=== PATIENT | male | born 1930 | race Caucasian/White ===

== ENCOUNTER 2019-07-29 17:17 | Emergency (ER) | payer MEDICARE ==
[2019-07-29] MEDS ORDERED: Sodium Chloride 0.9% 1000 ML 1,000 ML IV STA (18:04)
[2019-07-29] MEDS ORDERED: Zofran 4 MG/2 ML VIAL IV ONE (18:04)
[2019-07-29] MEDS ORDERED: MORPHINE SULFATE 2 MG INJ IV ONE (18:04)
--- NOTE | 2019-07-29 18:07 | ERPHSYRPT ---
- History of Present Illness Time Seen by Provider: 07/29/19 17:50 Source: patient, family Exam Limitations: no limitations Patient Subjective Stated Complaint: family states patient has had diarrhea and vomiting for four days. was inpatient at [facility] two days ago overnight and received fluids. was sent home yesterday to stay with family but is not any better. unable to keep fluids down. Triage Nursing Assessment: to room per w/c. skin w/d, color pale, resp nonlabored. patient alert. abd soft, nontender. Physician History: nausea vomiting and diarrhea for last 4 days. Also has some abdominal pain. Patient was admitted at [facility] the day before yesterday, was kept her overnight and was sent home and asked morning with a diagnosis of acute gastroenteritis at, dehydration and acute kidney injury. Daughter states that there he started feeling sick again even before they reached home. Timing/Duration: day(s) (4), intermittent Severity: moderate Modifying Factors: Improves With: eating. Worsens With: cold therapy, immobilization, medication, movement, rest Associated Symptoms: nausea, vomiting, abdominal pain Allergies/Adverse Reactions: aspirin Adverse Reaction (Verified 07/29/19 17:38) Hx Tetanus, Diphtheria Vaccination/Date Given: No Hx Influenza Vaccination/Date Given: No Hx Pneumococcal Vaccination/Date Given: No - Review of Systems Constitutional: No Fever, No Chills Eyes: No Symptoms Ears, Nose, & Throat: No Symptoms Respiratory: No Cough, No Dyspnea Cardiac: No Chest Pain, No Edema, No Syncope Abdominal/Gastrointestinal: Abdominal Pain, Nausea, Vomiting, Diarrhea, No Constipation, No Hematemesis, No Hematochezia, No Melena, No Dysphagia, No Appetite Changes Genitourinary Symptoms: No Dysuria Musculoskeletal: No Back Pain, No Neck Pain Skin: No Rash Neurological: No Dizziness, No Focal Weakness, No Sensory Changes Psychological: No Symptoms Endocrine: No Symptoms All Other Systems: Reviewed and Negative - Past Medical History Pertinent Past Medical History: Yes Cardiac History: Arrhythmia, High Cholesterol, Hypertension Respiratory History: Bronchitis Endocrine Medical History: Diabetes Type II Musculoskeletal History: Arthritis GI Medical History: GERD Psycho-Social History: Anxiety Male Reproductive Disorders: Prostate Cancer Other Medical History: gout - Past Surgical History Past Surgical History: Yes Gastrointestinal: Hemorrhoidectomy Musculoskeletal: Orthopedic Surgery - Social History Smoking Status: Former smoker Exposure to second hand smoke: Yes Drug Use: none Patient Lives Alone: No - Nursing Vital Signs Nursing Vital Signs: Initial Vital Signs Temperature 97.6 F 07/29/19 17:36 Pulse Rate 63 07/29/19 17:36 Respiratory Rate 16 07/29/19 17:36 Blood Pressure 160/86 07/29/19 17:36 O2 Sat by Pulse Oximetry 98 07/29/19 17:36 Pain Scale Pain Intensity 0 - Physical Exam General Appearance: no apparent distress, alert Eye Exam: PERRL/EOMI, eyes nml inspection Ears, Nose, Throat Exam: normal ENT inspection, TMs normal, pharynx normal, moist mucous membranes Neck Exam: normal inspection, non-tender, supple, full range of motion Respiratory Exam: normal breath sounds, lungs clear, No respiratory distress Cardiovascular Exam: regular rate/rhythm, normal heart sounds, normal peripheral pulses Gastrointestinal/Abdomen Exam: soft, normal bowel sounds, No tenderness, No mass , No pulsatile mass, No rebound, No hernia, No hepatomegaly, No organomegaly, No splenomegaly Back Exam: normal inspection, normal range of motion, No CVA tenderness, No vertebral tenderness Extremity Exam: normal inspection, normal range of motion, pelvis stable Neurologic Exam: alert, oriented x 3, cooperative, normal mood/affect, nml cerebellar function, nml station & gait, sensation nml, No motor deficits Skin Exam: normal color, warm, dry, No rash Lymphatic Exam: No adenopathy SpO2: 98 - Course Nursing assessment & vital signs reviewed: Yes Ordered Tests: Active Orders 24 hr Category Date Time Status IV Insertion STAT Care 07/29/19 18:04 Active CBC W DIFF Stat Lab 07/29/19 18:40 Completed CMP Stat Lab 07/29/19 19:58 Completed LIPASE Stat Lab 07/29/19 18:40 Completed MAGNESIUM Stat Lab 07/29/19 18:40 Completed Medication Summary Discontinued Medications Generic Name Dose Route Start Last Admin Trade Name Freq PRN Reason Stop Dose Admin Sodium Chloride 1,000 mls @ 999 mls/hr 07/29/19 18:04 07/29/19 18:30 Sodium Chloride 0.9% 1000 Ml IV 07/29/19 19:04 999 mls/hr .Q1H1M STA Administration Sodium Chloride Confirm 07/29/19 18:23 Sodium Chloride 0.9% 1000 Ml Administered 07/29/19 18:24 Dose 1,000 mls @ ud .ROUTE .STK-MED ONE Morphine Sulfate 2 mg 07/29/19 18:04 07/29/19 18:37 Morphine Sulfate 2 Mg Inj IV 07/29/19 18:05 2 mg STAT ONE Administration Morphine Sulfate Confirm 07/29/19 18:23 Morphine Sulfate 2 Mg Inj Administered 07/29/19 18:24 Dose 2 mg .ROUTE .STK-MED ONE Ondansetron HCl 4 mg 07/29/19 18:04 07/29/19 18:35 Zofran 4 Mg/2 Ml Vial IV 07/29/19 18:05 4 mg STAT ONE Administration Ondansetron HCl Confirm 07/29/19 18:22 Zofran 4 Mg/2 Ml Vial Administered 07/29/19 18:23 Dose 4 mg .ROUTE .STK-MED ONE Lab/Rad Data: Laboratory Result Diagrams 07/29/19 18:40 07/29/19 19:58 Laboratory Results 07/29/19 07/29/19 07/29/19 Range/Units 19:58 18:40 18:40 WBC (4.0-10.5) K/mm3 RBC (4.1-5.6) M/mm3 Hgb (12.5-18.0) gm/dl Hct (42-50) % MCV (78-100) fl MCH (26-32) pg MCHC (32-36) g/dl RDW (11.5-14.0) % Plt Count (150-450) K/mm3 MPV (6-9.5) fl Gran % (36.0-66.0) % Eos # (Auto) (0-0.5) Absolute Lymphs (auto) (1.0-4.6) Absolute Monos (auto) (0.0-1.3) Lymphocytes % (24.0-44.0) % Monocytes % (0.0-12.0) % Eosinophils % (0.00-5.0) % Basophils % (0.0-0.4) % Absolute Granulocytes (1.4-6.9) Basophils # (0-0.4) Sodium 137 (137-145) mmol/L Potassium 3.6 (3.5-5.1) mmol/L Chloride 107 (98-107) mmol/L Carbon Dioxide 20 L (22-30) mmol/L Anion Gap 13.1 (5-15) MEQ/L BUN 19 (9-20) mg/dL Creatinine 1.22 (0.66-1.25) mg/dL Estimated GFR 59.7 ML/MIN Glucose 93 (74-106) mg/dL Calcium 8.7 (8.4-10.2) mg/dL Magnesium 1.7 (1.6-2.3) mg/dL Total Bilirubin 0.60 (0.2-1.3) mg/dL AST 24 (17-59) U/L ALT 14 (0-50) U/L Alkaline Phosphatase 89 (38-126) U/L Serum Total Protein 6.7 (6.3-8.2) g/dL Albumin 3.7 (3.5-5.0) g/dL Lipase 68 (23-300) U/L 07/29/19 Range/Units 18:40 WBC 4.3 (4.0-10.5) K/mm3 RBC 4.05 L (4.1-5.6) M/mm3 Hgb 11.0 L (12.5-18.0) gm/dl Hct 34.3 L (42-50) % MCV 84.7 (78-100) fl MCH 27.2 (26-32) pg MCHC 32.1 (32-36) g/dl RDW 16.3 H (11.5-14.0) % Plt Count 131 L (150-450) K/mm3 MPV 10.5 H (6-9.5) fl Gran % 33.4 L (36.0-66.0) % Eos # (Auto) 0.06 (0-0.5) Absolute Lymphs (auto) 1.68 (1.0-4.6) Absolute Monos (auto) 1.07 (0.0-1.3) Lymphocytes % 39.5 (24.0-44.0) % Monocytes % 25.2 H (0.0-12.0) % Eosinophils % 1.4 (0.00-5.0) % Basophils % 0.5 (0.0-0.4) % Absolute Granulocytes 1.42 (1.4-6.9) Basophils # 0.02 (0-0.4) Sodium (137-145) mmol/L Potassium (3.5-5.1) mmol/L Chloride (98-107) mmol/L Carbon Dioxide (22-30) mmol/L Anion Gap (5-15) MEQ/L BUN (9-20) mg/dL Creatinine (0.66-1.25) mg/dL Estimated GFR ML/MIN Glucose (74-106) mg/dL Calcium (8.4-10.2) mg/dL Magnesium (1.6-2.3) mg/dL Total Bilirubin (0.2-1.3) mg/dL AST (17-59) U/L ALT (0-50) U/L Alkaline Phosphatase (38-126) U/L Serum Total Protein (6.3-8.2) g/dL Albumin (3.5-5.0) g/dL Lipase (23-300) U/L - Progress Progress: improved Progress Note: 07/29/19 19:56 Awaiting results. 07/29/19 20:23 patient says I'm feeling great and I am ready go home. Counseled pt/family regarding: lab results, diagnosis, need for follow-up - Departure Departure Disposition: Home Clinical Impression: Nausea vomiting and diarrhea Condition: Good Critical Care Time: No Referrals: CHANDANA DUNNE MD [Primary Care Provider] - 07/30/19 Instructions: Vomiting -- Adult, Diarrhea and Traveler's Diarrhea -- Adult Prescriptions: Ondansetron ODT 4 MG [Zofran Odt 4 mg] 4 mg PO Q6H PRN PRN #10 tab.rapdis PRN Reason: Vomiting
[2019-07-29] MEDS ORDERED: Zofran 4 MG/2 ML VIAL ONE (18:22)
[2019-07-29] MEDS ORDERED: Sodium Chloride 0.9% 1000 ML 1,000 ML ONE (18:23)
[2019-07-29] MEDS ORDERED: MORPHINE SULFATE 2 MG INJ ONE (18:23)
[2019-07-29 18:41] LABS: Absolute Neutrophil Ct (ANC) 1.42 (1.4-6.9); BASOPHIL % 0.5 % (0.0-0.4); Basophil (Absolute #) 0.02 (0-0.4); Eosinophil % 1.4 % (0.00-5.0); Eosinophil (Absolute #) 0.06 (0-0.5); Hematocrit 34.3 % (42-50); Lymphocyte (Absolute #) 1.68 (1.0-4.6); Lymphocytes % 39.5 % (24.0-44.0); Mean Cell Volume 84.7 fl (78-100); Mean Corpuscular Hemoglobin 27.2 pg (26-32); Mean Corpuscular Hgb Concent. 32.1 g/dl (32-36); Mean Platelet Volume 10.5 fl (6-9.5); Monocyte (Absolute #) 1.07 (0.0-1.3); Monocytes % 25.2 % (0.0-12.0); Neutrophil % 33.4 % (36.0-66.0); Platelet Count 131 K/mm3 (150-450); Red Blood Count 4.05 M/mm3 (4.1-5.6); Red Cell Distribution Width 16.3 % (11.5-14.0); White Blood Count 4.3 K/mm3 (4.0-10.5)
[2019-07-29 20:07] LABS: ALBUMIN 3.7 g/dL (3.5-5.0); ANION GAP 13.1 MEQ/L (5-15); BILIRUBIN,TOTAL 0.6 mg/dL (0.2-1.3); Calcium 8.7 mg/dL (8.4-10.2); Creatinine 1 1.22 mg/dL (0.66-1.25); Potassium 3.6 mmol/L (3.5-5.1); Total Protein 6.7 g/dL (6.3-8.2)
[2019-07-29 21:47] VITALS: BP 185/75; PULSE 60; O2SAT 99
== END 2019-07-29 21:40 | disposition home or self-care (01) ==
LOC: ED 17:17
DX: R11.2 Nausea with vomiting, unspecified (principal); R19.7 Diarrhea, unspecified; I10 Essential (primary) hypertension; E11.9 Type 2 diabetes mellitus without complications; K21.9 Gastro-esophageal reflux disease without esophagitis; F41.9 Anxiety disorder, unspecified; Z85.46 Personal history of malignant neoplasm of prostate
CPT/HCPCS: 36000; 36415; 80053; 83690; 83735; 85025; 96374; 96375; 99284; J2270; J2405

== ENCOUNTER 2019-08-11 14:12 | Observation (INO) | payer MEDICARE ==
[2019-08-11] MEDS ORDERED: ZOFRAN ODT 4 MG PO PRN (15:33)
[2019-08-11] MEDS ORDERED: Sodium Chloride 0.9% 1000 ML 1,000 ML IV STA (16:38)
[2019-08-11] MEDS: Carafate 1 GM PO SCH (16:59)
[2019-08-11] MEDS ORDERED: Phenergan 25 MG INJ IV PRN (17:09)
[2019-08-11] MEDS ORDERED: NovoLOG Insulin SQ PRN (17:09)
[2019-08-11] MEDS ORDERED: FEVERALL 650 MG PR PRN (17:09)
[2019-08-11 17:45] LABS: Absolute Neutrophil Ct (ANC) 2.75 (1.4-6.9); BASOPHIL % 0.5 % (0.0-0.4); Basophil (Absolute #) 0.03 (0-0.4); Eosinophil (Absolute #) 0.36 (0-0.5); Hematocrit 32.1 % (42-50); Hemoglobin 10.3 gm/dl (12.5-18.0); Lymphocyte (Absolute #) 1.75 (1.0-4.6); Lymphocytes % 29.4 % (24.0-44.0); Mean Cell Volume 85.1 fl (78-100); Mean Corpuscular Hemoglobin 27.3 pg (26-32); Mean Corpuscular Hgb Concent. 32.1 g/dl (32-36); Mean Platelet Volume 10.3 fl (7.5-11.0); Monocyte (Absolute #) 1.07 (0.0-1.3); Neutrophil % 46.1 % (36.0-66.0); Platelet Count 171 K/mm3 (150-450); Red Blood Count 3.77 M/mm3 (4.1-5.6); Red Cell Distribution Width 15.5 % (11.5-14.0)
[2019-08-11 17:51] LABS: ALBUMIN 3.5 g/dL (3.5-5.0); ANION GAP 12.2 MEQ/L (5-15); BILIRUBIN,TOTAL 0.6 mg/dL (0.2-1.3); Calcium 8.9 mg/dL (8.4-10.2); Creatinine 1 1.78 mg/dL (0.66-1.25); Potassium 4.4 mmol/L (3.5-5.1); Total Protein 6.5 g/dL (6.3-8.2)
[2019-08-11] MEDS: ROCEPHIN 2 Gm-D5w 50ML BAG** 2 G/50 ML IVPB IV SCH (18:44)
[2019-08-11] MEDS: Zithromax 500 MG/ 250 ML NaCl Premix 500 MG/250 ML IVPB IV SCH (19:25)
[2019-08-11] MEDS: Pepcid 20 MG PO SCH (21:52)
[2019-08-11] MEDS: Flomax 0.4 MG PO SCH (21:52)
[2019-08-11] MEDS: Sodium Chloride 0.9% 1000 ML 1,000 ML IV SCH (21:52)
[2019-08-11] MEDS: ELIQUIS 2.5 MG TABLET PO SCH (21:53)
[2019-08-11] MEDS: TENORMIN 50 MG PO SCH (21:53)
[2019-08-11] MEDS ORDERED: NON-FORMULARY ITEM (Apixaban [Eliquis] 5 MG) PO SCH (22:00)
[2019-08-11] MEDS ORDERED: NON-FORMULARY ITEM (Ranitidine Hcl [Ranitidine Hcl] 150 MG) PO SCH (22:00)
[2019-08-12 01:15] LABS: Appearance CLEAR (CLEAR); Bilirubin NEGATIVE (NEGATIVE); Blood NEGATIVE Ery/ul (0-5); Glucose NEGATIVE (NEGATIVE); Ketones NEGATIVE (NEGATIVE); Leukocyte Esterase NEGATIVE (NEGATIVE); Nitrite NEGATIVE (NEGATIVE); Protein,Urine Dip NEGATIVE (Negative); Specific Gravity 1.005 (1.005-1.025); Urobilinogen NEGATIVE mg/dL (0-1)
[2019-08-12] MEDS: Carafate 1 GM PO SCH ×2 (07:51→17:06)
[2019-08-12] MEDS: Sodium Chloride 0.9% 1000 ML 1,000 ML IV SCH (07:51)
--- NOTE | 2019-08-12 08:38 | XRAY ---
Indication: Nausea and cough. Comparison: October 21, 2018. PA/lateral chest remains hyperinflated without focal infiltrate, consolidation, or large effusion. There remains a few tiny calcified granulomas. Heart is not enlarged again with tortuous descending aorta. Bony thorax intact again with mild osteopenia and degenerative changes. Impression: Stable nonacute hyperinflated chest with chronic features.
--- NOTE | 2019-08-12 08:39 | XRAY ---
Indication: Nausea, cough, intermittent constipation and diarrhea. Multiple contiguous axial images obtained through the abdomen and pelvis without contrast as ordered. Comparison: None Lung bases demonstrates bibasilar dependent atelectasis. No infiltrate or effusion. Heart is not enlarged. Small hiatal hernia with distal esophagus mildly distended presumed from gastroesophageal reflux. Stomach is distended with fluid/fluid. Noncontrasted stomach and bowel loops appear nonobstructed. Normal appendix. No free fluid/air. Urinary bladder is abnormally distended with enlarged prostate gland impressing on the base of the bladder. Left kidney demonstrates cortical thinning/scarring. No hydronephrosis or hydroureter. Remaining liver, gallbladder, pancreas, spleen, adrenal glands, kidneys, and ureters appear unremarkable for noncontrast exam. There are mild scattered aortoiliac calcifications without AAA. Osseous structures demonstrates osteopenia and mild/moderate degenerative changes throughout the thoracolumbar spine. 2 cm right sartorius and 3.2 cm left rectus femoris intermuscular lipomas. Impression: 1. Hiatal hernia with mild distended distal esophagus presumed from gastroesophageal reflux. 2. Abnormally distended urinary bladder with enlarged prostate gland. Rule out outlet obstruction/dysuria. 3. 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
[2019-08-12] MEDS ORDERED: NON-FORMULARY ITEM (Pravastatin Sodium [Pravastatin Sodium] 20 MG) PO SCH (10:00)
[2019-08-12] MEDS ORDERED: NON-FORMULARY ITEM (Glimepiride [Glimepiride] 1 MG) PO SCH (10:00)
[2019-08-12] MEDS: Protonix 40MG Tablet PO SCH (10:44)
[2019-08-12] MEDS: NORVASC 5 MG PO SCH (10:44)
[2019-08-12] MEDS: Amaryl 2 MG PO SCH (10:44)
[2019-08-12] MEDS: ZYLOPRIM 100 MG PO SCH (10:44)
[2019-08-12] MEDS: TENORMIN 50 MG PO SCH ×3 (10:44→20:19)
[2019-08-12] MEDS: ELIQUIS 2.5 MG TABLET PO SCH ×2 (10:44→20:19)
[2019-08-12] MEDS: Cozaar 50 MG PO SCH (10:45)
[2019-08-12] MEDS: ZOCOR 20MG PO SCH (10:45)
[2019-08-12] MEDS: Pepcid 20 MG PO SCH ×2 (10:45→20:26)
--- NOTE | 2019-08-12 13:16 | PCM.NOTE ---
Date and Time: 08/12/19 1315 Subjective Assessment: doing better - Review of Systems Constitutional: No Fever, No Chills Eyes: No Symptoms Ears, Nose, & Throat: No Symptoms Respiratory: No Cough, No Short Of Breath Cardiac: No Chest Pain, No Edema, No Syncope Abdominal/Gastrointestinal: No Abdominal Pain, No Nausea, No Vomiting, No Diarrhea Genitourinary Symptoms: No Dysuria Musculoskeletal: No Back Pain, No Neck Pain Skin: No Rash Neurological: No Dizziness, No Focal Weakness, No Sensory Changes Psychological: No Symptoms Endocrine: No Symptoms Hematologic/Lymphatic: No Symptoms Immunological/Allergic: No Symptoms Objective Exam General Appearance: no apparent distress, alert Neurologic Exam: alert, oriented x 3, cooperative, normal mood/affect, nml cerebellar function, sensation nml, No motor deficits Skin Exam: normal color, warm, dry Eye Exam: PERRL, EOMI, eyes nml inspection Ears, Nose, Throat Exam: normal ENT inspection, pharynx normal, moist mucous membranes Neck Exam: normal inspection, non-tender, supple, full range of motion Respiratory Exam: normal breath sounds, lungs clear, No respiratory distress Cardiovascular Exam: regular rate/rhythm, normal heart sounds Gastrointestinal/Abdomen Exam: soft, No tenderness, No mass Extremity Exam: normal inspection, normal range of motion Back Exam: normal inspection, normal range of motion, No CVA tenderness, No vertebral tenderness Male Genitalia Exam: deferred Rectal Exam: deferred OBJECTIVE DATA Vital Signs: Vital Signs - 24 hr Temp Pulse Resp BP BP BP Pulse Ox 08/12/19 10:44 56 L 184/77 08/12/19 08:00 98.2 F 56 L 16 184/77 96 08/12/19 07:42 97 08/12/19 04:00 97.7 F 55 L 17 134/65 96 08/12/19 00:00 97.7 F 65 17 160/70 98 08/11/19 22:25 66 16 97 08/11/19 21:53 65 186/78 08/11/19 20:00 97.9 F 65 18 186/78 97 08/11/19 15:32 98 F 62 20 171/76 92 L 08/11/19 14:47 97.8 F 55 L 20 192/74 94 L 08/11/19 14:39 97.8 F 55 L 20 192/74 94 L Pain Assessment - Last Documented Pain Intensity 0 Pain Scale Used 0-10 Pain Scale Intake and Output: Intake & Output 08/10/19 08/11/19 08/12/19 08/13/19 11:59 11:59 11:59 11:59 Intake Total 2581 Output Total 3050 Balance -469 Weight 82.2 kg Lab Results: Accuchecks Date 08/11/19 Time 22:00 Accucheck Value: 99 Accucheck Value: 152 Lab Results-Last 24 Hours 08/11/19 08/11/19 08/11/19 Range/Units 17:15 17:15 17:20 WBC 6.0 (4.0-10.5) K/mm3 RBC 3.77 L (4.1-5.6) M/mm3 Hgb 10.3 L (12.5-18.0) gm/dl Hct 32.1 L (42-50) % MCV 85.1 (78-100) fl MCH 27.3 (26-32) pg MCHC 32.1 (32-36) g/dl RDW 15.5 H (11.5-14.0) % Plt Count 171 (150-450) K/mm3 MPV 10.3 (7.5-11.0) fl Gran % 46.1 (36.0-66.0) % Eos # (Auto) 0.36 (0-0.5) Absolute Lymphs (auto) 1.75 (1.0-4.6) Absolute Monos (auto) 1.07 (0.0-1.3) Lymphocytes % 29.4 (24.0-44.0) % Monocytes % 18.0 H (0.0-12.0) % Eosinophils % 6.0 H (0.00-5.0) % Basophils % 0.5 (0.0-0.4) % Absolute Granulocytes 2.75 (1.4-6.9) Basophils # 0.03 (0-0.4) Sodium 135 L (137-145) mmol/L Potassium 4.4 (3.5-5.1) mmol/L Chloride 104 (98-107) mmol/L Carbon Dioxide 23 (22-30) mmol/L Anion Gap 12.2 (5-15) MEQ/L BUN 18 (9-20) mg/dL Creatinine 1.78 H (0.66-1.25) mg/dL Estimated GFR 38.6 ML/MIN Glucose 144 H (74-106) mg/dL Hemoglobin A1c (4.5-6.0) % Calcium 8.9 (8.4-10.2) mg/dL Total Bilirubin 0.60 (0.2-1.3) mg/dL AST 14 L (17-59) U/L ALT 10 (0-50) U/L Alkaline Phosphatase 90 (38-126) U/L NT-Pro-B Natriuret Pep (0-1800) pg/mL Serum Total Protein 6.5 (6.3-8.2) g/dL Albumin 3.5 (3.5-5.0) g/dL Amylase 72 (30-110) U/L Lipase 70 (23-300) U/L Urine Color (YELLOW) Urine Appearance (CLEAR) Urine pH (5-6) Ur Specific [place] (1.005-1.025) Urine Protein (Negative) Urine Ketones (NEGATIVE) Urine Blood (0-5) Srinivasan/ul Urine Nitrite (NEGATIVE) Urine Bilirubin (NEGATIVE) Urine Urobilinogen (0-1) mg/dL Ur Leukocyte Esterase (NEGATIVE) Urine WBC (Auto) (0-5) /HPF Urine RBC (Auto) (0-2) /HPF U Epithel Cells (Auto) (FEW) /HPF Urine Bacteria (Auto) (NEGATIVE) /HPF Urine Culture Reflexed (NO) Urine Glucose (NEGATIVE) mg/dL 08/11/19 08/11/19 08/11/19 Range/Units 18:15 Unknown Unknown WBC (4.0-10.5) K/mm3 RBC (4.1-5.6) M/mm3 Hgb (12.5-18.0) gm/dl Hct (42-50) % MCV (78-100) fl MCH (26-32) pg MCHC (32-36) g/dl RDW (11.5-14.0) % Plt Count (150-450) K/mm3 MPV (7.5-11.0) fl Gran % (36.0-66.0) % Eos # (Auto) (0-0.5) Absolute Lymphs (auto) (1.0-4.6) Absolute Monos (auto) (0.0-1.3) Lymphocytes % (24.0-44.0) % Monocytes % (0.0-12.0) % Eosinophils % (0.00-5.0) % Basophils % (0.0-0.4) % Absolute Granulocytes (1.4-6.9) Basophils # (0-0.4) Sodium (137-145) mmol/L Potassium (3.5-5.1) mmol/L Chloride (98-107) mmol/L Carbon Dioxide (22-30) mmol/L Anion Gap (5-15) MEQ/L BUN (9-20) mg/dL Creatinine (0.66-1.25) mg/dL Estimated GFR ML/MIN Glucose (74-106) mg/dL Hemoglobin A1c 6.45 H (4.5-6.0) % Calcium (8.4-10.2) mg/dL Total Bilirubin (0.2-1.3) mg/dL AST (17-59) U/L ALT (0-50) U/L Alkaline Phosphatase (38-126) U/L NT-Pro-B Natriuret Pep 390 (0-1800) pg/mL Serum Total Protein (6.3-8.2) g/dL Albumin (3.5-5.0) g/dL Amylase (30-110) U/L Lipase (23-300) U/L Urine Color STRAW (YELLOW) Urine Appearance CLEAR (CLEAR) Urine pH 6.0 (5-6) Ur Specific [place] 1.005 (1.005-1.025) Urine Protein NEGATIVE (Negative) Urine Ketones NEGATIVE (NEGATIVE) Urine Blood NEGATIVE (0-5) Srinivasan/ul Urine Nitrite NEGATIVE (NEGATIVE) Urine Bilirubin NEGATIVE (NEGATIVE) Urine Urobilinogen NEGATIVE (0-1) mg/dL Ur Leukocyte Esterase NEGATIVE (NEGATIVE) Urine WBC (Auto) NONE (0-5) /HPF Urine RBC (Auto) NONE (0-2) /HPF U Epithel Cells (Auto) NONE (FEW) /HPF Urine Bacteria (Auto) NONE (NEGATIVE) /HPF Urine Culture Reflexed NO (NO) Urine Glucose NEGATIVE (NEGATIVE) mg/dL Radiology Exams: Radiology Procedures Category Date Time Status ABDOMEN AND PELVIS W/0 CONTRAS [CT] Stat Exams 08/11/19 17:09 Completed CHEST 2 VIEWS (PA AND LAT) Stat Exams 08/11/19 18:44 Completed CHEST WITHOUT CONTRAST [CT] Stat Exams 08/12/19 13:10 Ordered Assessment/Plan (1) Benign prostatic hyperplasia Current Visit: Yes Status: Acute Qualifiers: Lower urinary tract symptom presence: symptoms present Lower urinary tract symptom detail: incomplete bladder emptying Qualified Code(s): N40.1 - Benign prostatic hyperplasia with lower urinary tract symptoms; R39.14 - Feeling of incomplete bladder emptying Code(s): N40.0 - BENIGN PROSTATIC HYPERPLASIA WITHOUT LOWER URINRY TRACT SYMP (2) Nausea vomiting and diarrhea Current Visit: No Status: Acute Code(s): R11.2 - NAUSEA WITH VOMITING, UNSPECIFIED; R19.7 - DIARRHEA, UNSPECIFIED
--- NOTE | 2019-08-12 16:57 | XRAY ---
Indication: Severe dysphasia. Multiple contiguous axial images obtained through the chest without contrast as ordered. Comparison: None Lungs demonstrates mild bilateral dependent atelectasis, minimal bibasilar fibrosis/scarring, and a few tiny bilateral calcified granulomas. No suspicious pulmonary mass, infiltrate, or effusion. Heart is not enlarged. Aorta demonstrates mild scattered calcifications without aneurysmal dilatation. Multiple small bilateral hilar and tiny subcarinal calcified lymph nodes. No pathologic mediastinal lymphadenopathy. Mid to distal esophagus is mildly fluid distended presumed from gastroesophageal reflux. Small hiatal hernia. Bony thorax demonstrates osteopenia and flowing osteophytes throughout the spine. CT abdomen/pelvis reported one day earlier. Impression: 1. Fluid distended mid to distal esophagus presumed from gastroesophageal reflux. Also small hiatal hernia. 2. No acute cardiopulmonary abnormalities on this noncontrast exam. 3. Evidence for old granulomatous disease.
[2019-08-12] MEDS: ROCEPHIN 2 Gm-D5w 50ML BAG** 2 G/50 ML IVPB IV SCH (17:06)
[2019-08-12] MEDS: Zithromax 500 MG/ 250 ML NaCl Premix 500 MG/250 ML IVPB IV SCH (17:51)
[2019-08-12] MEDS ORDERED: SENOKOT 8.6 MG PO PRN (18:08)
[2019-08-12] MEDS: Flomax 0.4 MG PO SCH (20:25)
[2019-08-13] MEDS: Sodium Chloride 0.9% 1000 ML 1,000 ML IV SCH (06:01)
[2019-08-13] MEDS: Carafate 1 GM PO SCH (08:26)
[2019-08-13] MEDS: Amaryl 2 MG PO SCH (08:26)
[2019-08-13] MEDS ORDERED: FLUZONE HIGH-DOSE 2019-20 SYR IM ONE (10:00)
[2019-08-13] MEDS: Protonix 40MG Tablet PO SCH (10:13)
[2019-08-13] MEDS: ELIQUIS 2.5 MG TABLET PO SCH (10:13)
[2019-08-13] MEDS: ZYLOPRIM 100 MG PO SCH (10:13)
[2019-08-13] MEDS: ZOCOR 20MG PO SCH (10:13)
[2019-08-13] MEDS: Pepcid 20 MG PO SCH (10:13)
[2019-08-13] MEDS: TENORMIN 50 MG PO SCH (10:13)
[2019-08-13] MEDS: Cozaar 50 MG PO SCH (10:15)
[2019-08-13] MEDS: NORVASC 5 MG PO SCH (10:15)
[2019-08-13 12:45] VITALS: BP 142/62; PULSE 59; O2SAT 95
== END 2019-08-13 14:50 | disposition home or self-care (01) ==
LOC: MED SURG 14:21
PROVIDERS: ADMIT General Practice; ATTEND General Practice
DX: E11.65 Type 2 diabetes mellitus with hyperglycemia (principal); R11.2 Nausea with vomiting, unspecified; E86.0 Dehydration; N40.0 Benign prostatic hyperplasia without lower urinary tract symptoms; R53.83 Other fatigue; I10 Essential (primary) hypertension; R19.7 Diarrhea, unspecified; M10.9 Gout, unspecified; Z79.01 Long term (current) use of anticoagulants; Z79.899 Other long term (current) drug therapy
CPT/HCPCS: 36415; 71046; 71250; 74176; 80053; 81001; 82150; 82962; 83036; 83690; 83880; 85025; 93005; 94760; 97161; 97165; 97530; G0378; J0456; J0696; A9270-GY

== ENCOUNTER 2019-08-19 17:29 | Emergency (ER) | payer MEDICARE ==
--- NOTE | 2019-08-19 19:18 | ERPHSYRPT ---
- History of Present Illness Time Seen by Provider: 08/19/19 19:00 Source: patient, family Patient Subjective Stated Complaint: Pt got out of [facility] on the or and pt finished his pill pack for the week and daughter called Dr. Dunne's office and asked if he was to be on the other medications that they had placed him on in the hospital because a script was not sent home, she was told that he was to be and they called the scripts in, one was for Amlodipine and pt presently takes 4 other blood pressure medicines, today was the first day taking the new blood pressure medicine, pt is now currently taking 5 blood pressure medicines, when the daughter came home today she found him not looking good and he said that he couldn't see, pt's blood pressure had gotten down in the 80's systolic Triage Nursing Assessment: Pt brought in to the ER by his daughter, vitals wnl, rates head pain 8/10, A&O x3, denies losing consciousness but came close, asymptomatic except for a head ache, no edema, lungs clear, PERRL Physician History: 89 y/o white male presents with headache and dizziness. pt was discharged to home approx 6 to 7 days ago for management of dehydration. pt was placed on an additional 2 medications that affect blood pressure. his blood pressure was very low at home after filling and taking new amlodipine. pt has appt with pcp at 1400 tomorrow. pt denies cp now and denies abd pain. pt did have cp earlier in the week Timing/Duration: today Severity: mild Associated Symptoms: headaches, other (dizziness) Allergies/Adverse Reactions: aspirin Adverse Reaction (Verified 08/19/19 18:43) Home Medications: Allopurinol 100 mg [Zyloprim 100 mg] 100 mg PO DAILY 08/11/19 [History] Amlodipine Besylate 5 mg [Norvasc 5 mg] 5 mg PO BID 08/11/19 [History] Apixaban [Eliquis] 5 mg PO BID 08/11/19 [History] Atenolol 50 mg [Tenormin 50 mg] 50 mg PO BID 08/11/19 [History] Glimepiride 1 mg PO DAILY 08/11/19 [History] Losartan Potassium 50 mg [Cozaar 50 MG] 50 mg PO DAILY 08/11/19 [History] Ondansetron ODT 4 MG [Zofran Odt 4 mg] 4 mg PO Q8H PRN PRN 08/11/19 [ History] Pantoprazole Sodium 40 mg PO DAILY 08/11/19 [History] Pravastatin Sodium 20 mg PO DAILY 08/11/19 [History] Ranitidine HCl 150 mg PO BID 08/11/19 [History] Sucralfate 1 gm [Carafate 1 GM] 1 gm PO BID 08/11/19 [History] Tamsulosin HCl 0.4 mg [Flomax 0.4 MG] 0.4 mg PO HS 08/11/19 [History] Benzonatate 100 mg PO TID 08/19/19 [History] Magnesium Oxide [Magnesium] 400 mg PO DAILY 08/19/19 [History] Metoclopramide HCl 5 mg PO TID 08/19/19 [History] Potassium Chloride [Klor-Con M10] 20 meq PO BID 08/19/19 [History] clonazePAM [Clonazepam] 0.5 mg PO BID 08/19/19 [History] hydroCHLOROthiazide [Hydrochlorothiazide] 12.5 mg PO DAILY 08/19/19 [History] Hx Tetanus, Diphtheria Vaccination/Date Given: No Hx Influenza Vaccination/Date Given: No Hx Pneumococcal Vaccination/Date Given: No - Review of Systems Constitutional: No Symptoms Eyes: No Symptoms Ears, Nose, & Throat: No Symptoms Respiratory: No Symptoms Cardiac: No Symptoms Abdominal/Gastrointestinal: No Symptoms Genitourinary Symptoms: No Symptoms Musculoskeletal: No Symptoms Skin: No Symptoms Neurological: Dizziness, Headache Psychological: No Symptoms Endocrine: No Symptoms Hematologic/Lymphatic: No Symptoms Immunological/Allergic: No Symptoms All Other Systems: Reviewed and Negative - Past Medical History Pertinent Past Medical History: Yes Neurological History: TIA ENT History: No Pertinent History Cardiac History: Arrhythmia, High Cholesterol, Hypertension Respiratory History: Bronchitis Endocrine Medical History: Diabetes Type II Musculoskeletal History: Arthritis GI Medical History: GERD History: No Pertinent History Psycho-Social History: Anxiety Male Reproductive Disorders: Prostate Cancer Other Medical History: gout, 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 - Past Surgical History Past Surgical History: Yes Neuro Surgical History: No Pertinent History Cardiac: No Pertinent History Respiratory: No Pertinent History Gastrointestinal: Hemorrhoidectomy Genitourinary: No Pertinent History Musculoskeletal: Orthopedic Surgery Male Surgical History: No Pertinent History - Social History Smoking Status: Never smoker Exposure to second hand smoke: No Drug Use: none Patient Lives Alone: Yes - Nursing Vital Signs Nursing Vital Signs: Initial Vital Signs Temperature 97.6 F 08/19/19 18:27 Pulse Rate 58 L 08/19/19 18:27 Blood Pressure 126/67 08/19/19 18:27 O2 Sat by Pulse Oximetry 97 08/19/19 18:27 Pain Scale Pain Intensity 0 - Physical Exam General Appearance: no apparent distress, alert, anxiety Eye Exam: PERRL/EOMI, eyes nml inspection Ears, Nose, Throat Exam: normal ENT inspection, moist mucous membranes Neck Exam: normal inspection, non-tender, supple, full range of motion Respiratory Exam: normal breath sounds, lungs clear, airway intact, No chest tenderness, No respiratory distress Cardiovascular Exam: regular rate/rhythm, normal heart sounds, normal peripheral pulses Gastrointestinal/Abdomen Exam: soft, normal bowel sounds, No tenderness Rectal Exam: not done Back Exam: normal inspection, normal range of motion, No CVA tenderness, No vertebral tenderness Extremity Exam: normal inspection, normal range of motion, pelvis stable Neurologic Exam: alert, oriented x 3, cooperative, diamond setter II-XII nml as tested, normal mood/affect, nml cerebellar function, nml station & gait Skin Exam: normal color, warm, dry Lymphatic Exam: No adenopathy SpO2 Interpretation: normal SpO2: 97 O2 Delivery: Room Air - Course Nursing assessment & vital signs reviewed: Yes EKG Interpreted by Me: RATE (57), Sinus Rhythm, NORMAL AXIS, NORMAL INTERVALS, NORMAL QRS, Other (no change from comparison ekg dated 08/11/2019) Ordered Tests: Active Orders 24 hr Category Date Time Status EKG-ER Only STAT Care 08/19/19 19:19 Active IV Insertion STAT Care 08/19/19 19:19 Active HEAD WITHOUT CONTRAST [CT] Stat Exams 08/19/19 19:20 Taken CBC W DIFF Stat Lab 08/19/19 19:45 Completed CMP Stat Lab 08/19/19 19:45 Completed Lactic Acid Stat Lab 08/19/19 19:19 Completed TROPONIN Q3H Lab 08/19/19 19:47 Completed TROPONIN Q3H Lab 08/19/19 22:30 Ordered UA W/RFX UR CULTURE Stat Lab 08/19/19 22:00 Completed Medication Summary Discontinued Medications Generic Name Dose Route Start Last Admin Trade Name Jeri PRN Reason Stop Dose Admin Sodium Chloride 1,000 mls @ 999 mls/hr 08/19/19 19:19 08/19/19 19:38 Sodium Chloride 0.9% 1000 Ml IV 08/19/19 20:19 999 mls/hr .Q1H1M STA Administration Sodium Chloride Confirm 08/19/19 19:36 Sodium Chloride 0.9% 1000 Ml Administered 08/19/19 19:37 Dose 1,000 mls @ ud .ROUTE .STK-MED ONE Lab/Rad Data: Laboratory Result Diagrams 08/19/19 19:45 08/19/19 19:45 Laboratory Results 08/19/19 08/19/19 08/19/19 Range/Units 22:00 19:47 19:45 WBC (4.0-10.5) K/mm3 RBC (4.1-5.6) M/mm3 Hgb (12.5-18.0) gm/dl Hct (42-50) % MCV (78-100) fl MCH (26-32) pg MCHC (32-36) g/dl RDW (11.5-14.0) % Plt Count (150-450) K/mm3 MPV (7.5-11.0) fl Gran % (36.0-66.0) % Eos # (Auto) (0-0.5) Absolute Lymphs (auto) (1.0-4.6) Absolute Monos (auto) (0.0-1.3) Lymphocytes % (24.0-44.0) % Monocytes % (0.0-12.0) % Eosinophils % (0.00-5.0) % Basophils % (0.0-0.4) % Absolute Granulocytes (1.4-6.9) Basophils # (0-0.4) Sodium 136 L (137-145) mmol/L Potassium 4.4 (3.5-5.1) mmol/L Chloride 101 (98-107) mmol/L Carbon Dioxide 25 (22-30) mmol/L Anion Gap 14.8 (5-15) MEQ/L BUN 21 H (9-20) mg/dL Creatinine 1.74 H (0.66-1.25) mg/dL Estimated GFR 39.6 ML/MIN Glucose 97 (74-106) mg/dL Lactic Acid (0.4-2.0) Calcium 8.8 (8.4-10.2) mg/dL Total Bilirubin 0.50 (0.2-1.3) mg/dL AST 14 L (17-59) U/L ALT 9 (0-50) U/L Alkaline Phosphatase 102 (38-126) U/L Troponin I < 0.012 (0.000-0.034) ng/mL Serum Total Protein 7.0 (6.3-8.2) g/dL Albumin 3.8 (3.5-5.0) g/dL Urine Color YELLOW (YELLOW) Urine Appearance CLEAR (CLEAR) Urine pH 6.0 (5-6) Ur Specific [place] 1.006 (1.005-1.025) Urine Protein NEGATIVE (Negative) Urine Ketones NEGATIVE (NEGATIVE) Urine Blood NEGATIVE (0-5) Srinivasan/ul Urine Nitrite NEGATIVE (NEGATIVE) Urine Bilirubin NEGATIVE (NEGATIVE) Urine Urobilinogen NEGATIVE (0-1) mg/dL Ur Leukocyte Esterase NEGATIVE (NEGATIVE) Urine WBC (Auto) 0-2 (0-5) /HPF Urine RBC (Auto) NONE (0-2) /HPF U Hyaline Cast (Auto) 3-5 (0-2) /LPF U Epithel Cells (Auto) NONE (FEW) /HPF Urine Bacteria (Auto) FEW (NEGATIVE) /HPF Urine Mucus (Auto) SLIGHT (NEGATIVE) /HPF Urine Culture Reflexed NO (NO) Urine Glucose NEGATIVE (NEGATIVE) mg/dL 08/19/19 08/19/19 Range/Units 19:45 19:19 WBC 5.6 (4.0-10.5) K/mm3 RBC 4.00 L (4.1-5.6) M/mm3 Hgb 11.0 L (12.5-18.0) gm/dl Hct 34.3 L (42-50) % MCV 85.8 (78-100) fl MCH 27.5 (26-32) pg MCHC 32.1 (32-36) g/dl RDW 16.1 H (11.5-14.0) % Plt Count 168 (150-450) K/mm3 MPV 10.4 (7.5-11.0) fl Gran % 46.7 (36.0-66.0) % Eos # (Auto) 0.21 (0-0.5) Absolute Lymphs (auto) 1.70 (1.0-4.6) Absolute Monos (auto) 1.03 (0.0-1.3) Lymphocytes % 30.4 (24.0-44.0) % Monocytes % 18.4 H (0.0-12.0) % Eosinophils % 3.8 (0.00-5.0) % Basophils % 0.7 (0.0-0.4) % Absolute Granulocytes 2.62 (1.4-6.9) Basophils # 0.04 (0-0.4) Sodium (137-145) mmol/L Potassium (3.5-5.1) mmol/L Chloride (98-107) mmol/L Carbon Dioxide (22-30) mmol/L Anion Gap (5-15) MEQ/L BUN (9-20) mg/dL Creatinine (0.66-1.25) mg/dL Estimated GFR ML/MIN Glucose (74-106) mg/dL Lactic Acid 1.2 (0.4-2.0) Calcium (8.4-10.2) mg/dL Total Bilirubin (0.2-1.3) mg/dL AST (17-59) U/L ALT (0-50) U/L Alkaline Phosphatase (38-126) U/L Troponin I (0.000-0.034) ng/mL Serum Total Protein (6.3-8.2) g/dL Albumin (3.5-5.0) g/dL Urine Color (YELLOW) Urine Appearance (CLEAR) Urine pH (5-6) Ur Specific [place] (1.005-1.025) Urine Protein (Negative) Urine Ketones (NEGATIVE) Urine Blood (0-5) Srinivasan/ul Urine Nitrite (NEGATIVE) Urine Bilirubin (NEGATIVE) Urine Urobilinogen (0-1) mg/dL Ur Leukocyte Esterase (NEGATIVE) Urine WBC (Auto) (0-5) /HPF Urine RBC (Auto) (0-2) /HPF U Hyaline Cast (Auto) (0-2) /LPF U Epithel Cells (Auto) (FEW) /HPF Urine Bacteria (Auto) (NEGATIVE) /HPF Urine Mucus (Auto) (NEGATIVE) /HPF Urine Culture Reflexed (NO) Urine Glucose (NEGATIVE) mg/dL - Progress Progress: improved, re-examined Progress Note: 08/19/19 21:52 ct head-non acute senile brain Counseled pt/family regarding: lab results, diagnosis, need for follow-up, rad results - Departure Departure Disposition: Home Clinical Impression: Dizziness Condition: Stable Critical Care Time: No Referrals: CHANDANA DUNNE MD [Primary Care Provider] - Additional Instructions: hold all your evening and morning blood pressure medications. follow up at your scheduled primary doctor appointment tomorrow at 1400
[2019-08-19] MEDS ORDERED: Sodium Chloride 0.9% 1000 ML 1,000 ML IV STA (19:19)
[2019-08-19] MEDS ORDERED: Sodium Chloride 0.9% 1000 ML 1,000 ML ONE (19:36)
[2019-08-19 20:03] LABS: Absolute Neutrophil Ct (ANC) 2.62 (1.4-6.9); BASOPHIL % 0.7 % (0.0-0.4); Basophil (Absolute #) 0.04 (0-0.4); Eosinophil % 3.8 % (0.00-5.0); Eosinophil (Absolute #) 0.21 (0-0.5); Hematocrit 34.3 % (42-50); Lymphocytes % 30.4 % (24.0-44.0); Mean Cell Volume 85.8 fl (78-100); Mean Corpuscular Hemoglobin 27.5 pg (26-32); Mean Corpuscular Hgb Concent. 32.1 g/dl (32-36); Mean Platelet Volume 10.4 fl (7.5-11.0); Monocyte (Absolute #) 1.03 (0.0-1.3); Monocytes % 18.4 % (0.0-12.0); Neutrophil % 46.7 % (36.0-66.0); Platelet Count 168 K/mm3 (150-450); Red Cell Distribution Width 16.1 % (11.5-14.0); White Blood Count 5.6 K/mm3 (4.0-10.5)
[2019-08-19 20:08] LABS: ALBUMIN 3.8 g/dL (3.5-5.0); ANION GAP 14.8 MEQ/L (5-15); BILIRUBIN,TOTAL 0.5 mg/dL (0.2-1.3); Calcium 8.8 mg/dL (8.4-10.2); Creatinine 1 1.74 mg/dL (0.66-1.25); Potassium 4.4 mmol/L (3.5-5.1)
[2019-08-19 21:53] VITALS: O2SAT 97
[2019-08-19 22:08] LABS: Appearance CLEAR (CLEAR); Bacteria FEW /HPF (NEGATIVE); Bilirubin NEGATIVE (NEGATIVE); Blood NEGATIVE Ery/ul (0-5); Glucose NEGATIVE (NEGATIVE); Ketones NEGATIVE (NEGATIVE); Leukocyte Esterase NEGATIVE (NEGATIVE); Mucus SLIGHT /HPF (NEGATIVE); Nitrite NEGATIVE (NEGATIVE); Protein,Urine Dip NEGATIVE (Negative); Specific Gravity 1.006 (1.005-1.025); Urobilinogen NEGATIVE mg/dL (0-1); WBC 0-2 /HPF (0-5)
[2019-08-19 22:19] VITALS: BP 134/66; PULSE 55
--- NOTE | 2019-08-20 08:49 | XRAY ---
Indication: Headache and dizziness. Hypotension. Multiple contiguous axial images obtained through the head without contrast. Comparison: None Age-appropriate global atrophy and minimal periventricular degenerative micro-ischemia. No acute intracranial hemorrhage, abnormal extra-axial fluid collection, or mass effect. Fourth ventricle is midline without hydrocephalus. 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 Bony calvarium intact. Visualized paranasal sinuses and mastoid air cells are clear. Impression: Nonacute senile brain. Incidental right frontal calcified meningioma.
== END 2019-08-19 22:35 | disposition home or self-care (01) ==
LOC: ED 17:29
DX: R42 Dizziness and giddiness (principal); I10 Essential (primary) hypertension; E78.00 Pure hypercholesterolemia, unspecified; E11.9 Type 2 diabetes mellitus without complications; K21.9 Gastro-esophageal reflux disease without esophagitis; F41.9 Anxiety disorder, unspecified; Z86.73 Personal history of transient ischemic attack (TIA), and cerebral infarction without residual deficits; Z85.828 Personal history of other malignant neoplasm of skin; Z79.01 Long term (current) use of anticoagulants; Z79.899 Other long term (current) drug therapy; Z85.46 Personal history of malignant neoplasm of prostate
CPT/HCPCS: 36000; 36415; 70450; 80053; 81001; 83605; 84484; 85025; 93005; 96360; 99284

== ENCOUNTER 2019-08-24 14:40 | Inpatient (IN) | payer MEDICARE ==
[2019-08-24 16:11] LABS: Hematocrit 36.5 % (42-50); Hemoglobin 11.6 gm/dl (12.5-18.0); Mean Cell Volume 86.5 fl (78-100); Mean Corpuscular Hemoglobin 27.5 pg (26-32); Mean Corpuscular Hgb Concent. 31.8 g/dl (32-36); Mean Platelet Volume 10.7 fl (7.5-11.0); Platelet Count 163 K/mm3 (150-450); Red Blood Count 4.22 M/mm3 (4.1-5.6); Red Cell Distribution Width 16.1 % (11.5-14.0); White Blood Count 6.4 K/mm3 (4.0-10.5)
[2019-08-24 16:17] LABS: ALBUMIN 4.1 g/dL (3.5-5.0); ANION GAP 16.2 MEQ/L (5-15); BILIRUBIN,TOTAL 0.9 mg/dL (0.2-1.3); Calcium 9.3 mg/dL (8.4-10.2); Creatinine 1 1.79 mg/dL (0.66-1.25); Total Protein 7.3 g/dL (6.3-8.2)
[2019-08-24] MEDS ORDERED: ZOFRAN ODT 4 MG PO PRN (16:46)
[2019-08-24] MEDS: ZOCOR 20MG PO SCH (17:56)
[2019-08-24] MEDS: Reglan 10 MG PO SCH (17:56)
[2019-08-24] MEDS ORDERED: Sodium Chloride 0.9% 1000 ML 1,000 ML IV STA (18:38)
[2019-08-24] MEDS: Sodium Chloride 0.9% 1000 ML 1,000 ML IV SCH (20:07)
[2019-08-24] MEDS: Flomax 0.4 MG PO SCH (21:50)
[2019-08-24] MEDS: Klor Con 10 MEQ PO SCH (21:50)
[2019-08-24] MEDS: Pepcid 20 MG PO SCH (21:50)
[2019-08-24] MEDS: Carafate 1 GM PO SCH (21:50)
[2019-08-24] MEDS: ELIQUIS 2.5 MG TABLET PO SCH (21:50)
[2019-08-24] MEDS: TENORMIN 50 MG PO SCH (21:51)
[2019-08-24] MEDS: NORVASC 5 MG PO SCH (21:51)
[2019-08-24] MEDS: Klonopin 0.5 MG PO SCH (21:51)
[2019-08-24] MEDS: Tessalon Perles 100 MG PO SCH (21:51)
[2019-08-24] MEDS ORDERED: NON-FORMULARY ITEM (Ranitidine Hcl [Ranitidine Hcl] 150 MG) PO SCH (22:00)
[2019-08-24] MEDS ORDERED: METOCLOPRAMIDE HCL 5 MG PO SCH (22:00)
[2019-08-24] MEDS ORDERED: NON-FORMULARY ITEM (Apixaban [Eliquis] 5 MG) PO SCH (22:00)
[2019-08-24] MEDS ORDERED: POTASSIUM CHLORIDE 20 MEQ PO SCH (22:00)
[2019-08-25] MEDS: Sodium Chloride 0.9% 1000 ML 1,000 ML IV SCH ×2 (05:53→15:09)
[2019-08-25 06:41] LABS: Appearance SLIGHTLY CLOUDY (CLEAR); Bacteria RARE /HPF (NEGATIVE); Bilirubin NEGATIVE (NEGATIVE); Blood NEGATIVE Ery/ul (0-5); Glucose NEGATIVE (NEGATIVE); Ketones NEGATIVE (NEGATIVE); Leukocyte Esterase SMALL (NEGATIVE); Mucus SLIGHT /HPF (NEGATIVE); Nitrite NEGATIVE (NEGATIVE); Protein,Urine Dip NEGATIVE (Negative); Specific Gravity 1.009 (1.005-1.025); Urobilinogen NEGATIVE mg/dL (0-1)
[2019-08-25] MEDS: Amaryl 2 MG PO SCH (07:33)
[2019-08-25] MEDS: Reglan 10 MG PO SCH ×3 (07:33→16:06)
--- NOTE | 2019-08-25 08:39 | XRAY ---
Indication: Short of breath. Comparison: August 11, 2019. Portable chest less inflated and remains clear again with incidental calcified granulomas. Heart is not enlarged for AP portable technique. No new/acute findings. Impression: Stable nonacute chest.
[2019-08-25 08:40] LABS: Hematocrit 31.3 % (42-50); Hemoglobin 10.3 gm/dl (12.5-18.0); Mean Corpuscular Hemoglobin 28.3 pg (26-32); Mean Corpuscular Hgb Concent. 32.9 g/dl (32-36); Mean Platelet Volume 10.7 fl (7.5-11.0); Platelet Count 130 K/mm3 (150-450); Red Blood Count 3.64 M/mm3 (4.1-5.6); Red Cell Distribution Width 15.9 % (11.5-14.0)
--- NOTE | 2019-08-25 09:23 | PCM.NOTE ---
Date and Time: 08/25/19919 Subjective Assessment: doing ok, no vomiting - Review of Systems Constitutional: No Fever, No Chills Eyes: No Symptoms Ears, Nose, & Throat: No Symptoms Respiratory: No Cough, No Short Of Breath Cardiac: No Chest Pain, No Edema, No Syncope Abdominal/Gastrointestinal: No Abdominal Pain, No Nausea, No Vomiting, No Diarrhea Genitourinary Symptoms: No Dysuria Musculoskeletal: No Back Pain, No Neck Pain Skin: No Rash Neurological: No Dizziness, No Focal Weakness, No Sensory Changes Psychological: No Symptoms Endocrine: No Symptoms Hematologic/Lymphatic: No Symptoms Immunological/Allergic: No Symptoms Objective Exam General Appearance: no apparent distress, alert Neurologic Exam: alert, oriented x 3, cooperative, normal mood/affect, nml cerebellar function, sensation nml, No motor deficits Skin Exam: normal color, warm, dry Eye Exam: PERRL, EOMI, eyes nml inspection Ears, Nose, Throat Exam: normal ENT inspection, pharynx normal, moist mucous membranes Neck Exam: normal inspection, non-tender, supple, full range of motion Respiratory Exam: normal breath sounds, lungs clear, No respiratory distress Cardiovascular Exam: regular rate/rhythm, normal heart sounds Gastrointestinal/Abdomen Exam: soft, No tenderness, No mass Extremity Exam: normal inspection, normal range of motion Back Exam: normal inspection, normal range of motion, No CVA tenderness, No vertebral tenderness Male Genitalia Exam: deferred Rectal Exam: deferred OBJECTIVE DATA Vital Signs: Vital Signs - 24 hr Temp Pulse Resp BP Pulse Ox 08/25/19 08:00 9705 F 52 L 12 154/68 94 L 08/25/19 04:00 98.5 F 50 L 18 139/65 96 08/24/19 23:52 98 F 53 L 14 118/64 93 L 08/24/19 21:51 53 L 08/24/19 19:29 97.3 F 53 L 18 123/58 08/24/19 15:20 97.6 F 58 L 14 127/61 99 08/24/19 15:00 97.6 F 58 L 14 127/61 99 Pain Assessment - Last Documented Pain Intensity 0 Pain Scale Used 0-10 Pain Scale Intake and Output: Intake & Output 08/22/19 08/23/19 08/24/19 08/25/19 11:59 11:59 11:59 11:59 Intake Total 2994 Output Total 1050 Balance 1944 Weight 78.6 kg Lab Results: Accuchecks Date 08/25/19 Date 08/24/19 Time 08:15 Time 21:00 Accucheck Value: 101 Accucheck Value: 138 Lab Results-Last 24 Hours 08/24/19 08/24/19 08/25/19 Range/Units 15:50 15:50 05:22 WBC 6.4 (4.0-10.5) K/mm3 RBC 4.22 (4.1-5.6) M/mm3 Hgb 11.6 L (12.5-18.0) gm/dl Hct 36.5 L (42-50) % MCV 86.5 (78-100) fl MCH 27.5 (26-32) pg MCHC 31.8 L (32-36) g/dl RDW 16.1 H (11.5-14.0) % Plt Count 163 (150-450) K/mm3 MPV 10.7 (7.5-11.0) fl Sodium 139 (137-145) mmol/L Potassium 4.0 (3.5-5.1) mmol/L Chloride 100 (98-107) mmol/L Carbon Dioxide 26 (22-30) mmol/L Anion Gap 16.2 H (5-15) MEQ/L BUN 26 H (9-20) mg/dL Creatinine 1.79 H (0.66-1.25) mg/dL Estimated GFR 38.4 ML/MIN Glucose 202 H (74-106) mg/dL Calcium 9.3 (8.4-10.2) mg/dL Total Bilirubin 0.90 (0.2-1.3) mg/dL AST 20 (17-59) U/L ALT 11 (0-50) U/L Alkaline Phosphatase 119 (38-126) U/L Serum Total Protein 7.3 (6.3-8.2) g/dL Albumin 4.1 (3.5-5.0) g/dL Urine Color YELLOW (YELLOW) Urine Appearance SLIGHTLY CLOUDY (CLEAR) Urine pH 7.0 (5-6) Ur Specific [place] 1.009 (1.005-1.025) Urine Protein NEGATIVE (Negative) Urine Ketones NEGATIVE (NEGATIVE) Urine Blood NEGATIVE (0-5) Srinivasan/ul Urine Nitrite NEGATIVE (NEGATIVE) Urine Bilirubin NEGATIVE (NEGATIVE) Urine Urobilinogen NEGATIVE (0-1) mg/dL Ur Leukocyte Esterase SMALL (NEGATIVE) Urine WBC (Auto) 11-15 (0-5) /HPF Urine RBC (Auto) NONE (0-2) /HPF U Epithel Cells (Auto) NONE (FEW) /HPF Urine Bacteria (Auto) RARE (NEGATIVE) /HPF Urine Mucus (Auto) SLIGHT (NEGATIVE) /HPF Urine Culture Reflexed YES (NO) Urine Glucose NEGATIVE (NEGATIVE) mg/dL 08/25/19 Range/Units 08:24 WBC 6.0 (4.0-10.5) K/mm3 RBC 3.64 L (4.1-5.6) M/mm3 Hgb 10.3 L (12.5-18.0) gm/dl Hct 31.3 L (42-50) % MCV 86.0 (78-100) fl MCH 28.3 (26-32) pg MCHC 32.9 (32-36) g/dl RDW 15.9 H (11.5-14.0) % Plt Count 130 L (150-450) K/mm3 MPV 10.7 (7.5-11.0) fl Sodium (137-145) mmol/L Potassium (3.5-5.1) mmol/L Chloride (98-107) mmol/L Carbon Dioxide (22-30) mmol/L Anion Gap (5-15) MEQ/L BUN (9-20) mg/dL Creatinine (0.66-1.25) mg/dL Estimated GFR ML/MIN Glucose (74-106) mg/dL Calcium (8.4-10.2) mg/dL Total Bilirubin (0.2-1.3) mg/dL AST (17-59) U/L ALT (0-50) U/L Alkaline Phosphatase (38-126) U/L Serum Total Protein (6.3-8.2) g/dL Albumin (3.5-5.0) g/dL Urine Color (YELLOW) Urine Appearance (CLEAR) Urine pH (5-6) Ur Specific [place] (1.005-1.025) Urine Protein (Negative) Urine Ketones (NEGATIVE) Urine Blood (0-5) Srinivasan/ul Urine Nitrite (NEGATIVE) Urine Bilirubin (NEGATIVE) Urine Urobilinogen (0-1) mg/dL Ur Leukocyte Esterase (NEGATIVE) Urine WBC (Auto) (0-5) /HPF Urine RBC (Auto) (0-2) /HPF U Epithel Cells (Auto) (FEW) /HPF Urine Bacteria (Auto) (NEGATIVE) /HPF Urine Mucus (Auto) (NEGATIVE) /HPF Urine Culture Reflexed (NO) Urine Glucose (NEGATIVE) mg/dL Radiology Exams: Radiology Procedures Category Date Time Status CHEST 1 VIEW (PORTABLE) Urgent Exams 08/24/19 20:00 Completed Assessment/Plan (1) Benign prostatic hyperplasia Current Visit: Yes Status: Acute Qualifiers: Lower urinary tract symptom presence: symptoms present Code(s): N40.0 - BENIGN PROSTATIC HYPERPLASIA WITHOUT LOWER URINRY TRACT SYMP (2) Dizziness Current Visit: No Status: Acute Code(s): R42 - DIZZINESS AND GIDDINESS (3) Nausea vomiting and diarrhea Current Visit: Yes Status: Resolved Code(s): R11.2 - NAUSEA WITH VOMITING, UNSPECIFIED; R19.7 - DIARRHEA, UNSPECIFIED (4) CHF (congestive heart failure), NYHA class IV Current Visit: Yes Status: Acute Qualifiers: Congestive heart failure type: combined Congestive heart failure chronicity : acute on chronic Qualified Code(s): I50.43 - Acute on chronic combined systolic (congestive) and diastolic (congestive) heart failure Code(s): I50.9 - HEART FAILURE, UNSPECIFIED (5) HTN (hypertension) Current Visit: Yes Status: Acute Qualifiers: Hypertension type: essential hypertension Qualified Code(s): I10 - Essential (primary) hypertension Code(s): I10 - ESSENTIAL (PRIMARY) HYPERTENSION (6) COPD (chronic obstructive pulmonary disease) Current Visit: Yes Status: Acute Qualifiers: COPD type: chronic bronchitis
[2019-08-25 09:25] LABS: ANION GAP 14.1 MEQ/L (5-15); Calcium 8.1 mg/dL (8.4-10.2); Creatinine 1 1.4 mg/dL (0.66-1.25); Potassium 3.7 mmol/L (3.5-5.1)
[2019-08-25] MEDS ORDERED: NON-FORMULARY ITEM (Magnesium Oxide [Magnesium] 400 MG) PO SCH (10:00)
[2019-08-25] MEDS ORDERED: NON-FORMULARY ITEM (Glimepiride [Glimepiride] 1 MG) PO SCH (10:00)
[2019-08-25] MEDS ORDERED: NON-FORMULARY ITEM (Hydrochlorothiazide [Hydrochlorothiazide] 12.5 MG) PO SCH (10:00)
[2019-08-25] MEDS ORDERED: NON-FORMULARY ITEM (Pravastatin Sodium [Pravastatin Sodium] 20 MG) PO SCH (10:00)
[2019-08-25] MEDS: Klor Con 10 MEQ PO SCH ×2 (10:20→21:19)
[2019-08-25] MEDS: NORVASC 5 MG PO SCH ×2 (10:21→21:20)
[2019-08-25] MEDS: Carafate 1 GM PO SCH ×2 (10:21→21:19)
[2019-08-25] MEDS: MAG-OX 400 PO SCH (10:21)
[2019-08-25] MEDS: Cozaar 50 MG PO SCH (10:21)
[2019-08-25] MEDS: Pepcid 20 MG PO SCH ×2 (10:21→21:20)
[2019-08-25] MEDS: TENORMIN 50 MG PO SCH ×2 (10:21→21:20)
[2019-08-25] MEDS: Tessalon Perles 100 MG PO SCH ×3 (10:21→21:21)
[2019-08-25] MEDS: ZOCOR 20MG PO SCH (10:21)
[2019-08-25] MEDS: hydroDIURIL 25 MG PO SCH (10:21)
[2019-08-25] MEDS: Protonix 40MG Tablet PO SCH (10:22)
[2019-08-25] MEDS: ZYLOPRIM 100 MG PO SCH (10:22)
[2019-08-25] MEDS: Klonopin 0.5 MG PO SCH ×2 (10:22→21:19)
[2019-08-25] MEDS: ELIQUIS 2.5 MG TABLET PO SCH (10:24)
[2019-08-25] MEDS: Flomax 0.4 MG PO SCH (21:19)
[2019-08-25 22:16] LABS: Hematocrit 31.1 % (42-50); Hemoglobin 10.1 gm/dl (12.5-18.0)
[2019-08-26] MEDS: Sodium Chloride 0.9% 1000 ML 1,000 ML IV SCH ×3 (01:42→15:58)
[2019-08-26] MEDS ORDERED: DIPRIVAN 200 MG/20 ML IV ONE (06:18)
[2019-08-26] MEDS: Amaryl 2 MG PO SCH (07:50)
[2019-08-26] MEDS: Reglan 10 MG PO SCH ×3 (07:50→15:49)
--- NOTE | 2019-08-26 07:59 | CONS ---
CONSULT DATE: 08/26/2019 HISTORY: The patient is an 89 year-old with some hematemesis over the past couple of days and in the hospital for evaluation. The patient is a rather poor historian and also history is taken from the chart. He denies any current abdominal pain. He did pull his IV out earlier today and had blood all over his room from IV site leaking. PAST MEDICAL HISTORY: Gout. Prostate cancer. Hypertension. Arthritis. Diabetes mellitus type 2. PAST SURGICAL HISTORY: EGD eight to ten years ago. MEDICATIONS: He has been on ondansetron, potassium chloride, metoclopramide, Atenolol, Allopurinol, hydrochlorothiazide, losartan. He has been on Eliquis, Tamsulosin, amlodipine, MiraLAX, glimepiride, "bomperidone". ALLERGIES: SENSITIVE TO ASPIRIN HAD SOME GI UPSET WITH VOMITING. FAMILY HISTORY: Negative in regards to this problem. SOCIAL HISTORY: No alcohol abuse. Former smoker. REVIEW OF SYSTEMS: Fourteen systems reviewed per admission assessment, discussion with the patient. No current chest pain or palpitations. He is very hard of hearing. No abdominal pain currently. Otherwise pertinent for as noted above. PHYSICAL EXAMINATION: GENERAL: No acute distress. HEENT: Sclera nonicteric. NECK: No JVD. CHEST: Equal excursion. ABDOMEN: Soft, nontender. EXTREMITIES: There is a little bit of blood from the IV that came out this morning. NEURO: Alert, moving extremities symmetrically. IMPRESSION: Hematemesis unclear etiology. His Eliquis has been held. I feel he is candidate for upper endoscopy for evaluation. General risk of bleeding or infection, risk of bowel injury or perforation possibly requiring open procedure, risk of missed or nondiagnosis or incomplete exam possibly requiring other studies or procedures, general risk of anesthesia or sedation but not limited to. He is agreeable and consent obtained, will proceed when OR time available. Will proceed with EGD possible biopsy when OR time available.
--- NOTE | 2019-08-26 08:16 | OP ---
SURGERY DATE/TIME: 08/26/2019 0618 PREOPERATIVE DIAGNOSIS: Hematemesis unclear etiology. POSTOPERATIVE DIAGNOSES: 1) Minimal gastritis. 2) Distal esophagitis possible Foss's esophagus. No active bleeding. PROCEDURES: EGD with cold biopsy of antrum, multiple cold biopsies distal esophagus to evaluate for esophagitis versus Foss's versus other etiology. SURGEON: Dr. Jericho Alexandre. ANESTHESIA: MAC. ESTIMATED BLOOD LOSS: Minimal. INDICATIONS: As noted above. Risks and benefits explained in detail and not limited to and consent obtained. DESCRIPTION OF PROCEDURE AND FINDINGS: The patient is taken to the endoscopy room. MAC anesthesia introduced. After official time out and no disagreement with planned procedure, a bite block positioned. Video gastroscope easily passed through the esophagus through the patent pylorus to the junction of the second and third portion of the duodenum. Proximal duodenum grossly unremarkable. No signs of any inflammation or ulcer. The scope pulled back into the stomach. He had some mild erythema and possibly some minimal gastritis. Cold biopsy taken to evaluate for Helicobacter pylori. On retroflex there may have been a slight weakness of the hiatus. There are no signs of any obvious ulcers, masses or other mucosal lesions other than the mild gastric erythema. The scope pulled back. Gastroesophageal junction about 40 cm. He did have salmon pink mucosa extending up the esophagus a little bit whether this is early Foss's or variation of gastroesophageal junction cold biopsy taken. Again the gastroesophageal junction was around 40 cm. Just a little bit more cephalad of the salmon pink mucosa were some little splotchy areas whether he had some chronic esophagitis in the past year or whether this is some changes of Foss's is unclear. Multiple cold biopsies are taken. He did not have any gross active bleeding. There was question whether he had a flare up of esophagitis that triggered the hematemesis. Either way cold biopsies were taken. He appeared to have adequate hemostasis. The remainder more proximal esophageal mucosa was unremarkable. No signs of any other obvious masses or mucosal lesions. The scope is withdrawn. The patient tolerated the procedure well. There was no family here to discuss the findings with. It was felt that he should hold the NSAID's, aspirin or Eliquis for the next week. When he is released will see him back in the office next week to go over the path results.
[2019-08-26] MEDS: Klonopin 0.5 MG PO SCH ×2 (10:15→22:13)
[2019-08-26] MEDS: MAG-OX 400 PO SCH (10:15)
[2019-08-26] MEDS: ZOCOR 20MG PO SCH (10:15)
[2019-08-26] MEDS: ZYLOPRIM 100 MG PO SCH (10:16)
[2019-08-26] MEDS: Carafate 1 GM PO SCH ×2 (10:16→22:11)
[2019-08-26] MEDS: Cozaar 50 MG PO SCH (10:16)
[2019-08-26] MEDS: Pepcid 20 MG PO SCH ×2 (10:16→22:11)
[2019-08-26] MEDS: hydroDIURIL 25 MG PO SCH (10:16)
[2019-08-26] MEDS: Tessalon Perles 100 MG PO SCH ×3 (10:16→22:13)
[2019-08-26] MEDS: NORVASC 5 MG PO SCH ×2 (10:17→22:13)
[2019-08-26] MEDS: TENORMIN 50 MG PO SCH ×2 (10:17→22:13)
[2019-08-26] MEDS: Klor Con 10 MEQ PO SCH ×2 (10:17→22:11)
[2019-08-26] MEDS: Protonix 40MG Tablet PO SCH (10:17)
--- NOTE | 2019-08-26 14:03 | PCM.NOTE ---
Date and Time: 08/26/19 1402 Subjective Assessment: doing ok - Review of Systems Constitutional: No Fever, No Chills Eyes: No Symptoms Ears, Nose, & Throat: No Symptoms Respiratory: No Cough, No Short Of Breath Cardiac: No Chest Pain, No Edema, No Syncope Abdominal/Gastrointestinal: No Abdominal Pain, No Nausea, No Vomiting, No Diarrhea Genitourinary Symptoms: No Dysuria Musculoskeletal: No Back Pain, No Neck Pain Skin: No Rash Neurological: No Dizziness, No Focal Weakness, No Sensory Changes Psychological: No Symptoms Endocrine: No Symptoms Hematologic/Lymphatic: No Symptoms Immunological/Allergic: No Symptoms Objective Exam General Appearance: no apparent distress, alert Neurologic Exam: alert, oriented x 3, cooperative, normal mood/affect, nml cerebellar function, sensation nml, No motor deficits Skin Exam: normal color, warm, dry Eye Exam: PERRL, EOMI, eyes nml inspection Ears, Nose, Throat Exam: normal ENT inspection, pharynx normal, moist mucous membranes Neck Exam: normal inspection, non-tender, supple, full range of motion Respiratory Exam: normal breath sounds, lungs clear, No respiratory distress Cardiovascular Exam: regular rate/rhythm, normal heart sounds Gastrointestinal/Abdomen Exam: soft, No tenderness, No mass Extremity Exam: normal inspection, normal range of motion Back Exam: normal inspection, normal range of motion, No CVA tenderness, No vertebral tenderness Male Genitalia Exam: deferred Rectal Exam: deferred OBJECTIVE DATA Vital Signs: Vital Signs - 24 hr Temp Pulse Resp BP BP Pulse Ox 08/26/19 11:56 97.9 F 55 L 13 133/71 95 08/26/19 10:17 88 144/65 08/26/19 04:00 98.3 F 68 20 158/67 96 08/25/19 23:35 97.9 F 55 L 20 148/70 94 L 08/25/19 21:20 62 161/72 08/25/19 19:58 98.2 F 58 L 20 161/72 93 L 08/25/19 16:00 97.5 F 56 L 12 133/64 94 L Pain Assessment - Last Documented Pain Intensity 0 Pain Scale Used 0-10 Pain Scale Intake and Output: Intake & Output 08/24/19 08/25/19 08/26/19 08/27/19 11:59 11:59 11:59 11:59 Intake Total 3354 3072 80 Output Total 2850 1500 Balance 504 1572 80 Weight 78.6 kg 78.6 kg 78.6 kg Lab Results: Accuchecks Date 08/26/19 Date 08/26/19 Date 08/25/19 Time 12:00 Time 07:43 Time 16:52 Accucheck Value: 115 Accucheck Value: 106 Accucheck Value: 167 Accucheck Value: 108 Lab Results-Last 24 Hours 08/25/19 Range/Units 22:00 Hgb 10.1 L (12.5-18.0) gm/dl Hct 31.1 L (42-50) % Radiology Exams: Radiology Procedures Category Date Time Status CHEST 1 VIEW (PORTABLE) Urgent Exams 08/24/19 20:00 Completed Assessment/Plan (1) Pyelonephritis Current Visit: Yes Status: Acute Assessment & Plan: start rocephin Code(s): N12 - TUBULO-INTERSTITIAL NEPHRITIS, NOT SPCF ACUTE OR CHRONIC (2) Benign prostatic hyperplasia Current Visit: Yes Status: Acute Qualifiers: Lower urinary tract symptom presence: symptoms present Code(s): N40.0 - BENIGN PROSTATIC HYPERPLASIA WITHOUT LOWER URINRY TRACT SYMP (3) Dizziness Current Visit: No Status: Acute Code(s): R42 - DIZZINESS AND GIDDINESS (4) Nausea vomiting and diarrhea Current Visit: Yes Status: Resolved Code(s): R11.2 - NAUSEA WITH VOMITING, UNSPECIFIED; R19.7 - DIARRHEA, UNSPECIFIED (5) CHF (congestive heart failure), NYHA class IV Current Visit: Yes Status: Acute Qualifiers: Congestive heart failure type: combined Congestive heart failure chronicity : acute on chronic Qualified Code(s): I50.43 - Acute on chronic combined systolic (congestive) and diastolic (congestive) heart failure Code(s): I50.9 - HEART FAILURE, UNSPECIFIED (6) HTN (hypertension) Current Visit: Yes Status: Acute Qualifiers: Hypertension type: essential hypertension Qualified Code(s): I10 - Essential (primary) hypertension Code(s): I10 - ESSENTIAL (PRIMARY) HYPERTENSION (7) COPD (chronic obstructive pulmonary disease) Current Visit: Yes Status: Acute Qualifiers: COPD type: chronic bronchitis
[2019-08-26] MEDS: ROCEPHIN 1 Gm-D5w 50 ml Bag** 1 G/50 ML IVPB IV SCH (14:23)
[2019-08-26] MEDS: Flomax 0.4 MG PO SCH (22:14)
[2019-08-27] MEDS: Sodium Chloride 0.9% 1000 ML 1,000 ML IV SCH (01:34)
[2019-08-27] MEDS: Amaryl 2 MG PO SCH (08:16)
[2019-08-27] MEDS: Reglan 10 MG PO SCH ×2 (08:16→12:35)
[2019-08-27] MEDS: Protonix 40MG Tablet PO SCH (09:46)
[2019-08-27] MEDS: Carafate 1 GM PO SCH (09:46)
[2019-08-27] MEDS: hydroDIURIL 25 MG PO SCH (09:46)
[2019-08-27] MEDS: Pepcid 20 MG PO SCH (09:46)
[2019-08-27] MEDS: MAG-OX 400 PO SCH (09:46)
[2019-08-27] MEDS: ROCEPHIN 1 Gm-D5w 50 ml Bag** 1 G/50 ML IVPB IV SCH (09:46)
[2019-08-27] MEDS: Klonopin 0.5 MG PO SCH (09:46)
[2019-08-27] MEDS: Cozaar 50 MG PO SCH (09:46)
[2019-08-27] MEDS: Klor Con 10 MEQ PO SCH (09:47)
[2019-08-27] MEDS: ZOCOR 20MG PO SCH (09:47)
[2019-08-27] MEDS: Tessalon Perles 100 MG PO SCH (09:47)
[2019-08-27] MEDS: NORVASC 5 MG PO SCH (09:47)
[2019-08-27] MEDS: TENORMIN 50 MG PO SCH (09:47)
[2019-08-27] MEDS: ZYLOPRIM 100 MG PO SCH (09:48)
[2019-08-27 11:39] VITALS: BP 120/58; PULSE 73; O2SAT 96
--- NOTE | 2019-08-27 13:34 | PCM.DS ---
Discharge Summary Date of Admission: 08/24/19 14:54 Admitting Physician: CHANDANA DUNNE Consults: Consults on Case 08/25/19 11:36 Consult Surgery ROUTINE Primary Care Provider: CHANDANA DUNNE Allergies Allergies aspirin Adverse Reaction (Verified 08/19/19 18:43) Hospital Summary - Hospital Course Hospital Course: Chief Complaint Diagnosis UPPER GI BLEED Allergies Allergy/AdvReac Type Severity Reaction Status Date / Time aspirin AdvReac Verified 08/19/19 18:43 Vital Signs (Last 24 hours) Temp Pulse Resp BP BP Pulse Ox 08/27/19 11:37 98.1 F 73 12 120/58 96 08/27/19 09:47 67 143/66 08/27/19 07:10 98.7 F 63 18 143/66 95 08/27/19 04:00 98.6 F 68 18 135/74 95 08/26/19 23:52 98.5 F 59 L 18 169/74 95 08/26/19 22:13 58 L 124/58 08/26/19 20:00 98.7 F 57 L 20 124/58 96 08/26/19 16:00 97.8 F 52 L 14 150/72 96 Home Medications Medication Instructions Recorded Confirmed Last Taken Type Ciprofloxacin HCl [Cipro] 500 mg PO BID #20 tablet 08/27/19 Unknown Rx Current Medications Generic Name Dose Route Start Last Admin Trade Name Freq PRN Reason Stop Dose Admin Allopurinol 100 mg 08/25/19 10:00 08/27/19 09:48 Zyloprim 100 Mg PO 09/24/19 09:59 100 mg DAILY DRAKE Administration Amlodipine Besylate 5 mg 08/24/19 22:00 08/27/19 09:47 Norvasc 5 Mg PO 09/23/19 21:59 5 mg BID DRAEK Administration Atenolol 50 mg 08/24/19 22:00 08/27/19 09:47 Tenormin 50 Mg PO 09/23/19 21:59 50 mg BID DRAKE Administration Benzonatate 100 mg 08/24/19 22:00 08/27/19 09:47 Tessalon Perles 100 Mg PO 09/23/19 21:59 100 mg TID DRAKE Administration Clonazepam 0.5 mg 08/24/19 22:00 08/27/19 09:46 Klonopin 0.5 Mg PO 09/23/19 21:59 0.5 mg BID DRAKE Administration Famotidine 20 mg 08/24/19 22:00 08/27/19 09:46 Pepcid 20 Mg PO 09/23/19 21:59 20 mg BID DRAKE Administration Glimepiride 1 mg 08/25/19 08:00 08/27/19 08:16 Amaryl 2 Mg PO 09/24/19 07:59 1 mg BREAKFAST DRAKE Administration Hydrochlorothiazide 12.5 mg 08/25/19 10:00 08/27/19 09:46 Hydrodiuril 25 Mg PO 09/24/19 09:59 12.5 mg DAILY DRAKE Administration Sodium Chloride 1,000 mls @ 100 mls/hr 08/24/19 18:45 08/27/19 01:34 Sodium Chloride 0.9% 1000 Ml IV 09/23/19 18:44 100 mls/hr .Q10H DRAKE Administration Ceftriaxone Sodium/Dextrose 1 g in 50 mls @ 100 mls/hr 08/26/19 14:15 09:46 Rocephin 1 Gm-D5w 50 Ml Bag IV 09/25/19 14:14 100 mls/hr Q24H10 DRAKE Administration Losartan Potassium 50 mg 08/25/19 10:00 08/27/19 09:46 Cozaar 50 Mg PO 09/24/19 09:59 50 mg DAILY DRAKE Administration Magnesium Oxide 400 mg 08/25/19 10:00 08/27/19 09:46 Mag-Ox 400 PO 09/24/19 09:59 400 mg DAILY DRAKE Administration Metoclopramide HCl 5 mg 08/24/19 17:00 08/27/19 12:35 Reglan 10 Mg PO 09/23/19 16:59 5 mg AC DRAKE Administration Miscellaneous Medication 1 each 08/26/19 10:00 08/26/19 10:18 No Nsaids/Asa/Plavix MC 09/01/19 10:01 1 each DAILY DRAKE Administration Ondansetron HCl 4 mg 08/24/19 16:46 Zofran Odt 4 Mg PO 09/23/19 16:45 Q8H PRN PRN VOMITING Pantoprazole Sodium 40 mg 08/25/19 10:00 08/27/19 09:46 Protonix 40mg Tablet PO 09/24/19 09:59 40 mg DAILY DRAKE Administration Potassium Chloride 20 meq 08/24/19 22:00 08/27/19 09:47 Klor Con 10 Meq PO 09/23/19 21:59 20 meq BID DRAKE Administration Simvastatin 20 mg 08/24/19 18:00 08/27/19 09:47 Zocor 20mg PO 09/23/19 17:59 20 mg DAILY DRAKE Administration Sucralfate 1 g 08/24/19 22:00 08/27/19 09:46 Carafate 1 Gm PO 09/23/19 21:59 1 g BID DRAKE Administration Tamsulosin HCl 0.4 mg 08/24/19 22:00 08/26/19 22:14 Flomax 0.4 Mg PO 09/23/19 21:59 0.4 mg HS DRAKE Administration Discontinued Medications Generic Name Dose Route Start Last Admin Trade Name Freq PRN Reason Stop Dose Admin Apixaban 5 mg 08/24/19 22:00 08/25/19 10:24 Eliquis 2.5 Mg Tablet PO 09/23/19 21:59 Not Given BID DRAKE Sodium Chloride 1,000 mls @ 999 mls/hr 08/24/19 18:38 08/24/19 18:51 Sodium Chloride 0.9% 1000 Ml IV 08/24/19 19:38 999 mls/hr .Q1H1M STA Administration Propofol Confirm 08/26/19 06:18 Diprivan 200 Mg/20 Ml Administered 08/26/19 06:19 Dose 200 mg IV .STK-MED ONE Intake & Output (Last 24 hours) 08/25/19 08/26/19 08/27/19 08/28/19 11:59 11:59 11:59 11:59 Intake Total 3354 3072 3617 Output Total 2850 1500 3150 Balance 504 9872 467 Weight 78.6 kg 78.6 kg 78.6 kg Microbiology Results (Last 24 hours) 08/25/19 05:22 Clean Catch Midstream Urine Culture - Final Enterococcus Faecalis Orders (Last 24 hours) Category Date Time Status Discharge Routine Discharge 08/27/19 Ordered Ceftriaxone 1 GM/50 ML PREMIX* [ROCEPHIN 1 Gm-D5w 50 ml Med 08/26/19 14:15 Active Bag] 1 g in 50 ml IV Q24H10 Patient Care Notes (Last 24 hours) 08/27/19 12:57 Nursing Note by Mariia Tsang CALLED FOR BLS TRANSPORT 08/27/19 @ 1256 Initialized on 08/27/19 12:57 - END OF NOTE 08/27/19 12:29 Nursing Note by Sharmaine Washington Report called to [facility], pt will be transported via ambulance services Initialized on 08/27/19 12:29 - END OF NOTE 08/27/19 09:52 Case Management Note by Grace Dejesus DISCHARGE ORDERS RECEIVED, FAXED COPY OF [facility] PAPERWORK TO [facility]. PLAN FOR PT TO TRANSITION TO [facility] TODAY FOR SKILLED REHAB STAY PRIOR TO RETURN HOME WITH DAUGHTER. Initialized on 08/27/19 09:52 - END OF NOTE - Vitals & Intake/Output Vital Signs: Vital Signs Temperature 98.1 F 08/27/19 11:37 Pulse Rate 73 08/27/19 11:37 Respiratory Rate 12 08/27/19 11:37 Blood Pressure 120/58 08/27/19 11:37 O2 Sat by Pulse Oximetry 96 08/27/19 11:37 Intake & Output: Intake & Output 08/25/19 08/26/19 08/27/19 08/28/19 11:59 11:59 11:59 11:59 Intake Total 3354 3072 3617 Output Total 2850 1500 3150 Balance 504 1572 467 Weight 78.6 kg 78.6 kg 78.6 kg - Lab Result Diagrams: 08/25/19 22:00 08/25/19 08:24 Lab Results-Last 24 Hrs: Accuchecks Date 08/27/19 Date 08/27/19 Date 08/26/19 Time 12:30 Time 08:19 Time 16:55 Accucheck Value: 147 Accucheck Value: 106 Accucheck Value: 139 Accucheck Value: 105 Micro Results-Entire Visit: Microbiology 08/25/19 05:22 Urine Culture - Final Clean Catch Midstream Enterococcus Faecalis Accuchecks Date 08/27/19 Date 08/27/19 Date 08/26/19 Time 12:30 Time 08:19 Time 16:55 Accucheck Value: 147 Accucheck Value: 106 Accucheck Value: 139 Accucheck Value: 105 Discharge Exam General Appearance: no apparent distress, alert Neurologic Exam: alert, oriented x 3, cooperative, normal mood/affect, nml cerebellar function, sensation nml, No motor deficits Eye Exam: PERRL, EOMI, eyes nml inspection Ears, Nose, Throat Exam: normal ENT inspection, pharynx normal, moist mucous membranes Neck Exam: normal inspection, non-tender, supple, full range of motion Respiratory Exam: normal breath sounds, lungs clear, No respiratory distress Cardiovascular Exam: regular rate/rhythm, normal heart sounds Gastrointestinal/Abdomen Exam: soft, No tenderness, No mass Male Genitalia Exam: deferred Rectal Exam: deferred Back Exam: normal inspection, normal range of motion, No CVA tenderness, No vertebral tenderness Extremity Exam: normal inspection, normal range of motion Skin Exam: normal color, warm, dry Final Diagnosis/Problem List - Final Discharge Diagnosis/Problem (1) Pyelonephritis Current Visit: Yes Status: Resolved Code(s): N12 - TUBULO-INTERSTITIAL NEPHRITIS, NOT SPCF ACUTE OR CHRONIC (2) Benign prostatic hyperplasia Current Visit: Yes Status: Acute Code(s): N40.0 - BENIGN PROSTATIC HYPERPLASIA WITHOUT LOWER URINRY TRACT SYMP (3) Dizziness Current Visit: No Status: Acute Code(s): R42 - DIZZINESS AND GIDDINESS (4) Nausea vomiting and diarrhea Current Visit: Yes Status: Resolved Code(s): R11.2 - NAUSEA WITH VOMITING, UNSPECIFIED; R19.7 - DIARRHEA, UNSPECIFIED (5) CHF (congestive heart failure), NYHA class IV Current Visit: Yes Status: Acute Code(s): I50.9 - HEART FAILURE, UNSPECIFIED (6) HTN (hypertension) Current Visit: Yes Status: Acute Code(s): I10 - ESSENTIAL (PRIMARY) HYPERTENSION (7) COPD (chronic obstructive pulmonary disease) Current Visit: Yes Status: Acute - Discharge Discharge Date: 08/27/19 Disposition: [place] TO [facility] Condition: Stable Prescriptions: New Ciprofloxacin HCl [Cipro] 500 mg PO BID #20 tablet Continue Tamsulosin HCl 0.4 mg [Flomax 0.4 MG] 0.4 mg PO HS Allopurinol 100 mg [Zyloprim 100 mg] 100 mg PO DAILY Losartan Potassium 50 mg [Cozaar 50 MG] 50 mg PO DAILY Atenolol 50 mg [Tenormin 50 mg] 50 mg PO BID Amlodipine Besylate 5 mg [Norvasc 5 mg] 5 mg PO BID Sucralfate 1 gm [Carafate 1 GM] 1 gm PO BID Ranitidine HCl 150 mg PO BID Pravastatin Sodium 20 mg PO DAILY Pantoprazole Sodium 40 mg PO DAILY Glimepiride 1 mg PO DAILY Ondansetron ODT 4 MG [Zofran Odt 4 mg] 4 mg PO Q8H PRN PRN PRN Reason: Vomiting Magnesium Oxide [Magnesium] 400 mg PO DAILY Metoclopramide HCl 5 mg PO TID Potassium Chloride [Klor-Con M10] 20 meq PO BID hydroCHLOROthiazide [Hydrochlorothiazide] 12.5 mg PO DAILY clonazePAM [Clonazepam] 0.5 mg PO BID Benzonatate 100 mg PO TID Discontinued Apixaban [Eliquis] 5 mg PO BID Instructions: Upper GI Endoscopy (DC) Additional Instructions: JENI TAMEZ DISCHARGE ORDERS: PT/OT EVAL AND TREAT REGULAR DIET ACCU CHECK AC/HS SEE ATTACHED MED LIST FOR CURRENT MED ORDERS Follow up with: YONIS JORGE [COURTESY STAFF] - 09/07/19 9:30 am () CHANDANA DUNNE MD [Primary Care Provider] - 1 Week Forms: Transfer Record [facility]sp
== END 2019-08-27 13:15 | DRG 690 ==
LOC: MED SURG 14:54 → OBSVTOIN 14:54
PROVIDERS: ADMIT General Practice; ATTEND General Practice
PROC: 0DB48ZX Excision of Esophagogastric Junction, Via Natural or Artificial Opening Endoscopic, Diagnostic (ICD-10-PCS; principal; 2019-08-26)
DX: N12 Tubulo-interstitial nephritis, not specified as acute or chronic (principal); K92.0 Hematemesis; K29.70 Gastritis, unspecified, without bleeding; I11.0 Hypertensive heart disease with heart failure; M10.9 Gout, unspecified; E11.65 Type 2 diabetes mellitus with hyperglycemia; K21.0 Gastro-esophageal reflux disease with esophagitis; Z85.46 Personal history of malignant neoplasm of prostate; N40.0 Benign prostatic hyperplasia without lower urinary tract symptoms; R42 Dizziness and giddiness; J44.9 Chronic obstructive pulmonary disease, unspecified; Z79.01 Long term (current) use of anticoagulants; Z79.899 Other long term (current) drug therapy; R19.7 Diarrhea, unspecified
CPT/HCPCS: 36415; 71045; 80048; 80053; 81001; 82271; 82962; 85014; 85018; 85027; 87077; 87081; 87086; 87186; 99100; J0696; J2704; A9270-GY

== ENCOUNTER 2020-02-28 17:39 | Observation (INO) | payer MEDICARE ==
--- NOTE | 2020-02-28 18:10 | ERPHSYRPT ---
- History of Present Illness Time Seen by Provider: 02/28/20 18:02 Source: patient, other (Daughter) Exam Limitations: other (Poor historian) Patient Subjective Stated Complaint: pt here for a syncope episode today while bending over, he had n/v last night which is frequent for him. Triage Nursing Assessment: pt alert, facemask on, resp easy, skin w/d/p. 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 sensation normal to fingers. able to help get undress, Physician History: 89 yo wm w syncopal episode while putting on socks per daughter. Pt fell back in chair and was out seconds to 1-2 minutes. Daught states that pt had N/V last PM and urine was pink. He denies hematemesis/diarrhea/melena/hematochezia/dysuria/focal weakness/chest pain/dyspnea. Daughter states that he has had a cough for 2-3 days. Witnessed: by family Prior Episodes: single episode today Timing/Duration: today Precipitating Factors: none Context: sitting (Leaned forward to put on socks) Loss of Consciousness: brief (seconds) Charcter of event(s): collapsed Allergies/Adverse Reactions: aspirin Adverse Reaction (Verified 08/19/19 18:43) Home Medications: Allopurinol 100 mg [Zyloprim 100 mg] 100 mg PO DAILY 08/11/19 [History] Amlodipine Besylate 5 mg [Norvasc 5 mg] 5 mg PO BID 08/11/19 [History] Glimepiride 1 mg PO DAILY 08/11/19 [History] Losartan Potassium 50 mg [Cozaar 50 MG] 50 mg PO DAILY 08/11/19 [History] Pantoprazole Sodium 40 mg PO DAILY 08/11/19 [History] Pravastatin Sodium 20 mg PO DAILY 08/11/19 [History] Sucralfate 1 gm [Carafate 1 GM] 1 gm PO BID 08/11/19 [History] Tamsulosin HCl 0.4 mg [Flomax 0.4 MG] 0.4 mg PO HS 08/11/19 [History] Magnesium Oxide [Magnesium] 400 mg PO DAILY 08/19/19 [History] Metoclopramide HCl 5 mg PO TID 08/19/19 [History] Potassium Chloride [Klor-Con M10] 20 meq PO BID 08/19/19 [History] clonazePAM [Clonazepam] 0.5 mg PO BID 08/19/19 [History] hydroCHLOROthiazide [Hydrochlorothiazide] 12.5 mg PO DAILY 08/19/19 [History] Gabapentin 100 cap PO BID 02/28/20 [History] Metoprolol Tartrate 100 mg PO BID 02/28/20 [History] Hx Tetanus, Diphtheria Vaccination/Date Given: No Hx Influenza Vaccination/Date Given: No Hx Pneumococcal Vaccination/Date Given: No Immunizations Up to Date: Yes Travel Risk - International Travel Have you traveled outside of the country in past 3 weeks: No - Coronavirus Screening Are you exhibiting any of the following symptoms?: Yes Symptoms: Vomiting/Diarrhea Close contact with a COVID-19 positive Pt in past 14-21 Days: No - Past Medical History Pertinent Past Medical History: Yes Neurological History: TIA ENT History: No Pertinent History Cardiac History: Arrhythmia, High Cholesterol, Hypertension Respiratory History: Bronchitis Endocrine Medical History: Diabetes Type II Musculoskeletal History: Arthritis GI Medical History: GERD History: No Pertinent History Psycho-Social History: Anxiety Male Reproductive Disorders: Prostate Cancer Other Medical History: gout, 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 - Past Surgical History Past Surgical History: Yes Neuro Surgical History: No Pertinent History Cardiac: No Pertinent History Respiratory: No Pertinent History Gastrointestinal: Hemorrhoidectomy Genitourinary: No Pertinent History Musculoskeletal: Orthopedic Surgery Male Surgical History: No Pertinent History - Social History Smoking Status: Former smoker Exposure to second hand smoke: No Drug Use: none Patient Lives Alone: No Significant Family History: no pertinent family hx - Review of Systems Constitutional: Lethargy, Weakness, No Fever, No Chills, No Fatigue, No Malaise, No Night Sweats, No Weight Loss Eyes: No Symptoms Ears, Nose, & Throat: No Symptoms Respiratory: Cough Cardiac: No Symptoms Abdominal/Gastrointestinal: Nausea, Vomiting, No Abdominal Pain, No Diarrhea, No Hematemesis, No Hematochezia, No Melena Genitourinary Symptoms: No Symptoms Musculoskeletal: No Symptoms Skin: No Symptoms Neurological: No Focal Weakness, No Gait Changes, No Headache, No Irritability, No Lethargy, No Paralysis, No Parasthesia, No Seizure, No Sensory Changes, No Speech Changes, No Tics, No Tremors Endocrine: No Symptoms Hematologic/Lymphatic: No Symptoms Immunological/Allergic: No Symptoms Physical Exam - Nursing Vital Signs Nursing Vital Signs: Initial Vital Signs Pulse Rate 82 02/28/20 17:56 Blood Pressure 140/73 02/28/20 17:56 O2 Sat by Pulse Oximetry 97 02/28/20 17:56 Pain Scale Pain Intensity 0 - [place] Coma Scale Best Eye Response ([place]field): (4) open spontaneously Best Verbal Response (Daljit): (5) oriented Best Motor Response ([place]): (6) obeys commands Daljit Total: 15 - Physical Exam General Appearance: no apparent distress Eye Exam: bilateral eye: normal inspection, PERRL, EOMI Ears, Nose, Throat Exam: normal ENT inspection, TMs normal, pharynx normal Neck Exam: normal inspection, non-tender, No meningismus, No mass, No Brudzinski, No Kernig's Respiratory: airway intact, crackles/rales (Rales R base) Cardiovascular: regular rate/rhythm, normal heart sounds Gastrointestinal: soft, normal bowel sounds, No tenderness Back Exam: normal inspection, normal range of motion, No CVA tenderness Extremity Exam: normal inspection, normal range of motion 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, oriented x 3, 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 Exam: normal hearing, normal speech, PERRL Coordination/Gait: normal finger to nose Motor/Sensory: no motor deficit, no sensory deficit, no pronator drift, negative Babinski's sign DTR: bicep (R): 2+, bicep (L): 2+, knee (R): 2+, knee (L): 2+ Skin Exam: normal color, warm, dry, No rash SpO2 Interpretation: normal SpO2: 97 O2 Delivery: Room Air - Course Nursing assessment & vital signs reviewed: Yes EKG Interpreted by Me: RATE (NSR/R85/PVC's/QTc-QT wnl) - CT Exams Chest CT Interpretation: Tele-radiologist Report (Nothing acute) Head CT Interpretation: Tele-radiologist Report (Nothing acute) Ordered Tests: Active Orders 24 hr Category Date Time Status Bedrest ROUTINE Activity 02/28/20 19:39 Active Accucheck Q6H Care 02/28/20 19:37 Active Call Admit Doctor for Orders ON ADMISSION Care 02/28/20 19:38 Active Code Status Order ROUTINE Care 02/28/20 19:37 Active Fall Protocol ROUTINE Care 02/28/20 19:39 Active IV Care Q6H Care 02/28/20 19:[address] in Observation ROUTINE Care 02/28/20 19:37 Active Vital Signs Q6H Care 02/28/20 19:37 Active Heart-Healthy Diet Diet 02/28/20 Breakfast Active CHEST WITHOUT CONTRAST [CT] Stat Exams 02/28/20 18:21 Taken HEAD WITHOUT CONTRAST [CT] Stat Exams 02/28/20 18:19 Taken BLOOD CULTURE Stat Lab 02/28/20 19:45 Received CBC W DIFF AM.LAB Lab 02/29/20 04:00 Ordered CBC W DIFF Stat Lab 02/28/20 18:09 Completed CMP AM.LAB Lab 02/29/20 04:00 Ordered CMP Stat Lab 02/28/20 18:09 Completed CULTURE,URINE Stat Lab 02/28/20 19:10 Received TROPONIN Q3H Lab 02/28/20 18:15 Completed TROPONIN Q3H Lab 02/28/20 21:15 Ordered UA W/RFX UR CULTURE Stat Lab 02/28/20 19:10 Completed Pulse Oximetry CONTINUOUS RT 02/28/20 19:40 Active Transfer Order Routine Transfer 02/28/20 Ordered Medication Summary Generic Name Dose Route Start Last Admin Trade Name Freq PRN Reason Stop Dose Admin Enoxaparin Sodium 40 mg 02/29/20 10:00 Enoxaparin Sodium SQ 03/30/20 09:59 DAILY DRAKE Ceftriaxone Sodium/Dextrose 1 g in 50 mls @ 100 mls/hr 02/28/20 19:36 02/28/20 19:45 Rocephin 1 Gm-D5w 50 Ml Bag IV 02/28/20 20:05 100 ml/hr STAT STA 100 mls/hr Administration Sodium Chloride 1,000 mls @ 70 mls/hr 02/28/20 19:45 Sodium Chloride 0.9% 1000 Ml IV 03/29/20 19:44 .[id number] DRAKE Ceftriaxone Sodium/Dextrose 1 g in 50 mls @ 100 mls/hr 02/29/20 10:00 Rocephin 1 Gm-D5w 50 Ml Bag IV 03/30/20 09:59 Q24H10 DRAKE Ondansetron HCl 4 mg 02/28/20 19:37 Zofran 4 Mg/2 Ml Vial IV 03/29/20 19:36 Q6H PRN PRN NAUSEA/VOMITING Pantoprazole Sodium 40 mg 02/29/20 10:00 Protonix 40 Mg Iv IV 03/30/20 09:59 Q24H10 DRAKE Discontinued Medications Generic Name Dose Route Start Last Admin Trade Name Freq PRN Reason Stop Dose Admin Ceftriaxone Sodium/Dextrose Confirm 02/28/20 19:38 Rocephin 1 Gm-D5w 50 Ml Bag Administered 02/28/20 19:39 Dose 1 g in 50 mls @ IV .[facility] Lab/Rad Data: Laboratory Result Diagrams 02/28/20 18:09 02/28/20 18:09 Laboratory Results 02/28/20 02/28/20 02/28/20 Range/Units 19:10 18:15 18:09 WBC (4.0-10.5) K/mm3 RBC (4.1-5.6) M/mm3 Hgb (12.5-18.0) gm/dl Hct (42-50) % MCV (78-100) fl MCH (26-32) pg MCHC (32-36) g/dl RDW (11.5-14.0) % Plt Count (150-450) K/mm3 MPV (7.5-11.0) fl Gran % (36.0-66.0) % Eos # (Auto) (0-0.5) Absolute Lymphs (auto) (1.0-4.6) Absolute Monos (auto) (0.0-1.3) Lymphocytes % (24.0-44.0) % Monocytes % (0.0-12.0) % Eosinophils % (0.00-5.0) % Basophils % (0.0-0.4) % Absolute Granulocytes (1.4-6.9) Basophils # (0-0.4) Sodium 138 (137-145) mmol/L Potassium 3.8 (3.5-5.1) mmol/L Chloride 103 (98-107) mmol/L Carbon Dioxide 24 (22-30) mmol/L Anion Gap 15.7 H (5-15) MEQ/L BUN 17 (9-20) mg/dL Creatinine 1.33 H (0.66-1.25) mg/dL Estimated GFR 53.9 ML/MIN Glucose 163 H (74-106) mg/dL Calcium 9.1 (8.4-10.2) mg/dL Total Bilirubin 0.70 (0.2-1.3) mg/dL AST 20 (17-59) U/L ALT 12 (0-50) U/L Alkaline Phosphatase 104 (38-126) U/L Troponin I < 0.012 (0.000-0.034) ng/mL Serum Total Protein 7.3 (6.3-8.2) g/dL Albumin 4.1 (3.5-5.0) g/dL Urine Color YELLOW (YELLOW) Urine Appearance CLEAR (CLEAR) Urine pH 7.0 (5-6) Ur Specific [place] 1.010 (1.005-1.025) Urine Protein NEGATIVE (Negative) Urine Ketones NEGATIVE (NEGATIVE) Urine Blood NEGATIVE (0-5) Srinivasan/ul Urine Nitrite NEGATIVE (NEGATIVE) Urine Bilirubin NEGATIVE (NEGATIVE) Urine Urobilinogen NEGATIVE (0-1) mg/dL Ur Leukocyte Esterase LARGE (NEGATIVE) Urine WBC (Auto) 51-100 (0-5) /HPF Urine RBC (Auto) 0-2 (0-2) /HPF U Epithel Cells (Auto) NONE (FEW) /HPF Urine Bacteria (Auto) NONE SEEN (NEGATIVE) /HPF Urine Culture Reflexed YES (NO) Urine Glucose NEGATIVE (NEGATIVE) mg/dL 02/28/20 Range/Units 18:09 WBC 3.8 L (4.0-10.5) K/mm3 RBC 4.46 (4.1-5.6) M/mm3 Hgb 11.6 L (12.5-18.0) gm/dl Hct 36.6 L (42-50) % MCV 82.1 (78-100) fl MCH 26.0 (26-32) pg MCHC 31.7 L (32-36) g/dl RDW 16.7 H (11.5-14.0) % Plt Count 152 (150-450) K/mm3 MPV 10.2 (7.5-11.0) fl Gran % 39.3 (36.0-66.0) % Eos # (Auto) 0.13 (0-0.5) Absolute Lymphs (auto) 1.38 (1.0-4.6) Absolute Monos (auto) 0.74 (0.0-1.3) Lymphocytes % 36.6 (24.0-44.0) % Monocytes % 19.6 H (0.0-12.0) % Eosinophils % 3.4 (0.00-5.0) % Basophils % 1.1 (0.0-0.4) % Absolute Granulocytes 1.48 (1.4-6.9) Basophils # 0.04 (0-0.4) Sodium (137-145) mmol/L Potassium (3.5-5.1) mmol/L Chloride (98-107) mmol/L Carbon Dioxide (22-30) mmol/L Anion Gap (5-15) MEQ/L BUN (9-20) mg/dL Creatinine (0.66-1.25) mg/dL Estimated GFR ML/MIN Glucose (74-106) mg/dL Calcium (8.4-10.2) mg/dL Total Bilirubin (0.2-1.3) mg/dL AST (17-59) U/L ALT (0-50) U/L Alkaline Phosphatase (38-126) U/L Troponin I (0.000-0.034) ng/mL Serum Total Protein (6.3-8.2) g/dL Albumin (3.5-5.0) g/dL Urine Color (YELLOW) Urine Appearance (CLEAR) Urine pH (5-6) Ur Specific [place] (1.005-1.025) Urine Protein (Negative) Urine Ketones (NEGATIVE) Urine Blood (0-5) Srinivasan/ul Urine Nitrite (NEGATIVE) Urine Bilirubin (NEGATIVE) Urine Urobilinogen (0-1) mg/dL Ur Leukocyte Esterase (NEGATIVE) Urine WBC (Auto) (0-5) /HPF Urine RBC (Auto) (0-2) /HPF U Epithel Cells (Auto) (FEW) /HPF Urine Bacteria (Auto) (NEGATIVE) /HPF Urine Culture Reflexed (NO) Urine Glucose (NEGATIVE) mg/dL - Progress Progress: unchanged Progress Note: 02/28/20 19:[address] Rodriguez Discussed with : Katty Will see patient in: hospital (observation) Counseled pt/family regarding: lab results, rad results - Departure Departure Disposition: Observation Clinical Impression: UTI (urinary tract infection), Syncope and collapse Condition: Stable Critical Care Time: No Referrals: CHANDANA DUNNE MD [Primary Care Provider] -
[2020-02-28 18:13] LABS: Absolute Neutrophil Ct (ANC) 1.48 (1.4-6.9); BASOPHIL % 1.1 % (0.0-0.4); Basophil (Absolute #) 0.04 (0-0.4); Eosinophil % 3.4 % (0.00-5.0); Eosinophil (Absolute #) 0.13 (0-0.5); Hematocrit 36.6 % (42-50); Hemoglobin 11.6 gm/dl (12.5-18.0); Lymphocyte (Absolute #) 1.38 (1.0-4.6); Lymphocytes % 36.6 % (24.0-44.0); Mean Cell Volume 82.1 fl (78-100); Mean Corpuscular Hgb Concent. 31.7 g/dl (32-36); Mean Platelet Volume 10.2 fl (7.5-11.0); Monocyte (Absolute #) 0.74 (0.0-1.3); Monocytes % 19.6 % (0.0-12.0); Neutrophil % 39.3 % (36.0-66.0); Platelet Count 152 K/mm3 (150-450); Red Blood Count 4.46 M/mm3 (4.1-5.6); Red Cell Distribution Width 16.7 % (11.5-14.0); White Blood Count 3.8 K/mm3 (4.0-10.5)
[2020-02-28 18:25] LABS: ALBUMIN 4.1 g/dL (3.5-5.0); ANION GAP 15.7 MEQ/L (5-15); BILIRUBIN,TOTAL 0.7 mg/dL (0.2-1.3); Calcium 9.1 mg/dL (8.4-10.2); Creatinine 1 1.33 mg/dL (0.66-1.25); Potassium 3.8 mmol/L (3.5-5.1); Total Protein 7.3 g/dL (6.3-8.2)
[2020-02-28 19:18] LABS: Appearance CLEAR (CLEAR); Bilirubin NEGATIVE (NEGATIVE); Blood NEGATIVE Ery/ul (0-5); Glucose NEGATIVE (NEGATIVE); Ketones NEGATIVE (NEGATIVE); Leukocyte Esterase LARGE (NEGATIVE); Nitrite NEGATIVE (NEGATIVE); Protein,Urine Dip NEGATIVE (Negative); RBC 0-2 /HPF (0-2); Urobilinogen NEGATIVE mg/dL (0-1); WBC 51-100 /HPF (0-5)
[2020-02-28 19:19] LABS: Bacteria NONE SEEN /HPF (NEGATIVE)
[2020-02-28] MEDS ORDERED: ROCEPHIN 1 Gm-D5w 50 ml Bag** 1 G/50 ML IVPB IV STA (19:36)
[2020-02-28] MEDS ORDERED: Zofran 4 MG/2 ML VIAL IV PRN (19:37)
[2020-02-28] MEDS ORDERED: ROCEPHIN 1 Gm-D5w 50 ml Bag** 1 G/50 ML IVPB IV ONE (19:38)
[2020-02-28] MEDS: Sodium Chloride 0.9% 1000 ML 1,000 ML IV SCH (21:30)
[2020-02-29 04:38] LABS: Absolute Neutrophil Ct (ANC) 1.48 (1.4-6.9); BASOPHIL % 1.2 % (0.0-0.4); Basophil (Absolute #) 0.05 (0-0.4); Eosinophil % 3.9 % (0.00-5.0); Eosinophil (Absolute #) 0.16 (0-0.5); Hematocrit 32.9 % (42-50); Hemoglobin 10.4 gm/dl (12.5-18.0); Lymphocytes % 38.6 % (24.0-44.0); Mean Cell Volume 82.7 fl (78-100); Mean Corpuscular Hemoglobin 26.1 pg (26-32); Mean Corpuscular Hgb Concent. 31.6 g/dl (32-36); Mean Platelet Volume 9.6 fl (7.5-11.0); Monocyte (Absolute #) 0.85 (0.0-1.3); Monocytes % 20.5 % (0.0-12.0); Neutrophil % 35.8 % (36.0-66.0); Platelet Count 134 K/mm3 (150-450); Red Blood Count 3.98 M/mm3 (4.1-5.6); Red Cell Distribution Width 16.5 % (11.5-14.0); White Blood Count 4.1 K/mm3 (4.0-10.5)
[2020-02-29 05:01] LABS: ALBUMIN 3.6 g/dL (3.5-5.0); ANION GAP 13.3 MEQ/L (5-15); BILIRUBIN,TOTAL 0.4 mg/dL (0.2-1.3); Calcium 8.5 mg/dL (8.4-10.2); Creatinine 1 1.41 mg/dL (0.66-1.25); Potassium 3.5 mmol/L (3.5-5.1); Total Protein 6.4 g/dL (6.3-8.2)
--- NOTE | 2020-02-29 08:38 | XRAY ---
Indication: Cough and dizziness. Multiple contiguous axial images obtained through the chest without contrast as ordered. Comparison: August 12, 2019. Lungs again hyperinflated with mild bibasilar dependent atelectasis, minimal bibasilar fibrosis/scarring, and a few tiny calcified granulomas. No suspicious pulmonary mass, infiltrate, consolidation, or effusion. Heart is not enlarged. Aorta remains mildly arteriosclerotic without aneurysm. Stable small bilateral hilar and subcarinal calcified nodes. No pathologic mediastinal lymphadenopathy. Stable small hiatal hernia. Bony thorax again demonstrates osteopenia and flowing osteophytes throughout the spine. Limited upper abdomen is unremarkable. Impression: Stable CT chest without contrast exam again demonstrating atelectasis, fibrosis/scarring, small hiatal hernia, chronic bony findings, and evidence for old granulomatous disease. No new or acute findings. Comment: Preliminary interpretation was made by [facility]. No critical discrepancy.
--- NOTE | 2020-02-29 08:39 | XRAY ---
Indication: Status post fall. Loss of consciousness. Dizziness. Multiple contiguous axial images obtained through the head without contrast. Comparison: August 19, 2019. Stable age-appropriate global atrophy and minimal periventricular degenerative micro-ischemia bilaterally. No acute intracranial hemorrhage, abnormal extra-axial fluid collection, or mass effect. Fourth ventricle is midline without hydrocephalus. Bony calvarium intact. Stable small right frontal calcified meningioma. Visualized paranasal sinuses and mastoid air cells are clear. Impression: Stable nonacute senile brain with again incidental right frontal calcified meningioma. Comment: Preliminary interpretation was made by [facility]. No critical discrepancy.
[2020-02-29] MEDS ORDERED: PROTONIX 40 MG IV IV SCH (10:00)
[2020-02-29] MEDS: ENOXAPARIN SODIUM SQ SCH (10:51)
[2020-02-29] MEDS: Sodium Chloride 0.9% 1000 ML 1,000 ML IV SCH (11:48)
[2020-02-29] MEDS: Klor Con 10 MEQ PO SCH ×2 (13:41→22:09)
[2020-02-29] MEDS: Neurontin 100 MG PO SCH ×2 (13:41→22:09)
[2020-02-29] MEDS: NORVASC 5 MG PO SCH (13:42)
[2020-02-29] MEDS: ZYLOPRIM 100 MG PO SCH (13:42)
[2020-02-29] MEDS: Amaryl 2 MG PO SCH (13:42)
[2020-02-29] MEDS: Flomax 0.4 MG PO SCH (13:43)
[2020-02-29] MEDS: hydroDIURIL 25 MG PO SCH (13:43)
[2020-02-29] MEDS: MAG-OX 400 PO SCH (13:43)
[2020-02-29] MEDS: Lopressor 50 MG PO SCH ×2 (13:44→22:09)
[2020-02-29] MEDS: ZOCOR 20MG PO SCH (13:44)
[2020-02-29] MEDS: Cozaar 50 MG PO SCH (13:44)
[2020-02-29] MEDS: Klonopin 0.5 MG PO SCH ×2 (13:44→22:08)
[2020-02-29] MEDS ORDERED: METOCLOPRAMIDE HCL 5 MG PO SCH (15:00)
[2020-02-29] MEDS ORDERED: LASIX 20 MG PO SCH (15:00)
--- NOTE | 2020-02-29 17:22 | PCM.HP ---
History of Present Illness - Chief Complaint Chief Complaint: syncope episode today History of Present Illness: is a 89 year old male. w syncopal episode while putting on socks per daughter. Pt fell back in chair and was out seconds to 1-2 minutes. Daught states that pt had N/V last PM and urine was pink. He denies hematemesis/diarrhea/melena/hematochezia/dysuria/focal weakness/chest pain/dyspnea. Daughter states that he has had a cough for 2-3 days. Witnessed: by family Prior Episodes: single episode today Timing/Duration: today Precipitating Factors: none Context: sitting (Leaned forward to put on socks) Loss of Consciousness: brief (seconds) Charcter of event(s): collapsed - Review of Systems Constitutional: Fatigue, Lethargy, No Fever, No Chills Eyes: No Symptoms Ears, Nose, & Throat: No Symptoms Respiratory: No Cough, No Short Of Breath Cardiac: No Chest Pain, No Edema, No Syncope Abdominal/Gastrointestinal: No Abdominal Pain, No Nausea, No Vomiting, No Diarrhea Genitourinary Symptoms: No Dysuria Musculoskeletal: No Back Pain, No Neck Pain Skin: No Rash Neurological: Dizziness, No Focal Weakness, No Sensory Changes Psychological: No Symptoms Endocrine: No Symptoms Hematologic/Lymphatic: No Symptoms Immunological/Allergic: No Symptoms Medications & Allergies Home Medications: Home Medication List Allopurinol 100 mg [Zyloprim 100 mg] 100 mg PO DAILY 08/11/19 [History Confirmed 02/28/20] Amlodipine Besylate 5 mg [Norvasc 5 mg] 5 mg PO DAILY 08/11/19 [History Confirmed 02/28/20] Glimepiride 1 mg PO DAILY 08/11/19 [History Confirmed 02/28/20] Losartan Potassium 50 mg [Cozaar 50 MG] 50 mg PO DAILY 08/11/19 [History Confirmed 02/28/20] Pantoprazole Sodium 40 mg PO DAILY 08/11/19 [History Confirmed 02/28/20] Pravastatin Sodium 20 mg PO DAILY 08/11/19 [History Confirmed 02/28/20] Sucralfate 1 gm [Carafate 1 GM] 1 gm PO BID 08/11/19 [History Confirmed 0 02/28/20] Tamsulosin HCl 0.4 mg [Flomax 0.4 MG] 0.4 mg PO DAILY 08/11/19 [History Confirmed 02/28/20] Magnesium Oxide [Magnesium] 400 mg PO DAILY 08/19/19 [History Confirmed 02/28/20] Metoclopramide HCl 5 mg PO TID 08/19/19 [History Confirmed 02/28/20] Potassium Chloride [Klor-Con M10] 20 meq PO BID 08/19/19 [History Confirmed 02/28/20] clonazePAM [Clonazepam] 0.5 mg PO BID 08/19/19 [History Confirmed 02/28/20] hydroCHLOROthiazide [Hydrochlorothiazide] 12.5 mg PO DAILY 08/19/19 [History Confirmed 02/28/20] Gabapentin 100 cap PO BID 02/28/20 [History Confirmed 02/28/20] Metoprolol Tartrate 100 mg PO BID 02/28/20 [History Confirmed 02/28/20] Furosemide 20 mg [Lasix 20 mg] 20 mg PO DAILY 02/29/20 [History Confirmed 02/29/20] Allergies/Adverse Reactions: Allergies Allergy/AdvReac Type Severity Reaction Status Date / Time aspirin AdvReac Verified 08/19/19 18:43 - Past Medical History Past Medical History: Yes Neurological History: TIA ENT History: No Pertinent History Cardiac History: Arrhythmia, High Cholesterol, Hypertension Respiratory History: Bronchitis Endocrine Medical History: Diabetes Type II Musculoskelatal History: Arthritis GI Medical History: GERD History: No Pertinent History Pyscho-Social History: Anxiety Male Reproductive Disorders: Prostate Cancer Comment: gout, 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 - Past Surgical History Past Surgical History: Yes Neuro Surgical History: No Pertinent History Cardiac History: No Pertinent History Respiratory Surgery: No Pertinent History GI Surgical History: Hemorrhoidectomy Genitourinary Surgical Hx: No Pertinent History Musculskeletal Surgical Hx: Orthopedic Surgery Male Surgical History: No Pertinent History Other Surgical History: LT ARM - Social History Smoking Status: Never smoker Exposure to second hand smoke: Yes Alcohol: None Drug Use: none Significant Family History: no pertinent family hx - Physical Exam Vital Signs: Vital Signs - 24 hr Temp Pulse Resp BP Pulse Ox 02/29/20 15:59 98.2 F 78 18 113/58 97 07/27/20 10:59 98.0 F 80 10 L 138/72 93 L 02/29/20 07:18 98.2 F 72 11 L 138/65 94 L 02/29/20 06:45 95 02/29/20 04:00 98.1 F 73 16 132/70 90 L 02/29/20 02:00 94 L 02/28/20 23:45 97.7 F 72 20 118/61 94 L 02/28/20 21:09 94 L 02/28/20 20:18 98.7 F 69 16 124/70 96 02/28/20 19:48 97 02/28/20 17:56 82 140/73 97 General Appearance: no apparent distress, alert Neurologic Exam: alert, oriented x 3, cooperative, normal mood/affect, nml cerebellar function, nml station & gait, sensation nml, No motor deficits Eye Exam: PERRL/EOMI, eyes nml inspection Ears, Nose, Throat Exam: normal ENT inspection, TMs normal, pharynx normal, moist mucous membranes Neck Exam: normal inspection, non-tender, supple, full range of motion Respiratory Exam: normal breath sounds, lungs clear, No respiratory distress Cardiovascular Exam: regular rate/rhythm, normal heart sounds, normal peripheral pulses Gastrointestinal/Abdomen Exam: soft, normal bowel sounds, No tenderness, No mass Back Exam: normal inspection, normal range of motion, No CVA tenderness, No vertebral tenderness Extremity Exam: normal inspection, normal range of motion, pelvis stable Skin Exam: normal color, warm, dry, No rash Lymphatic Exam: No adenopathy Results - Labs Lab/Micro Results: Accuchecks Date 02/29/20 Date 02/29/20 Time 16:30 Time 11:30 Accucheck Value: 124 Accucheck Value: 108 Accucheck Value: 102 Lab Results-Last 24 Hours 02/28/20 02/28/20 02/28/20 Range/Units 18:09 18:09 18:15 WBC 3.8 L (4.0-10.5) K/mm3 RBC 4.46 (4.1-5.6) M/mm3 Hgb 11.6 L (12.5-18.0) gm/dl Hct 36.6 L (42-50) % MCV 82.1 (78-100) fl MCH 26.0 (26-32) pg MCHC 31.7 L (32-36) g/dl RDW 16.7 H (11.5-14.0) % Plt Count 152 (150-450) K/mm3 MPV 10.2 (7.5-11.0) fl Gran % 39.3 (36.0-66.0) % Eos # (Auto) 0.13 (0-0.5) Absolute Lymphs (auto) 1.38 (1.0-4.6) Absolute Monos (auto) 0.74 (0.0-1.3) Lymphocytes % 36.6 (24.0-44.0) % Monocytes % 19.6 H (0.0-12.0) % Eosinophils % 3.4 (0.00-5.0) % Basophils % 1.1 (0.0-0.4) % Absolute Granulocytes 1.48 (1.4-6.9) Basophils # 0.04 (0-0.4) Sodium 138 (137-145) mmol/L Potassium 3.8 (3.5-5.1) mmol/L Chloride 103 (98-107) mmol/L Carbon Dioxide 24 (22-30) mmol/L Anion Gap 15.7 H (5-15) MEQ/L BUN 17 (9-20) mg/dL Creatinine 1.33 H (0.66-1.25) mg/dL Estimated GFR 53.9 ML/MIN Glucose 163 H (74-106) mg/dL Hemoglobin A1c (4.5-6.0) % Calcium 9.1 (8.4-10.2) mg/dL Total Bilirubin 0.70 (0.2-1.3) mg/dL AST 20 (17-59) U/L ALT 12 (0-50) U/L Alkaline Phosphatase 104 (38-126) U/L Troponin I < 0.012 (0.000-0.034) ng/mL Serum Total Protein 7.3 (6.3-8.2) g/dL Albumin 4.1 (3.5-5.0) g/dL Urine Color (YELLOW) Urine Appearance (CLEAR) Urine pH (5-6) Ur Specific Marion (1.005-1.025) Urine Protein (Negative) Urine Ketones (NEGATIVE) Urine Blood (0-5) Srinivasan/ul Urine Nitrite (NEGATIVE) Urine Bilirubin (NEGATIVE) Urine Urobilinogen (0-1) mg/dL Ur Leukocyte Esterase (NEGATIVE) Urine WBC (Auto) (0-5) /HPF Urine RBC (Auto) (0-2) /HPF U Epithel Cells (Auto) (FEW) /HPF Urine Bacteria (Auto) (NEGATIVE) /HPF Urine Culture Reflexed (NO) Urine Glucose (NEGATIVE) mg/dL SARS-CoV-2 (PCR) (NEGATIVE) 02/28/20 02/28/20 02/29/20 Range/Units 19:10 19:57 04:25 WBC 4.1 (4.0-10.5) K/mm3 RBC 3.98 L (4.1-5.6) M/mm3 Hgb 10.4 L (12.5-18.0) gm/dl Hct 32.9 L (42-50) % MCV 82.7 (78-100) fl MCH 26.1 (26-32) pg MCHC 31.6 L (32-36) g/dl RDW 16.5 H (11.5-14.0) % Plt Count 134 L (150-450) K/mm3 MPV 9.6 (7.5-11.0) fl Gran % 35.8 L (36.0-66.0) % Eos # (Auto) 0.16 (0-0.5) Absolute Lymphs (auto) 1.60 (1.0-4.6) Absolute Monos (auto) 0.85 (0.0-1.3) Lymphocytes % 38.6 (24.0-44.0) % Monocytes % 20.5 H (0.0-12.0) % Eosinophils % 3.9 (0.00-5.0) % Basophils % 1.2 (0.0-0.4) % Absolute Granulocytes 1.48 (1.4-6.9) Basophils # 0.05 (0-0.4) Sodium (137-145) mmol/L Potassium (3.5-5.1) mmol/L Chloride (98-107) mmol/L Carbon Dioxide (22-30) mmol/L Anion Gap (5-15) MEQ/L BUN (9-20) mg/dL Creatinine (0.66-1.25) mg/dL Estimated GFR ML/MIN Glucose (74-106) mg/dL Hemoglobin A1c (4.5-6.0) % Calcium (8.4-10.2) mg/dL Total Bilirubin (0.2-1.3) mg/dL AST (17-59) U/L ALT (0-50) U/L Alkaline Phosphatase (38-126) U/L Troponin I < 0.012 (0.000-0.034) ng/mL Serum Total Protein (6.3-8.2) g/dL Albumin (3.5-5.0) g/dL Urine Color YELLOW (YELLOW) Urine Appearance CLEAR (CLEAR) Urine pH 7.0 (5-6) Ur Specific Marion 1.010 (1.005-1.025) Urine Protein NEGATIVE (Negative) Urine Ketones NEGATIVE (NEGATIVE) Urine Blood NEGATIVE (0-5) Srinivasan/ul Urine Nitrite NEGATIVE (NEGATIVE) Urine Bilirubin NEGATIVE (NEGATIVE) Urine Urobilinogen NEGATIVE (0-1) mg/dL Ur Leukocyte Esterase LARGE (NEGATIVE) Urine WBC (Auto) 51-100 (0-5) /HPF Urine RBC (Auto) 0-2 (0-2) /HPF U Epithel Cells (Auto) NONE (FEW) /HPF Urine Bacteria (Auto) NONE SEEN (NEGATIVE) /HPF Urine Culture Reflexed YES (NO) Urine Glucose NEGATIVE (NEGATIVE) mg/dL SARS-CoV-2 (PCR) (NEGATIVE) 02/29/20 02/29/20 02/29/20 Range/Units 04:25 05:00 13:30 WBC (4.0-10.5) K/mm3 RBC (4.1-5.6) M/mm3 Hgb (12.5-18.0) gm/dl Hct (42-50) % MCV (78-100) fl MCH (26-32) pg MCHC (32-36) g/dl RDW (11.5-14.0) % Plt Count (150-450) K/mm3 MPV (7.5-11.0) fl Gran % (36.0-66.0) % Eos # (Auto) (0-0.5) Absolute Lymphs (auto) (1.0-4.6) Absolute Monos (auto) (0.0-1.3) Lymphocytes % (24.0-44.0) % Monocytes % (0.0-12.0) % Eosinophils % (0.00-5.0) % Basophils % (0.0-0.4) % Absolute Granulocytes (1.4-6.9) Basophils # (0-0.4) Sodium 139 (137-145) mmol/L Potassium 3.5 (3.5-5.1) mmol/L Chloride 105 (98-107) mmol/L Carbon Dioxide 24 (22-30) mmol/L Anion Gap 13.3 (5-15) MEQ/L BUN 16 (9-20) mg/dL Creatinine 1.41 H (0.66-1.25) mg/dL Estimated GFR 50.4 ML/MIN Glucose 110 H (74-106) mg/dL Hemoglobin A1c 6.09 H (4.5-6.0) % Calcium 8.5 (8.4-10.2) mg/dL Total Bilirubin 0.40 (0.2-1.3) mg/dL AST 14 L (17-59) U/L ALT 10 (0-50) U/L Alkaline Phosphatase 95 (38-126) U/L Troponin I (0.000-0.034) ng/mL Serum Total Protein 6.4 (6.3-8.2) g/dL Albumin 3.6 (3.5-5.0) g/dL Urine Color (YELLOW) Urine Appearance (CLEAR) Urine pH (5-6) Ur Specific Marion (1.005-1.025) Urine Protein (Negative) Urine Ketones (NEGATIVE) Urine Blood (0-5) Srinivasan/ul Urine Nitrite (NEGATIVE) Urine Bilirubin (NEGATIVE) Urine Urobilinogen (0-1) mg/dL Ur Leukocyte Esterase (NEGATIVE) Urine WBC (Auto) (0-5) /HPF Urine RBC (Auto) (0-2) /HPF U Epithel Cells (Auto) (FEW) /HPF Urine Bacteria (Auto) (NEGATIVE) /HPF Urine Culture Reflexed (NO) Urine Glucose (NEGATIVE) mg/dL SARS-CoV-2 (PCR) NEGATIVE (NEGATIVE) Accuchecks Date 02/29/20 Date 02/29/20 Time 16:30 Time 11:30 Accucheck Value: 124 Accucheck Value: 108 Accucheck Value: 102 - Radiology Impressions Radiology Exams & Impressions: Radiology Procedures Category Date Time Status CHEST WITHOUT CONTRAST [CT] Stat Exams 07/26/20 18:21 Completed HEAD WITHOUT CONTRAST [CT] Stat Exams 02/28/20 18:19 Completed Assessment/Plan (1) UTI (urinary tract infection) Current Visit: Yes Status: Acute Qualifiers: Urinary tract infection type: acute pyelonephritis Qualified Code(s): N10 - Acute pyelonephritis Assessment & Plan: Chief Complaint Diagnosis syncope, UTI Allergies Allergy/AdvReac Type Severity Reaction Status Date / Time aspirin AdvReac Verified 08/19/19 18:43 Vital Signs (Last 24 hours) Temp Pulse Resp BP Pulse Ox 02/29/20 15:59 98.2 F 78 18 113/58 97 02/29/20 10:59 98.0 F 80 10 L 138/72 93 L 02/29/20 07:18 98.2 F 72 11 L 138/65 94 L 02/29/20 06:45 95 02/29/20 04:00 98.1 F 73 16 132/70 90 L 02/29/20 02:00 94 L 02/28/20 23:45 97.7 F 72 20 118/61 94 L 02/28/20 21:09 94 L 02/28/20 20:18 98.7 F 69 16 124/70 96 02/28/20 19:48 97 02/28/20 17:56 82 140/73 97 Home Medications Medication Instructions Recorded Confirmed Last Taken Type Gabapentin 100 cap PO BID 02/28/20 02/28/20 02/28/20 History Metoprolol Tartrate 100 mg PO BID 02/28/20 02/28/20 02/28/20 History Furosemide 20 mg [Lasix 20 20 mg PO DAILY 02/29/20 02/29/20 Unknown History mg] Current Medications Generic Name Dose Route Start Last Admin Trade Name Freq PRN Reason Stop Dose Admin Allopurinol 100 mg 02/29/20 13:00 02/29/20 13:42 Zyloprim 100 Mg PO 03/30/20 12:59 100 mg DAILY DRAKE Administration Amlodipine Besylate 5 mg 02/29/20 13:00 02/29/20 13:42 Norvasc 5 Mg PO 03/30/20 12:59 5 mg DAILY DRAKE Administration Clonazepam 0.5 mg 02/29/20 13:00 02/29/20 13:44 Klonopin 0.5 Mg PO 03/30/20 12:59 0.5 mg BID DRAKE Administration Enoxaparin Sodium 40 mg 02/29/20 10:00 02/29/20 10:51 Enoxaparin Sodium SQ 03/30/20 09:59 40 mg DAILY DRAKE Administration Furosemide 20 mg 02/29/20 15:00 02/29/20 13:45 Lasix 20 Mg PO 03/30/20 14:59 20 mg 1500 DRAKE Administration Gabapentin 100 mg 02/29/20 13:00 02/29/20 13:41 Neurontin 100 Mg PO 03/30/20 12:59 100 mg BID DRAKE Administration Glimepiride 1 mg 02/29/20 13:00 02/29/20 13:42 Amaryl 2 Mg PO 03/30/20 12:59 1 mg BREAKFAST DRAKE Administration Hydrochlorothiazide 12.5 mg 02/29/20 13:00 02/29/20 13:43 Hydrodiuril 25 Mg PO 03/30/20 12:59 12.5 mg DAILY DRAKE Administration Sodium Chloride 1,000 mls @ 70 mls/hr 02/28/20 19:45 02/29/20 11:48 Sodium Chloride 0.9% 1000 Ml IV 03/29/20 19:44 70 mls/hr .[id number] DRAKE Administration Ceftriaxone Sodium/Dextrose 1 g in 50 mls @ 100 mls/hr 02/29/20 22:00 Rocephin 1 Gm-D5w 50 Ml Bag IV 03/30/20 21:59 Q24H22 DRAKE Losartan Potassium 50 mg 02/29/20 13:00 02/29/20 13:44 Cozaar 50 Mg PO 03/30/20 12:59 50 mg DAILY DRAKE Administration Magnesium Oxide 400 mg 02/29/20 13:00 02/29/20 13:43 Mag-Ox 400 PO 03/30/20 12:59 400 mg DAILY DRAKE Administration Metoclopramide HCl 5 mg 02/29/20 16:30 Reglan 10 Mg PO 03/30/20 16:29 TIDAC DRAKE Metoprolol Tartrate 100 mg 02/29/20 13:00 02/29/20 13:44 Lopressor 50 Mg PO 03/30/20 12:59 100 mg BID DRAKE Administration Ondansetron HCl 4 mg 02/28/20 19:37 02/29/20 15:33 Zofran 4 Mg/2 Ml Vial IV 03/29/20 19:36 4 mg Q6H PRN PRN Administration NAUSEA/VOMITING Pantoprazole Sodium 40 mg 03/01/20 10:00 Protonix 40mg Tablet PO 03/31/20 09:59 DAILY DRAKE Potassium Chloride 20 meq 02/29/20 13:00 02/29/20 13:41 Klor Con 10 Meq PO 03/30/20 12:59 20 meq BID DRAKE Administration Simvastatin 20 mg 02/29/20 13:00 02/29/20 13:44 Zocor 20mg PO 03/30/20 12:59 20 mg DAILY DRAKE Administration Sucralfate 1 g 02/29/20 16:30 Carafate 1 Gm PO 03/30/20 16:29 BIDAC DRAKE Tamsulosin HCl 0.4 mg 02/29/20 15:00 02/29/20 13:43 Flomax 0.4 Mg PO 03/30/20 14:59 0.4 mg DAILY DRAKE Administration Discontinued Medications Generic Name Dose Route Start Last Admin Trade Name Freq PRN Reason Stop Dose Admin Ceftriaxone Sodium/Dextrose 1 g in 50 mls @ 100 mls/hr 02/28/20 19:36 02/28/20 19:45 Rocephin 1 Gm-D5w 50 Ml Bag IV 02/28/20 20:05 100 ml/hr STAT STA 100 mls/hr Administration Ceftriaxone Sodium/Dextrose Confirm 02/28/20 19:38 Rocephin 1 Gm-D5w 50 Ml Bag Administered 02/28/20 19:39 Dose 1 g in 50 mls @ ud IV .STK-MED ONE Pantoprazole Sodium 40 mg 02/29/20 10:00 02/29/20 10:51 Protonix 40 Mg Iv IV 03/30/20 09:59 40 mg Q24H10 DRAKE Administration Intake & Output (Last 24 hours) 02/27/20 02/28/20 02/29/20 03/01/20 11:59 11:59 11:59 11:59 Intake Total 1367 Output Total 1900 Balance -533 Weight 83 kg Microbiology Results (Last 24 hours) 02/28/20 19:45 Blood Blood Culture Gram Stain - Pending 02/28/20 19:45 Blood Blood Culture - Pending 02/28/20 17:50 Blood Blood Culture Gram Stain - Pending 02/28/20 17:50 Blood Blood Culture - Pending 02/28/20 19:10 Urine, Void Urine Culture - Pending Laboratory Results (Last 24 hours) 02/29/20 02/29/20 02/29/20 13:30 05:00 04:25 WBC RBC Hgb Hct MCV MCH MCHC RDW Plt Count MPV Gran % Eos # (Auto) Absolute Lymphs (auto) Absolute Monos (auto) Lymphocytes % Monocytes % Eosinophils % Basophils % Absolute Granulocytes Basophils # Sodium 139 Potassium 3.5 Chloride 105 Carbon Dioxide 24 Anion Gap 13.3 BUN 16 Creatinine 1.41 H Estimated GFR 50.4 Glucose 110 H Hemoglobin A1c 6.09 H Calcium 8.5 Total Bilirubin 0.40 AST 14 L ALT 10 Alkaline Phosphatase 95 Troponin I Serum Total Protein 6.4 Albumin 3.6 Urine Color Urine Appearance Urine pH Ur Specific Marion Urine Protein Urine Ketones Urine Blood Urine Nitrite Urine Bilirubin Urine Urobilinogen Ur Leukocyte Esterase Urine WBC (Auto) Urine RBC (Auto) U Epithel Cells (Auto) Urine Bacteria (Auto) Urine Culture Reflexed Urine Glucose SARS-CoV-2 (PCR) NEGATIVE 02/29/20 02/28/20 02/28/20 04:25 19:57 19:10 WBC 4.1 RBC 3.98 L Hgb 10.4 L Hct 32.9 L MCV 82.7 MCH 26.1 MCHC 31.6 L RDW 16.5 H Plt Count 134 L MPV 9.6 Gran % 35.8 L Eos # (Auto) 0.16 Absolute Lymphs (auto) 1.60 Absolute Monos (auto) 0.85 Lymphocytes % 38.6 Monocytes % 20.5 H Eosinophils % 3.9 Basophils % 1.2 Absolute Granulocytes 1.48 Basophils # 0.05 Sodium Potassium Chloride Carbon Dioxide Anion Gap BUN Creatinine Estimated GFR Glucose Hemoglobin A1c Calcium Total Bilirubin AST ALT Alkaline Phosphatase Troponin I < 0.012 Serum Total Protein Albumin Urine Color YELLOW Urine Appearance CLEAR Urine pH 7.0 Ur Specific Marion 1.010 Urine Protein NEGATIVE Urine Ketones NEGATIVE Urine Blood NEGATIVE Urine Nitrite NEGATIVE Urine Bilirubin NEGATIVE Urine Urobilinogen NEGATIVE Ur Leukocyte Esterase LARGE Urine WBC (Auto) 51-100 Urine RBC (Auto) 0-2 U Epithel Cells (Auto) NONE Urine Bacteria (Auto) NONE SEEN Urine Culture Reflexed YES Urine Glucose NEGATIVE SARS-CoV-2 (PCR) 02/28/20 02/28/20 02/28/20 18:15 18:09 18:09 WBC 3.8 L RBC 4.46 Hgb 11.6 L Hct 36.6 L MCV 82.1 MCH 26.0 MCHC 31.7 L RDW 16.7 H Plt Count 152 MPV 10.2 Gran % 39.3 Eos # (Auto) 0.13 Absolute Lymphs (auto) 1.38 Absolute Monos (auto) 0.74 Lymphocytes % 36.6 Monocytes % 19.6 H Eosinophils % 3.4 Basophils % 1.1 Absolute Granulocytes 1.48 Basophils # 0.04 Sodium 138 Potassium 3.8 Chloride 103 Carbon Dioxide 24 Anion Gap 15.7 H BUN 17 Creatinine 1.33 H Estimated GFR 53.9 Glucose 163 H Hemoglobin A1c Calcium 9.1 Total Bilirubin 0.70 AST 20 ALT 12 Alkaline Phosphatase 104 Troponin I < 0.012 Serum Total Protein 7.3 Albumin 4.1 Urine Color Urine Appearance Urine pH Ur Specific Marion Urine Protein Urine Ketones Urine Blood Urine Nitrite Urine Bilirubin Urine Urobilinogen Ur Leukocyte Esterase Urine WBC (Auto) Urine RBC (Auto) U Epithel Cells (Auto) Urine Bacteria (Auto) Urine Culture Reflexed Urine Glucose SARS-CoV-2 (PCR) Orders (Last 24 hours) Category Date Time Status Bedrest ROUTINE Activity 02/28/20 19:39 Active Accucheck ACHS Care 02/28/20 19:37 Active Call Admit Doctor for Orders ON ADMISSION Care 02/28/20 19:38 Active Code Status Order ROUTINE Care 02/28/20 19:37 Active Fall Protocol ROUTINE Care 02/28/20 19:39 Completed IV Care Q6H Care 02/28/20 19:[address] in Observation ROUTINE Care 02/28/20 19:37 Active Vital Signs Q4H Care 02/28/20 19:37 Completed Soft Diet Diet 02/29/20 Breakfast Active CHEST WITHOUT CONTRAST [CT] Stat Exams 02/28/20 18:21 Completed HEAD WITHOUT CONTRAST [CT] Stat Exams 02/28/20 18:19 Completed BLOOD CULTURE Stat Lab 02/28/20 19:45 Received CBC W DIFF AM.LAB Lab 02/29/20 04:25 Completed CBC W DIFF Stat Lab 02/28/20 18:09 Completed CMP AM.LAB Lab 02/29/20 04:25 Completed CMP Stat Lab 02/28/20 18:09 Completed CULTURE,URINE Stat Lab 02/28/20 19:10 Received HEMOGLOBIN A1C Urgent Lab 02/29/20 05:00 Completed TROPONIN Q3H Lab 02/28/20 18:15 Completed TROPONIN Q3H Lab 02/28/20 19:57 Completed UA W/RFX UR CULTURE Stat Lab 02/28/20 19:10 Completed Allopurinol 100 mg [Zyloprim 100 mg] Med 02/29/20 13:00 Active 100 mg PO DAILY Amlodipine Besylate 5 mg [Norvasc 5 mg] Med 02/29/20 13:00 Active 5 mg PO DAILY Ceftriaxone 1 GM/50 ML PREMIX* [ROCEPHIN 1 Gm-D5w 50 ml Med 02/29/20 22:00 Active Bag] 1 g in 50 ml IV Q24H22 Ceftriaxone 1 GM/50 ML PREMIX* [ROCEPHIN 1 Gm-D5w 50 ml Med 02/28/20 19:36 Discontinued Bag] 1 g in 50 ml IV STAT Ceftriaxone 1 GM/50 ML PREMIX* [ROCEPHIN 1 Gm-D5w 50 ml Med 02/28/20 19:38 Discontinued Bag] 1 g in 50 ml IV UD Clonazepam 0.5 mg [Klonopin 0.5 MG] Med 02/29/20 13:00 Active 0.5 mg PO BID Enoxaparin Sodium [Enoxaparin Sodium] Med 02/29/20 10:00 Active 40 mg SQ DAILY Furosemide 20 mg [Lasix 20 mg] Med 02/29/20 15:00 Active 20 mg PO 1500 Gabapentin 100 mg [Neurontin 100 MG] Med 02/29/20 13:00 Active 100 mg PO BID Glimepiride 2 mg [Amaryl 2 MG] Med 02/29/20 13:00 Active 1 mg PO BREAKFAST Hydrochlorothiazide 25 mg [hydroDIURIL 25 MG] Med 02/29/20 13:00 Active 12.5 mg PO DAILY Losartan Potassium 50 mg [Cozaar 50 MG] Med 02/29/20 13:00 Active 50 mg PO DAILY Magnesium Oxide 400 mg [Mag-Ox 400] Med 02/29/20 13:00 Active 400 mg PO DAILY Metoclopramide HCl 10 mg [Reglan 10 MG] Med 02/29/20 16:30 Active 5 mg PO TIDAC Metoprolol Tartrate 50 mg [Lopressor 50 MG] Med 02/29/20 13:00 Active 100 mg PO BID NaCl 0.9% 1000 ml [Sodium Chloride 0.9% 1000 ML] 1,000 Med 02/28/20 19:45 Active ml IV 70 mls/hr Ondansetron HCl 4 mg/2 ml [Zofran 4 MG/2 ML VIAL] Med 02/28/20 19:37 Active 4 mg IV Q6H PRN PRN PANTOPRAZOLE 40 mg Tablet [Protonix 40MG Tablet] Med 03/01/20 10:00 Active 40 mg PO DAILY Pantoprazole 40 mg [Protonix 40 mg IV] Med 02/29/20 10:00 Discontinued 40 mg IV Q24H10 Potassium Chloride 10 Meq Tab* [Klor Con 10 MEQ] Med 02/29/20 13:00 Active 20 meq PO BID Simvastatin 20Mg [Zocor 20Mg] Med 02/29/20 13:00 Active 20 mg PO DAILY Sucralfate 1 gm [Carafate 1 GM] Med 02/29/20 16:30 Active 1 g PO BIDAC Tamsulosin HCl 0.4 mg [Flomax 0.4 MG] Med 02/29/20 15:00 Active 0.4 mg PO DAILY OT Screen per Nursing Assess ONCE OT 02/28/20 21:16 Active PT Screen per Nursing Assess ONCE PT 02/28/20 21:16 Completed Pulse Oximetry CONTINUOUS RT 02/28/20 19:40 Active Code(s): N39.0 - URINARY TRACT INFECTION, SITE NOT SPECIFIED (2) Syncope and collapse Current Visit: Yes Status: Acute Code(s): R55 - SYNCOPE AND COLLAPSE (3) Benign prostatic hyperplasia Current Visit: No Status: Acute Code(s): N40.0 - BENIGN PROSTATIC HYPERPLASIA WITHOUT LOWER URINRY TRACT SYMP (4) CHF (congestive heart failure), NYHA class IV Current Visit: No Status: Acute Qualifiers: Code(s): I50.9 - HEART FAILURE, UNSPECIFIED (5) COPD (chronic obstructive pulmonary disease) Current Visit: No Status: Acute (6) Dizziness Current Visit: No Status: Acute Code(s): R42 - DIZZINESS AND GIDDINESS (7) HTN (hypertension) Current Visit: No Status: Acute Qualifiers: Code(s): I10 - ESSENTIAL (PRIMARY) HYPERTENSION
[2020-02-29] MEDS: Carafate 1 GM PO SCH (17:24)
[2020-02-29] MEDS: Reglan 10 MG PO SCH (17:26)
[2020-02-29] MEDS ORDERED: NON-FORMULARY ITEM (Metoprolol Tartrate [Metoprolol Tartrate] 100 MG) PO SCH (22:00)
[2020-02-29] MEDS ORDERED: ROCEPHIN 1 Gm-D5w 50 ml Bag** 1 G/50 ML IVPB IV SCH (22:00)
[2020-02-29] MEDS ORDERED: POTASSIUM CHLORIDE 20 MEQ PO SCH (22:00)
[2020-03-01] MEDS: Amaryl 2 MG PO SCH (08:11)
[2020-03-01] MEDS: Reglan 10 MG PO SCH ×2 (08:12→11:15)
[2020-03-01] MEDS: Carafate 1 GM PO SCH (08:18)
[2020-03-01] MEDS: hydroDIURIL 25 MG PO SCH (09:39)
[2020-03-01] MEDS: ZYLOPRIM 100 MG PO SCH (09:40)
[2020-03-01] MEDS: Lopressor 50 MG PO SCH (09:40)
[2020-03-01] MEDS: Flomax 0.4 MG PO SCH (09:40)
[2020-03-01] MEDS: ZOCOR 20MG PO SCH (09:41)
[2020-03-01] MEDS: NORVASC 5 MG PO SCH (09:41)
[2020-03-01] MEDS: Neurontin 100 MG PO SCH (09:42)
[2020-03-01] MEDS: Klor Con 10 MEQ PO SCH (09:42)
[2020-03-01] MEDS: MAG-OX 400 PO SCH (09:42)
[2020-03-01] MEDS: ENOXAPARIN SODIUM SQ SCH (09:43)
[2020-03-01] MEDS: Klonopin 0.5 MG PO SCH (09:43)
[2020-03-01] MEDS: Cozaar 50 MG PO SCH (09:43)
[2020-03-01] MEDS ORDERED: NON-FORMULARY ITEM (Pravastatin Sodium [Pravastatin Sodium] 20 MG) PO SCH (10:00)
[2020-03-01] MEDS ORDERED: NON-FORMULARY ITEM (Magnesium Oxide [Magnesium] 400 MG) PO SCH (10:00)
[2020-03-01] MEDS ORDERED: Protonix 40MG Tablet PO SCH (10:00)
[2020-03-01] MEDS ORDERED: NON-FORMULARY ITEM (Hydrochlorothiazide [Hydrochlorothiazide] 12.5 MG) PO SCH (10:00)
[2020-03-01] MEDS ORDERED: NON-FORMULARY ITEM (Glimepiride [Glimepiride] 1 MG) PO SCH (10:00)
[2020-03-01 11:48] VITALS: BP 113/56; PULSE 57; O2SAT 93
--- NOTE | 2020-03-01 12:35 | PCM.DS ---
Discharge Summary Date of Admission: 02/28/20 20:09 Admitting Physician: CHANDANA DUNNE Primary Care Provider: CHANDANA DUNNE Allergies Allergies aspirin Adverse Reaction (Verified 08/19/19 18:43) Hospital Summary - Hospital Course Hospital Course: Chief Complaint Diagnosis syncope episode today Allergies Allergy/AdvReac Type Severity Reaction Status Date / Time aspirin AdvReac Verified 08/19/19 18:43 Vital Signs (Last 24 hours) Temp Pulse Resp BP Pulse Ox 03/01/20 11:46 97.7 F 57 L 16 113/56 93 L 03/01/20 08:00 98.3 F 53 L 14 110/55 95 03/01/20 04:00 98.0 F 58 L 16 113/78 95 03/01/20 00:51 92 L 03/01/20 00:00 98.6 F 57 L 20 111/53 95 02/29/20 20:00 98.8 F 67 16 119/67 94 L 02/29/20 19:12 92 L 02/29/20 15:59 98.2 F 78 18 113/58 97 Home Medications Medication Instructions Recorded Confirmed Last Taken Type Gabapentin 100 cap PO BID 02/28/20 02/28/20 02/28/20 History Metoprolol Tartrate 100 mg PO BID 02/28/20 02/28/20 02/28/20 History Furosemide 20 mg [Lasix 20 20 mg PO DAILY 02/29/20 02/29/20 Unknown History mg] Current Medications Generic Name Dose Route Start Last Admin Trade Name Freq PRN Reason Stop Dose Admin Allopurinol 100 mg 02/29/20 13:00 03/01/20 09:40 Zyloprim 100 Mg PO 03/30/20 12:59 100 mg DAILY DRAKE Administration Amlodipine Besylate 5 mg 02/29/20 13:00 03/01/20 09:41 Norvasc 5 Mg PO 03/30/20 12:59 5 mg DAILY DRAKE Administration Clonazepam 0.5 mg 02/29/20 13:00 03/01/20 09:43 Klonopin 0.5 Mg PO 03/30/20 12:59 0.5 mg BID DRAKE Administration Enoxaparin Sodium 40 mg 02/29/20 10:00 03/01/20 09:43 Enoxaparin Sodium SQ 03/30/20 09:59 40 mg DAILY DRAKE Administration Furosemide 20 mg 02/29/20 15:00 02/29/20 13:45 Lasix 20 Mg PO 03/30/20 14:59 20 mg 1500 DRAKE Administration Gabapentin 100 mg 02/29/20 13:00 03/01/20 09:42 Neurontin 100 Mg PO 03/30/20 12:59 100 mg BID DRAKE Administration Glimepiride 1 mg 02/29/20 13:00 03/01/20 08:11 Amaryl 2 Mg PO 03/30/20 12:59 1 mg BREAKFAST DRAKE Administration Hydrochlorothiazide 12.5 mg 02/29/20 13:00 03/01/20 09:39 Hydrodiuril 25 Mg PO 03/30/20 12:59 12.5 mg DAILY DRAKE Administration Sodium Chloride 1,000 mls @ 70 mls/hr 02/28/20 19:45 02/29/20 11:48 Sodium Chloride 0.9% 1000 Ml IV 03/29/20 19:44 70 mls/hr .[id number] DRAKE Administration Ceftriaxone Sodium/Dextrose 1 g in 50 mls @ 100 mls/hr 02/29/20 22:00 02/29/20 22:09 Rocephin 1 Gm-D5w 50 Ml Bag IV 03/30/20 21:59 100 mls/hr Q24H22 DRAKE Administration Losartan Potassium 50 mg 02/29/20 13:00 03/01/20 09:43 Cozaar 50 Mg PO 03/30/20 12:59 50 mg DAILY DRAKE Administration Magnesium Oxide 400 mg 02/29/20 13:00 03/01/20 09:42 Mag-Ox 400 PO 03/30/20 12:59 400 mg DAILY DRAKE Administration Metoclopramide HCl 5 mg 02/29/20 16:30 03/01/20 11:15 Reglan 10 Mg PO 03/30/20 16:29 5 mg TIDAC DRAKE Administration Metoprolol Tartrate 100 mg 02/29/20 13:00 03/01/20 09:40 Lopressor 50 Mg PO 03/30/20 12:59 100 mg BID DRAKE Administration Ondansetron HCl 4 mg 02/28/20 19:37 02/29/20 15:33 Zofran 4 Mg/2 Ml Vial IV 03/29/20 19:36 4 mg Q6H PRN PRN Administration NAUSEA/VOMITING Pantoprazole Sodium 40 mg 03/01/20 10:00 03/01/20 09:42 Protonix 40mg Tablet PO 03/31/20 09:59 40 mg DAILY DRAKE Administration Potassium Chloride 20 meq 02/29/20 13:00 03/01/20 09:42 Klor Con 10 Meq PO 03/30/20 12:59 20 meq BID DRAKE Administration Simvastatin 20 mg 02/29/20 13:00 03/01/20 09:41 Zocor 20mg PO 03/30/20 12:59 20 mg DAILY DRAKE Administration Sucralfate 1 g 02/29/20 16:30 03/01/20 08:18 Carafate 1 Gm PO 03/30/20 16:29 1 g BIDAC DRAKE Administration Tamsulosin HCl 0.4 mg 02/29/20 15:00 03/01/20 09:40 Flomax 0.4 Mg PO 03/30/20 14:59 0.4 mg DAILY DRAKE Administration Discontinued Medications Generic Name Dose Route Start Last Admin Trade Name Freq PRN Reason Stop Dose Admin Ceftriaxone Sodium/Dextrose 1 g in 50 mls @ 100 mls/hr 02/28/20 19:36 02/28/20 19:45 Rocephin 1 Gm-D5w 50 Ml Bag IV 02/28/20 20:05 100 ml/hr STAT STA 100 mls/hr Administration Ceftriaxone Sodium/Dextrose Confirm 02/28/20 19:38 Rocephin 1 Gm-D5w 50 Ml Bag Administered 02/28/20 19:39 Dose 1 g in 50 mls @ ud IV .STK-MED ONE Pantoprazole Sodium 40 mg 02/29/20 10:00 02/29/20 10:51 Protonix 40 Mg Iv IV 03/30/20 09:59 40 mg Q24H10 DRAKE Administration Intake & Output (Last 24 hours) 02/28/20 02/29/20 03/01/20 03/02/20 11:59 11:59 11:59 11:59 Intake Total 1367 2394 Output Total 1900 2200 Balance -533 194 Weight 83 kg Microbiology Results (Last 24 hours) 02/28/20 19:10 Urine, Void Urine Culture - Final MIXED RADHA; 3 OR MORE TYPES. NO PREDOMINANT ORGANISM. NO FURTHER WORKUP. PLEASE RESUBMIT IF CLINICALLY INDICATED. 02/28/20 19:45 Blood Blood Culture Gram Stain - Pending 02/28/20 19:45 Blood Blood Culture - Preliminary NO GROWTH TO DATE 02/28/20 17:50 Blood Blood Culture Gram Stain - Pending 02/28/20 17:50 Blood Blood Culture - Preliminary NO GROWTH TO DATE Laboratory Results (Last 24 hours) 02/29/20 02/29/20 13:30 05:00 Hemoglobin A1c 6.09 H SARS-CoV-2 (PCR) NEGATIVE Orders (Last 24 hours) Category Date Time Status Allopurinol 100 mg [Zyloprim 100 mg] Med 02/29/20 13:00 Active 100 mg PO DAILY Amlodipine Besylate 5 mg [Norvasc 5 mg] Med 02/29/20 13:00 Active 5 mg PO DAILY Ceftriaxone 1 GM/50 ML PREMIX* [ROCEPHIN 1 Gm-D5w 50 ml Med 02/29/20 22:00 A ctive Bag] 1 g in 50 ml IV Q24H22 Clonazepam 0.5 mg [Klonopin 0.5 MG] Med 02/29/20 13:00 Active 0.5 mg PO BID Furosemide 20 mg [Lasix 20 mg] Med 02/29/20 15:00 Active 20 mg PO 1500 Gabapentin 100 mg [Neurontin 100 MG] Med 02/29/20 13:00 Active 100 mg PO BID Glimepiride 2 mg [Amaryl 2 MG] Med 02/29/20 13:00 Active 1 mg PO BREAKFAST Hydrochlorothiazide 25 mg [hydroDIURIL 25 MG] Med 02/29/20 13:00 Active 12.5 mg PO DAILY Losartan Potassium 50 mg [Cozaar 50 MG] Med 02/29/20 13:00 Active 50 mg PO DAILY Magnesium Oxide 400 mg [Mag-Ox 400] Med 02/29/20 13:00 Active 400 mg PO DAILY Metoclopramide HCl 10 mg [Reglan 10 MG] Med 02/29/20 16:30 Active 5 mg PO TIDAC Metoprolol Tartrate 50 mg [Lopressor 50 MG] Med 02/29/20 13:00 Active 100 mg PO BID PANTOPRAZOLE 40 mg Tablet [Protonix 40MG Tablet] Med 03/01/20 10:00 Active 40 mg PO DAILY Potassium Chloride 10 Meq Tab* [Klor Con 10 MEQ] Med 02/29/20 13:00 Active 20 meq PO BID Simvastatin 20Mg [Zocor 20Mg] Med 02/29/20 13:00 Active 20 mg PO DAILY Sucralfate 1 gm [Carafate 1 GM] Med 02/29/20 16:30 Active 1 g PO BIDAC Tamsulosin HCl 0.4 mg [Flomax 0.4 MG] Med 02/29/20 15:00 Active 0.4 mg PO DAILY Oxygen NASAL CANNULA 2 lpm RT 03/01/20 00:51 Active Patient Care Notes (Last 24 hours) 03/01/20 00:17 Nursing Note by Curtis Giraldo oxygen therapy initiated at 2lpm via nasal cannula at this time as pt's o2 sats are falling below 90% while he is asleep. no distress. Initialized on 03/01/20 00:17 - END OF NOTE - Vitals & Intake/Output Vital Signs: Vital Signs Temperature 97.7 F 03/01/20 11:46 Pulse Rate 57 L 03/01/20 11:46 Respiratory Rate 16 03/01/20 11:46 Blood Pressure 113/56 03/01/20 11:46 O2 Sat by Pulse Oximetry 93 L 03/01/20 11:46 Intake & Output: Intake & Output 02/28/20 02/29/20 03/01/20 03/02/20 11:59 11:59 11:59 11:59 Intake Total 1367 2394 Output Total 1900 2200 Balance -533 194 Weight 83 kg - Lab Result Diagrams: 02/29/20 04:25 02/29/20 04:25 Lab Results-Last 24 Hrs: Accuchecks Date 03/01/20 Date 02/29/20 Date 02/29/20 Time 07:30 Time 22:00 Time 16:30 Accucheck Value: 95 Accucheck Value: 73 Accucheck Value: 124 Lab Results-Last 24 Hours 02/29/20 02/29/20 Range/Units 05:00 13:30 Hemoglobin A1c 6.09 H (4.5-6.0) % SARS-CoV-2 (PCR) NEGATIVE (NEGATIVE) Micro Results-Entire Visit: Microbiology 02/28/20 19:10 Urine Culture - Final Urine, Void MIXED RADHA; 3 OR MORE TYPES. NO PREDOMINANT ORGANISM. NO FURTHER WORKUP. PLEASE RESUBMIT IF CLINICALLY INDICATED. 02/28/20 19:45 Blood Culture - Preliminary Blood NO GROWTH TO DATE 02/28/20 17:50 Blood Culture - Preliminary Blood NO GROWTH TO DATE Accuchecks Date 03/01/20 Date 02/29/20 Date 02/29/20 Time 07:30 Time 22:00 Time 16:30 Accucheck Value: 95 Accucheck Value: 73 Accucheck Value: 124 - Radiology Exams Ordered Rad Exams-Entire Visit: Radiology Procedures Category Date Time Status CHEST WITHOUT CONTRAST [CT] Stat Exams 02/28/20 18:21 Completed HEAD WITHOUT CONTRAST [CT] Stat Exams 02/28/20 18:19 Completed - Procedures and Test Procedures and Tests throughout Hospitalization: Therapy Orders & Screens 02/28/20 21:16 OT Screen per Nursing Assess ONCE Comment: Protocol Order Physician Instructions: Greater than 3 points order OT Admission Screening Reason For Exam: Triggered on Admission Diagnosis: syncope, UTI Open Wound/Cellutlitis/Pressure Ulcers: Yes Acute Fx/ORIF/Change in wt bearing status: No Severe MUSCULOSKELETAL pain: No ADL Dysfunction: No Acute CVA w/Hemiparesis/Hemiplegia: No Decreased Functional Mobility/Strength: No Sprain/Strain: No Acute Post-op Mobility Dysfunction: No Total Points: 5 PT Screen per Nursing Assess ONCE Comment: Protocol Order Physician Instructions: Greater than 3 points order PT Admission Screenin Reason For Exam: Triggered on Admission Diagnosis: syncope, UTI Open Wound/Cellutlitis/Pressure Ulcers: Yes Acute Fx/ORIF/Change in wt bearing status: No Severe MUSCULOSKELETAL pain: No ADL Dysfunction: No Acute CVA w/Hemiparesis/Hemiplegia: No Decreased Functional Mobility/Strength: No Sprain/Strain: No Acute Post-op Mobility Dysfunction: No Total Points: 5 03/01/20 00:51 Oxygen NASAL CANNULA 2 lpm Comment: Diagnosis: syncope episode today Discharge Exam General Appearance: no apparent distress, alert Neurologic Exam: alert, oriented x 3, cooperative, normal mood/affect, nml cerebellar function, sensation nml, No motor deficits Eye Exam: PERRL, EOMI, eyes nml inspection Ears, Nose, Throat Exam: normal ENT inspection, pharynx normal, moist mucous membranes Neck Exam: normal inspection, non-tender, supple, full range of motion Respiratory Exam: normal breath sounds, lungs clear, No respiratory distress Cardiovascular Exam: regular rate/rhythm, normal heart sounds Gastrointestinal/Abdomen Exam: soft, No tenderness, No mass Male Genitalia Exam: deferred Rectal Exam: deferred Back Exam: normal inspection, normal range of motion, No CVA tenderness, No vertebral tenderness Extremity Exam: normal inspection, normal range of motion Skin Exam: normal color, warm, dry Final Diagnosis/Problem List - Final Discharge Diagnosis/Problem (1) UTI (urinary tract infection) Current Visit: Yes Status: Acute Assessment & Plan: start cipro 500 mg po bid for 7 days Code(s): N39.0 - URINARY TRACT INFECTION, SITE NOT SPECIFIED (2) Syncope and collapse Current Visit: Yes Status: Acute Code(s): R55 - SYNCOPE AND COLLAPSE (3) Benign prostatic hyperplasia Current Visit: No Status: Acute Code(s): N40.0 - BENIGN PROSTATIC HYPERPLASIA WITHOUT LOWER URINRY TRACT SYMP (4) CHF (congestive heart failure), NYHA class IV Current Visit: No Status: Acute Code(s): I50.9 - HEART FAILURE, UNSPECIFIED (5) COPD (chronic obstructive pulmonary disease) Current Visit: No Status: Acute (6) Dizziness Current Visit: No Status: Acute Code(s): R42 - DIZZINESS AND GIDDINESS (7) HTN (hypertension) Current Visit: No Status: Acute Code(s): I10 - ESSENTIAL (PRIMARY) HYP ERTENSION - Discharge Discharge Date: 03/01/20 Disposition: Home, Self-Care Condition: Stable Prescriptions: New Ciprofloxacin [Cipro 500 MG] 500 mg PO BID #15 tablet Continue Tamsulosin HCl 0.4 mg [Flomax 0.4 MG] 0.4 mg PO DAILY Allopurinol 100 mg [Zyloprim 100 mg] 100 mg PO DAILY Losartan Potassium 50 mg [Cozaar 50 MG] 50 mg PO DAILY Amlodipine Besylate 5 mg [Norvasc 5 mg] 5 mg PO DAILY Sucralfate 1 gm [Carafate 1 GM] 1 gm PO BID Pravastatin Sodium 20 mg PO DAILY Pantoprazole Sodium 40 mg PO DAILY Glimepiride 1 mg PO DAILY Magnesium Oxide [Magnesium] 400 mg PO DAILY Metoclopramide HCl 5 mg PO TID Potassium Chloride [Klor-Con M10] 20 meq PO BID hydroCHLOROthiazide [Hydrochlorothiazide] 12.5 mg PO DAILY clonazePAM [Clonazepam] 0.5 mg PO BID Gabapentin 100 cap PO BID Metoprolol Tartrate 100 mg PO BID Furosemide 20 mg [Lasix 20 mg] 20 mg PO DAILY Instructions: Preventing Falls in the Older Adult, Syncope (Fainting) (DC) Additional Instructions: DR DUNNE APPOINTMENT IN [place] Follow up with: CHANDANA DUNNE MD [Primary Care Provider] - 03/08/20 10:15 am Forms: Discharge Instructions
== END 2020-03-01 13:20 | disposition home or self-care (01) ==
LOC: ED 17:39 → MED SURG 20:09 → EDBD 20:09
PROVIDERS: ADMIT General Practice; ATTEND General Practice
DX: N39.0 Urinary tract infection, site not specified (principal); R55 Syncope and collapse; N40.0 Benign prostatic hyperplasia without lower urinary tract symptoms; I50.9 Heart failure, unspecified; J44.9 Chronic obstructive pulmonary disease, unspecified; R42 Dizziness and giddiness; E11.9 Type 2 diabetes mellitus without complications; Z11.59 Encounter for screening for other viral diseases; I10 Essential (primary) hypertension; E78.00 Pure hypercholesterolemia, unspecified; Z79.899 Other long term (current) drug therapy; Z86.73 Personal history of transient ischemic attack (TIA), and cerebral infarction without residual deficits
CPT/HCPCS: 36415; 70450; 71250; 80053; 81001; 82962; 83036; 84484; 85025; 87040; 87086; 93268; 94762; 96365; 99284; G0378; U0003; J0696; J1650; J2405; A9270-GY

== ENCOUNTER 2020-03-17 14:59 | Observation (INO) | payer MEDICARE ==
--- NOTE | 2020-03-17 15:06 | ERPHSYRPT ---
- History of Present Illness Time Seen by Provider: 03/17/20 15:30 Source: patient Physician History: Patient is an 89-year-old male presents to our ED for evaluation of weakness. Patient lives with his daughter. Daughter states patient was well last night. However this morning upon awakening she observed that patient was confused and weak. Patient was calling his daughter his 's name. Patient was also "shaking". Daughter apparently observe patient for some time and noticed he did not improve. She left her home at approximately 2:[address] towards our hospital. Her drive was approximately 1 hour. No reported trauma. Daughter states patient has problems with chronic vomiting. No fever. Patient denies pain. Patient has had "mini strokes" in the past per daughter. Patient has no focal or lateralizing findings at this time. Symptoms have been constant. Symptoms are moderate in intensity. No specific worsening or improving factors. Patient unable to contribute to this HPI at this time due to confusion/slow response time to answer questions. Daughter voiced no other complaints concerns at this time. Timing/Duration: today Severity: moderate Modifying Factors: Improves With: nothing Associated Symptoms: No nausea, No vomiting, No abdominal pain, No shortness of breath, No heartburn, No diaphoresis, No cough, No fever, No headaches, No loss of appetite, No malaise Allergies/Adverse Reactions: aspirin Adverse Reaction (Verified 03/17/20 15:14) Home Medications: Allopurinol 100 mg [Zyloprim 100 mg] 100 mg PO DAILY 08/11/19 [History] Amlodipine Besylate 5 mg [Norvasc 5 mg] 5 mg PO DAILY 08/11/19 [History] Glimepiride 1 mg PO DAILY 08/11/19 [History] Losartan Potassium 50 mg [Cozaar 50 MG] 50 mg PO DAILY 08/11/19 [History] Pantoprazole Sodium 40 mg PO DAILY 08/11/19 [History] Pravastatin Sodium 20 mg PO DAILY 08/11/19 [History] Sucralfate 1 gm [Carafate 1 GM] 1 gm PO BID 08/11/19 [History] Tamsulosin HCl 0.4 mg [Flomax 0.4 MG] 0.4 mg PO DAILY 08/11/19 [History] Magnesium Oxide [Magnesium] 400 mg PO DAILY 08/19/19 [History] Metoclopramide HCl 5 mg PO TID 08/19/19 [History] Potassium Chloride [Klor-Con M10] 20 meq PO BID 08/19/19 [History] clonazePAM [Clonazepam] 0.5 mg PO BID 08/19/19 [History] hydroCHLOROthiazide [Hydrochlorothiazide] 12.5 mg PO DAILY 08/19/19 [History] Gabapentin 100 cap PO BID 02/28/20 [History] Vit D3-Vit K/Berberine/Hops [Ostera Tablet] 1 ea DAILY 03/17/20 [History] Hx Tetanus, Diphtheria Vaccination/Date Given: No Hx Influenza Vaccination/Date Given: No Hx Pneumococcal Vaccination/Date Given: No - Past Medical History Pertinent Past Medical History: Yes Neurological History: TIA ENT History: No Pertinent History Cardiac History: Arrhythmia, High Cholesterol, Hypertension Respiratory History: Bronchitis Endocrine Medical History: Diabetes Type II Musculoskeletal History: Arthritis GI Medical History: GERD History: No Pertinent History Psycho-Social History: Anxiety Male Reproductive Disorders: Prostate Cancer Other Medical History: gout, 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 - Past Surgical History Past Surgical History: Yes Neuro Surgical History: No Pertinent History Cardiac: No Pertinent History Respiratory: No Pertinent History Gastrointestinal: Hemorrhoidectomy Genitourinary: No Pertinent History Musculoskeletal: Orthopedic Surgery Male Surgical History: No Pertinent History Other Surgical History: LT ARM - Social History Smoking Status: Never smoker Exposure to second hand smoke: Yes Drug Use: none Patient Lives Alone: No Significant Family History: no pertinent family hx - Nursing Vital Signs Nursing Vital Signs: Initial Vital Signs Pulse Rate 63 03/17/20 15:44 Respiratory Rate 18 03/17/20 15:44 Blood Pressure 120/64 03/17/20 15:44 O2 Sat by Pulse Oximetry 100 03/17/20 15:44 Pain Scale Pain Intensity 0 - Physical Exam General Appearance: no apparent distress, alert (Patient is alert but confused. Patient follows simple commands. Patient unable to answer moderately complex questions.), other Eye Exam: PERRL/EOMI, eyes nml inspection Ears, Nose, Throat Exam: normal ENT inspection, TMs normal, pharynx normal, moist mucous membranes Neck Exam: normal inspection, non-tender, supple, full range of motion Respiratory Exam: normal breath sounds, lungs clear, No respiratory distress Cardiovascular Exam: regular rate/rhythm, normal heart sounds, normal peripheral pulses Gastrointestinal/Abdomen Exam: soft, normal bowel sounds, No tenderness, No mass Back Exam: normal inspection, normal range of motion, No CVA tenderness, No vertebral tenderness Extremity Exam: normal inspection, normal range of motion, pelvis stable Neurologic Exam: alert, cooperative, nml cerebellar function, sensation nml, depressed mood/affect, other (Generalized weakness. No focal or lateralizing symptomology.), No motor deficits, No facial droop, No slurred speech Skin Exam: normal color, warm, dry, No rash Lymphatic Exam: No adenopathy SpO2 Interpretation: normal SpO2: 98 O2 Delivery: Room Air - Course Nursing assessment & vital signs reviewed: Yes EKG Interpreted by Me: RATE (64), Sinus Rhythm, NORMAL AXIS, NORMAL INTERVALS - Radiology Exams Chest X-ray Interpretation: Teleradiologist Report (Right lung airspace disease. Osteopenia. Apical calcified granuloma.) - CT Exams Head CT Interpretation: Tele-radiologist Report (Stable nonacute senile brain with again incidental right frontal calcified meningioma.) Ordered Tests: Active Orders 24 hr Category Date Time Status Piping Drafter STAT Care 03/17/20 15:03 Active EKG-ER Only STAT Care 03/17/20 15:02 Active IV Insertion STAT Care 03/17/20 15:02 Active NPO (ED) STAT Care 03/17/20 15:02 Active Pulse Oximetry (ED) STAT Care 03/17/20 15:02 Active CHEST 1 VIEW (PORTABLE) Stat Exams 03/17/20 15:03 Completed HEAD WITHOUT CONTRAST [CT] Stat Exams 03/17/20 15:00 Completed CBC W DIFF Stat Lab 03/17/20 15:10 Completed CMP Stat Lab 03/17/20 15:10 Completed Manual Differential NC Stat Lab 03/17/20 15:10 Completed TROPONIN Q3H Lab 03/17/20 17:15 Ordered TROPONIN Q3H Lab 03/17/20 20:15 Ordered TROPONIN Q3H Lab 03/17/20 23:15 Ordered TROPONIN Q3H Lab 03/18/20 02:15 Ordered TROPONIN Q3H Lab 03/18/20 05:15 Ordered TSH, 3RD Generation Stat Lab 03/17/20 15:00 Completed UA W/RFX UR CULTURE Stat Lab 03/17/20 15:59 Completed Transfer Order Routine Transfer 03/17/20 Ordered Medication Summary Generic Name Dose Route Start Last Admin Trade Name Jeri PRN Reason Stop Dose Admin Sodium Chloride 1,000 mls @ 75 mls/hr 03/17/20 16:15 03/17/20 16:14 Sodium Chloride 0.9% 1000 Ml IV 04/16/20 16:14 75 mls/hr .[id number] DRAKE Administration Lab/Rad Data: Laboratory Result Diagrams 03/17/20 15:10 03/17/20 15:10 Laboratory Results 03/17/20 03/17/20 03/17/20 Range/Units 15:59 15:10 15:10 WBC 13.6 H (4.0-10.5) K/mm3 RBC 4.29 (4.1-5.6) M/mm3 Hgb 11.4 L (12.5-18.0) gm/dl Hct 35.3 L (42-50) % MCV 82.3 (78-100) fl MCH 26.6 (26-32) pg MCHC 32.3 (32-36) g/dl RDW 16.5 H (11.5-14.0) % Plt Count 199 (150-450) K/mm3 MPV 10.3 (7.5-11.0) fl Segmented Neutrophils 80 H (36.-66.) % Lymphocytes (Manual) 8 L (24-44) % Monocytes (Manual) 11 (0.0-12.0) % Eosinophils (Manual) 1 (0.00-3.0) % Platelet Estimate NORMAL (NORMAL) RBC Morphology NORMAL Sodium 136 L (137-145) mmol/L Potassium 4.9 (3.5-5.1) mmol/L Chloride 102 (98-107) mmol/L Carbon Dioxide 25 (22-30) mmol/L Anion Gap 14.2 (5-15) MEQ/L BUN 20 (9-20) mg/dL Creatinine 1.50 H (0.66-1.25) mg/dL Estimated GFR 46.9 ML/MIN Glucose 101 (74-106) mg/dL Calcium 9.2 (8.4-10.2) mg/dL Total Bilirubin 1.00 (0.2-1.3) mg/dL AST 18 (17-59) U/L ALT 11 (0-50) U/L Alkaline Phosphatase 94 (38-126) U/L Serum Total Protein 7.5 (6.3-8.2) g/dL Albumin 4.3 (3.5-5.0) g/dL TSH 3rd Generation (0.47-4.68) mIU/L Urine Color YELLOW (YELLOW) Urine Appearance CLEAR (CLEAR) Urine pH 7.0 (5-6) Ur Specific [place] 1.009 (1.005-1.025) Urine Protein NEGATIVE (Negative) Urine Ketones NEGATIVE (NEGATIVE) Urine Blood NEGATIVE (0-5) Srinivasan/ul Urine Nitrite NEGATIVE (NEGATIVE) Urine Bilirubin NEGATIVE (NEGATIVE) Urine Urobilinogen NEGATIVE (0-1) mg/dL Ur Leukocyte Esterase NEGATIVE (NEGATIVE) Urine WBC (Auto) NONE (0-5) /HPF Urine RBC (Auto) NONE (0-2) /HPF U Epithel Cells (Auto) NONE (FEW) /HPF Urine Bacteria (Auto) NONE (NEGATIVE) /HPF Urine Mucus (Auto) SLIGHT (NEGATIVE) /HPF Urine Culture Reflexed NO (NO) Urine Glucose NEGATIVE (NEGATIVE) mg/dL 03/17/20 Range/Units 15:00 WBC (4.0-10.5) K/mm3 RBC (4.1-5.6) M/mm3 Hgb (12.5-18.0) gm/dl Hct (42-50) % MCV (78-100) fl MCH (26-32) pg MCHC (32-36) g/dl RDW (11.5-14.0) % Plt Count (150-450) K/mm3 MPV (7.5-11.0) fl Segmented Neutrophils (36.-66.) % Lymphocytes (Manual) (24-44) % Monocytes (Manual) (0.0-12.0) % Eosinophils (Manual) (0.00-3.0) % Platelet Estimate (NORMAL) RBC Morphology Sodium (137-145) mmol/L Potassium (3.5-5.1) mmol/L Chloride (98-107) mmol/L Carbon Dioxide (22-30) mmol/L Anion Gap (5-15) MEQ/L BUN (9-20) mg/dL Creatinine (0.66-1.25) mg/dL Estimated GFR ML/MIN Glucose (74-106) mg/dL Calcium (8.4-10.2) mg/dL Total Bilirubin (0.2-1.3) mg/dL AST (17-59) U/L ALT (0-50) U/L Alkaline Phosphatase (38-126) U/L Serum Total Protein (6.3-8.2) g/dL Albumin (3.5-5.0) g/dL TSH 3rd Generation 3.450 (0.47-4.68) mIU/L Urine Color (YELLOW) Urine Appearance (CLEAR) Urine pH (5-6) Ur Specific [place] (1.005-1.025) Urine Protein (Negative) Urine Ketones (NEGATIVE) Urine Blood (0-5) Srinivasan/ul Urine Nitrite (NEGATIVE) Urine Bilirubin (NEGATIVE) Urine Urobilinogen (0-1) mg/dL Ur Leukocyte Esterase (NEGATIVE) Urine WBC (Auto) (0-5) /HPF Urine RBC (Auto) (0-2) /HPF U Epithel Cells (Auto) (FEW) /HPF Urine Bacteria (Auto) (NEGATIVE) /HPF Urine Mucus (Auto) (NEGATIVE) /HPF Urine Culture Reflexed (NO) Urine Glucose (NEGATIVE) mg/dL - Progress Progress: improved Progress Note: 03/17/20 17:12 Patient reassessed. Strength improved during his ED stay. Patient articulating much more clearly at this time. He is not a candidate for TPA due to timing of onset of symptoms. CT head negative for acute intracranial pathology. Case discussed with Dr. Dunne who accepts admission to observation. Plan of care discussed with patient. He agrees to admission to [facility] for further evaluation and treatment. No aspirin administered due to aspirin allergy. IV fluids initiated. Family updated. 03/17/20 17:13 03/17/20 17:13 Counseled pt/family regarding: lab results, diagnosis, need for follow-up, rad results - Departure Departure Disposition: In-patient Admission Clinical Impression: Generalized weakness, Calcified cerebral meningioma, Confusion, Calcified granuloma of lung, Dehydration, Acute renal injury, Leukocytosis Condition: Stable Critical Care Time: No Referrals: CHANDANA DUNNE MD [Primary Care Provider] -
--- NOTE | 2020-03-17 15:24 | XRAY ---
Indication: Weakness. Warrens stroke. Multiple contiguous axial images obtained through the head without contrast. Comparison: February 28, 2020. There is again age-appropriate global atrophy, minimal periventricular degenerative micro-ischemia bilaterally, and small right frontal calcified meningioma. No acute intracranial hemorrhage, abnormal extra-axial fluid collection, or mass effect. Fourth ventricle is midline without hydrocephalus. Bony calvarium intact. Visualized paranasal sinuses and mastoid air cells are clear. Impression: Stable nonacute senile brain with again incidental right frontal calcified meningioma.
--- NOTE | 2020-03-17 15:31 | XRAY ---
Indication: Leg weakness. Pneumonia. Comparison: August 24, 2019. Portable chest demonstrates new right mid to lower lung airspace disease without consolidation/large effusion. Remaining heart and left lung unremarkable with stable apical calcified granuloma. Bony thorax intact again with mild osteopenia and degenerative changes.
[2020-03-17 15:47] LABS: ALBUMIN 4.3 g/dL (3.5-5.0); ANION GAP 14.2 MEQ/L (5-15); Calcium 9.2 mg/dL (8.4-10.2); Creatinine 1 1.5 mg/dL (0.66-1.25); EST GLOMERULAR FILTRATION RATE 46.9 ML/MIN; Hematocrit 35.3 % (42-50); Hemoglobin 11.4 gm/dl (12.5-18.0); Mean Cell Volume 82.3 fl (78-100); Mean Corpuscular Hemoglobin 26.6 pg (26-32); Mean Corpuscular Hgb Concent. 32.3 g/dl (32-36); Mean Platelet Volume 10.3 fl (7.5-11.0); Platelet Count 199 K/mm3 (150-450); Potassium 4.9 mmol/L (3.5-5.1); Red Blood Count 4.29 M/mm3 (4.1-5.6); Red Cell Distribution Width 16.5 % (11.5-14.0); Total Protein 7.5 g/dL (6.3-8.2); White Blood Count 13.6 K/mm3 (4.0-10.5)
[2020-03-17] MEDS ORDERED: Sodium Chloride 0.9% 1000 ML 1,000 ML ONE (16:13)
[2020-03-17] MEDS ORDERED: Sodium Chloride 0.9% 1000 ML 1,000 ML IV SCH ×2 (16:15→18:14)
[2020-03-17 16:27] LABS: Appearance CLEAR (CLEAR); Bilirubin NEGATIVE (NEGATIVE); Blood NEGATIVE Ery/ul (0-5); Glucose NEGATIVE (NEGATIVE); Ketones NEGATIVE (NEGATIVE); Leukocyte Esterase NEGATIVE (NEGATIVE); Mucus SLIGHT /HPF (NEGATIVE); Nitrite NEGATIVE (NEGATIVE); Protein,Urine Dip NEGATIVE (Negative); Specific Gravity 1.009 (1.005-1.025); Urobilinogen NEGATIVE mg/dL (0-1)
[2020-03-17 16:30] LABS: Eosinophil 1 % (0.00-3.0); Lymphocytes 8 % (24-44); Monocyte 11 % (0.0-12.0); Neutrophils 80 % (36.-66.); Platelet Estimate NORMAL (NORMAL); Total Cells Counted 100
[2020-03-18 06:17] LABS: Absolute Neutrophil Ct (ANC) 3.06 (1.4-6.9); BASOPHIL % 1.4 % (0.0-0.4); Basophil (Absolute #) 0.08 (0-0.4); Eosinophil % 1.9 % (0.00-5.0); Eosinophil (Absolute #) 0.11 (0-0.5); Hematocrit 32.1 % (42-50); Hemoglobin 10.3 gm/dl (12.5-18.0); Lymphocyte (Absolute #) 1.65 (1.0-4.6); Lymphocytes % 28.5 % (24.0-44.0); Mean Cell Volume 82.9 fl (78-100); Mean Corpuscular Hemoglobin 26.6 pg (26-32); Mean Corpuscular Hgb Concent. 32.1 g/dl (32-36); Monocyte (Absolute #) 0.88 (0.0-1.3); Monocytes % 15.2 % (0.0-12.0); Platelet Count 156 K/mm3 (150-450); Red Blood Count 3.87 M/mm3 (4.1-5.6); Red Cell Distribution Width 16.4 % (11.5-14.0); White Blood Count 5.8 K/mm3 (4.0-10.5)
[2020-03-18 07:02] LABS: ALBUMIN 3.5 g/dL (3.5-5.0); ALKALINE PHOSPHATASE 94 U/L (38-126); BLOOD UREA NITROGEN 17 mg/dL (9-20); CHLORIDE 106 mmol/L (98-107); Calcium 8.4 mg/dL (8.4-10.2); Carbon Dioxide 22 mmol/L (22-30); Creatinine 1 1.18 mg/dL (0.66-1.25); EST GLOMERULAR FILTRATION RATE > 60.0 ML/MIN; Glucose 100 mg/dL (74-106); Potassium 3.8 mmol/L (3.5-5.1); SGOT/AST 14 U/L (17-59); SGPT/ALT 9 U/L (0-50); SODIUM 138 mmol/L (137-145); Total Protein 6.2 g/dL (6.3-8.2)
[2020-03-18 12:00] VITALS: BP 137/64; PULSE 76; O2SAT 96
[2020-03-18] MEDS ORDERED: Flomax 0.4 MG PO SCH (14:00)
[2020-03-18] MEDS ORDERED: Cozaar 50 MG PO SCH (14:00)
[2020-03-18] MEDS ORDERED: MEDICATION INTERVENTION PO SCH (14:00)
[2020-03-18] MEDS ORDERED: hydroDIURIL 25 MG PO SCH (14:00)
[2020-03-18] MEDS ORDERED: ZYLOPRIM 100 MG PO SCH (14:00)
[2020-03-18] MEDS ORDERED: MAG-OX 400 PO SCH (14:00)
[2020-03-18] MEDS ORDERED: Lopressor 50 MG PO SCH (14:00)
[2020-03-18] MEDS ORDERED: ZOCOR 20MG PO SCH (14:00)
[2020-03-18] MEDS ORDERED: METOCLOPRAMIDE HCL 5 MG PO SCH (15:00)
[2020-03-18] MEDS ORDERED: Carafate 1 GM PO SCH (16:30)
[2020-03-18] MEDS ORDERED: Reglan 10 MG PO SCH (16:30)
[2020-03-18] MEDS ORDERED: Klor Con 10 MEQ PO SCH (22:00)
[2020-03-18] MEDS ORDERED: NORVASC 5 MG PO SCH (22:00)
[2020-03-18] MEDS ORDERED: Neurontin 100 MG PO SCH (22:00)
[2020-03-18] MEDS ORDERED: Klonopin 0.5 MG PO SCH (22:00)
[2020-03-18] MEDS ORDERED: POTASSIUM CHLORIDE 20 MEQ PO SCH (22:00)
[2020-03-19] MEDS ORDERED: Amaryl 2 MG PO SCH (08:00)
[2020-03-19] MEDS ORDERED: NON-FORMULARY ITEM (Metoprolol Tartrate [Metoprolol Tartrate] 100 MG) PO SCH (10:00)
[2020-03-19] MEDS ORDERED: BERBERINE PO SCH (10:00)
[2020-03-19] MEDS ORDERED: NON-FORMULARY ITEM (Glimepiride [Glimepiride] 1 MG) PO SCH (10:00)
[2020-03-19] MEDS ORDERED: HOPS PO SCH (10:00)
[2020-03-19] MEDS ORDERED: NON-FORMULARY ITEM (Pravastatin Sodium [Pravastatin Sodium] 20 MG) PO SCH (10:00)
[2020-03-19] MEDS ORDERED: VIT D3 VIT K PO SCH (10:00)
[2020-03-19] MEDS ORDERED: NON-FORMULARY ITEM (Magnesium Oxide [Magnesium] 400 MG) PO SCH (10:00)
[2020-03-19] MEDS ORDERED: NON-FORMULARY ITEM (Hydrochlorothiazide [Hydrochlorothiazide] 12.5 MG) PO SCH (10:00)
--- NOTE | 2020-04-16 08:46 | PCM.SSS ---
History of Present Illness - Chief Complaint Chief Complaint: weakness for 1 week History of Present Illness: is an 89-year-old male presents to our ED for evaluation of weakness. Patient lives with his daughter. Daughter states patient was well last night. However this morning upon awakening she observed that patient was confused and weak. Patient was calling his daughter his 's name. Patient was also "shaking". Daughter apparently observe patient for some time and noticed he did not improve. She left her home at approximately 2:[address] towards our hospital. Her drive was approximately 1 hour. No reported trauma. Daughter states patient has problems with chronic vomiting. No fever. Patient denies pain. Patient has had "mini strokes" in the past per daughter. Patient has no focal or lateralizing findings at this time. Symptoms have been constant. Symptoms are moderate in intensity. No specific worsening or improving factors. Patient unable to contribute to this HPI at this time due to confusion/slow response time to answer questions. Daughter v oiced no other complaints concerns at this time. Timing/Duration: today Severity: moderate Modifying Factors: Improves With: nothing Associated Symptoms: No nausea, No vomiting, No abdominal pain, No shortness of breath, No heartburn, No diaphoresis, No cough, No fever, No headaches, No loss of appetite, No malaise - Review of Systems Constitutional: Chills, Fatigue, Lethargy, Weakness, No Fever Eyes: No Symptoms Ears, Nose, & Throat: No Symptoms Respiratory: No Cough, No Short Of Breath Cardiac: No Chest Pain, No Edema, No Syncope Abdominal/Gastrointestinal: No Abdominal Pain, No Nausea, No Vomiting, No Diarrhea Genitourinary Symptoms: No Dysuria Musculoskeletal: No Back Pain, No Neck Pain Skin: No Rash Neurological: No Dizziness, No Focal Weakness, No Sensory Changes Psychological: No Symptoms Endocrine: No Symptoms Hematologic/Lymphatic: No Symptoms Immunological/Allergic: No Symptoms Medications & Allergies Home Medications: Home Medication List Allopurinol 100 mg [Zyloprim 100 mg] 100 mg PO DAILY 08/11/19 [History Confirmed 04/08/20] Amlodipine Besylate 5 mg [Norvasc 5 mg] 5 mg PO BID 08/11/19 [History Confirmed 04/08/20] Glimepiride 1 mg PO DAILY 08/11/19 [History Confirmed 04/08/20] Losartan Potassium 50 mg [Cozaar 50 MG] 50 mg PO DAILY 08/11/19 [History Confirmed 04/08/20] Pravastatin Sodium 20 mg PO DAILY 08/11/19 [History Confirmed 04/08/20] Sucralfate 1 gm [Carafate 1 GM] 1 gm PO BID 08/11/19 [History Confirmed 04/08/20] Tamsulosin HCl 0.4 mg [Flomax 0.4 MG] 0.4 mg PO DAILY 08/11/19 [History Confirmed 04/08/20] Metoclopramide HCl 5 mg PO TID 08/19/19 [History Confirmed 04/08/20] Potassium Chloride [Klor-Con M10] 20 meq PO BID 08/19/19 [History Confirmed 04/08/20] clonazePAM [Clonazepam] 0.5 mg PO BID 08/19/19 [History Confirmed 04/08/20] hydroCHLOROthiazide [Hydrochlorothiazide] 12.5 mg PO DAILY 08/19/19 [History Confirmed 04/08/20] Gabapentin 100 cap PO BID 02/28/20 [History Confirmed 04/08/20] Metoprolol Tartrate 100 mg PO DAILY #0 03/01/20 [Rx Confirmed 04/08/20] Vit D3-Vit K/Berberine/Hops [Ostera Tablet] 1 ea DAILY 03/17/20 [History Confirmed 04/08/20] Isosorbide Mononitrate 30 mg [Imdur 30 MG] 30 mg PO DAILY 04/08/20 [History Confirmed 04/08/20] Magnesium Oxide 400 mg [Mag-Ox 400] 400 mg PO 04/08/20 [History] Pantoprazole Sodium [Protonix] 40 mg PO 04/08/20 [History] Allergies/Adverse Reactions: Allergies Allergy/AdvReac Type Severity Reaction Status Date / Time aspirin AdvReac Verified 04/07/20 19:16 - Past Medical History Past Medical History: Yes Neurological History: TIA ENT History: No Pertinent History Cardiac History: Arrhythmia, High Cholesterol, Hypertension Respiratory History: Bronchitis Endocrine Medical History: Diabetes Type II Musculoskelatal History: Arthritis GI Medical History: GERD History: No Pertinent History Pyscho-Social History: Anxiety Male Reproductive Disorders: Prostate Cancer Comment: gout, 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 - Past Surgical History Past Surgical History: Yes Neuro Surgical History: No Pertinent History Cardiac History: No Pertinent History Respiratory Surgery: No Pertinent History GI Surgical History: Hemorrhoidectomy Genitourinary Surgical Hx: No Pertinent History Musculskeletal Surgical Hx: Orthopedic Surgery Male Surgical History: No Pertinent History Other Surgical History: LT ARM - Social History Smoking Status: Never smoker Exposure to second hand smoke: No Alcohol: None Drug Use: none Significant Family History: no pertinent family hx - Physical Exam General Appearance: mild distress, alert, lethargy Neurologic Exam: alert, oriented x 3, cooperative, normal mood/affect, nml cerebellar function, nml station & gait, sensation nml, No motor deficits Eye Exam: PERRL/EOMI, eyes nml inspection Ears, Nose, Throat Exam: normal ENT inspection, TMs normal, pharynx normal, moist mucous membranes Neck Exam: normal inspection, non-tender, supple, full range of motion Respiratory Exam: normal breath sounds, lungs clear, No respiratory distress Cardiovascular Exam: regular rate/rhythm, normal heart sounds, normal peripheral pulses Gastrointestinal/Abdomen Exam: soft, normal bowel sounds, No tenderness, No mass Back Exam: normal inspection, normal range of motion, No CVA tenderness, No vertebral tenderness Extremity Exam: normal inspection, normal range of motion, pelvis stable Skin Exam: normal color, warm, dry, No rash Lymphatic Exam: No adenopathy Assessment/Plan (1) UTI (urinary tract infection) Status: Acute Qualifiers: Code(s): N39.0 - URINARY TRACT INFECTION, SITE NOT SPECIFIED (2) Acute renal injury Status: Acute Code(s): N17.9 - ACUTE KIDNEY FAILURE, UNSPECIFIED (3) COPD (chronic obstructive pulmonary disease) Status: Acute (4) Confusion Status: Acute Code(s): R41.0 - DISORIENTATION, UNSPECIFIED (5) Dehydration Status: Acute Code(s): E86.0 - DEHYDRATION (6) Dizziness Status: Acute Code(s): R42 - DIZZINESS AND GIDDINESS (7) Generalized weakness Status: Acute Code(s): R53.1 - WEAKNESS Hospital Summary - Hospital Course Hospital Course: Chief Complaint Diagnosis weakness Allergies Allergy/AdvReac Type Severity Reaction Status Date / Time aspirin AdvReac Verified 04/07/20 19:16 Home Medications Medication Instructions Recorded Confirmed Last Taken Type Vit D3-Vit K/Berberine/Hops 1 ea DAILY 03/17/20 03/17/20 Unknown History [Ostera Tablet] Current Medications Discontinued Medications Generic Name Dose Route Start Last Admin Trade Name Jeri PRN Reason Stop Dose Admin Allopurinol 100 mg 03/18/20 14:00 Zyloprim 100 Mg PO 04/17/20 13:59 DAILY DRAKE Amlodipine Besylate 5 mg 03/18/20 22:00 Norvasc 5 Mg PO 04/17/20 21:59 BID DRAKE Clonazepam 0.5 mg 03/18/20 22:00 Klonopin 0.5 Mg PO 04/17/20 21:59 BID DRAKE Gabapentin 100 mg 03/18/20 22:00 Neurontin 100 Mg PO 04/17/20 21:59 BID DRAKE Glimepiride 1 mg 03/19/20 08:00 Amaryl 2 Mg PO 04/18/20 07:59 BREAKFAST DRAKE Hydrochlorothiazide 12.5 mg 03/18/20 14:00 Hydrodiuril 25 Mg PO 04/17/20 13:59 DAILY DRAKE Sodium Chloride 1,000 mls @ 75 mls/hr 03/17/20 16:15 03/17/20 16:14 Sodium Chloride 0.9% 1000 Ml IV 04/16/20 16:14 75 mls/hr .[id number] DRAKE Administration Sodium Chloride 1,000 mls @ 75 mls/hr 03/17/20 18:14 03/18/20 02:12 Sodium Chloride 0.9% 1000 Ml IV 04/16/20 18:13 75 mls/hr .[id number] DRAKE Administration Sodium Chloride Confirm 03/17/20 16:13 Sodium Chloride 0.9% 1000 Ml Administered 03/17/20 16:14 Dose 1,000 mls @ ud .ROUTE .STK-MED ONE Losartan Potassium 50 mg 03/18/20 14:00 Cozaar 50 Mg PO 04/17/20 13:59 DAILY DRAKE Magnesium Oxide 400 mg 03/18/20 14:00 Mag-Ox 400 PO 04/17/20 13:59 DAILY DRAKE Metoclopramide HCl 5 mg 03/18/20 16:30 Reglan 10 Mg PO 04/17/20 16:29 TIDAC [facility] Metoprolol Tartrate 100 mg 03/18/20 14:00 Lopressor 50 Mg PO 04/17/20 13:59 DAILY [facility] Miscellaneous Information 1 each 03/18/20 14:00 Medication Intervention PO 04/17/20 13:59 .RN TO CHECK ON [facility] Potassium Chloride 20 meq 03/18/20 22:00 Klor Con 10 Meq PO 04/17/20 21:59 BID DRAKE Simvastatin 20 mg 03/18/20 14:00 Zocor 20mg PO 04/17/20 13:59 DAILY [facility] Sucralfate 1 g 03/18/20 16:30 Carafate 1 Gm PO 04/17/20 16:29 BIDAC [facility] Tamsulosin HCl 0.4 mg 03/18/20 14:00 Flomax 0.4 Mg PO 04/17/20 13:59 DAILY DRAKE Last Vital Signs Temp 97.6 F 03/18/20 11:59 Pulse 76 03/18/20 11:59 Resp 21 03/18/20 11:59 BP 137/64 03/18/20 11:59 Pulse Ox 96 03/18/20 11:59 Allergies aspirin Adverse Reaction (Verified 04/07/20 19:16) - Vitals & Intake/Output Vital Signs: Vital Signs Temperature 97.6 F 03/18/20 11:59 Pulse Rate 76 03/18/20 11:59 Respiratory Rate 21 03/18/20 11:59 Blood Pressure 137/64 03/18/20 11:59 O2 Sat by Pulse Oximetry 96 03/18/20 11:59 - Lab Result Diagrams: 03/18/20 06:16 03/18/20 06:16 - Procedures and Test Procedures and Tests throughout Hospitalization: Therapy Orders & Screens 03/17/20 19:23 Oxygen Nasal Cannula 2 lpm Comment: Diagnosis: weakness 03/18/20 11:18 PT Eval & Treat ( Order) ROUTINE Reason for Eval:: WEAKNESS Diagnosis: weakness 03/18/20 11:34 RT Miscellaneous Order ROUTINE Comment: Physician Instructions: Reason For Exam: WEAN OXYGEN OFF Diagnosis: weakness - Discharge Discharge Date: 03/18/20 Disposition: Home, Self-Care Condition: Stable Prescriptions: No Action Tamsulosin HCl 0.4 mg [Flomax 0.4 MG] 0.4 mg PO DAILY Allopurinol 100 mg [Zyloprim 100 mg] 100 mg PO DAILY Losartan Potassium 50 mg [Cozaar 50 MG] 50 mg PO DAILY Amlodipine Besylate 5 mg [Norvasc 5 mg] 5 mg PO BID Sucralfate 1 gm [Carafate 1 GM] 1 gm PO BID Pravastatin Sodium 20 mg PO DAILY Glimepiride 1 mg PO DAILY Metoclopramide HCl 5 mg PO TID Potassium Chloride [Klor-Con M10] 20 meq PO BID hydroCHLOROthiazide [Hydrochlorothiazide] 12.5 mg PO DAILY clonazePAM [Clonazepam] 0.5 mg PO BID Gabapentin 100 cap PO BID Metoprolol Tartrate 100 mg PO DAILY #0 Vit D3-Vit K/Berberine/Hops [Ostera Tablet] 1 ea DAILY Isosorbide Mononitrate 30 mg [Imdur 30 MG] 30 mg PO DAILY Pantoprazole Sodium [Protonix] 40 mg PO Magnesium Oxide 400 mg [Mag-Ox 400] 400 mg PO Instructions: Generalized Weakness (DC) Follow up with: CHANDANA DUNNE MD [Primary Care Provider] - 03/25/20 1:45 pm (KEEP FOLLOWUP APPOINTMENT WITH DR. DUNNE AT [facility], NEXT Mar AT 1:45 PM.) Forms: Discharge Instructions
== END 2020-03-18 14:32 | disposition home or self-care (01) ==
LOC: ED 14:59 → MED SURG 18:03
PROVIDERS: ADMIT General Practice; ATTEND General Practice
DX: N39.0 Urinary tract infection, site not specified (principal); R41.0 Disorientation, unspecified; I10 Essential (primary) hypertension; E11.9 Type 2 diabetes mellitus without complications; E78.00 Pure hypercholesterolemia, unspecified; N17.9 Acute kidney failure, unspecified; J44.9 Chronic obstructive pulmonary disease, unspecified; E86.0 Dehydration; R42 Dizziness and giddiness; R53.1 Weakness; Z79.899 Other long term (current) drug therapy; Z87.898 Personal history of other specified conditions; Z85.46 Personal history of malignant neoplasm of prostate; Z86.73 Personal history of transient ischemic attack (TIA), and cerebral infarction without residual deficits
CPT/HCPCS: 36000; 36415; 70450; 71045; 80053; 81001; 82962; 84443; 84484; 85025; 93005; 93041; 93268; 94760; 94762; 96360; 97161; 99285; G0378

== ENCOUNTER 2020-03-19 21:22 | Emergency (ER) | payer MEDICARE ==
--- NOTE | 2020-03-19 21:46 | ERPHSYRPT ---
- History of Present Illness Time Seen by Provider: 03/19/20 21:35 Patient Subjective Stated Complaint: pt c/o dizziness, weakness and numbness to fingers and toes Triage Nursing Assessment: pt c/o dizziness, weakness and numbness to fingers and toes. Pt states, "I got dizzy would've fell if my duaghter hadn't been there to catch me". Numbness to fingers and toes are not new, has had it before , pt has hx of diabetes. Physician History: 89 years old male with history of hypertension, hyperlipidemia, diabetic who was recently admitted for generalized weakness fatigue , discharged yesterday presented back in the ER with generalized weakness fatigue and difficulty ambulation with tendency to fall earlier prior to arrival when his daughter was able to catch him. Patient feels weak all over with no energy to do his routine activities. Patient report this is been going on for quite some time and recently getting worse and is having a downhill course for the last 2 months. He denies any focal weakness but does have numbness and tingling sensation in the fingertips and toes. Also reports feeling dizzy and lightheaded on standing up. Denies any chest pain palpitations or shortness of breath. No abdominal pain nausea or vomiting. Timing/Duration: week(s), intermittent, worse Severity: moderate Deficits: falling, off balance Baseline/Normal Cognition: alert oriented x 3 Current Cognition: alert oriented x 3 Associated Symptoms: fatigue, numbness/tingling in legs/feet, paresthesia, trouble walking, No seizures, No slurred speech, No vision changes, No chest pain, No headache Allergies/Adverse Reactions: aspirin Adverse Reaction (Verified 03/19/20 21:41) Home Medications: Allopurinol 100 mg [Zyloprim 100 mg] 100 mg PO DAILY 08/11/19 [History] Amlodipine Besylate 5 mg [Norvasc 5 mg] 5 mg PO BID 08/11/19 [History] Glimepiride 1 mg PO DAILY 08/11/19 [History] Losartan Potassium 50 mg [Cozaar 50 MG] 50 mg PO DAILY 08/11/19 [History] Pravastatin Sodium 20 mg PO DAILY 08/11/19 [History] Sucralfate 1 gm [Carafate 1 GM] 1 gm PO BID 08/11/19 [History] Tamsulosin HCl 0.4 mg [Flomax 0.4 MG] 0.4 mg PO DAILY 08/11/19 [History] Magnesium Oxide [Magnesium] 400 mg PO DAILY 08/19/19 [History] Metoclopramide HCl 5 mg PO TID 08/19/19 [History] Potassium Chloride [Klor-Con M10] 20 meq PO BID 08/19/19 [History] clonazePAM [Clonazepam] 0.5 mg PO BID 08/19/19 [History] hydroCHLOROthiazide [Hydrochlorothiazide] 12.5 mg PO DAILY 08/19/19 [History] Gabapentin 100 cap PO BID 02/28/20 [History] Vit D3-Vit K/Berberine/Hops [Ostera Tablet] 1 ea DAILY 03/17/20 [History] Hx Tetanus, Diphtheria Vaccination/Date Given: Yes Hx Influenza Vaccination/Date Given: No Hx Pneumococcal Vaccination/Date Given: No Immunizations Up to Date: Yes Travel Risk - International Travel Have you traveled outside of the country in past 3 weeks: No - Coronavirus Screening Are you exhibiting any of the following symptoms?: No Close contact with a COVID-19 positive Pt in past 14-21 Days: No - Review of Systems Constitutional: Fatigue, Weakness Eyes: No Symptoms Ears, Nose, & Throat: No Symptoms Respiratory: No Symptoms Cardiac: No Symptoms Abdominal/Gastrointestinal: No Symptoms Genitourinary Symptoms: No Symptoms Musculoskeletal: Myalgias Neurological: Dizziness, Sensory Changes Psychological: No Symptoms Endocrine: No Symptoms Hematologic/Lymphatic: No Symptoms Immunological/Allergic: No Symptoms - Past Medical History Pertinent Past Medical History: Yes Neurological History: TIA ENT History: No Pertinent History Cardiac History: Arrhythmia, High Cholesterol, Hypertension Respiratory History: Bronchitis Endocrine Medical History: Diabetes Type II Musculoskeletal History: Arthritis GI Medical History: GERD History: No Pertinent History Psycho-Social History: Anxiety Male Reproductive Disorders: Prostate Cancer Other Medical History: gout, 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 - Past Surgical History Past Surgical History: Yes Neuro Surgical History: No Pertinent History Cardiac: No Pertinent History Respiratory: No Pertinent History Gastrointestinal: Hemorrhoidectomy Genitourinary: No Pertinent History Musculoskeletal: Orthopedic Surgery Male Surgical History: No Pertinent History Other Surgical History: LT ARM - Social History Smoking Status: Former smoker Exposure to second hand smoke: No Drug Use: none Patient Lives Alone: No Significant Family History: no pertinent family hx - Nursing Vital Signs Nursing Vital Signs: Initial Vital Signs Temperature 99.1 F 03/19/20 21:25 Pulse Rate 68 03/19/20 21:25 Respiratory Rate 20 03/19/20 21:25 Blood Pressure 149/76 03/19/20 21:25 O2 Sat by Pulse Oximetry 99 03/19/20 21:25 Pain Scale Pain Intensity 0 - Daljit Coma Scale Best Eye Response (Lyons): (4) open spontaneously Best Verbal Response (Lyons): (5) oriented Best Motor Response (Lyons): (6) obeys commands Lyons Total: 15 - Physical Exam General Appearance: no apparent distress, alert Eye Exam: bilateral eye: normal inspection, PERRL, EOMI Ears, Nose, Throat Exam: normal ENT inspection, TMs normal, pharynx normal Neck Exam: normal inspection, non-tender, supple, full range of motion Respiratory: normal breath sounds, lungs clear Cardiovascular: regular rate/rhythm, normal heart sounds Gastrointestinal: soft, normal bowel sounds, No tenderness Back Exam: normal inspection Extremity Exam: normal inspection, normal range of motion, pelvis stable 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, oriented x 3, cooperative, other (Global weakness but no focal weakness.) 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, hearing deficit (R), hearing deficit (L) Coordination/Gait: normal finger to nose Skin Exam: normal color SpO2 Interpretation: normal SpO2: 99 O2 Delivery: Room Air - Course Nursing assessment & vital signs reviewed: Yes EKG Interpreted by Me: RATE (63), Sinus Rhythm, NORMAL AXIS, NORMAL INTERVALS, NORMAL QRS, Other (Nonspecific T wave changes) Ordered Tests: Active Orders 24 hr Category Date Time Status EKG-ER Only STAT Care 03/19/20 21:54 Completed IV Insertion STAT Care 03/19/20 21:54 Completed CHEST 1 VIEW (PORTABLE) Stat Exams 03/19/20 21:54 Taken CBC W DIFF Stat Lab 03/19/20 21:55 Completed CMP Stat Lab 03/19/20 21:55 Completed Lactic Acid Stat Lab 03/19/20 22:10 Completed MAG [MAGNESIUM] Stat Lab 03/19/20 21:55 Completed TROPONIN Q3H Lab 03/19/20 21:55 Completed TROPONIN Q3H Lab 03/20/20 01:00 Ordered TROPONIN Q3H Lab 03/20/20 04:00 Ordered TROPONIN Q3H Lab 03/20/20 07:00 Ordered TROPONIN Q3H Lab 03/20/20 10:00 Ordered TSH [TSH, 3RD Generation] Stat Lab 03/19/20 21:55 Completed UA W/RFX UR CULTURE Stat Lab 03/19/20 23:05 Completed Medication Summary Discontinued Medications Generic Name Dose Route Start Last Admin Trade Name Jeri PRN Reason Stop Dose Admin Sodium Chloride 1,000 mls @ 500 mls/hr 03/19/20 21:54 03/19/20 22:19 Sodium Chloride 0.9% 1000 Ml IV 03/19/20 23:53 500 mls/hr .Q2H STA Administration Sodium Chloride Confirm 03/19/20 22:17 Sodium Chloride 0.9% 1000 Ml Administered 03/19/20 22:18 Dose 1,000 mls @ ud .ROUTE .STK-MED ONE Lab/Rad Data: Laboratory Result Diagrams 03/19/20 21:55 03/19/20 21:55 Laboratory Results 03/19/20 03/19/20 03/19/20 Range/Units 23:05 22:10 21:55 WBC (4.0-10.5) K/mm3 RBC (4.1-5.6) M/mm3 Hgb (12.5-18.0) gm/dl Hct (42-50) % MCV (78-100) fl MCH (26-32) pg MCHC (32-36) g/dl RDW (11.5-14.0) % Plt Count (150-450) K/mm3 MPV (7.5-11.0) fl Gran % (36.0-66.0) % Eos # (Auto) (0-0.5) Absolute Lymphs (auto) (1.0-4.6) Absolute Monos (auto) (0.0-1.3) Lymphocytes % (24.0-44.0) % Monocytes % (0.0-12.0) % Eosinophils % (0.00-5.0) % Basophils % (0.0-0.4) % Absolute Granulocytes (1.4-6.9) Basophils # (0-0.4) Sodium (137-145) mmol/L Potassium (3.5-5.1) mmol/L Chloride (98-107) mmol/L Carbon Dioxide (22-30) mmol/L Anion Gap (5-15) MEQ/L BUN (9-20) mg/dL Creatinine (0.66-1.25) mg/dL Estimated GFR ML/MIN Glucose (74-106) mg/dL Lactic Acid 1.3 (0.4-2.0) Calcium (8.4-10.2) mg/dL Magnesium (1.6-2.3) mg/dL Total Bilirubin (0.2-1.3) mg/dL AST (17-59) U/L ALT (0-50) U/L Alkaline Phosphatase (38-126) U/L Troponin I (0.000-0.034) ng/mL Serum Total Protein (6.3-8.2) g/dL Albumin (3.5-5.0) g/dL TSH 3rd Generation 4.950 H (0.47-4.68) mIU/L Urine Color YELLOW (YELLOW) Urine Appearance CLEAR (CLEAR) Urine pH 7.0 (5-6) Ur Specific [place] 1.009 (1.005-1.025) Urine Protein NEGATIVE (Negative) Urine Ketones NEGATIVE (NEGATIVE) Urine Blood NEGATIVE (0-5) Srinivasan/ul Urine Nitrite NEGATIVE (NEGATIVE) Urine Bilirubin NEGATIVE (NEGATIVE) Urine Urobilinogen NEGATIVE (0-1) mg/dL Ur Leukocyte Esterase NEGATIVE (NEGATIVE) Urine WBC (Auto) NONE (0-5) /HPF Urine RBC (Auto) NONE (0-2) /HPF U Epithel Cells (Auto) NONE (FEW) /HPF Urine Bacteria (Auto) NONE (NEGATIVE) /HPF Urine Mucus (Auto) SLIGHT (NEGATIVE) /HPF Urine Culture Reflexed NO (NO) Urine Glucose NEGATIVE (NEGATIVE) mg/dL 03/19/20 03/19/20 03/19/20 Range/Units 21:55 21:55 21:55 WBC (4.0-10.5) K/mm3 RBC (4.1-5.6) M/mm3 Hgb (12.5-18.0) gm/dl Hct (42-50) % MCV (78-100) fl MCH (26-32) pg MCHC (32-36) g/dl RDW (11.5-14.0) % Plt Count (150-450) K/mm3 MPV (7.5-11.0) fl Gran % (36.0-66.0) % Eos # (Auto) (0-0.5) Absolute Lymphs (auto) (1.0-4.6) Absolute Monos (auto) (0.0-1.3) Lymphocytes % (24.0-44.0) % Monocytes % (0.0-12.0) % Eosinophils % (0.00-5.0) % Basophils % (0.0-0.4) % Absolute Granulocytes (1.4-6.9) Basophils # (0-0.4) Sodium 138 (137-145) mmol/L Potassium 3.8 (3.5-5.1) mmol/L Chloride 104 (98-107) mmol/L Carbon Dioxide 24 (22-30) mmol/L Anion Gap 13.3 (5-15) MEQ/L BUN 18 (9-20) mg/dL Creatinine 1.30 H (0.66-1.25) mg/dL Estimated GFR 55.4 ML/MIN Glucose 76 (74-106) mg/dL Lactic Acid (0.4-2.0) Calcium 9.1 (8.4-10.2) mg/dL Magnesium 1.9 (1.6-2.3) mg/dL Total Bilirubin 0.60 (0.2-1.3) mg/dL AST 18 (17-59) U/L ALT 12 (0-50) U/L Alkaline Phosphatase 89 (38-126) U/L Troponin I < 0.012 (0.000-0.034) ng/mL Serum Total Protein 7.2 (6.3-8.2) g/dL Albumin 4.1 (3.5-5.0) g/dL TSH 3rd Generation (0.47-4.68) mIU/L Urine Color (YELLOW) Urine Appearance (CLEAR) Urine pH (5-6) Ur Specific [place] (1.005-1.025) Urine Protein (Negative) Urine Ketones (NEGATIVE) Urine Blood (0-5) Srinivasan/ul Urine Nitrite (NEGATIVE) Urine Bilirubin (NEGATIVE) Urine Urobilinogen (0-1) mg/dL Ur Leukocyte Esterase (NEGATIVE) Urine WBC (Auto) (0-5) /HPF Urine RBC (Auto) (0-2) /HPF U Epithel Cells (Auto) (FEW) /HPF Urine Bacteria (Auto) (NEGATIVE) /HPF Urine Mucus (Auto) (NEGATIVE) /HPF Urine Culture Reflexed (NO) Urine Glucose (NEGATIVE) mg/dL 03/19/20 Range/Units 21:55 WBC 5.5 (4.0-10.5) K/mm3 RBC 3.95 L (4.1-5.6) M/mm3 Hgb 10.4 L (12.5-18.0) gm/dl Hct 32.9 L (42-50) % MCV 83.3 (78-100) fl MCH 26.3 (26-32) pg MCHC 31.6 L (32-36) g/dl RDW 16.7 H (11.5-14.0) % Plt Count 179 (150-450) K/mm3 MPV 10.2 (7.5-11.0) fl Gran % 44.1 (36.0-66.0) % Eos # (Auto) 0.13 (0-0.5) Absolute Lymphs (auto) 1.79 (1.0-4.6) Absolute Monos (auto) 1.10 (0.0-1.3) Lymphocytes % 32.7 (24.0-44.0) % Monocytes % 20.1 H (0.0-12.0) % Eosinophils % 2.4 (0.00-5.0) % Basophils % 0.7 (0.0-0.4) % Absolute Granulocytes 2.41 (1.4-6.9) Basophils # 0.04 (0-0.4) Sodium (137-145) mmol/L Potassium (3.5-5.1) mmol/L Chloride (98-107) mmol/L Carbon Dioxide (22-30) mmol/L Anion Gap (5-15) MEQ/L BUN (9-20) mg/dL Creatinine (0.66-1.25) mg/dL Estimated GFR ML/MIN Glucose (74-106) mg/dL Lactic Acid (0.4-2.0) Calcium (8.4-10.2) mg/dL Magnesium (1.6-2.3) mg/dL Total Bilirubin (0.2-1.3) mg/dL AST (17-59) U/L ALT (0-50) U/L Alkaline Phosphatase (38-126) U/L Troponin I (0.000-0.034) ng/mL Serum Total Protein (6.3-8.2) g/dL Albumin (3.5-5.0) g/dL TSH 3rd Generation (0.47-4.68) mIU/L Urine Color (YELLOW) Urine Appearance (CLEAR) Urine pH (5-6) Ur Specific [place] (1.005-1.025) Urine Protein (Negative) Urine Ketones (NEGATIVE) Urine Blood (0-5) Srinivasan/ul Urine Nitrite (NEGATIVE) Urine Bilirubin (NEGATIVE) Urine Urobilinogen (0-1) mg/dL Ur Leukocyte Esterase (NEGATIVE) Urine WBC (Auto) (0-5) /HPF Urine RBC (Auto) (0-2) /HPF U Epithel Cells (Auto) (FEW) /HPF Urine Bacteria (Auto) (NEGATIVE) /HPF Urine Mucus (Auto) (NEGATIVE) /HPF Urine Culture Reflexed (NO) Urine Glucose (NEGATIVE) mg/dL - Progress Progress: improved, re-examined Progress Note: 03/20/20 00:07 89 years old is evaluated for generalized weakness fatigue/lightheadedness. Is given a bolus of fluid. Nonfocal neuro exam grossly but has global weakness. Has normal white count, grossly unremarkable chemistries. No UTI. No acute infiltrative process in the chest x-ray. Lungs bilateral clear. Patient is not short of breath. Does not have any toxic appearance. Orthostatics are negative. She has subjective feeling of numbness in the fingers and toenails which could be related to diabetes mellitus but no proximal numbness or weakness. I believe patient has deconditioning and would benefit with therapy. I have discussed with daughter about in-home home health versus intermediate placement but patient does not want to go to intermediate. I have advised to use walker all the time for ambulation to avoid a fall or head injury. I do not think patient needs to be admitted again as there is no acute abnormality but lassiter s chronic deconditioning. Discussed signs symptoms of worsening needing return to ER which daughter/patient seemed understanding. Stable for discharge. 03/20/20 00:10 Counseled pt/family regarding: lab results, diagnosis, need for follow-up, rad results - Departure Departure Disposition: Home Clinical Impression: Generalized weakness Condition: Stable Critical Care Time: No Referrals: CHANDANA DUNNE MD [Primary Care Provider] - (Call in 1 day for reevaluation) Instructions: Generalized Weakness (DC) Additional Instructions: Use walker all the time for ambulation. Follow-up with primary care for reevaluation. Return to ER for worsening.
[2020-03-19] MEDS ORDERED: Sodium Chloride 0.9% 1000 ML 1,000 ML IV STA (21:54)
[2020-03-19 22:12] LABS: Absolute Neutrophil Ct (ANC) 2.41 (1.4-6.9); BASOPHIL % 0.7 % (0.0-0.4); Basophil (Absolute #) 0.04 (0-0.4); Eosinophil % 2.4 % (0.00-5.0); Eosinophil (Absolute #) 0.13 (0-0.5); Hematocrit 32.9 % (42-50); Hemoglobin 10.4 gm/dl (12.5-18.0); Lymphocyte (Absolute #) 1.79 (1.0-4.6); Lymphocytes % 32.7 % (24.0-44.0); Mean Cell Volume 83.3 fl (78-100); Mean Corpuscular Hemoglobin 26.3 pg (26-32); Mean Corpuscular Hgb Concent. 31.6 g/dl (32-36); Mean Platelet Volume 10.2 fl (7.5-11.0); Monocytes % 20.1 % (0.0-12.0); Neutrophil % 44.1 % (36.0-66.0); Platelet Count 179 K/mm3 (150-450); Red Blood Count 3.95 M/mm3 (4.1-5.6); Red Cell Distribution Width 16.7 % (11.5-14.0); White Blood Count 5.5 K/mm3 (4.0-10.5)
[2020-03-19] MEDS ORDERED: Sodium Chloride 0.9% 1000 ML 1,000 ML ONE (22:17)
[2020-03-19 22:19] LABS: ALBUMIN 4.1 g/dL (3.5-5.0); ANION GAP 13.3 MEQ/L (5-15); BILIRUBIN,TOTAL 0.6 mg/dL (0.2-1.3); Calcium 9.1 mg/dL (8.4-10.2); Creatinine 1 1.3 mg/dL (0.66-1.25); Potassium 3.8 mmol/L (3.5-5.1); Total Protein 7.2 g/dL (6.3-8.2)
[2020-03-19 23:23] LABS: Appearance CLEAR (CLEAR); Bilirubin NEGATIVE (NEGATIVE); Blood NEGATIVE Ery/ul (0-5); Glucose NEGATIVE (NEGATIVE); Ketones NEGATIVE (NEGATIVE); Leukocyte Esterase NEGATIVE (NEGATIVE); Mucus SLIGHT /HPF (NEGATIVE); Nitrite NEGATIVE (NEGATIVE); Protein,Urine Dip NEGATIVE (Negative); Specific Gravity 1.009 (1.005-1.025); Urobilinogen NEGATIVE mg/dL (0-1)
[2020-03-19 23:42] VITALS: BP 132/65
[2020-03-20 00:09] VITALS: PULSE 67; O2SAT 99
--- NOTE | 2020-03-20 08:35 | XRAY ---
Indication: Weakness. Comparison: March 17, 2020. Portable chest demonstrates mild clearing right mid to lower lung airspace disease with minimal residual. Remaining heart and lungs unremarkable. No new cardiopulmonary abnormalities.
== END 2020-03-20 00:19 | disposition home or self-care (01) ==
LOC: ED 21:22
DX: R53.1 Weakness (principal); R42 Dizziness and giddiness; I10 Essential (primary) hypertension; E78.5 Hyperlipidemia, unspecified; E78.00 Pure hypercholesterolemia, unspecified; E11.9 Type 2 diabetes mellitus without complications; F41.9 Anxiety disorder, unspecified; Z79.899 Other long term (current) drug therapy
CPT/HCPCS: 36000; 36415; 71045; 80053; 81001; 83605; 83735; 84443; 84484; 85025; 93005; 96360; 99284

== ENCOUNTER 2020-04-07 19:12 | Observation (INO) | payer MEDICARE ==
--- NOTE | 2020-04-07 20:00 | ERPHSYRPT ---
- History of Present Illness Time Seen by Provider: 04/07/20 19:20 Historian: patient Exam Limitations: no limitations Patient Subjective Stated Complaint: "I have this pain in my chest that feels like someone is stabbing me." Triage Nursing Assessment: 89 y/o M presented with intermittent right sided chest pain onset three days ago. pain is stabbing in nature. Pt reported pain intermittently worsens. Pt denied alleviating or aggravating factors. Pt reported vomiting today without constipation or diarrhea. Pt denied headache, visual/auditory disturbances. Pt denied any history of MT or stent placement. Pupils 4mm brisk bilateral reaction. Oral mucosa pink/moist. Neck supple non- tender without lymphadenopathy. Symmetrical chest expansion. Heart tones bradycardic with regular S1 and S2 without S3, S4, murmur, or gallop. Lungs clear with adequate airflow. +2 bilateral radial pulses. Abdomen soft non- distended with bowel sounds present in all quadrants. tenderness to palpation in the URQ/ULQ. No palpable organomegally. No noted dependent edema. Physician History: Patient is 89-year-old male presents to our ED with complaints of right-sided chest pain. Symptoms started 3 days ago. Symptoms have been intermittent. Pain described as a stabbing intermittent sensation. Patient went to [facility] yesterday. Patient had a complete work-up including imaging studies that were reportedly negative. Patient is here today with recurrence of his chest pain. Patient vomited once. No history of cardiac stents or MT. Symptoms are moderate in intensity. No specific worsening or improving factors. Patient voices no other concerns at this time. Timing/Duration: day(s) (3 days) Activities at Onset: none Quality: stabbing Location: substernal (Right chest radiates to left chest.) Severity of Pain-Max: moderate Severity of Pain-Current: mild Modifying Factors: Improves With: nothing Associated Symptoms: vomiting, No shortness of breath, No dizziness Nitro Today/Relief: no nitro taken today Aspirin Treatment Today: no aspirin today (Patient has an allergy to aspirin.) Allergies/Adverse Reactions: aspirin Adverse Reaction (Verified 04/07/20 19:16) Home Medications: Allopurinol 100 mg [Zyloprim 100 mg] 100 mg PO DAILY 08/11/19 [History] Amlodipine Besylate 5 mg [Norvasc 5 mg] 5 mg PO BID 08/11/19 [History] Glimepiride 1 mg PO DAILY 08/11/19 [History] Losartan Potassium 50 mg [Cozaar 50 MG] 50 mg PO DAILY 08/11/19 [History] Pravastatin Sodium 20 mg PO DAILY 08/11/19 [History] Sucralfate 1 gm [Carafate 1 GM] 1 gm PO BID 08/11/19 [History] Tamsulosin HCl 0.4 mg [Flomax 0.4 MG] 0.4 mg PO DAILY 08/11/19 [History] Metoclopramide HCl 5 mg PO TID 08/19/19 [History] Potassium Chloride [Klor-Con M10] 20 meq PO BID 08/19/19 [History] clonazePAM [Clonazepam] 0.5 mg PO BID 08/19/19 [History] hydroCHLOROthiazide [Hydrochlorothiazide] 25 mg PO DAILY 08/19/19 [History] Gabapentin 100 cap PO BID 02/28/20 [History] Vit D3-Vit K/Berberine/Hops [Ostera Tablet] 1 ea DAILY 03/17/20 [History] Hx Tetanus, Diphtheria Vaccination/Date Given: Yes Hx Influenza Vaccination/Date Given: No Hx Pneumococcal Vaccination/Date Given: No Travel Risk - International Travel Have you traveled outside of the country in past 3 weeks: No - Coronavirus Screening Are you exhibiting any of the following symptoms?: No Close contact with a COVID-19 positive Pt in past 14-21 Days: No - Review of Systems Constitutional: No Symptoms, No Fever, No Chills Eyes: No Symptoms Ears, Nose, & Throat: No Symptoms Respiratory: No Symptoms, No Cough, No Dyspnea Cardiac: No Symptoms, No Chest Pain, No Edema, No Syncope Abdominal/Gastrointestinal: No Symptoms, No Abdominal Pain, No Nausea, No Vomiting, No Diarrhea Genitourinary Symptoms: No Symptoms, No Dysuria Musculoskeletal: No Symptoms, No Back Pain, No Neck Pain Skin: No Symptoms, No Rash Neurological: No Symptoms, No Dizziness, No Focal Weakness, No Sensory Changes Psychological: No Symptoms Endocrine: No Symptoms Hematologic/Lymphatic: No Symptoms Immunological/Allergic: No Symptoms All Other Systems: Reviewed and Negative - Past Medical History Pertinent Past Medical History: Yes Neurological History: TIA ENT History: No Pertinent History Cardiac History: Arrhythmia, High Cholesterol, Hypertension Respiratory History: Bronchitis Endocrine Medical History: Diabetes Type II Musculoskeletal History: Arthritis GI Medical History: GERD History: No Pertinent History Psycho-Social History: Anxiety Male Reproductive Disorders: Prostate Cancer Other Medical History: gout, 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 - Past Surgical History Past Surgical History: Yes Neuro Surgical History: No Pertinent History Cardiac: No Pertinent History Respiratory: No Pertinent History Gastrointestinal: Hemorrhoidectomy Genitourinary: No Pertinent History Musculoskeletal: Orthopedic Surgery Male Surgical History: No Pertinent History Other Surgical History: LT ARM - Social History Smoking Status: Former smoker Exposure to second hand smoke: No Drug Use: none Patient Lives Alone: No Significant Family History: no pertinent family hx - Nursing Vital Signs Nursing Vital Signs: Initial Vital Signs Temperature 98.9 F 04/07/20 19:12 Pulse Rate 60 04/07/20 19:12 Respiratory Rate 12 04/07/20 19:12 Blood Pressure 101/55 04/07/20 19:12 O2 Sat by Pulse Oximetry 97 04/07/20 19:12 Pain Scale Pain Intensity 8 - Physical Exam General Appearance: no apparent distress, alert Eye Exam: PERRL/EOMI, eyes nml inspection Ears, Nose, Throat Exam: normal ENT inspection, moist mucous membranes Neck Exam: normal inspection, non-tender, supple, full range of motion Respiratory Exam: normal breath sounds, lungs clear, No respiratory distress Cardiovascular Exam: regular rate/rhythm, normal heart sounds Gastrointestinal/Abdomen Exam: soft, No tenderness, No mass Back Exam: normal inspection, No CVA tenderness, No vertebral tenderness Extremity Exam: normal inspection, normal range of motion Neurologic Exam: alert, oriented x 3, cooperative, normal mood/affect, sensation nml, No motor deficits Skin Exam: normal color, warm, dry SpO2 Interpretation: normal SpO2: 97 O2 Delivery: Room Air - Course Nursing assessment & vital signs reviewed: Yes EKG Interpreted by Me: RATE (59), Sinus Rhythm, NORMAL AXIS, NORMAL INTERVALS - Radiology Exams Chest X-ray Interpretation: Teleradiologist Report (New stable calcified granulomas. Otherwise nonacute chest x-ray.) Ordered Tests: Active Orders 24 hr Category Date Time Status Biological Science Technician STAT Care 04/07/20 19:41 Active EKG-ER Only STAT Care 04/07/20 19:40 Active IV Insertion STAT Care 04/07/20 19:40 Active Pulse Oximetry (ED) STAT Care 04/07/20 19:40 Active CHEST 1 VIEW (PORTABLE) Stat Exams 04/07/20 19:42 Taken AMYLASE Stat Lab 04/07/20 20:10 Completed CBC W DIFF Stat Lab 04/07/20 20:10 Completed CMP Stat Lab 04/07/20 20:10 Completed D-DIMER QUANTITATIVE Stat Lab 04/07/20 20:10 Completed LIPASE Stat Lab 04/07/20 20:10 Completed Manual Differential NC Stat Lab 04/07/20 20:10 Completed NT PRO BNP Stat Lab 04/07/20 20:10 Completed TROPONIN Q3H Lab 04/07/20 20:10 Completed TROPONIN Q3H Lab 04/07/20 23:15 Ordered TROPONIN Q3H Lab 04/08/20 02:15 Ordered TROPONIN Q3H Lab 04/08/20 05:15 Ordered TROPONIN Q3H Lab 04/08/20 08:15 Ordered Transfer Order Routine Transfer 04/07/20 Ordered Lab/Rad Data: Laboratory Result Diagrams 04/07/20 20:10 04/07/20 20:10 Laboratory Results 04/07/20 04/07/20 04/07/20 Range/Units 20:10 20:10 20:10 WBC (4.0-10.5) K/mm3 RBC (4.1-5.6) M/mm3 Hgb (12.5-18.0) gm/dl Hct (42-50) % MCV (78-100) fl MCH (26-32) pg MCHC (32-36) g/dl RDW (11.5-14.0) % Plt Count (150-450) K/mm3 MPV (7.5-11.0) fl Absolute Granulocytes (1.4-6.9) D-Dimer 509 H* (215-500) ng/mL Sodium 134 L (137-145) mmol/L Potassium 4.2 (3.5-5.1) mmol/L Chloride 103 (98-107) mmol/L Carbon Dioxide 23 (22-30) mmol/L Anion Gap 12.9 (5-15) MEQ/L BUN 21 H (9-20) mg/dL Creatinine 1.90 H (0.66-1.25) mg/dL Estimated GFR 35.7 ML/MIN Glucose 97 (74-106) mg/dL Calcium 8.8 (8.4-10.2) mg/dL Total Bilirubin 0.50 (0.2-1.3) mg/dL AST 15 L (17-59) U/L ALT 10 (0-50) U/L Alkaline Phosphatase 93 (38-126) U/L Troponin I < 0.012 (0.000-0.034) ng/mL NT-Pro-B Natriuret Pep 1550 (0-1800) pg/mL Serum Total Protein 6.6 (6.3-8.2) g/dL Albumin 3.8 (3.5-5.0) g/dL Amylase 72 (30-110) U/L Lipase 43 (23-300) U/L 04/07/20 Range/Units 20:10 WBC 5.1 (4.0-10.5) K/mm3 RBC 3.60 L (4.1-5.6) M/mm3 Hgb 9.6 L (12.5-18.0) gm/dl Hct 30.3 L (42-50) % MCV 84.2 (78-100) fl MCH 26.7 (26-32) pg MCHC 31.7 L (32-36) g/dl RDW 16.3 H (11.5-14.0) % Plt Count 152 (150-450) K/mm3 MPV 10.6 (7.5-11.0) fl Absolute Granulocytes 2.30 (1.4-6.9) D-Dimer (215-500) ng/mL Sodium (137-145) mmol/L Potassium (3.5-5.1) mmol/L Chloride (98-107) mmol/L Carbon Dioxide (22-30) mmol/L Anion Gap (5-15) MEQ/L BUN (9-20) mg/dL Creatinine (0.66-1.25) mg/dL Estimated GFR ML/MIN Glucose (74-106) mg/dL Calcium (8.4-10.2) mg/dL Total Bilirubin (0.2-1.3) mg/dL AST (17-59) U/L ALT (0-50) U/L Alkaline Phosphatase (38-126) U/L Troponin I (0.000-0.034) ng/mL NT-Pro-B Natriuret Pep (0-1800) pg/mL Serum Total Protein (6.3-8.2) g/dL Albumin (3.5-5.0) g/dL Amylase (30-110) U/L Lipase (23-300) U/L - Progress Progress: improved Air Movement: good Progress Note: 04/07/20 21:50 She feels well. We will admit patient for acute coronary syndrome cardiac rule out. Work-up reveals acute renal injury and anemia. D-dimer elevated however age corrected d-dimer is still within normal limits and does not indicate a CTA of chest. Plan of care discussed with patient. He agrees to admission to [facility] for further evaluation and treatment. Case discussed with Dr. Dunne who accepts admission to observation. Blood Culture(s) Obtained: No Antibiotics given: No Discussed with .: Nighat Will see patient in: hospital (observation) Counseled pt/family regarding: lab results, diagnosis, rad results - Departure Departure Disposition: Observation Clinical Impression: ACS (acute coronary syndrome), Anemia, Acute renal injury, Lung granuloma Condition: Stable Critical Care Time: No Referrals: CHANDANA DUNNE MD [Primary Care Provider] -
[2020-04-07 20:30] LABS: Hematocrit 30.3 % (42-50); Hemoglobin 9.6 gm/dl (12.5-18.0); Mean Cell Volume 84.2 fl (78-100); Mean Corpuscular Hemoglobin 26.7 pg (26-32); Mean Corpuscular Hgb Concent. 31.7 g/dl (32-36); Mean Platelet Volume 10.6 fl (7.5-11.0); Platelet Count 152 K/mm3 (150-450); Red Cell Distribution Width 16.3 % (11.5-14.0); White Blood Count 5.1 K/mm3 (4.0-10.5)
[2020-04-07 20:53] LABS: ALBUMIN 3.8 g/dL (3.5-5.0); ANION GAP 12.9 MEQ/L (5-15); BILIRUBIN,TOTAL 0.5 mg/dL (0.2-1.3); Calcium 8.8 mg/dL (8.4-10.2); Creatinine 1 1.9 mg/dL (0.66-1.25); EST GLOMERULAR FILTRATION RATE 35.7 ML/MIN; Potassium 4.2 mmol/L (3.5-5.1); Total Protein 6.6 g/dL (6.3-8.2)
--- NOTE | 2020-04-07 22:25 | XRAY ---
Exam: AP 80 semi-upright portable chest film from 04/07/2020. Comparison: AP portable chest film from 03/19/2020 and 03/17/2020. Indication: Chest pain. Findings: The transverse heart size is normal. Mild tortuosity of both the ascending and descending thoracic aorta is seen. A few small bilateral calcified granulomas are again seen. Prior subtle infiltrate within the right lower lung field has resolved in the interval. Currently, there is no evidence of active lung disease. No central vascular congestion, pneumothorax, or pleural fluid is seen. 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 Impression: 1. Prior subtle airspace disease within the right mid to lower lung field appears to have completely resolved in the interval representing improvement. 2. No acute cardiopulmonary disease is seen. I again see a few stable bilateral small calcified granulomas.
[2020-04-07 23:17] LABS: Eosinophil 4 % (0.00-3.0); Lymphocytes 33 % (24-44); Monocyte 15 % (0.0-12.0); Neutrophils 48 % (36.-66.); Platelet Estimate NORMAL (NORMAL); Total Cells Counted 100
[2020-04-07] MEDS ORDERED: Senokot-S Tablet PO PRN (23:34)
[2020-04-07] MEDS ORDERED: Zofran 4 MG/2 ML VIAL IV PRN (23:34)
[2020-04-07] MEDS ORDERED: MILK OF MAGNESIA 30 ML PO PRN (23:34)
[2020-04-07] MEDS ORDERED: MAALOX ES 30 ML UNIT DOSE PO PRN (23:34)
[2020-04-07] MEDS ORDERED: TYLENOL 325 MG PO PRN (23:34)
[2020-04-08 04:31] LABS: Cholesterol 100 mg/dL (50-200); HDL CHOLESTEROL 25 mg/dL (40-60); LDL, DIRECT 47 mg/dL (30-100); Risk Ratio 3.9; TRIGLYCERIDE 129 mg/dL (30-150)
[2020-04-08 04:34] LABS: TROPONIN < 0.012 ng/mL (0.000-0.034)
[2020-04-08] MEDS ORDERED: Klonopin 0.5 MG PO SCH (11:00)
[2020-04-08] MEDS ORDERED: ZYLOPRIM 100 MG PO SCH (11:00)
[2020-04-08] MEDS ORDERED: Flomax 0.4 MG PO SCH (11:00)
[2020-04-08] MEDS ORDERED: Neurontin 100 MG PO SCH (11:00)
[2020-04-08] MEDS ORDERED: Cozaar 50 MG PO SCH (11:00)
[2020-04-08] MEDS ORDERED: MAG-OX 400 PO SCH (11:00)
[2020-04-08] MEDS ORDERED: hydroDIURIL 25 MG PO SCH (11:00)
[2020-04-08] MEDS ORDERED: Amaryl 2 MG PO SCH (11:00)
[2020-04-08] MEDS ORDERED: Imdur 30 MG PO SCH (11:00)
[2020-04-08] MEDS ORDERED: Carafate 1 GM PO SCH (11:00)
[2020-04-08 11:12] VITALS: BP 128/63; PULSE 70; O2SAT 97
[2020-04-08] MEDS ORDERED: Klor Con 10 MEQ PO SCH (11:15)
[2020-04-08] MEDS ORDERED: Protonix 40MG Tablet PO SCH (11:15)
[2020-04-08] MEDS ORDERED: Lopressor 50 MG PO SCH (11:15)
[2020-04-08] MEDS ORDERED: THERAGRAN MULTIVITAMIN PO SCH (11:15)
[2020-04-08] MEDS ORDERED: Reglan 10 MG PO SCH (11:30)
[2020-04-08] MEDS ORDERED: NORVASC 5 MG PO SCH (12:00)
--- NOTE | 2020-04-08 12:35 | PCM.SSS ---
History of Present Illness - Chief Complaint Chief Complaint: chest pain for 1 day History of Present Illness: is a 89 year old male. presents to our ED with complaints of right-sided chest pain. Symptoms started 3 days ago. Symptoms have been intermittent. Pain described as a stabbing intermittent sensation. Patient went to [facility] yesterday. Patient had a complete work-up including imaging studies that were reportedly negative. Patient is here today with recurrence of his chest pain. Patient vomited once. No history of cardiac stents or IN. Symptoms are moderate in intensity. No specific worsening or improving factors. Patient voices no other concerns at this time. - Review of Systems Constitutional: No Fever, No Chills Eyes: No Symptoms Ears, Nose, & Throat: No Symptoms Respiratory: No Cough, No Short Of Breath Cardiac: Chest Pain, No Edema, No Syncope Abdominal/Gastrointestinal: No Abdominal Pain, No Nausea, No Vomiting, No Diarrhea Genitourinary Symptoms: No Dysuria Musculoskeletal: No Back Pain, No Neck Pain Skin: No Rash Neurological: No Dizziness, No Focal Weakness, No Sensory Changes Psychological: No Symptoms Endocrine: No Symptoms Hematologic/Lymphatic: No Symptoms Immunological/Allergic: No Symptoms Medications & Allergies Home Medications: Home Medication List Allopurinol 100 mg [Zyloprim 100 mg] 100 mg PO DAILY 08/11/19 [History Confirmed 04/08/20] Amlodipine Besylate 5 mg [Norvasc 5 mg] 5 mg PO BID 08/11/19 [History Confirmed 04/08/20] Glimepiride 1 mg PO DAILY 08/11/19 [History Confirmed 04/08/20] Losartan Potassium 50 mg [Cozaar 50 MG] 50 mg PO DAILY 08/11/19 [History Confirmed 04/08/20] Pravastatin Sodium 20 mg PO DAILY 08/11/19 [History Confirmed 04/08/20] Sucralfate 1 gm [Carafate 1 GM] 1 gm PO BID 08/11/19 [History Confirmed 04/08/20] Tamsulosin HCl 0.4 mg [Flomax 0.4 MG] 0.4 mg PO DAILY 08/11/19 [History Confirmed 04/08/20] Metoclopramide HCl 5 mg PO TID 08/19/19 [History Confirmed 04/08/20] Potassium Chloride [Klor-Con M10] 20 meq PO BID 08/19/19 [History Confirmed 04/08/20] clonazePAM [Clonazepam] 0.5 mg PO BID 08/19/19 [History Confirmed 04/08/20] hydroCHLOROthiazide [Hydrochlorothiazide] 12.5 mg PO DAILY 08/19/19 [History Confirmed 04/08/20] Gabapentin 100 cap PO BID 02/28/20 [History Confirmed 04/08/20] Metoprolol Tartrate 100 mg PO DAILY #0 03/01/20 [Rx Confirmed 04/08/20] Vit D3-Vit K/Berberine/Hops [Ostera Tablet] 1 ea DAILY 03/17/20 [History Confirmed 04/08/20] Isosorbide Mononitrate 30 mg [Imdur 30 MG] 30 mg PO DAILY 04/08/20 [History Confirmed 04/08/20] Magnesium Oxide 400 mg [Mag-Ox 400] 400 mg PO 04/08/20 [History] Pantoprazole Sodium [Protonix] 40 mg PO 04/08/20 [History] Allergies/Adverse Reactions: Allergies Allergy/AdvReac Type Severity Reaction Status Date / Time aspirin AdvReac Verified 04/07/20 19:16 - Past Medical History Past Medical History: Yes Neurological History: TIA ENT History: No Pertinent History Cardiac History: Arrhythmia, High Cholesterol, Hypertension Respiratory History: Bronchitis Endocrine Medical History: Diabetes Type II Musculoskelatal History: Arthritis GI Medical History: GERD History: No Pertinent History Pyscho-Social History: Anxiety Male Reproductive Disorders: Prostate Cancer Comment: gout, 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 - Past Surgical History Past Surgical History: Yes Neuro Surgical History: No Pertinent History Cardiac History: No Pertinent History Respiratory Surgery: No Pertinent History GI Surgical History: Hemorrhoidectomy Genitourinary Surgical Hx: No Pertinent History Musculskeletal Surgical Hx: Orthopedic Surgery Male Surgical History: No Pertinent History Other Surgical History: LT ARM - Social History Smoking Status: Never smoker Exposure to second hand smoke: No Alcohol: None Drug Use: none Significant Family History: no pertinent family hx - Physical Exam Vital Signs: Vital Signs - 24 hr Temp Pulse Pulse Resp BP Pulse Ox 04/08/20 11:12 98.1 F 70 17 128/63 97 04/08/20 07:20 97.6 F 57 L 16 137/63 91 L 04/08/20 06:01 92 L 04/08/20 04:00 97.5 F 58 L 18 124/58 93 L 04/07/20 23:41 97.8 F 58 L 18 135/60 94 L 04/07/20 23:00 57 L 10 L 122/57 99 04/07/20 22:00 53 L 10 L 113/61 99 04/07/20 21:56 97 04/07/20 21:00 56 L 12 110/62 98 04/07/20 20:12 56 L 10 L 110/62 99 04/07/20 19:40 97 04/07/20 19:12 98.9 F 60 60 12 101/55 97 General Appearance: no apparent distress, alert Neurologic Exam: alert, oriented x 3, cooperative, normal mood/affect, nml cerebellar function, nml station & gait, sensation nml, No motor deficits Eye Exam: PERRL/EOMI, eyes nml inspection Ears, Nose, Throat Exam: normal ENT inspection, TMs normal, pharynx normal, moist mucous membranes Neck Exam: normal inspection, non-tender, supple, full range of motion Respiratory Exam: normal breath sounds, lungs clear, No respiratory distress Cardiovascular Exam: regular rate/rhythm, normal heart sounds, normal peripheral pulses Gastrointestinal/Abdomen Exam: soft, normal bowel sounds, No tenderness, No mass Back Exam: normal inspection, normal range of motion, No CVA tenderness, No vertebral tenderness Extremity Exam: normal inspection, normal range of motion, pelvis stable Skin Exam: normal color, warm, dry, No rash Lymphatic Exam: No adenopathy Results - Labs Lab/Micro Results: Accuchecks Date 04/08/20 Date 04/08/20 Time 11:30 Time 07:30 Accucheck Value: 170 Accucheck Value: 87 Lab Results-Last 24 Hours 04/07/20 04/07/20 04/07/20 Range/Units 00:00 20:10 20:10 WBC 5.1 (4.0-10.5) K/mm3 RBC 3.60 L (4.1-5.6) M/mm3 Hgb 9.6 L (12.5-18.0) gm/dl Hct 30.3 L (42-50) % MCV 84.2 (78-100) fl MCH 26.7 (26-32) pg MCHC 31.7 L (32-36) g/dl RDW 16.3 H (11.5-14.0) % Plt Count 152 (150-450) K/mm3 MPV 10.6 (7.5-11.0) fl Absolute Granulocytes 2.30 (1.4-6.9) Segmented Neutrophils 48 (36.-66.) % Lymphocytes (Manual) 33 (24-44) % Monocytes (Manual) 15 H (0.0-12.0) % Eosinophils (Manual) 4 H (0.00-3.0) % Platelet Estimate NORMAL (NORMAL) RBC Morphology NORMAL D-Dimer (215-500) ng/mL Sodium 134 L (137-145) mmol/L Potassium 4.2 (3.5-5.1) mmol/L Chloride 103 (98-107) mmol/L Carbon Dioxide 23 (22-30) mmol/L Anion Gap 12.9 (5-15) MEQ/L BUN 21 H (9-20) mg/dL Creatinine 1.90 H (0.66-1.25) mg/dL Estimated GFR 35.7 ML/MIN Glucose 97 (74-106) mg/dL POC Glucometer (74 to 106) mg/dL Calcium 8.8 (8.4-10.2) mg/dL Total Bilirubin 0.50 (0.2-1.3) mg/dL AST 15 L (17-59) U/L ALT 10 (0-50) U/L Alkaline Phosphatase 93 (38-126) U/L Troponin I < 0.012 (0.000-0.034) ng/mL NT-Pro-B Natriuret Pep 1550 (0-1800) pg/mL Serum Total Protein 6.6 (6.3-8.2) g/dL Albumin 3.8 (3.5-5.0) g/dL Triglycerides (30-150) mg/dL Cholesterol (50-200) mg/dL LDL Cholesterol (30-100) mg/dL HDL Cholesterol (40-60) mg/dL Heart Disease Risk Ratio Amylase 72 (30-110) U/L Lipase 43 (23-300) U/L 04/07/20 04/07/20 04/08/20 Range/Units 20:10 20:10 03:00 WBC (4.0-10.5) K/mm3 RBC (4.1-5.6) M/mm3 Hgb (12.5-18.0) gm/dl Hct (42-50) % MCV (78-100) fl MCH (26-32) pg MCHC (32-36) g/dl RDW (11.5-14.0) % Plt Count (150-450) K/mm3 MPV (7.5-11.0) fl Absolute Granulocytes (1.4-6.9) Segmented Neutrophils (36.-66.) % Lymphocytes (Manual) (24-44) % Monocytes (Manual) (0.0-12.0) % Eosinophils (Manual) (0.00-3.0) % Platelet Estimate (NORMAL) RBC Morphology D-Dimer 509 H* (215-500) ng/mL Sodium (137-145) mmol/L Potassium (3.5-5.1) mmol/L Chloride (98-107) mmol/L Carbon Dioxide (22-30) mmol/L Anion Gap (5-15) MEQ/L BUN (9-20) mg/dL Creatinine (0.66-1.25) mg/dL Estimated GFR ML/MIN Glucose (74-106) mg/dL POC Glucometer (74 to 106) mg/dL Calcium (8.4-10.2) mg/dL Total Bilirubin (0.2-1.3) mg/dL AST (17-59) U/L ALT (0-50) U/L Alkaline Phosphatase (38-126) U/L Troponin I < 0.012 < 0.012 (0.000-0.034) ng/mL NT-Pro-B Natriuret Pep (0-1800) pg/mL Serum Total Protein (6.3-8.2) g/dL Albumin (3.5-5.0) g/dL Triglycerides 129 (30-150) mg/dL Cholesterol 100 (50-200) mg/dL LDL Cholesterol 47 (30-100) mg/dL HDL Cholesterol 25 L (40-60) mg/dL Heart Disease Risk Ratio 3.9 Amylase (30-110) U/L Lipase (23-300) U/L 04/08/20 04/08/20 04/08/20 Range/Units 06:00 07:34 08:30 WBC (4.0-10.5) K/mm3 RBC (4.1-5.6) M/mm3 Hgb (12.5-18.0) gm/dl Hct (42-50) % MCV (78-100) fl MCH (26-32) pg MCHC (32-36) g/dl RDW (11.5-14.0) % Plt Count (150-450) K/mm3 MPV (7.5-11.0) fl Absolute Granulocytes (1.4-6.9) Segmented Neutrophils (36.-66.) % Lymphocytes (Manual) (24-44) % Monocytes (Manual) (0.0-12.0) % Eosinophils (Manual) (0.00-3.0) % Platelet Estimate (NORMAL) RBC Morphology D-Dimer (215-500) ng/mL Sodium (137-145) mmol/L Potassium (3.5-5.1) mmol/L Chloride (98-107) mmol/L Carbon Dioxide (22-30) mmol/L Anion Gap (5-15) MEQ/L BUN (9-20) mg/dL Creatinine (0.66-1.25) mg/dL Estimated GFR ML/MIN Glucose (74-106) mg/dL POC Glucometer 87 (74 to 106) mg/dL Calcium (8.4-10.2) mg/dL Total Bilirubin (0.2-1.3) mg/dL AST (17-59) U/L ALT (0-50) U/L Alkaline Phosphatase (38-126) U/L Troponin I < 0.012 < 0.012 (0.000-0.034) ng/mL NT-Pro-B Natriuret Pep (0-1800) pg/mL Serum Total Protein (6.3-8.2) g/dL Albumin (3.5-5.0) g/dL Triglycerides (30-150) mg/dL Cholesterol (50-200) mg/dL LDL Cholesterol (30-100) mg/dL HDL Cholesterol (40-60) mg/dL Heart Disease Risk Ratio Amylase (30-110) U/L Lipase (23-300) U/L 04/08/20 Range/Units 11:02 WBC (4.0-10.5) K/mm3 RBC (4.1-5.6) M/mm3 Hgb (12.5-18.0) gm/dl Hct (42-50) % MCV (78-100) fl MCH (26-32) pg MCHC (32-36) g/dl RDW (11.5-14.0) % Plt Count (150-450) K/mm3 MPV (7.5-11.0) fl Absolute Granulocytes (1.4-6.9) Segmented Neutrophils (36.-66.) % Lymphocytes (Manual) (24-44) % Monocytes (Manual) (0.0-12.0) % Eosinophils (Manual) (0.00-3.0) % Platelet Estimate (NORMAL) RBC Morphology D-Dimer (215-500) ng/mL Sodium (137-145) mmol/L Potassium (3.5-5.1) mmol/L Chloride (98-107) mmol/L Carbon Dioxide (22-30) mmol/L Anion Gap (5-15) MEQ/L BUN (9-20) mg/dL Creatinine (0.66-1.25) mg/dL Estimated GFR ML/MIN Glucose (74-106) mg/dL POC Glucometer 170 H (74 to 106) mg/dL Calcium (8.4-10.2) mg/dL Total Bilirubin (0.2-1.3) mg/dL AST (17-59) U/L ALT (0-50) U/L Alkaline Phosphatase (38-126) U/L Troponin I (0.000-0.034) ng/mL NT-Pro-B Natriuret Pep (0-1800) pg/mL Serum Total Protein (6.3-8.2) g/dL Albumin (3.5-5.0) g/dL Triglycerides (30-150) mg/dL Cholesterol (50-200) mg/dL LDL Cholesterol (30-100) mg/dL HDL Cholesterol (40-60) mg/dL Heart Disease Risk Ratio Amylase (30-110) U/L Lipase (23-300) U/L Accuchecks Date 04/08/20 Date 04/08/20 Time 11:30 Time 07:30 Accucheck Value: 170 Accucheck Value: 87 - Radiology Impressions Radiology Exams & Impressions: Radiology Procedures Category Date Time Status CHEST 1 VIEW (PORTABLE) Stat Exams 04/07/20 19:42 Completed - Other Procedures and Tests Respiratory Therapy 04/09/20 05:00 EKG DAILY 04/10/20 05:00 EKG DAILY 04/11/20 05:00 EKG DAILY Assessment/Plan (1) ACS (acute coronary syndrome) Current Visit: Yes Status: Acute Code(s): I24.9 - ACUTE ISCHEMIC HEART DISEASE, UNSPECIFIED (2) Acute renal injury Current Visit: Yes Status: Acute Code(s): N17.9 - ACUTE KIDNEY FAILURE, UNSPECIFIED (3) CHF (congestive heart failure), NYHA class IV Current Visit: No Status: Acute Qualifiers: Code(s): I50.9 - HEART FAILURE, UNSPECIFIED (4) COPD (chronic obstructive pulmonary disease) Current Visit: No Status: Acute Hospital Summary - Hospital Course Hospital Course: Chief Complaint Diagnosis chest pain for 1 day Allergies Allergy/AdvReac Type Severity Reaction Status Date / Time aspirin AdvReac Verified 04/07/20 19:16 Vital Signs (Last 24 hours) Temp Pulse Pulse Resp BP Pulse Ox 04/08/20 11:12 98.1 F 70 17 128/63 97 04/08/20 07:20 97.6 F 57 L 16 137/63 91 L 04/08/20 06:01 92 L 04/08/20 04:00 97.5 F 58 L 18 124/58 93 L 04/07/20 23:41 97.8 F 58 L 18 135/60 94 L 04/07/20 23:00 57 L 10 L 122/57 99 04/07/20 22:00 53 L 10 L 113/61 99 04/07/20 21:56 97 04/07/20 21:00 56 L 12 110/62 98 04/07/20 20:12 56 L 10 L 110/62 99 04/07/20 19:40 97 04/07/20 19:12 98.9 F 60 60 12 101/55 97 Home Medications Medication Instructions Recorded Confirmed Last Taken Type Isosorbide Mononitrate 30 mg 30 mg PO DAILY 04/08/20 04/08/20 Unknown History [Imdur 30 MG] Magnesium Oxide 400 mg [Mag-Ox 400 mg PO 04/08/20 Unknown History 400] Pantoprazole Sodium [Protonix] 40 mg PO 04/08/20 Unknown History Current Medications Generic Name Dose Route Start Last Admin Trade Name Freq PRN Reason Stop Dose Admin Acetaminophen 650 mg 04/07/20 23:34 Tylenol 325 Mg PO 05/07/20 23:33 Q4H PRN PRN PAIN AND/OR FEVER Al Hydrox/Mg Hydrox/Simethicone 30 ml 04/07/20 23:34 Maalox Es 30 Ml Unit Dose PO 05/07/20 23:33 Q4H PRN PRN INDIGESTION Allopurinol 100 mg 04/08/20 11:00 04/08/20 11:37 Zyloprim 100 Mg PO 05/08/20 10:59 100 mg DAILY DRAKE Administration Amlodipine Besylate 5 mg 04/08/20 12:00 04/08/20 11:34 Norvasc 5 Mg PO 05/08/20 11:59 5 mg BID DRAKE Administration Clonazepam 0.5 mg 04/08/20 11:00 04/08/20 11:35 Klonopin 0.5 Mg PO 05/08/20 10:59 0.5 mg BID DRAKE Administration Gabapentin 100 mg 04/08/20 11:00 04/08/20 11:34 Neurontin 100 Mg PO 05/08/20 10:59 100 mg BID DRAKE Administration Glimepiride 1 mg 04/08/20 11:00 04/08/20 11:36 Amaryl 2 Mg PO 05/08/20 10:59 1 mg DAILY DRAKE Administration Hydrochlorothiazide 12.5 mg 04/08/20 11:00 04/08/20 11:38 Hydrodiuril 25 Mg PO 05/08/20 10:59 12.5 mg DAILY DRAKE Administration Isosorbide Mononitrate 30 mg 04/08/20 11:00 04/08/20 11:35 Imdur 30 Mg PO 05/08/20 10:59 30 mg DAILY DRAKE Administration Losartan Potassium 50 mg 04/08/20 11:00 04/08/20 11:37 Cozaar 50 Mg PO 05/08/20 10:59 50 mg DAILY DRAKE Administration Magnesium Hydroxide 30 - 60 ml 04/07/20 23:34 Milk Of Magnesia 30 Ml PO 05/07/20 23:33 QDP PRN CONSTIPATION Magnesium Oxide 400 mg 04/08/20 11:00 04/08/20 11:35 Mag-Ox 400 PO 05/08/20 10:59 400 mg DAILY DRAKE Administration Metoclopramide HCl 5 mg 04/08/20 11:30 04/08/20 11:35 Reglan 10 Mg PO 05/08/20 11:29 5 mg TIDAC DRAKE Administration Metoprolol Tartrate 100 mg 04/08/20 11:15 04/08/20 11:35 Lopressor 50 Mg PO 05/08/20 11:14 100 mg DAILY DRAKE Administration Multivitamins Therapeutic 1 tab 04/08/20 11:15 04/08/20 11:34 Theragran Multivitamin PO 05/08/20 11:14 1 tab DAILY DRAKE Administration Ondansetron HCl 4 mg 04/07/20 23:34 Zofran 4 Mg/2 Ml Vial IV 05/07/20 23:33 Q4H PRN PRN NAUSEA/VOMITING Pantoprazole Sodium 40 mg 04/08/20 11:15 04/08/20 11:35 Protonix 40mg Tablet PO 05/08/20 11:14 40 mg DAILY DRAKE Administration Potassium Chloride 20 meq 04/08/20 11:15 04/08/20 11:34 Klor Con 10 Meq PO 05/08/20 11:14 20 meq BID DRAKE Administration Senna/Docusate Sodium 2 udtab 04/07/20 23:34 04/08/20 11:34 Senokot-S Tablet PO 05/07/20 23:33 2 udtab BID PRN PRN Administration CONSTIPATION Simvastatin 20 mg 04/08/20 22:00 Zocor 20mg PO 05/08/20 21:59 HS DRAKE Sucralfate 1 g 04/08/20 11:00 04/08/20 11:35 Carafate 1 Gm PO 05/08/20 10:59 1 g BID DRAKE Administration Tamsulosin HCl 0.4 mg 04/08/20 11:00 04/08/20 11:37 Flomax 0.4 Mg PO 05/08/20 10:59 0.4 mg DAILY DRAKE Administration Intake & Output (Last 24 hours) 04/06/20 04/07/20 04/08/20 09/05/20 11:59 11:59 11:59 11:59 Intake Total 460 Output Total 1225 Balance -765 Weight 84.2 kg Laboratory Results (Last 24 hours) 04/08/20 04/08/20 04/08/20 11:02 08:30 07:34 WBC RBC Hgb Hct MCV MCH MCHC RDW Plt Count MPV Absolute Granulocytes Segmented Neutrophils Lymphocytes (Manual) Monocytes (Manual) Eosinophils (Manual) Platelet Estimate RBC Morphology D-Dimer Sodium Potassium Chloride Carbon Dioxide Anion Gap BUN Creatinine Estimated GFR Glucose POC Glucometer 170 H 87 Calcium Total Bilirubin AST ALT Alkaline Phosphatase Troponin I < 0.012 NT-Pro-B Natriuret Pep Serum Total Protein Albumin Triglycerides Cholesterol LDL Cholesterol HDL Cholesterol Heart Disease Risk Ratio Amylase Lipase 04/08/20 04/08/20 04/07/20 06:00 03:00 20:10 WBC RBC Hgb Hct MCV MCH MCHC RDW Plt Count MPV Absolute Granulocytes Segmented Neutrophils Lymphocytes (Manual) Monocytes (Manual) Eosinophils (Manual) Platelet Estimate RBC Morphology D-Dimer Sodium Potassium Chloride Carbon Dioxide Anion Gap BUN Creatinine Estimated GFR Glucose POC Glucometer Calcium Total Bilirubin AST ALT Alkaline Phosphatase Troponin I < 0.012 < 0.012 < 0.012 NT-Pro-B Natriuret Pep Serum Total Protein Albumin Triglycerides 129 Cholesterol 100 LDL Cholesterol 47 HDL Cholesterol 25 L Heart Disease Risk Ratio 3.9 Amylase Lipase 04/07/20 04/07/20 04/07/20 20:10 20:10 20:10 WBC 5.1 RBC 3.60 L Hgb 9.6 L Hct 30.3 L MCV 84.2 MCH 26.7 MCHC 31.7 L RDW 16.3 H Plt Count 152 MPV 10.6 Absolute Granulocytes 2.30 Segmented Neutrophils 48 Lymphocytes (Manual) 33 Monocytes (Manual) 15 H Eosinophils (Manual) 4 H Platelet Estimate NORMAL RBC Morphology NORMAL D-Dimer 509 H* Sodium 134 L Potassium 4.2 Chloride 103 Carbon Dioxide 23 Anion Gap 12.9 BUN 21 H Creatinine 1.90 H Estimated GFR 35.7 Glucose 97 POC Glucometer Calcium 8.8 Total Bilirubin 0.50 AST 15 L ALT 10 Alkaline Phosphatase 93 Troponin I NT-Pro-B Natriuret Pep 1550 Serum Total Protein 6.6 Albumin 3.8 Triglycerides Cholesterol LDL Cholesterol HDL Cholesterol Heart Disease Risk Ratio Amylase 72 Lipase 43 04/07/20 00:00 WBC RBC Hgb Hct MCV MCH MCHC RDW Plt Count MPV Absolute Granulocytes Segmented Neutrophils Lymphocytes (Manual) Monocytes (Manual) Eosinophils (Manual) Platelet Estimate RBC Morphology D-Dimer Sodium Potassium Chloride Carbon Dioxide Anion Gap BUN Creatinine Estimated GFR Glucose POC Glucometer Calcium Total Bilirubin AST ALT Alkaline Phosphatase Troponin I < 0.012 NT-Pro-B Natriuret Pep Serum Total Protein Albumin Triglycerides Cholesterol LDL Cholesterol HDL Cholesterol Heart Disease Risk Ratio Amylase Lipase Orders (Last 24 hours) Category Date Time Status Bedrest ROUTINE Activity 04/07/20 23:34 Active Bedrest with BRP/BSC ROUTINE Activity 04/07/20 23:34 Active ACCUCHECK [Accucheck] ACHS Care 04/08/20 00:39 Active Freight Elevator Operator STAT Care 04/07/20 19:41 Completed Code Status Order ROUTINE Care 04/07/20 23:34 Active EKG-ER Only STAT Care 04/07/20 19:40 Completed IV Care Q6H Care 04/07/20 23:34 Active IV Insertion STAT Care 04/07/20 19:40 Completed Implement Chest Pain Pathway ROUTINE Care 04/07/20 23:[address] in Observation ROUTINE Care 04/07/20 23:34 Active Pulse Oximetry (ED) STAT Care 04/07/20 19:40 Completed Arnav Vane, Apply ROUTINE Care 04/07/20 23:34 Active Weight,Daily 0600 Care 04/07/20 23:34 Active CHEST 1 VIEW (PORTABLE) Stat Exams 04/07/20 19:42 Completed AMYLASE Stat Lab 04/07/20 20:10 Completed CBC W DIFF Stat Lab 04/07/20 20:10 Completed CMP Stat Lab 04/07/20 20:10 Completed D-DIMER QUANTITATIVE Stat Lab 04/07/20 20:10 Completed LIPASE Stat Lab 04/07/20 20:10 Completed LIPID PROFILE Urgent Lab 04/08/20 03:00 Completed Manual Differential NC Stat Lab 04/07/20 20:10 Completed NT PRO BNP Stat Lab 04/07/20 20:10 Completed POCT GLUCOSE Stat Lab 04/08/20 07:34 Completed POCT GLUCOSE Stat Lab 04/08/20 11:02 Completed TROPONIN Q3H Lab 04/07/20 20:10 Completed TROPONIN Q3H Lab 04/08/20 03:00 Completed TROPONIN Q3H Lab 04/08/20 06:00 Completed TROPONIN Q3H Lab 04/08/20 08:30 Completed Acetaminophen 325 mg [Tylenol 325 mg] Med 04/07/20 23:34 Active 650 mg PO Q4H PRN PRN Allopurinol 100 mg [Zyloprim 100 mg] Med 04/08/20 11:00 Active 100 mg PO DAILY Amlodipine Besylate 5 mg [Norvasc 5 mg] Med 04/08/20 12:00 Active 5 mg PO BID Clonazepam 0.5 mg [Klonopin 0.5 MG] Med 04/08/20 11:00 Active 0.5 mg PO BID Gabapentin 100 mg [Neurontin 100 MG] Med 04/08/20 11:00 Active 100 mg PO BID Glimepiride 2 mg [Amaryl 2 MG] Med 04/08/20 11:00 Active 1 mg PO DAILY Hydrochlorothiazide 25 mg [hydroDIURIL 25 MG] Med 04/08/20 11:00 Active 12.5 mg PO DAILY Isosorbide Mononitrate 30 mg [Imdur 30 MG] Med 04/08/20 11:00 Active 30 mg PO DAILY Losartan Potassium 50 mg [Cozaar 50 MG] Med 04/08/20 11:00 Active 50 mg PO DAILY Mag Hydrox/Al Hydrox/Simeth [Maalox Es 30 ml Unit Med 04/07/20 23:34 Active Dose] 30 ml PO Q4H PRN PRN Magnesium Hydroxide 30 ml [Milk of Magnesia 30 ml Med 04/07/20 23:34 Active ] 30 - 60 ml PO QDP PRN Magnesium Oxide 400 mg [Mag-Ox 400] Med 04/08/20 11:00 Active 400 mg PO DAILY Metoclopramide HCl 10 mg [Reglan 10 MG] Med 04/08/20 11:30 Active 5 mg PO TIDAC Metoprolol Tartrate 50 mg [Lopressor 50 MG] Med 04/08/20 11:15 Active 100 mg PO DAILY Multivitamins,Therapeutic Tab* [Theragran Multivitamin* Med 04/08/20 11:15 Active ] 1 tab PO DAILY Ondansetron HCl 4 mg/2 ml [Zofran 4 MG/2 ML VIAL] Med 04/07/20 23:34 Active 4 mg IV Q4H PRN PRN PANTOPRAZOLE 40 mg Tablet [Protonix 40MG Tablet] Med 04/08/20 11:15 Active 40 mg PO DAILY Potassium Chloride 10 Meq Tab* [Klor Con 10 MEQ] Med 04/08/20 11:15 Active 20 meq PO BID Senna/Docusate Sodium Tab [Senokot-S Tablet] Med 04/07/20 23:34 Active 2 udtab PO BID PRN PRN Simvastatin 20Mg [Zocor 20Mg] Med 04/08/20 22:00 Active 20 mg PO HS Sucralfate 1 gm [Carafate 1 GM] Med 04/08/20 11:00 Active 1 g PO BID Tamsulosin HCl 0.4 mg [Flomax 0.4 MG] Med 04/08/20 11:00 Active 0.4 mg PO DAILY EKG DAILY RT 04/09/20 05:00 Active EKG DAILY RT 04/10/20 05:00 Active EKG DAILY RT 04/11/20 05:00 Active EKG Q8HX2,QAMX3,PRN RT 04/07/20 23:34 Completed EKG ROUTINE RT 04/08/20 03:40 Completed Pulse Oximetry .spot check RT 04/08/20 04:06 Active Patient Care Notes (Last 24 hours) 04/08/20 09:09 Case Management Note by Sol Roberto LEFT A MESSAGE FOR DAUGHTER AT THIS TIME TO DISCUSS DC PLAN. Initialized on 04/08/20 09:09 - END OF NOTE - Vitals & Intake/Output Vital Signs: Vital Signs Temperature 98.1 F 04/08/20 11:12 Pulse Rate 70 04/08/20 11:12 Respiratory Rate 17 04/08/20 11:12 Blood Pressure 128/63 04/08/20 11:12 O2 Sat by Pulse Oximetry 97 04/08/20 11:12 Intake & Output: Intake & Output 04/06/20 04/07/20 04/08/20 09/05/20 11:59 11:59 11:59 11:59 Intake Total 460 Output Total 1225 Balance -765 Weight 84.2 kg - Lab Result Diagrams: 04/07/20 20:10 04/07/20 20:10 Lab Results-Last 24 Hrs: Accuchecks Date 04/08/20 Date 04/08/20 Time 11:30 Time 07:30 Accucheck Value: 170 Accucheck Value: 87 Lab Results-Last 24 Hours 04/07/20 04/07/20 04/07/20 Range/Units 00:00 20:10 20:10 WBC 5.1 (4.0-10.5) K/mm3 RBC 3.60 L (4.1-5.6) M/mm3 Hgb 9.6 L (12.5-18.0) gm/dl Hct 30.3 L (42-50) % MCV 84.2 (78-100) fl MCH 26.7 (26-32) pg MCHC 31.7 L (32-36) g/dl RDW 16.3 H (11.5-14.0) % Plt Count 152 (150-450) K/mm3 MPV 10.6 (7.5-11.0) fl Absolute Granulocytes 2.30 (1.4-6.9) Segmented Neutrophils 48 (36.-66.) % Lymphocytes (Manual) 33 (24-44) % Monocytes (Manual) 15 H (0.0-12.0) % Eosinophils (Manual) 4 H (0.00-3.0) % Platelet Estimate NORMAL (NORMAL) RBC Morphology NORMAL D-Dimer (215-500) ng/mL Sodium 134 L (137-145) mmol/L Potassium 4.2 (3.5-5.1) mmol/L Chloride 103 (98-107) mmol/L Carbon Dioxide 23 (22-30) mmol/L Anion Gap 12.9 (5-15) MEQ/L BUN 21 H (9-20) mg/dL Creatinine 1.90 H (0.66-1.25) mg/dL Estimated GFR 35.7 ML/MIN Glucose 97 (74-106) mg/dL POC Glucometer (74 to 106) mg/dL Calcium 8.8 (8.4-10.2) mg/dL Total Bilirubin 0.50 (0.2-1.3) mg/dL AST 15 L (17-59) U/L ALT 10 (0-50) U/L Alkaline Phosphatase 93 (38-126) U/L Troponin I < 0.012 (0.000-0.034) ng/mL NT-Pro-B Natriuret Pep 1550 (0-1800) pg/mL Serum Total Protein 6.6 (6.3-8.2) g/dL Albumin 3.8 (3.5-5.0) g/dL Triglycerides (30-150) mg/dL Cholesterol (50-200) mg/dL LDL Cholesterol (30-100) mg/dL HDL Cholesterol (40-60) mg/dL Heart Disease Risk Ratio Amylase 72 (30-110) U/L Lipase 43 (23-300) U/L 04/07/20 04/07/20 04/08/20 Range/Units 20:10 20:10 03:00 WBC (4.0-10.5) K/mm3 RBC (4.1-5.6) M/mm3 Hgb (12.5-18.0) gm/dl Hct (42-50) % MCV (78-100) fl MCH (26-32) pg MCHC (32-36) g/dl RDW (11.5-14.0) % Plt Count (150-450) K/mm3 MPV (7.5-11.0) fl Absolute Granulocytes (1.4-6.9) Segmented Neutrophils (36.-66.) % Lymphocytes (Manual) (24-44) % Monocytes (Manual) (0.0-12.0) % Eosinophils (Manual) (0.00-3.0) % Platelet Estimate (NORMAL) RBC Morphology D-Dimer 509 H* (215-500) ng/mL Sodium (137-145) mmol/L Potassium (3.5-5.1) mmol/L Chloride (98-107) mmol/L Carbon Dioxide (22-30) mmol/L Anion Gap (5-15) MEQ/L BUN (9-20) mg/dL Creatinine (0.66-1.25) mg/dL Estimated GFR ML/MIN Glucose (74-106) mg/dL POC Glucometer (74 to 106) mg/dL Calcium (8.4-10.2) mg/dL Total Bilirubin (0.2-1.3) mg/dL AST (17-59) U/L ALT (0-50) U/L Alkaline Phosphatase (38-126) U/L Troponin I < 0.012 < 0.012 (0.000-0.034) ng/mL NT-Pro-B Natriuret Pep (0-1800) pg/mL Serum Total Protein (6.3-8.2) g/dL Albumin (3.5-5.0) g/dL Triglycerides 129 (30-150) mg/dL Cholesterol 100 (50-200) mg/dL LDL Cholesterol 47 (30-100) mg/dL HDL Cholesterol 25 L (40-60) mg/dL Heart Disease Risk Ratio 3.9 Amylase (30-110) U/L Lipase (23-300) U/L 04/08/20 04/08/20 04/08/20 Range/Units 06:00 07:34 08:30 WBC (4.0-10.5) K/mm3 RBC (4.1-5.6) M/mm3 Hgb (12.5-18.0) gm/dl Hct (42-50) % MCV (78-100) fl MCH (26-32) pg MCHC (32-36) g/dl RDW (11.5-14.0) % Plt Count (150-450) K/mm3 MPV (7.5-11.0) fl Absolute Granulocytes (1.4-6.9) Segmented Neutrophils (36.-66.) % Lymphocytes (Manual) (24-44) % Monocytes (Manual) (0.0-12.0) % Eosinophils (Manual) (0.00-3.0) % Platelet Estimate (NORMAL) RBC Morphology D-Dimer (215-500) ng/mL Sodium (137-145) mmol/L Potassium (3.5-5.1) mmol/L Chloride (98-107) mmol/L Carbon Dioxide (22-30) mmol/L Anion Gap (5-15) MEQ/L BUN (9-20) mg/dL Creatinine (0.66-1.25) mg/dL Estimated GFR ML/MIN Glucose (74-106) mg/dL POC Glucometer 87 (74 to 106) mg/dL Calcium (8.4-10.2) mg/dL Total Bilirubin (0.2-1.3) mg/dL AST (17-59) U/L ALT (0-50) U/L Alkaline Phosphatase (38-126) U/L Troponin I < 0.012 < 0.012 (0.000-0.034) ng/mL NT-Pro-B Natriuret Pep (0-1800) pg/mL Serum Total Protein (6.3-8.2) g/dL Albumin (3.5-5.0) g/dL Triglycerides (30-150) mg/dL Cholesterol (50-200) mg/dL LDL Cholesterol (30-100) mg/dL HDL Cholesterol (40-60) mg/dL Heart Disease Risk Ratio Amylase (30-110) U/L Lipase (23-300) U/L 04/08/20 Range/Units 11:02 WBC (4.0-10.5) K/mm3 RBC (4.1-5.6) M/mm3 Hgb (12.5-18.0) gm/dl Hct (42-50) % MCV (78-100) fl MCH (26-32) pg MCHC (32-36) g/dl RDW (11.5-14.0) % Plt Count (150-450) K/mm3 MPV (7.5-11.0) fl Absolute Granulocytes (1.4-6.9) Segmented Neutrophils (36.-66.) % Lymphocytes (Manual) (24-44) % Monocytes (Manual) (0.0-12.0) % Eosinophils (Manual) (0.00-3.0) % Platelet Estimate (NORMAL) RBC Morphology D-Dimer (215-500) ng/mL Sodium (137-145) mmol/L Potassium (3.5-5.1) mmol/L Chloride (98-107) mmol/L Carbon Dioxide (22-30) mmol/L Anion Gap (5-15) MEQ/L BUN (9-20) mg/dL Creatinine (0.66-1.25) mg/dL Estimated GFR ML/MIN Glucose (74-106) mg/dL POC Glucometer 170 H (74 to 106) mg/dL Calcium (8.4-10.2) mg/dL Total Bilirubin (0.2-1.3) mg/dL AST (17-59) U/L ALT (0-50) U/L Alkaline Phosphatase (38-126) U/L Troponin I (0.000-0.034) ng/mL NT-Pro-B Natriuret Pep (0-1800) pg/mL Serum Total Protein (6.3-8.2) g/dL Albumin (3.5-5.0) g/dL Triglycerides (30-150) mg/dL Cholesterol (50-200) mg/dL LDL Cholesterol (30-100) mg/dL HDL Cholesterol (40-60) mg/dL Heart Disease Risk Ratio Amylase (30-110) U/L Lipase (23-300) U/L Micro Results-Entire Visit: Accuchecks Date 04/08/20 Date 04/08/20 Time 11:30 Time 07:30 Accucheck Value: 170 Accucheck Value: 87 - Radiology Exams Ordered Rad Exams-Entire Visit: Radiology Procedures Category Date Time Status CHEST 1 VIEW (PORTABLE) Stat Exams 04/07/20 19:42 Completed - Procedures and Test Procedures and Tests throughout Hospitalization: Therapy Orders & Screens 04/07/20 23:34 EKG [id number],QAMX3,PRN Comment: 04/08/20 03:40 EKG ROUTINE Comment: Diagnosis: ACS 04/09/20 05:00 EKG DAILY Comment: Diagnosis: ACS 04/10/20 05:00 EKG DAILY Comment: Diagnosis: ACS 04/11/20 05:00 EKG DAILY Comment: Diagnosis: ACS - Discharge Discharge Date: 04/08/20 Disposition: Home, Self-Care Condition: Stable Prescriptions: Continue Tamsulosin HCl 0.4 mg [Flomax 0.4 MG] 0.4 mg PO DAILY Allopurinol 100 mg [Zyloprim 100 mg] 100 mg PO DAILY Losartan Potassium 50 mg [Cozaar 50 MG] 50 mg PO DAILY Amlodipine Besylate 5 mg [Norvasc 5 mg] 5 mg PO BID Sucralfate 1 gm [Carafate 1 GM] 1 gm PO BID Pravastatin Sodium 20 mg PO DAILY Glimepiride 1 mg PO DAILY Metoclopramide HCl 5 mg PO TID Potassium Chloride [Klor-Con M10] 20 meq PO BID hydroCHLOROthiazide [Hydrochlorothiazide] 12.5 mg PO DAILY clonazePAM [Clonazepam] 0.5 mg PO BID Gabapentin 100 cap PO BID Metoprolol Tartrate 100 mg PO DAILY #0 Vit D3-Vit K/Berberine/Hops [Ostera Tablet] 1 ea DAILY Isosorbide Mononitrate 30 mg [Imdur 30 MG] 30 mg PO DAILY Pantoprazole Sodium [Protonix] 40 mg PO Magnesium Oxide 400 mg [Mag-Ox 400] 400 mg PO Additional Instructions: [facility] WILL CONTACT [facility] TO SET UP APPOINTMENT TO START OUTPT PHYSICAL THERAPY Follow up with: CHANDANA DUNNE MD [Primary Care Provider] - 1 Week
[2020-04-08] MEDS ORDERED: METOCLOPRAMIDE HCL 5 MG PO SCH (15:00)
[2020-04-08] MEDS ORDERED: POTASSIUM CHLORIDE 20 MEQ PO SCH (22:00)
[2020-04-08] MEDS ORDERED: ZOCOR 20MG PO SCH (22:00)
[2020-04-09] MEDS ORDERED: NON-FORMULARY ITEM (Metoprolol Tartrate [Metoprolol Tartrate] 100 MG) PO SCH (10:00)
[2020-04-09] MEDS ORDERED: PANTOPRAZOLE SODIUM 40 MG PO SCH (10:00)
[2020-04-09] MEDS ORDERED: NON-FORMULARY ITEM (Hydrochlorothiazide [Hydrochlorothiazide] 12.5 MG) PO SCH (10:00)
[2020-04-09] MEDS ORDERED: VIT D3 VIT K PO SCH (10:00)
[2020-04-09] MEDS ORDERED: BERBERINE PO SCH (10:00)
[2020-04-09] MEDS ORDERED: NON-FORMULARY ITEM (Glimepiride [Glimepiride] 1 MG) PO SCH (10:00)
[2020-04-09] MEDS ORDERED: NON-FORMULARY ITEM (Pravastatin Sodium [Pravastatin Sodium] 20 MG) PO SCH (10:00)
[2020-04-09] MEDS ORDERED: HOPS PO SCH (10:00)
== END 2020-04-08 14:52 | disposition home or self-care (01) ==
LOC: ED 19:12 → MED SURG 23:27
PROVIDERS: ADMIT General Practice; ATTEND General Practice
DX: I24.9 Acute ischemic heart disease, unspecified (principal); E11.9 Type 2 diabetes mellitus without complications; N17.9 Acute kidney failure, unspecified; I11.0 Hypertensive heart disease with heart failure; I50.9 Heart failure, unspecified; E78.00 Pure hypercholesterolemia, unspecified; J44.9 Chronic obstructive pulmonary disease, unspecified; Z86.73 Personal history of transient ischemic attack (TIA), and cerebral infarction without residual deficits; Z79.899 Other long term (current) drug therapy
CPT/HCPCS: 36000; 36415; 71045; 80053; 80061; 82150; 82962; 83690; 83721; 83880; 84484; 85025; 85379; 93005; 93041; 93268; 94760; 99285; A9270-GY; G0378

== ENCOUNTER 2020-05-26 19:41 | Observation (INO) | payer MEDICARE ==
[2020-05-26 20:39] LABS: Hematocrit 29.2 % (42-50); Hemoglobin 9.1 gm/dl (12.5-18.0); Mean Cell Volume 85.9 fl (78-100); Mean Corpuscular Hemoglobin 26.8 pg (26-32); Mean Corpuscular Hgb Concent. 31.2 g/dl (32-36); Mean Platelet Volume 10.1 fl (7.5-11.0); Platelet Count 130 K/mm3 (150-450); White Blood Count 5.2 K/mm3 (4.0-10.5)
--- NOTE | 2020-05-26 20:49 | ERPHSYRPT ---
- History of Present Illness Source: patient, other (Daughter) Exam Limitations: other (Poor historian) Patient Subjective Stated Complaint: pt states he has had a low grade fever, cough, abd cramping, diarrhea since this morning. denies abd pain at this time Triage Nursing Assessment: pt alert and oriented, answers questions approp, pt very [place]. pt back per wheelchair. transfers to stretcher with assist of 1. skin pink warm and dry. respriations nonlabored with lungs cta. abd soft and nontender. bowel sounds present. Physician History: 89 yo wm w cough/coryza/nausea/loose stool/generalized abdominal pain which has resolved/borderline fever x 1 day. Pt denies chest pain/dyspnea/focal weakness/dysuria/hematuria. Timing/Duration: other (1 day) Cough Quality/Degree: dry cough Possible Cause: no prior episodes Modifying Factors: Improves With: nothing Associated Symptoms: fever, cough, nasal drainage, No chills, No chest pain/soreness, No dizziness, No earache, No facial pain, No headache, No lightheadedness, No muscle aches, No nasal congestion, No shortness of breath, No sinus infection, No sore throat, No wheezing Allergies/Adverse Reactions: aspirin Adverse Reaction (Verified 05/26/20 20:13) Home Medications: Allopurinol 100 mg [Zyloprim 100 mg] 100 mg PO DAILY 08/11/19 [History] Amlodipine Besylate 5 mg [Norvasc 5 mg] 5 mg PO BID 08/11/19 [History] Glimepiride 1 mg PO DAILY 08/11/19 [History] Losartan Potassium 50 mg [Cozaar 50 MG] 50 mg PO DAILY 08/11/19 [History] Pravastatin Sodium 20 mg PO DAILY 08/11/19 [History] Sucralfate 1 gm [Carafate 1 GM] 1 gm PO BID 08/11/19 [History] Tamsulosin HCl 0.4 mg [Flomax 0.4 MG] 0.4 mg PO DAILY 08/11/19 [History] Metoclopramide HCl 5 mg PO TID 08/19/19 [History] Potassium Chloride [Klor-Con M10] 20 meq PO BID 08/19/19 [History] clonazePAM [Clonazepam] 0.5 mg PO BID 08/19/19 [History] hydroCHLOROthiazide [Hydrochlorothiazide] 12.5 mg PO DAILY 08/19/19 [History] Gabapentin 100 cap PO BID 02/28/20 [History] Vit D3-Vit K/Berberine/Hops [Ostera Tablet] 1 ea DAILY 03/17/20 [History] Isosorbide Mononitrate 30 mg [Imdur 30 MG] 30 mg PO DAILY 04/08/20 [History] Magnesium Oxide 400 mg [Mag-Ox 400] 400 mg PO 04/08/20 [History] Pantoprazole Sodium [Protonix] 40 mg PO 04/08/20 [History] Hx Tetanus, Diphtheria Vaccination/Date Given: Yes Hx Influenza Vaccination/Date Given: No Hx Pneumococcal Vaccination/Date Given: No Immunizations Up to Date: Yes Travel Risk - International Travel Have you traveled outside of the country in past 3 weeks: No - Coronavirus Screening Are you exhibiting any of the following symptoms?: Yes Symptoms: Fever, Cough: New Onset, Vomiting/Diarrhea Close contact with a COVID-19 positive Pt in past 14-21 Days: No - Review of Systems Constitutional: Fever, Fatigue Eyes: No Symptoms Ears, Nose, & Throat: Nose Discharge, No Ear Pain, No Ear Discharge, No Hearing Changes, No Tinnitus, No Nose Pain, No Nose Congestion, No Sinus Drainage, No Epistaxis, No Mouth Pain, No Mouth Swelling, No Loose Teeth, No Throat Pain, No Throat Swelling, No Hoarse, No Painful Swallowing, No Snoring, No Stridor Respiratory: No Symptoms, Cough Cardiac: No Symptoms Abdominal/Gastrointestinal: Abdominal Pain, Nausea, Diarrhea, No Vomiting, No Constipation, No Hematemesis, No Hematochezia, No Melena, No Dysphagia, No Appet ite Changes Genitourinary Symptoms: No Symptoms Musculoskeletal: No Symptoms Skin: No Symptoms Neurological: No Symptoms Psychological: No Symptoms Endocrine: No Symptoms Hematologic/Lymphatic: No Symptoms Immunological/Allergic: No Symptoms - Past Medical History Pertinent Past Medical History: Yes Neurological History: TIA ENT History: No Pertinent History Cardiac History: Arrhythmia, High Cholesterol, Hypertension Respiratory History: Bronchitis Endocrine Medical History: Diabetes Type II Musculoskeletal History: Arthritis GI Medical History: GERD History: No Pertinent History Psycho-Social History: Anxiety Male Reproductive Disorders: Prostate Cancer Other Medical History: gout, 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 - Past Surgical History Past Surgical History: Yes Neuro Surgical History: No Pertinent History Cardiac: No Pertinent History Respiratory: No Pertinent History Gastrointestinal: Hemorrhoidectomy Genitourinary: No Pertinent History Musculoskeletal: Orthopedic Surgery Male Surgical History: No Pertinent History Other Surgical History: LT ARM - Social History Smoking Status: Former smoker Exposure to second hand smoke: Yes Drug Use: none Patient Lives Alone: No Significant Family History: no pertinent family hx - Nursing Vital Signs Nursing Vital Signs: Initial Vital Signs Temperature 99.0 F 05/26/20 19:58 Pulse Rate 65 05/26/20 19:58 Respiratory Rate 18 05/26/20 19:58 Blood Pressure 157/71 05/26/20 19:58 O2 Sat by Pulse Oximetry 96 05/26/20 19:58 Pain Scale Pain Intensity 0 - Physical Exam General Appearance: no apparent distress Eye Exam: PERRL/EOMI, eyes nml inspection Ears, Nose, Throat Exam: normal ENT inspection, TMs normal, pharynx normal, moist mucous membranes Neck Exam: normal inspection, non-tender, supple, full range of motion, No meningismus, No mass, No Brudzinski, No Kernig's, No carotid bruit Respiratory Exam: normal breath sounds, lungs clear, airway intact, No respiratory distress Cardiovascular Exam: regular rate/rhythm, normal heart sounds, normal peripheral pulses, No murmur, No edema Gastrointestinal/Abdomen Exam: soft, normal bowel sounds, No tenderness, No distention Back Exam: normal inspection, normal range of motion, No CVA tenderness Extremity Exam: normal inspection, normal range of motion Neurologic Exam: alert, oriented x 3, cooperative, broke beater II-XII nml as tested, normal mood/affect, nml cerebellar function, sensation nml, No motor deficits, No sensory deficit Skin Exam: normal color, warm, dry, No rash Lymphatic Exam: No adenopathy SpO2 Interpretation: normal SpO2: 96 O2 Delivery: Room Air - Course Nursing assessment & vital signs reviewed: Yes EKG Interpreted by Me: RATE (Sinus lovely/Increased QT-Qtc/LVH/No acute ST-T wave changes) - CT Exams Chest CT Interpretation: Discussed w/radiologist (Nothing acute) Ordered Tests: Active Orders 24 hr Category Date Time Status Heart-Healthy Diet Diet 10/22/20 Breakfast Active CHEST WITHOUT CONTRAST [CT] Stat Exams 05/26/20 20:10 Taken CBC W DIFF AM.LAB Lab 05/27/20 04:00 Ordered CBC W DIFF Stat Lab 05/26/20 20:25 Completed CMP AM.LAB Lab 05/27/20 04:00 Ordered CMP Stat Lab 05/26/20 20:25 Completed CULTURE,URINE Stat Lab 05/26/20 22:56 Received Lactic Acid Stat Lab 05/26/20 20:09 Completed Manual Differential NC Stat Lab 05/26/20 20:25 Completed NT PRO BNP Stat Lab 05/26/20 20:25 Completed PROTIME WITH INR Stat Lab 05/26/20 20:25 Completed PTT Stat Lab 05/26/20 20:25 Completed TROPONIN Q3H Lab 05/26/20 20:25 Completed TROPONIN Q3H Lab 05/26/20 23:06 Completed TROPONIN Q3H Lab 05/27/20 02:15 Ordered TROPONIN Q3H Lab 05/27/20 05:15 Ordered TROPONIN Q3H Lab 05/27/20 08:15 Ordered UA W/RFX UR CULTURE Stat Lab 05/26/20 22:56 Completed EKG STAT RT 05/26/20 20:12 Completed Medication Summary Generic Name Dose Route Start Last Admin Trade Name Freq PRN Reason Stop Dose Admin Sodium Chloride 1,000 mls @ 80 mls/hr 05/26/20 23:45 Sodium Chloride 0.9% 1000 Ml IV 06/25/20 23:44 .[id number] DRAKE Ondansetron HCl 4 mg 05/26/20 23:45 Zofran 4 Mg/2 Ml Vial IV 06/25/20 23:44 Q6H PRN PRN NAUSEA/VOMITING Lab/Rad Data: Laboratory Result Diagrams 05/26/20 20:25 05/26/20 20:25 Laboratory Results 05/26/20 05/26/20 05/26/20 Range/Units 23:06 22:56 22:25 WBC (4.0-10.5) K/mm3 RBC (4.1-5.6) M/mm3 Hgb (12.5-18.0) gm/dl Hct (42-50) % MCV (78-100) fl MCH (26-32) pg MCHC (32-36) g/dl RDW (11.5-14.0) % Plt Count (150-450) K/mm3 MPV (7.5-11.0) fl Segmented Neutrophils (36.-66.) % Band Neutrophils (0.0-2.0) % Lymphocytes (Manual) (24-44) % Monocytes (Manual) (0.0-12.0) % Eosinophils (Manual) (0.00-3.0) % Platelet Estimate (NORMAL) RBC Morphology PT (8.83-12.87) SECONDS INR (0.8-3.0) APTT (24.1-36.1) SECONDS Sodium (137-145) mmol/L Potassium (3.5-5.1) mmol/L Chloride (98-107) mmol/L Carbon Dioxide (22-30) mmol/L Anion Gap (5-15) MEQ/L BUN (9-20) mg/dL Creatinine (0.66-1.25) mg/dL Estimated GFR ML/MIN Glucose (74-106) mg/dL Lactic Acid (0.4-2.0) Calcium (8.4-10.2) mg/dL Total Bilirubin (0.2-1.3) mg/dL AST (17-59) U/L ALT (0-50) U/L Alkaline Phosphatase (38-126) U/L Troponin I 0.047 H* (0.000-0.034) ng/mL NT-Pro-B Natriuret Pep (0-1800) pg/mL Serum Total Protein (6.3-8.2) g/dL Albumin (3.5-5.0) g/dL Urine Color STRAW (YELLOW) Urine Appearance CLEAR (CLEAR) Urine pH 6.0 (5-6) Ur Specific [place] 1.003 (1.005-1.025) Urine Protein NEGATIVE (Negative) Urine Ketones NEGATIVE (NEGATIVE) Urine Blood SMALL (0-5) Srinivasan/ul Urine Nitrite NEGATIVE (NEGATIVE) Urine Bilirubin NEGATIVE (NEGATIVE) Urine Urobilinogen NEGATIVE (0-1) mg/dL Ur Leukocyte Esterase MODERATE (NEGATIVE) Urine WBC (Auto) 6-10 (0-5) /HPF Urine RBC (Auto) NONE (0-2) /HPF U Epithel Cells (Auto) NONE (FEW) /HPF Urine Bacteria (Auto) NONE (NEGATIVE) /HPF Urine Culture Reflexed YES (NO) Urine Glucose NEGATIVE (NEGATIVE) mg/dL SARS-CoV-2 (PCR) NEGATIVE (NEGATIVE) 05/26/20 05/26/20 05/26/20 Range/Units 20:25 20:25 20:25 WBC (4.0-10.5) K/mm3 RBC (4.1-5.6) M/mm3 Hgb (12.5-18.0) gm/dl Hct (42-50) % MCV (78-100) fl MCH (26-32) pg MCHC (32-36) g/dl RDW (11.5-14.0) % Plt Count (150-450) K/mm3 MPV (7.5-11.0) fl Segmented Neutrophils (36.-66.) % Band Neutrophils (0.0-2.0) % Lymphocytes (Manual) (24-44) % Monocytes (Manual) (0.0-12.0) % Eosinophils (Manual) (0.00-3.0) % Platelet Estimate (NORMAL) RBC Morphology PT 14.1 H (8.83-12.87) SECONDS INR 1.25 (0.8-3.0) APTT 30.1 (24.1-36.1) SECONDS Sodium 137 (137-145) mmol/L Potassium 3.5 (3.5-5.1) mmol/L Chloride 107 (98-107) mmol/L Carbon Dioxide 22 (22-30) mmol/L Anion Gap 11.4 (5-15) MEQ/L BUN 12 (9-20) mg/dL Creatinine 1.10 (0.66-1.25) mg/dL Estimated GFR > 60.0 ML/MIN Glucose 99 (74-106) mg/dL Lactic Acid (0.4-2.0) Calcium 8.4 (8.4-10.2) mg/dL Total Bilirubin 0.50 (0.2-1.3) mg/dL AST 15 L (17-59) U/L ALT 11 (0-50) U/L Alkaline Phosphatase 104 (38-126) U/L Troponin I 0.044 H* (0.000-0.034) ng/mL NT-Pro-B Natriuret Pep 1190 (0-1800) pg/mL Serum Total Protein 6.3 (6.3-8.2) g/dL Albumin 3.6 (3.5-5.0) g/dL Urine Color (YELLOW) Urine Appearance (CLEAR) Urine pH (5-6) Ur Specific [place] (1.005-1.025) Urine Protein (Negative) Urine Ketones (NEGATIVE) Urine Blood (0-5) Srinivasan/ul Urine Nitrite (NEGATIVE) Urine Bilirubin (NEGATIVE) Urine Urobilinogen (0-1) mg/dL Ur Leukocyte Esterase (NEGATIVE) Urine WBC (Auto) (0-5) /HPF Urine RBC (Auto) (0-2) /HPF U Epithel Cells (Auto) (FEW) /HPF Urine Bacteria (Auto) (NEGATIVE) /HPF Urine Culture Reflexed (NO) Urine Glucose (NEGATIVE) mg/dL SARS-CoV-2 (PCR) (NEGATIVE) 05/26/20 05/26/20 Range/Units 20:25 20:09 WBC 5.2 (4.0-10.5) K/mm3 RBC 3.40 L (4.1-5.6) M/mm3 Hgb 9.1 L (12.5-18.0) gm/dl Hct 29.2 L (42-50) % MCV 85.9 (78-100) fl MCH 26.8 (26-32) pg MCHC 31.2 L (32-36) g/dl RDW 16.0 H (11.5-14.0) % Plt Count 130 L (150-450) K/mm3 MPV 10.1 (7.5-11.0) fl Segmented Neutrophils 50 (36.-66.) % Band Neutrophils 3 H (0.0-2.0) % Lymphocytes (Manual) 34 (24-44) % Monocytes (Manual) 11 (0.0-12.0) % Eosinophils (Manual) 2 (0.00-3.0) % Platelet Estimate NORMAL (NORMAL) RBC Morphology NORMAL PT (8.83-12.87) SECONDS INR (0.8-3.0) APTT (24.1-36.1) SECONDS Sodium (137-145) mmol/L Potassium (3.5-5.1) mmol/L Chloride (98-107) mmol/L Carbon Dioxide (22-30) mmol/L Anion Gap (5-15) MEQ/L BUN (9-20) mg/dL Creatinine (0.66-1.25) mg/dL Estimated GFR ML/MIN Glucose (74-106) mg/dL Lactic Acid 1.4 (0.4-2.0) Calcium (8.4-10.2) mg/dL Total Bilirubin (0.2-1.3) mg/dL AST (17-59) U/L ALT (0-50) U/L Alkaline Phosphatase (38-126) U/L Troponin I (0.000-0.034) ng/mL NT-Pro-B Natriuret Pep (0-1800) pg/mL Serum Total Protein (6.3-8.2) g/dL Albumin (3.5-5.0) g/dL Urine Color (YELLOW) Urine Appearance (CLEAR) Urine pH (5-6) Ur Specific [place] (1.005-1.025) Urine Protein (Negative) Urine Ketones (NEGATIVE) Urine Blood (0-5) Srinivasan/ul Urine Nitrite (NEGATIVE) Urine Bilirubin (NEGATIVE) Urine Urobilinogen (0-1) mg/dL Ur Leukocyte Esterase (NEGATIVE) Urine WBC (Auto) (0-5) /HPF Urine RBC (Auto) (0-2) /HPF U Epithel Cells (Auto) (FEW) /HPF Urine Bacteria (Auto) (NEGATIVE) /HPF Urine Culture Reflexed (NO) Urine Glucose (NEGATIVE) mg/dL SARS-CoV-2 (PCR) (NEGATIVE) - Progress Progress: unchanged Progress Note: 05/26/20 23:[address] Wolf Discussed with DrClaudia: Other Counseled pt/family regarding: lab results, diagnosis, rad results - Departure Departure Disposition: Observation Clinical Impression: Elevated troponin Condition: Stable Critical Care Time: No
[2020-05-26 20:50] LABS: INR 1.25 (0.8-3.0); PROTIME 14.1 SECONDS (8.83-12.87)
[2020-05-26 20:53] LABS: PTT 30.1 SECONDS (24.1-36.1)
[2020-05-26 21:03] LABS: ALBUMIN 3.6 g/dL (3.5-5.0); ALKALINE PHOSPHATASE 104 U/L (38-126); ANION GAP 11.4 MEQ/L (5-15); BLOOD UREA NITROGEN 12 mg/dL (9-20); CHLORIDE 107 mmol/L (98-107); Calcium 8.4 mg/dL (8.4-10.2); Carbon Dioxide 22 mmol/L (22-30); EST GLOMERULAR FILTRATION RATE > 60.0 ML/MIN; Glucose 99 mg/dL (74-106); NT PRO BNP 1190 pg/mL (0-1800); Potassium 3.5 mmol/L (3.5-5.1); SGOT/AST 15 U/L (17-59); SGPT/ALT 11 U/L (0-50); SODIUM 137 mmol/L (137-145); Total Protein 6.3 g/dL (6.3-8.2)
[2020-05-26 22:09] LABS: BAND 3 % (0.0-2.0); Eosinophil 2 % (0.00-3.0); Lymphocytes 34 % (24-44); Monocyte 11 % (0.0-12.0); Neutrophils 50 % (36.-66.); Platelet Estimate NORMAL (NORMAL); Total Cells Counted 100
[2020-05-26 23:15] LABS: Appearance CLEAR (CLEAR); Bilirubin NEGATIVE (NEGATIVE); Blood SMALL Ery/ul (0-5); Glucose NEGATIVE (NEGATIVE); Ketones NEGATIVE (NEGATIVE); Leukocyte Esterase MODERATE (NEGATIVE); Nitrite NEGATIVE (NEGATIVE); Protein,Urine Dip NEGATIVE (Negative); Specific Gravity 1.003 (1.005-1.025); Urobilinogen NEGATIVE mg/dL (0-1)
[2020-05-26] MEDS ORDERED: Sodium Chloride 0.9% 1000 ML 1,000 ML IV SCH (23:45)
[2020-05-26] MEDS ORDERED: Zofran 4 MG/2 ML VIAL IV PRN (23:45)
[2020-05-27 06:04] LABS: Hematocrit 31.4 % (42-50); Hemoglobin 9.8 gm/dl (12.5-18.0); Mean Cell Volume 85.6 fl (78-100); Mean Corpuscular Hemoglobin 26.7 pg (26-32); Mean Corpuscular Hgb Concent. 31.2 g/dl (32-36); Mean Platelet Volume 10.5 fl (7.5-11.0); Platelet Count 126 K/mm3 (150-450); Red Blood Count 3.67 M/mm3 (4.1-5.6)
[2020-05-27 06:24] LABS: ALBUMIN 3.4 g/dL (3.5-5.0); ALKALINE PHOSPHATASE 113 U/L (38-126); ANION GAP 9.8 MEQ/L (5-15); BLOOD UREA NITROGEN 10 mg/dL (9-20); CHLORIDE 109 mmol/L (98-107); Calcium 8.6 mg/dL (8.4-10.2); Carbon Dioxide 23 mmol/L (22-30); Creatinine 1 0.99 mg/dL (0.66-1.25); EST GLOMERULAR FILTRATION RATE > 60.0 ML/MIN; Glucose 110 mg/dL (74-106); Potassium 3.5 mmol/L (3.5-5.1); SGOT/AST 15 U/L (17-59); SGPT/ALT 11 U/L (0-50); SODIUM 138 mmol/L (137-145); Total Protein 6.1 g/dL (6.3-8.2)
[2020-05-27 06:30] LABS: Lymphocytes 63 % (24-44); Monocyte 1 % (0.0-12.0); Neutrophils 36 % (36.-66.); Total Cells Counted 100
[2020-05-27 06:31] LABS: Platelet Estimate NORMAL (NORMAL)
--- NOTE | 2020-05-27 09:13 | XRAY ---
Indication: Fever and cough. Multiple contiguous axial images obtained through the chest without contrast as ordered. Comparison: February 28, 2020. Lungs again hyperinflated with mild bilateral dependent atelectasis, minimal bibasilar fibrosis/scarring, and a few scattered tiny calcified granulomas. No new pulmonary mass, infiltrate, consolidation, or effusion. Heart is not enlarged. Aorta remains mildly calcified without aneurysmal dilatation. Stable small subcarinal and bilateral hilar calcified nodes. No pathologic mediastinal lymphadenopathy. Stable small hiatal hernia. Bony thorax intact again with osteopenia and flowing osteophytes throughout the spine. Limited upper abdomen including adrenal glands are unremarkable. Impression: 1. Continued stable atelectasis/fibrosis/scarring, small hiatal hernia, chronic bony findings, and old granulomatous disease. 2. Remaining CT chest without contrast exam is negative.
[2020-05-27] MEDS ORDERED: Reglan 10 MG PO SCH (11:30)
--- NOTE | 2020-05-27 11:58 | PCM.HP ---
History of Present Illness - Chief Complaint Chief Complaint: weakness, dizziness for 1-2 days History of Present Illness: is a 89 year old male. w cough/coryza/nausea/loose stool/generalized abdominal pain which has resolved/borderline fever x 1 day. Pt denies chest pain/dyspnea/focal weakness/dysuria/hematuria. Timing/Duration: other (1 day) Cough Quality/Degree: dry cough Possible Cause: no prior episodes Modifying Factors: Improves With: nothing Associated Symptoms: fever, cough, nasal drainage, No chills, No chest pain/soreness, No dizziness, No earache, No facial pain, No headache, No lightheadedness, No muscle aches, No nasal congestion, No shortness of breath, No sinus infection, No sore throat, No wheezing - Review of Systems Constitutional: Lethargy, Weakness, No Fever, No Chills Eyes: No Symptoms Ears, Nose, & Throat: No Symptoms Respiratory: No Cough, No Short Of Breath Cardiac: No Chest Pain, No Edema, No Syncope Abdominal/Gastrointestinal: No Abdominal Pain, No Nausea, No Vomiting, No Diarrhea Genitourinary Symptoms: No Dysuria Musculoskeletal: No Back Pain, No Neck Pain Skin: No Rash Neurological: No Dizziness, No Focal Weakness, No Sensory Changes Psychological: No Symptoms Endocrine: No Symptoms Hematologic/Lymphatic: No Symptoms Immunological/Allergic: No Symptoms Medications & Allergies Home Medications: Home Medication List Allopurinol 100 mg [Zyloprim 100 mg] 100 mg PO DAILY 08/11/19 [History Confirmed 05/27/20] Glimepiride 1 mg PO DAILY 08/11/19 [History Confirmed 05/27/20] Sucralfate 1 gm [Carafate 1 GM] 1 gm PO BID 08/11/19 [History Confirmed 05/27/20] Tamsulosin HCl 0.4 mg [Flomax 0.4 MG] 0.4 mg PO DAILY 08/11/19 [History Confirmed 05/27/20] Metoclopramide HCl 5 mg PO TID 08/19/19 [History Confirmed 05/27/20] clonazePAM [Clonazepam] 0.5 mg PO BID 08/19/19 [History Confirmed 05/27/20] Gabapentin 100 cap PO BID 02/28/20 [History Confirmed 05/27/20] Metoprolol Tartrate 100 mg PO DAILY #0 03/01/20 [Rx Confirmed 05/27/20] Magnesium Oxide 400 mg [Mag-Ox 400] 400 mg PO DAILY 04/08/20 [History Confirmed 05/27/20] Pantoprazole Sodium [Protonix] 40 mg PO DAILY 04/08/20 [History Confirmed 05/27/20] Atorvastatin Calcium 20 mg PO HS 05/27/20 [History Confirmed 05/27/20] Losartan Potassium [Cozaar] 25 mg PO HS 05/27/20 [History Confirmed 05/27/20] Omeprazole 40 mg PO DAILY 05/27/20 [History Confirmed 05/27/20] Allergies/Adverse Reactions: Allergies Allergy/AdvReac Type Severity Reaction Status Date / Time aspirin AdvReac Verified 05/26/20 20:13 - Past Medical History Past Medical History: Yes Neurological History: TIA ENT History: No Pertinent History Cardiac History: Arrhythmia, High Cholesterol, Hypertension Respiratory History: Bronchitis Endocrine Medical History: Diabetes Type II Musculoskelatal History: Arthritis GI Medical History: GERD History: No Pertinent History Pyscho-Social History: Anxiety Male Reproductive Disorders: Prostate Cancer Comment: gout, 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 - Past Surgical History Past Surgical History: Yes Neuro Surgical History: No Pertinent History Cardiac History: No Pertinent History Respiratory Surgery: No Pertinent History GI Surgical History: Hemorrhoidectomy Genitourinary Surgical Hx: No Pertinent History Musculskeletal Surgical Hx: Orthopedic Surgery Male Surgical History: No Pertinent History Other Surgical History: LT ARM - Social History Smoking Status: Former smoker Exposure to second hand smoke: Yes Alcohol: None Drug Use: none Significant Family History: no pertinent family hx - Physical Exam Vital Signs: Vital Signs - 24 hr Temp Pulse Resp BP Pulse Ox 05/27/20 08:00 97.8 F 61 20 166/79 93 L 05/27/20 01:40 96 05/27/20 00:33 59 L 16 179/90 98 05/27/20 00:05 63 18 172/91 97 05/27/20 00:00 98.2 F 64 16 138/70 97 05/26/20 23:06 55 L 18 180/92 97 05/26/20 22:06 54 L 164/78 96 05/26/20 21:43 53 L 05/26/20 21:07 58 L 18 162/69 96 05/26/20 19:58 99.0 F 65 18 157/71 96 General Appearance: no apparent distress, alert Neurologic Exam: alert, oriented x 3, normal mood/affect, sensation nml, No motor deficits Eye Exam: PERRL/EOMI, eyes nml inspection Ears, Nose, Throat Exam: normal ENT inspection, TMs normal, pharynx normal, moist mucous membranes Neck Exam: normal inspection, non-tender, supple, full range of motion Respiratory Exam: normal breath sounds, lungs clear, No respiratory distress Cardiovascular Exam: regular rate/rhythm, normal heart sounds, normal peripheral pulses Gastrointestinal/Abdomen Exam: soft, normal bowel sounds, No tenderness, No mass Back Exam: normal inspection, normal range of motion, No CVA tenderness, No vertebral tenderness Extremity Exam: normal inspection, normal range of motion, pelvis stable Skin Exam: normal color, warm, dry, No rash Lymphatic Exam: No adenopathy Results - Labs Lab/Micro Results: Lab Results-Last 24 Hours 05/26/20 05/26/20 05/26/20 Range/Units 20:09 20:25 20:25 WBC 5.2 (4.0-10.5) K/mm3 RBC 3.40 L (4.1-5.6) M/mm3 Hgb 9.1 L (12.5-18.0) gm/dl Hct 29.2 L (42-50) % MCV 85.9 (78-100) fl MCH 26.8 (26-32) pg MCHC 31.2 L (32-36) g/dl RDW 16.0 H (11.5-14.0) % Plt Count 130 L (150-450) K/mm3 MPV 10.1 (7.5-11.0) fl Segmented Neutrophils 50 (36.-66.) % Band Neutrophils 3 H (0.0-2.0) % Lymphocytes (Manual) 34 (24-44) % Monocytes (Manual) 11 (0.0-12.0) % Eosinophils (Manual) 2 (0.00-3.0) % Platelet Estimate NORMAL (NORMAL) RBC Morphology NORMAL PT (8.83-12.87) SECONDS INR (0.8-3.0) APTT (24.1-36.1) SECONDS Sodium 137 (137-145) mmol/L Potassium 3.5 (3.5-5.1) mmol/L Chloride 107 (98-107) mmol/L Carbon Dioxide 22 (22-30) mmol/L Anion Gap 11.4 (5-15) MEQ/L BUN 12 (9-20) mg/dL Creatinine 1.10 (0.66-1.25) mg/dL Estimated GFR > 60.0 ML/MIN Glucose 99 (74-106) mg/dL Lactic Acid 1.4 (0.4-2.0) Calcium 8.4 (8.4-10.2) mg/dL Total Bilirubin 0.50 (0.2-1.3) mg/dL AST 15 L (17-59) U/L ALT 11 (0-50) U/L Alkaline Phosphatase 104 (38-126) U/L Troponin I (0.000-0.034) ng/mL NT-Pro-B Natriuret Pep 1190 (0-1800) pg/mL Serum Total Protein 6.3 (6.3-8.2) g/dL Albumin 3.6 (3.5-5.0) g/dL Urine Color (YELLOW) Urine Appearance (CLEAR) Urine pH (5-6) Ur Specific Barney (1.005-1.025) Urine Protein (Negative) Urine Ketones (NEGATIVE) Urine Blood (0-5) Srinivasan/ul Urine Nitrite (NEGATIVE) Urine Bilirubin (NEGATIVE) Urine Urobilinogen (0-1) mg/dL Ur Leukocyte Esterase (NEGATIVE) Urine WBC (Auto) (0-5) /HPF Urine RBC (Auto) (0-2) /HPF U Epithel Cells (Auto) (FEW) /HPF Urine Bacteria (Auto) (NEGATIVE) /HPF Urine Culture Reflexed (NO) Urine Glucose (NEGATIVE) mg/dL SARS-CoV-2 (PCR) (NEGATIVE) 05/26/20 05/26/20 05/26/20 Range/Units 20:25 20:25 22:25 WBC (4.0-10.5) K/mm3 RBC (4.1-5.6) M/mm3 Hgb (12.5-18.0) gm/dl Hct (42-50) % MCV (78-100) fl MCH (26-32) pg MCHC (32-36) g/dl RDW (11.5-14.0) % Plt Count (150-450) K/mm3 MPV (7.5-11.0) fl Segmented Neutrophils (36.-66.) % Band Neutrophils (0.0-2.0) % Lymphocytes (Manual) (24-44) % Monocytes (Manual) (0.0-12.0) % Eosinophils (Manual) (0.00-3.0) % Platelet Estimate (NORMAL) RBC Morphology PT 14.1 H (8.83-12.87) SECONDS INR 1.25 (0.8-3.0) APTT 30.1 (24.1-36.1) SECONDS Sodium (137-145) mmol/L Potassium (3.5-5.1) mmol/L Chloride (98-107) mmol/L Carbon Dioxide (22-30) mmol/L Anion Gap (5-15) MEQ/L BUN (9-20) mg/dL Creatinine (0.66-1.25) mg/dL Estimated GFR ML/MIN Glucose (74-106) mg/dL Lactic Acid (0.4-2.0) Calcium (8.4-10.2) mg/dL Total Bilirubin (0.2-1.3) mg/dL AST (17-59) U/L ALT (0-50) U/L Alkaline Phosphatase (38-126) U/L Troponin I 0.044 H* (0.000-0.034) ng/mL NT-Pro-B Natriuret Pep (0-1800) pg/mL Serum Total Protein (6.3-8.2) g/dL Albumin (3.5-5.0) g/dL Urine Color (YELLOW) Urine Appearance (CLEAR) Urine pH (5-6) Ur Specific Barney (1.005-1.025) Urine Protein (Negative) Urine Ketones (NEGATIVE) Urine Blood (0-5) Srinivasan/ul Urine Nitrite (NEGATIVE) Urine Bilirubin (NEGATIVE) Urine Urobilinogen (0-1) mg/dL Ur Leukocyte Esterase (NEGATIVE) Urine WBC (Auto) (0-5) /HPF Urine RBC (Auto) (0-2) /HPF U Epithel Cells (Auto) (FEW) /HPF Urine Bacteria (Auto) (NEGATIVE) /HPF Urine Culture Reflexed (NO) Urine Glucose (NEGATIVE) mg/dL SARS-CoV-2 (PCR) NEGATIVE (NEGATIVE) 05/26/20 05/26/20 05/27/20 Range/Units 22:56 23:06 02:15 WBC (4.0-10.5) K/mm3 RBC (4.1-5.6) M/mm3 Hgb (12.5-18.0) gm/dl Hct (42-50) % MCV (78-100) fl MCH (26-32) pg MCHC (32-36) g/dl RDW (11.5-14.0) % Plt Count (150-450) K/mm3 MPV (7.5-11.0) fl Segmented Neutrophils (36.-66.) % Band Neutrophils (0.0-2.0) % Lymphocytes (Manual) (24-44) % Monocytes (Manual) (0.0-12.0) % Eosinophils (Manual) (0.00-3.0) % Platelet Estimate (NORMAL) RBC Morphology PT (8.83-12.87) SECONDS INR (0.8-3.0) APTT (24.1-36.1) SECONDS Sodium (137-145) mmol/L Potassium (3.5-5.1) mmol/L Chloride (98-107) mmol/L Carbon Dioxide (22-30) mmol/L Anion Gap (5-15) MEQ/L BUN (9-20) mg/dL Creatinine (0.66-1.25) mg/dL Estimated GFR ML/MIN Glucose (74-106) mg/dL Lactic Acid (0.4-2.0) Calcium (8.4-10.2) mg/dL Total Bilirubin (0.2-1.3) mg/dL AST (17-59) U/L ALT (0-50) U/L Alkaline Phosphatase (38-126) U/L Troponin I 0.047 H* 0.043 H* (0.000-0.034) ng/mL NT-Pro-B Natriuret Pep (0-1800) pg/mL Serum Total Protein (6.3-8.2) g/dL Albumin (3.5-5.0) g/dL Urine Color STRAW (YELLOW) Urine Appearance CLEAR (CLEAR) Urine pH 6.0 (5-6) Ur Specific Barney 1.003 (1.005-1.025) Urine Protein NEGATIVE (Negative) Urine Ketones NEGATIVE (NEGATIVE) Urine Blood SMALL (0-5) Srinivasan/ul Urine Nitrite NEGATIVE (NEGATIVE) Urine Bilirubin NEGATIVE (NEGATIVE) Urine Urobilinogen NEGATIVE (0-1) mg/dL Ur Leukocyte Esterase MODERATE (NEGATIVE) Urine WBC (Auto) 6-10 (0-5) /HPF Urine RBC (Auto) NONE (0-2) /HPF U Epithel Cells (Auto) NONE (FEW) /HPF Urine Bacteria (Auto) NONE (NEGATIVE) /HPF Urine Culture Reflexed YES (NO) Urine Glucose NEGATIVE (NEGATIVE) mg/dL SARS-CoV-2 (PCR) (NEGATIVE) 05/27/20 05/27/20 05/27/20 Range/Units 05:40 05:40 05:40 WBC 5.0 (4.0-10.5) K/mm3 RBC 3.67 L (4.1-5.6) M/mm3 Hgb 9.8 L (12.5-18.0) gm/dl Hct 31.4 L (42-50) % MCV 85.6 (78-100) fl MCH 26.7 (26-32) pg MCHC 31.2 L (32-36) g/dl RDW 16.0 H (11.5-14.0) % Plt Count 126 L (150-450) K/mm3 MPV 10.5 (7.5-11.0) fl Segmented Neutrophils 36 (36.-66.) % Band Neutrophils (0.0-2.0) % Lymphocytes (Manual) 63 H (24-44) % Monocytes (Manual) 1 (0.0-12.0) % Eosinophils (Manual) (0.00-3.0) % Platelet Estimate NORMAL (NORMAL) RBC Morphology NORMAL PT (8.83-12.87) SECONDS INR (0.8-3.0) APTT (24.1-36.1) SECONDS Sodium 138 (137-145) mmol/L Potassium 3.5 (3.5-5.1) mmol/L Chloride 109 H (98-107) mmol/L Carbon Dioxide 23 (22-30) mmol/L Anion Gap 9.8 (5-15) MEQ/L BUN 10 (9-20) mg/dL Creatinine 0.99 (0.66-1.25) mg/dL Estimated GFR > 60.0 ML/MIN Glucose 110 H (74-106) mg/dL Lactic Acid (0.4-2.0) Calcium 8.6 (8.4-10.2) mg/dL Total Bilirubin 0.50 (0.2-1.3) mg/dL AST 15 L (17-59) U/L ALT 11 (0-50) U/L Alkaline Phosphatase 113 (38-126) U/L Troponin I 0.045 H* (0.000-0.034) ng/mL NT-Pro-B Natriuret Pep (0-1800) pg/mL Serum Total Protein 6.1 L (6.3-8.2) g/dL Albumin 3.4 L (3.5-5.0) g/dL Urine Color (YELLOW) Urine Appearance (CLEAR) Urine pH (5-6) Ur Specific Barney (1.005-1.025) Urine Protein (Negative) Urine Ketones (NEGATIVE) Urine Blood (0-5) Srinivasan/ul Urine Nitrite (NEGATIVE) Urine Bilirubin (NEGATIVE) Urine Urobilinogen (0-1) mg/dL Ur Leukocyte Esterase (NEGATIVE) Urine WBC (Auto) (0-5) /HPF Urine RBC (Auto) (0-2) /HPF U Epithel Cells (Auto) (FEW) /HPF Urine Bacteria (Auto) (NEGATIVE) /HPF Urine Culture Reflexed (NO) Urine Glucose (NEGATIVE) mg/dL SARS-CoV-2 (PCR) (NEGATIVE) 05/27/20 Range/Units 08:15 WBC (4.0-10.5) K/mm3 RBC (4.1-5.6) M/mm3 Hgb (12.5-18.0) gm/dl Hct (42-50) % MCV (78-100) fl MCH (26-32) pg MCHC (32-36) g/dl RDW (11.5-14.0) % Plt Count (150-450) K/mm3 MPV (7.5-11.0) fl Segmented Neutrophils (36.-66.) % Band Neutrophils (0.0-2.0) % Lymphocytes (Manual) (24-44) % Monocytes (Manual) (0.0-12.0) % Eosinophils (Manual) (0.00-3.0) % Platelet Estimate (NORMAL) RBC Morphology PT (8.83-12.87) SECONDS INR (0.8-3.0) APTT (24.1-36.1) SECONDS Sodium (137-145) mmol/L Potassium (3.5-5.1) mmol/L Chloride (98-107) mmol/L Carbon Dioxide (22-30) mmol/L Anion Gap (5-15) MEQ/L BUN (9-20) mg/dL Creatinine (0.66-1.25) mg/dL Estimated GFR ML/MIN Glucose (74-106) mg/dL Lactic Acid (0.4-2.0) Calcium (8.4-10.2) mg/dL Total Bilirubin (0.2-1.3) mg/dL AST (17-59) U/L ALT (0-50) U/L Alkaline Phosphatase (38-126) U/L Troponin I 0.042 H* (0.000-0.034) ng/mL NT-Pro-B Natriuret Pep (0-1800) pg/mL Serum Total Protein (6.3-8.2) g/dL Albumin (3.5-5.0) g/dL Urine Color (YELLOW) Urine Appearance (CLEAR) Urine pH (5-6) Ur Specific Barney (1.005-1.025) Urine Protein (Negative) Urine Ketones (NEGATIVE) Urine Blood (0-5) Srinivasan/ul Urine Nitrite (NEGATIVE) Urine Bilirubin (NEGATIVE) Urine Urobilinogen (0-1) mg/dL Ur Leukocyte Esterase (NEGATIVE) Urine WBC (Auto) (0-5) /HPF Urine RBC (Auto) (0-2) /HPF U Epithel Cells (Auto) (FEW) /HPF Urine Bacteria (Auto) (NEGATIVE) /HPF Urine Culture Reflexed (NO) Urine Glucose (NEGATIVE) mg/dL SARS-CoV-2 (PCR) (NEGATIVE) - Radiology Impressions Radiology Exams & Impressions: Radiology Procedures Category Date Time Status CHEST WITHOUT CONTRAST [CT] Stat Exams 05/26/20 20:10 Completed Assessment/Plan (1) Elevated troponin Current Visit: Yes Status: Acute Code(s): R77.8 - OTHER SPECIFIED ABNORMALITIES OF PLASMA PROTEINS (2) CHF (congestive heart failure), NYHA class IV Current Visit: Yes Status: Acute Qualifiers: Congestive heart failure chronicity: acute on chronic Code(s): I50.9 - HEART FAILURE, UNSPECIFIED (3) COPD (chronic obstructive pulmonary disease) Current Visit: No Status: Acute Qualifiers: COPD type: unspecified COPD Qualified Code(s): J44.9 - Chronic obstructive pulmonary disease, unspecified
[2020-05-27] MEDS ORDERED: Klonopin 0.5 MG PO SCH (12:00)
[2020-05-27] MEDS ORDERED: Protonix 40MG Tablet PO SCH (12:00)
[2020-05-27] MEDS ORDERED: ZYLOPRIM 100 MG PO SCH (12:00)
[2020-05-27] MEDS ORDERED: Neurontin 100 MG PO SCH (12:00)
[2020-05-27] MEDS ORDERED: Amaryl 2 MG PO SCH (12:00)
[2020-05-27] MEDS ORDERED: MAG-OX 400 PO SCH (12:00)
[2020-05-27] MEDS ORDERED: Lopressor 50 MG PO SCH (12:00)
[2020-05-27] MEDS ORDERED: Flomax 0.4 MG PO SCH (12:00)
[2020-05-27 12:09] VITALS: PULSE 76; O2SAT 94
[2020-05-27 12:16] VITALS: BP 144/78
[2020-05-27] MEDS ORDERED: METOCLOPRAMIDE HCL 5 MG PO SCH (15:00)
[2020-05-27] MEDS ORDERED: Carafate 1 GM PO SCH (16:30)
[2020-05-27] MEDS ORDERED: ZOCOR 20MG PO SCH (22:00)
[2020-05-27] MEDS ORDERED: NON-FORMULARY ITEM (Losartan Potassium [Cozaar] 25 MG) PO SCH (22:00)
[2020-05-27] MEDS ORDERED: NON-FORMULARY ITEM (Atorvastatin Calcium [Atorvastatin Calcium] 20 MG) PO SCH (22:00)
[2020-05-27] MEDS ORDERED: Cozaar 50 MG PO SCH (22:00)
[2020-05-28] MEDS ORDERED: NON-FORMULARY ITEM (Omeprazole [Omeprazole] 40 MG) PO SCH (10:00)
[2020-05-28] MEDS ORDERED: NON-FORMULARY ITEM (Metoprolol Tartrate [Metoprolol Tartrate] 100 MG) PO SCH (10:00)
[2020-05-28] MEDS ORDERED: NON-FORMULARY ITEM (Glimepiride [Glimepiride] 1 MG) PO SCH (10:00)
[2020-05-28] MEDS ORDERED: PANTOPRAZOLE SODIUM 40 MG PO SCH (10:00)
== END 2020-05-27 15:05 | disposition home or self-care (01) ==
LOC: ED 19:41 → MED SURG 23:59
PROVIDERS: ADMIT General Practice; ATTEND General Practice
DX: R77.8 Other specified abnormalities of plasma proteins (principal); R53.1 Weakness; R42 Dizziness and giddiness; I11.0 Hypertensive heart disease with heart failure; I50.9 Heart failure, unspecified; Z79.899 Other long term (current) drug therapy; J44.9 Chronic obstructive pulmonary disease, unspecified; E11.9 Type 2 diabetes mellitus without complications; E78.00 Pure hypercholesterolemia, unspecified; Z86.73 Personal history of transient ischemic attack (TIA), and cerebral infarction without residual deficits; Z85.46 Personal history of malignant neoplasm of prostate
CPT/HCPCS: 36415; 71250; 80053; 81001; 83605; 83880; 84484; 85025; 85610; 85730; 87086; 93268; 99284; G0378; U0003; A9270-GY

== ENCOUNTER 2020-06-04 17:56 | Emergency (ER) | payer MEDICARE ==
[2020-06-04] MEDS ORDERED: Zofran 4 MG/2 ML VIAL IV ONE (18:01)
[2020-06-04] MEDS ORDERED: BABY ASPIRIN 81 MG CHEW ONE (18:12)
[2020-06-04] MEDS ORDERED: Zofran 4 MG/2 ML VIAL ONE (18:12)
[2020-06-04] MEDS ORDERED: BABY ASPIRIN 81 MG CHEW PO ONE (18:14)
--- NOTE | 2020-06-04 18:19 | ERPHSYRPT ---
- History of Present Illness Time Seen by Provider: 06/04/20 17:59 Source: patient Exam Limitations: no limitations Patient Subjective Stated Complaint: PT HERE FOR PAIN ACROSS UPPER ABD TODAY, DAUGHTER IS WORRIED IT IS HES HEART, HE HAD AN NM 2 WEEKS AGO. DAUGHTER STATES HE WAS ARAUZ IN COLOR, Triage Nursing Assessment: PT ALERT STATES PAIN STARTED AT 1PM, WAS ABLE TO EAT TODAY, PAIN TO UPPER ABD, ABD SOFT , DENIES ANY NAUSEA, RESP EASY Physician History: Patient is here for abdominal pain, chest pain. Started approximately 1 PM. Patient did have an elevated troponin and CHF exacerbation last week. He did not undergo cardiac catheterization or stent placement from what I could tell reviewing the medical records. Location: mid-epigastric Quality: sharp Radiation: into chest Severity: moderate Duration: 1 pm today Timing: gradual Modifying factors/associated signs and symptoms: none tried Allergies/Adverse Reactions: aspirin Adverse Reaction (Verified 06/04/20 17:58) Home Medications: Allopurinol 100 mg [Zyloprim 100 mg] 100 mg PO DAILY 08/11/19 [History] Glimepiride 1 mg PO DAILY 08/11/19 [History] Sucralfate 1 gm [Carafate 1 GM] 1 gm PO BID 08/11/19 [History] Tamsulosin HCl 0.4 mg [Flomax 0.4 MG] 0.4 mg PO DAILY 08/11/19 [History] Metoclopramide HCl 5 mg PO TID 08/19/19 [History] clonazePAM [Clonazepam] 0.5 mg PO BID 08/19/19 [History] Gabapentin 100 cap PO BID 02/28/20 [History] Magnesium Oxide 400 mg [Mag-Ox 400] 400 mg PO DAILY 04/08/20 [History] Pantoprazole Sodium [Protonix] 40 mg PO DAILY 04/08/20 [History] Atorvastatin Calcium 20 mg PO HS 05/27/20 [History] Losartan Potassium [Cozaar] 25 mg PO HS 05/27/20 [History] Omeprazole 40 mg PO DAILY 05/27/20 [History] Hx Tetanus, Diphtheria Vaccination/Date Given: Yes Hx Influenza Vaccination/Date Given: No Hx Pneumococcal Vaccination/Date Given: No Travel Risk - International Travel Have you traveled outside of the country in past 3 weeks: No - Coronavirus Screening Symptoms: Fever Close contact with a COVID-19 positive Pt in past 14-21 Days: No - Review of Systems Constitutional: No Fever, No Chills Eyes: No Symptoms Ears, Nose, & Throat: No Symptoms Respiratory: No Cough, No Dyspnea Cardiac: Chest Pain, No Edema, No Syncope Abdominal/Gastrointestinal: Abdominal Pain, Nausea, No Vomiting, No Diarrhea Genitourinary Symptoms: No Dysuria Musculoskeletal: No Back Pain, No Neck Pain Skin: No Rash Neurological: No Dizziness, No Focal Weakness, No Sensory Changes Psychological: No Symptoms Endocrine: No Symptoms All Other Systems: Reviewed and Negative - Past Medical History Pertinent Past Medical History: Yes Neurological History: TIA ENT History: No Pertinent History Cardiac History: Arrhythmia, High Cholesterol, Hypertension, Myocardial Infarction (NM) Respiratory History: Bronchitis Endocrine Medical History: Diabetes Type II Musculoskeletal History: Arthritis GI Medical History: GERD History: No Pertinent History Psycho-Social History: Anxiety Male Reproductive Disorders: Prostate Cancer Other Medical History: gout, 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 - Past Surgical History Past Surgical History: Yes Neuro Surgical History: No Pertinent History Cardiac: No Pertinent History Respiratory: No Pertinent History Gastrointestinal: Hemorrhoidectomy Genitourinary: No Pertinent History Musculoskeletal: Orthopedic Surgery Male Surgical History: No Pertinent History Other Surgical History: LT ARM - Social History Smoking Status: Former smoker Exposure to second hand smoke: Yes Drug Use: none Patient Lives Alone: No Significant Family History: no pertinent family hx - Nursing Vital Signs Nursing Vital Signs: Initial Vital Signs Temperature 99.3 F 06/04/20 17:59 Pulse Rate 56 L 06/04/20 17:59 Respiratory Rate 18 06/04/20 17:59 Blood Pressure 161/72 06/04/20 17:59 O2 Sat by Pulse Oximetry 98 06/04/20 17:59 Pain Scale Pain Intensity 5 - Physical Exam General Appearance: no apparent distress, alert Eye Exam: PERRL/EOMI, eyes nml inspection Ears, Nose, Throat Exam: normal ENT inspection, TMs normal, pharynx normal, moist mucous membranes Neck Exam: normal inspection, non-tender, supple, full range of motion Respiratory Exam: normal breath sounds, lungs clear, No respiratory distress Cardiovascular Exam: regular rate/rhythm, normal heart sounds, normal peripheral pulses Gastrointestinal/Abdomen Exam: soft, normal bowel sounds, other (Epigastric tenderness to palpation. No rebound no guarding.), No tenderness, No mass Back Exam: normal inspection, normal range of motion, No CVA tenderness, No vertebral tenderness Extremity Exam: normal inspection, normal range of motion, pelvis stable Neurologic Exam: alert, oriented x 3, cooperative, normal mood/affect, nml cerebellar function, nml station & gait, sensation nml, No motor deficits Skin Exam: normal color, warm, dry, No rash Lymphatic Exam: No adenopathy SpO2: 98 Ordered Tests: Active Orders 24 hr Category Date Time Status Core Driller Helper STAT Care 06/04/20 18:02 Active EKG-ER Only STAT Care 06/04/20 18:01 Active IV Insertion STAT Care 06/04/20 18:01 Active ABDOMEN AND PELVIS W CONTRAST [CT] Stat Exams 06/04/20 18:59 Ordered CHEST 1 VIEW (PORTABLE) Stat Exams 06/04/20 18:02 Taken CHEST WITH CONTRAST [CT] Stat Exams 06/04/20 18:59 Ordered CBC W DIFF Stat Lab 06/04/20 18:46 Completed CMP Stat Lab 06/04/20 18:46 Received Manual Differential NC Stat Lab 06/04/20 18:46 Completed NT PRO BNP Stat Lab 06/04/20 18:46 Received PROTIME WITH INR Stat Lab 06/04/20 18:46 Received PTT Stat Lab 06/04/20 18:46 Received TROPONIN Q3H Lab 06/04/20 18:46 Received TROPONIN Q3H Lab 06/04/20 21:15 Ordered TROPONIN Q3H Lab 06/05/20 00:15 Ordered TROPONIN Q3H Lab 06/05/20 02:15 Ordered TROPONIN Q3H Lab 06/05/20 05:15 Ordered Medication Summary Discontinued Medications Generic Name Dose Route Start Last Admin Trade Name Freq PRN Reason Stop Dose Admin Aspirin Confirm 06/04/20 18:12 Baby Aspirin 81 Mg Chew Administered 06/04/20 18:13 Dose 324 mg .ROUTE .STK-MED ONE Aspirin 324 mg 06/04/20 18:14 06/04/20 18:19 Baby Aspirin 81 Mg Chew PO 06/04/20 18:15 324 mg STAT ONE Administration Ondansetron HCl 4 mg 06/04/20 18:01 06/04/20 18:14 Zofran 4 Mg/2 Ml Vial IV 06/04/20 18:02 4 mg STAT ONE Administration Ondansetron HCl Confirm 06/04/20 18:12 Zofran 4 Mg/2 Ml Vial Administered 06/04/20 18:13 Dose 4 mg .ROUTE .STK-MED ONE Lab/Rad Data: Laboratory Result Diagrams 06/04/20 18:46 Laboratory Results 06/04/20 Range/Units 18:46 WBC 7.7 (4.0-10.5) K/mm3 RBC 3.79 L (4.1-5.6) M/mm3 Hgb 10.2 L (12.5-18.0) gm/dl Hct 32.6 L (42-50) % MCV 86.0 (78-100) fl MCH 26.9 (26-32) pg MCHC 31.3 L (32-36) g/dl RDW 16.3 H (11.5-14.0) % Plt Count 123 L (150-450) K/mm3 MPV 11.2 H (7.5-11.0) fl - Progress Progress: improved Progress Note: 06/04/20 18:18 - We'll obtain basic labs, fluids, EKG, troponin, chest x-ray - EKG shows no ST changes - my read. See full read below. - O2 saturations consistently greater than 95%. - CXR shows no pneumonia, pneumothorax - my read 06/04/20 19:00 Patient still having some symptoms. Therefore we will order a CT scan of the ch est, abdomen, pelvis looking for any abnormalities. Patient is going to be handed off to Dr. Miranda. I did discuss the work-up with him. He will follow up on labs and imaging as described. Patient most likely will need to be admitted given recent heart issues and pain today. - Departure Clinical Impression: Chest pain, Abdominal pain Condition: Stable Critical Care Time: No Referrals: CHANDANA DUNNE MD [Primary Care Provider] -
[2020-06-04 18:52] LABS: Hematocrit 32.6 % (42-50); Hemoglobin 10.2 gm/dl (12.5-18.0); Mean Corpuscular Hemoglobin 26.9 pg (26-32); Mean Corpuscular Hgb Concent. 31.3 g/dl (32-36); Mean Platelet Volume 11.2 fl (7.5-11.0); Platelet Count 123 K/mm3 (150-450); Red Blood Count 3.79 M/mm3 (4.1-5.6); Red Cell Distribution Width 16.3 % (11.5-14.0); White Blood Count 7.7 K/mm3 (4.0-10.5)
[2020-06-04 18:57] LABS: INR 1.22 (0.8-3.0); PROTIME 13.8 SECONDS (8.83-12.87)
[2020-06-04 19:00] LABS: PTT 30.3 SECONDS (24.1-36.1)
[2020-06-04 19:11] LABS: ANION GAP 11.5 MEQ/L (5-15); BILIRUBIN,TOTAL 0.5 mg/dL (0.2-1.3); Calcium 8.7 mg/dL (8.4-10.2); Creatinine 1 1.23 mg/dL (0.66-1.25); Potassium 3.5 mmol/L (3.5-5.1); Total Protein 6.9 g/dL (6.3-8.2)
--- NOTE | 2020-06-04 20:15 | XRAY ---
Indication: Chest pain. COPD. Comparison: April 07, 2020. Portable chest remains clear again with incidental tiny calcified granulomas. Heart is not enlarged for AP portable technique. Bony thorax intact with mild osteopenia and degenerative changes. Impression: Stable nonacute chest with chronic features.
[2020-06-04 20:59] LABS: BAND 1 % (0.0-2.0); Basophil 1 % (0.0-1.0); Lymphocytes 21 % (24-44); Monocyte 18 % (0.0-12.0); Neutrophils 59 % (36.-66.); Total Cells Counted 100
[2020-06-04 21:00] LABS: Platelet Estimate NORMAL (NORMAL)
[2020-06-04 21:27] VITALS: BP 143/75; PULSE 52; O2SAT 97
--- NOTE | 2020-06-04 22:03 | XRAY ---
Indication: Chest pain. Elevated d-dimer. Multiple contiguous axial images obtained through the chest using 80 cc of Isovue-370 contrast and PE protocol. Comparison: CT chest without contrast May 26, 2020. There is good opacification of the pulmonary arteries to include the lobar and segmental branches. No pulmonary embolus. Heart is not enlarged. Aorta remains mildly calcified without aneurysm. Stable small subcarinal and bilateral hilar calcified nodes. No pathologic mediastinal/hilar lymphadenopathy. Stable small hiatal hernia. Lungs again demonstrates bilateral dependent atelectasis, bibasilar fibrosis/scarring, and a few scattered tiny calcified granulomas. No infiltrate or consolidation. Bony thorax intact again without osteopenia and flowing osteophytes throughout the spine. CT abdomen reported separately. Impression: 1. Negative pulmonary embolus. 2. Again incidental scattered atelectasis/fibrosis/scarring, small hiatal hernia, chronic bony findings, and old granulomatous disease. Comment: Preliminary interpretation was made by [facility]. No critical discrepancy.
--- NOTE | 2020-06-04 22:09 | XRAY ---
Indication: Epigastric pain. Multiple contiguous axial images obtained through the abdomen and pelvis using 80 cc of Isovue 370 contrast only. Comparison: August 11, 2019. CT chest reported separately. Noncontrasted stomach and bowel loops appear nonobstructed. Normal appendix. Minimal descending colonic diverticulosis. Urinary bladder now demonstrates moderate circumferential wall thickening with minimal stranding favoring cystitis. No free fluid/air. Stable enlarged prostate gland and left renal cortical scarring. Remaining liver, gallbladder, pancreas, spleen, adrenal glands, kidneys, and ureters are unremarkable. Stable mild aortoiliac calcifications. No AAA or pathologic retroperitoneal lymphadenopathy. Osseous structures intact again with osteopenia and degenerative changes throughout the thoracolumbar spine. 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 Impression: 1. New urinary bladder wall thickening with stranding. Rule out cystitis. 2. Again incidental colonic diverticulosis, enlarged prostate gland, chronic bony findings, and intermuscular lipomas of the right sartorius/left rectus femoris muscles. Comment: Preliminary interpretation was made by [facility]. No critical discrepancy.
== END 2020-06-04 21:40 | disposition home or self-care (01) ==
LOC: ED 17:56
DX: R07.9 Chest pain, unspecified (principal); R10.9 Unspecified abdominal pain; Z79.899 Other long term (current) drug therapy; I10 Essential (primary) hypertension; I25.2 Old myocardial infarction; E11.9 Type 2 diabetes mellitus without complications; F41.9 Anxiety disorder, unspecified; Z85.46 Personal history of malignant neoplasm of prostate; E78.00 Pure hypercholesterolemia, unspecified
CPT/HCPCS: 36000; 36415; 71045; 71260; 74177; 80053; 83880; 84484; 85025; 85610; 85730; 93005; 93041; 96374; 99284; J2405; A9270-GY

== ENCOUNTER 2020-06-13 21:35 | Emergency (ER) | payer MEDICARE ==
[2020-06-13] MEDS ORDERED: Zofran 4 MG/2 ML VIAL IV ONE (22:00)
[2020-06-13] MEDS ORDERED: Sodium Chloride 0.9% 1000 ML 1,000 ML IV STA (22:00)
[2020-06-13 22:09] LABS: Hemoglobin 10.4 gm/dl (12.5-18.0); Mean Cell Volume 84.2 fl (78-100); Mean Corpuscular Hemoglobin 26.5 pg (26-32); Mean Corpuscular Hgb Concent. 31.5 g/dl (32-36); Mean Platelet Volume 11.5 fl (7.5-11.0); Platelet Count 119 K/mm3 (150-450); Red Blood Count 3.92 M/mm3 (4.1-5.6); Red Cell Distribution Width 16.2 % (11.5-14.0); White Blood Count 5.1 K/mm3 (4.0-10.5)
--- NOTE | 2020-06-13 22:11 | ERPHSYRPT ---
- History of Present Illness Historian: patient, family, other ([facility]) Exam Limitations: no limitations Patient Subjective Stated Complaint: pt was c/o chest pain and abd pain at home. has had nausea and vomiting since pain started. Triage Nursing Assessment: pt alert and oriented, very eek and daughter answers some questions for him. pt back per wheelchair, transfers to [facility] with assist of 2, unsteady gait noted. respirations nonlabored with lungs cta. abd soft, tender to rt lower abd. bowel sounds hypo x4 quads. Physician History: Patient is an 89-year-old male with history of UT in the past presents with abdominal pain. Pain occurred about 2 to 3 hours prior to arrival. Patient also having some nausea and vomiting as well. No chest pain or shortness of breath. However concerned due to similar symptoms that he had with his previous UT. During that event, EKG was normal but his troponin was elevated. Patient had some oatmeal about 2 hours before onset of pain. Patient does suffer from acid reflux. Patient denies any constipation or diarrhea. Patient also denies any upper respiratory symptoms or fever. Timing/Duration: hour(s) (3) Activities at Onset: none Quality: aching Abdominal Pain Onset Location: epigastric Pain Radiation: no radiation Severity of Pain-Max: moderate Severity of Pain-Current: moderate Modifying Factors: Improves With: nothing Associated Symptoms: nausea, vomiting Previous symptoms: same symptoms as today (Previous UT) Allergies/Adverse Reactions: aspirin Adverse Reaction (Verified 06/13/20 21:55) Home Medications: Allopurinol 100 mg [Zyloprim 100 mg] 100 mg PO DAILY 08/11/19 [History] Glimepiride 1 mg PO DAILY 08/11/19 [History] Sucralfate 1 gm [Carafate 1 GM] 1 gm PO BID 08/11/19 [History] Tamsulosin HCl 0.4 mg [Flomax 0.4 MG] 0.4 mg PO DAILY 08/11/19 [History] Metoclopramide HCl 5 mg PO TID 08/19/19 [History] clonazePAM [Clonazepam] 0.5 mg PO BID 08/19/19 [History] Gabapentin 100 cap PO BID 02/28/20 [History] Magnesium Oxide 400 mg [Mag-Ox 400] 400 mg PO DAILY 04/08/20 [History] Pantoprazole Sodium [Protonix] 40 mg PO DAILY 04/08/20 [History] Atorvastatin Calcium 20 mg PO HS 05/27/20 [History] Losartan Potassium [Cozaar] 25 mg PO HS 05/27/20 [History] Omeprazole 40 mg PO DAILY 05/27/20 [History] Hx Tetanus, Diphtheria Vaccination/Date Given: Yes Hx Influenza Vaccination/Date Given: No Hx Pneumococcal Vaccination/Date Given: No Immunizations Up to Date: Yes Travel Risk - International Travel Have you traveled outside of the country in past 3 weeks: No - Coronavirus Screening Are you exhibiting any of the following symptoms?: No Close contact with a COVID-19 positive Pt in past 14-21 Days: No - Review of Systems Constitutional: No Fever, No Chills Eyes: No Symptoms Ears, Nose, & Throat: No Symptoms Respiratory: No Cough, No Dyspnea Cardiac: No Chest Pain, No Edema, No Syncope Abdominal/Gastrointestinal: Abdominal Pain, Nausea, Vomiting, No Diarrhea, No Constipation, No Hematemesis, No Hematochezia Genitourinary Symptoms: No Dysuria Musculoskeletal: No Back Pain, No Neck Pain Skin: No Rash Neurological: No Dizziness, No Focal Weakness, No Sensory Changes Psychological: No Symptoms Endocrine: No Symptoms All Other Systems: Reviewed and Negative - Past Medical History Pertinent Past Medical History: Yes Neurological History: TIA ENT History: No Pertinent History Cardiac History: Arrhythmia, High Cholesterol, Hypertension, Myocardial Infarction (UT) Respiratory History: Bronchitis Endocrine Medical History: Diabetes Type II Musculoskeletal History: Arthritis GI Medical History: GERD History: No Pertinent History Psycho-Social History: Anxiety Male Reproductive Disorders: Prostate Cancer Other Medical History: gout, 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 - Past Surgical History Past Surgical History: Yes Neuro Surgical History: No Pertinent History Cardiac: No Pertinent History Respiratory: No Pertinent History Gastrointestinal: Hemorrhoidectomy Genitourinary: No Pertinent History Musculoskeletal: Orthopedic Surgery Male Surgical History: No Pertinent History Other Surgical History: LT ARM - Social History Smoking Status: Former smoker Exposure to second hand smoke: Yes Drug Use: none Patient Lives Alone: No Significant Family History: no pertinent family hx - Nursing Vital Signs Nursing Vital Signs: Initial Vital Signs Temperature 97.4 F 06/13/20 21:36 Pulse Rate 62 11/09/20 21:36 Respiratory Rate 16 06/13/20 21:36 Blood Pressure 166/91 06/13/20 21:36 O2 Sat by Pulse Oximetry 99 06/13/20 21:36 Pain Scale Pain Intensity 3 - Physical Exam General Appearance: no apparent distress, alert Eye Exam: PERRL/EOMI, eyes nml inspection Ears, Nose, Throat Exam: normal ENT inspection, pharynx normal, moist mucous membranes Neck Exam: normal inspection, non-tender, supple, full range of motion Respiratory Exam: normal breath sounds, lungs clear, No respiratory distress Cardiovascular Exam: regular rate/rhythm, normal heart sounds Gastrointestinal/Abdomen Exam: soft, normal bowel sounds, tenderness (Diffuse), No distention, No mass, No guarding, No rebound, No organomegaly Rectal Exam: deferred Back Exam: normal inspection, normal range of motion, No CVA tenderness, No vertebral tenderness Extremity Exam: normal inspection, normal range of motion, pelvis stable Neurologic Exam: alert, oriented x 3, cooperative, normal mood/affect, nml cerebellar function, sensation nml, No motor deficits Skin Exam: normal color, warm, dry SpO2: 99 - Course Nursing assessment & vital signs reviewed: Yes EKG Interpreted by Me: Sinus Rhythm, NORMAL AXIS, prolonged QT interval, NORMAL QRS - CT Exams Abdomen/Pelvis CT Interpretation: Tele-radiologist Report, Other (Constipation) Ordered Tests: Active Orders 24 hr Category Date Time Status EKG-ER Only STAT Care 06/13/20 21:48 Active IV Insertion STAT Care 06/13/20 22:00 Active ABDOMEN AND PELVIS W CONTRAST [CT] Stat Exams 06/13/20 22:01 Taken CHEST 2 VIEWS (PA AND LAT) Stat Exams 06/13/20 22:00 Taken AMYLASE Stat Lab 06/13/20 22:00 Completed BMP Stat Lab 06/13/20 22:00 Completed CBC W DIFF Stat Lab 06/13/20 22:00 Completed CULTURE,URINE Stat Lab 06/13/20 22:53 Received Hepatic Function Panel Stat Lab 06/13/20 22:00 Completed LIPASE Stat Lab 06/13/20 22:00 Completed Manual Differential NC Stat Lab 06/13/20 22:00 Completed PROTIME WITH INR Stat Lab 06/13/20 22:00 Completed TROPONIN Q3H Lab 06/13/20 22:00 Completed TROPONIN Q3H Lab 06/14/20 00:50 Completed UA W/RFX UR CULTURE Stat Lab 06/13/20 22:53 Completed Medication Summary Discontinued Medications Generic Name Dose Route Start Last Admin Trade Name Jeri PRN Reason Stop Dose Admin Cephalexin HCl 500 mg 06/13/20 23:50 06/13/20 23:53 Keflex 500 Mg PO 06/13/20 23:51 500 mg STAT ONE Administration Cephalexin HCl Confirm 06/13/20 23:53 Keflex 500 Mg Administered 06/13/20 23:54 Dose 500 mg .ROUTE .STK-MED ONE Sodium Chloride 1,000 mls @ 999 mls/hr 06/13/20 22:00 06/13/20 23:45 Sodium Chloride 0.9% 1000 Ml IV 06/13/20 23:00 Infused .Q1H1M STA Infusion Sodium Chloride Confirm 06/13/20 22:31 Sodium Chloride 0.9% 1000 Ml Administered 06/13/20 22:32 Dose 1,000 mls @ ud .ROUTE .STK-MED ONE Ondansetron HCl 4 mg 06/13/20 22:00 06/13/20 22:37 Zofran 4 Mg/2 Ml Vial IV 06/13/20 22:01 4 mg STAT ONE Administration Ondansetron HCl Confirm 06/13/20 22:31 Zofran 4 Mg/2 Ml Vial Administered 06/13/20 22:32 Dose 4 mg .ROUTE .STK-MED ONE Lab/Rad Data: Laboratory Result Diagrams 06/13/20 22:00 06/13/20 22:00 Laboratory Results 06/14/20 06/13/20 06/13/20 Range/Units 00:50 22:53 22:00 WBC (4.0-10.5) K/mm3 RBC (4.1-5.6) M/mm3 Hgb (12.5-18.0) gm/dl Hct (42-50) % MCV (78-100) fl MCH (26-32) pg MCHC (32-36) g/dl RDW (11.5-14.0) % Plt Count (150-450) K/mm3 MPV (7.5-11.0) fl Segmented Neutrophils (36.-66.) % Lymphocytes (Manual) (24-44) % Monocytes (Manual) (0.0-12.0) % Eosinophils (Manual) (0.00-3.0) % Platelet Estimate (NORMAL) RBC Morphology PT 13.9 H (8.83-12.87) SECONDS INR 1.23 (0.8-3.0) Sodium (137-145) mmol/L Potassium (3.5-5.1) mmol/L Chloride (98-107) mmol/L Carbon Dioxide (22-30) mmol/L Anion Gap (5-15) MEQ/L BUN (9-20) mg/dL Creatinine (0.66-1.25) mg/dL Estimated GFR ML/MIN Glucose (74-106) mg/dL Calcium (8.4-10.2) mg/dL Total Bilirubin (0.2-1.3) mg/dL Direct Bilirubin (0.0-0.4) mg/dL AST (17-59) U/L ALT (0-50) U/L Alkaline Phosphatase (38-126) U/L Troponin I < 0.012 (0.000-0.034) ng/mL Serum Total Protein (6.3-8.2) g/dL Albumin (3.5-5.0) g/dL Amylase (30-110) U/L Lipase (23-300) U/L Urine Color STRAW (YELLOW) Urine Appearance CLEAR (CLEAR) Urine pH 6.0 (5-6) Ur Specific [place] 1.002 (1.005-1.025) Urine Protein NEGATIVE (Negative) Urine Ketones NEGATIVE (NEGATIVE) Urine Blood SMALL (0-5) Srinivasan/ul Urine Nitrite NEGATIVE (NEGATIVE) Urine Bilirubin NEGATIVE (NEGATIVE) Urine Urobilinogen NEGATIVE (0-1) mg/dL Ur Leukocyte Esterase MODERATE (NEGATIVE) Urine WBC (Auto) 11-15 (0-5) /HPF Urine RBC (Auto) 0-2 (0-2) /HPF U Hyaline Cast (Auto) 0-2 (0-2) /LPF U Epithel Cells (Auto) NONE (FEW) /HPF Urine Bacteria (Auto) NONE (NEGATIVE) /HPF Urine Mucus (Auto) SLIGHT (NEGATIVE) /HPF Urine Culture Reflexed YES (NO) Urine Glucose NEGATIVE (NEGATIVE) mg/dL 06/13/20 06/13/20 06/13/20 Range/Units 22:00 22:00 22:00 WBC 5.1 (4.0-10.5) K/mm3 RBC 3.92 L (4.1-5.6) M/mm3 Hgb 10.4 L (12.5-18.0) gm/dl Hct 33.0 L (42-50) % MCV 84.2 (78-100) fl MCH 26.5 (26-32) pg MCHC 31.5 L (32-36) g/dl RDW 16.2 H (11.5-14.0) % Plt Count 119 L (150-450) K/mm3 MPV 11.5 H (7.5-11.0) fl Segmented Neutrophils 61 (36.-66.) % Lymphocytes (Manual) 26 (24-44) % Monocytes (Manual) 12 (0.0-12.0) % Eosinophils (Manual) 1 (0.00-3.0) % Platelet Estimate NORMAL (NORMAL) RBC Morphology NORMAL PT (8.83-12.87) SECONDS INR (0.8-3.0) Sodium 138 (137-145) mmol/L Potassium 3.5 (3.5-5.1) mmol/L Chloride 109 H (98-107) mmol/L Carbon Dioxide 23 (22-30) mmol/L Anion Gap 10.3 (5-15) MEQ/L BUN 10 (9-20) mg/dL Creatinine 0.96 (0.66-1.25) mg/dL Estimated GFR > 60.0 ML/MIN Glucose 88 (74-106) mg/dL Calcium 8.7 (8.4-10.2) mg/dL Total Bilirubin 0.50 (0.2-1.3) mg/dL Direct Bilirubin 0 (0.0-0.4) mg/dL AST 16 L (17-59) U/L ALT 12 (0-50) U/L Alkaline Phosphatase 118 (38-126) U/L Troponin I < 0.012 (0.000-0.034) ng/mL Serum Total Protein 6.6 (6.3-8.2) g/dL Albumin 3.6 (3.5-5.0) g/dL Amylase 61 (30-110) U/L Lipase 49 (23-300) U/L Urine Color (YELLOW) Urine Appearance (CLEAR) Urine pH (5-6) Ur Specific [place] (1.005-1.025) Urine Protein (Negative) Urine Ketones (NEGATIVE) Urine Blood (0-5) Srinivasan/ul Urine Nitrite (NEGATIVE) Urine Bilirubin (NEGATIVE) Urine Urobilinogen (0-1) mg/dL Ur Leukocyte Esterase (NEGATIVE) Urine WBC (Auto) (0-5) /HPF Urine RBC (Auto) (0-2) /HPF U Hyaline Cast (Auto) (0-2) /LPF U Epithel Cells (Auto) (FEW) /HPF Urine Bacteria (Auto) (NEGATIVE) /HPF Urine Mucus (Auto) (NEGATIVE) /HPF Urine Culture Reflexed (NO) Urine Glucose (NEGATIVE) mg/dL - Progress Progress: improved Progress Note: 06/14/20 01:33 Patient is nontoxic-appearing. Given patient's previous symptoms of abdominal pain nausea and vomiting with his UT, will do a cardiac work-up. IV fluids, Zofran IV. Cardiac work-up was negative. Troponin enzymes negative x2. CT of abdomen and pelvis was fairly benign only showing constipation. Alysis did reveal UTI which we will treat. Results discussed with daughter who was pleased that his enzymes are negative. Counseled pt/family regarding: lab results, diagnosis, need for follow-up, rad results - Departure Departure Disposition: Home Clinical Impression: UTI (urinary tract infection), Constipation Condition: Stable Critical Care Time: No Referrals: CHANDANA DUNNE MD [Primary Care Provider] - Instructions: Constipation in Adults, Acute Cystitis (DC) Additional Instructions: Monitor symptoms closely. Hydration. Stool softeners. Abdominal pain could be secondary to overuse of laxatives. Consider tapering down. High-fiber diet. Take antibiotic as prescribed. Follow with PCP in 2 to 3 days for recheck. Return to ER if worse. Prescriptions: Cephalexin Mh 500 mg [Keflex 500 mg] 500 mg PO TID #21 capsule
[2020-06-13 22:16] LABS: INR 1.23 (0.8-3.0); PROTIME 13.9 SECONDS (8.83-12.87)
[2020-06-13 22:21] LABS: ALBUMIN 3.6 g/dL (3.5-5.0); ALKALINE PHOSPHATASE 118 U/L (38-126); AMYLASE 61 U/L (30-110); ANION GAP 10.3 MEQ/L (5-15); BLOOD UREA NITROGEN 10 mg/dL (9-20); CHLORIDE 109 mmol/L (98-107); Calcium 8.7 mg/dL (8.4-10.2); Carbon Dioxide 23 mmol/L (22-30); Creatinine 1 0.96 mg/dL (0.66-1.25); EST GLOMERULAR FILTRATION RATE > 60.0 ML/MIN; Glucose 88 mg/dL (74-106); LIPASE 49 U/L (23-300); Potassium 3.5 mmol/L (3.5-5.1); SGOT/AST 16 U/L (17-59); SGPT/ALT 12 U/L (0-50); SODIUM 138 mmol/L (137-145); Total Protein 6.6 g/dL (6.3-8.2)
[2020-06-13 22:22] LABS: Direct Bilirubin 0 mg/dL (0.0-0.4)
[2020-06-13] MEDS ORDERED: Sodium Chloride 0.9% 1000 ML 1,000 ML ONE (22:31)
[2020-06-13] MEDS ORDERED: Zofran 4 MG/2 ML VIAL ONE (22:31)
[2020-06-13 23:05] LABS: Appearance CLEAR (CLEAR); Bilirubin NEGATIVE (NEGATIVE); Blood SMALL Ery/ul (0-5); Glucose NEGATIVE (NEGATIVE); Hyaline Casts 0-2 /LPF (0-2); Ketones NEGATIVE (NEGATIVE); Leukocyte Esterase MODERATE (NEGATIVE); Mucus SLIGHT /HPF (NEGATIVE); Nitrite NEGATIVE (NEGATIVE); Protein,Urine Dip NEGATIVE (Negative); RBC 0-2 /HPF (0-2); Specific Gravity 1.002 (1.005-1.025); Urobilinogen NEGATIVE mg/dL (0-1)
[2020-06-13 23:30] LABS: Eosinophil 1 % (0.00-3.0); Lymphocytes 26 % (24-44); Monocyte 12 % (0.0-12.0); Neutrophils 61 % (36.-66.); Platelet Estimate NORMAL (NORMAL); Total Cells Counted 100
[2020-06-13] MEDS ORDERED: KEFLEX 500 MG PO ONE (23:50)
[2020-06-13] MEDS ORDERED: KEFLEX 500 MG ONE (23:53)
[2020-06-14 01:26] VITALS: O2SAT 99
[2020-06-14 01:35] VITALS: BP 178/98; PULSE 67
--- NOTE | 2020-06-14 08:59 | XRAY ---
Indication: Abdomen pain and constipation. Multiple contiguous axial images obtained through the abdomen and pelvis using 80 cc Isovue 370 contrast. Comparison: June 04, 2020. Lung bases and upper abdomen degraded by respiration artifact. Grossly stable bibasilar atelectasis/scarring without focal infiltrate, or effusion. Heart is not enlarged. Stable moderate-sized hiatal hernia. Noncontrasted stomach and bowel loops remain nonobstructed with stable colonic diverticulosis. Mild fecal debris predominantly in the ascending and transverse colon. Urinary bladder now moderately distended again with mild circumferential wall thickening, possible cystitis in the right clinical setting. Stable enlarged prostate gland and left renal cortical scarring. Remaining liver, gallbladder, pancreas, spleen, adrenal glands, kidneys, and ureters remain unremarkable. Stable scattered aortoiliac calcifications without AAA. No pathologic retroperitoneal lymphadenopathy. Osseous structures remain intact again with osteopenia and moderate degenerative changes throughout the thoracolumbar spine. 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 Impression: 1. Distended urinary bladder with again mild circumferential wall thickening. Rule out cystitis. 2. 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 Comment: Preliminary interpretation was made by [facility]. No critical discrepancy.
--- NOTE | 2020-06-14 09:01 | XRAY ---
Indication: Abdomen pain. Comparison: June 04, 2020. PA/lateral chest remains hyperinflated and clear again with a few incidental tiny calcified granulomas. Heart is not enlarged. Bony thorax intact again with mild osteopenia and degenerative changes. Impression: Continued nonacute hyperinflated chest with chronic features.
== END 2020-06-14 01:43 | disposition home or self-care (01) ==
LOC: ED 21:35
DX: N39.0 Urinary tract infection, site not specified (principal); K59.00 Constipation, unspecified; R10.13 Epigastric pain; R11.2 Nausea with vomiting, unspecified; I25.2 Old myocardial infarction; Z79.899 Other long term (current) drug therapy; E11.9 Type 2 diabetes mellitus without complications; I10 Essential (primary) hypertension; E78.00 Pure hypercholesterolemia, unspecified
CPT/HCPCS: 36000; 36415; 71046; 74177; 80048; 80076; 81001; 82150; 83690; 84484; 85025; 85610; 87086; 93005; 96360; 96374; 99284; J2405; A9270-GY

== ENCOUNTER 2020-06-29 22:52 | Observation (INO) | payer MEDICARE ==
[2020-06-29] MEDS ORDERED: Sodium Chloride 0.9% 1000 ML 1,000 ML IV SCH (23:15)
--- NOTE | 2020-06-29 23:32 | ERPHSYRPT ---
- History of Present Illness Time Seen by Provider: 06/29/20 23:10 Source: patient Exam Limitations: no limitations Patient Subjective Stated Complaint: . Triage Nursing Assessment: . Physician History: Patient is an 89-year-old male presents to our ED with his daughter for evaluation of labile blood pressure dizziness and chest discomfort. Daughter also states that patient's gait has been a little more unsteady than normal. Symptoms have been going on essentially all day today. Daughter became concerned when patient requested that she bring patient to the emergency room. Patient is hard of hearing. History of present illness is somewhat difficult to obtain. Patient states he has not been feeling well. He describes his chest pain as a discomfort. He denies marcello pain. No associated nausea or vomiting. No diarrhea. No trauma or fever. Symptoms are mild to moderate in intensity. No specific worsening or improving factors. Patient voices no other complaints or concerns this time. Timing/Duration: today Severity: mild, moderate Modifying Factors: Improves With: nothing Allergies/Adverse Reactions: aspirin Adverse Reaction (Verified 06/29/20 23:09) Home Medications: Allopurinol 100 mg [Zyloprim 100 mg] 100 mg PO DAILY 08/11/19 [History] Glimepiride 1 mg PO DAILY 08/11/19 [History] Sucralfate 1 gm [Carafate 1 GM] 1 gm PO BID 08/11/19 [History] Tamsulosin HCl 0.4 mg [Flomax 0.4 MG] 0.4 mg PO DAILY 08/11/19 [History] Metoclopramide HCl 5 mg PO TID 08/19/19 [History] clonazePAM [Clonazepam] 0.5 mg PO BID 08/19/19 [History] Gabapentin 100 cap PO BID 02/28/20 [History] Magnesium Oxide 400 mg [Mag-Ox 400] 400 mg PO DAILY 04/08/20 [History] Pantoprazole Sodium [Protonix] 40 mg PO DAILY 04/08/20 [History] Atorvastatin Calcium 20 mg PO HS 05/27/20 [History] Losartan Potassium [Cozaar] 25 mg PO HS 05/27/20 [History] Omeprazole 40 mg PO DAILY 05/27/20 [History] Hx Tetanus, Diphtheria Vaccination/Date Given: Yes Hx Influenza Vaccination/Date Given: No Hx Pneumococcal Vaccination/Date Given: No Immunizations Up to Date: Yes Travel Risk - International Travel Have you traveled outside of the country in past 3 weeks: No - Coronavirus Screening Are you exhibiting any of the following symptoms?: No Close contact with a COVID-19 positive Pt in past 14-21 Days: No - Review of Systems Constitutional: No Symptoms, No Fever, No Chills Eyes: No Symptoms Ears, Nose, & Throat: No Symptoms Respiratory: No Symptoms, No Cough, No Dyspnea Cardiac: No Symptoms, No Chest Pain, No Edema, No Syncope Abdominal/Gastrointestinal: No Symptoms, No Abdominal Pain, No Nausea, No Vomiting, No Diarrhea Genitourinary Symptoms: No Symptoms, No Dysuria Musculoskeletal: No Symptoms, No Back Pain, No Neck Pain Skin: No Symptoms, No Rash Neurological: No Symptoms, No Dizziness, No Focal Weakness, No Sensory Changes Psychological: No Symptoms Endocrine: No Symptoms Hematologic/Lymphatic: No Symptoms Immunological/Allergic: No Symptoms All Other Systems: Reviewed and Negative - Past Medical History Pertinent Past Medical History: Yes Neurological History: TIA ENT History: No Pertinent History Cardiac History: Arrhythmia, High Cholesterol, Hypertension, Myocardial Infarction ([place]) Respiratory History: Bronchitis Endocrine Medical History: Diabetes Type II Musculoskeletal History: Arthritis GI Medical History: GERD History: No Pertinent History Psycho-Social History: Anxiety Male Reproductive Disorders: Prostate Cancer Other Medical History: Gout, 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 HX Prostate CA - Past Surgical History Past Surgical History: Yes Neuro Surgical History: No Pertinent History Cardiac: No Pertinent History Respiratory: No Pertinent History Gastrointestinal: Hemorrhoidectomy Genitourinary: No Pertinent History Musculoskeletal: Orthopedic Surgery Male Surgical History: No Pertinent History Other Surgical History: LT ARM - Social History Smoking Status: Former smoker Exposure to second hand smoke: Yes Drug Use: none Patient Lives Alone: No Significant Family History: no pertinent family hx - Nursing Vital Signs Nursing Vital Signs: Initial Vital Signs Temperature 98.5 F 06/29/20 23:02 Pulse Rate 62 06/29/20 23:02 Respiratory Rate 21 06/29/20 23:02 Blood Pressure 183/80 06/29/20 23:02 O2 Sat by Pulse Oximetry 98 06/29/20 23:02 Pain Scale Pain Intensity 0 - Physical Exam General Appearance: no apparent distress, alert Eye Exam: PERRL/EOMI, eyes nml inspection Ears, Nose, Throat Exam: normal ENT inspection, TMs normal, pharynx normal, moist mucous membranes, other (Patient is hard of hearing) Neck Exam: normal inspection, non-tender, supple, full range of motion Respiratory Exam: normal breath sounds, lungs clear, airway intact, No respiratory distress Cardiovascular Exam: regular rate/rhythm, normal heart sounds, normal peripheral pulses Gastrointestinal/Abdomen Exam: soft, normal bowel sounds, tenderness (Periumbilical tenderness to palpation. Overlying soft tissue intact. No signs of trauma.), No mass Back Exam: normal inspection, normal range of motion, No CVA tenderness, No vertebral tenderness Extremity Exam: normal inspection, normal range of motion, pelvis stable Neurologic Exam: alert, oriented x 3, cooperative, normal mood/affect, nml cerebellar function, sensation nml, No motor deficits Skin Exam: normal color, warm, dry, No rash Lymphatic Exam: No adenopathy SpO2 Interpretation: normal SpO2: 98 O2 Delivery: Room Air - Course Nursing assessment & vital signs reviewed: Yes EKG Interpreted by Me: RATE (65), Sinus Rhythm, NORMAL AXIS, prolonged QT interval - Radiology Exams Chest X-ray Interpretation: Interpreted by me (Due to consolidation. No pleural effusion mild osteopenia. Bony thorax intact. Normal cardiac silhouette. No acute process observed.) - CT Exams Abdomen/Pelvis CT Interpretation: Tele-radiologist Report (Finding of a lung nodule which will require follow-up, atherosclerosis, hiatal hernia, constipation enlarged prostate and small umbilical hernia.) Ordered Tests: Active Orders 24 hr Category Date Time Status Tank Wagon Driver STAT Care 06/29/20 23:13 Active EKG-ER Only STAT Care 06/29/20 23:11 Active IV Insertion STAT Care 06/29/20 23:11 Active Pulse Oximetry (ED) STAT Care 06/29/20 23:11 Active ABDOMEN AND PELVIS W/0 CONTRAS [CT] Stat Exams 06/30/20 00:14 Taken CHEST 1 VIEW (PORTABLE) Stat Exams 06/29/20 23:13 Taken CBC W DIFF Stat Lab 06/29/20 22:31 Completed CMP Stat Lab 06/29/20 22:31 Completed MAGNESIUM Stat Lab 06/29/20 22:31 Completed TROPONIN Q3H Lab 06/29/20 22:31 Completed TROPONIN Q3H Lab 06/30/20 02:15 Ordered TROPONIN Q3H Lab 06/30/20 05:15 Ordered TROPONIN Q3H Lab 06/30/20 08:15 Ordered TROPONIN Q3H Lab 06/30/20 11:15 Ordered UA W/RFX UR CULTURE Stat Lab 06/30/20 00:15 Completed Transfer Order Routine Transfer 06/30/20 Ordered Medication Summary Generic Name Dose Route Start Last Admin Trade Name Jeri PRN Reason Stop Dose Admin Sodium Chloride 1,000 mls @ 50 mls/hr 06/29/20 23:15 06/29/20 23:30 Sodium Chloride 0.9% 1000 Ml IV 07/29/20 23:14 50 mls/hr .Q20H DRAKE Administration Lab/Rad Data: Laboratory Result Diagrams 06/29/20 22:31 06/29/20 22:31 Laboratory Results 06/30/20 06/29/20 06/29/20 Range/Units 00:15 22:31 22:31 WBC (4.0-10.5) K/mm3 RBC (4.1-5.6) M/mm3 Hgb (12.5-18.0) gm/dl Hct (42-50) % MCV (78-100) fl MCH (26-32) pg MCHC (32-36) g/dl RDW (11.5-14.0) % Plt Count (150-450) K/mm3 MPV (7.5-11.0) fl Gran % (36.0-66.0) % Eos # (Auto) (0-0.5) Absolute Lymphs (auto) (1.0-4.6) Absolute Monos (auto) (0.0-1.3) Lymphocytes % (24.0-44.0) % Monocytes % (0.0-12.0) % Eosinophils % (0.00-5.0) % Basophils % (0.0-0.4) % Absolute Granulocytes (1.4-6.9) Basophils # (0-0.4) Sodium 140 (137-145) mmol/L Potassium 3.7 (3.5-5.1) mmol/L Chloride 108 H (98-107) mmol/L Carbon Dioxide 24 (22-30) mmol/L Anion Gap 11.0 (5-15) MEQ/L BUN 14 (9-20) mg/dL Creatinine 1.08 (0.66-1.25) mg/dL Estimated GFR > 60.0 ML/MIN Glucose 106 (74-106) mg/dL Calcium 8.7 (8.4-10.2) mg/dL Magnesium 1.8 (1.6-2.3) mg/dL Total Bilirubin 0.40 (0.2-1.3) mg/dL AST 18 (17-59) U/L ALT 14 (0-50) U/L Alkaline Phosphatase 123 (38-126) U/L Troponin I < 0.012 (0.000-0.034) ng/mL Serum Total Protein 6.3 (6.3-8.2) g/dL Albumin 3.5 (3.5-5.0) g/dL Urine Color YELLOW (YELLOW) Urine Appearance CLEAR (CLEAR) Urine pH 7.0 (5-6) Ur Specific [place] 1.011 (1.005-1.025) Urine Protein NEGATIVE (Negative) Urine Ketones NEGATIVE (NEGATIVE) Urine Blood NEGATIVE (0-5) Srinivasan/ul Urine Nitrite NEGATIVE (NEGATIVE) Urine Bilirubin NEGATIVE (NEGATIVE) Urine Urobilinogen NEGATIVE (0-1) mg/dL Ur Leukocyte Esterase NEGATIVE (NEGATIVE) Urine WBC (Auto) NONE (0-5) /HPF Urine RBC (Auto) NONE (0-2) /HPF U Epithel Cells (Auto) NONE (FEW) /HPF Urine Bacteria (Auto) NONE (NEGATIVE) /HPF Urine Culture Reflexed NO (NO) Urine Glucose NEGATIVE (NEGATIVE) mg/dL 06/29/ Range/Units 22:31 WBC 4.8 (4.0-10.5) K/mm3 RBC 3.77 L (4.1-5.6) M/mm3 Hgb 9.8 L (12.5-18.0) gm/dl Hct 31.6 L (42-50) % MCV 83.8 (78-100) fl MCH 26.0 (26-32) pg MCHC 31.0 L (32-36) g/dl RDW 16.5 H (11.5-14.0) % Plt Count 118 L (150-450) K/mm3 MPV 10.8 (7.5-11.0) fl Gran % 43.2 (36.0-66.0) % Eos # (Auto) 0.16 (0-0.5) Absolute Lymphs (auto) 1.35 (1.0-4.6) Absolute Monos (auto) 1.13 (0.0-1.3) Lymphocytes % 28.1 (24.0-44.0) % Monocytes % 23.5 H (0.0-12.0) % Eosinophils % 3.3 (0.00-5.0) % Basophils % 1.9 (0.0-0.4) % Absolute Granulocytes 2.07 (1.4-6.9) Basophils # 0.09 (0-0.4) Sodium (137-145) mmol/L Potassium (3.5-5.1) mmol/L Chloride (98-107) mmol/L Carbon Dioxide (22-30) mmol/L Anion Gap (5-15) MEQ/L BUN (9-20) mg/dL Creatinine (0.66-1.25) mg/dL Estimated GFR ML/MIN Glucose (74-106) mg/dL Calcium (8.4-10.2) mg/dL Magnesium (1.6-2.3) mg/dL Total Bilirubin (0.2-1.3) mg/dL AST (17-59) U/L ALT (0-50) U/L Alkaline Phosphatase (38-126) U/L Troponin I (0.000-0.034) ng/mL Serum Total Protein (6.3-8.2) g/dL Albumin (3.5-5.0) g/dL Urine Color (YELLOW) Urine Appearance (CLEAR) Urine pH (5-6) Ur Specific [place] (1.005-1.025) Urine Protein (Negative) Urine Ketones (NEGATIVE) Urine Blood (0-5) Srinivasan/ul Urine Nitrite (NEGATIVE) Urine Bilirubin (NEGATIVE) Urine Urobilinogen (0-1) mg/dL Ur Leukocyte Esterase (NEGATIVE) Urine WBC (Auto) (0-5) /HPF Urine RBC (Auto) (0-2) /HPF U Epithel Cells (Auto) (FEW) /HPF Urine Bacteria (Auto) (NEGATIVE) /HPF Urine Culture Reflexed (NO) Urine Glucose (NEGATIVE) mg/dL - Progress Progress: improved Progress Note: 06/30/20 01:19 Patient reassessed. He feels well. Work-up essentially unremarkable at this time. CT abdomen pelvis incidentally shows lung nodule which will require a 3 to 6- month follow-up. Was advised of this finding. In light of patient's labile blood pressure, intermittent dizziness and chest pain we will admit patient for a cardiac rule out. Case discussed with greg Chinchilla Dr[address] who accepts admission to observation. Plan of care discussed with patient. He agrees to admission to the [facility] for further evaluation and treatment. Daughter at bedside. They voiced no other complaints concerns at this time. 06/30/20 01:[address] Nighat Will see patient in: hospital (observation) Counseled pt/family regarding: lab results, diagnosis, need for follow-up, rad results - Departure Departure Disposition: Observation Clinical Impression: Labile blood pressure, Dizziness, ACS (acute coronary syndrome), Chest pain, Normocytic anemia, Unsteady gait, Thrombocytopenia, Lung nodule, Atherosclerosis, Hiatal hernia, Constipation, Prostate hypertrophy, Umbilical hernia Condition: Stable Critical Care Time: No Referrals: CHANDANA DUNNE MD [Primary Care Provider] -
[2020-06-29 23:41] LABS: Absolute Neutrophil Ct (ANC) 2.07 (1.4-6.9); BASOPHIL % 1.9 % (0.0-0.4); Basophil (Absolute #) 0.09 (0-0.4); Eosinophil % 3.3 % (0.00-5.0); Eosinophil (Absolute #) 0.16 (0-0.5); Hematocrit 31.6 % (42-50); Hemoglobin 9.8 gm/dl (12.5-18.0); Lymphocyte (Absolute #) 1.35 (1.0-4.6); Lymphocytes % 28.1 % (24.0-44.0); Mean Cell Volume 83.8 fl (78-100); Mean Platelet Volume 10.8 fl (7.5-11.0); Monocyte (Absolute #) 1.13 (0.0-1.3); Monocytes % 23.5 % (0.0-12.0); Neutrophil % 43.2 % (36.0-66.0); Platelet Count 118 K/mm3 (150-450); Red Blood Count 3.77 M/mm3 (4.1-5.6); Red Cell Distribution Width 16.5 % (11.5-14.0); White Blood Count 4.8 K/mm3 (4.0-10.5)
[2020-06-30 00:15] LABS: ALBUMIN 3.5 g/dL (3.5-5.0); ALKALINE PHOSPHATASE 123 U/L (38-126); BLOOD UREA NITROGEN 14 mg/dL (9-20); CHLORIDE 108 mmol/L (98-107); Calcium 8.7 mg/dL (8.4-10.2); Carbon Dioxide 24 mmol/L (22-30); Creatinine 1 1.08 mg/dL (0.66-1.25); EST GLOMERULAR FILTRATION RATE > 60.0 ML/MIN; Glucose 106 mg/dL (74-106); MAGNESIUM 1.8 mg/dL (1.6-2.3); Potassium 3.7 mmol/L (3.5-5.1); SGOT/AST 18 U/L (17-59); SGPT/ALT 14 U/L (0-50); SODIUM 140 mmol/L (137-145); Total Protein 6.3 g/dL (6.3-8.2)
[2020-06-30 00:51] LABS: Appearance CLEAR (CLEAR); Bilirubin NEGATIVE (NEGATIVE); Blood NEGATIVE Ery/ul (0-5); Glucose NEGATIVE (NEGATIVE); Ketones NEGATIVE (NEGATIVE); Leukocyte Esterase NEGATIVE (NEGATIVE); Nitrite NEGATIVE (NEGATIVE); Protein,Urine Dip NEGATIVE (Negative); Specific Gravity 1.011 (1.005-1.025); Urobilinogen NEGATIVE mg/dL (0-1)
[2020-06-30] MEDS ORDERED: NITRO-BID 2% UD PACKETS TOP ONE (02:06)
[2020-06-30] MEDS ORDERED: PLAVIX 75 MG Tablet PO ONE (02:08)
[2020-06-30] MEDS ORDERED: NITRO-BID 2% UD PACKETS ONE (02:11)
[2020-06-30] MEDS ORDERED: PLAVIX 75 MG Tablet ONE (02:11)
[2020-06-30] MEDS ORDERED: Senokot-S Tablet PO PRN (02:36)
[2020-06-30] MEDS ORDERED: MAALOX ES 30 ML UNIT DOSE PO PRN (02:36)
[2020-06-30] MEDS ORDERED: TYLENOL 325 MG PO PRN (02:36)
[2020-06-30] MEDS ORDERED: Zofran 4 MG/2 ML VIAL IV PRN (02:36)
[2020-06-30] MEDS ORDERED: MILK OF MAGNESIA 30 ML PO PRN (02:36)
[2020-06-30 06:53] LABS: Risk Ratio 3.3
--- NOTE | 2020-06-30 08:38 | XRAY ---
Indication: Upper abdomen/umbilical pain. Multiple contiguous axial images obtained through the abdomen and pelvis without contrast as ordered. Comparison: June 13, 2020. Lung bases again demonstrates bibasilar subsegmental atelectasis/scarring without infiltrate or effusion. Heart is not enlarged. Stable moderate-sized hiatal hernia with partial intrathoracic stomach. Noncontrasted stomach and bowel loops remain nonobstructed again with mild colonic diverticulosis. Stable urinary bladder circumferential wall thickening, left renal scarring, and enlarged prostate gland. No free fluid/air. Remaining liver, gallbladder, pancreas, spleen, adrenal glands, kidneys, ureters, and bladder appear unremarkable for noncontrast exam. Stable mild aortoiliac calcifications without AAA. Osseous structures intact again with osteopenia and multilevel degenerative spondylosis. 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 Impression: 1. Stable urinary bladder wall thickening again either incomplete distention versus cystitis. 2. 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 3. No new or acute intra-abdominal/pelvic abnormalities on this noncontrast exam. Comment: Preliminary interpretation was made by [facility]. No critical discrepancy.
--- NOTE | 2020-06-30 08:44 | XRAY ---
Indication: Chest pain. Comparison: June 13, 2020. Portable chest again demonstrates normal heart and lungs with incidental tiny calcified granulomas. Bony thorax intact again with mild osteopenia and degenerative changes. No new/acute findings.
--- NOTE | 2020-06-30 11:53 | PCM.HP ---
History of Present Illness - Chief Complaint Chief Complaint: ACS History of Present Illness: is a 89 year old male seen and examined this am following ER admission for chest pain. Patient was brought to our ED with his daughter for evaluation of labile blood pressure dizziness and chest discomfort. Daughter also states that patient's gait has been a little more unsteady than normal. Symptoms have been going on essentially all day today. Daughter became concerned when patient requested that she bring patient to the emergency room. Patient is by himself this am and is a limited historian. Patient reports that he did not know why he was brought to the hospital but did say his daughter brought him and that there were concerns about his blood pressures being elevated. He denies any chest pain this am. He denies any other issues this am and would like to go home. Patient does report being hard of hearing. I did discuss patient with daughter who reported low bp in the afternoon yesterday and then the chest pain started and then the patient's bp was extremely elevated. - Review of Systems Constitutional: No Fever Eyes: No Symptoms Ears, Nose, & Throat: Other (Hard of hearing. ), No Nose Congestion, No Sinus Drainage Respiratory: No Cough, No Orthopnea, No Short Of Breath, No Wheezing Cardiac: No Chest Pain, No Edema, No Syncope Abdominal/Gastrointestinal: No Abdominal Pain, No Nausea, No Vomiting, No Diarrhea, No Constipation Genitourinary Symptoms: No Dysuria, No Frequency, No Hematuria Neurological: No Headache Psychological: Memory Loss (Patient was a limited historian), No Alcohol Abuse, No Drug Abuse, No Depression Medications & Allergies Home Medications: Home Medication List Allopurinol 100 mg [Zyloprim 100 mg] 100 mg PO DAILY 08/11/19 [History Confirmed 06/29/20] Glimepiride 1 mg PO DAILY 08/11/19 [History Confirmed 06/29/20] Sucralfate 1 gm [Carafate 1 GM] 1 gm PO ACHS 08/11/19 [History Confirmed 06/30/20] Tamsulosin HCl 0.4 mg [Flomax 0.4 MG] 0.4 mg PO DAILY 08/11/19 [History Confirmed 06/29/20] Metoclopramide HCl 5 mg PO [id number] 08/19/19 [History Confirmed 06/30/20] clonazePAM [Clonazepam] 0.5 mg PO BID 08/19/19 [History Confirmed 06/29/20] Gabapentin 100 cap PO TID 02/28/20 [History Confirmed 06/30/20] Magnesium Oxide 400 mg [Mag-Ox 400] 400 mg PO DAILY 04/08/20 [History Confirmed 06/29/20] Pantoprazole Sodium [Protonix] 40 mg PO DAILY 04/08/20 [History Confirmed 06/29/20] Losartan Potassium [Cozaar] 25 mg PO HS 05/27/20 [History Confirmed 06/29/20] Metoprolol Tartrate 100 mg PO DAILY 06/30/20 [History Confirmed 06/30/20] Allergies/Adverse Reactions: Allergies Allergy/AdvReac Type Severity Reaction Status Date / Time aspirin AdvReac Verified 06/29/20 23:09 - Past Medical History Past Medical History: Yes Neurological History: TIA ENT History: No Pertinent History Cardiac History: Arrhythmia, High Cholesterol, Hypertension, Myocardial Infarction (NV) Respiratory History: Bronchitis Endocrine Medical History: Diabetes Type II Musculoskelatal History: Arthritis GI Medical History: GERD History: No Pertinent History Pyscho-Social History: Anxiety Male Reproductive Disorders: Prostate Cancer Comment: Gout, 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 HX Prostate CA - Past Surgical History Past Surgical History: Yes Neuro Surgical History: No Pertinent History Cardiac History: No Pertinent History Respiratory Surgery: No Pertinent History GI Surgical History: Hemorrhoidectomy Genitourinary Surgical Hx: No Pertinent History Musculskeletal Surgical Hx: Orthopedic Surgery Male Surgical History: No Pertinent History Other Surgical History: LT ARM - Social History Smoking Status: Former smoker How long have you smoked: 10 yrs Exposure to second hand smoke: Yes Alcohol: None Drug Use: none Significant Family History: no pertinent family hx - Physical Exam Vital Signs: Vital Signs - 24 hr Temp Pulse Resp BP Pulse Ox 06/30/20 11:37 98 F 78 19 179/98 95 06/30/20 08:03 91 L 06/30/20 07:47 97.6 F 58 L 20 165/69 92 L 06/30/20 04:52 97.7 F 60 18 198/85 92 L 06/30/20 03:30 95 06/30/20 02:39 98.5 F 67 22 193/109 99 06/30/20 02:00 67 22 193/109 99 06/30/20 01:52 98 06/30/20 01:00 65 20 182/91 99 06/30/20 00:00 60 16 152/96 99 06/29/20 23:56 98 06/29/20 23:02 98.5 F 62 21 183/80 98 General Appearance: no apparent distress, other (overweight) Neurologic Exam: alert, cooperative, confusion (mild), other (mild agitation), No oriented x 3, No depressed mood/affect Eye Exam: No scleral icterus Ears, Nose, Throat Exam: moist mucous membranes Neck Exam: normal inspection Respiratory Exam: normal breath sounds, lungs clear, No chest tenderness, No respiratory distress, No diminished breath sounds, No accessory muscle use, No prolonged expirations, No crackles/rales, No rhonchi, No wheezing Cardiovascular Exam: No murmur, No friction rub, No gallop Gastrointestinal/Abdomen Exam: soft, normal bowel sounds, No tenderness, No distention, No mass, No guarding Rectal Exam: not done Extremity Exam: No pedal edema, No swelling Skin Exam: normal color, warm, dry, No rash Results - Labs Lab/Micro Results: Lab Results-Last 24 Hours 06/29/20 06/29/20 06/29/20 Range/Units 22:31 22:31 22:31 WBC 4.8 (4.0-10.5) K/mm3 RBC 3.77 L (4.1-5.6) M/mm3 Hgb 9.8 L (12.5-18.0) gm/dl Hct 31.6 L (42-50) % MCV 83.8 (78-100) fl MCH 26.0 (26-32) pg MCHC 31.0 L (32-36) g/dl RDW 16.5 H (11.5-14.0) % Plt Count 118 L (150-450) K/mm3 MPV 10.8 (7.5-11.0) fl Gran % 43.2 (36.0-66.0) % Eos # (Auto) 0.16 (0-0.5) Absolute Lymphs (auto) 1.35 (1.0-4.6) Absolute Monos (auto) 1.13 (0.0-1.3) Lymphocytes % 28.1 (24.0-44.0) % Monocytes % 23.5 H (0.0-12.0) % Eosinophils % 3.3 (0.00-5.0) % Basophils % 1.9 (0.0-0.4) % Absolute Granulocytes 2.07 (1.4-6.9) Basophils # 0.09 (0-0.4) Sodium 140 (137-145) mmol/L Potassium 3.7 (3.5-5.1) mmol/L Chloride 108 H (98-107) mmol/L Carbon Dioxide 24 (22-30) mmol/L Anion Gap 11.0 (5-15) MEQ/L BUN 14 (9-20) mg/dL Creatinine 1.08 (0.66-1.25) mg/dL Estimated GFR > 60.0 ML/MIN Glucose 106 (74-106) mg/dL POC Glucometer (74 to 106) mg/dL Hemoglobin A1c (4.5-6.0) % Calcium 8.7 (8.4-10.2) mg/dL Magnesium 1.8 (1.6-2.3) mg/dL Total Bilirubin 0.40 (0.2-1.3) mg/dL AST 18 (17-59) U/L ALT 14 (0-50) U/L Alkaline Phosphatase 123 (38-126) U/L Troponin I < 0.012 (0.000-0.034) ng/mL Serum Total Protein 6.3 (6.3-8.2) g/dL Albumin 3.5 (3.5-5.0) g/dL Triglycerides (30-150) mg/dL Cholesterol (50-200) mg/dL LDL Cholesterol (30-100) mg/dL HDL Cholesterol (40-60) mg/dL Heart Disease Risk Ratio Urine Color (YELLOW) Urine Appearance (CLEAR) Urine pH (5-6) Ur Specific [place] (1.005-1.025) Urine Protein (Negative) Urine Ketones (NEGATIVE) Urine Blood (0-5) Srinivasan/ul Urine Nitrite (NEGATIVE) Urine Bilirubin (NEGATIVE) Urine Urobilinogen (0-1) mg/dL Ur Leukocyte Esterase (NEGATIVE) Urine WBC (Auto) (0-5) /HPF Urine RBC (Auto) (0-2) /HPF U Epithel Cells (Auto) (FEW) /HPF Urine Bacteria (Auto) (NEGATIVE) /HPF Urine Culture Reflexed (NO) Urine Glucose (NEGATIVE) mg/dL 06/30/20 06/30/20 06/30/20 Range/Units 00:15 02:10 05:50 WBC (4.0-10.5) K/mm3 RBC (4.1-5.6) M/mm3 Hgb (12.5-18.0) gm/dl Hct (42-50) % MCV (78-100) fl MCH (26-32) pg MCHC (32-36) g/dl RDW (11.5-14.0) % Plt Count (150-450) K/mm3 MPV (7.5-11.0) fl Gran % (36.0-66.0) % Eos # (Auto) (0-0.5) Absolute Lymphs (auto) (1.0-4.6) Absolute Monos (auto) (0.0-1.3) Lymphocytes % (24.0-44.0) % Monocytes % (0.0-12.0) % Eosinophils % (0.00-5.0) % Basophils % (0.0-0.4) % Absolute Granulocytes (1.4-6.9) Basophils # (0-0.4) Sodium (137-145) mmol/L Potassium (3.5-5.1) mmol/L Chloride (98-107) mmol/L Carbon Dioxide (22-30) mmol/L Anion Gap (5-15) MEQ/L BUN (9-20) mg/dL Creatinine (0.66-1.25) mg/dL Estimated GFR ML/MIN Glucose (74-106) mg/dL POC Glucometer (74 to 106) mg/dL Hemoglobin A1c (4.5-6.0) % Calcium (8.4-10.2) mg/dL Magnesium (1.6-2.3) mg/dL Total Bilirubin (0.2-1.3) mg/dL AST (17-59) U/L ALT (0-50) U/L Alkaline Phosphatase (38-126) U/L Troponin I < 0.012 < 0.012 (0.000-0.034) ng/mL Serum Total Protein (6.3-8.2) g/dL Albumin (3.5-5.0) g/dL Triglycerides (30-150) mg/dL Cholesterol (50-200) mg/dL LDL Cholesterol (30-100) mg/dL HDL Cholesterol (40-60) mg/dL Heart Disease Risk Ratio Urine Color YELLOW (YELLOW) Urine Appearance CLEAR (CLEAR) Urine pH 7.0 (5-6) Ur Specific [place] 1.011 (1.005-1.025) Urine Protein NEGATIVE (Negative) Urine Ketones NEGATIVE (NEGATIVE) Urine Blood NEGATIVE (0-5) Srinivasan/ul Urine Nitrite NEGATIVE (NEGATIVE) Urine Bilirubin NEGATIVE (NEGATIVE) Urine Urobilinogen NEGATIVE (0-1) mg/dL Ur Leukocyte Esterase NEGATIVE (NEGATIVE) Urine WBC (Auto) NONE (0-5) /HPF Urine RBC (Auto) NONE (0-2) /HPF U Epithel Cells (Auto) NONE (FEW) /HPF Urine Bacteria (Auto) NONE (NEGATIVE) /HPF Urine Culture Reflexed NO (NO) Urine Glucose NEGATIVE (NEGATIVE) mg/dL 06/30/20 06/30/20 06/30/20 Range/Units 05:50 05:50 07:21 WBC (4.0-10.5) K/mm3 RBC (4.1-5.6) M/mm3 Hgb (12.5-18.0) gm/dl Hct (42-50) % MCV (78-100) fl MCH (26-32) pg MCHC (32-36) g/dl RDW (11.5-14.0) % Plt Count (150-450) K/mm3 MPV (7.5-11.0) fl Gran % (36.0-66.0) % Eos # (Auto) (0-0.5) Absolute Lymphs (auto) (1.0-4.6) Absolute Monos (auto) (0.0-1.3) Lymphocytes % (24.0-44.0) % Monocytes % (0.0-12.0) % Eosinophils % (0.00-5.0) % Basophils % (0.0-0.4) % Absolute Granulocytes (1.4-6.9) Basophils # (0-0.4) Sodium (137-145) mmol/L Potassium (3.5-5.1) mmol/L Chloride (98-107) mmol/L Carbon Dioxide (22-30) mmol/L Anion Gap (5-15) MEQ/L BUN (9-20) mg/dL Creatinine (0.66-1.25) mg/dL Estimated GFR ML/MIN Glucose (74-106) mg/dL POC Glucometer 103 (74 to 106) mg/dL Hemoglobin A1c 5.66 (4.5-6.0) % Calcium (8.4-10.2) mg/dL Magnesium (1.6-2.3) mg/dL Total Bilirubin (0.2-1.3) mg/dL AST (17-59) U/L ALT (0-50) U/L Alkaline Phosphatase (38-126) U/L Troponin I (0.000-0.034) ng/mL Serum Total Protein (6.3-8.2) g/dL Albumin (3.5-5.0) g/dL Triglycerides 98 (30-150) mg/dL Cholesterol 77 (50-200) mg/dL LDL Cholesterol 38 (30-100) mg/dL HDL Cholesterol 24 L (40-60) mg/dL Heart Disease Risk Ratio 3.3 Urine Color (YELLOW) Urine Appearance (CLEAR) Urine pH (5-6) Ur Specific [place] (1.005-1.025) Urine Protein (Negative) Urine Ketones (NEGATIVE) Urine Blood (0-5) Srinivasan/ul Urine Nitrite (NEGATIVE) Urine Bilirubin (NEGATIVE) Urine Urobilinogen (0-1) mg/dL Ur Leukocyte Esterase (NEGATIVE) Urine WBC (Auto) (0-5) /HPF Urine RBC (Auto) (0-2) /HPF U Epithel Cells (Auto) (FEW) /HPF Urine Bacteria (Auto) (NEGATIVE) /HPF Urine Culture Reflexed (NO) Urine Glucose (NEGATIVE) mg/dL 06/30/20 06/30/20 Range/Units 08:15 11:20 WBC (4.0-10.5) K/mm3 RBC (4.1-5.6) M/mm3 Hgb (12.5-18.0) gm/dl Hct (42-50) % MCV (78-100) fl MCH (26-32) pg MCHC (32-36) g/dl RDW (11.5-14.0) % Plt Count (150-450) K/mm3 MPV (7.5-11.0) fl Gran % (36.0-66.0) % Eos # (Auto) (0-0.5) Absolute Lymphs (auto) (1.0-4.6) Absolute Monos (auto) (0.0-1.3) Lymphocytes % (24.0-44.0) % Monocytes % (0.0-12.0) % Eosinophils % (0.00-5.0) % Basophils % (0.0-0.4) % Absolute Granulocytes (1.4-6.9) Basophils # (0-0.4) Sodium (137-145) mmol/L Potassium (3.5-5.1) mmol/L Chloride (98-107) mmol/L Carbon Dioxide (22-30) mmol/L Anion Gap (5-15) MEQ/L BUN (9-20) mg/dL Creatinine (0.66-1.25) mg/dL Estimated GFR ML/MIN Glucose (74-106) mg/dL POC Glucometer 150 H (74 to 106) mg/dL Hemoglobin A1c (4.5-6.0) % Calcium (8.4-10.2) mg/dL Magnesium (1.6-2.3) mg/dL Total Bilirubin (0.2-1.3) mg/dL AST (17-59) U/L ALT (0-50) U/L Alkaline Phosphatase (38-126) U/L Troponin I < 0.012 (0.000-0.034) ng/mL Serum Total Protein (6.3-8.2) g/dL Albumin (3.5-5.0) g/dL Triglycerides (30-150) mg/dL Cholesterol (50-200) mg/dL LDL Cholesterol (30-100) mg/dL HDL Cholesterol (40-60) mg/dL Heart Disease Risk Ratio Urine Color (YELLOW) Urine Appearance (CLEAR) Urine pH (5-6) Ur Specific [place] (1.005-1.025) Urine Protein (Negative) Urine Ketones (NEGATIVE) Urine Blood (0-5) Srinivasan/ul Urine Nitrite (NEGATIVE) Urine Bilirubin (NEGATIVE) Urine Urobilinogen (0-1) mg/dL Ur Leukocyte Esterase (NEGATIVE) Urine WBC (Auto) (0-5) /HPF Urine RBC (Auto) (0-2) /HPF U Epithel Cells (Auto) (FEW) /HPF Urine Bacteria (Auto) (NEGATIVE) /HPF Urine Culture Reflexed (NO) Urine Glucose (NEGATIVE) mg/dL Accuchecks Date 06/30/20 Time 07:21 - Radiology Impressions Radiology Exams & Impressions: Radiology Procedures Category Date Time Status ABDOMEN AND PELVIS W/0 CONTRAS [CT] Stat Exams 06/30/20 00:14 Completed CHEST 1 VIEW (PORTABLE) Stat Exams 06/29/20 23:13 Completed - Other Procedures and Tests Respiratory Therapy 07/01/20 05:00 EKG DAILY 07/02/20 05:00 EKG DAILY 07/03/20 05:00 EKG DAILY Assessment/Plan (1) ACS (acute coronary syndrome) Current Visit: Yes Status: Acute Assessment & Plan: Patient had chest pain prior to ER. Patient's symptoms resolved with nitro in ER. NV has been ruled out with neg trops and EKG that did not indicate STEMI.Will continue on tele. Will continue to monitor for worsening symptoms. Code(s): I24.9 - ACUTE ISCHEMIC HEART DISEASE, UNSPECIFIED (2) Chest pain Current Visit: Yes Status: Acute Assessment & Plan: 89 yr old male admitted with chest pain. Patient was given nitro paste in ER. Patient reports that his chest pain has resolved. Trops and EKGs have been neg for NSTEMI or STEMI. Patient reports that he would like to go home. Discussed with patient that although his chest pain had improved his bp has been uncontrolled and he will need to remain in hospital overnight Code(s): R07.9 - CHEST PAIN, UNSPECIFIED (3) Labile blood pressure Current Visit: Yes Status: Acute Assessment & Plan: Patient's daughter reports that his blood pressure was initially 80/40s at home then he started complaining of chest pain and then had extremely elevated blood pressure. Patient has continued to have elevated blood pressures while in the hospital. He had not gotten some of his routine medications for bp. We will resume his home medication for bp. Patient will also start on PRN hydralazine as well. Code(s): R09.89 - OTH SYMPTOMS AND SIGNS INVOLVING THE CIRC AND RESP SYSTEMS (4) Lung nodule Current Visit: Yes Status: Acute Assessment & Plan: This was noted on CT scan. Patient will need to have follow up as outpatient. Code(s): R91.1 - SOLITARY PULMONARY NODULE (5) Unsteady gait Current Visit: Yes Status: Acute Code(s): R26.81 - UNSTEADINESS ON FEET
[2020-06-30 13:10] LABS: Absolute Neutrophil Ct (ANC) 1.86 (1.4-6.9); BASOPHIL % 1.5 % (0.0-0.4); Basophil (Absolute #) 0.07 (0-0.4); Eosinophil % 3.7 % (0.00-5.0); Eosinophil (Absolute #) 0.17 (0-0.5); Hematocrit 31.9 % (42-50); Hemoglobin 9.8 gm/dl (12.5-18.0); Lymphocyte (Absolute #) 1.54 (1.0-4.6); Lymphocytes % 33.3 % (24.0-44.0); Mean Cell Volume 83.9 fl (78-100); Mean Corpuscular Hemoglobin 25.8 pg (26-32); Mean Corpuscular Hgb Concent. 30.7 g/dl (32-36); Mean Platelet Volume 11.6 fl (7.5-11.0); Monocyte (Absolute #) 0.99 (0.0-1.3); Monocytes % 21.4 % (0.0-12.0); Neutrophil % 40.1 % (36.0-66.0); Platelet Count 117 K/mm3 (150-450); Red Cell Distribution Width 16.8 % (11.5-14.0); White Blood Count 4.6 K/mm3 (4.0-10.5)
[2020-06-30] MEDS ORDERED: Lopressor 50 MG PO SCH (13:15)
[2020-06-30 13:22] LABS: ANION GAP 11.4 MEQ/L (5-15); BLOOD UREA NITROGEN 13 mg/dL (9-20); CHLORIDE 109 mmol/L (98-107); Calcium 8.6 mg/dL (8.4-10.2); Carbon Dioxide 24 mmol/L (22-30); Creatinine 1 1.03 mg/dL (0.66-1.25); EST GLOMERULAR FILTRATION RATE > 60.0 ML/MIN; Glucose 104 mg/dL (74-106); NT PRO BNP 1180 pg/mL (0-1800); Potassium 3.4 mmol/L (3.5-5.1); SODIUM 142 mmol/L (137-145)
[2020-06-30] MEDS: Lopressor 50 MG PO SCH (13:23)
[2020-06-30] MEDS: Klonopin 0.5 MG PO SCH ×2 (13:23→21:39)
[2020-06-30] MEDS ORDERED: METOCLOPRAMIDE HCL 5 MG PO SCH (14:15)
[2020-06-30] MEDS: Protonix 40MG Tablet PO SCH (14:39)
[2020-06-30] MEDS: Reglan 10 MG PO SCH ×2 (14:39→21:37)
[2020-06-30] MEDS: Flomax 0.4 MG PO SCH (14:39)
[2020-06-30] MEDS: Neurontin 100 MG PO SCH ×2 (14:39→21:39)
[2020-06-30] MEDS ORDERED: APRESOLINE 20 MG/ML INJ IV PRN (16:15)
[2020-06-30] MEDS: Carafate 1 GM PO SCH ×2 (16:19→21:39)
[2020-06-30] MEDS ORDERED: Klor Con 10 MEQ PO ONE (18:33)
[2020-06-30] MEDS ORDERED: NON-FORMULARY ITEM (Losartan Potassium [Cozaar] 25 MG) PO SCH (22:00)
[2020-06-30] MEDS ORDERED: Cozaar 50 MG PO SCH (22:00)
[2020-07-01 06:09] LABS: Absolute Neutrophil Ct (ANC) 1.67 (1.4-6.9); BASOPHIL % 1.9 % (0.0-0.4); Basophil (Absolute #) 0.08 (0-0.4); Eosinophil % 4.4 % (0.00-5.0); Eosinophil (Absolute #) 0.19 (0-0.5); Hematocrit 34.7 % (42-50); Hemoglobin 10.7 gm/dl (12.5-18.0); Lymphocyte (Absolute #) 1.24 (1.0-4.6); Lymphocytes % 28.7 % (24.0-44.0); Mean Cell Volume 82.8 fl (78-100); Mean Corpuscular Hemoglobin 25.5 pg (26-32); Mean Corpuscular Hgb Concent. 30.8 g/dl (32-36); Monocyte (Absolute #) 1.14 (0.0-1.3); Monocytes % 26.4 % (0.0-12.0); Neutrophil % 38.6 % (36.0-66.0); Platelet Count 121 K/mm3 (150-450); Red Blood Count 4.19 M/mm3 (4.1-5.6); Red Cell Distribution Width 16.6 % (11.5-14.0); White Blood Count 4.3 K/mm3 (4.0-10.5)
[2020-07-01 06:35] LABS: ALBUMIN 3.6 g/dL (3.5-5.0); ALKALINE PHOSPHATASE 130 U/L (38-126); ANION GAP 10.2 MEQ/L (5-15); BLOOD UREA NITROGEN 9 mg/dL (9-20); CHLORIDE 108 mmol/L (98-107); Calcium 8.4 mg/dL (8.4-10.2); Carbon Dioxide 23 mmol/L (22-30); Creatinine 1 0.93 mg/dL (0.66-1.25); EST GLOMERULAR FILTRATION RATE > 60.0 ML/MIN; Glucose 104 mg/dL (74-106); NT PRO BNP 2440 pg/mL (0-1800); Potassium 3.3 mmol/L (3.5-5.1); SGOT/AST 18 U/L (17-59); SGPT/ALT 11 U/L (0-50); SODIUM 139 mmol/L (137-145); Total Protein 6.7 g/dL (6.3-8.2)
[2020-07-01 07:27] VITALS: O2SAT 95
[2020-07-01] MEDS ORDERED: Amaryl 2 MG PO SCH (08:00)
[2020-07-01] MEDS: Carafate 1 GM PO SCH ×3 (08:10→16:34)
[2020-07-01] MEDS ORDERED: Klor Con 10 MEQ PO ONE (08:50)
[2020-07-01] MEDS: Flomax 0.4 MG PO SCH (09:02)
[2020-07-01] MEDS: Klonopin 0.5 MG PO SCH (09:03)
[2020-07-01] MEDS: Reglan 10 MG PO SCH ×2 (09:03→14:58)
[2020-07-01] MEDS: Neurontin 100 MG PO SCH ×2 (09:04→14:58)
[2020-07-01] MEDS: Protonix 40MG Tablet PO SCH (09:04)
[2020-07-01] MEDS: Lopressor 50 MG PO SCH (09:06)
[2020-07-01] MEDS ORDERED: ZYLOPRIM 100 MG PO SCH (10:00)
[2020-07-01] MEDS ORDERED: NON-FORMULARY ITEM (Glimepiride [Glimepiride] 1 MG) PO SCH (10:00)
[2020-07-01] MEDS ORDERED: LASIX 20 MG PO ONE (10:00)
[2020-07-01] MEDS ORDERED: MAG-OX 400 PO SCH (10:00)
[2020-07-01] MEDS ORDERED: PANTOPRAZOLE SODIUM 40 MG PO SCH (10:00)
[2020-07-01 15:07] VITALS: BP 163/72; PULSE 69
[2020-07-01] MEDS ORDERED: Zestril 5 MG PO STA (15:30)
--- NOTE | 2020-07-01 17:19 | PCM.DS ---
Discharge Summary Date of Admission: 06/30/20 02:33 Date of Discharge: 07/01/20 Admitting Physician: SHANTE SALAZAR Primary Care Provider: CHANDANA DUNNE Allergies Allergies aspirin Adverse Reaction (Verified 06/29/20 23:09) Hospital Summary - Vitals & Intake/Output Vital Signs: Vital Signs Temperature 97.9 F 07/01/20 11:51 Pulse Rate 69 07/01/20 15:05 Respiratory Rate 18 07/01/20 15:05 Blood Pressure 163/72 07/01/20 15:05 O2 Sat by Pulse Oximetry 95 07/01/20 15:05 Intake & Output: Intake & Output 06/29/20 06/30/20 07/01/20 07/02/20 11:59 11:59 11:59 11:59 Intake Total 496 2864 240 Output Total 6873 5595 350 Balance -2179 -561 -110 Weight 84.3 kg 84.4 kg - Lab Result Diagrams: 07/01/20 05:20 07/01/20 05:20 Lab Results-Last 24 Hrs: Lab Results-Last 24 Hours 06/30/20 07/01/20 07/01/20 Range/Units 21:22 05:20 05:20 WBC 4.3 (4.0-10.5) K/mm3 RBC 4.19 (4.1-5.6) M/mm3 Hgb 10.7 L (12.5-18.0) gm/dl Hct 34.7 L (42-50) % MCV 82.8 (78-100) fl MCH 25.5 L (26-32) pg MCHC 30.8 L (32-36) g/dl RDW 16.6 H (11.5-14.0) % Plt Count 121 L (150-450) K/mm3 MPV 11.0 (7.5-11.0) fl Gran % 38.6 (36.0-66.0) % Eos # (Auto) 0.19 (0-0.5) Absolute Lymphs (auto) 1.24 (1.0-4.6) Absolute Monos (auto) 1.14 (0.0-1.3) Lymphocytes % 28.7 (24.0-44.0) % Monocytes % 26.4 H (0.0-12.0) % Eosinophils % 4.4 (0.00-5.0) % Basophils % 1.9 (0.0-0.4) % Absolute Granulocytes 1.67 (1.4-6.9) Basophils # 0.08 (0-0.4) Sodium 139 (137-145) mmol/L Potassium 3.3 L (3.5-5.1) mmol/L Chloride 108 H (98-107) mmol/L Carbon Dioxide 23 (22-30) mmol/L Anion Gap 10.2 (5-15) MEQ/L BUN 9 (9-20) mg/dL Creatinine 0.93 (0.66-1.25) mg/dL Estimated GFR > 60.0 ML/MIN Glucose 104 (74-106) mg/dL POC Glucometer 95 (74 to 106) mg/dL Calcium 8.4 (8.4-10.2) mg/dL Total Bilirubin 0.70 (0.2-1.3) mg/dL AST 18 (17-59) U/L ALT 11 (0-50) U/L Alkaline Phosphatase 130 H (38-126) U/L NT-Pro-B Natriuret Pep 2440 H (0-1800) pg/mL Serum Total Protein 6.7 (6.3-8.2) g/dL Albumin 3.6 (3.5-5.0) g/dL 07/01/20 07/01/20 07/01/20 Range/Units 07:16 11:13 16:31 WBC (4.0-10.5) K/mm3 RBC (4.1-5.6) M/mm3 Hgb (12.5-18.0) gm/dl Hct (42-50) % MCV (78-100) fl MCH (26-32) pg MCHC (32-36) g/dl RDW (11.5-14.0) % Plt Count (150-450) K/mm3 MPV (7.5-11.0) fl Gran % (36.0-66.0) % Eos # (Auto) (0-0.5) Absolute Lymphs (auto) (1.0-4.6) Absolute Monos (auto) (0.0-1.3) Lymphocytes % (24.0-44.0) % Monocytes % (0.0-12.0) % Eosinophils % (0.00-5.0) % Basophils % (0.0-0.4) % Absolute Granulocytes (1.4-6.9) Basophils # (0-0.4) Sodium (137-145) mmol/L Potassium (3.5-5.1) mmol/L Chloride (98-107) mmol/L Carbon Dioxide (22-30) mmol/L Anion Gap (5-15) MEQ/L BUN (9-20) mg/dL Creatinine (0.66-1.25) mg/dL Estimated GFR ML/MIN Glucose (74-106) mg/dL POC Glucometer 99 195 H 78 (74 to 106) mg/dL Calcium (8.4-10.2) mg/dL Total Bilirubin (0.2-1.3) mg/dL AST (17-59) U/L ALT (0-50) U/L Alkaline Phosphatase (38-126) U/L NT-Pro-B Natriuret Pep (0-1800) pg/mL Serum Total Protein (6.3-8.2) g/dL Albumin (3.5-5.0) g/dL Micro Results-Entire Visit: Accuchecks Date 07/01/20 Date 07/01/20 Date 06/30/20 Time 11:15 Time 07:16 Time 21:30 - Radiology Exams Ordered Rad Exams-Entire Visit: Radiology Procedures Category Date Time Status ABDOMEN AND PELVIS W/0 CONTRAS [CT] Stat Exams 06/30/20 00:14 Completed CHEST 1 VIEW (PORTABLE) Stat Exams 06/29/20 23:13 Completed - Procedures and Test Procedures and Tests throughout Hospitalization: Therapy Orders & Screens 06/30/20 02:36 EKG [id number],QAMX3,PRN Comment: 06/30/20 07:56 EKG ROUTINE Comment: Diagnosis: ACS 07/01/20 05:00 EKG DAILY Comment: Diagnosis: ACS 07/02/20 05:00 EKG DAILY Comment: Diagnosis: ACS 07/03/20 05:00 EKG DAILY Comment: Diagnosis: ACS Final Diagnosis/Problem List - Final Discharge Diagnosis/Problem (1) ACS (acute coronary syndrome) Current Visit: Yes Status: Acute Code(s): I24.9 - ACUTE ISCHEMIC HEART DISEASE, UNSPECIFIED (2) Chest pain Current Visit: Yes Status: Acute Code(s): R07.9 - CHEST PAIN, UNSPECIFIED (3) Labile blood pressure Current Visit: Yes Status: Acute Code(s): R09.89 - OTH SYMPTOMS AND SIGNS INVOLVING THE CIRC AND RESP SYSTEMS (4) Lung nodule Current Visit: Yes Status: Acute Code(s): R91.1 - SOLITARY PULMONARY NODULE (5) Unsteady gait Current Visit: Yes Status: Acute Code(s): R26.81 - UNSTEADINESS ON FEET - Discharge Disposition: Home, Self-Care Condition: Stable Prescriptions: New Lisinopril 5 mg [Zestril 5 MG] 5 mg PO DAILY 30 Days #30 tablet Continue Tamsulosin HCl 0.4 mg [Flomax 0.4 MG] 0.4 mg PO DAILY Allopurinol 100 mg [Zyloprim 100 mg] 100 mg PO DAILY Sucralfate 1 gm [Carafate 1 GM] 1 gm PO ACHS Glimepiride 1 mg PO DAILY Metoclopramide HCl 5 mg PO [id number] clonazePAM [Clonazepam] 0.5 mg PO BID Gabapentin 100 cap PO TID Pantoprazole Sodium [Protonix] 40 mg PO DAILY Magnesium Oxide 400 mg [Mag-Ox 400] 400 mg PO DAILY Losartan Potassium [Cozaar] 25 mg PO HS Metoprolol Tartrate 100 mg PO DAILY Additional Instructions: Patient will take lisinopril in am and daughter can check bp 3 times a day as she has been doing. Patient needs to follow up with pcp early next week. Follow up with: CHANDANA DUNNE MD [Primary Care Provider] -
== END 2020-07-01 18:35 | disposition home or self-care (01) ==
LOC: ED 22:52 → MED SURG 06-30 02:33
PROVIDERS: ADMIT Family Medicine; ATTEND General Practice
DX: I24.9 Acute ischemic heart disease, unspecified (principal); R07.9 Chest pain, unspecified; R09.89 Other specified symptoms and signs involving the circulatory and respiratory systems; R91.1 Solitary pulmonary nodule; R26.81 Unsteadiness on feet; Z79.899 Other long term (current) drug therapy; R42 Dizziness and giddiness; I10 Essential (primary) hypertension; E78.00 Pure hypercholesterolemia, unspecified; E11.9 Type 2 diabetes mellitus without complications; Z85.46 Personal history of malignant neoplasm of prostate; R41.0 Disorientation, unspecified
CPT/HCPCS: 36000; 36415; 71045; 74176; 80048; 80053; 80061; 81001; 82947; 83036; 83721; 83735; 83880; 84484; 85025; 93005; 93041; 93268; 94760; 94762; 96360; 99284; G0378; J0360; A9270-GY

== ENCOUNTER 2020-10-22 20:23 | Observation (INO) | payer MEDICARE ==
[2020-10-22] MEDS ORDERED: Sodium Chloride 0.9% 1000 ML 1,000 ML IV SCH (20:30)
[2020-10-22 20:43] LABS: Hematocrit 36.1 % (42-50); Hemoglobin 11.1 gm/dl (12.5-18.0); Mean Cell Volume 80.9 fl (78-100); Mean Corpuscular Hemoglobin 24.9 pg (26-32); Mean Corpuscular Hgb Concent. 30.7 g/dl (32-36); Platelet Count 154 K/mm3 (150-450); Red Blood Count 4.46 M/mm3 (4.1-5.6)
[2020-10-22 20:54] LABS: ALBUMIN 3.8 g/dL (3.5-5.0); ALKALINE PHOSPHATASE 134 U/L (38-126); ANION GAP 12.9 MEQ/L (5-15); BLOOD UREA NITROGEN 8 mg/dL (9-20); CHLORIDE 103 mmol/L (98-107); Carbon Dioxide 26 mmol/L (22-30); Creatinine 1 1.21 mg/dL (0.66-1.25); EST GLOMERULAR FILTRATION RATE > 60.0 ML/MIN; Glucose 103 mg/dL (74-106); Potassium 3.7 mmol/L (3.5-5.1); SGOT/AST 19 U/L (17-59); SGPT/ALT 15 U/L (0-50); SODIUM 138 mmol/L (137-145); Total Protein 6.8 g/dL (6.3-8.2)
--- NOTE | 2020-10-22 20:58 | ERPHSYRPT ---
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; BLE strong pushes; clear lung sounds in all lobes; clear heart tones; active bowels sounds in all quads; pt states 5/10 pain to head; pt [id number]; hypertensive Physician History: c/o headache and numbness to BUE; states that pt stated that headache started at 1300; states that pt took tylenol with no relief; daughter states that pt has hx of TIA; pt states that rt arm and hand is numb; pt states that left hand is numb; Time of Onset/Last Time Seen Normal: pt states "I have a headache and my hands are numb." since 1300 hrs Timing/Duration: today Severity: mild Character of Deficits: new weakness, altered sensation, LLE, LUE Deficits: decrease ability to stand Baseline/Normal Cognition: alert oriented x 3 Current Cognition: alert oriented x 3 Baseline Gait: uses cane Associated Symptoms: denies symptoms Allergies/Adverse Reactions: aspirin Adverse Reaction (Verified 10/22/20 20:28) Home Medications: Allopurinol 100 mg [Zyloprim 100 mg] 100 mg PO DAILY 08/11/19 [History] Glimepiride 1 mg PO DAILY 08/11/19 [History] Sucralfate 1 gm [Carafate 1 GM] 1 gm PO ACHS 08/11/19 [History] Tamsulosin HCl 0.4 mg [Flomax 0.4 MG] 0.4 mg PO DAILY 08/11/19 [History] Metoclopramide HCl 5 mg PO [id number] 08/19/19 [History] clonazePAM [Clonazepam] 0.5 mg PO BID 08/19/19 [History] Gabapentin 100 cap PO TID 02/28/20 [History] Magnesium Oxide 400 mg [Mag-Ox 400] 400 mg PO DAILY 04/08/20 [History] Pantoprazole Sodium [Protonix] 40 mg PO DAILY 04/08/20 [History] Losartan Potassium [Cozaar] 25 mg PO HS 05/27/20 [History] Metoprolol Tartrate 100 mg PO DAILY 06/30/20 [History] Hx Tetanus, Diphtheria Vaccination/Date Given: No Hx Influenza Vaccination/Date Given: No Hx Pneumococcal Vaccination/Date Given: No Travel Risk - International Travel Have you traveled outside of the country in past 3 weeks: No - Coronavirus Screening Are you exhibiting any of the following symptoms?: No Close contact with a COVID-19 positive Pt in past 14-21 Days: No - Review of Systems Constitutional: Weakness, No Fever, No Chills Eyes: No Symptoms Ears, Nose, & Throat: No Symptoms Respiratory: No Cough, No Dyspnea Cardiac: No Chest Pain, No Edema, No Syncope Abdominal/Gastrointestinal: No Abdominal Pain, No Nausea, No Vomiting, No Diarrhea Genitourinary Symptoms: No Dysuria Musculoskeletal: No Back Pain, No Neck Pain Skin: No Rash Neurological: Focal Weakness, Gait Changes, No Dizziness, No Sensory Changes Psychological: No Symptoms Endocrine: No Symptoms All Other Systems: Reviewed and Negative - Past Medical History Pertinent Past Medical History: Yes Neurological History: TIA ENT History: No Pertinent History Cardiac History: Arrhythmia, High Cholesterol, Hypertension, Myocardial Infarction (DE) Respiratory History: Bronchitis Endocrine Medical History: Diabetes Type II Musculoskeletal History: Arthritis GI Medical History: GERD History: No Pertinent History Psycho-Social History: Anxiety Male Reproductive Disorders: Prostate Cancer Other Medical History: Gout, 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 HX Prostate CA - Past Surgical History Past Surgical History: Yes Neuro Surgical History: No Pertinent History Cardiac: No Pertinent History Respiratory: No Pertinent History Gastrointestinal: Hemorrhoidectomy Genitourinary: No Pertinent History Musculoskeletal: Orthopedic Surgery Male Surgical History: No Pertinent History Other Surgical History: LT ARM - Social History Smoking Status: Former smoker How long have you smoked: 10 yrs Exposure to second hand smoke: Yes Drug Use: none Patient Lives Alone: No Significant Family History: no pertinent family hx - Nursing Vital Signs Nursing Vital Signs: Initial Vital Signs Temperature 99.3 F 10/22/20 20:29 Pulse Rate 76 10/22/20 20:29 Respiratory Rate 21 10/22/20 20:29 Blood Pressure 167/79 10/22/20 20:29 O2 Sat by Pulse Oximetry 95 10/22/20 20:29 Pain Scale Pain Intensity 5 - Daljit Coma Scale Best Eye Response (Daljit): (4) open spontaneously Best Verbal Response (Daljit): (5) oriented Best Motor Response ([place]): (6) obeys commands Daljit Total: 15 - Physical Exam General Appearance: no apparent distress, alert Eye Exam: bilateral eye: PERRL, EOMI Ears, Nose, Throat Exam: normal ENT inspection, moist mucous membranes Neck Exam: normal inspection, non-tender, supple Respiratory: normal breath sounds, lungs clear, airway intact, No respiratory distress Cardiovascular: regular rate/rhythm, No edema Gastrointestinal: soft, No tenderness, No distention Back Exam: normal inspection Extremity Exam: normal inspection, No pedal edema Peripheral Pulses: carotid (R): 2+, carotid (L): 2+, femoral (R): 2+, femoral (L): 2+, dorsalis-pedis (R): 2+, dorsalis-pedis (L): 2+ 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, 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 speech, PERRL, tongue midline Coordination/Gait: normal finger to nose, abnormal gait Motor/Sensory: weak motor strength LUE DTR: bicep (R): 2+, bicep (L): 2+, tricep (R): 2+, tricep (L): 2+, knee (R): 2+, knee (L): 2+, ankle (R): 2+, ankle (L): 2+ Skin Exam: normal color, warm, dry, No rash SpO2 Interpretation: normal SpO2: 95 O2 Delivery: Room Air - Course Nursing assessment & vital signs reviewed: Yes EKG Interpreted by Me: Sinus Rhythm - CT Exams Head CT Interpretation: Tele-radiologist Report Ordered Tests: Active Orders 24 hr Category Date Time Status Psychiatric Nursing Aide STAT Care 10/22/20 20:30 Active EKG-ER Only STAT Care 10/22/20 20:28 Active IV Insertion STAT Care 10/22/20 20:28 Active Oxygen-ED Only Nasal Cannula 2 lpm Care 10/22/20 20:28 Active HEAD WITHOUT CONTRAST [CT] Stat Exams 10/22/20 20:29 Taken CBC W DIFF Stat Lab 10/22/20 20:40 Completed CMP Stat Lab 10/22/20 20:40 Completed Manual Differential NC Stat Lab 10/22/20 20:40 Completed TROPONIN Stat Lab 10/22/20 20:40 Completed UA W/RFX UR CULTURE Stat Lab 10/22/20 20:29 Ordered Medication Summary Generic Name Dose Route Start Last Admin Trade Name Jeri PRN Reason Stop Dose Admin Sodium Chloride 1,000 mls @ 50 mls/hr 10/22/20 20:30 10/22/20 20:44 Sodium Chloride 0.9% 1000 Ml IV 11/21/20 20:29 50 mls/hr .Q20H DRAKE Administration Lab/Rad Data: Laboratory Result Diagrams 10/22/20 20:40 10/22/20 20:40 Laboratory Results 10/22/20 10/22/20 10/22/20 Range/Units 20:40 20:40 20:40 WBC 10.0 (4.0-10.5) K/mm3 RBC 4.46 (4.1-5.6) M/mm3 Hgb 11.1 L (12.5-18.0) gm/dl Hct 36.1 L (42-50) % MCV 80.9 (78-100) fl MCH 24.9 L (26-32) pg MCHC 30.7 L (32-36) g/dl RDW 19.0 H (11.5-14.0) % Plt Count 154 (150-450) K/mm3 MPV 10.0 (7.5-11.0) fl Sodium 138 (137-145) mmol/L Potassium 3.7 (3.5-5.1) mmol/L Chloride 103 (98-107) mmol/L Carbon Dioxide 26 (22-30) mmol/L Anion Gap 12.9 (5-15) MEQ/L BUN 8 L (9-20) mg/dL Creatinine 1.21 (0.66-1.25) mg/dL Estimated GFR > 60.0 ML/MIN Glucose 103 (74-106) mg/dL Calcium 9.0 (8.4-10.2) mg/dL Total Bilirubin 0.50 (0.2-1.3) mg/dL AST 19 (17-59) U/L ALT 15 (0-50) U/L Alkaline Phosphatase 134 H (38-126) U/L Troponin I < 0.012 (0.000-0.034) ng/mL Serum Total Protein 6.8 (6.3-8.2) g/dL Albumin 3.8 (3.5-5.0) g/dL - Progress Progress: unchanged Discussed with : Katty Will see patient in: hospital (observation) Counseled pt/family regarding: lab results, diagnosis, need for follow-up, rad results - Departure Departure Disposition: Observation Clinical Impression: TIA (transient ischemic attack), Left-sided weakness CHF (congestive heart failure), NYHA class IV Qualifiers: Congestive heart failure type: combined Congestive heart failure chronicity: chronic Qualified Code(s): I50.42 - Chronic combined systolic (congestive) and diastolic (congestive) heart failure Condition: Fair Critical Care Time: Yes Critical Care Time(excluding separately billable procedures): Critical 30-74 mins Referrals: CHANDANA DUNNE MD [Primary Care Provider] - Instructions: Heart Failure
[2020-10-22 21:48] LABS: INFLUENZA A NEGATIVE (NEGATIVE); INFLUENZA B NEGATIVE (NEGATIVE); RESPIRATORY SYNCTIAL VIRUS NEGATIVE (Negative)
[2020-10-22] MEDS ORDERED: TYLENOL 325 MG PO PRN (22:10)
[2020-10-22] MEDS ORDERED: HUMALOG SQ PRN (22:10)
[2020-10-22] MEDS ORDERED: Zofran 4 MG/2 ML VIAL IV PRN (22:10)
[2020-10-22 22:15] LABS: ATYPICAL LYMPHS 1 %; BAND 4 % (0.0-2.0); Eosinophil 2 % (0.00-3.0); Lymphocytes 22 % (24-44); Metamyelocyte 1 %; Monocyte 6 % (0.0-12.0); Neutrophils 64 % (36.-66.); Total Cells Counted 100
[2020-10-22 22:16] LABS: Platelet Estimate NORMAL (NORMAL)
[2020-10-23 00:18] LABS: Appearance CLEAR (CLEAR); Bilirubin NEGATIVE (NEGATIVE); Blood NEGATIVE Ery/ul (0-5); Glucose NEGATIVE (NEGATIVE); Ketones NEGATIVE (NEGATIVE); Leukocyte Esterase NEGATIVE (NEGATIVE); Nitrite NEGATIVE (NEGATIVE); Protein,Urine Dip NEGATIVE (Negative); Specific Gravity 1.003 (1.005-1.025); Urobilinogen NEGATIVE mg/dL (0-1)
[2020-10-23 00:24] LABS: Bacteria NONE SEEN /HPF (NEGATIVE)
[2020-10-23] MEDS: Sodium Chloride 0.9% 1000 ML 1,000 ML IV SCH ×3 (00:39→15:25)
[2020-10-23 06:31] LABS: Hematocrit 33.7 % (42-50); Hemoglobin 10.3 gm/dl (12.5-18.0); Mean Cell Volume 81.4 fl (78-100); Mean Corpuscular Hemoglobin 24.9 pg (26-32); Mean Corpuscular Hgb Concent. 30.6 g/dl (32-36); Mean Platelet Volume 10.6 fl (7.5-11.0); Platelet Count 146 K/mm3 (150-450); Red Blood Count 4.14 M/mm3 (4.1-5.6); Red Cell Distribution Width 19.1 % (11.5-14.0); White Blood Count 7.2 K/mm3 (4.0-10.5)
[2020-10-23 06:34] LABS: ALBUMIN 3.1 g/dL (3.5-5.0); ALKALINE PHOSPHATASE 124 U/L (38-126); ANION GAP 12.4 MEQ/L (5-15); BLOOD UREA NITROGEN 8 mg/dL (9-20); CHLORIDE 107 mmol/L (98-107); Calcium 8.5 mg/dL (8.4-10.2); Carbon Dioxide 26 mmol/L (22-30); Creatinine 1 1.11 mg/dL (0.66-1.25); EST GLOMERULAR FILTRATION RATE > 60.0 ML/MIN; Glucose 100 mg/dL (74-106); Potassium 3.6 mmol/L (3.5-5.1); SGOT/AST 17 U/L (17-59); SGPT/ALT 13 U/L (0-50); SODIUM 142 mmol/L (137-145); Total Protein 5.8 g/dL (6.3-8.2)
--- NOTE | 2020-10-23 08:10 | XRAY ---
Indication: Headache and weakness. Bilateral extremity numbness. Multiple contiguous axial images obtained through the head without contrast. Comparison: March 22, 2020. There is again age-appropriate global atrophy and minimal periventricular degenerative micro-ischemia bilaterally. No acute intracranial hemorrhage, abnormal extra-axial fluid collection, or mass effect. Fourth ventricle is midline without hydrocephalus. Bony calvarium intact. Visualized paranasal sinuses and mastoid air cells are clear. Impression: Continued nonacute senile brain. Comment: Preliminary interpretation was made by [facility]. No critical discrepancy.
[2020-10-23 08:28] LABS: BAND 1 % (0.0-2.0); Eosinophil 1 % (0.00-3.0); Lymphocytes 30 % (24-44); Monocyte 6 % (0.0-12.0); Neutrophils 62 % (36.-66.); Total Cells Counted 100
[2020-10-23 08:29] LABS: Platelet Estimate NORMAL (NORMAL)
[2020-10-23] MEDS: Lopressor 50 MG PO SCH ×2 (12:11→20:58)
[2020-10-23] MEDS: Flomax 0.4 MG PO SCH (12:12)
[2020-10-23] MEDS: hydroDIURIL 25 MG PO SCH (12:12)
[2020-10-23] MEDS: MAG-OX 400 PO SCH (12:12)
[2020-10-23] MEDS: Amaryl 2 MG PO SCH (12:13)
[2020-10-23] MEDS: Protonix 40MG Tablet PO SCH (12:14)
[2020-10-23] MEDS: PLAVIX 75 MG Tablet PO SCH (12:14)
[2020-10-23] MEDS: Cozaar 50 MG PO SCH (12:14)
[2020-10-23] MEDS: Klonopin 0.5 MG PO SCH ×2 (12:14→20:58)
[2020-10-23] MEDS: Klor Con 10 MEQ PO SCH ×2 (12:21→20:58)
[2020-10-23] MEDS: LASIX 20 MG PO SCH (12:21)
[2020-10-23] MEDS: NORVASC 5 MG PO SCH ×2 (12:22→20:58)
[2020-10-23] MEDS: ZYLOPRIM 100 MG PO SCH (12:22)
[2020-10-23] MEDS: Neurontin 100 MG PO SCH ×2 (15:25→20:58)
[2020-10-23] MEDS: Carafate 1 GM PO SCH ×2 (15:27→20:57)
[2020-10-23] MEDS ORDERED: NON-FORMULARY ITEM (Potassium Chloride [Klor-Con M20] 20 MEQ) PO SCH (22:00)
[2020-10-23] MEDS ORDERED: NON-FORMULARY ITEM (Metoprolol Tartrate [Metoprolol Tartrate] 100 MG) PO SCH (22:00)
[2020-10-23] MEDS ORDERED: ZOCOR 20MG PO SCH (22:00)
[2020-10-24] MEDS: Sodium Chloride 0.9% 1000 ML 1,000 ML IV SCH (04:04)
[2020-10-24 04:53] LABS: Hematocrit 34.7 % (42-50); Hemoglobin 10.6 gm/dl (12.5-18.0); Mean Cell Volume 81.5 fl (78-100); Mean Corpuscular Hemoglobin 24.9 pg (26-32); Mean Corpuscular Hgb Concent. 30.5 g/dl (32-36); Mean Platelet Volume 9.9 fl (7.5-11.0); Platelet Count 137 K/mm3 (150-450); Red Blood Count 4.26 M/mm3 (4.1-5.6); Red Cell Distribution Width 18.8 % (11.5-14.0); White Blood Count 5.3 K/mm3 (4.0-10.5)
[2020-10-24 05:17] LABS: ANION GAP 13.2 MEQ/L (5-15); BLOOD UREA NITROGEN 9 mg/dL (9-20); CHLORIDE 103 mmol/L (98-107); Calcium 8.5 mg/dL (8.4-10.2); Carbon Dioxide 25 mmol/L (22-30); Creatinine 1 1.02 mg/dL (0.66-1.25); EST GLOMERULAR FILTRATION RATE > 60.0 ML/MIN; Glucose 108 mg/dL (74-106); Potassium 3.6 mmol/L (3.5-5.1); SODIUM 139 mmol/L (137-145)
[2020-10-24] MEDS: Carafate 1 GM PO SCH ×2 (08:01→12:16)
[2020-10-24] MEDS: hydroDIURIL 25 MG PO SCH (09:33)
[2020-10-24] MEDS: Protonix 40MG Tablet PO SCH (09:33)
[2020-10-24] MEDS: Neurontin 100 MG PO SCH ×2 (09:34→14:29)
[2020-10-24] MEDS: Klonopin 0.5 MG PO SCH (09:34)
[2020-10-24] MEDS: PLAVIX 75 MG Tablet PO SCH (09:34)
[2020-10-24] MEDS: Klor Con 10 MEQ PO SCH (09:34)
[2020-10-24] MEDS: Lopressor 50 MG PO SCH (09:34)
[2020-10-24] MEDS: LASIX 20 MG PO SCH (09:34)
[2020-10-24] MEDS: Amaryl 2 MG PO SCH (09:35)
[2020-10-24] MEDS: NORVASC 5 MG PO SCH (09:35)
[2020-10-24] MEDS: ZYLOPRIM 100 MG PO SCH (09:35)
[2020-10-24] MEDS: MAG-OX 400 PO SCH (09:35)
[2020-10-24] MEDS: Flomax 0.4 MG PO SCH (09:35)
[2020-10-24] MEDS: Cozaar 50 MG PO SCH (09:35)
[2020-10-24] MEDS ORDERED: PANTOPRAZOLE SODIUM 40 MG PO SCH (10:00)
[2020-10-24] MEDS ORDERED: NON-FORMULARY ITEM (Pravastatin Sodium [Pravachol] 20 MG) PO SCH (10:00)
[2020-10-24] MEDS ORDERED: Ecotrin 325 MG PO SCH (10:00)
[2020-10-24] MEDS ORDERED: NON-FORMULARY ITEM (Glimepiride [Glimepiride] 1 MG) PO SCH (10:00)
[2020-10-24] MEDS ORDERED: NON-FORMULARY ITEM (Losartan Potassium [Cozaar] 50 MG) PO SCH (10:00)
[2020-10-24 11:29] VITALS: BP 125/58; PULSE 69; O2SAT 95
--- NOTE | 2020-10-24 13:13 | PCM.SSS ---
History of Present Illness - Chief Complaint Chief Complaint: weakness in left upper extrimity, difficulty in walking, st arted 12 hrs ago History of Present Illness: is a 89 year old male was bought in to ER by his daughter c/o weakness in left upper and lower extrimities, withdifficulty in walking started approximately 12 hours ago. - Review of Systems Constitutional: Lethargy, Weakness, No Fever, No Chills Eyes: No Symptoms Ears, Nose, & Throat: No Symptoms Respiratory: No Cough, No Short Of Breath Cardiac: No Chest Pain, No Edema, No Syncope Abdominal/Gastrointestinal: No Abdominal Pain, No Nausea, No Vomiting, No Diarrhea Genitourinary Symptoms: No Dysuria Musculoskeletal: No Back Pain, No Neck Pain Skin: No Rash Neurological: Focal Weakness, Gait Changes, Headache, Lethargy, Parasthesia, No Dizziness, No Sensory Changes Psychological: No Symptoms Endocrine: No Symptoms Hematologic/Lymphatic: No Symptoms Immunological/Allergic: No Symptoms Medications & Allergies Home Medications: Home Medication List Allopurinol 100 mg [Zyloprim 100 mg] 100 mg PO DAILY 08/11/19 [History Confirmed 10/22/20] Glimepiride 1 mg PO DAILY 08/11/19 [History Confirmed 10/22/20] Sucralfate 1 gm [Carafate 1 GM] 1 gm PO ACHS 08/11/19 [History Confirmed 10/22/20] Tamsulosin HCl 0.4 mg [Flomax 0.4 MG] 0.4 mg PO DAILY 08/11/19 [History Confirmed 10/22/20] clonazePAM [Clonazepam] 0.5 mg PO BID 08/19/19 [History Confirmed 10/22/20] Gabapentin 100 cap PO TID 02/28/20 [History Confirmed 10/22/20] Magnesium Oxide 400 mg [Mag-Ox 400] 400 mg PO DAILY 04/08/20 [History Confirmed 10/22/20] Pantoprazole Sodium [Protonix] 40 mg PO DAILY 04/08/20 [History Confirmed 10/22/20] Losartan Potassium [Cozaar] 50 mg PO DAILY 05/27/20 [History Confirmed 10/22/20] Metoprolol Tartrate 100 mg PO BID 06/30/20 [History Confirmed 10/22/20] Amlodipine Besylate 5 mg [Norvasc 5 mg] 5 mg PO BID 10/22/20 [History Confirmed 10/22/20] Furosemide 20 mg [Lasix 20 mg] 20 mg PO DAILY 10/22/20 [History Confirmed 10/22/20] Hydrochlorothiazide 25 mg [hydroDIURIL 25 MG] 12.5 mg PO DAILY 10/22/20 [History Confirmed 10/22/20] Potassium Chloride [Klor-Con M20] 20 meq PO BID 10/22/20 [History Confirmed 10/22/20] Pravastatin Sodium [Pravachol] 20 mg PO DAILY 10/22/20 [History Confirmed 10/22/20] Allergies/Adverse Reactions: Allergies Allergy/AdvReac Type Severity Reaction Status Date / Time aspirin AdvReac Verified 10/22/20 20:28 - Past Medical History Past Medical History: Yes Neurological History: TIA ENT History: No Pertinent History Cardiac History: Arrhythmia, High Cholesterol, Hypertension, Myocardial Inf arction ([place]) Respiratory History: Bronchitis Endocrine Medical History: Diabetes Type II Musculoskelatal History: Arthritis GI Medical History: GERD History: No Pertinent History Pyscho-Social History: Anxiety Male Reproductive Disorders: Prostate Cancer Comment: Gout, 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 HX Prostate CA - Past Surgical History Past Surgical History: Yes Neuro Surgical History: No Pertinent History Cardiac History: No Pertinent History Respiratory Surgery: No Pertinent History GI Surgical History: Hemorrhoidectomy Genitourinary Surgical Hx: No Pertinent History Musculskeletal Surgical Hx: Orthopedic Surgery Male Surgical History: No Pertinent History Other Surgical History: LT ARM - Social History Smoking Status: Never smoker How long have you smoked: 10 yrs Exposure to second hand smoke: Yes Alcohol: None Drug Use: none Significant Family History: no pertinent family hx - Physical Exam Vital Signs: Vital Signs - 24 hr Temp Pulse Resp BP Pulse Ox 10/24/20 11:28 98.8 F 69 16 125/58 95 10/24/20 06:50 98.0 F 62 16 141/67 93 L 10/24/20 03:24 98.6 F 61 14 140/65 95 10/23/20 23:27 97.8 F 66 20 150/74 98 10/23/20 19:29 98.0 F 65 17 143/70 96 10/23/20 16:00 98.0 F 58 L 16 153/69 98 Oxygen-Last 24 hours Oxygen Flowrate (L/min)-RT 2 General Appearance: no apparent distress, alert Neurologic Exam: alert, oriented x 3, cooperative, normal mood/affect, sensory deficit, motor weakness Eye Exam: PERRL/EOMI, eyes nml inspection Ears, Nose, Throat Exam: normal ENT inspection, TMs normal, pharynx normal, moist mucous membranes Neck Exam: normal inspection, non-tender, supple, full range of motion Respiratory Exam: normal breath sounds, lungs clear, No respiratory distress Cardiovascular Exam: regular rate/rhythm, normal heart sounds, normal peripheral pulses Gastrointestinal/Abdomen Exam: soft, normal bowel sounds, No tenderness, No mass Back Exam: normal inspection, normal range of motion, No CVA tenderness, No vertebral tenderness Extremity Exam: normal inspection, normal range of motion, pelvis stable Skin Exam: normal color, warm, dry, No rash Lymphatic Exam: No adenopathy Results - Labs Lab/Micro Results: Lab Results-Last 24 Hours 10/23/20 10/23/20 10/24/20 Range/Units 16:36 19:59 04:30 WBC 5.3 (4.0-10.5) K/mm3 RBC 4.26 (4.1-5.6) M/mm3 Hgb 10.6 L (12.5-18.0) gm/dl Hct 34.7 L (42-50) % MCV 81.5 (78-100) fl MCH 24.9 L (26-32) pg MCHC 30.5 L (32-36) g/dl RDW 18.8 H (11.5-14.0) % Plt Count 137 L (150-450) K/mm3 MPV 9.9 (7.5-11.0) fl Sodium (137-145) mmol/L Potassium (3.5-5.1) mmol/L Chloride (98-107) mmol/L Carbon Dioxide (22-30) mmol/L Anion Gap (5-15) MEQ/L BUN (9-20) mg/dL Creatinine (0.66-1.25) mg/dL Estimated GFR ML/MIN Glucose (74-106) mg/dL POC Glucometer 132 H 125 H (74 to 106) mg/dL Calcium (8.4-10.2) mg/dL 10/24/20 10/24/20 10/24/20 Range/Units 04:30 06:30 11:21 WBC (4.0-10.5) K/mm3 RBC (4.1-5.6) M/mm3 Hgb (12.5-18.0) gm/dl Hct (42-50) % MCV (78-100) fl MCH (26-32) pg MCHC (32-36) g/dl RDW (11.5-14.0) % Plt Count (150-450) K/mm3 MPV (7.5-11.0) fl Sodium 139 (137-145) mmol/L Potassium 3.6 (3.5-5.1) mmol/L Chloride 103 (98-107) mmol/L Carbon Dioxide 25 (22-30) mmol/L Anion Gap 13.2 (5-15) MEQ/L BUN 9 (9-20) mg/dL Creatinine 1.02 (0.66-1.25) mg/dL Estimated GFR > 60.0 ML/MIN Glucose 108 H (74-106) mg/dL POC Glucometer 100 148 H (74 to 106) mg/dL Calcium 8.5 (8.4-10.2) mg/dL Accuchecks Date 10/24/20 Date 10/23/20 Date 10/23/20 Time 11:27 Time 22:00 Time 17:02 - Radiology Impressions Radiology Exams & Impressions: Radiology Procedures Category Date Time Status ECHO W/2D AND DOPPLER [US] Routine Exams 10/24/20 08:00 Taken HEAD WITHOUT CONTRAST [CT] Stat Exams 10/22/20 20:29 Completed Assessment/Plan (1) TIA (transient ischemic attack) Current Visit: Yes Status: Acute Code(s): G45.9 - TRANSIENT CEREBRAL ISCHEMIC ATTACK, UNSPECIFIED (2) Left-sided weakness Current Visit: Yes Status: Acute Code(s): R53.1 - WEAKNESS (3) CHF (congestive heart failure), NYHA class IV Current Visit: Yes Status: Acute Qualifiers: Congestive heart failure type: combined Congestive heart failure chronicity: chronic Qualified Code(s): I50.42 - Chronic combined systolic (congestive) and diastolic (congestive) heart failure Code(s): I50.9 - HEART FAILURE, UNSPECIFIED (4) COPD (chronic obstructive pulmonary disease) Current Visit: No Status: Acute Qualifiers: COPD type: unspecified COPD Qualified Code(s): J44.9 - Chronic obstructive pulmonary disease, unspecified (5) Calcified cerebral meningioma Current Visit: No Status: Acute Code(s): D32.0 - BENIGN NEOPLASM OF CEREBRAL MENINGES (6) HTN (hypertension) Current Visit: No Status: Acute Qualifiers: Code(s): I10 - ESSENTIAL (PRIMARY) HYPERTENSION Hospital Summary - Hospital Course Hospital Course: Chief Complaint Diagnosis TIA Allergies Allergy/AdvReac Type Severity Reaction Status Date / Time aspirin AdvReac Verified 10/22/20 20:28 Vital Signs (Last 24 hours) Temp Pulse Resp BP Pulse Ox 10/24/20 11:28 98.8 F 69 16 125/58 95 10/24/20 06:50 98.0 F 62 16 141/67 93 L 10/24/20 03:24 98.6 F 61 14 140/65 95 10/23/20 23:27 97.8 F 66 20 150/74 98 10/23/20 19:29 98.0 F 65 17 143/70 96 10/23/20 16:00 98.0 F 58 L 16 153/69 98 Home Medications Medication Instructions Recorded Confirmed Last Taken Type Amlodipine Besylate 5 mg 5 mg PO BID 10/22/20 10/22/20 Unknown History [Norvasc 5 mg] Furosemide 20 mg [Lasix 20 20 mg PO DAILY 10/22/20 10/22/20 Unknown History mg] Hydrochlorothiazide 25 mg 12.5 mg PO DAILY 10/22/20 10/22/20 Unknown History [hydroDIURIL 25 MG] Potassium Chloride [Klor-Con M20] 20 meq PO BID 10/22/20 10/22/20 Unknown History Pravastatin Sodium [Pravachol] 20 mg PO DAILY 10/22/20 10/22/20 Unknown History Current Medications Generic Name Dose Route Start Last Admin Trade Name Freq PRN Reason Stop Dose Admin Acetaminophen 650 mg 10/22/20 22:10 Tylenol 325 Mg PO 11/21/20 22:09 Q4H PRN PRN PAIN AND/OR FEVER Allopurinol 100 mg 10/23/20 12:15 10/24/20 09:35 Zyloprim 100 Mg PO 11/22/20 12:14 100 mg DAILY DRAKE Administration Amlodipine Besylate 5 mg 10/23/20 13:00 10/24/20 09:35 Norvasc 5 Mg PO 11/22/20 12:59 5 mg BID DRAKE Administration Aspirin 325 mg 10/24/20 10:00 10/24/20 09:34 Ecotrin 325 Mg PO 11/23/20 09:59 325 mg DAILY DRAKE Administration Clonazepam 0.5 mg 10/23/20 12:00 10/24/20 09:34 Klonopin 0.5 Mg PO 11/22/20 11:59 0.5 mg BID DRAKE Administration Clopidogrel Bisulfate 75 mg 10/23/20 12:00 10/24/20 09:34 Plavix 75 Mg Tablet PO 11/22/20 11:59 75 mg DAILY DRAKE Administration Furosemide 20 mg 10/23/20 12:00 10/24/20 09:34 Lasix 20 Mg PO 11/22/20 11:59 20 mg DAILY DRAKE Administration Gabapentin 100 mg 10/23/20 15:00 10/24/20 09:34 Neurontin 100 Mg PO 11/22/20 14:59 100 mg TID DRAKE Administration Glimepiride 1 mg 10/23/20 12:15 10/24/20 09:35 Amaryl 2 Mg PO 11/22/20 12:14 1 mg DAILY DRAKE Administration Hydrochlorothiazide 12.5 mg 10/23/20 12:00 10/24/20 09:33 Hydrodiuril 25 Mg PO 11/22/20 11:59 12.5 mg DAILY DRAKE Administration Sodium Chloride 1,000 mls @ 100 mls/hr 10/22/20 22:10 10/24/20 04:04 Sodium Chloride 0.9% 1000 Ml IV 11/21/20 22:09 100 mls/hr .Q10H DRAKE Administration Insulin Human Lispro 0 unit 10/22/20 22:10 Humalog SQ 11/21/20 22:09 UD PRN HYPERGLYCEMIA Losartan Potassium 50 mg 10/23/20 12:15 10/24/20 09:35 Cozaar 50 Mg PO 11/22/20 12:14 50 mg DAILY DRAKE Administration Magnesium Oxide 400 mg 10/23/20 12:00 10/24/20 09:35 Mag-Ox 400 PO 11/22/20 11:59 400 mg DAILY DRAKE Administration Metoprolol Tartrate 100 mg 10/23/20 12:15 10/24/20 09:34 Lopressor 50 Mg PO 11/22/20 12:14 100 mg BID DRAKE Administration Ondansetron HCl 4 mg 10/22/20 22:10 Zofran 4 Mg/2 Ml Vial IV 11/21/20 22:09 Q6H PRN PRN NAUSEA/VOMITING Pantoprazole Sodium 40 mg 10/23/20 12:15 10/24/20 09:33 Protonix 40mg Tablet PO 11/22/20 12:14 40 mg DAILY DRAKE Administration Potassium Chloride 20 meq 10/23/20 12:15 10/24/20 09:34 Klor Con 10 Meq PO 11/22/20 12:14 20 meq BID DRAKE Administration Simvastatin 20 mg 10/23/20 22:00 10/23/20 20:58 Zocor 20mg PO 11/22/20 21:59 20 mg HS DRAKE Administration Sucralfate 1 g 10/23/20 16:30 10/24/20 12:16 Carafate 1 Gm PO 11/22/20 16:29 1 g ACHS DRAKE Administration Tamsulosin HCl 0.4 mg 10/23/20 12:00 10/24/20 09:35 Flomax 0.4 Mg PO 11/22/20 11:59 0.4 mg DAILY DRAKE Administration Discontinued Medications Generic Name Dose Route Start Last Admin Trade Name Freq PRN Reason Stop Dose Admin Sodium Chloride 1,000 mls @ 50 mls/hr 10/22/20 20:30 10/22/20 20:44 Sodium Chloride 0.9% 1000 Ml IV 11/21/20 20:29 50 mls/hr .Q20H DRAKE Administration Intake & Output (Last 24 hours) 10/22/20 10/23/20 10/24/20 10/25/20 11:59 11:59 11:59 11:59 Intake Total 980 1819 Output Total 4661 4250 Balance -870 -2438 Weight 85.7 kg Laboratory Results (Last 24 hours) 10/24/20 10/24/20 10/24/20 11:21 06:30 04:30 WBC RBC Hgb Hct MCV MCH MCHC RDW Plt Count MPV Sodium 139 Potassium 3.6 Chloride 103 Carbon Dioxide 25 Anion Gap 13.2 BUN 9 Creatinine 1.02 Estimated GFR > 60.0 Glucose 108 H POC Glucometer 148 H 100 Calcium 8.5 10/24/20 10/23/20 10/23/20 04:30 19:59 16:36 WBC 5.3 RBC 4.26 Hgb 10.6 L Hct 34.7 L MCV 81.5 MCH 24.9 L MCHC 30.5 L RDW 18.8 H Plt Count 137 L MPV 9.9 Sodium Potassium Chloride Carbon Dioxide Anion Gap BUN Creatinine Estimated GFR Glucose POC Glucometer 125 H 132 H Calcium Orders (Last 24 hours) Category Date Time Status Discharge Routine Discharge 10/24/20 Ordered Discharge/Telephone Order Routine Discharge 10/24/20 Active ECHO W/2D AND DOPPLER [US] Routine Exams 10/24/20 08:00 Taken BMP AM.LAB Lab 10/24/20 04:30 Completed CBC AM.LAB Lab 10/24/20 04:30 Completed POCT GLUCOSE Stat Lab 10/23/20 16:36 Completed POCT GLUCOSE Stat Lab 10/23/20 19:59 Completed POCT GLUCOSE Stat Lab 10/24/20 06:30 Completed POCT GLUCOSE Stat Lab 10/24/20 11:21 Completed Allopurinol 100 mg [Zyloprim 100 mg] Med 10/23/20 12:15 Active 100 mg PO DAILY Amlodipine Besylate 5 mg [Norvasc 5 mg] Med 10/23/20 13:00 Active 5 mg PO BID Aspirin EC 325 mg [Ecotrin 325 MG] Med 10/24/20 10:00 Active 325 mg PO DAILY Gabapentin 100 mg [Neurontin 100 MG] Med 10/23/20 15:00 Active 100 mg PO TID Glimepiride 2 mg [Amaryl 2 MG] Med 10/23/20 12:15 Active 1 mg PO DAILY Losartan Potassium 50 mg [Cozaar 50 MG] Med 10/23/20 12:15 Active 50 mg PO DAILY Metoprolol Tartrate 50 mg [Lopressor 50 MG] Med 10/23/20 12:15 Active 100 mg PO BID PANTOPRAZOLE 40 mg Tablet [Protonix 40MG Tablet] Med 10/23/20 12:15 Active 40 mg PO DAILY Potassium Chloride 10 Meq Tab* [Klor Con 10 MEQ] Med 10/23/20 12:15 Active 20 meq PO BID Simvastatin 20Mg [Zocor 20Mg] Med 10/23/20 22:00 Active 20 mg PO HS Sucralfate 1 gm [Carafate 1 GM] Med 10/23/20 16:30 Active 1 g PO ACHS Patient Care Notes (Last 24 hours) 10/24/20 11:08 Nursing Note by Bruna Lal Unable to do MRI/MRA due to inabliltiy to lay flat. Dr Dunne notified. Order to DC home and resume home meds. Initialized on 10/24/20 11:08 - END OF NOTE 10/24/20 10:37 Nursing Note by Bruna Lal TO radiology Initialized on 10/24/20 10:37 - END OF NOTE - Vitals & Intake/Output Vital Signs: Vital Signs Temperature 98.8 F 10/24/20 11:28 Pulse Rate 69 10/24/20 11:28 Respiratory Rate 16 10/24/20 11:28 Blood Pressure 125/58 10/24/20 11:28 O2 Sat by Pulse Oximetry 95 10/24/20 11:28 Intake & Output: Intake & Output 10/22/20 10/23/20 10/24/20 10/25/20 11:59 11:59 11:59 11:59 Intake Total 980 1819 Output Total 8840 4250 Balance -870 2431 Weight 85.7 kg - Lab Result Diagrams: 10/24/20 04:30 10/24/20 04:30 Lab Results-Last 24 Hrs: Lab Results-Last 24 Hours 10/23/20 10/23/20 10/24/20 Range/Units 16:36 19:59 04:30 WBC 5.3 (4.0-10.5) K/mm3 RBC 4.26 (4.1-5.6) M/mm3 Hgb 10.6 L (12.5-18.0) gm/dl Hct 34.7 L (42-50) % MCV 81.5 (78-100) fl MCH 24.9 L (26-32) pg MCHC 30.5 L (32-36) g/dl RDW 18.8 H (11.5-14.0) % Plt Count 137 L (150-450) K/mm3 MPV 9.9 (7.5-11.0) fl Sodium (137-145) mmol/L Potassium (3.5-5.1) mmol/L Chloride (98-107) mmol/L Carbon Dioxide (22-30) mmol/L Anion Gap (5-15) MEQ/L BUN (9-20) mg/dL Creatinine (0.66-1.25) mg/dL Estimated GFR ML/MIN Glucose (74-106) mg/dL POC Glucometer 132 H 125 H (74 to 106) mg/dL Calcium (8.4-10.2) mg/dL 10/24/20 10/24/20 10/24/20 Range/Units 04:30 06:30 11:21 WBC (4.0-10.5) K/mm3 RBC (4.1-5.6) M/mm3 Hgb (12.5-18.0) gm/dl Hct (42-50) % MCV (78-100) fl MCH (26-32) pg MCHC (32-36) g/dl RDW (11.5-14.0) % Plt Count (150-450) K/mm3 MPV (7.5-11.0) fl Sodium 139 (137-145) mmol/L Potassium 3.6 (3.5-5.1) mmol/L Chloride 103 (98-107) mmol/L Carbon Dioxide 25 (22-30) mmol/L Anion Gap 13.2 (5-15) MEQ/L BUN 9 (9-20) mg/dL Creatinine 1.02 (0.66-1.25) mg/dL Estimated GFR > 60.0 ML/MIN Glucose 108 H (74-106) mg/dL POC Glucometer 100 148 H (74 to 106) mg/dL Calcium 8.5 (8.4-10.2) mg/dL Micro Results-Entire Visit: Accuchecks Date 10/24/20 Date 10/23/20 Date 10/23/20 Time 11:27 Time 22:00 Time 17:02 - Radiology Exams Ordered Rad Exams-Entire Visit: Radiology Procedures Category Date Time Status ECHO W/2D AND DOPPLER [US] Routine Exams 10/24/20 08:00 Taken HEAD WITHOUT CONTRAST [CT] Stat Exams 10/22/20 20:29 Completed - Discharge Discharge Date: 10/24/20 Disposition: Home, Self-Care Condition: Stable Prescriptions: Continue Tamsulosin HCl 0.4 mg [Flomax 0.4 MG] 0.4 mg PO DAILY Allopurinol 100 mg [Zyloprim 100 mg] 100 mg PO DAILY Sucralfate 1 gm [Carafate 1 GM] 1 gm PO ACHS Glimepiride 1 mg PO DAILY clonazePAM [Clonazepam] 0.5 mg PO BID Gabapentin 100 cap PO TID Pantoprazole Sodium [Protonix] 40 mg PO DAILY Magnesium Oxide 400 mg [Mag-Ox 400] 400 mg PO DAILY Losartan Potassium [Cozaar] 50 mg PO DAILY Metoprolol Tartrate 100 mg PO BID Hydrochlorothiazide 25 mg [hydroDIURIL 25 MG] 12.5 mg PO DAILY Furosemide 20 mg [Lasix 20 mg] 20 mg PO DAILY Amlodipine Besylate 5 mg [Norvasc 5 mg] 5 mg PO BID Pravastatin Sodium [Pravachol] 20 mg PO DAILY Potassium Chloride [Klor-Con M20] 20 meq PO BID Instructions: Transient Ischemic Attack (DC) Follow up with: CHANDANA DUNNE MD [Primary Care Provider] - 10/31/20 2:30 pm Forms: Discharge Instructions
--- NOTE | 2020-10-25 13:48 | ECHO ---
Transthoracic echocardiographic examination and color Doppler was done on 10/24/2020. INDICATION: Shortness of breath. IMPRESSION: 1) THE LEFT VENTRICLE WAS ONLY PARTIALLY VISUALIZED AND THIS DEMONSTRATED ADEQUATE MOTION WITH AN ESTIMATED GLOBAL LEFT VENTRICULAR EJECTION FRACTION OF AROUND 60%. 2) THERE IS LEFT VENTRICULAR HYPERTROPHY. 3) LEFT VENTRICULAR DIASTOLIC DYSFUNCTION 4/ TRACE MITRAL REGURGITATION 5/ TRACE TRICUSPID REGURGITATION WITH RVSP OF 28 MMHG The mitral valve was seen and this opens adequately. There is trace mitral regurgitation. Left atrium appears to be normal. The aortic valve appears to open adequately. There is trace tricuspid regurgitation. The right ventricular systolic pressure of 28 mm of [place]. The tissue Doppler study of the lateral mitral annulus suggestive of left ventricular diastolic dysfunction.
== END 2020-10-24 15:30 | disposition home or self-care (01) ==
LOC: ED 20:23 → MED SURG 22:05
PROVIDERS: ADMIT General Practice; ATTEND General Practice
DX: G45.9 Transient cerebral ischemic attack, unspecified (principal); R51.9 Headache, unspecified; R20.0 Anesthesia of skin; D32.0 Benign neoplasm of cerebral meninges; I11.0 Hypertensive heart disease with heart failure; I50.9 Heart failure, unspecified; Z86.73 Personal history of transient ischemic attack (TIA), and cerebral infarction without residual deficits; Z79.899 Other long term (current) drug therapy; E11.9 Type 2 diabetes mellitus without complications; J44.9 Chronic obstructive pulmonary disease, unspecified; E78.00 Pure hypercholesterolemia, unspecified; Z85.46 Personal history of malignant neoplasm of prostate; Z20.828 Contact with and (suspected) exposure to other viral communicable diseases
CPT/HCPCS: 0241U; 36000; 36415; 70450; 80048; 80053; 81001; 82947; 83036; 84484; 85025; 85027; 93005; 93041; 93268; 93306; 96360; 96361; 99285; 99291; G0378; A9270-GY

== ENCOUNTER 2020-12-17 19:01 | Observation (INO) | payer MEDICARE ==
[2020-12-17] MEDS ORDERED: Sodium Chloride 0.9% 1000 ML 1,000 ML IV SCH (19:30)
[2020-12-17] MEDS ORDERED: Sodium Chloride 0.9% 1000 ML 1,000 ML ONE (19:33)
--- NOTE | 2020-12-17 19:35 | ERPHSYRPT ---
- History of Present Illness Time Seen by Provider: 12/17/20 19:30 Source: patient, family Exam Limitations: no limitations Patient Subjective Stated Complaint: Pt states "I was out in the barn lot and all of a sudden I could not see. I had a headache yesterday. I can see better now but my vision is still off." Triage Nursing Assessment: Pt presented alert and oriented X 3, skin pwd. 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 Physician History: Pt states "I was out in the barn lot and all of a sudden I could not see. I had a headache yesterday. I can see better now but my vision is still off." Patient was working in the yard suddenly started having a headache yesterday today morning he started having some slurred speech and weakness and blurred vision so his daughter brought him into the emergency room. In the emergency room his all other symptoms resolved but still has some blurred vision. Denies any other symptoms. Able to talk properly as well as answers properly. Time of Onset/Last Time Seen Normal: since yesterday, got worse today. now except for some blurred vision,Im ok Timing/Duration: yesterday Severity: mild Character of Deficits: new weakness, impaired speech, vision problems Deficits: no difficulties Baseline/Normal Cognition: alert oriented x 3 Current Cognition: alert oriented x 3 Baseline Gait: uses cane Allergies/Adverse Reactions: aspirin Adverse Reaction (Verified 10/22/20 20:28) Home Medications: Allopurinol 100 mg [Zyloprim 100 mg] 100 mg PO DAILY 08/11/19 [History] Glimepiride 1 mg PO DAILY 08/11/19 [History] Sucralfate 1 gm [Carafate 1 GM] 1 gm PO ACHS 08/11/19 [History] Tamsulosin HCl 0.4 mg [Flomax 0.4 MG] 0.4 mg PO DAILY 08/11/19 [History] clonazePAM [Clonazepam] 0.5 mg PO BID 08/19/19 [History] Gabapentin 100 cap PO TID 02/28/20 [History] Magnesium Oxide 400 mg [Mag-Ox 400] 400 mg PO DAILY 04/08/20 [History] Pantoprazole Sodium [Protonix] 40 mg PO DAILY 04/08/20 [History] Losartan Potassium [Cozaar] 50 mg PO DAILY 05/27/20 [History] Metoprolol Tartrate 100 mg PO BID 06/30/20 [History] Amlodipine Besylate 5 mg [Norvasc 5 mg] 5 mg PO BID 10/22/20 [History] Hydrochlorothiazide 25 mg [hydroDIURIL 25 MG] 12.5 mg PO DAILY 10/22/20 [History] Potassium Chloride [Klor-Con M20] 20 meq PO BID 10/22/20 [History] Pravastatin Sodium [Pravachol] 20 mg PO DAILY 10/22/20 [History] Hx Tetanus, Diphtheria Vaccination/Date Given: No Hx Influenza Vaccination/Date Given: No Hx Pneumococcal Vaccination/Date Given: No Immunizations Up to Date: Yes Travel Risk - International Travel Have you traveled outside of the country in past 3 weeks: No - Coronavirus Screening Are you exhibiting any of the following symptoms?: No Close contact with a COVID-19 positive Pt in past 14-21 Days: No - Vaccine Status Have you recieved a Covid-19 vaccination: No - Review of Systems Constitutional: No Fever, No Chills Eyes: No Symptoms Ears, Nose, & Throat: No Symptoms Respiratory: No Cough, No Dyspnea Cardiac: No Chest Pain, No Edema, No Syncope Abdominal/Gastrointestinal: No Abdominal Pain, No Nausea, No Vomiting, No Diarrhea Genitourinary Symptoms: No Dysuria Musculoskeletal: No Back Pain, No Neck Pain Skin: No Rash Neurological: Focal Weakness, Headache, Speech Changes, No Dizziness, No Sensory Changes Psychological: No Symptoms Endocrine: No Symptoms All Other Systems: Reviewed and Negative - Past Medical History Pertinent Past Medical History: Yes Neurological History: TIA ENT History: No Pertinent History Cardiac History: Arrhythmia, High Cholesterol, Hypertension, Myocardial Infarction ([place]) Respiratory History: Bronchitis Endocrine Medical History: Diabetes Type II Musculoskeletal History: Arthritis GI Medical History: GERD History: No Pertinent History Psycho-Social History: Anxiety Male Reproductive Disorders: Prostate Cancer Other Medical History: Gout, 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 HX Prostate CA - Past Surgical History Past Surgical History: Yes Neuro Surgical History: No Pertinent History Cardiac: No Pertinent History Respiratory: No Pertinent History Gastrointestinal: Hemorrhoidectomy Genitourinary: No Pertinent History Musculoskeletal: Orthopedic Surgery Male Surgical History: No Pertinent History Other Surgical History: LT ARM - Social History Smoking Status: Former smoker How long have you smoked: 10 yrs Exposure to second hand smoke: Yes Drug Use: none Patient Lives Alone: No Significant Family History: no pertinent family hx - Nursing Vital Signs Nursing Vital Signs: Initial Vital Signs Temperature 98.5 F 12/17/20 19:02 Pulse Rate 53 L 12/17/20 19:02 Respiratory Rate 18 12/17/20 19:02 Blood Pressure 152/88 12/17/20 19:02 O2 Sat by Pulse Oximetry 97 12/17/20 19:02 Pain Scale Pain Intensity 0 - [place] Coma Scale Best Eye Response (Daljit): (4) open spontaneously Best Verbal Response (Daljit): (5) oriented Best Motor Response ([place]): (6) obeys commands [place] Total: 15 - Physical Exam General Appearance: no apparent distress, alert Eye Exam: bilateral eye: PERRL, EOMI Ears, Nose, Throat Exam: normal ENT inspection, moist mucous membranes Neck Exam: normal inspection, non-tender, supple Respiratory: normal breath sounds, lungs clear, airway intact, No respiratory distress Cardiovascular: regular rate/rhythm, No edema Gastrointestinal: soft, No tenderness, No distention Back Exam: normal inspection Extremity Exam: normal inspection, No pedal edema 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, 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 Exam: tongue midline Coordination/Gait: normal finger to nose, normal gait Motor/Sensory: no motor deficit, no sensory deficit, no pronator drift Skin Exam: normal color, warm, dry, No rash SpO2: 97 - Course Nursing assessment & vital signs reviewed: Yes Ordered Tests: Active Orders 24 hr Category Date Time Status HEAD WITHOUT CONTRAST [CT] Stat Exams 12/17/20 19:30 Ordered CBC W DIFF Stat Lab 12/17/20 19:39 Completed CMP Stat Lab 12/17/20 19:39 Completed Manual Differential NC Stat Lab 12/17/20 19:39 Completed TROPONIN Stat Lab 12/17/20 19:39 Completed UA W/RFX UR CULTURE Stat Lab 12/17/20 19:29 Ordered Transfer Order Routine Transfer 12/17/20 Ordered Medication Summary Generic Name Dose Route Start Last Admin Trade Name Freq PRN Reason Stop Dose Admin Sodium Chloride 1,000 mls @ 50 mls/hr 12/17/20 19:30 12/17/20 19:35 Sodium Chloride 0.9% 1000 Ml IV 01/16/21 19:29 50 mls/hr .Q20H DRAKE Administration Lab/Rad Data: Laboratory Result Diagrams 12/17/20 19:39 12/17/20 19:39 Laboratory Results 12/17/20 12/17/20 Range/Units 19:39 19:39 WBC 4.5 (4.0-10.5) K/mm3 RBC 4.17 (4.1-5.6) M/mm3 Hgb 10.5 L (12.5-18.0) gm/dl Hct 34.5 L (42-50) % MCV 82.7 (78-100) fl MCH 25.2 L (26-32) pg MCHC 30.4 L (32-36) g/dl RDW 17.0 H (11.5-14.0) % Plt Count 160 (150-450) K/mm3 MPV 10.9 (7.5-11.0) fl Sodium 138 (137-145) mmol/L Potassium 3.9 (3.5-5.1) mmol/L Chloride 103 (98-107) mmol/L Carbon Dioxide 24 (22-30) mmol/L Anion Gap 14.8 (5-15) MEQ/L BUN 15 (9-20) mg/dL Creatinine 1.31 H (0.66-1.25) mg/dL Estimated GFR 54.9 ML/MIN Glucose 102 (74-106) mg/dL Calcium 9.0 (8.4-10.2) mg/dL Total Bilirubin 0.60 (0.2-1.3) mg/dL AST 19 (17-59) U/L ALT 12 (0-50) U/L Alkaline Phosphatase 117 (38-126) U/L Troponin I < 0.012 (0.000-0.034) ng/mL Serum Total Protein 7.2 (6.3-8.2) g/dL Albumin 4.1 (3.5-5.0) g/dL - Progress Progress: improved Discussed with Dr.: Nighat Oneil Will see patient in: hospital (observation) Counseled pt/family regarding: lab results, diagnosis, need for follow-up, rad results - Departure Departure Disposition: Observation Clinical Impression: TIA (transient ischemic attack) HTN (hypertension) Qualifiers: Hypertension type: essential hypertension Qualified Code(s): I10 - Essential (primary) hypertension CHF (congestive heart failure), NYHA class IV Qualifiers: Congestive heart failure type: combined Congestive heart failure chronicity: chronic Qualified Code(s): I50.42 - Chronic combined systolic (congestive) and diastolic (congestive) heart failure Condition: Fair Critical Care Time: Yes Critical Care Time(excluding separately billable procedures): Critical 30-74 mins Referrals: CHANDANA DUNNE MD [Primary Care Provider] - Instructions: Heart Failure
[2020-12-17 19:43] LABS: Hematocrit 34.5 % (42-50); Hemoglobin 10.5 gm/dl (12.5-18.0); Mean Cell Volume 82.7 fl (78-100); Mean Corpuscular Hemoglobin 25.2 pg (26-32); Mean Corpuscular Hgb Concent. 30.4 g/dl (32-36); Mean Platelet Volume 10.9 fl (7.5-11.0); Platelet Count 160 K/mm3 (150-450); Red Blood Count 4.17 M/mm3 (4.1-5.6); White Blood Count 4.5 K/mm3 (4.0-10.5)
[2020-12-17 20:04] LABS: ALBUMIN 4.1 g/dL (3.5-5.0); ALKALINE PHOSPHATASE 117 U/L (38-126); ANION GAP 14.8 MEQ/L (5-15); BLOOD UREA NITROGEN 15 mg/dL (9-20); CHLORIDE 103 mmol/L (98-107); Carbon Dioxide 24 mmol/L (22-30); Creatinine 1 1.31 mg/dL (0.66-1.25); EST GLOMERULAR FILTRATION RATE 54.9 ML/MIN; Glucose 102 mg/dL (74-106); Potassium 3.9 mmol/L (3.5-5.1); SGOT/AST 19 U/L (17-59); SGPT/ALT 12 U/L (0-50); SODIUM 138 mmol/L (137-145); TROPONIN < 0.012 ng/mL (0.000-0.034); Total Protein 7.2 g/dL (6.3-8.2)
[2020-12-17 20:34] LABS: INFLUENZA A NEGATIVE (NEGATIVE); INFLUENZA B NEGATIVE (NEGATIVE); RESPIRATORY SYNCTIAL VIRUS NEGATIVE (Negative)
[2020-12-17] MEDS ORDERED: TYLENOL 325 MG PO PRN (20:51)
[2020-12-17 21:11] LABS: Basophil 1 % (0.0-1.0); Eosinophil 1 % (0.00-3.0); Lymphocytes 33 % (24-44); Monocyte 16 % (0.0-12.0); Neutrophils 49 % (36.-66.); Ovalocytes 1+; Platelet Estimate NORMAL (NORMAL); Poikilocytosis 1+; Total Cells Counted 100
--- NOTE | 2020-12-17 22:42 | XRAY ---
Indication: TIA. Impaired speech. Weakness. Temporary blindness. Multiple contiguous axial images obtained through the head without contrast. Comparison: October 22, 2020. There remains age-appropriate global atrophy, minimal periventricular degenerative micro-ischemia bilaterally, and small right frontal calcified meningioma. No acute intracranial hemorrhage, abnormal extra-axial fluid collection, or mass effect. Fourth ventricle is midline without hydrocephalus. Bony calvarium intact. Visualized paranasal sinuses and mastoid air cells are clear. Impression: Continued nonacute senile brain with stable right frontal calcified meningioma. Comment: Preliminary interpretation was made by [facility]. No critical discrepancy.
[2020-12-17 23:52] LABS: Appearance CLEAR (CLEAR); Bilirubin NEGATIVE (NEGATIVE); Blood NEGATIVE Ery/ul (0-5); Epithelial Cells RARE /HPF (FEW); Glucose NEGATIVE (NEGATIVE); Ketones NEGATIVE (NEGATIVE); Leukocyte Esterase NEGATIVE (NEGATIVE); Nitrite NEGATIVE (NEGATIVE); Protein,Urine Dip NEGATIVE (Negative); Specific Gravity 1.005 (1.005-1.025); Urobilinogen NEGATIVE mg/dL (0-1); WBC 0-2 /HPF (0-5)
[2020-12-17 23:54] LABS: RBC NONE SEEN /HPF (0-2)
[2020-12-18] MEDS: NORVASC 5 MG PO SCH ×3 (00:19→21:34)
[2020-12-18] MEDS: Carafate 1 GM PO SCH ×5 (00:19→21:34)
[2020-12-18] MEDS: Neurontin 100 MG PO SCH ×4 (00:19→21:33)
[2020-12-18] MEDS: Klor Con 10 MEQ PO SCH ×2 (00:19→09:48)
[2020-12-18] MEDS: Lopressor 50 MG PO SCH ×3 (00:19→21:34)
[2020-12-18] MEDS: Klonopin 0.5 MG PO SCH ×3 (00:20→21:34)
[2020-12-18] MEDS: Sodium Chloride 0.9% 1000 ML 1,000 ML IV SCH ×2 (00:22→16:32)
[2020-12-18] MEDS ORDERED: Catapres 0.1 MG PO ONE (02:00)
[2020-12-18 06:02] LABS: Hematocrit 32.6 % (42-50); Mean Cell Volume 82.5 fl (78-100); Mean Corpuscular Hemoglobin 25.3 pg (26-32); Mean Corpuscular Hgb Concent. 30.7 g/dl (32-36); Mean Platelet Volume 10.6 fl (7.5-11.0); Platelet Count 133 K/mm3 (150-450); Red Blood Count 3.95 M/mm3 (4.1-5.6); White Blood Count 4.8 K/mm3 (4.0-10.5)
[2020-12-18 06:26] LABS: ALBUMIN 3.4 g/dL (3.5-5.0); ALKALINE PHOSPHATASE 111 U/L (38-126); ANION GAP 10.9 MEQ/L (5-15); BLOOD UREA NITROGEN 14 mg/dL (9-20); CHLORIDE 107 mmol/L (98-107); Calcium 8.3 mg/dL (8.4-10.2); Carbon Dioxide 24 mmol/L (22-30); Creatinine 1 1.17 mg/dL (0.66-1.25); EST GLOMERULAR FILTRATION RATE > 60.0 ML/MIN; Glucose 113 mg/dL (74-106); Potassium 3.7 mmol/L (3.5-5.1); SGOT/AST 21 U/L (17-59); SGPT/ALT 11 U/L (0-50); SODIUM 138 mmol/L (137-145); Total Protein 6.2 g/dL (6.3-8.2)
[2020-12-18] MEDS ORDERED: APRESOLINE 20 MG/ML INJ IV PRN (08:01)
--- NOTE | 2020-12-18 08:07 | PCM.HP ---
History of Present Illness - Chief Complaint Chief Complaint: TIA History of Present Illness: is a 89 year old male who developed sudden onset of visual changes and difficulty speaking, he had some weakness, symptoms resolved fairly quickly. he is very hard of hearing so history is difficult but he states he feels well today. - Review of Systems Constitutional: No Fever, No Chills Respiratory: No Cough, No Short Of Breath Cardiac: No Chest Pain, No Edema, No Syncope Neurological: Focal Weakness, Sensory Changes All Other Systems: Reviewed and Negative Medications & Allergies Home Medications: Home Medication List Allopurinol 100 mg [Zyloprim 100 mg] 100 mg PO DAILY 08/11/19 [History Confirmed 12/17/20] Glimepiride 1 mg PO DAILY 08/11/19 [History Confirmed 12/17/20] Sucralfate 1 gm [Carafate 1 GM] 1 gm PO ACHS 08/11/19 [History Confirmed 12/17/20] Tamsulosin HCl 0.4 mg [Flomax 0.4 MG] 0.4 mg PO DAILY 08/11/19 [History Confirmed 12/17/20] clonazePAM [Clonazepam] 0.5 mg PO BID 08/19/19 [History Confirmed 12/17/20] Gabapentin 100 mg PO TID 02/28/20 [History Confirmed 12/18/20] Magnesium Oxide 400 mg [Mag-Ox 400] 400 mg PO DAILY 04/08/20 [History Confirmed 12/17/20] Pantoprazole Sodium [Protonix] 40 mg PO DAILY 04/08/20 [History Confirmed 12/17/20] Losartan Potassium [Cozaar] 50 mg PO DAILY 05/27/20 [History Confirmed 12/17/20] Metoprolol Tartrate 100 mg PO BID 06/30/20 [History Confirmed 12/17/20] Amlodipine Besylate 5 mg [Norvasc 5 mg] 5 mg PO BID 10/22/20 [History Confirmed 12/18/20] Hydrochlorothiazide 25 mg [hydroDIURIL 25 MG] 12.5 mg PO DAILY 10/22/20 [History Confirmed 12/17/20] Potassium Chloride [Klor-Con M20] 20 meq PO BID 10/22/20 [History Confirmed 12/17/20] Pravastatin Sodium [Pravachol] 20 mg PO DAILY 10/22/20 [History Confirmed 12/17/20] Allergies/Adverse Reactions: Allergies Allergy/AdvReac Type Severity Reaction Status Date / Time aspirin AdvReac Verified 10/22/20 20:28 - Past Medical History Past Medical History: Yes Neurological History: TIA ENT History: No Pertinent History Cardiac History: Arrhythmia, High Cholesterol, Hypertension, Myocardial Infarction ([place]) Respiratory History: Bronchitis Endocrine Medical History: Diabetes Type II Musculoskelatal History: Arthritis GI Medical History: GERD History: No Pertinent History Pyscho-Social History: Anxiety Male Reproductive Disorders: Prostate Cancer Comment: Gout, 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 HX Prostate CA - Past Surgical History Past Surgical History: Yes Neuro Surgical History: No Pertinent History Cardiac History: No Pertinent History Respiratory Surgery: No Pertinent History GI Surgical History: Hemorrhoidectomy Genitourinary Surgical Hx: No Pertinent History Musculskeletal Surgical Hx: Orthopedic Surgery Male Surgical History: No Pertinent History Other Surgical History: LT ARM - Social History Smoking Status: Former smoker How long have you smoked: 10 yrs Exposure to second hand smoke: Yes (DAUGHTER) Alcohol: None Drug Use: none Significant Family History: no pertinent family hx - Physical Exam Vital Signs: Vital Signs - 24 hr Temp Pulse Resp BP Pulse Ox 12/18/20 07:32 98.2 F 55 L 16 166/84 98 12/18/20 06:43 93 L 12/18/20 05:32 160/72 12/18/20 03:35 98.2 F 56 L 12 199/81 93 L 12/18/20 01:39 188/80 12/18/20 00:00 98.3 F 59 L 18 195/88 98 12/17/20 21:41 98.5 F 55 L 19 185/82 98 12/17/20 21:05 60 173/86 98 12/17/20 20:32 97 12/17/20 20:10 63 175/87 96 12/17/20 19:02 98.5 F 53 L 18 152/88 97 Oxygen-Last 24 hours Oxygen Flowrate (L/min)-RT 99 General Appearance: no apparent distress Neurologic Exam: alert, cooperative, other (very hard of hearing), No sensory deficit, No motor weakness, No facial droop, No slurred speech Respiratory Exam: normal breath sounds Cardiovascular Exam: regular rate/rhythm, normal heart sounds, normal peripheral pulses Gastrointestinal/Abdomen Exam: soft, normal bowel sounds, No tenderness, No mass Skin Exam: normal color, warm, dry, No rash Results - Labs Lab/Micro Results: Lab Results-Last 24 Hours 12/17/20 12/17/20 12/17/20 Range/Units 19:39 19:39 19:55 WBC 4.5 (4.0-10.5) K/mm3 RBC 4.17 (4.1-5.6) M/mm3 Hgb 10.5 L (12.5-18.0) gm/dl Hct 34.5 L (42-50) % MCV 82.7 (78-100) fl MCH 25.2 L (26-32) pg MCHC 30.4 L (32-36) g/dl RDW 17.0 H (11.5-14.0) % Plt Count 160 (150-450) K/mm3 MPV 10.9 (7.5-11.0) fl Segmented Neutrophils 49 (36.-66.) % Lymphocytes (Manual) 33 (24-44) % Monocytes (Manual) 16 H (0.0-12.0) % Eosinophils (Manual) 1 (0.00-3.0) % Basophils (Manual) 1 (0.0-1.0) % Platelet Estimate NORMAL (NORMAL) RBC Morphology ABNORMAL Poikilocytosis 1+ Ovalocytes 1+ Sodium 138 (137-145) mmol/L Potassium 3.9 (3.5-5.1) mmol/L Chloride 103 (98-107) mmol/L Carbon Dioxide 24 (22-30) mmol/L Anion Gap 14.8 (5-15) MEQ/L BUN 15 (9-20) mg/dL Creatinine 1.31 H (0.66-1.25) mg/dL Estimated GFR 54.9 ML/MIN Glucose 102 (74-106) mg/dL Calcium 9.0 (8.4-10.2) mg/dL Total Bilirubin 0.60 (0.2-1.3) mg/dL AST 19 (17-59) U/L ALT 12 (0-50) U/L Alkaline Phosphatase 117 (38-126) U/L Troponin I < 0.012 (0.000-0.034) ng/mL Serum Total Protein 7.2 (6.3-8.2) g/dL Albumin 4.1 (3.5-5.0) g/dL Urine Color (YELLOW) Urine Appearance (CLEAR) Urine pH (5-6) Ur Specific [place] (1.005-1.025) Urine Protein (Negative) Urine Ketones (NEGATIVE) Urine Blood (0-5) Srinivasan/ul Urine Nitrite (NEGATIVE) Urine Bilirubin (NEGATIVE) Urine Urobilinogen (0-1) mg/dL Ur Leukocyte Esterase (NEGATIVE) Urine WBC (Auto) (0-5) /HPF Urine RBC (Auto) (0-2) /HPF U Epithel Cells (Auto) (FEW) /HPF Urine Bacteria (Auto) (NEGATIVE) /HPF Urine Culture Reflexed (NO) Urine Glucose (NEGATIVE) mg/dL Influenza Type A Ag NEGATIVE (NEGATIVE) Influenza Type B Ag NEGATIVE (NEGATIVE) RSV (PCR) NEGATIVE (Negative) SARS-CoV-2 (PCR) NEGATIVE (NEGATIVE) 12/17/20 12/18/20 12/18/20 Range/Units 23:30 05:30 05:48 WBC 4.8 (4.0-10.5) K/mm3 RBC 3.95 L (4.1-5.6) M/mm3 Hgb 10.0 L (12.5-18.0) gm/dl Hct 32.6 L (42-50) % MCV 82.5 (78-100) fl MCH 25.3 L (26-32) pg MCHC 30.7 L (32-36) g/dl RDW 17.0 H (11.5-14.0) % Plt Count 133 L (150-450) K/mm3 MPV 10.6 (7.5-11.0) fl Segmented Neutrophils (36.-66.) % Lymphocytes (Manual) (24-44) % Monocytes (Manual) (0.0-12.0) % Eosinophils (Manual) (0.00-3.0) % Basophils (Manual) (0.0-1.0) % Platelet Estimate (NORMAL) RBC Morphology Poikilocytosis Ovalocytes Sodium 138 (137-145) mmol/L Potassium 3.7 (3.5-5.1) mmol/L Chloride 107 (98-107) mmol/L Carbon Dioxide 24 (22-30) mmol/L Anion Gap 10.9 (5-15) MEQ/L BUN 14 (9-20) mg/dL Creatinine 1.17 (0.66-1.25) mg/dL Estimated GFR > 60.0 ML/MIN Glucose 113 H (74-106) mg/dL Calcium 8.3 L (8.4-10.2) mg/dL Total Bilirubin 0.50 (0.2-1.3) mg/dL AST 21 (17-59) U/L ALT 11 (0-50) U/L Alkaline Phosphatase 111 (38-126) U/L Troponin I (0.000-0.034) ng/mL Serum Total Protein 6.2 L (6.3-8.2) g/dL Albumin 3.4 L (3.5-5.0) g/dL Urine Color YELLOW (YELLOW) Urine Appearance CLEAR (CLEAR) Urine pH 7.0 (5-6) Ur Specific [place] 1.005 (1.005-1.025) Urine Protein NEGATIVE (Negative) Urine Ketones NEGATIVE (NEGATIVE) Urine Blood NEGATIVE (0-5) Srinivasan/ul Urine Nitrite NEGATIVE (NEGATIVE) Urine Bilirubin NEGATIVE (NEGATIVE) Urine Urobilinogen NEGATIVE (0-1) mg/dL Ur Leukocyte Esterase NEGATIVE (NEGATIVE) Urine WBC (Auto) 0-2 (0-5) /HPF Urine RBC (Auto) NONE SEEN (0-2) /HPF U Epithel Cells (Auto) RARE (FEW) /HPF Urine Bacteria (Auto) NONE (NEGATIVE) /HPF Urine Culture Reflexed NO (NO) Urine Glucose NEGATIVE (NEGATIVE) mg/dL Influenza Type A Ag (NEGATIVE) Influenza Type B Ag (NEGATIVE) RSV (PCR) (Negative) SARS-CoV-2 (PCR) (NEGATIVE) Accuchecks Date 12/17/20 Time 06:30 - Radiology Impressions Radiology Exams & Impressions: Radiology Procedures Category Date Time Status HEAD WITHOUT CONTRAST [CT] Stat Exams 12/17/20 19:30 Completed - Other Procedures and Tests Respiratory Therapy 12/18/20 05:28 Oxygen Nasal Cannula 2 lpm Assessment/Plan (1) TIA (transient ischemic attack) Current Visit: Yes Status: Acute Assessment & Plan: patient had an echo in October that was not remarkable, ct shows nothing acute. recommend carotid dopplers, patient has aspirin allergy, prn hydralazine for marked elevation of bp but will allow pressure to run high due to likely acute ischemic event Code(s): G45.9 - TRANSIENT CEREBRAL ISCHEMIC ATTACK, UNSPECIFIED
[2020-12-18] MEDS: ZYLOPRIM 100 MG PO SCH (09:48)
[2020-12-18] MEDS: Cozaar 50 MG PO SCH (09:53)
[2020-12-18] MEDS: Protonix 40MG Tablet PO SCH (09:56)
[2020-12-18] MEDS: Amaryl 2 MG PO SCH (09:56)
[2020-12-18] MEDS: MAG-OX 400 PO SCH (09:56)
[2020-12-18] MEDS ORDERED: NON-FORMULARY ITEM (Losartan Potassium [Cozaar] 50 MG) PO SCH (10:00)
[2020-12-18] MEDS ORDERED: PANTOPRAZOLE SODIUM 40 MG PO SCH (10:00)
[2020-12-18] MEDS ORDERED: Flomax 0.4 MG PO SCH (10:00)
[2020-12-18] MEDS ORDERED: NON-FORMULARY ITEM (Glimepiride [Glimepiride] 1 MG) PO SCH (10:00)
[2020-12-18] MEDS ORDERED: Cozaar 50 MG PO SCH (22:00)
[2020-12-19] MEDS: Cozaar 50 MG PO SCH (04:41)
[2020-12-19 06:13] LABS: Hematocrit 33.5 % (42-50); Hemoglobin 10.1 gm/dl (12.5-18.0); Mean Cell Volume 83.3 fl (78-100); Mean Corpuscular Hemoglobin 25.1 pg (26-32); Mean Corpuscular Hgb Concent. 30.1 g/dl (32-36); Platelet Count 142 K/mm3 (150-450); Red Blood Count 4.02 M/mm3 (4.1-5.6); Red Cell Distribution Width 17.3 % (11.5-14.0); White Blood Count 4.8 K/mm3 (4.0-10.5)
[2020-12-19 07:04] LABS: ANION GAP 9.9 MEQ/L (5-15); BLOOD UREA NITROGEN 13 mg/dL (9-20); CHLORIDE 108 mmol/L (98-107); Calcium 8.3 mg/dL (8.4-10.2); Carbon Dioxide 24 mmol/L (22-30); EST GLOMERULAR FILTRATION RATE > 60.0 ML/MIN; Glucose 95 mg/dL (74-106); Potassium 3.6 mmol/L (3.5-5.1); SODIUM 139 mmol/L (137-145)
[2020-12-19] MEDS: Carafate 1 GM PO SCH ×2 (07:55→11:42)
[2020-12-19 08:13] LABS: Eosinophil 2 % (0.00-3.0); Lymphocytes 31 % (24-44); Monocyte 11 % (0.0-12.0); Neutrophils 56 % (36.-66.); Platelet Estimate DECREASED (NORMAL); Total Cells Counted 100
[2020-12-19] MEDS: NORVASC 5 MG PO SCH (10:04)
[2020-12-19] MEDS: Amaryl 2 MG PO SCH (10:04)
[2020-12-19] MEDS: Neurontin 100 MG PO SCH (10:05)
[2020-12-19] MEDS: Lopressor 50 MG PO SCH (10:05)
[2020-12-19] MEDS: Protonix 40MG Tablet PO SCH (10:05)
[2020-12-19] MEDS: ZYLOPRIM 100 MG PO SCH (10:05)
[2020-12-19] MEDS: Klonopin 0.5 MG PO SCH (10:05)
[2020-12-19] MEDS: MAG-OX 400 PO SCH (10:05)
[2020-12-19] MEDS: Sodium Chloride 0.9% 1000 ML 1,000 ML IV SCH (10:38)
--- NOTE | 2020-12-19 10:41 | PCM.DS ---
Discharge Summary Date of Admission: 12/17/20 20:46 Admitting Physician: CHANDANA DUNNE Primary Care Provider: CHANDANA DUNNE Allergies Allergies aspirin Adverse Reaction (Verified 10/22/20 20:28) Hospital Summary - Hospital Course Hospital Course: Chief Complaint Diagnosis TIA Allergies Allergy/AdvReac Type Severity Reaction Status Date / Time aspirin AdvReac Verified 10/22/20 20:28 Vital Signs (Last 24 hours) Temp Pulse Resp BP Pulse Ox 12/19/20 08:00 97.4 F 55 L 10 L 115/60 98 12/19/20 07:56 96 12/19/20 04:00 97.2 F 55 L 13 149/66 95 12/18/20 23:54 97.5 F 50 L 16 138/63 96 12/18/20 20:16 96 12/18/20 20:00 96.8 F 58 L 16 164/68 96 12/18/20 15:43 97.9 F 52 L 16 159/70 97 12/18/20 13:00 98.1 F 51 L 16 166/76 99 Current Medications Generic Name Dose Route Start Last Admin Trade Name Freq PRN Reason Stop Dose Admin Acetaminophen 650 mg 12/17/20 20:51 Tylenol 325 Mg PO 01/16/21 20:50 Q4H PRN PRN PAIN AND/OR FEVER Allopurinol 100 mg 12/18/20 10:00 12/19/20 10:05 Zyloprim 100 Mg PO 01/17/21 09:59 100 mg DAILY DRAKE Administration Amlodipine Besylate 5 mg 12/18/20 00:30 12/19/20 10:04 Norvasc 5 Mg PO 01/17/21 00:29 5 mg BID DRAKE Administration Clonazepam 0.5 mg 12/18/20 00:30 12/19/20 10:05 Klonopin 0.5 Mg PO 01/17/21 00:29 0.5 mg BID DRAKE Administration Gabapentin 100 mg 12/18/20 00:30 12/19/20 10:05 Neurontin 100 Mg PO 01/17/21 00:29 100 mg TID DRAKE Administration Glimepiride 1 mg 12/18/20 10:00 12/19/20 10:04 Amaryl 2 Mg PO 01/17/21 09:59 1 mg DAILY DRAKE Administration Hydralazine HCl 10 mg 12/18/20 08:01 Apresoline 20 Mg/Ml Inj IV 01/17/21 08:00 [id number] PRN HYPERTENSION Sodium Chloride 1,000 mls @ 100 mls/hr 12/17/20 20:51 12/19/20 10:38 Sodium Chloride 0.9% 1000 Ml IV 01/16/21 20:50 100 mls/hr .Q10H DRAKE Administration Losartan Potassium 50 mg 12/18/20 22:00 12/18/20 21:34 Cozaar 50 Mg PO 01/17/21 09:59 50 mg HS DRAKE Administration Magnesium Oxide 400 mg 12/18/20 10:00 12/19/20 10:05 Mag-Ox 400 PO 01/17/21 09:59 400 mg DAILY DRAKE Administration Metoprolol Tartrate 100 mg 12/18/20 00:30 12/19/20 10:05 Lopressor 50 Mg PO 01/17/21 00:29 100 mg BID DRAKE Administration Pantoprazole Sodium 40 mg 12/18/20 10:00 12/19/20 10:05 Protonix 40mg Tablet PO 01/17/21 09:59 40 mg DAILY DRAKE Administration Sucralfate 1 g 12/18/20 00:30 12/19/20 07:55 Carafate 1 Gm PO 01/17/21 00:29 1 g ACHS DRAKE Administration Tamsulosin HCl 0.4 mg 12/19/20 22:00 Flomax 0.4 Mg PO 01/17/21 09:59 HS DRAKE Discontinued Medications Generic Name Dose Route Start Last Admin Trade Name Freq PRN Reason Stop Dose Admin Clonidine 0.1 mg 12/18/20 02:00 12/18/20 01:49 Catapres 0.1 Mg PO 12/18/20 02:01 0.1 mg ONCE ONE Administration Sodium Chloride 1,000 mls @ 50 mls/hr 12/17/20 19:30 12/17/20 19:35 Sodium Chloride 0.9% 1000 Ml IV 01/16/21 19:29 50 mls/hr .Q20H DRAKE Administration Sodium Chloride Confirm 12/17/20 19:33 Sodium Chloride 0.9% 1000 Ml Administered 12/17/20 19:34 Dose 1,000 mls @ ud .ROUTE .STK-MED ONE Losartan Potassium 50 mg 12/18/20 10:00 12/19/20 04:41 Cozaar 50 Mg PO 01/17/21 09:59 Not Given DAILY DRAKE Potassium Chloride 20 meq 12/18/20 00:30 12/18/20 09:48 Klor Con 10 Meq PO 01/17/21 00:29 20 meq BID DRAKE Administration Tamsulosin HCl 0.4 mg 12/18/20 10:00 12/18/20 09:49 Flomax 0.4 Mg PO 01/17/21 09:59 0.4 mg DAILY DRAKE Administration Intake & Output (Last 24 hours) 12/16/20 12/17/20 12/18/20 12/19/20 11:59 11:59 11:59 11:59 Intake Total 9 1727 Output Total 1450 2800 Balance 579 -1073 Weight 85 kg Laboratory Results (Last 24 hours) 12/19/20 12/19/20 12/19/20 07:13 05:32 05:32 WBC 4.8 RBC 4.02 L Hgb 10.1 L Hct 33.5 L MCV 83.3 MCH 25.1 L MCHC 30.1 L RDW 17.3 H Plt Count 142 L MPV 11.0 Segmented Neutrophils 56 Lymphocytes (Manual) 31 Monocytes (Manual) 11 Eosinophils (Manual) 2 Platelet Estimate DECREASED RBC Morphology NORMAL Sodium 139 Potassium 3.6 Chloride 108 H Carbon Dioxide 24 Anion Gap 9.9 BUN 13 Creatinine 1.00 Estimated GFR > 60.0 Glucose 95 POC Glucometer 101 Calcium 8.3 L Magnesium 2.0 12/18/20 12/18/20 12/18/20 20:37 16:23 11:23 WBC RBC Hgb Hct MCV MCH MCHC RDW Plt Count MPV Segmented Neutrophils Lymphocytes (Manual) Monocytes (Manual) Eosinophils (Manual) Platelet Estimate RBC Morphology Sodium Potassium Chloride Carbon Dioxide Anion Gap BUN Creatinine Estimated GFR Glucose POC Glucometer 132 H 82 132 H Calcium Magnesium Orders (Last 24 hours) Category Date Time Status CAROTID BILATERAL [US] Routine Exams 12/19/20 Ordered BMP AM.LAB Lab 12/19/20 05:32 Completed CBC W DIFF AM.LAB Lab 12/19/20 05:32 Completed MAGNESIUM AM.LAB Lab 12/19/20 05:32 Completed Manual Differential NC Routine Lab 12/19/20 05:32 Completed POCT GLUCOSE Stat Lab 12/18/20 11:23 Completed POCT GLUCOSE Stat Lab 12/18/20 16:23 Completed POCT GLUCOSE Stat Lab 12/18/20 20:37 Completed POCT GLUCOSE Stat Lab 12/19/20 07:13 Completed Allopurinol 100 mg [Zyloprim 100 mg] Med 12/18/20 10:00 Active 100 mg PO DAILY Glimepiride 2 mg [Amaryl 2 MG] Med 12/18/20 10:00 Active 1 mg PO DAILY Losartan Potassium 50 mg [Cozaar 50 MG] Med 12/18/20 10:00 Discontinued 50 mg PO DAILY Losartan Potassium 50 mg [Cozaar 50 MG] Med 12/18/20 22:00 Active 50 mg PO HS Magnesium Oxide 400 mg [Mag-Ox 400] Med 12/18/20 10:00 Active 400 mg PO DAILY PANTOPRAZOLE 40 mg Tablet [Protonix 40MG Tablet] Med 12/18/20 10:00 Active 40 mg PO DAILY Tamsulosin HCl 0.4 mg [Flomax 0.4 MG] Med 12/18/20 10:00 Discontinued 0.4 mg PO DAILY Tamsulosin HCl 0.4 mg [Flomax 0.4 MG] Med 12/19/20 22:00 Active 0.4 mg PO HS RT Miscellaneous Order ROUTINE RT 12/19/20 08:24 Active - Vitals & Intake/Output Vital Signs: Vital Signs Temperature 97.4 F 12/19/20 08:00 Pulse Rate 55 L 12/19/20 08:00 Respiratory Rate 10 L 12/19/20 08:00 Blood Pressure 115/60 12/19/20 08:00 O2 Sat by Pulse Oximetry 98 12/19/20 08:00 Intake & Output: Intake & Output 12/16/20 12/17/20 12/18/20 12/19/20 11:59 11:59 11:59 11:59 Intake Total 2 1727 Output Total 9828 2800 Balance 579 -1073 Weight 85 kg - Lab Result Diagrams: 12/19/20 05:32 12/19/20 05:32 Lab Results-Last 24 Hrs: Lab Results-Last 24 Hours 12/18/20 12/18/20 12/18/20 Range/Units 11:23 16:23 20:37 WBC (4.0-10.5) K/mm3 RBC (4.1-5.6) M/mm3 Hgb (12.5-18.0) gm/dl Hct (42-50) % MCV (78-100) fl MCH (26-32) pg MCHC (32-36) g/dl RDW (11.5-14.0) % Plt Count (150-450) K/mm3 MPV (7.5-11.0) fl Segmented Neutrophils (36.-66.) % Lymphocytes (Manual) (24-44) % Monocytes (Manual) (0.0-12.0) % Eosinophils (Manual) (0.00-3.0) % Platelet Estimate (NORMAL) RBC Morphology Sodium (137-145) mmol/L Potassium (3.5-5.1) mmol/L Chloride (98-107) mmol/L Carbon Dioxide (22-30) mmol/L Anion Gap (5-15) MEQ/L BUN (9-20) mg/dL Creatinine (0.66-1.25) mg/dL Estimated GFR ML/MIN Glucose (74-106) mg/dL POC Glucometer 132 H 82 132 H (74 to 106) mg/dL Calcium (8.4-10.2) mg/dL Magnesium (1.6-2.3) mg/dL 12/19/20 12/19/20 12/19/20 Range/Units 05:32 05:32 07:13 WBC 4.8 (4.0-10.5) K/mm3 RBC 4.02 L (4.1-5.6) M/mm3 Hgb 10.1 L (12.5-18.0) gm/dl Hct 33.5 L (42-50) % MCV 83.3 (78-100) fl MCH 25.1 L (26-32) pg MCHC 30.1 L (32-36) g/dl RDW 17.3 H (11.5-14.0) % Plt Count 142 L (150-450) K/mm3 MPV 11.0 (7.5-11.0) fl Segmented Neutrophils 56 (36.-66.) % Lymphocytes (Manual) 31 (24-44) % Monocytes (Manual) 11 (0.0-12.0) % Eosinophils (Manual) 2 (0.00-3.0) % Platelet Estimate DECREASED (NORMAL) RBC Morphology NORMAL Sodium 139 (137-145) mmol/L Potassium 3.6 (3.5-5.1) mmol/L Chloride 108 H (98-107) mmol/L Carbon Dioxide 24 (22-30) mmol/L Anion Gap 9.9 (5-15) MEQ/L BUN 13 (9-20) mg/dL Creatinine 1.00 (0.66-1.25) mg/dL Estimated GFR > 60.0 ML/MIN Glucose 95 (74-106) mg/dL POC Glucometer 101 (74 to 106) mg/dL Calcium 8.3 L (8.4-10.2) mg/dL Magnesium 2.0 (1.6-2.3) mg/dL Micro Results-Entire Visit: Accuchecks Date 12/19/20 Date 12/18/20 Date 12/18/20 Date 12/18/20 Date 12/18/20 Date 12/18/20 Time 07:13 Time 16:30 Time 16:30 Time 16:28 Time 11:30 Time 11:36 - Radiology Exams Ordered Rad Exams-Entire Visit: Radiology Procedures Category Date Time Status CAROTID BILATERAL [US] Routine Exams 12/19/20 Ordered HEAD WITHOUT CONTRAST [CT] Stat Exams 12/17/20 19:30 Completed - Procedures and Test Procedures and Tests throughout Hospitalization: Therapy Orders & Screens 12/18/20 05:28 Oxygen Nasal Cannula 2 lpm Comment: Diagnosis: TIA 12/19/20 08:24 RT Miscellaneous Order ROUTINE Comment: Physician Instructions: Reason For Exam: wean off oxygen Diagnosis: TIA Discharge Exam General Appearance: no apparent distress, alert Neurologic Exam: alert, oriented x 3, cooperative, normal mood/affect, nml cerebellar function, sensation nml, No motor deficits Eye Exam: PERRL, EOMI, eyes nml inspection Ears, Nose, Throat Exam: normal ENT inspection, pharynx normal, moist mucous membranes Neck Exam: normal inspection, non-tender, supple, full range of motion Respiratory Exam: normal breath sounds, lungs clear, No respiratory distress Cardiovascular Exam: regular rate/rhythm, normal heart sounds Gastrointestinal/Abdomen Exam: soft, No tenderness, No mass Male Genitalia Exam: deferred Rectal Exam: deferred Back Exam: normal inspection, normal range of motion, No CVA tenderness, No vertebral tenderness Extremity Exam: normal inspection, normal range of motion Skin Exam: normal color, warm, dry Final Diagnosis/Problem List - Final Discharge Diagnosis/Problem (1) CHF (congestive heart failure), NYHA class IV Current Visit: Yes Status: Acute Code(s): I50.9 - HEART FAILURE, UNSPECIFIED (2) HTN (hypertension) Current Visit: Yes Status: Acute Code(s): I10 - ESSENTIAL (PRIMARY) HYPERTENSION (3) TIA (transient ischemic attack) Current Visit: Yes Status: Acute Code(s): G45.9 - TRANSIENT CEREBRAL ISCHEMIC ATTACK, UNSPECIFIED - Discharge Disposition: Home, Self-Care Condition: Fair Prescriptions: No Action Tamsulosin HCl 0.4 mg [Flomax 0.4 MG] 0.4 mg PO DAILY Allopurinol 100 mg [Zyloprim 100 mg] 100 mg PO DAILY Sucralfate 1 gm [Carafate 1 GM] 1 gm PO ACHS Glimepiride 1 mg PO DAILY clonazePAM [Clonazepam] 0.5 mg PO BID Gabapentin 100 mg PO TID Pantoprazole Sodium [Protonix] 40 mg PO DAILY Magnesium Oxide 400 mg [Mag-Ox 400] 400 mg PO DAILY Losartan Potassium [Cozaar] 50 mg PO DAILY Metoprolol Tartrate 100 mg PO BID Amlodipine Besylate 5 mg [Norvasc 5 mg] 5 mg PO BID Follow up with: CHANDANA DUNNE MD [Primary Care Provider] -
[2020-12-19 12:38] VITALS: BP 139/90; PULSE 59; O2SAT 96
--- NOTE | 2020-12-19 13:26 | XRAY ---
Indication: TIA symptoms. Two-dimensional sonogram and color Doppler imaging of the carotid arteries of the neck performed. Comparison: None Examination of the right carotid circulation demonstrates widely patent common carotid, carotid bulb, internal carotid, and external carotid arteries. PSV of the CCA is 86 cm/s. PSV of the ICA is 78 cm/s. ICA/CCA ratio is 0.9. Normal antegrade vertebral artery flow. Examination of the left carotid circulation demonstrates very minimal calcified plaquing in the common carotid and proximal internal carotid arteries. Remaining carotid bulb and external carotid arteries are widely patent. PSV of the CCA is 47 cm/s. PSV of the ICA is 68 cm/s. ICA/CCA ratio is 1.4. Normal antegrade vertebral artery flow. Impression: Minimal plaquing in the left carotid circulation and widely patent right carotid circulation. Velocity measurements and ratios are negative for hemodynamically significant flow-limiting stenosis.
[2020-12-19] MEDS ORDERED: Flomax 0.4 MG PO SCH (22:00)
== END 2020-12-19 13:35 | disposition home or self-care (01) ==
LOC: ED 19:01 → MED SURG 20:46
PROVIDERS: ADMIT General Practice; ATTEND General Practice
DX: I11.0 Hypertensive heart disease with heart failure (principal); I10 Essential (primary) hypertension; G45.9 Transient cerebral ischemic attack, unspecified; Z79.899 Other long term (current) drug therapy; E78.00 Pure hypercholesterolemia, unspecified; E11.9 Type 2 diabetes mellitus without complications; Z85.46 Personal history of malignant neoplasm of prostate; Z20.828 Contact with and (suspected) exposure to other viral communicable diseases
CPT/HCPCS: 0241U; 36000; 36415; 70450; 80048; 80053; 81001; 82947; 83735; 84484; 85025; 85027; 93268; 93880; 94762; 96360; 99285; 99291; G0378; A9270-GY

== ENCOUNTER 2021-01-29 19:03 | Emergency (ER) | payer MEDICARE ==
[2021-01-29 19:32] VITALS: O2SAT 98
--- NOTE | 2021-01-29 19:37 | ERPHSYRPT ---
- History of Present Illness Time Seen by Provider: 01/29/21 19:34 Source: patient Physician History: Mr. Sher Chavez is an 89-year-old white male who presents with a complaint of a headache since 5 PM his daughter is with him and says that he has been acting off of his normal baseline with difficulty walking and some difficulty putting words together. His headache is generalized he has had some nausea and some vomiting he took some Tylenol 650 at home prior to coming to the ER and presentl y has no headache. 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 The family did report as results came to us that they do not believe he actually has had a stroke he only has had TIAs the family was also not aware that his records contain diagnoses of CHF and elevated troponin in the past. The family was certain that he had never had a catheterization. When his troponin was found to be slightly elevated the family said that he had been complaining of some anterior substernal chest pain. Timing/Duration: today Quality: throbbing Head Pain Location: global Severity of Pain-Max: moderate Severity of Pain-Current: moderate Recent Head Trauma: no recent headache/trauma Modifying Factors: Improves With: medication (Relief with Tylenol) Associated Symptoms: nausea/vomiting, trouble walking Previous symptoms: same symptoms as today Allergies/Adverse Reactions: aspirin Adverse Reaction (Verified 01/29/21 19:34) bleeding Home Medications: Allopurinol 100 mg [Zyloprim 100 mg] 100 mg PO DAILY 08/11/19 [History] Glimepiride 1 mg PO DAILY 08/11/19 [History] Sucralfate 1 gm [Carafate 1 GM] 1 gm PO ACHS 08/11/19 [History] Tamsulosin HCl 0.4 mg [Flomax 0.4 MG] 0.4 mg PO DAILY 08/11/19 [History] clonazePAM [Clonazepam] 0.5 mg PO BID 08/19/19 [History] Gabapentin 100 mg PO TID 02/28/20 [History] Magnesium Oxide 400 mg [Mag-Ox 400] 400 mg PO DAILY 04/08/20 [History] Pantoprazole Sodium [Protonix] 40 mg PO DAILY 04/08/20 [History] Losartan Potassium [Cozaar] 50 mg PO DAILY 05/27/20 [History] Metoprolol Tartrate 100 mg PO BID 06/30/20 [History] Amlodipine Besylate 5 mg [Norvasc 5 mg] 5 mg PO BID 10/22/20 [History] Diphenhydramine HCl 25 mg [Benadryl 25 mg Capsule] 25 mg PO HS 01/29/21 [History] Hx Tetanus, Diphtheria Vaccination/Date Given: No Hx Influenza Vaccination/Date Given: No Hx Pneumococcal Vaccination/Date Given: No Travel Risk - Vaccine Status Have you recieved a Covid-19 vaccination: No - Review of Systems Constitutional: No Fever, No Chills Eyes: No Symptoms Ears, Nose, & Throat: No Symptoms Respiratory: No Cough, No Dyspnea Cardiac: No Chest Pain, No Edema, No Syncope Abdominal/Gastrointestinal: No Abdominal Pain, No Nausea, No Vomiting, No Diarrhea Genitourinary Symptoms: No Dysuria Musculoskeletal: No Back Pain, No Neck Pain Skin: No Rash Neurological: Focal Weakness, No Dizziness, No Sensory Changes Psychological: No Symptoms Endocrine: No Symptoms All Other Systems: Reviewed and Negative - Past Medical History Pertinent Past Medical History: Yes Neurological History: TIA ENT History: No Pertinent History Cardiac History: Arrhythmia, High Cholesterol, Hypertension, Myocardial Infarction ([place]) Respiratory History: Bronchitis Endocrine Medical History: Diabetes Type II Musculoskeletal History: Arthritis GI Medical History: GERD History: No Pertinent History Psycho-Social History: Anxiety Male Reproductive Disorders: Prostate Cancer Other Medical History: Gout, 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 HX Prostate CA - Past Surgical History Past Surgical History: Yes Neuro Surgical History: No Pertinent History Cardiac: No Pertinent History Respiratory: No Pertinent History Gastrointestinal: Hemorrhoidectomy Genitourinary: No Pertinent History Musculoskeletal: Orthopedic Surgery Male Surgical History: No Pertinent History Other Surgical History: LT ARM - Social History Smoking Status: Former smoker How long have you smoked: 10 yrs Exposure to second hand smoke: Yes (DAUGHTER) Drug Use: none Patient Lives Alone: No Significant Family History: no pertinent family hx - Nursing Vital Signs Nursing Vital Signs: Initial Vital Signs Temperature 98.2 F 01/29/21 19:10 Pulse Rate 68 01/29/21 19:10 Respiratory Rate 18 01/29/21 19:10 Blood Pressure 160/72 01/29/21 19:10 O2 Sat by Pulse Oximetry 97 01/29/21 19:10 Pain Scale Pain Intensity 0 - Physical Exam General Appearance: no apparent distress Eye Exam: PERRL/EOMI Ears, Nose, Throat Exam: normal ENT inspection, moist mucous membranes Neck Exam: normal inspection, supple, full range of motion, No meningismus Respiratory Exam: normal breath sounds, lungs clear Cardiovascular Exam: regular rate/rhythm, normal heart sounds Gastrointestinal/Abdominal Exam: soft, No tenderness, No distention Back Exam: normal inspection, normal range of motion Mental Status Exam: alert, oriented x 3, cooperative repair manager Exam: normal speech, PERRL, No facial droop Coordination/Gait Exam: normal cerebellar function Motor/Sensory Exam: no motor deficit, no sensory deficit Skin Exam: normal color, warm, dry, No rash SpO2: 98 - Course Nursing assessment & vital signs reviewed: Yes EKG Interpreted by Me: RATE (64), Sinus Rhythm, Non-specific ST Changes, Other (EKG showed prolonged MI interval and prolonged) - Radiology Exams Chest X-ray Interpretation: Interpreted by me (Chest x-ray interpreted by me showed some cardiomegaly elevation of the right hemidiaphragm and a film that was somewhat difficult to read due to rotation.) - CT Exams Head CT Interpretation: Tele-radiologist Report Ordered Tests: Active Orders 24 hr Category Date Time Status Corporate Quality Engineer STAT Care 01/29/21 19:23 Active EKG-ER Only STAT Care 01/29/21 19:23 Active IV Insertion STAT Care 01/29/21 19:23 Active NPO (ED) STAT Care 01/29/21 19:23 Active Pulse Oximetry (ED) STAT Care 01/29/21 19:23 Active CHEST 1 VIEW (PORTABLE) Stat Exams 01/29/21 19:23 Taken HEAD WITHOUT CONTRAST [CT] Stat Exams 01/29/21 19:23 Taken AMYLASE Stat Lab 01/29/21 19:30 Completed CBC W DIFF Stat Lab 01/29/21 19:29 Completed CMP Stat Lab 01/29/21 19:33 Completed LIPASE Stat Lab 01/29/21 19:30 Completed Manual Differential NC Stat Lab 01/29/21 19:29 Completed TROPONIN Q3H Lab 01/29/21 19:29 Completed TROPONIN Q3H Lab 01/29/21 22:30 Ordered TROPONIN Q3H Lab 01/30/21 01:30 Ordered TROPONIN Q3H Lab 01/30/21 04:30 Ordered TROPONIN Q3H Lab 01/30/21 07:30 Ordered UA W/RFX UR CULTURE Stat Lab 01/29/21 20:12 Received Lab/Rad Data: Laboratory Result Diagrams 01/29/21 19:29 01/29/21 19:33 Laboratory Results 01/29/21 01/29/21 01/29/21 Range/Units 19:33 19:30 19:29 WBC (4.0-10.5) K/mm3 RBC (4.1-5.6) M/mm3 Hgb (12.5-18.0) gm/dl Hct (42-50) % MCV (78-100) fl MCH (26-32) pg MCHC (32-36) g/dl RDW (11.5-14.0) % Plt Count (150-450) K/mm3 MPV (7.5-11.0) fl Segmented Neutrophils (36.-66.) % Band Neutrophils (0.0-2.0) % Lymphocytes (Manual) (24-44) % Monocytes (Manual) (0.0-12.0) % Eosinophils (Manual) (0.00-3.0) % Metamyelocytes % Myelocytes % Platelet Estimate (NORMAL) RBC Morphology Sodium 137 (137-145) mmol/L Potassium 4.0 (3.5-5.1) mmol/L Chloride 108 H (98-107) mmol/L Carbon Dioxide 20 L (22-30) mmol/L Anion Gap 13.4 (5-15) MEQ/L BUN 10 (9-20) mg/dL Creatinine 1.14 (0.66-1.25) mg/dL Estimated GFR > 60.0 ML/MIN Glucose 84 (74-106) mg/dL Calcium 8.5 (8.4-10.2) mg/dL Total Bilirubin 0.50 (0.2-1.3) mg/dL AST 24 (17-59) U/L ALT 13 (0-50) U/L Alkaline Phosphatase 114 (38-126) U/L Troponin I 0.164 H* (0.000-0.034) ng/mL Serum Total Protein 6.4 (6.3-8.2) g/dL Albumin 3.6 (3.5-5.0) g/dL Amylase 54 (30-110) U/L Lipase 86 (23-300) U/L 01/29/ Range/Units 19:29 WBC 4.3 (4.0-10.5) K/mm3 RBC 3.87 L (4.1-5.6) M/mm3 Hgb 9.9 L (12.5-18.0) gm/dl Hct 32.3 L (42-50) % MCV 83.5 (78-100) fl MCH 25.6 L (26-32) pg MCHC 30.7 L (32-36) g/dl RDW 17.0 H (11.5-14.0) % Plt Count 120 L (150-450) K/mm3 MPV 10.0 (7.5-11.0) fl Segmented Neutrophils 56 (36.-66.) % Band Neutrophils 4 H (0.0-2.0) % Lymphocytes (Manual) 23 L (24-44) % Monocytes (Manual) 14 H (0.0-12.0) % Eosinophils (Manual) 1 (0.00-3.0) % Metamyelocytes 1 % Myelocytes 1 % Platelet Estimate NORMAL (NORMAL) RBC Morphology NORMAL Sodium (137-145) mmol/L Potassium (3.5-5.1) mmol/L Chloride (98-107) mmol/L Carbon Dioxide (22-30) mmol/L Anion Gap (5-15) MEQ/L BUN (9-20) mg/dL Creatinine (0.66-1.25) mg/dL Estimated GFR ML/MIN Glucose (74-106) mg/dL Calcium (8.4-10.2) mg/dL Total Bilirubin (0.2-1.3) mg/dL AST (17-59) U/L ALT (0-50) U/L Alkaline Phosphatase (38-126) U/L Troponin I (0.000-0.034) ng/mL Serum Total Protein (6.3-8.2) g/dL Albumin (3.5-5.0) g/dL Amylase (30-110) U/L Lipase (23-300) U/L - Progress Progress: unchanged Air Movement: good Blood Culture(s) Obtained: No Antibiotics given: No - Departure Departure Disposition: Transfer (Furred to [facility] since his trimming caser is Dr. Beltran at [facility]. Did by the ER doctor Dr. Copeland) Clinical Impression: Non-STEMI (non-ST elevated myocardial infarction) Condition: Serious Critical Care Time: Yes Critical Care Time(excluding separately billable procedures): Critical 30-74 mins Referrals: CHANDANA DUNNE MD [Primary Care Provider] -
[2021-01-29 19:38] LABS: Hematocrit 32.3 % (42-50); Hemoglobin 9.9 gm/dl (12.5-18.0); Mean Cell Volume 83.5 fl (78-100); Mean Corpuscular Hemoglobin 25.6 pg (26-32); Mean Corpuscular Hgb Concent. 30.7 g/dl (32-36); Platelet Count 120 K/mm3 (150-450); Red Blood Count 3.87 M/mm3 (4.1-5.6); White Blood Count 4.3 K/mm3 (4.0-10.5)
[2021-01-29 19:44] LABS: ALBUMIN 3.6 g/dL (3.5-5.0); ALKALINE PHOSPHATASE 114 U/L (38-126); ANION GAP 13.4 MEQ/L (5-15); BLOOD UREA NITROGEN 10 mg/dL (9-20); CHLORIDE 108 mmol/L (98-107); Calcium 8.5 mg/dL (8.4-10.2); Carbon Dioxide 20 mmol/L (22-30); Creatinine 1 1.14 mg/dL (0.66-1.25); EST GLOMERULAR FILTRATION RATE > 60.0 ML/MIN; Glucose 84 mg/dL (74-106); SGOT/AST 24 U/L (17-59); SGPT/ALT 13 U/L (0-50); SODIUM 137 mmol/L (137-145); Total Protein 6.4 g/dL (6.3-8.2)
[2021-01-29 20:14] VITALS: BP 179/97; PULSE 66
[2021-01-29 20:22] LABS: Appearance CLEAR (CLEAR); Bilirubin NEGATIVE (NEGATIVE); Blood NEGATIVE Ery/ul (0-5); Glucose NEGATIVE (NEGATIVE); Ketones NEGATIVE (NEGATIVE); Leukocyte Esterase NEGATIVE (NEGATIVE); Nitrite NEGATIVE (NEGATIVE); Protein,Urine Dip NEGATIVE (Negative); Specific Gravity 1.004 (1.005-1.025); Urobilinogen NEGATIVE mg/dL (0-1)
[2021-01-29 20:23] LABS: BAND 4 % (0.0-2.0); Eosinophil 1 % (0.00-3.0); Lymphocytes 23 % (24-44); Metamyelocyte 1 %; Monocyte 14 % (0.0-12.0); Myelocyte 1 %; Neutrophils 56 % (36.-66.); Total Cells Counted 100
[2021-01-29 20:24] LABS: Platelet Estimate NORMAL (NORMAL)
[2021-01-29 20:27] LABS: AMYLASE 54 U/L (30-110); LIPASE 86 U/L (23-300)
[2021-01-29 20:30] LABS: Bacteria NONE SEEN /HPF (NEGATIVE)
--- NOTE | 2021-01-30 08:52 | XRAY ---
Indication: Weakness, headache, nausea, and vomiting. Comparison: June 29, 2020. Portable chest less inflated without focal infiltrate, consolidation, or large effusion. Heart borderline enlarged. Bony thorax intact again with osteopenia and degenerative changes. Impression: Nonacute chest with chronic features.
--- NOTE | 2021-01-30 08:52 | XRAY ---
Indication: Headache, nausea, vomiting, and weakness. Multiple contiguous axial images obtained through the head without contrast. Comparison: December 17, 2020. Stable age-appropriate global atrophy, mild periventricular degenerative micro-ischemia, and small right frontal calcified meningioma. No acute intracranial hemorrhage, abnormal extra-axial fluid collection, or mass effect. Fourth ventricle is midline without hydrocephalus. Bony calvarium intact. Visualized paranasal sinuses and mastoid air cells are clear. Impression: Continued nonacute senile brain with incidental small right frontal calcified meningioma. Comment: Preliminary interpretation was made by [facility]. No critical discrepancy.
== END 2021-01-29 20:56 | disposition short-term general hospital (02) ==
LOC: ED 19:03
DX: I21.4 Non-ST elevation (NSTEMI) myocardial infarction (principal); R51.9 Headache, unspecified; R11.2 Nausea with vomiting, unspecified; R26.2 Difficulty in walking, not elsewhere classified; Z79.899 Other long term (current) drug therapy; E78.00 Pure hypercholesterolemia, unspecified; I10 Essential (primary) hypertension; I25.2 Old myocardial infarction; E11.9 Type 2 diabetes mellitus without complications
CPT/HCPCS: 36000; 36415; 70450; 71045; 80053; 81001; 82150; 83690; 84484; 85025; 93005; 93041; 94760; 99285; 99291

== ENCOUNTER 2021-02-05 18:35 | Emergency (ER) | payer MEDICARE ==
--- NOTE | 2021-02-05 20:12 | ERPHSYRPT ---
- History of Present Illness Time Seen by Provider: 02/05/21 20:08 Source: patient, family Exam Limitations: no limitations Physician History: pt has hx hiatal hernia with vomiting but also recurring headaches and thinks he has had a number of prior TIAs and concerned this time also- was just at [facility] for elevated Trop last week and Dcd. No CP or SOBreath tonight, or specific abd pain. no neuro deficits to indicate TIA at thistime but has TORRES and so we will check th e CT. ABd is nontender. Timing/Duration: today Severity: moderate Associated Symptoms: nausea, vomiting, headaches Allergies/Adverse Reactions: aspirin Adverse Reaction (Verified 02/05/21 19:36) bleeding Home Medications: Allopurinol 100 mg [Zyloprim 100 mg] 100 mg PO DAILY 08/11/19 [History] Glimepiride 1 mg PO DAILY 08/11/19 [History] Sucralfate 1 gm [Carafate 1 GM] 1 gm PO ACHS 08/11/19 [History] Tamsulosin HCl 0.4 mg [Flomax 0.4 MG] 0.4 mg PO DAILY 08/11/19 [History] clonazePAM [Clonazepam] 0.5 mg PO BID 08/19/19 [History] Gabapentin 100 mg PO TID 02/28/20 [History] Magnesium Oxide 400 mg [Mag-Ox 400] 400 mg PO DAILY 04/08/20 [History] Pantoprazole Sodium [Protonix] 40 mg PO DAILY 04/08/20 [History] Losartan Potassium [Cozaar] 50 mg PO DAILY 05/27/20 [History] Metoprolol Tartrate 100 mg PO BID 06/30/20 [History] Amlodipine Besylate 5 mg [Norvasc 5 mg] 5 mg PO BID 10/22/20 [History] Diphenhydramine HCl 25 mg [Benadryl 25 mg Capsule] 25 mg PO HS 01/29/21 [History] Calcium Carbonate 1,000 mg PO Q6H PRN 02/05/21 [History] Levothyroxine Sodium [Levothyroxine] 50 mcg PO DAILY 02/05/21 [History] Hx Tetanus, Diphtheria Vaccination/Date Given: No Hx Influenza Vaccination/Date Given: No Hx Pneumococcal Vaccination/Date Given: No Travel Risk - Vaccine Status Have you recieved a Covid-19 vaccination: No - Review of Systems Constitutional: No Fever, No Chills Eyes: No Symptoms Ears, Nose, & Throat: No Symptoms Respiratory: No Cough, No Dyspnea Cardiac: No Chest Pain, No Edema, No Syncope Abdominal/Gastrointestinal: Nausea, Vomiting, No Abdominal Pain, No Diarrhea Genitourinary Symptoms: No Dysuria Musculoskeletal: No Back Pain, No Neck Pain Skin: No Rash Neurological: Headache, No Dizziness, No Focal Weakness, No Sensory Changes Psychological: No Symptoms Endocrine: No Symptoms All Other Systems: Reviewed and Negative - Past Medical History Pertinent Past Medical History: Yes Neurological History: TIA ENT History: No Pertinent History Cardiac History: Arrhythmia, High Cholesterol, Hypertension, Myocardial Infarction ([place]) Respiratory History: Bronchitis Endocrine Medical History: Diabetes Type II Musculoskeletal History: Arthritis GI Medical History: GERD History: No Pertinent History Psycho-Social History: Anxiety Male Reproductive Disorders: Prostate Cancer Other Medical History: Gout, 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 HX Prostate CA - Past Surgical History Past Surgical History: Yes Neuro Surgical History: No Pertinent History Cardiac: No Pertinent History Respiratory: No Pertinent History Gastrointestinal: Hemorrhoidectomy Genitourinary: No Pertinent History Musculoskeletal: Orthopedic Surgery Male Surgical History: No Pertinent History Other Surgical History: LT ARM - Social History Smoking Status: Former smoker How long have you smoked: 10 yrs Exposure to second hand smoke: Yes (DAUGHTER) Drug Use: none Patient Lives Alone: No Significant Family History: no pertinent family hx - Nursing Vital Signs Nursing Vital Signs: Initial Vital Signs Temperature 98.6 F 02/05/21 19:42 Pulse Rate 64 02/05/21 19:42 Respiratory Rate 22 02/05/21 19:42 Blood Pressure 142/67 02/05/21 19:42 O2 Sat by Pulse Oximetry 95 02/05/21 19:42 Pain Scale Pain Intensity 2 - Physical Exam General Appearance: no apparent distress, alert Eye Exam: PERRL/EOMI, eyes nml inspection Ears, Nose, Throat Exam: normal ENT inspection, TMs normal, pharynx normal, moist mucous membranes Neck Exam: normal inspection, non-tender, supple, full range of motion Respiratory Exam: normal breath sounds, lungs clear, No respiratory distress Cardiovascular Exam: regular rate/rhythm, normal heart sounds, normal peripheral pulses Gastrointestinal/Abdomen Exam: soft, normal bowel sounds, No tenderness, No mass Back Exam: normal inspection, normal range of motion, No CVA tenderness, No vertebral tenderness Extremity Exam: normal inspection, normal range of motion, pelvis stable Neurologic Exam: alert, oriented x 3, cooperative, normal mood/affect, nml cerebellar function, nml station & gait, sensation nml, No motor deficits Skin Exam: normal color, warm, dry, No rash Lymphatic Exam: No adenopathy - Course Nursing assessment & vital signs reviewed: Yes EKG Interpreted by Me: Sinus Rhythm, Non-specific ST Changes, Other (PVCs ) Ordered Tests: Active Orders 24 hr Category Date Time Status EKG-ER Only STAT Care 02/05/21 20:19 Active IV Insertion STAT Care 02/05/21 20:19 Active PO Fluid Challenge STAT Care 02/05/21 22:34 Active HEAD WITHOUT CONTRAST [CT] Stat Exams 02/05/21 20:18 Taken AMYLASE Stat Lab 02/05/21 20:26 Completed CBC W DIFF Stat Lab 02/05/21 20:26 Completed CMP Stat Lab 02/05/21 20:26 Completed LIPASE Stat Lab 02/05/21 20:26 Completed Lactic Acid Stat Lab 02/05/21 20:23 Completed Manual Differential NC Stat Lab 02/05/21 20:26 Completed TROPONIN Q3H Lab 02/05/21 20:26 Completed TROPONIN Q3H Lab 02/05/21 23:30 Ordered TROPONIN Q3H Lab 02/06/21 02:30 Ordered TROPONIN Q3H Lab 02/06/21 05:30 Ordered TROPONIN Q3H Lab 02/06/21 08:30 Ordered UA W/RFX UR CULTURE Stat Lab 02/05/21 20:39 Completed Medication Summary Generic Name Dose Route Start Last Admin Trade Name Freq PRN Reason Stop Dose Admin Sodium Chloride 1,000 mls @ 100 mls/hr 02/05/21 20:30 02/05/21 20:47 Sodium Chloride 0.9% 1000 Ml IV 03/07/21 20:29 100 mls/hr .Q10H DRAKE Administration Discontinued Medications Generic Name Dose Route Start Last Admin Trade Name Freq PRN Reason Stop Dose Admin Diphenhydramine HCl 12 mg 02/05/21 20:21 02/05/21 20:56 Benadryl 50 Mg/Ml IV 02/05/21 20:22 12 mg STAT ONE Administration Diphenhydramine HCl Confirm 02/05/21 20:43 Benadryl 50 Mg/Ml Administered 02/05/21 20:44 Dose 50 mg .ROUTE .STK-MED ONE Famotidine 20 mg 02/05/21 20:19 02/05/21 20:53 Pepcid 20 Mg Vial IV 02/05/21 20:20 20 mg STAT ONE Administration Famotidine Confirm 02/05/21 20:44 Pepcid 20 Mg Vial Administered 02/05/21 20:45 Dose 20 mg IV .STK-MED ONE Metoclopramide HCl 10 mg 02/05/21 20:19 02/05/21 20:50 Reglan 10 Mg/2 Ml IV 02/05/21 20:20 10 mg STAT ONE Administration Metoclopramide HCl Confirm 02/05/21 20:44 Reglan 10 Mg/2 Ml Administered 02/05/21 20:45 Dose 10 mg .ROUTE .STK-MED ONE Ondansetron HCl 4 mg 02/05/21 20:19 02/05/21 20:48 Zofran 4 Mg/2 Ml Vial IV 02/05/21 20:20 4 mg STAT ONE Administration Ondansetron HCl Confirm 02/05/21 20:43 Zofran 4 Mg/2 Ml Vial Administered 02/05/21 20:44 Dose 4 mg .ROUTE .STK-MED ONE Pantoprazole Sodium 40 mg 02/05/21 20:19 02/05/21 20:54 Protonix 40 Mg Iv IV 02/05/21 20:20 40 mg STAT ONE Administration Pantoprazole Sodium Confirm 02/05/21 20:44 Protonix 40 Mg Iv Administered 02/05/21 20:45 Dose 40 mg IV .STK-MED ONE Lab/Rad Data: Laboratory Result Diagrams 02/05/21 20:26 02/05/21 20:26 Laboratory Results 02/05/21 02/05/21 02/05/21 Range/Units 20:39 20:26 20:26 WBC (4.0-10.5) K/mm3 RBC (4.1-5.6) M/mm3 Hgb (12.5-18.0) gm/dl Hct (42-50) % MCV (78-100) fl MCH (26-32) pg MCHC (32-36) g/dl RDW (11.5-14.0) % Plt Count (150-450) K/mm3 MPV (7.5-11.0) fl Sodium 135 L (137-145) mmol/L Potassium 3.6 (3.5-5.1) mmol/L Chloride 101 (98-107) mmol/L Carbon Dioxide 21 L (22-30) mmol/L Anion Gap 16.6 H (5-15) MEQ/L BUN 21 H (9-20) mg/dL Creatinine 1.28 H (0.66-1.25) mg/dL Estimated GFR 56.4 ML/MIN Glucose 116 H (74-106) mg/dL Lactic Acid (0.4-2.0) Calcium 8.3 L (8.4-10.2) mg/dL Total Bilirubin 0.60 (0.2-1.3) mg/dL AST 22 (17-59) U/L ALT 16 (0-50) U/L Alkaline Phosphatase 107 (38-126) U/L Troponin I 0.033 (0.000-0.034) ng/mL Serum Total Protein 6.9 (6.3-8.2) g/dL Albumin 3.8 (3.5-5.0) g/dL Amylase 58 (30-110) U/L Lipase 74 (23-300) U/L Urine Color YELLOW (YELLOW) Urine Appearance CLEAR (CLEAR) Urine pH 5.0 (5-6) Ur Specific [place] 1.006 (1.005-1.025) Urine Protein NEGATIVE (Negative) Urine Ketones NEGATIVE (NEGATIVE) Urine Blood NEGATIVE (0-5) Srinivasan/ul Urine Nitrite NEGATIVE (NEGATIVE) Urine Bilirubin NEGATIVE (NEGATIVE) Urine Urobilinogen NEGATIVE (0-1) mg/dL Ur Leukocyte Esterase NEGATIVE (NEGATIVE) Urine WBC (Auto) NONE (0-5) /HPF Urine RBC (Auto) NONE (0-2) /HPF U Epithel Cells (Auto) NONE (FEW) /HPF Urine Bacteria (Auto) NONE (NEGATIVE) /HPF Urine Culture Reflexed NO (NO) Urine Glucose NEGATIVE (NEGATIVE) mg/dL 02/05/21 02/05/21 Range/Units 20:26 20:23 WBC 3.5 L (4.0-10.5) K/mm3 RBC 4.06 L (4.1-5.6) M/mm3 Hgb 10.5 L (12.5-18.0) gm/dl Hct 33.7 L (42-50) % MCV 83.0 (78-100) fl MCH 25.9 L (26-32) pg MCHC 31.2 L (32-36) g/dl RDW 17.4 H (11.5-14.0) % Plt Count 124 L (150-450) K/mm3 MPV 11.2 H (7.5-11.0) fl Sodium (137-145) mmol/L Potassium (3.5-5.1) mmol/L Chloride (98-107) mmol/L Carbon Dioxide (22-30) mmol/L Anion Gap (5-15) MEQ/L BUN (9-20) mg/dL Creatinine (0.66-1.25) mg/dL Estimated GFR ML/MIN Glucose (74-106) mg/dL Lactic Acid 1.4 (0.4-2.0) Calcium (8.4-10.2) mg/dL Total Bilirubin (0.2-1.3) mg/dL AST (17-59) U/L ALT (0-50) U/L Alkaline Phosphatase (38-126) U/L Troponin I (0.000-0.034) ng/mL Serum Total Protein (6.3-8.2) g/dL Albumin (3.5-5.0) g/dL Amylase (30-110) U/L Lipase (23-300) U/L Urine Color (YELLOW) Urine Appearance (CLEAR) Urine pH (5-6) Ur Specific [place] (1.005-1.025) Urine Protein (Negative) Urine Ketones (NEGATIVE) Urine Blood (0-5) Srinivasan/ul Urine Nitrite (NEGATIVE) Urine Bilirubin (NEGATIVE) Urine Urobilinogen (0-1) mg/dL Ur Leukocyte Esterase (NEGATIVE) Urine WBC (Auto) (0-5) /HPF Urine RBC (Auto) (0-2) /HPF U Epithel Cells (Auto) (FEW) /HPF Urine Bacteria (Auto) (NEGATIVE) /HPF Urine Culture Reflexed (NO) Urine Glucose (NEGATIVE) mg/dL - Progress Progress: improved, re-examined Progress Note: 02/05/21 22:34 pt feels better now and would like to try fluids now. will PO challenge. discussed trop level in absence of any CP, and that it is on an expected trejectory after his recent admission for the elevation which was much higher. He and are advised that we cannot exclude an evolving cardiac or cerebrovascular condition without furhter testing , but wish to pursue this as outpt without furhter w/u or admission at this time and have the capacity to make this choice. they will return if symptoms return or other concenrs meantime , and will keep the plan for f/u with referrals and PCP this week to continue initiated w/us.. 02/05/21 23:33 raphael po in er well. offered admission and further w/u and obs , but pt and feel they would prefer to continue the workup outpt and will return if any problems meantime and are comfortable with the risk of a complication and that we cannot exclude this based on the current workup and things may be evolving as above undetected and we cannot be for certain if the trop is a new event either. Counseled pt/family regarding: lab results, diagnosis, need for follow-up, rad results - Departure Departure Disposition: Home Clinical Impression: vomiting-headache resolved;trop trend dn Condition: Good Critical Care Time: No Referrals: CHANDANA DUNNE MD [Primary Care Provider] - Additional Instructions: keep plans to followup with your DrClaudia for further workup this week , and return meantime if furhter symptoms or concerns.
[2021-02-05] MEDS ORDERED: Zofran 4 MG/2 ML VIAL IV ONE (20:19)
[2021-02-05] MEDS ORDERED: Reglan 10 MG/2 ML IV ONE (20:19)
[2021-02-05] MEDS ORDERED: Pepcid 20 MG VIAL IV ONE ×2 (20:19→20:44)
[2021-02-05] MEDS ORDERED: PROTONIX 40 MG IV IV ONE ×2 (20:19→20:44)
[2021-02-05] MEDS ORDERED: BENADRYL 50 MG/ML IV ONE (20:21)
[2021-02-05] MEDS ORDERED: Sodium Chloride 0.9% 1000 ML 1,000 ML IV SCH (20:30)
[2021-02-05 20:32] LABS: Hematocrit 33.7 % (42-50); Hemoglobin 10.5 gm/dl (12.5-18.0); Mean Corpuscular Hemoglobin 25.9 pg (26-32); Mean Corpuscular Hgb Concent. 31.2 g/dl (32-36); Mean Platelet Volume 11.2 fl (7.5-11.0); Platelet Count 124 K/mm3 (150-450); Red Blood Count 4.06 M/mm3 (4.1-5.6); Red Cell Distribution Width 17.4 % (11.5-14.0); White Blood Count 3.5 K/mm3 (4.0-10.5)
[2021-02-05 20:36] LABS: ALBUMIN 3.8 g/dL (3.5-5.0); ANION GAP 16.6 MEQ/L (5-15); BILIRUBIN,TOTAL 0.6 mg/dL (0.2-1.3); Calcium 8.3 mg/dL (8.4-10.2); Creatinine 1 1.28 mg/dL (0.66-1.25); EST GLOMERULAR FILTRATION RATE 56.4 ML/MIN; Potassium 3.6 mmol/L (3.5-5.1); Total Protein 6.9 g/dL (6.3-8.2)
[2021-02-05 20:42] LABS: Appearance CLEAR (CLEAR); Bilirubin NEGATIVE (NEGATIVE); Blood NEGATIVE Ery/ul (0-5); Glucose NEGATIVE (NEGATIVE); Ketones NEGATIVE (NEGATIVE); Leukocyte Esterase NEGATIVE (NEGATIVE); Nitrite NEGATIVE (NEGATIVE); Protein,Urine Dip NEGATIVE (Negative); Specific Gravity 1.006 (1.005-1.025); Urobilinogen NEGATIVE mg/dL (0-1)
[2021-02-05] MEDS ORDERED: Zofran 4 MG/2 ML VIAL ONE (20:43)
[2021-02-05] MEDS ORDERED: BENADRYL 50 MG/ML ONE (20:43)
[2021-02-05] MEDS ORDERED: Sodium Chloride 0.9% 1000 ML 1,000 ML ONE (20:44)
[2021-02-05] MEDS ORDERED: Reglan 10 MG/2 ML ONE (20:44)
[2021-02-05 23:49] VITALS: BP 165/74; PULSE 65; O2SAT 98
[2021-02-06 01:18] LABS: Eosinophil 2 % (0.00-3.0); Lymphocytes 38 % (24-44); Monocyte 21 % (0.0-12.0); Neutrophils 39 % (36.-66.); Platelet Estimate DECREASED (NORMAL); Total Cells Counted 100
[2021-02-06 01:19] LABS: ANISOCYTOSIS 2+
--- NOTE | 2021-02-06 08:47 | XRAY ---
Indication: Severe headache. Nausea and vomiting. Multiple contiguous axial images obtained through the head without contrast. Comparison: January 29, 2021. Stable age-appropriate global atrophy, mild periventricular degenerative micro-ischemia, and small right frontal calcified meningioma. No acute intracranial hemorrhage, abnormal extra-axial fluid collection, or mass effect. Fourth ventricle is midline without hydrocephalus. Bony calvarium intact. Visualized paranasal sinuses and mastoid air cells are clear. Impression: Continued nonacute senile brain with incidental small right frontal calcified meningioma. Comment: Preliminary interpretation was made by [facility]. No critical discrepancy.
== END 2021-02-06 00:05 | disposition home or self-care (01) ==
LOC: ED 18:35
DX: R51.9 Headache, unspecified (principal); R11.2 Nausea with vomiting, unspecified; Z79.899 Other long term (current) drug therapy; E11.9 Type 2 diabetes mellitus without complications; I10 Essential (primary) hypertension; E78.00 Pure hypercholesterolemia, unspecified
CPT/HCPCS: 36000; 36415; 70450; 80053; 81001; 82150; 83605; 83690; 84484; 85025; 93005; 96374; 96375; 99284; J1200; J2405

== ENCOUNTER 2021-02-13 13:06 | Observation (INO) | payer MEDICARE ==
[2021-02-13] MEDS ORDERED: TYLENOL 325 MG PO STA (13:25)
[2021-02-13] MEDS ORDERED: Sodium Chloride 0.9% 1000 ML 1,000 ML IV STA (13:25)
[2021-02-13] MEDS ORDERED: Sodium Chloride 0.9% 1000 ML 1,000 ML ONE ×2 (13:32→18:21)
[2021-02-13] MEDS ORDERED: TYLENOL 325 MG ONE (13:34)
[2021-02-13] MEDS ORDERED: Zosyn 3.375 GM Vial 3.375 GM in Sodium Chloride 100ML MINI-BAG PLUS 100 ML IV ONE (13:34)
[2021-02-13] MEDS ORDERED: VANCOMYCIN 1 GRAM/200 ML BAG 1 GM/200 ML PIGGYBACK IV ONE ×2 (13:34→14:15)
[2021-02-13 13:49] LABS: Hematocrit 36.3 % (42-50); Hemoglobin 11.5 gm/dl (12.5-18.0); Mean Cell Volume 81.4 fl (78-100); Mean Corpuscular Hemoglobin 25.8 pg (26-32); Mean Corpuscular Hgb Concent. 31.7 g/dl (32-36); Mean Platelet Volume 10.4 fl (7.5-11.0); Platelet Count 158 K/mm3 (150-450); Red Blood Count 4.46 M/mm3 (4.1-5.6); Red Cell Distribution Width 16.7 % (11.5-14.0); White Blood Count 17.8 K/mm3 (4.0-10.5)
[2021-02-13 14:02] LABS: ALBUMIN 3.8 g/dL (3.5-5.0); ANION GAP 16.4 MEQ/L (5-15); BILIRUBIN,TOTAL 0.5 mg/dL (0.2-1.3); Calcium 8.8 mg/dL (8.4-10.2); Creatinine 1 1.31 mg/dL (0.66-1.25); EST GLOMERULAR FILTRATION RATE 54.9 ML/MIN; Potassium 3.3 mmol/L (3.5-5.1); Total Protein 6.8 g/dL (6.3-8.2)
[2021-02-13 14:08] LABS: INFLUENZA A NEGATIVE (NEGATIVE); INFLUENZA B NEGATIVE (NEGATIVE)
[2021-02-13 14:14] LABS: BAND 11 % (0.0-2.0); Lymphocytes 8 % (24-44); Monocyte 5 % (0.0-12.0); Neutrophils 76 % (36.-66.); Total Cells Counted 100
[2021-02-13] MEDS ORDERED: Zosyn 3.375 GM Vial IV ONE (14:14)
[2021-02-13] MEDS ORDERED: Sodium Chloride 100ML MINI-BAG PLUS 100 ML IV ONE (14:14)
[2021-02-13 14:15] LABS: Platelet Estimate NORMAL (NORMAL)
--- NOTE | 2021-02-13 14:50 | XRAY ---
Exam: AP upright portable chest film from 02/13/2021. Comparison AP portable chest film from 01/29/2021. Indication: Fever, pneumonia, chest pain. Findings: The transverse heart size is normal. Mixed interstitial/airspace infiltrate is seen within the lower half of the left lung and within the right infrahilar projection. This is consistent with bilateral pneumonia. The remainder of the lung verdugo appears clear, except for perhaps a few scattered very small calcified granulomas. No pneumothorax or pleural effusion is seen. Moderate osteophyte formation is seen within the visualized thoracic spine. The patient's chin partially obscures the thoracic inlet and superior medial margin of the right lung apex. Impression: 1. Findings consistent with bilateral lower lung field pneumonia, more extensive on the left than right.
--- NOTE | 2021-02-13 14:55 | ERPHSYRPT ---
- History of Present Illness Time Seen by Provider: 02/13/21 13:30 Source: patient Exam Limitations: no limitations Patient Subjective Stated Complaint: pt daughter reports approx 0900 today patient needed assistance getting up from bed which is very abnormal, pt is typically ambulatory with 2 canes by himself. pt daughter states that pt was unable to get up and did not want to eat breakfast this morning. pt daughter reports he is very weak, has been coughing and had a runny nose, pt does live with this daughter and she monitors his care closely. pt was admitted 02/05 for nausea/vomiting/hiatal hernia. Triage Nursing Assessment: pt is aox2, pt is hot to touch, febrile, resps easy and non labored, lung sounds are diminshed bilat, cap refill < 3 seconds, radial pulses strong and equal, pt skin pale, moist, intact. hernia noticed to mid ab domen. Physician History: Patient is a 89-year-old male presents to our ED for evaluation of generalized weakness. Patient is here with his daughter. Patient lives with his daughter. Daughter states that patient awoke this morning at 9 AM. He is normally independent and eats breakfast without any issues. However this morning patient was very weak. Patient required assistance getting out of bed. Patient also required assistance ambulating. Daughter reports that patient is normally ambulatory. He is usually independent with bilateral canes. Patient did not want breakfast this morning. He states he feels very weak. In triage patient was observed to be febrile. Report patient was hospitalized on February 05 for nausea vomiting and hiatal hernia. Timing/Duration: today Severity: moderate Modifying Factors: Improves With: nothing Associated Symptoms: other (Patient has been coughing and experiencing a runny nose.) Allergies/Adverse Reactions: aspirin Adverse Reaction (Verified 02/13/21 13:46) bleeding Home Medications: Allopurinol 100 mg [Zyloprim 100 mg] 100 mg PO DAILY 08/11/19 [History] Glimepiride 1 mg PO DAILY 08/11/19 [History] Sucralfate 1 gm [Carafate 1 GM] 1 gm PO ACHS 08/11/19 [History] Tamsulosin HCl 0.4 mg [Flomax 0.4 MG] 0.4 mg PO DAILY 01/07/20 [History] clonazePAM [Clonazepam] 0.5 mg PO BID 08/19/19 [History] Gabapentin 100 mg PO TID 02/28/20 [History] Magnesium Oxide 400 mg [Mag-Ox 400] 400 mg PO DAILY 04/08/20 [History] Pantoprazole Sodium [Protonix] 40 mg PO DAILY 04/08/20 [History] Losartan Potassium [Cozaar] 50 mg PO DAILY 05/27/20 [History] Amlodipine Besylate 5 mg [Norvasc 5 mg] 5 mg PO BID 10/22/20 [History] Diphenhydramine HCl 25 mg [Benadryl 25 mg Capsule] 25 mg PO HS PRN 01/29/21 [History] Levothyroxine Sodium [Levothyroxine] 50 mcg PO DAILY 02/05/21 [History] Hx Tetanus, Diphtheria Vaccination/Date Given: Yes Hx Influenza Vaccination/Date Given: Yes Hx Pneumococcal Vaccination/Date Given: Yes Immunizations Up to Date: Yes Travel Risk - International Travel Have you traveled outside of the country in past 3 weeks: No - Coronavirus Screening Are you exhibiting any of the following symptoms?: Yes Symptoms: Fever Close contact with a COVID-19 positive Pt in past 14-21 Days: No - Vaccine Status Have you recieved a Covid-19 vaccination: No - Review of Systems Constitutional: No Symptoms, No Fever, No Chills Eyes: No Symptoms Ears, Nose, & Throat: No Symptoms Respiratory: No Symptoms, No Cough, No Dyspnea Cardiac: No Symptoms, No Chest Pain, No Edema, No Syncope Abdominal/Gastrointestinal: No Symptoms, No Abdominal Pain, No Nausea, No Vomiting, No Diarrhea Genitourinary Symptoms: No Symptoms, No Dysuria Musculoskeletal: No Symptoms, No Back Pain, No Neck Pain Skin: No Symptoms, No Rash Neurological: No Symptoms, No Dizziness, No Focal Weakness, No Sensory Changes Psychological: No Symptoms Endocrine: No Symptoms Hematologic/Lymphatic: No Symptoms Immunological/Allergic: No Symptoms All Other Systems: Reviewed and Negative - Past Medical History Pertinent Past Medical History: Yes Neurological History: TIA ENT History: No Pertinent History Cardiac History: Arrhythmia, High Cholesterol, Hypertension, Myocardial Infarction ([place]) Respiratory History: Bronchitis Endocrine Medical History: Diabetes Type II Musculoskeletal History: Arthritis GI Medical History: GERD History: No Pertinent History Psycho-Social History: Anxiety Male Reproductive Disorders: Prostate Cancer Other Medical History: Gout, 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 HX Prostate CA - Past Surgical History Past Surgical History: Yes Neuro Surgical History: No Pertinent History Cardiac: No Pertinent History Respiratory: No Pertinent History Gastrointestinal: Hemorrhoidectomy Genitourinary: No Pertinent History Musculoskeletal: Orthopedic Surgery Male Surgical History: No Pertinent History Other Surgical History: LT ARM - Social History Smoking Status: Former smoker How long have you smoked: 10 yrs Exposure to second hand smoke: Yes (DAUGHTER) Drug Use: none Patient Lives Alone: No Significant Family History: no pertinent family hx - Nursing Vital Signs Nursing Vital Signs: Initial Vital Signs Temperature 102.7 F 02/13/21 13:12 Pulse Rate 86 02/13/21 13:12 Respiratory Rate 24 02/13/21 13:12 Blood Pressure 125/54 02/13/21 13:12 O2 Sat by Pulse Oximetry 88 L 02/13/21 13:12 Pain Scale Pain Intensity 0 - Physical Exam General Appearance: no apparent distress, alert, other (It is warm to touch.) Eye Exam: PERRL/EOMI, eyes nml inspection Ears, Nose, Throat Exam: normal ENT inspection, TMs normal, pharynx normal, moist mucous membranes Neck Exam: normal inspection, non-tender, supple, full range of motion Respiratory Exam: normal breath sounds, lungs clear, No respiratory distress Cardiovascular Exam: regular rate/rhythm, normal heart sounds, normal peripheral pulses Gastrointestinal/Abdomen Exam: soft, normal bowel sounds, No tenderness, No mass Back Exam: normal inspection, normal range of motion, No CVA tenderness, No vertebral tenderness Extremity Exam: normal inspection, normal range of motion, pelvis stable Neurologic Exam: alert, oriented x 3, cooperative, normal mood/affect, nml cerebellar function, nml station & gait, sensation nml, No motor deficits Skin Exam: normal color, warm, dry, No rash Lymphatic Exam: No adenopathy SpO2 Interpretation: normal, airway management int. SpO2: 95 O2 Delivery: Room Air - Course Nursing assessment & vital signs reviewed: Yes Ordered Tests: Active Orders 24 hr Category Date Time Status Personal Banking Officer STAT Care 02/13/21 13:30 Active EKG-ER Only STAT Care 02/13/21 13:25 Active IV Insertion STAT Care 02/13/21 13:25 Active Pulse Oximetry (ED) STAT Care 02/13/21 13:25 Active CHEST 1 VIEW (PORTABLE) Stat Exams 02/13/21 13:30 Completed BLOOD CULTURE Stat Lab 02/13/21 14:15 Ordered CBC W DIFF Stat Lab 02/13/21 13:18 Completed CMP Stat Lab 02/13/21 13:18 Completed INFLUENZA A+B LAURA Stat Lab 02/13/21 13:15 Completed Lactic Acid Stat Lab 02/13/21 13:40 Completed Lactic Acid Stat Lab 02/13/21 15:42 Completed Manual Differential NC Stat Lab 02/13/21 13:18 Completed POCT GLUCOSE Stat Lab 02/13/21 13:11 Completed UA W/RFX UR CULTURE Stat Lab 02/13/21 15:56 Completed Transfer Order Routine Transfer 02/13/21 Ordered Medication Summary Generic Name Dose Route Start Last Admin Trade Name Freq PRN Reason Stop Dose Admin Potassium Chloride 20 meq in 100 mls @ 50 mls/hr 02/13/21 15:15 02/13/21 16:59 Potassium Chloride 20 Meq In Water 100ml IV 02/13/21 19:14 50 mls/hr Q2H DRAKE Administration Discontinued Medications Generic Name Dose Route Start Last Admin Trade Name Freq PRN Reason Stop Dose Admin Acetaminophen 975 mg 02/13/21 13:25 02/13/21 13:35 Tylenol 325 Mg PO 02/13/21 13:26 975 mg STAT STA Administration Acetaminophen Confirm 02/13/21 13:34 Tylenol 325 Mg Administered 02/13/21 13:35 Dose 975 mg .ROUTE .STK-MED ONE Sodium Chloride 1,000 mls @ 999 mls/hr 02/13/21 13:25 02/13/21 14:51 Sodium Chloride 0.9% 1000 Ml IV 02/13/21 14:25 Infused .Q1H1M STA Infusion Piperacillin Sod/Tazobactam 100 mls @ 200 mls/hr 02/13/21 13:34 02/13/21 14:16 Sod 3.375 gm/ Sodium Chloride IV 02/13/21 14:03 200 mls/hr STAT ONE Administration Sodium Chloride Confirm 02/13/21 13:32 Sodium Chloride 0.9% 1000 Ml Administered 02/13/21 13:33 Dose 1,000 mls @ ud .ROUTE .STK-MED ONE Vancomycin HCl 1 gm in 200 mls @ 125 mls/hr 02/13/21 13:34 02/13/21 14:50 Vancomycin 1 Gram/200 Ml Bag IV 02/13/21 15:09 125 mls/hr STAT ONE 125 mls/hr Administration Sodium Chloride Confirm 02/13/21 14:14 Sodium Chloride 100ml Mini-Bag Plus Administered 02/13/21 14:15 Dose 100 mls @ ud IV .STK-MED ONE Vancomycin HCl Confirm 02/13/21 14:15 Vancomycin 1 Gram/200 Ml Bag Administered 02/13/21 14:16 Dose 1 gm in 200 mls @ ud IV .STK-MED ONE Piperacillin Sod/Tazobactam Sod Confirm 02/13/21 14:14 Zosyn 3.375 Gm Vial Administered 02/13/21 14:15 Dose 3.375 gm IV .STK-MED ONE Lab/Rad Data: Laboratory Result Diagrams 02/13/21 13:18 02/13/21 13:18 Laboratory Results 02/13/21 02/13/21 02/13/21 Range/Units 16:01 15:56 15:42 WBC (4.0-10.5) K/mm3 RBC (4.1-5.6) M/mm3 Hgb (12.5-18.0) gm/dl Hct (42-50) % MCV (78-100) fl MCH (26-32) pg MCHC (32-36) g/dl RDW (11.5-14.0) % Plt Count (150-450) K/mm3 MPV (7.5-11.0) fl Segmented Neutrophils (36.-66.) % Band Neutrophils (0.0-2.0) % Lymphocytes (Manual) (24-44) % Monocytes (Manual) (0.0-12.0) % Platelet Estimate (NORMAL) RBC Morphology Sodium (137-145) mmol/L Potassium (3.5-5.1) mmol/L Chloride (98-107) mmol/L Carbon Dioxide (22-30) mmol/L Anion Gap (5-15) MEQ/L BUN (9-20) mg/dL Creatinine (0.66-1.25) mg/dL Estimated GFR ML/MIN Glucose (74-106) mg/dL POC Glucometer (74 to 106) mg/dL Lactic Acid 2.8 H (0.4-2.0) Calcium (8.4-10.2) mg/dL Total Bilirubin (0.2-1.3) mg/dL AST (17-59) U/L ALT (0-50) U/L Alkaline Phosphatase (38-126) U/L Serum Total Protein (6.3-8.2) g/dL Albumin (3.5-5.0) g/dL Urine Color STRAW (YELLOW) Urine Appearance CLEAR (CLEAR) Urine pH 6.0 (5-6) Ur Specific Loving 1.006 (1.005-1.025) Urine Protein NEGATIVE (Negative) Urine Ketones NEGATIVE (NEGATIVE) Urine Blood SMALL (0-5) Srinivasan/ul Urine Nitrite NEGATIVE (NEGATIVE) Urine Bilirubin NEGATIVE (NEGATIVE) Urine Urobilinogen NEGATIVE (0-1) mg/dL Ur Leukocyte Esterase NEGATIVE (NEGATIVE) Urine WBC (Auto) NONE (0-5) /HPF Urine RBC (Auto) 3-5 (0-2) /HPF U Epithel Cells (Auto) NONE (FEW) /HPF Urine Bacteria (Auto) NONE (NEGATIVE) /HPF Urine Culture Reflexed NO (NO) Urine Glucose NEGATIVE (NEGATIVE) mg/dL Influenza Type A Ag (NEGATIVE) Influenza Type B Ag (NEGATIVE) SARS-CoV-2 (PCR) NEGATIVE (NEGATIVE) 02/13/21 02/13/21 02/13/21 Range/Units 13:40 13:18 13:18 WBC 17.8 H (4.0-10.5) K/mm3 RBC 4.46 (4.1-5.6) M/mm3 Hgb 11.5 L (12.5-18.0) gm/dl Hct 36.3 L (42-50) % MCV 81.4 (78-100) fl MCH 25.8 L (26-32) pg MCHC 31.7 L (32-36) g/dl RDW 16.7 H (11.5-14.0) % Plt Count 158 (150-450) K/mm3 MPV 10.4 (7.5-11.0) fl Segmented Neutrophils 76 H (36.-66.) % Band Neutrophils 11 H (0.0-2.0) % Lymphocytes (Manual) 8 L (24-44) % Monocytes (Manual) 5 (0.0-12.0) % Platelet Estimate NORMAL (NORMAL) RBC Morphology NORMAL Sodium 139 (137-145) mmol/L Potassium 3.3 L (3.5-5.1) mmol/L Chloride 104 (98-107) mmol/L Carbon Dioxide 23 (22-30) mmol/L Anion Gap 16.4 H (5-15) MEQ/L BUN 12 (9-20) mg/dL Creatinine 1.31 H (0.66-1.25) mg/dL Estimated GFR 54.9 ML/MIN Glucose 108 H (74-106) mg/dL POC Glucometer (74 to 106) mg/dL Lactic Acid 3.2 H (0.4-2.0) Calcium 8.8 (8.4-10.2) mg/dL Total Bilirubin 0.50 (0.2-1.3) mg/dL AST 33 (17-59) U/L ALT 19 (0-50) U/L Alkaline Phosphatase 126 (38-126) U/L Serum Total Protein 6.8 (6.3-8.2) g/dL Albumin 3.8 (3.5-5.0) g/dL Urine Color (YELLOW) Urine Appearance (CLEAR) Urine pH (5-6) Ur Specific Loving (1.005-1.025) Urine Protein (Negative) Urine Ketones (NEGATIVE) Urine Blood (0-5) Srinivasan/ul Urine Nitrite (NEGATIVE) Urine Bilirubin (NEGATIVE) Urine Urobilinogen (0-1) mg/dL Ur Leukocyte Esterase (NEGATIVE) Urine WBC (Auto) (0-5) /HPF Urine RBC (Auto) (0-2) /HPF U Epithel Cells (Auto) (FEW) /HPF Urine Bacteria (Auto) (NEGATIVE) /HPF Urine Culture Reflexed (NO) Urine Glucose (NEGATIVE) mg/dL Influenza Type A Ag (NEGATIVE) Influenza Type B Ag (NEGATIVE) SARS-CoV-2 (PCR) (NEGATIVE) 02/13/21 02/13/21 Range/Units 13:15 13:11 WBC (4.0-10.5) K/mm3 RBC (4.1-5.6) M/mm3 Hgb (12.5-18.0) gm/dl Hct (42-50) % MCV (78-100) fl MCH (26-32) pg MCHC (32-36) g/dl RDW (11.5-14.0) % Plt Count (150-450) K/mm3 MPV (7.5-11.0) fl Segmented Neutrophils (36.-66.) % Band Neutrophils (0.0-2.0) % Lymphocytes (Manual) (24-44) % Monocytes (Manual) (0.0-12.0) % Platelet Estimate (NORMAL) RBC Morphology Sodium (137-145) mmol/L Potassium (3.5-5.1) mmol/L Chloride (98-107) mmol/L Carbon Dioxide (22-30) mmol/L Anion Gap (5-15) MEQ/L BUN (9-20) mg/dL Creatinine (0.66-1.25) mg/dL Estimated GFR ML/MIN Glucose (74-106) mg/dL POC Glucometer 113 H (74 to 106) mg/dL Lactic Acid (0.4-2.0) Calcium (8.4-10.2) mg/dL Total Bilirubin (0.2-1.3) mg/dL AST (17-59) U/L ALT (0-50) U/L Alkaline Phosphatase (38-126) U/L Serum Total Protein (6.3-8.2) g/dL Albumin (3.5-5.0) g/dL Urine Color (YELLOW) Urine Appearance (CLEAR) Urine pH (5-6) Ur Specific Loving (1.005-1.025) Urine Protein (Negative) Urine Ketones (NEGATIVE) Urine Blood (0-5) Srinivasan/ul Urine Nitrite (NEGATIVE) Urine Bilirubin (NEGATIVE) Urine Urobilinogen (0-1) mg/dL Ur Leukocyte Esterase (NEGATIVE) Urine WBC (Auto) (0-5) /HPF Urine RBC (Auto) (0-2) /HPF U Epithel Cells (Auto) (FEW) /HPF Urine Bacteria (Auto) (NEGATIVE) /HPF Urine Culture Reflexed (NO) Urine Glucose (NEGATIVE) mg/dL Influenza Type A Ag NEGATIVE (NEGATIVE) Influenza Type B Ag NEGATIVE (NEGATIVE) SARS-CoV-2 (PCR) (NEGATIVE) - Progress Progress: improved Progress Note: Patient reassessed. He feels better. Case discussed with who accepts admission to observation. The complete 30 cc/kg bolus was not administered as patient has history of CHF with an ejection fraction between 20 and 30%. We will admit to the hospital. Covid test pending. 02/13/21 15:29 Acidosis gradually improving. Lactic acidosis improved from 3.2-2.8. 02/13/21 16:28 02/13/21 17:23 Covid test Negative. Patient will be admitted to [facility]. Discussed with : Nighat Will see patient in: hospital (observation) Counseled pt/family regarding: lab results, diagnosis, rad results - Departure Departure Disposition: Observation Clinical Impression: Lactic acidosis, Leukocytosis, High anion gap metabolic acidosis, Dehydration, Fever, Bilateral pneumonia, Lung granuloma, Arthritis of spine, Sepsis Condition: Stable Critical Care Time: No Referrals: CHANDANA DUNNE MD [Primary Care Provider] -
[2021-02-13 16:26] LABS: Appearance CLEAR (CLEAR); Bilirubin NEGATIVE (NEGATIVE); Blood SMALL Ery/ul (0-5); Glucose NEGATIVE (NEGATIVE); Ketones NEGATIVE (NEGATIVE); Leukocyte Esterase NEGATIVE (NEGATIVE); Nitrite NEGATIVE (NEGATIVE); Protein,Urine Dip NEGATIVE (Negative); Specific Gravity 1.006 (1.005-1.025); Urobilinogen NEGATIVE mg/dL (0-1)
[2021-02-13] MEDS: POTASSIUM CHLORIDE 20 mEq IN WATER 100ML 20 MEQ/100 ML BAG IV SCH ×2 (16:59→20:38)
[2021-02-13] MEDS ORDERED: Sodium Chloride 0.9% 1000 ML 1,000 ML IV SCH (18:30)
[2021-02-13] MEDS ORDERED: Zofran 4 MG/2 ML VIAL IV PRN (20:24)
[2021-02-13] MEDS ORDERED: PROVENTIL 2.5 MG/3 ML NEB IH PRN (20:24)
[2021-02-13] MEDS ORDERED: MORPHINE SULFATE 2 MG INJ IV PRN (20:24)
[2021-02-13] MEDS ORDERED: Lopressor 50 MG PO ONE (23:00)
[2021-02-13] MEDS ORDERED: NORVASC 5 MG PO ONE (23:00)
[2021-02-13] MEDS ORDERED: Carafate 1 GM PO ONE (23:00)
[2021-02-13] MEDS ORDERED: Neurontin 100 MG PO ONE (23:00)
[2021-02-13] MEDS ORDERED: clonazePAM PO ONE (23:00)
[2021-02-13] MEDS ORDERED: Flomax 0.4 MG PO ONE (23:00)
[2021-02-14 06:30] LABS: ANION GAP 11.9 MEQ/L (5-15); BILIRUBIN,TOTAL 0.5 mg/dL (0.2-1.3); Calcium 8.1 mg/dL (8.4-10.2); Creatinine 1 1.24 mg/dL (0.66-1.25); EST GLOMERULAR FILTRATION RATE 58.5 ML/MIN; Potassium 4.1 mmol/L (3.5-5.1); Total Protein 5.8 g/dL (6.3-8.2)
--- NOTE | 2021-02-14 08:24 | PCM.HP ---
History of Present Illness - Chief Complaint Chief Complaint: weakness for 1 day History of Present Illness: is a 89 year old male.presents to our ED for evaluation of generalized weakness. Patient is here with his daughter. Patient lives with his daughter. Daughter states that patient awoke this morning at 9 AM. He is normally independent and eats breakfast without any issues. However this morning patient was very weak. Patient required assistance getting out of bed. Patient also required assistance ambulating. Daughter reports that patient is normally ambulatory. He is usually independent with bilateral canes. Patient did not want breakfast this morning. He states he feels very weak. In triage patient was observed to be febrile. Report patient was hospitalized on February 05 for nausea vomiting and hiatal hernia. - Review of Systems Constitutional: Lethargy, Weakness, No Fever, No Chills Eyes: No Symptoms Ears, Nose, & Throat: No Symptoms Respiratory: No Cough, No Short Of Breath Cardiac: No Chest Pain, No Edema, No Syncope Abdominal/Gastrointestinal: No Abdominal Pain, No Nausea, No Vomiting, No Diarrhea Genitourinary Symptoms: No Dysuria Musculoskeletal: No Back Pain, No Neck Pain, No Fall Skin: No Symptoms, No Rash Neurological: No Dizziness, No Focal Weakness, No Sensory Changes Psychological: No Symptoms Endocrine: No Symptoms Hematologic/Lymphatic: No Symptoms Immunological/Allergic: No Symptoms Medications & Allergies Home Medications: Home Medication List Allopurinol 100 mg [Zyloprim 100 mg] 100 mg PO DAILY 08/11/19 [History Confirmed 02/13/21] Glimepiride 1 mg PO DAILY 08/11/19 [History Confirmed 02/13/21] Sucralfate 1 gm [Carafate 1 GM] 1 gm PO BID 08/11/19 [History Confirmed 02/13/21] Tamsulosin HCl 0.4 mg [Flomax 0.4 MG] 0.4 mg PO QHS 08/11/19 [History Confirmed 02/13/21] clonazePAM [Clonazepam] 0.5 mg PO BID 08/19/19 [History Confirmed 02/13/21] Gabapentin 100 mg PO TID 02/28/20 [History Confirmed 02/13/21] Magnesium Oxide 400 mg [Mag-Ox 400] 400 mg PO DAILY 04/08/20 [History Confirmed 02/13/21] Pantoprazole Sodium [Protonix] 40 mg PO DAILY 04/08/20 [History Confirmed 02/13/21] Losartan Potassium [Cozaar] 50 mg PO DAILY 05/27/20 [History Confirmed 02/13/21] Amlodipine Besylate 5 mg [Norvasc 5 mg] 5 mg PO BID 10/22/20 [History Confirmed 02/13/21] Diphenhydramine HCl 25 mg [Benadryl 25 mg Capsule] 25 mg PO HS PRN PRN 01/29/21 [History Confirmed 02/13/21] Levothyroxine Sodium [Levothyroxine] 50 mcg PO DAILY 02/05/21 [History Confirmed 02/13/21] Metoprolol Tartrate 100 mg PO BID 02/13/21 [History Confirmed 02/13/21] Allergies/Adverse Reactions: Allergies Allergy/AdvReac Type Severity Reaction Status Date / Time aspirin AdvReac Verified 02/13/21 20:31 - Past Medical History Past Medical History: Yes Neurological History: TIA ENT History: No Pertinent History Cardiac History: Arrhythmia, High Cholesterol, Hypertension, Myocardial Infarction ([place]) Respiratory History: Bronchitis Endocrine Medical History: Diabetes Type II Musculoskelatal History: Arthritis GI Medical History: GERD History: No Pertinent History Pyscho-Social History: Anxiety Male Reproductive Disorders: Prostate Cancer Comment: Gout, 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 - Past Surgical History Past Surgical History: Yes Neuro Surgical History: No Pertinent History Cardiac History: No Pertinent History Respiratory Surgery: No Pertinent History GI Surgical History: Hemorrhoidectomy Genitourinary Surgical Hx: No Pertinent History Musculskeletal Surgical Hx: Orthopedic Surgery Male Surgical History: No Pertinent History Other Surgical History: LT ARM - Social History Smoking Status: Former smoker How long have you smoked: 15 years Exposure to second hand smoke: Yes (DAUGHTER) Alcohol: None Drug Use: none Significant Family History: no pertinent family hx - Physical Exam Vital Signs: Vital Signs - 24 hr Temp Pulse Resp BP Pulse Ox 02/14/21 08:00 98.0 F 65 16 111/56 95 02/14/21 04:00 98.1 F 61 14 136/60 94 L 02/13/21 23:41 97.2 F 55 L 13 148/68 96 02/13/21 20:39 97.5 F 60 20 125/59 99 02/13/21 20:25 97.5 F 60 20 125/59 99 02/13/21 20:24 99 02/13/21 20:22 97.5 F 60 20 125/59 99 02/13/21 19:10 59 L 14 108/45 95 02/13/21 18:20 97.9 F 62 13 119/55 95 02/13/21 17:24 95 02/13/21 17:24 65 15 116/51 95 02/13/21 16:55 99.1 F 64 13 104/48 94 L 02/13/21 16:52 99.3 F 62 14 87/42 94 L 02/13/21 15:13 68 18 95/44 94 L 02/13/21 15:00 69 16 84/41 93 L 02/13/21 14:18 73 18 100/44 95 02/13/21 14:00 119 H 18 119/46 97 02/13/21 13:35 95 02/13/21 13:12 102.7 F 86 24 125/54 88 L General Appearance: mild distress, alert Neurologic Exam: alert, oriented x 3, cooperative, sensation nml, motor weakness, No motor deficits Eye Exam: PERRL/EOMI, eyes nml inspection Ears, Nose, Throat Exam: normal ENT inspection, TMs normal, pharynx normal, moist mucous membranes Neck Exam: normal inspection, non-tender, supple, full range of motion Respiratory Exam: diminished breath sounds, No respiratory distress Cardiovascular Exam: regular rate/rhythm, normal heart sounds, normal peripheral pulses Gastrointestinal/Abdomen Exam: soft, normal bowel sounds, No tenderness, No mass Back Exam: normal inspection, normal range of motion, No CVA tenderness, No vertebral tenderness Extremity Exam: normal inspection, normal range of motion, pelvis stable Skin Exam: normal color, warm, dry, No rash Lymphatic Exam: No adenopathy Results - Labs Lab/Micro Results: Lab Results-Last 24 Hours 02/13/21 02/13/21 02/13/21 Range/Units 13:11 13:15 13:18 WBC 17.8 H (4.0-10.5) K/mm3 RBC 4.46 (4.1-5.6) M/mm3 Hgb 11.5 L (12.5-18.0) gm/dl Hct 36.3 L (42-50) % MCV 81.4 (78-100) fl MCH 25.8 L (26-32) pg MCHC 31.7 L (32-36) g/dl RDW 16.7 H (11.5-14.0) % Plt Count 158 (150-450) K/mm3 MPV 10.4 (7.5-11.0) fl Segmented Neutrophils 76 H (36.-66.) % Band Neutrophils 11 H (0.0-2.0) % Lymphocytes (Manual) 8 L (24-44) % Monocytes (Manual) 5 (0.0-12.0) % Platelet Estimate NORMAL (NORMAL) RBC Morphology NORMAL Sodium (137-145) mmol/L Potassium (3.5-5.1) mmol/L Chloride (98-107) mmol/L Carbon Dioxide (22-30) mmol/L Anion Gap (5-15) MEQ/L BUN (9-20) mg/dL Creatinine (0.66-1.25) mg/dL Estimated GFR ML/MIN Glucose (74-106) mg/dL POC Glucometer 113 H (74 to 106) mg/dL Lactic Acid (0.4-2.0) Calcium (8.4-10.2) mg/dL Total Bilirubin (0.2-1.3) mg/dL AST (17-59) U/L ALT (0-50) U/L Alkaline Phosphatase (38-126) U/L Serum Total Protein (6.3-8.2) g/dL Albumin (3.5-5.0) g/dL Urine Color (YELLOW) Urine Appearance (CLEAR) Urine pH (5-6) Ur Specific [place] (1.005-1.025) Urine Protein (Negative) Urine Ketones (NEGATIVE) Urine Blood (0-5) Srinivasan/ul Urine Nitrite (NEGATIVE) Urine Bilirubin (NEGATIVE) Urine Urobilinogen (0-1) mg/dL Ur Leukocyte Esterase (NEGATIVE) Urine WBC (Auto) (0-5) /HPF Urine RBC (Auto) (0-2) /HPF U Epithel Cells (Auto) (FEW) /HPF Urine Bacteria (Auto) (NEGATIVE) /HPF Urine Culture Reflexed (NO) Urine Glucose (NEGATIVE) mg/dL Influenza Type A Ag NEGATIVE (NEGATIVE) Influenza Type B Ag NEGATIVE (NEGATIVE) SARS-CoV-2 (PCR) (NEGATIVE) 02/13/21 02/13/21 02/13/21 Range/Units 13:18 13:40 15:42 WBC (4.0-10.5) K/mm3 RBC (4.1-5.6) M/mm3 Hgb (12.5-18.0) gm/dl Hct (42-50) % MCV (78-100) fl MCH (26-32) pg MCHC (32-36) g/dl RDW (11.5-14.0) % Plt Count (150-450) K/mm3 MPV (7.5-11.0) fl Segmented Neutrophils (36.-66.) % Band Neutrophils (0.0-2.0) % Lymphocytes (Manual) (24-44) % Monocytes (Manual) (0.0-12.0) % Platelet Estimate (NORMAL) RBC Morphology Sodium 139 (137-145) mmol/L Potassium 3.3 L (3.5-5.1) mmol/L Chloride 104 (98-107) mmol/L Carbon Dioxide 23 (22-30) mmol/L Anion Gap 16.4 H (5-15) MEQ/L BUN 12 (9-20) mg/dL Creatinine 1.31 H (0.66-1.25) mg/dL Estimated GFR 54.9 ML/MIN Glucose 108 H (74-106) mg/dL POC Glucometer (74 to 106) mg/dL Lactic Acid 3.2 H 2.8 H (0.4-2.0) Calcium 8.8 (8.4-10.2) mg/dL Total Bilirubin 0.50 (0.2-1.3) mg/dL AST 33 (17-59) U/L ALT 19 (0-50) U/L Alkaline Phosphatase 126 (38-126) U/L Serum Total Protein 6.8 (6.3-8.2) g/dL Albumin 3.8 (3.5-5.0) g/dL Urine Color (YELLOW) Urine Appearance (CLEAR) Urine pH (5-6) Ur Specific [place] (1.005-1.025) Urine Protein (Negative) Urine Ketones (NEGATIVE) Urine Blood (0-5) Srinivasan/ul Urine Nitrite (NEGATIVE) Urine Bilirubin (NEGATIVE) Urine Urobilinogen (0-1) mg/dL Ur Leukocyte Esterase (NEGATIVE) Urine WBC (Auto) (0-5) /HPF Urine RBC (Auto) (0-2) /HPF U Epithel Cells (Auto) (FEW) /HPF Urine Bacteria (Auto) (NEGATIVE) /HPF Urine Culture Reflexed (NO) Urine Glucose (NEGATIVE) mg/dL Influenza Type A Ag (NEGATIVE) Influenza Type B Ag (NEGATIVE) SARS-CoV-2 (PCR) (NEGATIVE) 02/13/21 02/13/21 02/13/21 Range/Units 15:56 16:01 20:59 WBC (4.0-10.5) K/mm3 RBC (4.1-5.6) M/mm3 Hgb (12.5-18.0) gm/dl Hct (42-50) % MCV (78-100) fl MCH (26-32) pg MCHC (32-36) g/dl RDW (11.5-14.0) % Plt Count (150-450) K/mm3 MPV (7.5-11.0) fl Segmented Neutrophils (36.-66.) % Band Neutrophils (0.0-2.0) % Lymphocytes (Manual) (24-44) % Monocytes (Manual) (0.0-12.0) % Platelet Estimate (NORMAL) RBC Morphology Sodium (137-145) mmol/L Potassium (3.5-5.1) mmol/L Chloride (98-107) mmol/L Carbon Dioxide (22-30) mmol/L Anion Gap (5-15) MEQ/L BUN (9-20) mg/dL Creatinine (0.66-1.25) mg/dL Estimated GFR ML/MIN Glucose (74-106) mg/dL POC Glucometer 98 (74 to 106) mg/dL Lactic Acid (0.4-2.0) Calcium (8.4-10.2) mg/dL Total Bilirubin (0.2-1.3) mg/dL AST (17-59) U/L ALT (0-50) U/L Alkaline Phosphatase (38-126) U/L Serum Total Protein (6.3-8.2) g/dL Albumin (3.5-5.0) g/dL Urine Color STRAW (YELLOW) Urine Appearance CLEAR (CLEAR) Urine pH 6.0 (5-6) Ur Specific [place] 1.006 (1.005-1.025) Urine Protein NEGATIVE (Negative) Urine Ketones NEGATIVE (NEGATIVE) Urine Blood SMALL (0-5) Srinivasan/ul Urine Nitrite NEGATIVE (NEGATIVE) Urine Bilirubin NEGATIVE (NEGATIVE) Urine Urobilinogen NEGATIVE (0-1) mg/dL Ur Leukocyte Esterase NEGATIVE (NEGATIVE) Urine WBC (Auto) NONE (0-5) /HPF Urine RBC (Auto) 3-5 (0-2) /HPF U Epithel Cells (Auto) NONE (FEW) /HPF Urine Bacteria (Auto) NONE (NEGATIVE) /HPF Urine Culture Reflexed NO (NO) Urine Glucose NEGATIVE (NEGATIVE) mg/dL Influenza Type A Ag (NEGATIVE) Influenza Type B Ag (NEGATIVE) SARS-CoV-2 (PCR) NEGATIVE (NEGATIVE) 02/13/21 02/14/21 02/14/21 Range/Units 23:34 04:42 07:41 WBC (4.0-10.5) K/mm3 RBC (4.1-5.6) M/mm3 Hgb (12.5-18.0) gm/dl Hct (42-50) % MCV (78-100) fl MCH (26-32) pg MCHC (32-36) g/dl RDW (11.5-14.0) % Plt Count (150-450) K/mm3 MPV (7.5-11.0) fl Segmented Neutrophils (36.-66.) % Band Neutrophils (0.0-2.0) % Lymphocytes (Manual) (24-44) % Monocytes (Manual) (0.0-12.0) % Platelet Estimate (NORMAL) RBC Morphology Sodium 138 (137-145) mmol/L Potassium 4.1 D (3.5-5.1) mmol/L Chloride 106 (98-107) mmol/L Carbon Dioxide 24 (22-30) mmol/L Anion Gap 11.9 (5-15) MEQ/L BUN 15 (9-20) mg/dL Creatinine 1.24 (0.66-1.25) mg/dL Estimated GFR 58.5 ML/MIN Glucose 82 (74-106) mg/dL POC Glucometer 92 83 (74 to 106) mg/dL Lactic Acid (0.4-2.0) Calcium 8.1 L (8.4-10.2) mg/dL Total Bilirubin 0.50 (0.2-1.3) mg/dL AST 21 (17-59) U/L ALT 14 (0-50) U/L Alkaline Phosphatase 92 (38-126) U/L Serum Total Protein 5.8 L (6.3-8.2) g/dL Albumin 3.0 L (3.5-5.0) g/dL Urine Color (YELLOW) Urine Appearance (CLEAR) Urine pH (5-6) Ur Specific [place] (1.005-1.025) Urine Protein (Negative) Urine Ketones (NEGATIVE) Urine Blood (0-5) Srinivasan/ul Urine Nitrite (NEGATIVE) Urine Bilirubin (NEGATIVE) Urine Urobilinogen (0-1) mg/dL Ur Leukocyte Esterase (NEGATIVE) Urine WBC (Auto) (0-5) /HPF Urine RBC (Auto) (0-2) /HPF U Epithel Cells (Auto) (FEW) /HPF Urine Bacteria (Auto) (NEGATIVE) /HPF Urine Culture Reflexed (NO) Urine Glucose (NEGATIVE) mg/dL Influenza Type A Ag (NEGATIVE) Influenza Type B Ag (NEGATIVE) SARS-CoV-2 (PCR) (NEGATIVE) Accuchecks Date 02/14/21 Date 02/13/21 Date 02/13/21 Time 08:02 Time 20:59 - Radiology Impressions Radiology Exams & Impressions: Radiology Procedures Category Date Time Status CHEST 1 VIEW (PORTABLE) Stat Exams 02/13/21 13:30 Completed RAD/CHEST 1 VIEW (PORTABLE) Exam: AP upright portable chest film from 02/13/2021. Comparison AP portable chest film from 01/29/2021. Indication: Fever, pneumonia, chest pain. Findings: The transverse heart size is normal. Mixed interstitial/airspace infiltrate is seen within the lower half of the left lung and within the right infrahilar projection. This is consistent with bilateral pneumonia. The remainder of the lung [place] appears clear, except for perhaps a few scattered very small calcified granulomas. No pneumothorax or pleural effusion is seen. Moderate osteophyte formation is seen within the visualized thoracic spine. The patient's chin partially obscures the thoracic inlet and superior medial margin of the right lung apex. Impression: 1. Findings consistent with bilateral lower lung field pneumonia, more extensive on the left than right. - Other Procedures and Tests Respiratory Therapy 02/14/21 01:57 Oxygen Nasal Cannula 2 lpm Assessment/Plan (1) Bilateral pneumonia Current Visit: Yes Status: Acute Qualifiers: Pneumonia type: due to Pneumococcus Lung location: lower lobe of lung Qualified Code(s): J13 - Pneumonia due to Streptococcus pneumoniae Assessment & Plan: Chief Complaint Diagnosis Sepsis Allergies Allergy/AdvReac Type Severity Reaction Status Date / Time aspirin AdvReac Verified 02/13/21 20:31 Vital Signs (Last 24 hours) Temp Pulse Resp BP Pulse Ox 02/14/21 08:00 98.0 F 65 16 111/56 95 02/14/21 04:00 98.1 F 61 14 136/60 94 L 02/13/21 23:41 97.2 F 55 L 13 148/68 96 02/13/21 20:39 97.5 F 60 20 125/59 99 02/13/21 20:25 97.5 F 60 20 125/59 99 02/13/21 20:24 99 02/13/21 20:22 97.5 F 60 20 125/59 99 02/13/21 19:10 59 L 14 108/45 95 02/13/21 18:20 97.9 F 62 13 119/55 95 02/13/21 17:24 95 02/13/21 17:24 65 15 116/51 95 02/13/21 16:55 99.1 F 64 13 104/48 94 L 02/13/21 16:52 99.3 F 62 14 87/42 94 L 02/13/21 15:13 68 18 95/44 94 L 02/13/21 15:00 69 16 84/41 93 L 02/13/21 14:18 73 18 100/44 95 02/13/21 14:00 119 H 18 119/46 97 02/13/21 13:35 95 02/13/21 13:12 102.7 F 86 24 125/54 88 L Home Medications Medication Instructions Recorded Confirmed Last Taken Type Metoprolol Tartrate 100 mg PO BID 02/13/21 02/13/21 02/13/21 08:00 History Current Medications Generic Name Dose Route Start Last Admin Trade Name Freq PRN Reason Stop Dose Admin Morphine Sulfate 2 mg 02/13/21 20:24 Morphine Sulfate 2 Mg Inj IV 02/18/21 20:23 Q4H PRN PRN PAIN Ondansetron HCl 4 mg 02/13/21 20:24 Zofran 4 Mg/2 Ml Vial IV 03/15/21 20:23 Q6H PRN PRN NAUSEA/VOMITING Discontinued Medications Generic Name Dose Route Start Last Admin Trade Name Jeri PRN Reason Stop Dose Admin Acetaminophen 975 mg 02/13/21 13:25 02/13/21 13:35 Tylenol 325 Mg PO 02/13/21 13:26 975 mg STAT STA Administration Acetaminophen Confirm 02/13/21 13:34 Tylenol 325 Mg Administered 02/13/21 13:35 Dose 975 mg .ROUTE .STK-MED ONE Albuterol Sulfate 2.5 mg 02/13/21 20:24 Proventil 2.5 Mg/3 Ml Neb IH 03/15/21 20:23 Q4H PRN PRN SHORTNESS OF BREATH/WHEEZING Amlodipine Besylate 5 mg 02/13/21 23:00 02/13/21 22:28 Norvasc 5 Mg PO 02/13/21 23:01 Not Given ONCE ONE Clonazepam 0.5 mg 02/13/21 23:00 02/13/21 22:08 Clonazepam PO 02/13/21 23:01 Not Given ONCE ONE Gabapentin 100 mg 02/13/21 23:00 02/13/21 22:27 Neurontin 100 Mg PO 02/13/21 23:01 100 mg ONCE ONE Administration Sodium Chloride 1,000 mls @ 999 mls/hr 02/13/21 13:25 02/13/21 14:51 Sodium Chloride 0.9% 1000 Ml IV 02/13/21 14:25 Infused .Q1H1M STA Infusion Piperacillin Sod/Tazobactam 100 mls @ 200 mls/hr 02/13/21 13:34 02/13/21 14:16 Sod 3.375 gm/ Sodium Chloride IV 02/13/21 14:03 200 mls/hr STAT ONE Administration Sodium Chloride Confirm 02/13/21 13:32 Sodium Chloride 0.9% 1000 Ml Administered 02/13/21 13:33 Dose 1,000 mls @ ud .ROUTE .STK-MED ONE Vancomycin HCl 1 gm in 200 mls @ 125 mls/hr 02/13/21 13:34 02/13/21 18:22 Vancomycin 1 Gram/200 Ml Bag IV 02/13/21 15:09 Infused STAT ONE Infusion Sodium Chloride Confirm 02/13/21 14:14 Sodium Chloride 100ml Mini-Bag Plus Administered 02/13/21 14:15 Dose 100 mls @ ud IV .STK-MED ONE Vancomycin HCl Confirm 02/13/21 14:15 Vancomycin 1 Gram/200 Ml Bag Administered 02/13/21 14:16 Dose 1 gm in 200 mls @ ud IV .STK-MED ONE Potassium Chloride 20 meq in 100 mls @ 50 mls/hr 02/13/21 15:15 02/13/21 20:38 Potassium Chloride 20 Meq In Water 100ml IV 02/13/21 19:14 50 mls/hr Q2H DRAKE Administration Sodium Chloride 1,000 mls @ 25 mls/hr 02/13/21 18:30 02/13/21 18:22 Sodium Chloride 0.9% 1000 Ml IV 03/15/21 18:29 25 mls/hr .Q24H DRAKE Administration Sodium Chloride Confirm 02/13/21 18:21 Sodium Chloride 0.9% 1000 Ml Administered 02/13/21 18:22 Dose 1,000 mls @ ud .ROUTE .STK-MED ONE Metoprolol Tartrate 100 mg 02/13/21 23:00 02/13/21 22:09 Lopressor 50 Mg PO 02/13/21 23:01 Not Given ONCE ONE Piperacillin Sod/Tazobactam Sod Confirm 02/13/21 14:14 Zosyn 3.375 Gm Vial Administered 02/13/21 14:15 Dose 3.375 gm IV .STK-MED ONE Sucralfate 1 g 02/13/21 23:00 02/13/21 22:27 Carafate 1 Gm PO 02/13/21 23:01 1 g ONCE ONE Administration Tamsulosin HCl 0.4 mg 02/13/21 23:00 02/13/21 22:27 Flomax 0.4 Mg PO 02/13/21 23:01 0.4 mg ONCE ONE Administration Intake & Output (Last 24 hours) 02/11/21 02/12/21 02/13/21 02/14/21 11:59 11:59 11:59 11:59 Intake Total 1066 Output Total 300 Balance 766 Weight 84.3 kg Microbiology Results (Last 24 hours) 02/13/21 14:15 Blood Blood Culture Gram Stain - Pending 02/13/21 14:15 Blood Blood Culture - Pending 02/13/21 Unknown Blood Blood Culture Gram Stain - Pending 02/13/21 Unknown Blood Blood Culture - Pending Laboratory Results (Last 24 hours) 02/14/21 02/14/21 02/13/21 07:41 04:42 23:34 WBC RBC Hgb Hct MCV MCH MCHC RDW Plt Count MPV Segmented Neutrophils Band Neutrophils Lymphocytes (Manual) Monocytes (Manual) Platelet Estimate RBC Morphology Sodium 138 Potassium 4.1 D Chloride 106 Carbon Dioxide 24 Anion Gap 11.9 BUN 15 Creatinine 1.24 Estimated GFR 58.5 Glucose 82 POC Glucometer 83 92 Lactic Acid Calcium 8.1 L Total Bilirubin 0.50 AST 21 ALT 14 Alkaline Phosphatase 92 Serum Total Protein 5.8 L Albumin 3.0 L Urine Color Urine Appearance Urine pH Ur Specific [place] Urine Protein Urine Ketones Urine Blood Urine Nitrite Urine Bilirubin Urine Urobilinogen Ur Leukocyte Esterase Urine WBC (Auto) Urine RBC (Auto) U Epithel Cells (Auto) Urine Bacteria (Auto) Urine Culture Reflexed Urine Glucose Influenza Type A Ag Influenza Type B Ag SARS-CoV-2 (PCR) 02/13/21 02/13/21 02/13/21 20:59 16:01 15:56 WBC RBC Hgb Hct MCV MCH MCHC RDW Plt Count MPV Segmented Neutrophils Band Neutrophils Lymphocytes (Manual) Monocytes (Manual) Platelet Estimate RBC Morphology Sodium Potassium Chloride Carbon Dioxide Anion Gap BUN Creatinine Estimated GFR Glucose POC Glucometer 98 Lactic Acid Calcium Total Bilirubin AST ALT Alkaline Phosphatase Serum Total Protein Albumin Urine Color STRAW Urine Appearance CLEAR Urine pH 6.0 Ur Specific [place] 1.006 Urine Protein NEGATIVE Urine Ketones NEGATIVE Urine Blood SMALL Urine Nitrite NEGATIVE Urine Bilirubin NEGATIVE Urine Urobilinogen NEGATIVE Ur Leukocyte Esterase NEGATIVE Urine WBC (Auto) NONE Urine RBC (Auto) 3-5 U Epithel Cells (Auto) NONE Urine Bacteria (Auto) NONE Urine Culture Reflexed NO Urine Glucose NEGATIVE Influenza Type A Ag Influenza Type B Ag SARS-CoV-2 (PCR) NEGATIVE 02/13/21 02/13/21 02/13/21 15:42 13:40 13:18 WBC RBC Hgb Hct MCV MCH MCHC RDW Plt Count MPV Segmented Neutrophils Band Neutrophils Lymphocytes (Manual) Monocytes (Manual) Platelet Estimate RBC Morphology Sodium 139 Potassium 3.3 L Chloride 104 Carbon Dioxide 23 Anion Gap 16.4 H BUN 12 Creatinine 1.31 H Estimated GFR 54.9 Glucose 108 H POC Glucometer Lactic Acid 2.8 H 3.2 H Calcium 8.8 Total Bilirubin 0.50 AST 33 ALT 19 Alkaline Phosphatase 126 Serum Total Protein 6.8 Albumin 3.8 Urine Color Urine Appearance Urine pH Ur Specific [place] Urine Protein Urine Ketones Urine Blood Urine Nitrite Urine Bilirubin Urine Urobilinogen Ur Leukocyte Esterase Urine WBC (Auto) Urine RBC (Auto) U Epithel Cells (Auto) Urine Bacteria (Auto) Urine Culture Reflexed Urine Glucose Influenza Type A Ag Influenza Type B Ag SARS-CoV-2 (PCR) 02/13/21 02/13/21 02/13/21 13:18 13:15 13:11 WBC 17.8 H RBC 4.46 Hgb 11.5 L Hct 36.3 L MCV 81.4 MCH 25.8 L MCHC 31.7 L RDW 16.7 H Plt Count 158 MPV 10.4 Segmented Neutrophils 76 H Band Neutrophils 11 H Lymphocytes (Manual) 8 L Monocytes (Manual) 5 Platelet Estimate NORMAL RBC Morphology NORMAL Sodium Potassium Chloride Carbon Dioxide Anion Gap BUN Creatinine Estimated GFR Glucose POC Glucometer 113 H Lactic Acid Calcium Total Bilirubin AST ALT Alkaline Phosphatase Serum Total Protein Albumin Urine Color Urine Appearance Urine pH Ur Specific [place] Urine Protein Urine Ketones Urine Blood Urine Nitrite Urine Bilirubin Urine Urobilinogen Ur Leukocyte Esterase Urine WBC (Auto) Urine RBC (Auto) U Epithel Cells (Auto) Urine Bacteria (Auto) Urine Culture Reflexed Urine Glucose Influenza Type A Ag NEGATIVE Influenza Type B Ag NEGATIVE SARS-CoV-2 (PCR) Orders (Last 24 hours) Category Date Time Status Bedrest ROUTINE Activity 02/13/21 20:24 Active Server Manager STAT Care 02/13/21 13:30 Completed Code Status Order ROUTINE Care 02/13/21 20:24 Active EKG-ER Only STAT Care 02/13/21 13:25 Completed IV Care Q6H Care 02/13/21 20:24 Active IV Insertion STAT Care 02/13/21 13:25 Completed Neuro Checks Q4H Care 02/13/21 20:24 Active POCT Glucose Check ACHS Care 02/13/21 22:[address] in Observation ROUTINE Care 02/13/21 20:24 Active Pulse Oximetry (ED) STAT Care 02/13/21 13:25 Completed Telemetry q6h Care 02/13/21 20:24 Active CHEST 1 VIEW (PORTABLE) Stat Exams 02/13/21 13:30 Completed BLOOD CULTURE Stat Lab 02/13/21 14:15 Ordered CBC W DIFF Stat Lab 02/13/21 13:18 Completed CMP AM.LAB Lab 02/14/21 04:42 Completed CMP Stat Lab 02/13/21 13:18 Completed INFLUENZA A+B LAURA Stat Lab 02/13/21 13:15 Completed Lactic Acid Stat Lab 02/13/21 13:40 Completed Lactic Acid Stat Lab 02/13/21 15:42 Completed Manual Differential NC Stat Lab 02/13/21 13:18 Completed POCT GLUCOSE Stat Lab 02/13/21 13:11 Completed POCT GLUCOSE Stat Lab 02/13/21 20:59 Completed POCT GLUCOSE Stat Lab 02/13/21 23:34 Completed POCT GLUCOSE Stat Lab 02/14/21 07:41 Completed SARS-CoV-2 Xpert Express Routine Lab 02/13/21 16:01 Completed UA W/RFX UR CULTURE Stat Lab 02/13/21 15:56 Completed Acetaminophen 325 mg [Tylenol 325 mg] Med 02/13/21 13:34 Discontinued 975 mg .ROUTE .STK-MED ONE Acetaminophen 325 mg [Tylenol 325 mg] Med 02/13/21 13:25 Discontinued 975 mg PO STAT STA Albuterol 2.5 mg/3 ml Neb [Proventil 2.5 mg/3 ml Neb Med 02/13/21 20:24 Discontinued ] 2.5 mg IH Q4H PRN PRN Amlodipine Besylate 5 mg [Norvasc 5 mg] Med 02/13/21 23:00 Discontinued 5 mg PO ONCE ONE Gabapentin 100 mg [Neurontin 100 MG] Med 02/13/21 23:00 Discontinued 100 mg PO ONCE ONE Metoprolol Tartrate 50 mg [Lopressor 50 MG] Med 02/13/21 23:00 Discontinued 100 mg PO ONCE ONE Morphine Sulfate 2 mg Inj Med 02/13/21 20:24 Active 2 mg IV Q4H PRN PRN NaCl 0.9% 100 ml Mini-Bag Plus [Sodium Chloride 100ML Med 02/13/21 14:14 Discontinued MINI-BAG PLUS] 100 ml IV UD NaCl 0.9% 1000 ml [Sodium Chloride 0.9% 1000 ML] 1,000 Med 02/13/21 13:32 Discontinued ml .ROUTE UD NaCl 0.9% 1000 ml [Sodium Chloride 0.9% 1000 ML] 1,000 Med 02/13/21 18:21 Discontinued ml .ROUTE UD NaCl 0.9% 1000 ml [Sodium Chloride 0.9% 1000 ML] 1,000 Med 02/13/21 18:30 Discontinued ml IV 25 mls/hr NaCl 0.9% 1000 ml [Sodium Chloride 0.9% 1000 ML] 1,000 Med 02/13/21 13:25 Discontinued ml IV 999 mls/hr Ondansetron HCl 4 mg/2 ml [Zofran 4 MG/2 ML VIAL] Med 02/13/21 20:24 Active 4 mg IV Q6H PRN PRN Piperacillin/Tazobactam 3.375G [Zosyn 3.375 GM Vial] Med 02/13/21 14:14 Discontinued 3.375 gm IV .STK-MED ONE Piperacillin/Tazobactam 3.375G [Zosyn 3.375 GM Vial] 3. Med 02/13/21 13:34 Discontinued 375 gm NaCl 0.9% 100 ml Mini-Bag Plus [Sodium Chloride 100ML MINI-BAG PLUS] 100 ml IV STAT Potassium Chloride 20Meq/100Ml [POTASSIUM CHLORIDE 20 Med 02/13/21 15:15 Discontinued mEq IN WATER 100ML] 20 meq in 100 ml IV Q2H Sucralfate 1 gm [Carafate 1 GM] Med 02/13/21 23:00 Discontinued 1 g PO ONCE ONE Tamsulosin HCl 0.4 mg [Flomax 0.4 MG] Med 02/13/21 23:00 Discontinued 0.4 mg PO ONCE ONE Vancomycin/Water For Inj (Peg) [Vancomycin 1 Gram/200 Med 02/13/21 13:34 Discontinued ml Bag] 1 gm in 200 ml IV STAT Vancomycin/Water For Inj (Peg) [Vancomycin 1 Gram/200 Med 02/13/21 14:15 Discontinued ml Bag] 1 gm in 200 ml IV UD clonazePAM Med 02/13/21 23:00 Discontinued 0.5 mg PO ONCE ONE Oxygen Nasal Cannula 2 lpm RT 02/14/21 01:57 Active Pulse Oximetry CONTINUOUS RT 02/13/21 20:24 Active Patient Care Notes (Last 24 hours) 02/13/21 22:01 Nursing Note by Bambi Coto This nurse contacted Dr. Wolf and notified him of patient's BP 142/65 and HR 58. Order received to continue all night time home medications. Addendum entered by Bambi Coto 02/13/21 22:30: Metoprolol held d/t patient's HR in 50's. Norvasc held d/t patient being hypotensive in ED current BP 123/65. Clonazepam held d/t decreased LOC. Initialized on 02/13/21 22:01 - END OF NOTE Code(s): J18.9 - PNEUMONIA, UNSPECIFIED ORGANISM (2) CHF (congestive heart failure), NYHA class IV Current Visit: No Status: Acute Qualifiers: Congestive heart failure type: combined Congestive heart failure chronicity: chronic Qualified Code(s): I50.42 - Chronic combined systolic (congestive) and diastolic (congestive) heart failure Code(s): I50.9 - HEART FAILURE, UNSPECIFIED (3) COPD (chronic obstructive pulmonary disease) Current Visit: No Status: Acute Qualifiers: (4) Confusion Current Visit: Yes Status: Acute Code(s): R41.0 - DISORIENTATION, UNSPECIFIED
[2021-02-14 10:17] LABS: Hematocrit 30.2 % (42-50); Hemoglobin 9.5 gm/dl (12.5-18.0); Mean Cell Volume 82.7 fl (78-100); Mean Corpuscular Hgb Concent. 31.5 g/dl (32-36); Mean Platelet Volume 10.8 fl (7.5-11.0); Platelet Count 153 K/mm3 (150-450); Red Blood Count 3.65 M/mm3 (4.1-5.6); Red Cell Distribution Width 17.3 % (11.5-14.0)
[2021-02-14] MEDS ORDERED: PHARMACY DOSING REQUEST MC ONE (12:39)
[2021-02-14] MEDS ORDERED: BENADRYL 25 MG CAPSULE PO PRN (13:20)
[2021-02-14] MEDS: MAG-OX 400 PO SCH (14:56)
[2021-02-14] MEDS: clonazePAM PO SCH ×2 (14:56→21:56)
[2021-02-14] MEDS: Lopressor 50 MG PO SCH ×2 (14:56→21:57)
[2021-02-14] MEDS: Zosyn INJ 4.5 GM in Sodium Chloride 100ML MINI-BAG PLUS 100 ML IV SCH ×2 (14:57→22:13)
[2021-02-14] MEDS: Neurontin 100 MG PO SCH ×2 (14:57→21:56)
[2021-02-14] MEDS: Protonix 40MG Tablet PO SCH (14:57)
[2021-02-14] MEDS: Cozaar 50 MG PO SCH (14:57)
[2021-02-14] MEDS: SYNTHROID 50 MCG PO SCH (14:57)
[2021-02-14] MEDS: ZYLOPRIM 100 MG PO SCH (14:57)
[2021-02-14] MEDS: Amaryl 2 MG PO SCH (14:57)
[2021-02-14] MEDS: NORVASC 5 MG PO SCH ×2 (14:58→21:57)
[2021-02-14] MEDS: Carafate 1 GM PO SCH (17:58)
[2021-02-14] MEDS ORDERED: NON-FORMULARY ITEM (Metoprolol Tartrate [Metoprolol Tartrate] 100 MG) PO SCH (22:00)
[2021-02-14] MEDS ORDERED: Flomax 0.4 MG PO SCH (22:00)
[2021-02-15] MEDS: Zosyn INJ 4.5 GM in Sodium Chloride 100ML MINI-BAG PLUS 100 ML IV SCH (05:43)
--- NOTE | 2021-02-15 07:57 | PCM.NOTE ---
Date and Time: 02/15/21 0756 Subjective Assessment: doing better - Review of Systems Constitutional: No Fever, No Chills Eyes: No Symptoms Ears, Nose, & Throat: No Symptoms Respiratory: No Cough, No Short Of Breath Cardiac: No Chest Pain, No Edema, No Syncope Abdominal/Gastrointestinal: No Abdominal Pain, No Nausea, No Vomiting, No Diarrhea Genitourinary Symptoms: No Dysuria Musculoskeletal: No Back Pain, No Neck Pain Skin: No Rash Neurological: No Dizziness, No Focal Weakness, No Sensory Changes Psychological: No Symptoms Endocrine: No Symptoms Hematologic/Lymphatic: No Symptoms Immunological/Allergic: No Symptoms Objective Exam General Appearance: no apparent distress, alert Neurologic Exam: alert, oriented x 3, cooperative, normal mood/affect, nml cerebellar function, sensation nml, No motor deficits Skin Exam: normal color, warm, dry Eye Exam: PERRL, EOMI, eyes nml inspection Ears, Nose, Throat Exam: normal ENT inspection, pharynx normal, moist mucous membranes Neck Exam: normal inspection, non-tender, supple, full range of motion Respiratory Exam: diminished breath sounds, crackles/rales, No respiratory distress Cardiovascular Exam: regular rate/rhythm, normal heart sounds Gastrointestinal/Abdomen Exam: soft, No tenderness, No mass Extremity Exam: normal inspection, normal range of motion Back Exam: normal inspection, normal range of motion, No CVA tenderness, No vertebral tenderness Male Genitalia Exam: deferred Rectal Exam: deferred OBJECTIVE DATA Vital Signs: Vital Signs - 24 hr Temp Pulse Resp BP BP Pulse Ox 02/15/21 04:00 97.6 F 63 16 148/79 95 02/14/21 23:45 148/72 02/14/21 23:28 97.5 F 69 20 178/81 92 L 02/14/21 20:55 91 L 02/14/21 20:00 98.3 F 65 18 159/72 95 02/14/21 16:00 98.0 F 80 16 169/74 94 L 02/14/21 11:44 97.9 F 75 16 186/80 95 02/14/21 11:38 92 L 02/14/21 08:00 98.0 F 65 16 111/56 95 Pain Assessment - Last Documented Pain Intensity 0 Pain Scale Used 0-10 Pain Scale Intake and Output: Intake & Output 02/12/21 02/13/21 02/14/2121 11:59 11:59 11:59 11:59 Intake Total 1066 1470 Output Total 300 4025 Balance 766 -2555 Weight 84.3 kg Lab Results: Lab Results-Last 24 Hours 02/14/21 02/14/21 02/14/21 Range/Units 05:00 05:00 11:38 WBC 21.0 H (4.0-10.5) K/mm3 RBC 3.65 L (4.1-5.6) M/mm3 Hgb 9.5 L (12.5-18.0) gm/dl Hct 30.2 L (42-50) % MCV 82.7 (78-100) fl MCH 26.0 (26-32) pg MCHC 31.5 L (32-36) g/dl RDW 17.3 H (11.5-14.0) % Plt Count 153 (150-450) K/mm3 MPV 10.8 (7.5-11.0) fl POC Glucometer 165 H (74 to 106) mg/dL Hemoglobin A1c 5.91 (4.5-6.0) % 02/14/21 02/14/21 Range/Units 16:34 21:02 WBC (4.0-10.5) K/mm3 RBC (4.1-5.6) M/mm3 Hgb (12.5-18.0) gm/dl Hct (42-50) % MCV (78-100) fl MCH (26-32) pg MCHC (32-36) g/dl RDW (11.5-14.0) % Plt Count (150-450) K/mm3 MPV (7.5-11.0) fl POC Glucometer 143 H 121 H (74 to 106) mg/dL Hemoglobin A1c (4.5-6.0) % Radiology Exams: Radiology Procedures Category Date Time Status CHEST 1 VIEW (PORTABLE) Stat Exams 02/13/21 13:30 Completed Multi-Disciplinary Progress Notes: Multi-Disciplinary Progress Notes 02/14/21 13:01 Pharmacy Note by Pete Morley Pharmacy dosing Zosyn - estimated CrCl via [employer] is 35 ml/min. Dosing for CAP is 4.5g q6h. Renal adjustment for patients with a CrCl of 20-40 ml/min is either 3.375 g q6h or 4.5 g q8h, we chose the latter. Initialized on 02/14/21 13:01 - END OF NOTE 02/14/21 12:18 Case Management Note by Sol Roberto ATTEMPTED TO CALL AND S/W PIPE FOR CASE MANAGEMENT ASSESSMENT- NO ANSWER AT THIS TIME Initialized on 02/14/21 12:18 - END OF NOTE Assessment/Plan (1) Bilateral pneumonia Current Visit: Yes Status: Acute Qualifiers: Pneumonia type: due to Pneumococcus Lung location: lower lobe of lung Qualified Code(s): J13 - Pneumonia due to Streptococcus pneumoniae Code(s): J18.9 - PNEUMONIA, UNSPECIFIED ORGANISM (2) CHF (congestive heart failure), NYHA class IV Current Visit: No Status: Acute Qualifiers: Congestive heart failure type: combined Congestive heart failure sports marketing internship nicity: chronic Qualified Code(s): I50.42 - Chronic combined systolic (congestive) and diastolic (congestive) heart failure Code(s): I50.9 - HEART FAILURE, UNSPECIFIED (3) COPD (chronic obstructive pulmonary disease) Current Visit: No Status: Acute Qualifiers: (4) Confusion Current Visit: Yes Status: Acute Code(s): R41.0 - DISORIENTATION, UNSPECIFIED
[2021-02-15] MEDS: Carafate 1 GM PO SCH (08:01)
[2021-02-15] MEDS: Amaryl 2 MG PO SCH (08:03)
[2021-02-15] MEDS ORDERED: NON-FORMULARY ITEM (Levothyroxine Sodium [Levothyroxine] 50 MCG) PO SCH (10:00)
[2021-02-15] MEDS ORDERED: NON-FORMULARY ITEM (Losartan Potassium [Cozaar] 50 MG) PO SCH (10:00)
[2021-02-15] MEDS ORDERED: NON-FORMULARY ITEM (Glimepiride [Glimepiride] 1 MG) PO SCH (10:00)
[2021-02-15] MEDS ORDERED: PANTOPRAZOLE SODIUM 40 MG PO SCH (10:00)
[2021-02-15] MEDS: Neurontin 100 MG PO SCH (11:04)
[2021-02-15] MEDS: NORVASC 5 MG PO SCH (11:04)
[2021-02-15] MEDS: SYNTHROID 50 MCG PO SCH (11:05)
[2021-02-15] MEDS: Protonix 40MG Tablet PO SCH (11:06)
[2021-02-15] MEDS: Cozaar 50 MG PO SCH (11:06)
[2021-02-15] MEDS: ZYLOPRIM 100 MG PO SCH (11:07)
[2021-02-15] MEDS: clonazePAM PO SCH (11:07)
[2021-02-15] MEDS: MAG-OX 400 PO SCH (11:08)
[2021-02-15] MEDS: Lopressor 50 MG PO SCH (11:08)
[2021-02-15 11:29] VITALS: BP 122/59; PULSE 75; O2SAT 94
--- NOTE | 2021-02-16 08:18 | PCM.DS ---
Discharge Summary Date of Admission: 02/13/21 20:17 Admitting Physician: CHANDANA DUNNE Primary Care Provider: CHANDANA DUNNE Allergies Allergies aspirin Adverse Reaction (Verified 02/13/21 20:31) bleeding Hospital Summary - Hospital Course Hospital Course: Chief Complaint Diagnosis weakness for 1 day Allergies Allergy/AdvReac Type Severity Reaction Status Date / Time aspirin AdvReac Verified 02/13/21 20:31 Vital Signs (Last 24 hours) Temp Pulse Resp BP Pulse Ox 02/15/21 11:27 97.9 F 75 16 122/59 94 L Home Medications Medication Instructions Recorded Confirmed Last Taken Type Metoprolol Tartrate 100 mg PO BID 02/13/21 02/13/21 02/13/21 08:00 History Cephalexin Mh 500 mg [Keflex 500 500 mg PO QID 28 Days #7 capsule 02/15/21 Unknown Rx mg] Current Medications Discontinued Medications Generic Name Dose Route Start Last Admin Trade Name Freq PRN Reason Stop Dose Admin Acetaminophen 975 mg 02/13/21 13:25 02/13/21 13:35 Tylenol 325 Mg PO 02/13/21 13:26 975 mg STAT STA Administration Acetaminophen Confirm 02/13/21 13:34 Tylenol 325 Mg Administered 02/13/21 13:35 Dose 975 mg .ROUTE .STK-MED ONE Albuterol Sulfate 2.5 mg 02/13/21 20:24 Proventil 2.5 Mg/3 Ml Neb IH 03/15/21 20:23 Q4H PRN PRN SHORTNESS OF BREATH/WHEEZING Allopurinol 100 mg 02/14/21 14:00 02/15/21 11:07 Zyloprim 100 Mg PO 03/16/21 13:59 100 mg DAILY DRAKE Administration Amlodipine Besylate 5 mg 02/13/21 23:00 02/13/21 22:28 Norvasc 5 Mg PO 02/13/21 23:01 Not Given ONCE ONE Amlodipine Besylate 5 mg 02/14/21 14:00 02/15/21 11:04 Norvasc 5 Mg PO 03/16/21 13:59 5 mg BID DRAKE Administration Clonazepam 0.5 mg 02/13/21 23:00 02/13/21 22:08 Clonazepam PO 02/13/21 23:01 Not Given ONCE ONE Clonazepam 0.5 mg 02/14/21 14:00 02/15/21 11:07 Clonazepam PO 03/16/21 13:59 0.5 mg BID DRAKE Administration Diphenhydramine HCl 25 mg 02/14/21 13:20 Benadryl 25 Mg Capsule PO 03/16/21 13:19 HS PRN PRN ALLERGIES Gabapentin 100 mg 02/13/21 23:00 02/13/21 22:27 Neurontin 100 Mg PO 02/13/21 23:01 100 mg ONCE ONE Administration Gabapentin 100 mg 02/14/21 15:00 02/15/21 11:04 Neurontin 100 Mg PO 03/16/21 14:59 100 mg TID DRAKE Administration Glimepiride 1 mg 02/14/21 14:00 02/15/21 08:03 Amaryl 2 Mg PO 03/16/21 13:59 1 mg BREAKFAST DRAKE Administration Sodium Chloride 1,000 mls @ 999 mls/hr 02/13/21 13:25 02/13/21 14:51 Sodium Chloride 0.9% 1000 Ml IV 02/13/21 14:25 Infused .Q1H1M STA Infusion Piperacillin Sod/Tazobactam 100 mls @ 200 mls/hr 02/13/21 13:34 02/13/21 14:16 Sod 3.375 gm/ Sodium Chloride IV 02/13/21 14:03 200 mls/hr STAT ONE Administration Sodium Chloride Confirm 02/13/21 13:32 Sodium Chloride 0.9% 1000 Ml Administered 02/13/21 13:33 Dose 1,000 mls @ ud .ROUTE .STK-MED ONE Vancomycin HCl 1 gm in 200 mls @ 125 mls/hr 02/13/21 13:34 02/13/21 18:22 Vancomycin 1 Gram/200 Ml Bag IV 02/13/21 15:09 Infused STAT ONE Infusion Sodium Chloride Confirm 02/13/21 14:14 Sodium Chloride 100ml Mini-Bag Plus Administered 02/13/21 14:15 Dose 100 mls @ ud IV .STK-MED ONE Vancomycin HCl Confirm 02/13/21 14:15 Vancomycin 1 Gram/200 Ml Bag Administered 02/13/21 14:16 Dose 1 gm in 200 mls @ ud IV .STK-MED ONE Potassium Chloride 20 meq in 100 mls @ 50 mls/hr 02/13/21 15:15 02/13/21 20:38 Potassium Chloride 20 Meq In Water 100ml IV 02/13/21 19:14 50 mls/hr Q2H DRAKE Administration Sodium Chloride 1,000 mls @ 25 mls/hr 02/13/21 18:30 02/13/21 18:22 Sodium Chloride 0.9% 1000 Ml IV 03/15/21 18:29 25 mls/hr .Q24H DRAKE Administration Sodium Chloride Confirm 02/13/21 18:21 Sodium Chloride 0.9% 1000 Ml Administered 02/13/21 18:22 Dose 1,000 mls @ ud .ROUTE .STK-MED ONE Piperacillin Sod/Tazobactam 100 mls @ 200 mls/hr 02/14/21 14:00 02/15/21 05:43 Sod 4.5 gm/ Sodium Chloride IV 03/16/21 13:59 200 mls/hr Q8HT DRAKE Administration Levothyroxine Sodium 50 mcg 02/14/21 14:00 02/15/21 11:05 Synthroid 50 Mcg PO 03/16/21 13:59 50 mcg DAILY DRAKE Administration Losartan Potassium 50 mg 02/14/21 14:00 02/15/21 11:06 Cozaar 50 Mg PO 03/16/21 13:59 50 mg DAILY DRAKE Administration Magnesium Oxide 400 mg 02/14/21 14:00 02/15/21 11:08 Mag-Ox 400 PO 03/16/21 13:59 400 mg DAILY DRAKE Administration Metoprolol Tartrate 100 mg 02/13/21 23:00 02/13/21 22:09 Lopressor 50 Mg PO 02/13/21 23:01 Not Given ONCE ONE Metoprolol Tartrate 100 mg 02/14/21 14:00 02/15/21 11:08 Lopressor 50 Mg PO 03/16/21 13:59 100 mg BID DRAKE Administration Morphine Sulfate 2 mg 02/13/21 20:24 Morphine Sulfate 2 Mg Inj IV 02/18/21 20:23 Q4H PRN PRN PAIN Non-Formulary Medication 1 each 02/14/21 12:39 02/14/21 14:58 Pharmacy Dosing Request 02/14/21 12:40 1 each STAT ONE Administration Ondansetron HCl 4 mg 02/13/21 20:24 Zofran 4 Mg/2 Ml Vial IV 03/15/21 20:23 Q6H PRN PRN NAUSEA/VOMITING Pantoprazole Sodium 40 mg 02/14/21 14:00 02/15/21 11:06 Protonix 40mg Tablet PO 03/16/21 13:59 40 mg DAILY DRAKE Administration Piperacillin Sod/Tazobactam Sod Confirm 02/13/21 14:14 Zosyn 3.375 Gm Vial Administered 02/13/21 14:15 Dose 3.375 gm IV .STK-MED ONE Sucralfate 1 g 02/13/21 23:00 02/13/21 22:27 Carafate 1 Gm PO 02/13/21 23:01 1 g ONCE ONE Administration Sucralfate 1 g 02/14/21 16:30 02/15/21 08:01 Carafate 1 Gm PO 03/16/21 16:29 1 g BIDAC DRAKE Administration Tamsulosin HCl 0.4 mg 02/13/21 23:00 02/13/21 22:27 Flomax 0.4 Mg PO 02/13/21 23:01 0.4 mg ONCE ONE Administration Tamsulosin HCl 0.4 mg 02/14/21 22:00 02/14/21 21:57 Flomax 0.4 Mg PO 03/16/21 21:59 0.4 mg QHS DRAKE Administration Intake & Output (Last 24 hours) 02/13/21 02/14/21 02/15/21 02/16/21 11:59 11:59 11:59 11:59 Intake Total 1066 1470 Output Total 300 4025 Balance 766 -2555 Weight 84.3 kg Microbiology Results (Last 24 hours) 02/13/21 14:15 Blood Blood Culture Gram Stain - Pending 02/13/21 14:15 Blood Blood Culture - Preliminary NO GROWTH TO DATE 02/13/21 13:50 Blood Blood Culture Gram Stain - Pending 02/13/21 13:50 Blood Blood Culture - Preliminary NO GROWTH TO DATE Laboratory Results (Last 24 hours) 02/15/21 11:20 POC Glucometer TNP Orders (Last 24 hours) Category Date Time Status POCT GLUCOSE Stat Lab 02/15/21 07:58 Completed POCT GLUCOSE Stat Lab 02/15/21 11:20 Completed Patient Care Notes (Last 24 hours) 02/15/21 10:49 PROJECT MANAGEMENT ENGINEER Note by Sheeba Lucia Patient gotten up in chair andsatting 92 on room air . Initialized on 02/15/21 10:49 - END OF NOTE 02/15/21 10:14 Case Management Note by Sol Roberto S/W DAUGHTER - SHE CONTINUES TO DENY ANY NEEDS REGARDING DC AT THIS TIME. SHE PLANS FOR PATIENT TO RETURN HOME WITH HER AND HER TO PROVIDE CARE FOR HIM WAS PRIOR TO ADMISSION Initialized on 02/15/21 10:14 - END OF NOTE - Vitals & Intake/Output Vital Signs: Vital Signs Temperature 97.9 F 02/15/21 11:27 Pulse Rate 75 02/15/21 11:27 Respiratory Rate 16 02/15/21 11:27 Blood Pressure 122/59 02/15/21 11:27 O2 Sat by Pulse Oximetry 94 L 02/15/21 11:27 Intake & Output: Intake & Output 02/13/21 02/14/21 02/15/21 02/16/21 11:59 11:59 11:59 11:59 Intake Total 1066 1470 Output Total 300 4025 Balance 766 -2555 Weight 84.3 kg - Lab Result Diagrams: 02/14/21 05:00 02/14/21 04:42 Lab Results-Last 24 Hrs: Lab Results-Last 24 Hours 02/15/21 Range/Units 11:20 POC Glucometer TNP Micro Results-Entire Visit: Microbiology 02/13/21 14:15 Blood Culture - Preliminary Blood NO GROWTH TO DATE 02/13/21 13:50 Blood Culture - Preliminary Blood NO GROWTH TO DATE Accuchecks Date 02/15/21 Time 11:27 - Procedures and Test Procedures and Tests throughout Hospitalization: Therapy Orders & Screens 02/14/21 01:57 Oxygen Nasal Cannula 2 lpm Comment: Diagnosis: Sepsis 02/14/21 12:56 PT Eval & Treat ( Order) ONCE Reason for Eval:: WEAKNESS Diagnosis: weakness for 1 day Discharge Exam General Appearance: no apparent distress, alert Neurologic Exam: alert, oriented x 3, cooperative, normal mood/affect, nml cerebellar function, sensation nml, No motor deficits Eye Exam: PERRL, EOMI, eyes nml inspection Ears, Nose, Throat Exam: normal ENT inspection, pharynx normal, moist mucous membranes Neck Exam: normal inspection, non-tender, supple, full range of motion Respiratory Exam: normal breath sounds, lungs clear, No respiratory distress Cardiovascular Exam: regular rate/rhythm, normal heart sounds Gastrointestinal/Abdomen Exam: soft, No tenderness, No mass Male Genitalia Exam: deferred Rectal Exam: deferred Back Exam: normal inspection, normal range of motion, No CVA tenderness, No vertebral tenderness Extremity Exam: normal inspection, normal range of motion Skin Exam: normal color, warm, dry Final Diagnosis/Problem List - Final Discharge Diagnosis/Problem (1) Bilateral pneumonia Status: Resolved Code(s): J18.9 - PNEUMONIA, UNSPECIFIED ORGANISM (2) CHF (congestive heart failure), NYHA class IV Status: Chronic Code(s): I50.9 - HEART FAILURE, UNSPECIFIED (3) COPD (chronic obstructive pulmonary disease) Status: Chronic (4) Confusion Status: Resolved Code(s): R41.0 - DISORIENTATION, UNSPECIFIED - Discharge Discharge Date: 02/15/21 Disposition: Home, Self-Care Condition: Stable Prescriptions: New Cephalexin Mh 500 mg [Keflex 500 mg] 500 mg PO QID 28 Days #7 capsule Continue Tamsulosin HCl 0.4 mg [Flomax 0.4 MG] 0.4 mg PO QHS Allopurinol 100 mg [Zyloprim 100 mg] 100 mg PO DAILY Sucralfate 1 gm [Carafate 1 GM] 1 gm PO BID Glimepiride 1 mg PO DAILY clonazePAM [Clonazepam] 0.5 mg PO BID Gabapentin 100 mg PO TID Pantoprazole Sodium [Protonix] 40 mg PO DAILY Magnesium Oxide 400 mg [Mag-Ox 400] 400 mg PO DAILY Losartan Potassium [Cozaar] 50 mg PO DAILY Amlodipine Besylate 5 mg [Norvasc 5 mg] 5 mg PO BID Diphenhydramine HCl 25 mg [Benadryl 25 mg Capsule] 25 mg PO HS PRN PRN PRN Reason: Allergies Levothyroxine Sodium [Levothyroxine] 50 mcg PO DAILY Metoprolol Tartrate 100 mg PO BID Instructions: Pneumonia, Adult (DC) Follow up with: CHANDANA DUNNE MD [Primary Care Provider] - 02/23/21 1:45 pm
== END 2021-02-15 14:32 | disposition home or self-care (01) ==
LOC: ED 13:06 → MED SURG 20:17
PROVIDERS: ADMIT General Practice; ATTEND General Practice
DX: J18.9 Pneumonia, unspecified organism (principal); I50.9 Heart failure, unspecified; R53.1 Weakness; R41.0 Disorientation, unspecified; J44.9 Chronic obstructive pulmonary disease, unspecified; Z79.899 Other long term (current) drug therapy; I10 Essential (primary) hypertension; E11.9 Type 2 diabetes mellitus without complications; E78.00 Pure hypercholesterolemia, unspecified; Z20.828 Contact with and (suspected) exposure to other viral communicable diseases
CPT/HCPCS: 36000; 36415; 51702; 71045; 80053; 81001; 82947; 83036; 83605; 85025; 85027; 87040; 87400; 93005; 93041; 94760; 94762; 96360; 96365; 96367; 97161; 99285; U0003; 93268; J2543; J3480; A9270-GY; G0378; J3370

== ENCOUNTER 2021-03-16 15:34 | Emergency (ER) | payer MEDICARE ==
[2021-03-16] MEDS ORDERED: XYLOCAINE 1% HCL 20 ML MDV IJ ONE (15:35)
--- NOTE | 2021-03-16 15:37 | ERPHSYRPT ---
- History of Present Illness Time Seen by Provider: 03/16/21 15:37 Source: patient, family Exam Limitations: no limitations Physician History: This is an 89-year-old white male who is a patient of Dr. Dunne and has chronic fall episodes which is not his primary issue today but family did mention that. He is here because of 2 to 3 days of coughing spells. He has a history of recurrent bronchitis. He has history of anxiety, diabetes, arrhythmias, elevated cholesterol, hypertension and coronary artery disease. He denies chest pain. He denies abdominal pain. He has no shortness of breath. He has no nausea vomiting or diarrhea. Timing/Duration: day(s) Cough Quality/Degree: moderate, dry cough Possible Cause: occasional episodes Modifying Factors: Improves With: coughing Associated Symptoms: cough, No fever, No chills, No chest pain/soreness Allergies/Adverse Reactions: aspirin Adverse Reaction (Verified 03/16/21 16:05) bleeding Home Medications: Allopurinol 100 mg [Zyloprim 100 mg] 100 mg PO DAILY 08/11/19 [History] Glimepiride 1 mg PO DAILY 08/11/19 [History] Sucralfate 1 gm [Carafate 1 GM] 1 gm PO BID 08/11/19 [History] Tamsulosin HCl 0.4 mg [Flomax 0.4 MG] 0.4 mg PO QHS 08/11/19 [History] clonazePAM [Clonazepam] 0.5 mg PO BID 08/19/19 [History] Gabapentin 100 mg PO TID 02/28/20 [History] Magnesium Oxide 400 mg [Mag-Ox 400] 400 mg PO DAILY 04/08/20 [History] Pantoprazole Sodium [Protonix] 40 mg PO DAILY 04/08/20 [History] Losartan Potassium [Cozaar] 50 mg PO DAILY 05/27/20 [History] Amlodipine Besylate 5 mg [Norvasc 5 mg] 5 mg PO BID 10/22/20 [History] Diphenhydramine HCl 25 mg [Benadryl 25 mg Capsule] 25 mg PO HS PRN PRN 01/29/21 [History] Metoprolol Tartrate 100 mg PO BID 02/13/21 [History] Hx Tetanus, Diphtheria Vaccination/Date Given: Yes Hx Influenza Vaccination/Date Given: Yes Hx Pneumococcal Vaccination/Date Given: Yes Travel Risk - International Travel Have you traveled outside of the country in past 3 weeks: No - Coronavirus Screening Are you exhibiting any of the following symptoms?: Yes Symptoms: Cough: New Onset - Vaccine Status Have you recieved a Covid-19 vaccination: No - Review of Systems Constitutional: No Symptoms Eyes: No Symptoms Ears, Nose, & Throat: No Symptoms Respiratory: Cough Cardiac: No Symptoms Abdominal/Gastrointestinal: No Symptoms Genitourinary Symptoms: No Symptoms Musculoskeletal: No Symptoms Skin: No Symptoms Neurological: No Symptoms Psychological: No Symptoms Endocrine: No Symptoms Hematologic/Lymphatic: No Symptoms Immunological/Allergic: No Symptoms All Other Systems: Reviewed and Negative - Past Medical History Pertinent Past Medical History: Yes Neurological History: TIA ENT History: No Pertinent History Cardiac History: Arrhythmia, High Cholesterol, Hypertension, Myocardial Infarction ([place]) Respiratory History: Bronchitis Endocrine Medical History: Diabetes Type II Musculoskeletal History: Arthritis GI Medical History: GERD History: No Pertinent History Psycho-Social History: Anxiety Male Reproductive Disorders: Prostate Cancer Other Medical History: Gout, 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 - Past Surgical History Past Surgical History: Yes Neuro Surgical History: No Pertinent History Cardiac: No Pertinent History Respiratory: No Pertinent History Gastrointestinal: Hemorrhoidectomy Genitourinary: No Pertinent History Musculoskeletal: Orthopedic Surgery Male Surgical History: No Pertinent History Other Surgical History: LT ARM - Social History Smoking Status: Former smoker How long have you smoked: 15 years Exposure to second hand smoke: Yes (DAUGHTER) Drug Use: none Patient Lives Alone: No Significant Family History: no pertinent family hx - Nursing Vital Signs Nursing Vital Signs: Initial Vital Signs Temperature 97.4 F 03/16/21 15:59 Pulse Rate 51 L 03/16/21 15:59 Respiratory Rate 16 03/16/21 15:59 Blood Pressure 148/70 03/16/21 15:59 O2 Sat by Pulse Oximetry 99 03/16/21 15:59 Pain Scale Pain Intensity 0 - Physical Exam General Appearance: no apparent distress, alert Eye Exam: PERRL/EOMI, eyes nml inspection Ears, Nose, Throat Exam: normal ENT inspection, moist mucous membranes Neck Exam: normal inspection, non-tender, supple, full range of motion Respiratory Exam: normal breath sounds, lungs clear, airway intact, No chest tenderness, No respiratory distress Cardiovascular Exam: regular rate/rhythm, normal heart sounds, normal peripheral pulses Gastrointestinal/Abdomen Exam: soft, normal bowel sounds, No tenderness Rectal Exam: not done Back Exam: normal inspection, normal range of motion, No CVA tenderness, No vertebral tenderness Extremity Exam: normal inspection, normal range of motion, pelvis stable Neurologic Exam: alert, oriented x 3, cooperative, credit administration specialist II-XII nml as tested, normal mood/affect, nml cerebellar function, nml station & gait, sensation nml Skin Exam: normal color, warm, dry Lymphatic Exam: No adenopathy SpO2 Interpretation: normal O2 Delivery: Room Air - Course Nursing assessment & vital signs reviewed: Yes Ordered Tests: Active Orders 24 hr Category Date Time Status CHEST 1 VIEW (PORTABLE) Stat Exams 03/16/21 16:18 Completed Medication Summary Discontinued Medications Generic Name Dose Route Start Last Admin Trade Name Freq PRN Reason Stop Dose Admin Hydrocodone Bitart/Acetaminophen 5 ml 03/16/21 18:28 Hydrocodone-Acetamin 2.5-108/5 Ml Solution PO 03/16/21 18:29 STAT STA Ceftriaxone Sodium 1,000 mg 03/16/21 18:27 Rocephin 1000 Mg Inj IM 03/16/21 18:28 STAT ONE Methylprednisolone Sodium 0 mg 03/16/21 18:28 Succinate 125 mg/ Sterile IM 03/16/21 18:29 Water 2 ml STAT ONE Lab/Rad Data: Laboratory Results 03/16/21 Range/Units 17:49 SARS-CoV-2 (PCR) NEGATIVE (NEGATIVE) - Progress Progress: improved, re-examined Air Movement: good Progress Note: 03/16/21 18:38 Chest x-ray shows no acute cardiopulmonary process. Blood Culture(s) Obtained: No Antibiotics given: Yes Counseled pt/family regarding: lab results, diagnosis, need for follow-up, rad results - Departure Departure Disposition: Home Clinical Impression: Upper respiratory infection, Bronchitis Condition: Stable Critical Care Time: No Referrals: CHANDANA DUNNE MD [Primary Care Provider] - Additional Instructions: Take your medication as prescribed. Follow-up with your primary care physician for further management including I discussion with your primary care physician about the patient's frequent falling. Prescriptions: Cefdinir 300 mg PO BID 7 Days #14 cap
--- NOTE | 2021-03-16 17:01 | XRAY ---
Indication: Cough and short of breath. Comparison: February 13, 2021. Portable chest demonstrates minimal bibasilar subsegmental atelectasis/scarring and tiny left apical calcified granuloma. No focal infiltrate, consolidation, or large effusion. Heart not enlarged for AP portable technique. Bony thorax intact with mild osteopenia and degenerative changes. Impression: Nonacute chest with chronic features.
[2021-03-16] MEDS ORDERED: Rocephin 1000 MG INJ IM ONE (18:27)
[2021-03-16] MEDS ORDERED: solu-MEDROL 125 MG, Sterile H2O 10 ml 2 ML IM ONE ×2 (18:28)
[2021-03-16] MEDS ORDERED: HYDROCODONE-ACETAMIN 2.5-108/5 ML SOLUTION PO STA (18:28)
[2021-03-16] MEDS ORDERED: HYDROCODONE-ACETAMIN 2.5-108/5 ML SOLUTION ONE (18:59)
[2021-03-16] MEDS ORDERED: solu-MEDROL ONE (19:00)
[2021-03-16] MEDS ORDERED: Rocephin 1000 MG INJ ONE (19:00)
[2021-03-16] MEDS ORDERED: Sterile H2O 10 ml IJ ONE (19:00)
[2021-03-16 19:30] VITALS: BP 189/86; PULSE 53; O2SAT 99
== END 2021-03-16 19:31 | disposition home or self-care (01) ==
LOC: ED 15:34
DX: J06.9 Acute upper respiratory infection, unspecified (principal); J40 Bronchitis, not specified as acute or chronic; Z79.899 Other long term (current) drug therapy; Z86.73 Personal history of transient ischemic attack (TIA), and cerebral infarction without residual deficits; I25.2 Old myocardial infarction; E11.9 Type 2 diabetes mellitus without complications; Z85.46 Personal history of malignant neoplasm of prostate; Z85.828 Personal history of other malignant neoplasm of skin
CPT/HCPCS: 71045; 96372; 99284; U0003; J0696; J2930; A9270-GY

== ENCOUNTER 2021-03-26 17:48 | Emergency (ER) | payer MEDICARE ==
[2021-03-26] MEDS ORDERED: Reglan 10 MG/2 ML IV ONE (19:23)
[2021-03-26] MEDS ORDERED: TYLENOL 325 MG PO ONE (19:23)
[2021-03-26] MEDS ORDERED: Sodium Chloride 0.9% 1000 ML 1,000 ML IV STA (19:23)
[2021-03-26] MEDS ORDERED: BENADRYL 50 MG/ML IV ONE (19:24)
[2021-03-26 19:30] LABS: Hematocrit 33.4 % (42-50); Hemoglobin 10.3 gm/dl (12.5-18.0); Mean Cell Volume 83.3 fl (78-100); Mean Corpuscular Hemoglobin 25.7 pg (26-32); Mean Corpuscular Hgb Concent. 30.8 g/dl (32-36); Mean Platelet Volume 10.4 fl (7.5-11.0); Platelet Count 152 K/mm3 (150-450); Red Blood Count 4.01 M/mm3 (4.1-5.6); Red Cell Distribution Width 17.6 % (11.5-14.0); White Blood Count 6.2 K/mm3 (4.0-10.5)
[2021-03-26] MEDS ORDERED: Sodium Chloride 0.9% 1000 ML 1,000 ML ONE (19:36)
[2021-03-26] MEDS ORDERED: Reglan 10 MG/2 ML ONE (19:36)
[2021-03-26] MEDS ORDERED: BENADRYL 50 MG/ML ONE (19:36)
[2021-03-26] MEDS ORDERED: TYLENOL 325 MG ONE (19:36)
[2021-03-26 19:37] LABS: ALBUMIN 3.6 g/dL (3.5-5.0); ANION GAP 14.9 MEQ/L (5-15); BILIRUBIN,TOTAL 0.5 mg/dL (0.2-1.3); Calcium 8.5 mg/dL (8.4-10.2); Creatinine 1 1.29 mg/dL (0.66-1.25); EST GLOMERULAR FILTRATION RATE 55.7 ML/MIN; Potassium 3.7 mmol/L (3.5-5.1); Total Protein 6.4 g/dL (6.3-8.2)
--- NOTE | 2021-03-26 19:54 | ERPHSYRPT ---
- History of Present Illness Time Seen by Provider: 03/26/21 19:11 Source: patient, family Exam Limitations: no limitations Patient Subjective Stated Complaint: pt family reports fatigue, dehydration and headache, pt states his headache is neatly gone. pt daughter is his caregiver and worries he is dehydrated, states his intake is decreased. pt daughter also reports he sprayed flea spray on his chair at home and then sat in it causing irritation to the skin. reports skin is peeling. Triage Nursing Assessment: pt is aox3, pt is sleepy during exam, arouses easily to name and questions, answers appropriately, pupils perrl, afebrile, resps easy and non labored, cap refill < 3 seconds, pt skin pale warm dry. Physician History: 89 years old male with history of hypertension, hyperlipidemia, diabetes mellitus is brought in the ER by daughter with multiple complaints. She reports patient has decreased oral intake for the last few days and feeling weak fatigued and tired, not acting himself. Also reports having off-and-on headache which is more with activity moderate intensity, all over without any focal neuro deficit. No difficulty ambulation. No chest pain palpitations or shortness of breath. No abdominal pain but has nausea without vomiting. Daughter thinks patient is dehydrated need fluids. Timing/Duration: day(s) (4), gradual onset, worse Severity: moderate Modifying Factors: Worsens With: movement Associated Symptoms: nausea, headaches, loss of appetite, malaise, No vomiting, No abdominal pain, No shortness of breath Allergies/Adverse Reactions: aspirin Adverse Reaction (Verified 03/26/21 18:26) bleeding Home Medications: Allopurinol 100 mg [Zyloprim 100 mg] 100 mg PO DAILY 08/11/19 [History] Glimepiride 1 mg PO DAILY 08/11/19 [History] Sucralfate 1 gm [Carafate 1 GM] 1 gm PO BID 08/11/19 [History] Tamsulosin HCl 0.4 mg [Flomax 0.4 MG] 0.4 mg PO QHS 08/11/19 [History] clonazePAM [Clonazepam] 0.5 mg PO BID 08/19/19 [History] Gabapentin 100 mg PO TID 02/28/20 [History] Magnesium Oxide 400 mg [Mag-Ox 400] 400 mg PO DAILY 04/08/20 [History] Pantoprazole Sodium [Protonix] 40 mg PO DAILY 04/08/20 [History] Losartan Potassium [Cozaar] 50 mg PO DAILY 05/27/20 [History] Amlodipine Besylate 5 mg [Norvasc 5 mg] 5 mg PO BID 10/22/20 [History] Diphenhydramine HCl 25 mg [Benadryl 25 mg Capsule] 25 mg PO HS PRN PRN 01/29/21 [History] Metoprolol Tartrate 100 mg PO BID 02/13/21 [History] Levothyroxine Sodium 50 Mcg [Synthroid 50 Mcg] 50 mcg PO DAILY 03/26/21 [History] Hx Tetanus, Diphtheria Vaccination/Date Given: Yes Hx Influenza Vaccination/Date Given: Yes Hx Pneumococcal Vaccination/Date Given: Yes Immunizations Up to Date: Yes Travel Risk - International Travel Have you traveled outside of the country in past 3 weeks: No - Coronavirus Screening Are you exhibiting any of the following symptoms?: Yes Symptoms: Headaches/Body Aches/Fatigue Close contact with a COVID-19 positive Pt in past 14-21 Days: No - Vaccine Status Have you recieved a Covid-19 vaccination: No - Review of Systems Constitutional: Fatigue, Weakness Eyes: No Symptoms Ears, Nose, & Throat: No Symptoms Respiratory: No Symptoms Cardiac: No Symptoms Abdominal/Gastrointestinal: Nausea Genitourinary Symptoms: No Symptoms Musculoskeletal: No Symptoms Skin: No Symptoms Neurological: Headache Psychological: No Symptoms Endocrine: No Symptoms Hematologic/Lymphatic: No Symptoms Immunological/Allergic: No Symptoms - Past Medical History Pertinent Past Medical History: Yes Neurological History: TIA ENT History: No Pertinent History Cardiac History: Arrhythmia, High Cholesterol, Hypertension, Myocardial Infarction (VT) Respiratory History: Bronchitis Endocrine Medical History: Diabetes Type II Musculoskeletal History: Arthritis GI Medical History: GERD History: No Pertinent History Psycho-Social History: Anxiety Male Reproductive Disorders: Prostate Cancer Other Medical History: Gout, 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 - Past Surgical History Past Surgical History: Yes Neuro Surgical History: No Pertinent History Cardiac: No Pertinent History Respiratory: No Pertinent History Gastrointestinal: Hemorrhoidectomy Genitourinary: No Pertinent History Musculoskeletal: Orthopedic Surgery Male Surgical History: No Pertinent History Other Surgical History: LT ARM - Social History Smoking Status: Never smoker How long have you smoked: 15 years Exposure to second hand smoke: Yes (DAUGHTER) Drug Use: none Patient Lives Alone: No Significant Family History: no pertinent family hx - Nursing Vital Signs Nursing Vital Signs: Initial Vital Signs Temperature 97.8 F 03/26/21 18:19 Pulse Rate 70 03/26/21 18:19 Respiratory Rate 21 03/26/21 18:19 Blood Pressure 157/70 03/26/21 18:19 O2 Sat by Pulse Oximetry 97 03/26/21 18:19 Pain Scale Pain Intensity 0 - Physical Exam General Appearance: no apparent distress, alert Eye Exam: PERRL/EOMI, eyes nml inspection Ears, Nose, Throat Exam: normal ENT inspection, pharynx normal Neck Exam: normal inspection, supple, full range of motion Respiratory Exam: normal breath sounds, lungs clear Cardiovascular Exam: regular rate/rhythm, normal heart sounds Gastrointestinal/Abdomen Exam: soft, normal bowel sounds, No tenderness Back Exam: normal inspection, normal range of motion Extremity Exam: normal inspection, normal range of motion, pelvis stable Neurologic Exam: alert, oriented x 3, cooperative, 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 tested Skin Exam: normal color SpO2 Interpretation: normal SpO2: 98 O2 Delivery: Room Air - Course EKG Interpreted by Me: RATE (68), Sinus Rhythm, NORMAL AXIS, NORMAL INTERVALS, NORMAL QRS Ordered Tests: Medication Summary Discontinued Medications Generic Name Dose Route Start Last Admin Trade Name Johnq PRN Reason Stop Dose Admin Acetaminophen 975 mg 03/26/21 19:23 03/26/21 19:41 Tylenol 325 Mg PO 03/26/21 19:24 975 mg STAT ONE Administration Acetaminophen Confirm 03/26/21 19:36 Tylenol 325 Mg Administered 03/26/21 19:37 Dose 975 mg .ROUTE .STK-MED ONE Diphenhydramine HCl 25 mg 03/26/21 19:24 03/26/21 19:46 Benadryl 50 Mg/Ml IV 03/26/21 19:25 25 mg STAT ONE Administration Diphenhydramine HCl Confirm 03/26/21 19:36 Benadryl 50 Mg/Ml Administered 03/26/21 19:37 Dose 50 mg .ROUTE .STK-MED ONE Doxycycline Hyclate 100 mg 03/26/21 22:19 03/26/21 22:32 Vibramycin 100 Mg PO 03/26/21 22:20 100 mg STAT ONE Administration Doxycycline Hyclate Confirm 03/26/21 22:29 Vibramycin 100 Mg Administered 03/26/21 22:30 Dose 100 mg .ROUTE .STK-MED ONE Sodium Chloride 1,000 mls @ 999 mls/hr 03/26/21 19:23 03/26/21 20:54 Sodium Chloride 0.9% 1000 Ml IV 03/26/21 20:23 Infused .Q1H1M STA Infusion Sodium Chloride Confirm 03/26/21 19:36 Sodium Chloride 0.9% 1000 Ml Administered 03/26/21 19:37 Dose 1,000 mls @ ud .ROUTE .STK-MED ONE Metoclopramide HCl 10 mg 03/26/21 19:23 03/26/21 19:45 Reglan 10 Mg/2 Ml IV 03/26/21 19:24 10 mg STAT ONE Administration Metoclopramide HCl Confirm 03/26/21 19:36 Reglan 10 Mg/2 Ml Administered 03/26/21 19:37 Dose 10 mg .ROUTE .STK-MED ONE Lab/Rad Data: Laboratory Result Diagrams 03/26/21 19:27 03/26/21 19:27 Laboratory Results 03/26/21 03/26/21 03/26/21 Range/Units 22:32 19:32 19:27 WBC (4.0-10.5) K/mm3 RBC (4.1-5.6) M/mm3 Hgb (12.5-18.0) gm/dl Hct (42-50) % MCV (78-100) fl MCH (26-32) pg MCHC (32-36) g/dl RDW (11.5-14.0) % Plt Count (150-450) K/mm3 MPV (7.5-11.0) fl Segmented Neutrophils (36.-66.) % Band Neutrophils (0.0-2.0) % Lymphocytes (Manual) (24-44) % Monocytes (Manual) (0.0-12.0) % Eosinophils (Manual) (0.00-3.0) % Platelet Estimate (NORMAL) RBC Morphology Poikilocytosis Ovalocytes Sodium (137-145) mmol/L Potassium (3.5-5.1) mmol/L Chloride (98-107) mmol/L Carbon Dioxide (22-30) mmol/L Anion Gap (5-15) MEQ/L BUN (9-20) mg/dL Creatinine (0.66-1.25) mg/dL Estimated GFR ML/MIN Glucose (74-106) mg/dL Lactic Acid (0.4-2.0) Calcium (8.4-10.2) mg/dL Total Bilirubin (0.2-1.3) mg/dL AST (17-59) U/L ALT (0-50) U/L Alkaline Phosphatase (38-126) U/L Troponin I < 0.012 (0.000-0.034) ng/mL Serum Total Protein (6.3-8.2) g/dL Albumin (3.5-5.0) g/dL Lipase (23-300) U/L Urine Color YELLOW (YELLOW) Urine Appearance CLEAR (CLEAR) Urine pH 7.0 (5-6) Ur Specific [place] 1.005 (1.005-1.025) Urine Protein NEGATIVE (Negative) Urine Ketones NEGATIVE (NEGATIVE) Urine Blood NEGATIVE (0-5) Srinivasan/ul Urine Nitrite NEGATIVE (NEGATIVE) Urine Bilirubin NEGATIVE (NEGATIVE) Urine Urobilinogen NEGATIVE (0-1) mg/dL Ur Leukocyte Esterase NEGATIVE (NEGATIVE) Urine WBC (Auto) NONE (0-5) /HPF Urine RBC (Auto) NONE (0-2) /HPF U Epithel Cells (Auto) NONE (FEW) /HPF Urine Bacteria (Auto) NONE SEEN (NEGATIVE) /HPF Urine Culture Reflexed NO (NO) Urine Glucose NEGATIVE (NEGATIVE) mg/dL SARS-CoV-2 RNA (ALICIA) Not Detected (Not Detected) 03/26/21 03/26/21 03/26/21 Range/Units 19:27 19:27 19:23 WBC 6.2 (4.0-10.5) K/mm3 RBC 4.01 L (4.1-5.6) M/mm3 Hgb 10.3 L (12.5-18.0) gm/dl Hct 33.4 L (42-50) % MCV 83.3 (78-100) fl MCH 25.7 L (26-32) pg MCHC 30.8 L (32-36) g/dl RDW 17.6 H (11.5-14.0) % Plt Count 152 (150-450) K/mm3 MPV 10.4 (7.5-11.0) fl Segmented Neutrophils 58 (36.-66.) % Band Neutrophils 3 H (0.0-2.0) % Lymphocytes (Manual) 22 L (24-44) % Monocytes (Manual) 15 H (0.0-12.0) % Eosinophils (Manual) 2 (0.00-3.0) % Platelet Estimate NORMAL (NORMAL) RBC Morphology ABNORMAL Poikilocytosis 2+ Ovalocytes 2+ Sodium 137 (137-145) mmol/L Potassium 3.7 (3.5-5.1) mmol/L Chloride 105 (98-107) mmol/L Carbon Dioxide 20 L (22-30) mmol/L Anion Gap 14.9 (5-15) MEQ/L BUN 10 (9-20) mg/dL Creatinine 1.29 H (0.66-1.25) mg/dL Estimated GFR 55.7 ML/MIN Glucose 135 H (74-106) mg/dL Lactic Acid 1.2 (0.4-2.0) Calcium 8.5 (8.4-10.2) mg/dL Total Bilirubin 0.50 (0.2-1.3) mg/dL AST 21 (17-59) U/L ALT 12 (0-50) U/L Alkaline Phosphatase 123 (38-126) U/L Troponin I (0.000-0.034) ng/mL Serum Total Protein 6.4 (6.3-8.2) g/dL Albumin 3.6 (3.5-5.0) g/dL Lipase 46 (23-300) U/L Urine Color (YELLOW) Urine Appearance (CLEAR) Urine pH (5-6) Ur Specific [place] (1.005-1.025) Urine Protein (Negative) Urine Ketones (NEGATIVE) Urine Blood (0-5) Srinivasan/ul Urine Nitrite (NEGATIVE) Urine Bilirubin (NEGATIVE) Urine Urobilinogen (0-1) mg/dL Ur Leukocyte Esterase (NEGATIVE) Urine WBC (Auto) (0-5) /HPF Urine RBC (Auto) (0-2) /HPF U Epithel Cells (Auto) (FEW) /HPF Urine Bacteria (Auto) (NEGATIVE) /HPF Urine Culture Reflexed (NO) Urine Glucose (NEGATIVE) mg/dL SARS-CoV-2 RNA (ALICIA) (Not Detected) - Progress Progress: improved Progress Note: 03/26/21 22:20 89 years old is evaluated for multiple complaints including headache, generalized weakness fatigue, decreased oral intake. Although he denies having any headache currently. Given symptomatic treatment along with fluids, on reevaluation feeling better. Baseline work-up is grossly unremarkable. Chest x-ray questionable infiltrative process on the right versus COPD bronchitis, given doxycycline. Patient is not tachypneic or tachycardic and oxygen saturation are 96% on room air. We will continue with jyoti to go home. I do not know the exact cause of his symptoms could be viral etiology. Patient is unvaccinated and will obtain Covid 19 test outpatient. Discussed signs symptoms of worsening needing return to ER which patient/daughter seemed understanding. 03/26/21 22:23 Counseled pt/family regarding: lab results, diagnosis, need for follow-up, rad results - Departure Departure Disposition: Home Clinical Impression: Generalized weakness, COPD mixed type Headache Qualifiers: Headache type: other headache syndrome Qualified Code(s): G44.89 - Other headache syndrome Condition: Stable Critical Care Time: No Referrals: CHANDANA DUNNE MD [Primary Care Provider] - (1-2 days for reevaluation) Instructions: Chronic Obstructive Pulmonary Disease, Headache, Adult (DC) Additional Instructions: Keep yourself well-hydrated. Follow-up with primary care physician for reevaluation in the next 1 to 2 days. Return to ER for worsening generalized weakness, headache, or if develop difficulty breathing/fever chills etc. Prescriptions: Doxycycline Hyclate 100 mg [Vibramycin 100 MG] 100 mg PO BID #16 tab
[2021-03-26 19:56] LABS: Appearance CLEAR (CLEAR); Bilirubin NEGATIVE (NEGATIVE); Blood NEGATIVE Ery/ul (0-5); Glucose NEGATIVE (NEGATIVE); Ketones NEGATIVE (NEGATIVE); Leukocyte Esterase NEGATIVE (NEGATIVE); Nitrite NEGATIVE (NEGATIVE); Protein,Urine Dip NEGATIVE (Negative); Specific Gravity 1.005 (1.005-1.025); Urobilinogen NEGATIVE mg/dL (0-1)
[2021-03-26 20:14] LABS: Bacteria NONE SEEN /HPF (NEGATIVE)
[2021-03-26 21:08] LABS: BAND 3 % (0.0-2.0); Eosinophil 2 % (0.00-3.0); Lymphocytes 22 % (24-44); Monocyte 15 % (0.0-12.0); Neutrophils 58 % (36.-66.); Ovalocytes 2+; Platelet Estimate NORMAL (NORMAL); Poikilocytosis 2+; Total Cells Counted 100
[2021-03-26 22:16] VITALS: BP 174/76; PULSE 60
[2021-03-26] MEDS ORDERED: Vibramycin 100 MG PO ONE (22:19)
[2021-03-26 22:25] VITALS: O2SAT 98
[2021-03-26] MEDS ORDERED: Vibramycin 100 MG ONE (22:29)
--- NOTE | 2021-03-27 08:40 | XRAY ---
Indication: Weakness and headache. Comparison: March 16, 2021. Portable chest less inflated with new subtle right mid to lower lung patchy airspace disease and small effusion. Stable minimal left base subsegmental atelectasis/scarring. Borderline cardiomegaly again with tortuous descending aorta. Bony thorax intact again with mild osteopenia and degenerative changes.
--- NOTE | 2021-03-27 08:42 | XRAY ---
Indication: Headache, nausea, vomiting, somnolence, and recurrent TIAs. Hypertension. Multiple contiguous axial images obtained through the head without contrast. Comparison: February 05, 2021. Again age-appropriate global atrophy, mild periventricular degenerative micro-ischemia, tiny remote lacunar infarct left basal ganglia, and small right frontal calcified meningioma. No acute intraconal hemorrhage, abnormal extra-axial fluid collection, or mass effect. Fourth ventricle is midline without hydrocephalus. Bony calvarium intact. Visualized paranasal sinuses and mastoid air cells are clear. Impression: Continued nonacute senile brain with again tiny left basal ganglia remote lacunar infarct and small right frontal calcified meningioma. Comment: Preliminary interpretation made by [facility]. No critical discrepancy.
== END 2021-03-26 22:47 | disposition home or self-care (01) ==
LOC: ED 17:48
DX: M62.81 Muscle weakness (generalized) (principal); J44.1 Chronic obstructive pulmonary disease with (acute) exacerbation; G44.89 Other headache syndrome; I10 Essential (primary) hypertension; I25.2 Old myocardial infarction; E11.9 Type 2 diabetes mellitus without complications; Z86.73 Personal history of transient ischemic attack (TIA), and cerebral infarction without residual deficits; Z85.46 Personal history of malignant neoplasm of prostate
CPT/HCPCS: 36000; 36415; 70450; 71045; 80053; 81001; 83605; 83690; 84484; 85025; 87040; 96360; 96374; 96375; 99284; U0003; J1200; A9270-GY

== ENCOUNTER 2021-05-02 15:39 | Observation (INO) | payer MEDICARE ==
[2021-05-02] MEDS ORDERED: Hydromorphone 1 mg/ml Injection IV ONE (16:15)
[2021-05-02] MEDS ORDERED: Sodium Chloride 0.9% 1000 ML 1,000 ML IV STA (16:15)
[2021-05-02] MEDS ORDERED: Zofran 4 MG/2 ML VIAL IV ONE (16:15)
[2021-05-02] MEDS ORDERED: PROTONIX 40 MG IV IV ONE ×2 (16:15→16:27)
[2021-05-02] MEDS ORDERED: Zofran 4 MG/2 ML VIAL ONE (16:26)
[2021-05-02] MEDS ORDERED: Hydromorphone 1 mg/ml Injection ONE (16:28)
[2021-05-02] MEDS ORDERED: Sodium Chloride 0.9% 1000 ML 1,000 ML ONE (16:28)
[2021-05-02 16:52] LABS: Hematocrit 34.6 % (42-50); Hemoglobin 10.8 gm/dl (12.5-18.0); Mean Cell Volume 83.4 fl (78-100); Mean Corpuscular Hgb Concent. 31.2 g/dl (32-36); Mean Platelet Volume 10.7 fl (7.5-11.0); Platelet Count 143 K/mm3 (150-450); Red Blood Count 4.15 M/mm3 (4.1-5.6); Red Cell Distribution Width 17.9 % (11.5-14.0); White Blood Count 10.5 K/mm3 (4.0-10.5)
[2021-05-02 17:06] LABS: INR 1.14 (0.8-3.0); PROTIME 13.5 SECONDS (9.4-12.5)
[2021-05-02 17:21] LABS: ALBUMIN 3.6 g/dL (3.5-5.0); ANION GAP 16.2 MEQ/L (5-15); BILIRUBIN,TOTAL 0.9 mg/dL (0.2-1.3); Calcium 8.5 mg/dL (8.4-10.2); Creatinine 1 1.59 mg/dL (0.66-1.25); EST GLOMERULAR FILTRATION RATE 43.8 ML/MIN; Potassium 3.5 mmol/L (3.5-5.1); Total Protein 6.3 g/dL (6.3-8.2)
--- NOTE | 2021-05-02 18:30 | ERPHSYRPT ---
- History of Present Illness Time Seen by Provider: 05/02/21 15:55 Historian: patient Exam Limitations: no limitations Patient Subjective Stated Complaint: C/O headache, loose stools, and states he vomited earlier today. Patient states that his daughter call Dr. Dunne's office to update him on symptoms and Dr. Dunne told her to bring the patient to the ER. Triage Nursing Assessment: Daughter brought patient into ER. Patient wheeled back to room in a wheelchair. Patient assisted from chair to bed with minimal assistance of 1 staff. Hyperactive bowel sounds present. C/O pain with palpation to abdomen. Abdomen is large, round, soft. Lungs clear with diminished bases. Patient is hard of hearing. Denies chest pain. No SOB noted. Some edema noted to LLE. Denies visual changes. Physician History: Patient is an 89-year-old male who is extremely hard of hearing who presents by private vehicle from his home with a complaint of headache diarrhea and occasional vomiting over the last 24 hours. He also complains of some abdominal pain but he denies any chest pain or shortness of breath despite his history of COPD. He does have a low-grade fever upon arrival. Timing/Duration: yesterday Activities at Onset: none Quality: cramping Abdominal Pain Onset Location: generalized abdomen Pain Radiation: no radiation Severity of Pain-Max: moderate Severity of Pain-Current: moderate Modifying Factors: Improves With: nothing, defecating, vomiting Associated Symptoms: diarrhea, fever/chills, headache, nausea Previous symptoms: same symptoms as today Allergies/Adverse Reactions: aspirin Adverse Reaction (Verified 05/02/21 16:57) bleeding Home Medications: Allopurinol 100 mg [Zyloprim 100 mg] 100 mg PO DAILY 08/11/19 [History] Glimepiride 1 mg PO DAILY 08/11/19 [History] Sucralfate 1 gm [Carafate 1 GM] 1 gm PO BID 08/11/19 [History] Tamsulosin HCl 0.4 mg [Flomax 0.4 MG] 0.4 mg PO QHS 08/11/19 [History] clonazePAM [Clonazepam] 0.5 mg PO BID 08/19/19 [History] Gabapentin 100 mg PO TID 02/28/20 [History] Magnesium Oxide 400 mg [Mag-Ox 400] 400 mg PO DAILY 04/08/20 [History] Pantoprazole Sodium [Protonix] 40 mg PO DAILY 04/08/20 [History] Losartan Potassium [Cozaar] 50 mg PO DAILY 05/27/20 [History] Amlodipine Besylate 5 mg [Norvasc 5 mg] 5 mg PO BID 10/22/20 [History] Diphenhydramine HCl 25 mg [Benadryl 25 mg Capsule] 25 mg PO HS PRN PRN 01/29/21 [History] Metoprolol Tartrate 100 mg PO BID 02/13/21 [History] Levothyroxine Sodium 50 Mcg [Synthroid 50 Mcg] 50 mcg PO DAILY 03/26/21 [History] Hx Tetanus, Diphtheria Vaccination/Date Given: Yes Hx Influenza Vaccination/Date Given: Yes Hx Pneumococcal Vaccination/Date Given: Yes Immunizations Up to Date: Yes Travel Risk - International Travel Have you traveled outside of the country in past 3 weeks: No - Coronavirus Screening Are you exhibiting any of the following symptoms?: Yes Symptoms: Vomiting/Diarrhea, Headaches/Body Aches/Fatigue - Vaccine Status Have you recieved a Covid-19 vaccination: No - Review of Systems Constitutional: Fever, Chills Eyes: No Symptoms Ears, Nose, & Throat: No Symptoms Respiratory: No Cough, No Dyspnea Cardiac: No Chest Pain, No Edema, No Syncope Abdominal/Gastrointestinal: Abdominal Pain, Nausea, Vomiting, Diarrhea Genitourinary Symptoms: No Dysuria Musculoskeletal: No Back Pain, No Neck Pain Skin: No Rash Neurological: Headache, No Dizziness, No Focal Weakness, No Sensory Changes Psychological: No Symptoms Endocrine: No Symptoms All Other Systems: Reviewed and Negative - Past Medical History Pertinent Past Medical History: Yes Neurological History: TIA ENT History: No Pertinent History Cardiac History: Arrhythmia, High Cholesterol, Hypertension, Myocardial Infarction (DC) Respiratory History: Bronchitis Endocrine Medical History: Diabetes Type II Musculoskeletal History: Arthritis GI Medical History: GERD History: No Pertinent History Psycho-Social History: Anxiety Male Reproductive Disorders: Prostate Cancer Other Medical History: Gout, 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 - Past Surgical History Past Surgical History: Yes Neuro Surgical History: No Pertinent History Cardiac: No Pertinent History Respiratory: No Pertinent History Gastrointestinal: Hemorrhoidectomy Genitourinary: No Pertinent History Musculoskeletal: Orthopedic Surgery Male Surgical History: No Pertinent History Other Surgical History: LT ARM - Social History Smoking Status: Former smoker How long have you smoked: 15 years Exposure to second hand smoke: No Drug Use: none Patient Lives Alone: No (daughter) Significant Family History: no pertinent family hx - Nursing Vital Signs Nursing Vital Signs: Initial Vital Signs Temperature 99.1 F 05/02/21 15:52 Pulse Rate 75 05/02/21 15:52 Respiratory Rate 22 05/02/21 15:52 Blood Pressure 123/63 05/02/21 15:52 Pain Scale Pain Intensity 0 - Physical Exam General Appearance: no apparent distress, mild distress, alert Eye Exam: PERRL/EOMI, eyes nml inspection Ears, Nose, Throat Exam: normal ENT inspection, pharynx normal, moist mucous membranes Neck Exam: normal inspection, non-tender, supple, full range of motion Respiratory Exam: normal breath sounds, lungs clear, No respiratory distress Cardiovascular Exam: regular rate/rhythm, normal heart sounds Gastrointestinal/Abdomen Exam: tenderness, distention, No mass, No guarding, No rebound Back Exam: normal inspection, normal range of motion, No CVA tenderness, No vertebral tenderness Extremity Exam: normal inspection, normal range of motion, pelvis stable Neurologic Exam: alert, oriented x 3, cooperative, normal mood/affect, nml cerebellar function, sensation nml, No motor deficits Skin Exam: normal color, warm, dry SpO2 Interpretation: normal SpO2: 93 O2 Delivery: Room Air - Course Nursing assessment & vital signs reviewed: Yes EKG Interpreted by Me: RATE (73), NORMAL AXIS, prolonged QT interval, Non- specific ST Changes, Other (PVCs) Ordered Tests: Active Orders 24 hr Category Date Time Status EKG-ER Only STAT Care 05/02/21 16:15 Active IV Insertion STAT Care 05/02/21 16:15 Active ABDOMEN AND PELVIS W/0 CONTRAS [CT] Stat Exams 05/02/21 16:16 Ordered CHEST 1 VIEW (PORTABLE) Stat Exams 05/02/21 16:16 Ordered AMYLASE Stat Lab 05/02/21 16:34 Completed BLOOD CULTURE Stat Lab 05/02/21 16:42 Received CBC W DIFF Stat Lab 05/02/21 16:25 Completed CMP Stat Lab 05/02/21 16:34 Completed FECAL OCCULT BLOOD - SCREENING Stat Lab 05/02/21 16:15 Ordered LIPASE Stat Lab 05/02/21 16:34 Completed Lactic Acid Stat Lab 05/02/21 16:20 Completed Lactic Acid Stat Lab 05/02/21 18:27 Received Manual Differential NC Stat Lab 05/02/21 16:25 Completed PROTIME WITH INR Stat Lab 05/02/21 16:25 Completed TROPONIN Q3H Lab 05/02/21 16:25 Completed TROPONIN Q3H Lab 05/02/21 19:30 Ordered TROPONIN Q3H Lab 05/02/21 22:30 Ordered TROPONIN Q3H Lab 05/03/21 01:30 Ordered TROPONIN Q3H Lab 05/03/21 04:30 Ordered UA W/RFX UR CULTURE Stat Lab 05/02/21 18:24 Ordered Medication Summary Discontinued Medications Generic Name Dose Route Start Last Admin Trade Name Freq PRN Reason Stop Dose Admin Hydromorphone HCl 0.5 mg 05/02/21 16:15 05/02/21 16:44 Hydromorphone 1 Mg/Ml Injection IV 05/02/21 16:16 0.5 mg STAT ONE Administration Hydromorphone HCl Confirm 05/02/21 16:28 Hydromorphone 1 Mg/Ml Injection Administered 05/02/21 16:29 Dose 1 mg .ROUTE .STK-MED ONE Sodium Chloride 1,000 mls @ 999 mls/hr 05/02/21 16:15 05/02/21 17:46 Sodium Chloride 0.9% 1000 Ml IV 05/02/21 17:15 Infused .Q1H1M STA Infusion Sodium Chloride Confirm 05/02/21 16:28 Sodium Chloride 0.9% 1000 Ml Administered 05/02/21 16:29 Dose 1,000 mls @ ud .ROUTE .STK-MED ONE Ondansetron HCl 4 mg 05/02/21 16:15 05/02/21 16:44 Zofran 4 Mg/2 Ml Vial IV 05/02/21 16:16 4 mg STAT ONE Administration Ondansetron HCl Confirm 05/02/21 16:26 Zofran 4 Mg/2 Ml Vial Administered 05/02/21 16:27 Dose 4 mg .ROUTE .STK-MED ONE Pantoprazole Sodium 40 mg 05/02/21 16:15 05/02/21 16:44 Protonix 40 Mg Iv IV 05/02/21 16:16 40 mg STAT ONE Administration Pantoprazole Sodium Confirm 05/02/21 16:27 Protonix 40 Mg Iv Administered 05/02/21 16:28 Dose 40 mg IV .STK-MED ONE Lab/Rad Data: Laboratory Result Diagrams 05/02/21 16:25 05/02/21 16:34 Laboratory Results 05/02/21 05/02/21 05/02/21 Range/Units 16:34 16:25 16:25 WBC (4.0-10.5) K/mm3 RBC (4.1-5.6) M/mm3 Hgb (12.5-18.0) gm/dl Hct (42-50) % MCV (78-100) fl MCH (26-32) pg MCHC (32-36) g/dl RDW (11.5-14.0) % Plt Count (150-450) K/mm3 MPV (7.5-11.0) fl PT 13.5 H (9.4-12.5) SECONDS INR 1.14 (0.8-3.0) Sodium 138 (137-145) mmol/L Potassium 3.5 (3.5-5.1) mmol/L Chloride 106 (98-107) mmol/L Carbon Dioxide 19 L (22-30) mmol/L Anion Gap 16.2 H (5-15) MEQ/L BUN 19 (9-20) mg/dL Creatinine 1.59 H (0.66-1.25) mg/dL Estimated GFR 43.8 ML/MIN Glucose 122 H (74-106) mg/dL Lactic Acid (0.4-2.0) Calcium 8.5 (8.4-10.2) mg/dL Total Bilirubin 0.90 (0.2-1.3) mg/dL AST 16 L (17-59) U/L ALT 16 (0-50) U/L Alkaline Phosphatase 110 (38-126) U/L Troponin I < 0.012 (0.000-0.034) ng/mL Serum Total Protein 6.3 (6.3-8.2) g/dL Albumin 3.6 (3.5-5.0) g/dL Amylase 65 (30-110) U/L Lipase 26 (23-300) U/L 05/02/21 05/02/21 Range/Units 16:25 16:20 WBC 10.5 (4.0-10.5) K/mm3 RBC 4.15 (4.1-5.6) M/mm3 Hgb 10.8 L (12.5-18.0) gm/dl Hct 34.6 L (42-50) % MCV 83.4 (78-100) fl MCH 26.0 (26-32) pg MCHC 31.2 L (32-36) g/dl RDW 17.9 H (11.5-14.0) % Plt Count 143 L (150-450) K/mm3 MPV 10.7 (7.5-11.0) fl PT (9.4-12.5) SECONDS INR (0.8-3.0) Sodium (137-145) mmol/L Potassium (3.5-5.1) mmol/L Chloride (98-107) mmol/L Carbon Dioxide (22-30) mmol/L Anion Gap (5-15) MEQ/L BUN (9-20) mg/dL Creatinine (0.66-1.25) mg/dL Estimated GFR ML/MIN Glucose (74-106) mg/dL Lactic Acid 2.8 H (0.4-2.0) Calcium (8.4-10.2) mg/dL Total Bilirubin (0.2-1.3) mg/dL AST (17-59) U/L ALT (0-50) U/L Alkaline Phosphatase (38-126) U/L Troponin I (0.000-0.034) ng/mL Serum Total Protein (6.3-8.2) g/dL Albumin (3.5-5.0) g/dL Amylase (30-110) U/L Lipase (23-300) U/L - Departure Departure Disposition: Observation Clinical Impression: Dehydration, Abdominal pain, Diarrhea Condition: Stable Critical Care Time: No Referrals: CHANDANA DUNNE MD [Primary Care Provider] -
[2021-05-02 19:17] LABS: Appearance SLIGHTLY CLOUDY (CLEAR); Bilirubin NEGATIVE (NEGATIVE); Blood NEGATIVE Ery/ul (0-5); Glucose NEGATIVE (NEGATIVE); Ketones NEGATIVE (NEGATIVE); Leukocyte Esterase NEGATIVE (NEGATIVE); Mucus SLIGHT /HPF (NEGATIVE); Nitrite NEGATIVE (NEGATIVE); Protein,Urine Dip 30 (Negative); Specific Gravity 1.019 (1.005-1.025); Urobilinogen NEGATIVE mg/dL (0-1)
[2021-05-02 19:53] LABS: 027 TOX PROD PRESUMPTIVE NEGATIVE (NEGATIVE); TOXIGENIC C. DIFF ORG NEGATIVE (NEGATIVE)
[2021-05-02 20:34] LABS: Eosinophil 1 % (0.00-3.0); Lymphocytes 5 % (24-44); Monocyte 9 % (0.0-12.0); Neutrophils 85 % (36.-66.); Platelet Estimate NORMAL (NORMAL); Total Cells Counted 100
[2021-05-02 20:35] LABS: ANISOCYTOSIS 2+
[2021-05-02] MEDS ORDERED: TYLENOL 325 MG PO PRN (21:00)
[2021-05-02] MEDS: Sodium Chloride 0.9% 1000 ML 1,000 ML IV SCH (21:37)
[2021-05-02] MEDS: Lopressor 50 MG PO SCH (23:44)
[2021-05-02] MEDS: Neurontin 100 MG PO SCH (23:47)
[2021-05-03 05:03] LABS: Absolute Neutrophil Ct (ANC) 3.65 (1.4-6.9); BASOPHIL % 0.7 % (0.0-0.4); Basophil (Absolute #) 0.05 (0-0.4); Eosinophil % 2.2 % (0.00-5.0); Eosinophil (Absolute #) 0.15 (0-0.5); Hemoglobin 10.2 gm/dl (12.5-18.0); Lymphocyte (Absolute #) 1.83 (1.0-4.6); Lymphocytes % 27.1 % (24.0-44.0); Mean Cell Volume 84.4 fl (78-100); Mean Corpuscular Hemoglobin 25.3 pg (26-32); Mean Platelet Volume 10.3 fl (7.5-11.0); Monocyte (Absolute #) 1.08 (0.0-1.3); Platelet Count 135 K/mm3 (150-450); Red Blood Count 4.03 M/mm3 (4.1-5.6); Red Cell Distribution Width 17.9 % (11.5-14.0); White Blood Count 6.8 K/mm3 (4.0-10.5)
[2021-05-03 05:26] LABS: ALBUMIN 3.6 g/dL (3.5-5.0); BILIRUBIN,TOTAL 0.7 mg/dL (0.2-1.3); Calcium 7.8 mg/dL (8.4-10.2); Creatinine 1 1.34 mg/dL (0.66-1.25); EST GLOMERULAR FILTRATION RATE 53.3 ML/MIN; Potassium 3.6 mmol/L (3.5-5.1); Total Protein 6.4 g/dL (6.3-8.2)
[2021-05-03] MEDS: Sodium Chloride 0.9% 1000 ML 1,000 ML IV SCH ×2 (07:32→17:22)
--- NOTE | 2021-05-03 08:37 | XRAY ---
Indication: Abdomen pain, diarrhea, and weakness. Multiple contiguous axial images obtained through the abdomen and pelvis without contrast. Comparison: June 30, 2020. There is diffuse respiration artifact. Lung bases again demonstrates bibasilar subsegmental atelectasis/scarring without focal infiltrate or effusion. Heart borderline enlarged. Stable moderate-sized hiatal hernia with partial intrathoracic stomach. Noncontrasted stomach and bowel loops appear nonobstructed. Normal appendix. Again minimal scattered colonic diverticulosis. No free fluid/air. Stable left renal scarring and enlarged prostate gland. Remaining liver, gallbladder, pancreas, spleen, adrenal glands, kidneys, ureters, and bladder are grossly unremarkable for noncontrast exam. There remains mild scattered aortoiliac calcification is without AAA. Osseous structures intact again with osteopenia, mild/moderate multilevel degenerative spondylosis, and mild bilateral hip degenerative arthropathy. 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 Impression: 1. Respiration artifact throughout. 2. Again hiatal hernia with partial intrathoracic stomach, colonic diverticulosis, left renal scarring, colonic diverticulosis, chronic bony findings, and right sartorius/left rectus femoris intramuscular lipomas. 3. Remaining CT abdomen/pelvis without contrast exam is grossly negative.
--- NOTE | 2021-05-03 08:49 | XRAY ---
Indication: Abdomen pain, diarrhea, and weakness. Comparison: March 26, 2021. Portable chest better inflated again with a few tiny calcified granulomas. No focal infiltrate, consolidation, or large effusion. Heart and mediastinal structures within normal limits. Bony thorax intact again with mild osteopenia and degenerative changes. Impression: Nonacute chest with chronic features.
[2021-05-03] MEDS: Lopressor 50 MG PO SCH ×3 (09:53→21:39)
[2021-05-03] MEDS: Neurontin 100 MG PO SCH ×3 (09:54→21:40)
[2021-05-03] MEDS ORDERED: PROTONIX 40 MG IV IV SCH (11:00)
[2021-05-03] MEDS: Zofran 4 MG/2 ML VIAL IV PRN ×2 (11:17→19:47)
[2021-05-03] MEDS ORDERED: PROVENTIL Solution 2.5 MG/0.5 ML IH PRN (12:35)
[2021-05-03] MEDS ORDERED: VITAMIN D PO SCH ×2 (13:00→22:00)
[2021-05-03] MEDS: Amaryl 2 MG PO SCH (13:04)
[2021-05-03] MEDS: Carafate 1 GM PO SCH ×2 (13:04→16:04)
[2021-05-03] MEDS: Cozaar 50 MG PO SCH (13:06)
[2021-05-03] MEDS: MAG-OX 400 PO SCH (13:06)
[2021-05-03] MEDS: ZYLOPRIM 100 MG PO SCH (13:06)
[2021-05-03] MEDS: SYNTHROID 50 MCG PO SCH (13:07)
[2021-05-03] MEDS: clonazePAM PO SCH ×2 (13:07→21:38)
[2021-05-03] MEDS ORDERED: Flomax 0.4 MG PO SCH ×3 (22:00)
--- NOTE | 2021-05-03 23:23 | PCM.HP ---
History of Present Illness - Chief Complaint Chief Complaint: c/o diarrhea for 1-2 days History of Present Illness: is a 89 year old male. presents by private vehicle from his home with a complaint of headache diarrhea and occasional vomiting over the last 24 hours. He also complains of some abdominal pain but he denies any chest pain or shortness of breath despite his history of COPD. He did have a low-grade fever upon arrival. - Review of Systems Constitutional: Fever, Weakness, No Chills Eyes: No Symptoms Ears, Nose, & Throat: No Symptoms Respiratory: No Cough, No Short Of Breath Cardiac: No Chest Pain, No Edema, No Syncope Abdominal/Gastrointestinal: Vomiting, Diarrhea, No Abdominal Pain, No Nausea Genitourinary Symptoms: No Dysuria Musculoskeletal: No Back Pain, No Neck Pain Skin: No Rash Neurological: No Dizziness, No Focal Weakness, No Sensory Changes Psychological: No Symptoms Endocrine: No Symptoms Hematologic/Lymphatic: No Symptoms Immunological/Allergic: No Symptoms Medications & Allergies Home Medications: Home Medication List Allopurinol 100 mg [Zyloprim 100 mg] 100 mg PO DAILY 08/11/19 [History Confirmed 05/02/21] Glimepiride 1 mg PO DAILY 08/11/19 [History Confirmed 05/02/21] Sucralfate 1 gm [Carafate 1 GM] 1 gm PO TIDWM 08/11/19 [History Confirmed 05/02/21] Tamsulosin HCl 0.4 mg [Flomax 0.4 MG] 0.4 mg PO QHS 08/11/19 [History Confirmed 05/02/21] clonazePAM [Clonazepam] 0.5 mg PO BID 08/19/19 [History Confirmed 05/02/21] Gabapentin 100 mg PO TID 02/28/20 [History Confirmed 05/02/21] Magnesium Oxide 400 mg [Mag-Ox 400] 400 mg PO DAILY 04/08/20 [History Confirmed 05/02/21] Pantoprazole Sodium [Protonix] 40 mg PO DAILY 04/08/20 [History Confirmed 05/02/21] Losartan Potassium [Cozaar] 50 mg PO DAILY 05/27/20 [History Confirmed 05/02/21] Metoprolol Tartrate 100 mg PO BID 02/13/21 [History Confirmed 05/02/21] Levothyroxine Sodium 50 Mcg [Synthroid 50 Mcg] 50 mcg PO DAILY 03/26/21 [History Confirmed 05/02/21] Albuterol 2.5 mg/0.5 ml [PROVENTIL Solution 2.5 MG/0.5 ML] 2.5 mg IH Q6H PRN PRN 05/03/21 [History Confirmed 05/03/21] Cholecalciferol (Vitamin D3) [Vitamin D] 1,000 unit PO HS 05/03/21 [History Confirmed 05/03/21] Allergies/Adverse Reactions: Allergies Allergy/AdvReac Type Severity Reaction Status Date / Time aspirin AdvReac Verified 05/02/21 16:57 - Past Medical History Past Medical History: Yes Neurological History: TIA ENT History: No Pertinent History Cardiac History: Arrhythmia, High Cholesterol, Hypertension, Myocardial Infarction ([place]) Respiratory History: Bronchitis Endocrine Medical History: Diabetes Type II Musculoskelatal History: Arthritis GI Medical History: GERD History: No Pertinent History Pyscho-Social History: Anxiety Male Reproductive Disorders: Prostate Cancer Comment: Gout, 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 - Past Surgical History Past Surgical History: Yes Neuro Surgical History: No Pertinent History Cardiac History: No Pertinent History Respiratory Surgery: No Pertinent History GI Surgical History: Hemorrhoidectomy Genitourinary Surgical Hx: No Pertinent History Musculskeletal Surgical Hx: Orthopedic Surgery Male Surgical History: No Pertinent History Other Surgical History: LT ARM - Social History Smoking Status: Former smoker How long have you smoked: 15 years Exposure to second hand smoke: No Alcohol: None Drug Use: none Significant Family History: no pertinent family hx - Physical Exam Vital Signs: Vital Signs - 24 hr Temp Pulse Resp BP Pulse Ox 05/03/21 20:00 75 16 97 05/03/21 19:51 97.4 F 66 18 150/74 97 05/03/21 16:00 97.3 F 68 16 143/62 97 05/03/21 14:57 87 18 95 05/03/21 11:21 97.7 F 105 H 16 147/69 93 L 05/03/21 07:52 97.7 F 70 16 189/85 96 05/03/21 04:09 97.6 F 73 20 180/86 96 General Appearance: mild distress, alert Neurologic Exam: alert, oriented x 3, cooperative, sensation nml, No motor deficits Eye Exam: PERRL/EOMI, eyes nml inspection Ears, Nose, Throat Exam: normal ENT inspection, TMs normal, pharynx normal, moist mucous membranes Neck Exam: normal inspection, non-tender, supple, full range of motion Respiratory Exam: normal breath sounds, lungs clear, No respiratory distress Cardiovascular Exam: regular rate/rhythm, normal heart sounds, normal peripheral pulses Gastrointestinal/Abdomen Exam: soft, normal bowel sounds, No tenderness, No mass Back Exam: normal inspection, normal range of motion, No CVA tenderness, No vertebral tenderness Extremity Exam: normal inspection, normal range of motion, pelvis stable Skin Exam: normal color, warm, dry, No rash Lymphatic Exam: No adenopathy Results - Labs Lab/Micro Results: Lab Results-Last 24 Hours 05/03/21 05/03/21 05/03/21 Range/Units 01:30 04:20 04:20 WBC 6.8 (4.0-10.5) K/mm3 RBC 4.03 L (4.1-5.6) M/mm3 Hgb 10.2 L (12.5-18.0) gm/dl Hct 34.0 L (42-50) % MCV 84.4 (78-100) fl MCH 25.3 L (26-32) pg MCHC 30.0 L (32-36) g/dl RDW 17.9 H (11.5-14.0) % Plt Count 135 L (150-450) K/mm3 MPV 10.3 (7.5-11.0) fl Gran % 54.0 (36.0-66.0) % Eos # (Auto) 0.15 (0-0.5) Absolute Lymphs (auto) 1.83 (1.0-4.6) Absolute Monos (auto) 1.08 (0.0-1.3) Lymphocytes % 27.1 (24.0-44.0) % Monocytes % 16.0 H (0.0-12.0) % Eosinophils % 2.2 (0.00-5.0) % Basophils % 0.7 (0.0-0.4) % Absolute Granulocytes 3.65 (1.4-6.9) Basophils # 0.05 (0-0.4) Sodium 138 (137-145) mmol/L Potassium 3.6 (3.5-5.1) mmol/L Chloride 108 H (98-107) mmol/L Carbon Dioxide 20 L (22-30) mmol/L Anion Gap 14.0 (5-15) MEQ/L BUN 20 (9-20) mg/dL Creatinine 1.34 H (0.66-1.25) mg/dL Estimated GFR 53.3 ML/MIN Glucose 105 (74-106) mg/dL POC Glucometer (74 to 106) mg/dL Calcium 7.8 L (8.4-10.2) mg/dL Total Bilirubin 0.70 (0.2-1.3) mg/dL AST 20 (17-59) U/L ALT 16 (0-50) U/L Alkaline Phosphatase 114 (38-126) U/L Troponin I < 0.012 (0.000-0.034) ng/mL Serum Total Protein 6.4 (6.3-8.2) g/dL Albumin 3.6 (3.5-5.0) g/dL 05/03/21 05/03/21 05/03/21 Range/Units 04:20 11:16 16:24 WBC (4.0-10.5) K/mm3 RBC (4.1-5.6) M/mm3 Hgb (12.5-18.0) gm/dl Hct (42-50) % MCV (78-100) fl MCH (26-32) pg MCHC (32-36) g/dl RDW (11.5-14.0) % Plt Count (150-450) K/mm3 MPV (7.5-11.0) fl Gran % (36.0-66.0) % Eos # (Auto) (0-0.5) Absolute Lymphs (auto) (1.0-4.6) Absolute Monos (auto) (0.0-1.3) Lymphocytes % (24.0-44.0) % Monocytes % (0.0-12.0) % Eosinophils % (0.00-5.0) % Basophils % (0.0-0.4) % Absolute Granulocytes (1.4-6.9) Basophils # (0-0.4) Sodium (137-145) mmol/L Potassium (3.5-5.1) mmol/L Chloride (98-107) mmol/L Carbon Dioxide (22-30) mmol/L Anion Gap (5-15) MEQ/L BUN (9-20) mg/dL Creatinine (0.66-1.25) mg/dL Estimated GFR ML/MIN Glucose (74-106) mg/dL POC Glucometer 141 H 138 H (74 to 106) mg/dL Calcium (8.4-10.2) mg/dL Total Bilirubin (0.2-1.3) mg/dL AST (17-59) U/L ALT (0-50) U/L Alkaline Phosphatase (38-126) U/L Troponin I < 0.012 (0.000-0.034) ng/mL Serum Total Protein (6.3-8.2) g/dL Albumin (3.5-5.0) g/dL Microbiology 05/02/21 18:24 Urine Culture - Preliminary Catherized NO GROWTH TO DATE Accuchecks Date 05/03/21 Date 05/03/21 Date 05/03/21 Time 16:29 Time 11:21 Time 07:51 - Radiology Impressions Radiology Exams & Impressions: Radiology Procedures Category Date Time Status ABDOMEN AND PELVIS W/0 CONTRAS [CT] Stat Exams 05/02/21 16:16 Completed CHEST 1 VIEW (PORTABLE) Stat Exams 05/02/21 16:16 Completed - Other Procedures and Tests Respiratory Therapy 05/03/21 14:57 Respiratory Therapy Assessment DAILY Assessment/Plan (1) Abdominal pain Current Visit: Yes Status: Acute Qualifiers: Abdominal location: generalized Qualified Code(s): R10.84 - Generalized abdominal pain Assessment & Plan: Chief Complaint Diagnosis Dehydration, diarrhea Allergies Allergy/AdvReac Type Severity Reaction Status Date / Time aspirin AdvReac Verified 05/02/21 16:57 Vital Signs (Last 24 hours) Temp Pulse Resp BP Pulse Ox 05/03/21 20:00 75 16 97 05/03/21 19:51 97.4 F 66 18 150/74 97 05/03/21 16:00 97.3 F 68 16 143/62 97 05/03/21 14:57 87 18 95 05/03/21 11:21 97.7 F 105 H 16 147/69 93 L 05/03/21 07:52 97.7 F 70 16 189/85 96 05/03/21 04:09 97.6 F 73 20 180/86 96 Home Medications Medication Instructions Recorded Confirmed Last Taken Type Albuterol 2.5 mg/0.5 ml 2.5 mg IH Q6H PRN PRN 05/03/21 05/03/21 Unknown History [PROVENTIL Solution 2.5 MG/0.5 ML] Cholecalciferol (Vitamin D3) 1,000 unit PO HS 05/03/21 05/03/21 Unknown History [Vitamin D] Current Medications Generic Name Dose Route Start Last Admin Trade Name Freq PRN Reason Stop Dose Admin Acetaminophen 650 mg 05/02/21 21:00 Tylenol 325 Mg PO 06/01/21 20:59 Q4H PRN PRN PAIN AND/OR FEVER Albuterol Sulfate 2.5 mg 05/03/21 12:35 Proventil Solution 2.5 Mg/0.5 Ml IH 06/02/21 12:34 Q6H PRN PRN Wheezing Allopurinol 100 mg 05/03/21 13:00 05/03/21 13:06 Zyloprim 100 Mg PO 06/02/21 12:59 100 mg DAILY DRAKE Administration Cholecalciferol 1,000 unit 05/03/21 22:00 05/03/21 21:40 Vitamin D PO 06/02/21 21:59 1,000 unit HS DRAKE Administration Clonazepam 0.5 mg 05/03/21 13:00 05/03/21 21:38 Clonazepam PO 06/02/21 12:59 0.5 mg BID DRAKE Administration Gabapentin 100 mg 05/03/21 00:00 05/03/21 21:40 Neurontin 100 Mg PO 06/02/21 00:00 100 mg TID DRAKE Administration Glimepiride 1 mg 05/03/21 13:00 05/03/21 13:04 Amaryl 2 Mg PO 06/02/21 12:59 1 mg DAILY DRAKE Administration Sodium Chloride 1,000 mls @ 100 mls/hr 05/02/21 21:00 05/03/21 17:22 Sodium Chloride 0.9% 1000 Ml IV 06/01/21 20:59 100 mls/hr .Q10H DRAKE Administration Levothyroxine Sodium 50 mcg 05/03/21 13:00 05/03/21 13:07 Synthroid 50 Mcg PO 06/02/21 12:59 50 mcg DAILY DRAKE Administration Losartan Potassium 50 mg 05/03/21 13:00 05/03/21 13:06 Cozaar 50 Mg PO 06/02/21 12:59 50 mg DAILY DRAKE Administration Magnesium Oxide 400 mg 05/03/21 13:00 05/03/21 13:06 Mag-Ox 400 PO 06/02/21 12:59 400 mg DAILY DRAKE Administration Metoprolol Tartrate 100 mg 05/03/21 13:00 05/03/21 21:39 Lopressor 50 Mg PO 06/02/21 12:59 100 mg BID DRAKE Administration Ondansetron HCl 4 mg 05/03/21 10:46 05/03/21 19:47 Zofran 4 Mg/2 Ml Vial IV 06/02/21 10:45 4 mg Q6H PRN PRN Administration NAUSEA/VOMITING Pantoprazole Sodium 40 mg 05/04/21 10:00 Protonix 40 Mg Iv IV 06/03/21 09:59 Q24H DRAKE Sucralfate 1 g 05/03/21 13:00 05/03/21 16:04 Carafate 1 Gm PO 06/02/21 12:59 1 g TIDWM DRAKE Administration Tamsulosin HCl 0.4 mg 05/03/21 22:00 05/03/21 21:38 Flomax 0.4 Mg PO 06/02/21 21:59 0.4 mg HS DRAKE Administration Discontinued Medications Generic Name Dose Route Start Last Admin Trade Name Freq PRN Reason Stop Dose Admin Cholecalciferol 1,000 unit 05/03/21 13:00 Vitamin D PO 06/02/21 12:59 HS DRAKE Hydromorphone HCl 0.5 mg 05/02/21 16:15 05/02/21 16:44 Hydromorphone 1 Mg/Ml Injection IV 05/02/21 16:16 0.5 mg STAT ONE Administration Hydromorphone HCl Confirm 05/02/21 16:28 Hydromorphone 1 Mg/Ml Injection Administered 05/02/21 16:29 Dose 1 mg .ROUTE .STK-MED ONE Sodium Chloride 1,000 mls @ 999 mls/hr 05/02/21 16:15 05/02/21 17:46 Sodium Chloride 0.9% 1000 Ml IV 05/02/21 17:15 Infused .Q1H1M STA Infusion Sodium Chloride Confirm 05/02/21 16:28 Sodium Chloride 0.9% 1000 Ml Administered 05/02/21 16:29 Dose 1,000 mls @ ud .ROUTE .STK-MED ONE Metoprolol Tartrate 100 mg 05/03/21 00:00 05/03/21 09:53 Lopressor 50 Mg PO 06/02/21 00:00 100 mg BID DRAKE Administration Ondansetron HCl 4 mg 05/02/21 16:15 05/02/21 16:44 Zofran 4 Mg/2 Ml Vial IV 05/02/21 16:16 4 mg STAT ONE Administration Ondansetron HCl Confirm 05/02/21 16:26 Zofran 4 Mg/2 Ml Vial Administered 05/02/21 16:27 Dose 4 mg .ROUTE .STK-MED ONE Pantoprazole Sodium 40 mg 05/02/21 16:15 05/02/21 16:44 Protonix 40 Mg Iv IV 05/02/21 16:16 40 mg STAT ONE Administration Pantoprazole Sodium Confirm 05/02/21 16:27 Protonix 40 Mg Iv Administered 05/02/21 16:28 Dose 40 mg IV .STK-MED ONE Pantoprazole Sodium 40 mg 05/03/21 11:00 05/03/21 11:08 Protonix 40 Mg Iv IV 06/02/21 10:59 40 mg Q24H DRAKE Administration Pantoprazole Sodium 40 mg 05/04/21 10:00 Protonix 40mg Tablet PO 06/03/21 09:59 DAILY DRAKE Tamsulosin HCl 0.4 mg 05/03/21 22:00 Flomax 0.4 Mg PO 06/02/21 21:59 HS DRAKE Tamsulosin HCl 0.4 mg 05/03/21 00:00 05/02/21 23:47 Flomax 0.4 Mg PO 06/02/21 00:00 Not Given HS DRAKE Intake & Output (Last 24 hours) 0905/02/21 05/03/21 05/04/21 11:59 11:59 11:59 11:59 Intake Total 802 2451 Balance 802 2451 Weight 85 kg Microbiology Results (Last 24 hours) 05/02/21 18:24 Catherized Urine Culture - Preliminary NO GROWTH TO DATE Laboratory Results (Last 24 hours) 05/03/21 05/03/21 05/03/21 16:24 11:16 04:20 WBC RBC Hgb Hct MCV MCH MCHC RDW Plt Count MPV Gran % Eos # (Auto) Absolute Lymphs (auto) Absolute Monos (auto) Lymphocytes % Monocytes % Eosinophils % Basophils % Absolute Granulocytes Basophils # Sodium Potassium Chloride Carbon Dioxide Anion Gap BUN Creatinine Estimated GFR Glucose POC Glucometer 138 H 141 H Calcium Total Bilirubin AST ALT Alkaline Phosphatase Troponin I < 0.012 Serum Total Protein Albumin 05/03/21 05/03/21 05/03/21 04:20 04:20 01:30 WBC 6.8 RBC 4.03 L Hgb 10.2 L Hct 34.0 L MCV 84.4 MCH 25.3 L MCHC 30.0 L RDW 17.9 H Plt Count 135 L MPV 10.3 Gran % 54.0 Eos # (Auto) 0.15 Absolute Lymphs (auto) 1.83 Absolute Monos (auto) 1.08 Lymphocytes % 27.1 Monocytes % 16.0 H Eosinophils % 2.2 Basophils % 0.7 Absolute Granulocytes 3.65 Basophils # 0.05 Sodium 138 Potassium 3.6 Chloride 108 H Carbon Dioxide 20 L Anion Gap 14.0 BUN 20 Creatinine 1.34 H Estimated GFR 53.3 Glucose 105 POC Glucometer Calcium 7.8 L Total Bilirubin 0.70 AST 20 ALT 16 Alkaline Phosphatase 114 Troponin I < 0.012 Serum Total Protein 6.4 Albumin 3.6 Orders (Last 24 hours) Category Date Time Status Miscellaneous Nursing Order ROUTINE Care 05/02/21 23:15 Active Soft Diet Diet 05/03/21 Breakfast Active CBC W DIFF AM.LAB Lab 05/03/21 04:20 Completed CMP AM.LAB Lab 05/03/21 04:20 Completed POCT GLUCOSE Stat Lab 05/03/21 11:16 Completed POCT GLUCOSE Stat Lab 05/03/21 16:24 Completed TROPONIN Q3H Lab 05/02/21 22:48 Completed TROPONIN Q3H Lab 05/03/21 01:30 Completed TROPONIN Q3H Lab 05/03/21 04:20 Completed Albuterol 2.5 mg/0.5 ml [PROVENTIL Solution 2.5 MG/0 Med 05/03/21 12:35 Active .5 ML] 2.5 mg IH Q6H PRN PRN Allopurinol 100 mg [Zyloprim 100 mg] Med 05/03/21 13:00 Active 100 mg PO DAILY Cholecalciferol (Vitamin D3) [Vitamin D] Med 05/03/21 13:00 Discontinued 1,000 unit PO HS Cholecalciferol (Vitamin D3) [Vitamin D] Med 05/03/21 22:00 Active 1,000 unit PO HS Gabapentin 100 mg [Neurontin 100 MG] Med 05/03/21 00:00 Active 100 mg PO TID Glimepiride 2 mg [Amaryl 2 MG] Med 05/03/21 13:00 Active 1 mg PO DAILY Levothyroxine Sodium 50 Mcg [Synthroid 50 Mcg] Med 05/03/21 13:00 Active 50 mcg PO DAILY Losartan Potassium 50 mg [Cozaar 50 MG] Med 05/03/21 13:00 Active 50 mg PO DAILY Magnesium Oxide 400 mg [Mag-Ox 400] Med 05/03/21 13:00 Active 400 mg PO DAILY Metoprolol Tartrate 50 mg [Lopressor 50 MG] Med 05/03/21 00:00 Discontinued 100 mg PO BID Metoprolol Tartrate 50 mg [Lopressor 50 MG] Med 05/03/21 13:00 Active 100 mg PO BID Ondansetron HCl 4 mg/2 ml [Zofran 4 MG/2 ML VIAL] Med 05/03/21 10:46 Active 4 mg IV Q6H PRN PRN PANTOPRAZOLE 40 mg Tablet [Protonix 40MG Tablet] Med 05/04/21 10:00 Discontinued 40 mg PO DAILY Pantoprazole 40 mg [Protonix 40 mg IV] Med 05/03/21 11:00 Discontinued 40 mg IV Q24H Pantoprazole 40 mg [Protonix 40 mg IV] Med 05/04/21 10:00 Active 40 mg IV Q24H Sucralfate 1 gm [Carafate 1 GM] Med 05/03/21 13:00 Active 1 g PO TIDWM Tamsulosin HCl 0.4 mg [Flomax 0.4 MG] Med 05/03/21 00:00 Discontinued 0.4 mg PO HS Tamsulosin HCl 0.4 mg [Flomax 0.4 MG] Med 05/03/21 22:00 Active 0.4 mg PO HS Tamsulosin HCl 0.4 mg [Flomax 0.4 MG] Med 05/03/21 22:00 Discontinued 0.4 mg PO HS clonazePAM Med 05/03/21 13:00 Active 0.5 mg PO BID Pulse Oximetry .spot check RT 05/03/21 21:27 Active Respiratory Therapy Assessment DAILY RT 05/03/21 14:57 Active Code(s): R10.9 - UNSPECIFIED ABDOMINAL PAIN (2) Dehydration Current Visit: Yes Status: Acute Code(s): E86.0 - DEHYDRATION (3) Diarrhea Current Visit: Yes Status: Acute Code(s): R19.7 - DIARRHEA, UNSPECIFIED
[2021-05-04] MEDS: Zofran 4 MG/2 ML VIAL IV PRN ×2 (02:17→10:44)
[2021-05-04] MEDS: Sodium Chloride 0.9% 1000 ML 1,000 ML IV SCH (02:26)
[2021-05-04] MEDS: Carafate 1 GM PO SCH ×2 (09:02→13:23)
[2021-05-04 09:33] VITALS: PULSE 72; O2SAT 95
[2021-05-04] MEDS ORDERED: PROTONIX 40 MG IV IV SCH (10:00)
[2021-05-04] MEDS ORDERED: Protonix 40MG Tablet PO SCH (10:00)
[2021-05-04] MEDS ORDERED: PANTOPRAZOLE SODIUM 40 MG PO SCH (10:00)
[2021-05-04] MEDS ORDERED: NON-FORMULARY ITEM (Losartan Potassium [Cozaar] 50 MG) PO SCH (10:00)
[2021-05-04] MEDS ORDERED: NON-FORMULARY ITEM (Glimepiride [Glimepiride] 1 MG) PO SCH (10:00)
[2021-05-04] MEDS: Cozaar 50 MG PO SCH (10:33)
[2021-05-04] MEDS: Neurontin 100 MG PO SCH ×2 (10:33→14:02)
[2021-05-04] MEDS: Lopressor 50 MG PO SCH (10:33)
[2021-05-04] MEDS: ZYLOPRIM 100 MG PO SCH (10:33)
[2021-05-04] MEDS: Amaryl 2 MG PO SCH (10:33)
[2021-05-04] MEDS: SYNTHROID 50 MCG PO SCH (10:33)
[2021-05-04] MEDS: clonazePAM PO SCH (10:33)
[2021-05-04] MEDS: MAG-OX 400 PO SCH (10:34)
[2021-05-04] MEDS ORDERED: IMODIUM 2 MG PO PRN (12:15)
[2021-05-04 12:21] VITALS: BP 162/73
[2021-05-04] MEDS ORDERED: Flagyl 500 MG PO SCH (15:00)
== END 2021-05-04 16:30 | disposition home or self-care (01) ==
LOC: ED 15:39 → MED SURG 20:59
PROVIDERS: ADMIT General Practice; ATTEND General Practice
DX: R10.84 Generalized abdominal pain (principal); R51.9 Headache, unspecified; R19.7 Diarrhea, unspecified; E86.0 Dehydration; R11.2 Nausea with vomiting, unspecified; E11.9 Type 2 diabetes mellitus without complications; I10 Essential (primary) hypertension; R50.9 Fever, unspecified; Z79.899 Other long term (current) drug therapy; I25.2 Old myocardial infarction; Z86.73 Personal history of transient ischemic attack (TIA), and cerebral infarction without residual deficits; Z20.822 Contact with and (suspected) exposure to COVID-19
CPT/HCPCS: 36000; 36415; 71045; 74176; 80053; 81001; 82150; 82947; 83605; 83690; 84484; 85025; 85610; 87040; 87045; 87046; 87086; 87493; 93005; 93268; 94760; 96360; 96374; 96375; 99285; G0328; G0378; U0003; 82274; J1170; J2405; A9270-GY

== ENCOUNTER 2021-05-05 19:29 | Inpatient (IN) | payer MEDICARE ==
--- NOTE | 2021-05-05 19:44 | ERPHSYRPT ---
- History of Present Illness Time Seen by Provider: 05/05/21 19:36 Historian: patient, family Exam Limitations: no limitations Patient Subjective Stated Complaint: "Well my chest was hurting today." Triage Nursing Assessment: . Physician History: 89 years old male with history of hypertension, hyperlipidemia, diabetes m alma who was recently admitted at this hospital with nausea vomiting, was discharged day before yesterday presented with off-and-on chest pain all day long which got worse after having supper. Reports moderate intensity dull aching pressure sensation in the center without any significant aggravating or relieving factors. On presentation in the ER his chest pain is much improved and currently rates 12/10 intensity without any obvious difficulty breathing. Denies any palpitations, fever chills or cough. Patient is allergic to aspirin. Timing/Duration: today Activities at Onset: rest Quality: aching, dullness, pressure Location: substernal Chest Pain Radiation: no radiation Severity of Pain-Max: moderate Severity of Pain-Current: mild Modifying Factors: Improves With: nothing Associated Symptoms: denies symptoms Nitro Today/Relief: no nitro taken today Aspirin Treatment Today: no aspirin today Allergies/Adverse Reactions: aspirin Adverse Reaction (Verified 05/02/21 16:57) bleeding Home Medications: Allopurinol 100 mg [Zyloprim 100 mg] 100 mg PO DAILY 08/11/19 [History] Glimepiride 1 mg PO DAILY 08/11/19 [History] Sucralfate 1 gm [Carafate 1 GM] 1 gm PO TIDWM 08/11/19 [History] Tamsulosin HCl 0.4 mg [Flomax 0.4 MG] 0.4 mg PO QHS 08/11/19 [History] clonazePAM [Clonazepam] 0.5 mg PO BID 08/19/19 [History] Gabapentin 100 mg PO TID 02/28/20 [History] Magnesium Oxide 400 mg [Mag-Ox 400] 400 mg PO DAILY 04/08/20 [History] Pantoprazole Sodium [Protonix] 40 mg PO DAILY 04/08/20 [History] Losartan Potassium [Cozaar] 50 mg PO DAILY 05/27/20 [History] Metoprolol Tartrate 100 mg PO BID 02/13/21 [History] Levothyroxine Sodium 50 Mcg [Synthroid 50 Mcg] 50 mcg PO DAILY 03/26/21 [History] Albuterol 2.5 mg/0.5 ml [PROVENTIL Solution 2.5 MG/0.5 ML] 2.5 mg IH Q6H PRN PRN 05/03/21 [History] Cholecalciferol (Vitamin D3) [Vitamin D] 1,000 unit PO HS 05/03/21 [History] Hx Tetanus, Diphtheria Vaccination/Date Given: Yes Hx Influenza Vaccination/Date Given: No Hx Pneumococcal Vaccination/Date Given: Yes Travel Risk - International Travel Have you traveled outside of the country in past 3 weeks: No - Coronavirus Screening Are you exhibiting any of the following symptoms?: No Close contact with a COVID-19 positive Pt in past 14-21 Days: No - Vaccine Status Have you recieved a Covid-19 vaccination: No - Review of Systems Constitutional: Fatigue, Weakness Eyes: No Symptoms Ears, Nose, & Throat: No Symptoms Respiratory: No Symptoms Cardiac: Chest Pain Abdominal/Gastrointestinal: No Symptoms Genitourinary Symptoms: No Symptoms Musculoskeletal: Myalgias Skin: No Symptoms Neurological: No Symptoms Psychological: No Symptoms Endocrine: No Symptoms Hematologic/Lymphatic: No Symptoms Immunological/Allergic: No Symptoms - Past Medical History Pertinent Past Medical History: Yes Neurological History: TIA ENT History: No Pertinent History Cardiac History: Arrhythmia, High Cholesterol, Hypertension, Myocardial Infarction ([place]) Respiratory History: Bronchitis Endocrine Medical History: Diabetes Type II Musculoskeletal History: Arthritis GI Medical History: GERD History: No Pertinent History Psycho-Social History: Anxiety Male Reproductive Disorders: Prostate Cancer Other Medical History: Gout, 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 - Past Surgical History Past Surgical History: Yes Neuro Surgical History: No Pertinent History Cardiac: No Pertinent History Respiratory: No Pertinent History Gastrointestinal: Hemorrhoidectomy Genitourinary: No Pertinent History Musculoskeletal: Orthopedic Surgery Male Surgical History: No Pertinent History Other Surgical History: LT ARM - Social History Smoking Status: Former smoker How long have you smoked: 15 years Exposure to second hand smoke: Yes (DAUGHTER) Drug Use: none Patient Lives Alone: No Significant Family History: no pertinent family hx - Nursing Vital Signs Nursing Vital Signs: Initial Vital Signs Temperature 99.9 F 05/05/21 19:29 Pulse Rate 88 05/05/21 19:29 Respiratory Rate 16 05/05/21 19:29 O2 Sat by Pulse Oximetry 97 05/05/21 19:29 Pain Scale Pain Intensity 0 - Physical Exam General Appearance: no apparent distress, alert Eye Exam: PERRL/EOMI Ears, Nose, Throat Exam: normal ENT inspection, pharynx normal Neck Exam: normal inspection, supple, full range of motion Respiratory Exam: rhonchi, No respiratory distress, No accessory muscle use Cardiovascular Exam: regular rate/rhythm, normal heart sounds Gastrointestinal/Abdomen Exam: soft, normal bowel sounds, No tenderness Back Exam: normal inspection Extremity Exam: normal inspection, normal range of motion Neurologic Exam: alert, oriented x 3, cooperative, 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 as tested Skin Exam: normal color SpO2 Interpretation: normal SpO2: 97 O2 Delivery: Room Air - Course EKG Interpreted by Me: RATE (91), Sinus Rhythm, NORMAL AXIS, NORMAL INTERVALS, Other (LVH pattern) Ordered Tests: Active Orders 24 hr Category Date Time Status Developer Prover Mechanical STAT Care 05/05/21 19:40 Active EKG-ER Only STAT Care 05/05/21 19:40 Active IV Insertion STAT Care 05/05/21 19:40 Active Pulse Oximetry (ED) STAT Care 05/05/21 19:40 Active CHEST 1 VIEW (PORTABLE) Stat Exams 05/05/21 19:40 Taken CBC W DIFF Stat Lab 05/05/21 19:40 Completed CMP Stat Lab 05/05/21 19:40 Completed Manual Differential NC Stat Lab 05/05/21 19:40 Completed NT PRO BNP Stat Lab 05/05/21 19:40 Completed TROPONIN Q3H Lab 05/05/21 19:40 Completed TROPONIN Q3H Lab 05/05/21 22:45 Ordered TROPONIN Q3H Lab 05/06/21 01:45 Ordered TROPONIN Q3H Lab 05/06/21 04:45 Ordered TROPONIN Q3H Lab 05/06/21 07:45 Ordered Medication Summary Generic Name Dose Route Start Last Admin Trade Name Freq PRN Reason Stop Dose Admin Furosemide 40 mg 05/05/21 21:00 Lasix 40 Mg/4 Ml IV 05/05/21 21:01 STAT ONE Potassium Bicarbonate 50 meq 05/05/21 21:00 K-Lyte 25 Meq PO 05/05/21 21:01 STAT ONE Lab/Rad Data: Laboratory Result Diagrams 05/05/21 19:40 05/05/21 19:40 Laboratory Results 05/05/21 05/05/21 05/05/21 Range/Units 19:40 19:40 19:40 WBC 8.2 (4.0-10.5) K/mm3 RBC 3.97 L (4.1-5.6) M/mm3 Hgb 10.3 L (12.5-18.0) gm/dl Hct 33.0 L (42-50) % MCV 83.1 (78-100) fl MCH 25.9 L (26-32) pg MCHC 31.2 L (32-36) g/dl RDW 18.2 H (11.5-14.0) % Plt Count 127 L (150-450) K/mm3 MPV 10.6 (7.5-11.0) fl Sodium 138 (137-145) mmol/L Potassium 3.2 L (3.5-5.1) mmol/L Chloride 106 (98-107) mmol/L Carbon Dioxide 22 (22-30) mmol/L Anion Gap 13.3 (5-15) MEQ/L BUN 11 (9-20) mg/dL Creatinine 1.07 (0.66-1.25) mg/dL Estimated GFR > 60.0 ML/MIN Glucose 98 (74-106) mg/dL Calcium 8.1 L (8.4-10.2) mg/dL Total Bilirubin 0.80 (0.2-1.3) mg/dL AST 17 (17-59) U/L ALT 14 (0-50) U/L Alkaline Phosphatase 104 (38-126) U/L Troponin I 0.018 (0.000-0.034) ng/mL NT-Pro-B Natriuret Pep 75223 H (0-1800) pg/mL Serum Total Protein 6.4 (6.3-8.2) g/dL Albumin 3.6 (3.5-5.0) g/dL - Progress Progress: re-examined Air Movement: fair Progress Note: 05/05/21 21:01 89 years old is evaluated for intermittent chest pain with some shortness of breath. EKG did not show any acute ischemic changes and has negative initial troponins. Chest x-ray showed mild congestion reviewed by me, official report is pending. Patient has elevated BNP and recently was admitted and received fluids for dehydration. I believe patient has some element of CHF exacerbation, given a dose of Lasix and potassium as he has mild low potassium. We will continue to trend cardiac enzyme. Discussed with Dr. Rodriguez and patient is being admitted for observation. Blood Culture(s) Obtained: No Antibiotics given: No Discussed with : Katty Will see patient in: hospital (observation) Counseled pt/family regarding: lab results, diagnosis, rad results - Departure Departure Disposition: Observation Clinical Impression: Acute exacerbation of CHF (congestive heart failure) Qualifiers: Heart failure type: unspecified Qualified Code(s): I50.9 - Heart failure, unspecified Condition: Stable Critical Care Time: No Referrals: CHANDANA DUNNE MD [Primary Care Provider] - Instructions: Heart Failure
[2021-05-05 19:58] LABS: Hemoglobin 10.3 gm/dl (12.5-18.0); Mean Cell Volume 83.1 fl (78-100); Mean Corpuscular Hemoglobin 25.9 pg (26-32); Mean Corpuscular Hgb Concent. 31.2 g/dl (32-36); Mean Platelet Volume 10.6 fl (7.5-11.0); Platelet Count 127 K/mm3 (150-450); Red Blood Count 3.97 M/mm3 (4.1-5.6); Red Cell Distribution Width 18.2 % (11.5-14.0); White Blood Count 8.2 K/mm3 (4.0-10.5)
[2021-05-05 20:19] LABS: ALBUMIN 3.6 g/dL (3.5-5.0); ALKALINE PHOSPHATASE 104 U/L (38-126); ANION GAP 13.3 MEQ/L (5-15); BLOOD UREA NITROGEN 11 mg/dL (9-20); CHLORIDE 106 mmol/L (98-107); Calcium 8.1 mg/dL (8.4-10.2); Carbon Dioxide 22 mmol/L (22-30); Creatinine 1 1.07 mg/dL (0.66-1.25); EST GLOMERULAR FILTRATION RATE > 60.0 ML/MIN; Glucose 98 mg/dL (74-106); NT PRO BNP 10100 pg/mL (0-1800); Potassium 3.2 mmol/L (3.5-5.1); SGOT/AST 17 U/L (17-59); SGPT/ALT 14 U/L (0-50); SODIUM 138 mmol/L (137-145); Total Protein 6.4 g/dL (6.3-8.2)
[2021-05-05] MEDS ORDERED: K-LYTE 25 MEQ PO ONE (21:00)
[2021-05-05] MEDS ORDERED: Lasix 40 MG/4 ML IV ONE (21:00)
[2021-05-05] MEDS ORDERED: K-LYTE 25 MEQ ONE (21:09)
[2021-05-05] MEDS ORDERED: Lasix 40 MG/4 ML ONE (21:09)
[2021-05-05 21:36] LABS: BAND 3 % (0.0-2.0); Eosinophil 1 % (0.00-3.0); Lymphocytes 9 % (24-44); Monocyte 14 % (0.0-12.0); Neutrophils 73 % (36.-66.); Platelet Estimate NORMAL (NORMAL); Total Cells Counted 100
--- NOTE | 2021-05-05 22:33 | XRAY ---
Indication: Chest pain. Comparison: May 02, 2021. Portable chest remains clear with again a few incidental tiny calcified granulomas. Heart not enlarged for AP portable technique. No new/acute findings.
[2021-05-05] MEDS ORDERED: DUONEB 0.5-3 MG/3 ml Neb IH PRN (22:51)
[2021-05-05] MEDS ORDERED: HUMALOG SQ PRN (22:51)
[2021-05-05] MEDS ORDERED: TYLENOL 325 MG PO PRN (22:51)
[2021-05-06 05:24] LABS: ALBUMIN 3.4 g/dL (3.5-5.0); ALKALINE PHOSPHATASE 100 U/L (38-126); ANION GAP 13.7 MEQ/L (5-15); BLOOD UREA NITROGEN 12 mg/dL (9-20); CHLORIDE 103 mmol/L (98-107); Calcium 7.9 mg/dL (8.4-10.2); Carbon Dioxide 23 mmol/L (22-30); Creatinine 1 1.11 mg/dL (0.66-1.25); EST GLOMERULAR FILTRATION RATE > 60.0 ML/MIN; Glucose 137 mg/dL (74-106); Potassium 3.2 mmol/L (3.5-5.1); SGOT/AST 15 U/L (17-59); SGPT/ALT 13 U/L (0-50); SODIUM 136 mmol/L (137-145); Total Protein 6.1 g/dL (6.3-8.2)
[2021-05-06 05:40] LABS: Hematocrit 32.1 % (42-50); Mean Cell Volume 82.1 fl (78-100); Mean Corpuscular Hemoglobin 25.6 pg (26-32); Mean Corpuscular Hgb Concent. 31.2 g/dl (32-36); Mean Platelet Volume 10.4 fl (7.5-11.0); Platelet Count 107 K/mm3 (150-450); Red Blood Count 3.91 M/mm3 (4.1-5.6); Red Cell Distribution Width 18.1 % (11.5-14.0)
[2021-05-06] MEDS ORDERED: Klor Con 10 MEQ PO ONE ×2 (07:37→12:00)
[2021-05-06] MEDS ORDERED: Lasix 40 MG/4 ML IV ONE (07:39)
[2021-05-06] MEDS ORDERED: CARDIZEM DRIP 100 MG/100 ML D5W 100 ML IV PRN (07:45)
[2021-05-06] MEDS ORDERED: Cardizem IV 50 MG/10 ML IV ONE (07:45)
[2021-05-06] MEDS: Zithromax 500 MG/ 250 ML NaCl Premix 500 MG/250 ML IVPB IV SCH ×2 (08:46→08:58)
[2021-05-06 08:53] LABS: Lymphocytes 16 % (24-44); Monocyte 16 % (0.0-12.0); Neutrophils 68 % (36.-66.); Total Cells Counted 100
[2021-05-06 08:54] LABS: ANISOCYTOSIS 1+; Platelet Estimate DECREASED (NORMAL); Polychromasia 1+
[2021-05-06] MEDS: ROCEPHIN 1 Gm-D5w 50 ml Bag** 1 G/50 ML IVPB IV SCH ×2 (09:39→09:40)
[2021-05-06] MEDS ORDERED: IMODIUM 2 MG PO PRN (09:58)
[2021-05-06] MEDS ORDERED: NON-FORMULARY ITEM (Metoprolol Tartrate [Metoprolol Tartrate] 100 MG) PO SCH (10:00)
[2021-05-06] MEDS ORDERED: PROTONIX 40 MG IV IV SCH (10:00)
[2021-05-06] MEDS ORDERED: PANTOPRAZOLE SODIUM 40 MG PO SCH (10:00)
[2021-05-06] MEDS ORDERED: NON-FORMULARY ITEM (Glimepiride [Glimepiride] 1 MG) PO SCH (10:00)
[2021-05-06] MEDS ORDERED: NON-FORMULARY ITEM (Losartan Potassium [Cozaar] 50 MG) PO SCH (10:00)
[2021-05-06] MEDS: Neurontin 100 MG PO SCH ×3 (10:14→21:07)
[2021-05-06] MEDS: SYNTHROID 50 MCG PO SCH (10:14)
[2021-05-06] MEDS: MAG-OX 400 PO SCH (10:14)
[2021-05-06] MEDS: Flagyl 500 MG PO SCH ×3 (10:14→21:07)
[2021-05-06] MEDS: ZYLOPRIM 100 MG PO SCH (10:14)
[2021-05-06] MEDS: Amaryl 2 MG PO SCH (10:15)
[2021-05-06] MEDS: Cozaar 50 MG PO SCH (10:15)
[2021-05-06] MEDS: Lopressor 50 MG PO SCH ×2 (10:15→10:30)
[2021-05-06] MEDS: clonazePAM PO SCH ×2 (10:15→21:07)
[2021-05-06] MEDS: Carafate 1 GM PO SCH ×2 (10:57→16:04)
[2021-05-06] MEDS ORDERED: PROVENTIL Solution 2.5 MG/0.5 ML IH PRN (11:59)
--- NOTE | 2021-05-06 14:01 | PCM.HP ---
History of Present Illness - Chief Complaint Chief Complaint: AFIB W RVR, CP, CHF, Pneumonia Date: 05/06/21 History of Present Illness: is a 89 year old male. Presented to ER with chest pain off and on the whole day prior to today. Pt. noted in ER to have cxr consistent with chf and elevated bnp. Pt. was given dose of lasix with good diuresis of about 750ml, Pt. this am noted to have crackles in Right base still, and low grade temp, with low potassium. Pt. is noted to have changed from Sinus rhythm to A-fib with rvr sometime after last normal strip at 0030 today. Pt. notes he is having no chest pain and feeling much better this am. - Review of Systems Constitutional: No Fever, No Chills Eyes: No Symptoms Ears, Nose, & Throat: No Symptoms Respiratory: Short Of Breath, No Cough Cardiac: Chest Pain Abdominal/Gastrointestinal: No Abdominal Pain, No Nausea, No Vomiting, No Diarrhea Genitourinary Symptoms: No Dysuria Musculoskeletal: No Back Pain, No Neck Pain Skin: No Rash Neurological: No Dizziness, No Focal Weakness, No Sensory Changes Psychological: No Symptoms Endocrine: No Symptoms Hematologic/Lymphatic: No Symptoms Immunological/Allergic: No Symptoms Medications & Allergies Home Medications: Home Medication List Allopurinol 100 mg [Zyloprim 100 mg] 100 mg PO DAILY 08/11/19 [History Confirmed 05/05/21] Glimepiride 1 mg PO DAILY 08/11/19 [History Confirmed 05/05/21] Sucralfate 1 gm [Carafate 1 GM] 1 gm PO TIDWM 08/11/19 [History Confirmed 05/05/21] Tamsulosin HCl 0.4 mg [Flomax 0.4 MG] 0.4 mg PO QHS 08/11/19 [History Confirmed 05/05/21] clonazePAM [Clonazepam] 0.5 mg PO BID 08/19/19 [History Confirmed 05/05/21] Gabapentin 100 mg PO TID 02/28/20 [History Confirmed 05/05/21] Magnesium Oxide 400 mg [Mag-Ox 400] 400 mg PO DAILY 04/08/20 [History Confirmed 05/05/21] Pantoprazole Sodium [Protonix] 40 mg PO DAILY 04/08/20 [History Confirmed 05/05/21] Losartan Potassium [Cozaar] 50 mg PO DAILY 05/27/20 [History Confirmed 05/05/21] Metoprolol Tartrate 100 mg PO BID 02/13/21 [History Confirmed 05/05/21] Levothyroxine Sodium 50 Mcg [Synthroid 50 Mcg] 50 mcg PO DAILY 03/26/21 [History Confirmed 05/05/21] Albuterol 2.5 mg/0.5 ml [PROVENTIL Solution 2.5 MG/0.5 ML] 2.5 mg IH Q6H PRN PRN 05/03/21 [History Confirmed 05/05/21] Cholecalciferol (Vitamin D3) [Vitamin D] 1,000 unit PO HS 05/03/21 [History Confirmed 05/05/21] Loperamide HCl 2 mg [Imodium 2 mg] 4 mg PO Q6H/PRN PRN 30 Days 05/04/21 [Rx Confirmed 05/05/21] Metronidazole 500 mg [Flagyl 500 MG] 500 mg PO TID 5 Days tablet 05/04/21 [Rx Confirmed 05/05/21] Allergies/Adverse Reactions: Allergies Allergy/AdvReac Type Severity Reaction Status Date / Time aspirin AdvReac Verified 05/02/21 16:57 - Past Medical History Past Medical History: Yes Neurological History: TIA ENT History: No Pertinent History Cardiac History: Congestive Heart Failure, Coronary Artery Disease, High Cholesterol, Hypertension, Myocardial Infarction ([place]) Respiratory History: CHF, COPD, Pneumonia Endocrine Medical History: Diabetes Type II Musculoskelatal History: Arthritis GI Medical History: GERD, GI Bleed, Hemorrhoids History: No Pertinent History Pyscho-Social History: Anxiety Male Reproductive Disorders: Prostate Cancer Comment: Gout, 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 - Past Surgical History Past Surgical History: Yes Neuro Surgical History: No Pertinent History Cardiac History: No Pertinent History Respiratory Surgery: No Pertinent History GI Surgical History: Hemorrhoidectomy Genitourinary Surgical Hx: No Pertinent History Musculskeletal Surgical Hx: Orthopedic Surgery Male Surgical History: No Pertinent History Other Surgical History: LT ARM - Social History Smoking Status: Former smoker How long have you smoked: 15 Years Exposure to second hand smoke: Yes (DAUGHTER) Alcohol: None Drug Use: none Significant Family History: no pertinent family hx - Physical Exam Vital Signs: Vital Signs - 24 hr Temp Pulse Resp BP Pulse Ox 05/06/21 13:00 76 18 109/64 97 05/06/21 11:58 97.5 F 65 18 104/80 94 L 05/06/21 10:54 75 18 114/60 94 L 05/06/21 10:00 93 H 18 101/67 94 L 05/06/21 09:00 18 05/06/21 08:58 107 H 18 96/67 92 L 05/06/21 08:28 116 H 18 127/89 93 L 05/06/21 08:00 92 L 05/06/21 07:34 100.3 F 149 H 19 101/72 94 L 05/06/21 04:00 100.1 F 80 20 158/78 05/05/21 23:35 88 20 92 L 05/05/21 23:27 100 F 96 H 20 152/80 05/05/21 22:00 88 20 156/76 95 05/05/21 21:04 97 05/05/21 21:00 84 18 156/76 94 L 05/05/21 20:00 84 20 146/78 95 05/05/21 19:43 95 05/05/21 19:29 99.9 F 88 16 97 General Appearance: no apparent distress, alert Neurologic Exam: alert, oriented x 3, cooperative, normal mood/affect, nml cerebellar function, sensation nml, No motor deficits Eye Exam: PERRL/EOMI, eyes nml inspection Ears, Nose, Throat Exam: normal ENT inspection, pharynx normal, moist mucous m embranes Neck Exam: normal inspection, non-tender, supple, full range of motion Respiratory Exam: normal breath sounds, lungs clear, crackles/rales (right base only), No respiratory distress Cardiovascular Exam: normal heart sounds, normal peripheral pulses, irregular Gastrointestinal/Abdomen Exam: soft, normal bowel sounds, No tenderness, No mass Back Exam: normal inspection, normal range of motion, No CVA tenderness, No vertebral tenderness Extremity Exam: normal inspection, normal range of motion, pelvis stable Skin Exam: normal color, warm, dry, No rash Lymphatic Exam: No adenopathy Results - Labs Lab/Micro Results: Lab Results-Last 24 Hours 05/05/21 05/05/21 05/05/21 Range/Units 19:40 19:40 19:40 WBC 8.2 (4.0-10.5) K/mm3 RBC 3.97 L (4.1-5.6) M/mm3 Hgb 10.3 L (12.5-18.0) gm/dl Hct 33.0 L (42-50) % MCV 83.1 (78-100) fl MCH 25.9 L (26-32) pg MCHC 31.2 L (32-36) g/dl RDW 18.2 H (11.5-14.0) % Plt Count 127 L (150-450) K/mm3 MPV 10.6 (7.5-11.0) fl Segmented Neutrophils 73 H (36.-66.) % Band Neutrophils 3 H (0.0-2.0) % Lymphocytes (Manual) 9 L (24-44) % Monocytes (Manual) 14 H (0.0-12.0) % Eosinophils (Manual) 1 (0.00-3.0) % Platelet Estimate NORMAL (NORMAL) RBC Morphology NORMAL Polychromasia Anisocytosis Sodium 138 (137-145) mmol/L Potassium 3.2 L (3.5-5.1) mmol/L Chloride 106 (98-107) mmol/L Carbon Dioxide 22 (22-30) mmol/L Anion Gap 13.3 (5-15) MEQ/L BUN 11 (9-20) mg/dL Creatinine 1.07 (0.66-1.25) mg/dL Estimated GFR > 60.0 ML/MIN Glucose 98 (74-106) mg/dL POC Glucometer (74 to 106) mg/dL Calcium 8.1 L (8.4-10.2) mg/dL Total Bilirubin 0.80 (0.2-1.3) mg/dL AST 17 (17-59) U/L ALT 14 (0-50) U/L Alkaline Phosphatase 104 (38-126) U/L Troponin I 0.018 (0.000-0.034) ng/mL NT-Pro-B Natriuret Pep 48976 H (0-1800) pg/mL Serum Total Protein 6.4 (6.3-8.2) g/dL Albumin 3.6 (3.5-5.0) g/dL SARS-CoV-2 (PCR) (NEGATIVE) 05/05/21 05/05/21 05/06/21 Range/Units 21:11 22:15 01:48 WBC (4.0-10.5) K/mm3 RBC (4.1-5.6) M/mm3 Hgb (12.5-18.0) gm/dl Hct (42-50) % MCV (78-100) fl MCH (26-32) pg MCHC (32-36) g/dl RDW (11.5-14.0) % Plt Count (150-450) K/mm3 MPV (7.5-11.0) fl Segmented Neutrophils (36.-66.) % Band Neutrophils (0.0-2.0) % Lymphocytes (Manual) (24-44) % Monocytes (Manual) (0.0-12.0) % Eosinophils (Manual) (0.00-3.0) % Platelet Estimate (NORMAL) RBC Morphology Polychromasia Anisocytosis Sodium (137-145) mmol/L Potassium (3.5-5.1) mmol/L Chloride (98-107) mmol/L Carbon Dioxide (22-30) mmol/L Anion Gap (5-15) MEQ/L BUN (9-20) mg/dL Creatinine (0.66-1.25) mg/dL Estimated GFR ML/MIN Glucose (74-106) mg/dL POC Glucometer (74 to 106) mg/dL Calcium (8.4-10.2) mg/dL Total Bilirubin (0.2-1.3) mg/dL AST (17-59) U/L ALT (0-50) U/L Alkaline Phosphatase (38-126) U/L Troponin I 0.019 0.016 (0.000-0.034) ng/mL NT-Pro-B Natriuret Pep (0-1800) pg/mL Serum Total Protein (6.3-8.2) g/dL Albumin (3.5-5.0) g/dL SARS-CoV-2 (PCR) NEGATIVE (NEGATIVE) 05/06/21 05/06/21 05/06/21 Range/Units 04:58 04:58 04:58 WBC 8.0 (4.0-10.5) K/mm3 RBC 3.91 L (4.1-5.6) M/mm3 Hgb 10.0 L (12.5-18.0) gm/dl Hct 32.1 L (42-50) % MCV 82.1 (78-100) fl MCH 25.6 L (26-32) pg MCHC 31.2 L (32-36) g/dl RDW 18.1 H (11.5-14.0) % Plt Count 107 L (150-450) K/mm3 MPV 10.4 (7.5-11.0) fl Segmented Neutrophils 68 H (36.-66.) % Band Neutrophils (0.0-2.0) % Lymphocytes (Manual) 16 L (24-44) % Monocytes (Manual) 16 H (0.0-12.0) % Eosinophils (Manual) (0.00-3.0) % Platelet Estimate DECREASED (NORMAL) RBC Morphology ABNORMAL Polychromasia 1+ Anisocytosis 1+ Sodium 136 L (137-145) mmol/L Potassium 3.2 L (3.5-5.1) mmol/L Chloride 103 (98-107) mmol/L Carbon Dioxide 23 (22-30) mmol/L Anion Gap 13.7 (5-15) MEQ/L BUN 12 (9-20) mg/dL Creatinine 1.11 (0.66-1.25) mg/dL Estimated GFR > 60.0 ML/MIN Glucose 137 H (74-106) mg/dL POC Glucometer (74 to 106) mg/dL Calcium 7.9 L (8.4-10.2) mg/dL Total Bilirubin 1.00 (0.2-1.3) mg/dL AST 15 L (17-59) U/L ALT 13 (0-50) U/L Alkaline Phosphatase 100 (38-126) U/L Troponin I 0.017 (0.000-0.034) ng/mL NT-Pro-B Natriuret Pep (0-1800) pg/mL Serum Total Protein 6.1 L (6.3-8.2) g/dL Albumin 3.4 L (3.5-5.0) g/dL SARS-CoV-2 (PCR) (NEGATIVE) 05/06/21 05/06/21 05/06/21 Range/Units 07:18 07:50 11:32 WBC (4.0-10.5) K/mm3 RBC (4.1-5.6) M/mm3 Hgb (12.5-18.0) gm/dl Hct (42-50) % MCV (78-100) fl MCH (26-32) pg MCHC (32-36) g/dl RDW (11.5-14.0) % Plt Count (150-450) K/mm3 MPV (7.5-11.0) fl Segmented Neutrophils (36.-66.) % Band Neutrophils (0.0-2.0) % Lymphocytes (Manual) (24-44) % Monocytes (Manual) (0.0-12.0) % Eosinophils (Manual) (0.00-3.0) % Platelet Estimate (NORMAL) RBC Morphology Polychromasia Anisocytosis Sodium (137-145) mmol/L Potassium (3.5-5.1) mmol/L Chloride (98-107) mmol/L Carbon Dioxide (22-30) mmol/L Anion Gap (5-15) MEQ/L BUN (9-20) mg/dL Creatinine (0.66-1.25) mg/dL Estimated GFR ML/MIN Glucose (74-106) mg/dL POC Glucometer 147 H 136 H (74 to 106) mg/dL Calcium (8.4-10.2) mg/dL Total Bilirubin (0.2-1.3) mg/dL AST (17-59) U/L ALT (0-50) U/L Alkaline Phosphatase (38-126) U/L Troponin I 0.014 (0.000-0.034) ng/mL NT-Pro-B Natriuret Pep (0-1800) pg/mL Serum Total Protein (6.3-8.2) g/dL Albumin (3.5-5.0) g/dL SARS-CoV-2 (PCR) (NEGATIVE) Accuchecks Date 05/06/21 Date 05/06/21 Time 11:40 Time 07:30 - Radiology Impressions Radiology Exams & Impressions: Radiology Procedures Category Date Time Status CHEST 1 VIEW (PORTABLE) Stat Exams 05/05/21 19:40 Completed - Other Procedures and Tests Respiratory Therapy 05/05/21 22:51 Oxygen Nasal Cannula 2 lpm 05/06/21 13:27 Respiratory Therapy Assessment DAILY Assessment/Plan (1) Atrial fib/flutter, transient Current Visit: Yes Status: Acute Assessment & Plan: Pt. will be moved to ICU and will be started on cardiazem drip after bolus of cardiazem, will begin thinner Eliquis if not converted by this evening Code(s): [id number] - (2) Pneumonia Current Visit: Yes Status: Acute Assessment & Plan: Low grade temp and unable to be certain with chf, iv abx will be initiated including rocephin and azithromycin Code(s): J18.9 - PNEUMONIA, UNSPECIFIED ORGANISM (3) Chest pain Current Visit: No Status: Acute Assessment & Plan: serial troponins Code(s): R07.9 - CHEST PAIN, UNSPECIFIED (4) CHF (congestive heart failure), NYHA class IV Current Visit: No Status: Chronic Qualifiers: Congestive heart failure type: combined Congestive heart failure chronicity: chronic Qualified Code(s): I50.42 - Chronic combined systolic (congestive) and diastolic (congestive) heart failure Assessment & Plan: Was given initial dose of lasix still with some crackles will repeat that and given low potassium this am will dose with po K and repeat in 4 hours. Code(s): I50.9 - HEART FAILURE, UNSPECIFIED (5) Hypokalemia Current Visit: Yes Status: Acute Assessment & Plan: replace with oral supplementation Code(s): E87.6 - HYPOKALEMIA
[2021-05-06] MEDS: ELIQUIS 2.5 MG TABLET PO SCH ×2 (17:19→17:20)
[2021-05-06] MEDS: VITAMIN D PO SCH (21:07)
[2021-05-06] MEDS: Flomax 0.4 MG PO SCH (21:07)
[2021-05-06] MEDS ORDERED: Lopressor 50 MG PO SCH (22:00)
[2021-05-07 07:04] LABS: Hematocrit 30.4 % (42-50); Hemoglobin 9.4 gm/dl (12.5-18.0); Mean Cell Volume 83.1 fl (78-100); Mean Corpuscular Hemoglobin 25.7 pg (26-32); Mean Corpuscular Hgb Concent. 30.9 g/dl (32-36); Mean Platelet Volume 10.9 fl (7.5-11.0); Platelet Count 110 K/mm3 (150-450); Red Blood Count 3.66 M/mm3 (4.1-5.6); Red Cell Distribution Width 18.5 % (11.5-14.0); White Blood Count 7.1 K/mm3 (4.0-10.5)
[2021-05-07 07:26] LABS: ALKALINE PHOSPHATASE 85 U/L (38-126); ANION GAP 13.5 MEQ/L (5-15); BLOOD UREA NITROGEN 14 mg/dL (9-20); CHLORIDE 104 mmol/L (98-107); Calcium 7.9 mg/dL (8.4-10.2); Carbon Dioxide 22 mmol/L (22-30); Creatinine 1 1.06 mg/dL (0.66-1.25); EST GLOMERULAR FILTRATION RATE > 60.0 ML/MIN; Glucose 108 mg/dL (74-106); MAGNESIUM 1.7 mg/dL (1.6-2.3); NT PRO BNP 3740 pg/mL (0-1800); Potassium 3.5 mmol/L (3.5-5.1); SGOT/AST 14 U/L (17-59); SGPT/ALT 10 U/L (0-50); SODIUM 135 mmol/L (137-145); Total Protein 5.6 g/dL (6.3-8.2)
--- NOTE | 2021-05-07 07:47 | PCM.NOTE ---
Date and Time: 05/07/21744 Subjective Assessment: doing ok, no new complaints - Review of Systems Constitutional: No Fever, No Chills Eyes: No Symptoms Ears, Nose, & Throat: No Symptoms Respiratory: No Cough, No Short Of Breath Cardiac: No Chest Pain, No Edema, No Syncope Abdominal/Gastrointestinal: No Abdominal Pain, No Nausea, No Vomiting, No Diarrhea Genitourinary Symptoms: No Dysuria Musculoskeletal: No Back Pain, No Neck Pain Skin: No Rash Neurological: No Dizziness, No Focal Weakness, No Sensory Changes Psychological: No Symptoms Endocrine: No Symptoms Hematologic/Lymphatic: No Symptoms Immunological/Allergic: No Symptoms Objective Exam General Appearance: no apparent distress, alert Neurologic Exam: alert, oriented x 3, cooperative, normal mood/affect, nml cerebellar function, sensation nml, No motor deficits Skin Exam: normal color, warm, dry Eye Exam: PERRL, EOMI, eyes nml inspection Ears, Nose, Throat Exam: normal ENT inspection, pharynx normal, moist mucous membranes Neck Exam: normal inspection, non-tender, supple, full range of motion Respiratory Exam: diminished breath sounds, No respiratory distress Cardiovascular Exam: tachycardia Gastrointestinal/Abdomen Exam: soft, No tenderness, No mass Extremity Exam: normal inspection, normal range of motion Back Exam: normal inspection, normal range of motion, No CVA tenderness, No vertebral tenderness Male Genitalia Exam: deferred Rectal Exam: deferred OBJECTIVE DATA Vital Signs: Vital Signs - 24 hr Temp Pulse Resp BP Pulse Ox 05/07/21 04:00 99.6 F 100 H 17 102/68 92 L 05/07/21 00:00 99.5 F 86 18 119/67 92 L 05/06/21 20:00 99.1 F 91 H 16 147/69 98 05/06/21 18:38 79 16 99 05/06/21 18:00 79 18 128/75 97 05/06/21 17:00 88 18 124/75 97 05/06/21 16:00 68 16 127/77 97 05/06/21 15:00 72 18 117/63 97 05/06/21 14:00 74 18 127/64 97 05/06/21 13:00 76 18 109/64 97 05/06/21 11:58 97.5 F 65 18 104/80 94 L 05/06/21 10:54 75 18 114/60 94 L 05/06/21 10:00 93 H 18 101/67 94 L 05/06/21 09:00 18 05/06/21 08:58 107 H 18 96/67 92 L 05/06/21 08:28 116 H 18 127/89 93 L 05/06/21 08:00 92 L Pain Assessment - Last Documented Pain Intensity 0 Pain Scale Used 0-10 Pain Scale Intake and Output: Intake & Output 05/04/21 05/05/21 05/06/21 05/07/21 11:59 11:59 11:59 11:59 Intake Total 60 1500 Output Total 1250 900 Balance -1190 600 Weight 82.7 kg 83.2 kg Lab Results: Lab Results-Last 24 Hours 05/06/21 05/06/21 05/06/21 Range/Units 04:58 07:50 11:32 WBC (4.0-10.5) K/mm3 RBC (4.1-5.6) M/mm3 Hgb (12.5-18.0) gm/dl Hct (42-50) % MCV (78-100) fl MCH (26-32) pg MCHC (32-36) g/dl RDW (11.5-14.0) % Plt Count (150-450) K/mm3 MPV (7.5-11.0) fl Segmented Neutrophils 68 H (36.-66.) % Lymphocytes (Manual) 16 L (24-44) % Monocytes (Manual) 16 H (0.0-12.0) % Platelet Estimate DECREASED (NORMAL) RBC Morphology ABNORMAL Polychromasia 1+ Anisocytosis 1+ Sodium (137-145) mmol/L Potassium (3.5-5.1) mmol/L Chloride (98-107) mmol/L Carbon Dioxide (22-30) mmol/L Anion Gap (5-15) MEQ/L BUN (9-20) mg/dL Creatinine (0.66-1.25) mg/dL Estimated GFR ML/MIN Glucose (74-106) mg/dL POC Glucometer 136 H (74 to 106) mg/dL Calcium (8.4-10.2) mg/dL Magnesium (1.6-2.3) mg/dL Total Bilirubin (0.2-1.3) mg/dL AST (17-59) U/L ALT (0-50) U/L Alkaline Phosphatase (38-126) U/L Troponin I 0.014 (0.000-0.034) ng/mL NT-Pro-B Natriuret Pep (0-1800) pg/mL Serum Total Protein (6.3-8.2) g/dL Albumin (3.5-5.0) g/dL 05/06/21 05/06/21 05/07/21 Range/Units 16:27 20:49 05:20 WBC 7.1 (4.0-10.5) K/mm3 RBC 3.66 L (4.1-5.6) M/mm3 Hgb 9.4 L (12.5-18.0) gm/dl Hct 30.4 L (42-50) % MCV 83.1 (78-100) fl MCH 25.7 L (26-32) pg MCHC 30.9 L (32-36) g/dl RDW 18.5 H (11.5-14.0) % Plt Count 110 L (150-450) K/mm3 MPV 10.9 (7.5-11.0) fl Segmented Neutrophils (36.-66.) % Lymphocytes (Manual) (24-44) % Monocytes (Manual) (0.0-12.0) % Platelet Estimate (NORMAL) RBC Morphology Polychromasia Anisocytosis Sodium (137-145) mmol/L Potassium (3.5-5.1) mmol/L Chloride (98-107) mmol/L Carbon Dioxide (22-30) mmol/L Anion Gap (5-15) MEQ/L BUN (9-20) mg/dL Creatinine (0.66-1.25) mg/dL Estimated GFR ML/MIN Glucose (74-106) mg/dL POC Glucometer 134 H 154 H (74 to 106) mg/dL Calcium (8.4-10.2) mg/dL Magnesium (1.6-2.3) mg/dL Total Bilirubin (0.2-1.3) mg/dL AST (17-59) U/L ALT (0-50) U/L Alkaline Phosphatase (38-126) U/L Troponin I (0.000-0.034) ng/mL NT-Pro-B Natriuret Pep (0-1800) pg/mL Serum Total Protein (6.3-8.2) g/dL Albumin (3.5-5.0) g/dL 05/07/21 05/07/21 Range/Units 05:20 07:09 WBC (4.0-10.5) K/mm3 RBC (4.1-5.6) M/mm3 Hgb (12.5-18.0) gm/dl Hct (42-50) % MCV (78-100) fl MCH (26-32) pg MCHC (32-36) g/dl RDW (11.5-14.0) % Plt Count (150-450) K/mm3 MPV (7.5-11.0) fl Segmented Neutrophils (36.-66.) % Lymphocytes (Manual) (24-44) % Monocytes (Manual) (0.0-12.0) % Platelet Estimate (NORMAL) RBC Morphology Polychromasia Anisocytosis Sodium 135 L (137-145) mmol/L Potassium 3.5 (3.5-5.1) mmol/L Chloride 104 (98-107) mmol/L Carbon Dioxide 22 (22-30) mmol/L Anion Gap 13.5 (5-15) MEQ/L BUN 14 (9-20) mg/dL Creatinine 1.06 (0.66-1.25) mg/dL Estimated GFR > 60.0 ML/MIN Glucose 108 H (74-106) mg/dL POC Glucometer 112 H (74 to 106) mg/dL Calcium 7.9 L (8.4-10.2) mg/dL Magnesium 1.7 (1.6-2.3) mg/dL Total Bilirubin 0.70 (0.2-1.3) mg/dL AST 14 L (17-59) U/L ALT 10 (0-50) U/L Alkaline Phosphatase 85 (38-126) U/L Troponin I (0.000-0.034) ng/mL NT-Pro-B Natriuret Pep 3740 H (0-1800) pg/mL Serum Total Protein 5.6 L (6.3-8.2) g/dL Albumin 3.0 L (3.5-5.0) g/dL Radiology Exams: Radiology Procedures Category Date Time Status CHEST 1 VIEW (PORTABLE) Stat Exams 05/05/21 19:40 Completed Assessment/Plan (1) Atrial fib/flutter, transient Current Visit: Yes Status: Acute Assessment & Plan: Chief Complaint Diagnosis AFIB W RVR, CP, CHF, Pneumonia Admission Date Date 05/06/21 Allergies Allergy/AdvReac Type Severity Reaction Status Date / Time aspirin AdvReac Verified 05/02/21 16:57 Vital Signs (Last 24 hours) Temp Pulse Resp BP Pulse Ox 05/07/21 04:00 99.6 F 100 H 17 102/68 92 L 05/07/21 00:00 99.5 F 86 18 119/67 92 L 05/06/21 20:00 99.1 F 91 H 16 147/69 98 05/06/21 18:38 79 16 99 05/06/21 18:00 79 18 128/75 97 05/06/21 17:00 88 18 124/75 97 05/06/21 16:00 68 16 127/77 97 05/06/21 15:00 72 18 117/63 97 05/06/21 14:00 74 18 127/64 97 05/06/21 13:00 76 18 109/64 97 05/06/21 11:58 97.5 F 65 18 104/80 94 L 05/06/21 10:54 75 18 114/60 94 L 05/06/21 10:00 93 H 18 101/67 94 L 05/06/21 09:00 18 05/06/21 08:58 107 H 18 96/67 92 L 05/06/21 08:28 116 H 18 127/89 93 L 05/06/21 08:00 92 L Current Medications Generic Name Dose Route Start Last Admin Trade Name Freq PRN Reason Stop Dose Admin Acetaminophen 650 mg 05/05/21 22:51 05/06/21 08:10 Tylenol 325 Mg PO 06/04/21 22:50 650 mg Q4H PRN PRN Administration PAIN AND/OR FEVER Albuterol Sulfate 2.5 mg 05/06/21 11:59 Proventil Solution 2.5 Mg/0.5 Ml IH 06/05/21 11:58 Q6H PRN PRN Wheezing Allopurinol 100 mg 05/06/21 10:00 05/06/21 10:14 Zyloprim 100 Mg PO 06/05/21 09:59 100 mg DAILY DRAKE Administration Apixaban 5 mg 05/06/21 18:00 05/06/21 17:20 Eliquis 2.5 Mg Tablet PO 06/05/21 17:59 Not Given BID DRAKE Cholecalciferol 1,000 unit 05/06/21 22:00 05/06/21 21:07 Vitamin D PO 06/05/21 21:59 1,000 unit HS DRAKE Administration Clonazepam 0.5 mg 05/06/21 10:00 05/06/21 21:07 Clonazepam PO 06/05/21 09:59 0.5 mg BID DRAKE Administration Gabapentin 100 mg 05/06/21 10:00 05/06/21 21:07 Neurontin 100 Mg PO 06/05/21 09:59 100 mg TID DRAKE Administration Glimepiride 1 mg 05/06/21 10:00 05/06/21 10:15 Amaryl 2 Mg PO 06/05/21 09:59 Not Given DAILY DRAKE Ceftriaxone Sodium/Dextrose 1 g in 50 mls @ 100 mls/hr 05/06/21 09:00 05/06/21 09:40 Rocephin 1 Gm-D5w 50 Ml Bag IV 05/09/21 08:59 Not Given Q24H10 DRAKE Azithromycin 500 mg in 250 mls @ 250 mls/hr 05/06/21 09:00 05/06/21 08:58 Zithromax 500 Mg/ 250 Ml Nacl Premix IV 06/05/21 08:59 Not Given Q24H10 [facility] Insulin Human Lispro 0 unit 05/05/21 22:51 Humalog SQ 06/04/21 22:50 UD PRN HYPERGLYCEMIA Levothyroxine Sodium 50 mcg 05/06/21 10:00 05/06/21 10:14 Synthroid 50 Mcg PO 06/05/21 09:59 50 mcg DAILY DRAKE Administration Loperamide HCl 4 mg 05/06/21 09:58 Imodium 2 Mg PO 06/05/21 09:57 Q6H/PRN PRN DIARRHEA Losartan Potassium 50 mg 05/06/21 10:00 05/06/21 10:15 Cozaar 50 Mg PO 06/05/21 09:59 Not Given DAILY DRAKE Magnesium Oxide 400 mg 05/06/21 10:00 05/06/21 10:14 Mag-Ox 400 PO 06/05/21 09:59 400 mg DAILY DRAKE Administration Metoprolol Tartrate 100 mg 05/07/21 07:39 Lopressor 50 Mg PO 06/05/21 21:59 BID DRAKE Metronidazole 500 mg 05/06/21 10:00 05/06/21 21:07 Flagyl 500 Mg PO 05/10/21 22:01 500 mg TID DRAKE Administration Pantoprazole Sodium 40 mg 05/07/21 10:00 Protonix 40mg Tablet PO 06/06/21 09:59 DAILY DRAKE Sucralfate 1 g 05/06/21 12:00 05/06/21 16:04 Carafate 1 Gm PO 06/05/21 11:59 1 g TIDWM DRAKE Administration Tamsulosin HCl 0.4 mg 05/06/21 22:00 05/06/21 21:07 Flomax 0.4 Mg PO 06/05/21 21:59 0.4 mg QHS DRAKE Administration Discontinued Medications Generic Name Dose Route Start Last Admin Trade Name Freq PRN Reason Stop Dose Admin Albuterol/Ipratropium 3 ml 05/05/21 22:51 Duoneb 0.5-3 Mg/3 Ml Neb IH 06/04/21 22:50 Q4HPRN PRN SHORTNESS OF BREATH/WHEEZING Diltiazem HCl 10 mg 05/06/21 07:45 05/06/21 08:07 Cardizem Iv 50 Mg/10 Ml IV 05/06/21 07:46 10 mg STAT ONE Administration Furosemide 40 mg 05/05/21 21:00 05/05/21 21:13 Lasix 40 Mg/4 Ml IV 05/05/21 21:01 40 mg STAT ONE Administration Furosemide Confirm 05/05/21 21:09 Lasix 40 Mg/4 Ml Administered 05/05/21 21:10 Dose 40 mg .ROUTE .STK-MED ONE Furosemide 40 mg 05/06/21 07:39 05/06/21 08:14 Lasix 40 Mg/4 Ml IV 05/06/21 07:40 40 mg STAT ONE Administration Diltiazem HCl 100 mls @ 5 mls/hr 05/06/21 07:45 05/06/21 18:18 Cardizem Drip 100 Mg/100 Ml D5w IV 06/05/21 07:44 0 mg/hr .Q20H PRN 0 mls/hr HEART RATE/ A-FIB Titration Protocol 5 MG/HR Metoprolol Tartrate 100 mg 05/06/21 10:15 05/06/21 10:30 Lopressor 50 Mg PO 06/05/21 10:14 50 mg BID DRAKE Administration Metoprolol Tartrate 50 mg 05/06/21 22:00 05/06/21 21:07 Lopressor 50 Mg PO 06/05/21 21:59 50 mg BID DRAKE Administration Pantoprazole Sodium 40 mg 05/06/21 10:00 05/06/21 08:14 Protonix 40 Mg Iv IV 06/05/21 09:59 40 mg Q24H10 DRAKE Administration Potassium Bicarbonate 50 meq 05/05/21 21:00 05/05/21 21:13 K-Lyte 25 Meq PO 05/05/21 21:01 50 meq STAT ONE Administration Potassium Bicarbonate Confirm 05/05/21 21:09 K-Lyte 25 Meq Administered 05/05/21 21:10 Dose 50 meq .ROUTE .STK-MED ONE Potassium Chloride 40 meq 05/06/21 07:37 05/06/21 08:10 Klor Con 10 Meq PO 05/06/21 07:38 40 meq STAT ONE Administration Potassium Chloride 40 meq 05/06/21 12:00 05/06/21 11:41 Klor Con 10 Meq PO 05/06/21 12:01 40 meq STAT ONE Administration Intake & Output (Last 24 hours) 05/04/21 05/05/21 05/06/21 05/07/21 11:59 11:59 11:59 11:59 Intake Total 60 1500 Output Total 1250 900 Balance -1190 600 Weight 82.7 kg 83.2 kg Laboratory Results (Last 24 hours) 05/07/21 05/07/21 05/07/21 07:09 05:20 05:20 WBC 7.1 RBC 3.66 L Hgb 9.4 L Hct 30.4 L MCV 83.1 MCH 25.7 L MCHC 30.9 L RDW 18.5 H Plt Count 110 L MPV 10.9 Segmented Neutrophils Lymphocytes (Manual) Monocytes (Manual) Platelet Estimate RBC Morphology Polychromasia Anisocytosis Sodium 135 L Potassium 3.5 Chloride 104 Carbon Dioxide 22 Anion Gap 13.5 BUN 14 Creatinine 1.06 Estimated GFR > 60.0 Glucose 108 H POC Glucometer 112 H Calcium 7.9 L Magnesium 1.7 Total Bilirubin 0.70 AST 14 L ALT 10 Alkaline Phosphatase 85 Troponin I NT-Pro-B Natriuret Pep 3740 H Serum Total Protein 5.6 L Albumin 3.0 L 05/06/21 05/06/21 05/06/21 20:49 16:27 11:32 WBC RBC Hgb Hct MCV MCH MCHC RDW Plt Count MPV Segmented Neutrophils Lymphocytes (Manual) Monocytes (Manual) Platelet Estimate RBC Morphology Polychromasia Anisocytosis Sodium Potassium Chloride Carbon Dioxide Anion Gap BUN Creatinine Estimated GFR Glucose POC Glucometer 154 H 134 H 136 H Calcium Magnesium Total Bilirubin AST ALT Alkaline Phosphatase Troponin I NT-Pro-B Natriuret Pep Serum Total Protein Albumin 05/06/21 05/06/21 07:50 04:58 WBC RBC Hgb Hct MCV MCH MCHC RDW Plt Count MPV Segmented Neutrophils 68 H Lymphocytes (Manual) 16 L Monocytes (Manual) 16 H Platelet Estimate DECREASED RBC Morphology ABNORMAL Polychromasia 1+ Anisocytosis 1+ Sodium Potassium Chloride Carbon Dioxide Anion Gap BUN Creatinine Estimated GFR Glucose POC Glucometer Calcium Magnesium Total Bilirubin AST ALT Alkaline Phosphatase Troponin I 0.014 NT-Pro-B Natriuret Pep Serum Total Protein Albumin Orders (Last 24 hours) Category Date Time Status Change admission status [Change to Full Admit] ROUTINE Care 05/06/21 07:20 Active BNP [NT PRO BNP] AM.LAB Lab 05/07/21 05:20 Completed CBC W DIFF AM.LAB Lab 05/07/21 05:20 Completed CMP AM.LAB Lab 05/07/21 05:20 Completed MAG [MAGNESIUM] AM.LAB Lab 05/07/21 05:20 Completed Manual Differential NC Routine Lab 05/07/21 05:20 Completed POCT GLUCOSE Stat Lab 05/06/21 07:18 Completed POCT GLUCOSE Stat Lab 05/06/21 11:32 Completed POCT GLUCOSE Stat Lab 05/06/21 16:27 Completed POCT GLUCOSE Stat Lab 05/06/21 20:49 Completed POCT GLUCOSE Stat Lab 05/07/21 07:09 Completed TROPONIN Q3H Lab 05/06/21 07:50 Completed Albuterol 2.5 mg/0.5 ml [PROVENTIL Solution 2.5 MG/0 Med 05/06/21 11:59 Active .5 ML] 2.5 mg IH Q6H PRN PRN Allopurinol 100 mg [Zyloprim 100 mg] Med 05/06/21 10:00 Active 100 mg PO DAILY Apixaban [Eliquis 2.5 mg Tablet] Med 05/06/21 18:00 Active 5 mg PO BID Azithromycin 500 mg/250 ml [Zithromax 500 MG/ 250 ML Med 05/06/21 09:00 Active NaCl Premix] 500 mg in 250 ml IV Q24H10 Ceftriaxone 1 GM/50 ML PREMIX* [ROCEPHIN 1 Gm-D5w 50 ml Med 05/06/21 09:00 Active Bag] 1 g in 50 ml IV Q24H10 Cholecalciferol (Vitamin D3) [Vitamin D] Med 05/06/21 22:00 Active 1,000 unit PO HS Diltiazem HCl 100 mg/100 ml [Cardizem Drip 100 mg/100 Med 05/06/21 07:45 Discontinued ml D5w] 100 ml IV 5 mg/hr Diltiazem HCl 50 mg/10 ml [Cardizem IV 50 MG/10 ML Med 05/06/21 07:45 Discontinued *] 10 mg IV STAT ONE Furosemide 40 mg/4 ml [Lasix 40 MG/4 ML] Med 05/06/21 07:39 Discontinued 40 mg IV STAT ONE Gabapentin 100 mg [Neurontin 100 MG] Med 05/06/21 10:00 Active 100 mg PO TID Glimepiride 2 mg [Amaryl 2 MG] Med 05/06/21 10:00 Active 1 mg PO DAILY Levothyroxine Sodium 50 Mcg [Synthroid 50 Mcg] Med 05/06/21 10:00 Active 50 mcg PO DAILY Loperamide HCl 2 mg [Imodium 2 mg] Med 05/06/21 09:58 Active 4 mg PO Q6H/PRN PRN Losartan Potassium 50 mg [Cozaar 50 MG] Med 05/06/21 10:00 Active 50 mg PO DAILY Magnesium Oxide 400 mg [Mag-Ox 400] Med 05/06/21 10:00 Active 400 mg PO DAILY Metoprolol Tartrate 50 mg [Lopressor 50 MG] Med 05/06/21 10:15 Discontinued 100 mg PO BID Metoprolol Tartrate 50 mg [Lopressor 50 MG] Med 05/07/21 07:39 Ordered 100 mg PO BID Metoprolol Tartrate 50 mg [Lopressor 50 MG] Med 05/06/21 22:00 Discontinued 50 mg PO BID Metronidazole 500 mg [Flagyl 500 MG] Med 05/06/21 10:00 Active 500 mg PO TID PANTOPRAZOLE 40 mg Tablet [Protonix 40MG Tablet] Med 05/07/21 10:00 Active 40 mg PO DAILY Pantoprazole 40 mg [Protonix 40 mg IV] Med 05/06/21 10:00 Discontinued 40 mg IV Q24H10 Potassium Chloride 10 Meq Tab* [Klor Con 10 MEQ] Med 05/06/21 07:37 Discontinued 40 meq PO STAT ONE Potassium Chloride 10 Meq Tab* [Klor Con 10 MEQ] Med 05/06/21 12:00 Discontinued 40 meq PO STAT ONE Sucralfate 1 gm [Carafate 1 GM] Med 05/06/21 12:00 Active 1 g PO TIDWM Tamsulosin HCl 0.4 mg [Flomax 0.4 MG] Med 05/06/21 22:00 Active 0.4 mg PO QHS clonazePAM Med 05/06/21 10:00 Active 0.5 mg PO BID Respiratory Therapy Assessment DAILY RT 05/06/21 13:27 Active Transfer Order Routine Transfer 05/07/21 Completed Patient Care Notes (Last 24 hours) 05/07/21 07:30 (created 05/07/21 07:43) Nursing Note by Viridiana Owens rounded on his patient and has made him MSOF. Initialized on 05/07/21 07:43 - END OF NOTE 05/06/21 18:17 Nursing Note by Margot Wills spoke with dr. gaytan about pt afib with heart rate 70s. cardizem drip off. Initialized on 05/06/21 18:17 - END OF NOTE 05/06/21 10:48 Nursing Note by RomanViridiana Patient was made full admit 05/06/21 at 07:20 Initialized on 05/06/21 10:48 - END OF NOTE 05/06/21 08:05 Nursing Note by RomanViridiana Patient was moved to room #[id number] and made ICU/OBS at 07:50 on 05/06/21. Initialized on 05/06/21 08:05 - END OF NOTE 05/06/21 07:50 (created 05/06/21 10:09) Nursing Note by Roman,Viridiana Patient was removed from isolation. Initialized on 05/06/21 10:09 - END OF NOTE 05/06/21 07:50 (created 05/06/21 09:55) Nursing Note by Margot Wills out of isolation Initialized on 05/06/21 09:55 - END OF NOTE Code(s): [id number] - (2) Acute exacerbation of CHF (congestive heart failure) Current Visit: Yes Status: Acute Qualifiers: Heart failure type: combined systolic and diastolic Qualified Code(s): I50.43 - Acute on chronic combined systolic (congestive) and diastolic (congestive) heart failure Code(s): I50.9 - HEART FAILURE, UNSPECIFIED (3) COPD mixed type Current Visit: No Status: Acute Code(s): J44.9 - CHRONIC OBSTRUCTIVE PULMONARY DISEASE, UNSPECIFIED
[2021-05-07] MEDS: Amaryl 2 MG PO SCH (08:13)
[2021-05-07] MEDS: Carafate 1 GM PO SCH ×3 (08:13→16:04)
[2021-05-07] MEDS: Neurontin 100 MG PO SCH ×3 (08:13→21:00)
[2021-05-07] MEDS: Lopressor 50 MG PO SCH ×2 (08:13→21:00)
[2021-05-07] MEDS: SYNTHROID 50 MCG PO SCH (08:14)
[2021-05-07] MEDS: clonazePAM PO SCH ×2 (08:14→21:00)
[2021-05-07] MEDS: ELIQUIS 2.5 MG TABLET PO SCH ×2 (08:14→21:00)
[2021-05-07] MEDS: Flagyl 500 MG PO SCH ×3 (08:14→21:00)
[2021-05-07] MEDS: Protonix 40MG Tablet PO SCH (08:14)
[2021-05-07] MEDS: ZYLOPRIM 100 MG PO SCH (08:14)
[2021-05-07] MEDS: MAG-OX 400 PO SCH (08:15)
[2021-05-07] MEDS: Cozaar 50 MG PO SCH (08:15)
[2021-05-07 09:04] LABS: Lymphocytes 20 % (24-44); Monocyte 14 % (0.0-12.0); Neutrophils 66 % (36.-66.); Platelet Estimate DECREASED (NORMAL); Total Cells Counted 100
[2021-05-07 09:05] LABS: ANISOCYTOSIS 1+; Polychromasia 1+
[2021-05-07] MEDS: Zithromax 500 MG/ 250 ML NaCl Premix 500 MG/250 ML IVPB IV SCH (09:09)
[2021-05-07] MEDS: ROCEPHIN 1 Gm-D5w 50 ml Bag** 1 G/50 ML IVPB IV SCH (09:09)
[2021-05-07] MEDS: Flomax 0.4 MG PO SCH (21:00)
[2021-05-07] MEDS: VITAMIN D PO SCH (21:00)
[2021-05-08] MEDS: Carafate 1 GM PO SCH ×2 (08:17→12:07)
[2021-05-08] MEDS: Amaryl 2 MG PO SCH (10:03)
[2021-05-08] MEDS: clonazePAM PO SCH (10:03)
[2021-05-08] MEDS: Flagyl 500 MG PO SCH (10:04)
[2021-05-08] MEDS: ELIQUIS 2.5 MG TABLET PO SCH (10:04)
[2021-05-08] MEDS: MAG-OX 400 PO SCH (10:05)
[2021-05-08] MEDS: Lopressor 50 MG PO SCH (10:05)
[2021-05-08] MEDS: Neurontin 100 MG PO SCH (10:05)
[2021-05-08] MEDS: Protonix 40MG Tablet PO SCH (10:05)
[2021-05-08] MEDS: Zithromax 500 MG/ 250 ML NaCl Premix 500 MG/250 ML IVPB IV SCH (10:06)
[2021-05-08] MEDS: ZYLOPRIM 100 MG PO SCH (10:06)
[2021-05-08] MEDS: SYNTHROID 50 MCG PO SCH (10:06)
[2021-05-08] MEDS: ROCEPHIN 1 Gm-D5w 50 ml Bag** 1 G/50 ML IVPB IV SCH (10:06)
[2021-05-08] MEDS: Cozaar 50 MG PO SCH (10:08)
[2021-05-08 12:08] VITALS: BP 103/47; PULSE 71; O2SAT 95
--- NOTE | 2021-05-08 18:32 | PCM.DS ---
Discharge Summary Date of Admission: 05/06/21 07:20 Admitting Physician: CHANDANA DUNNE Primary Care Provider: CHANDANA DUNNE Allergies Allergies aspirin Adverse Reaction (Verified 05/02/21 16:57) bleeding Hospital Summary - Hospital Course Hospital Course: Chief Complaint Diagnosis AFIB W RVR, CP, CHF, Pneumonia Admission Date Date 05/06/21 Allergies Allergy/AdvReac Type Severity Reaction Status Date / Time aspirin AdvReac Verified 05/02/21 16:57 Vital Signs (Last 24 hours) Temp Pulse Resp BP Pulse Ox 05/08/21 12:00 97.9 F 71 19 103/47 95 05/08/21 07:57 98.0 F 94 H 16 122/71 98 05/08/21 07:35 89 16 94 L 05/08/21 04:00 97.8 F 89 12 156/80 94 L 05/08/21 00:00 98 F 83 16 145/76 94 L 05/07/21 19:57 97.7 F 91 H 18 134/63 95 05/07/21 18:56 63 20 92 L Home Medications Medication Instructions Recorded Confirmed Last Taken Type Apixaban [Eliquis 2.5 mg Tablet] 5 mg PO BID #60 tablet 05/08/21 Unknown Rx Furosemide 20 mg [Lasix 20 20 mg PO QAM #30 tablet 05/08/21 Unknown Rx mg] Current Medications Discontinued Medications Generic Name Dose Route Start Last Admin Trade Name Freq PRN Reason Stop Dose Admin Acetaminophen 650 mg 05/05/21 22:51 05/06/21 08:10 Tylenol 325 Mg PO 06/04/21 22:50 650 mg Q4H PRN PRN Administration PAIN AND/OR FEVER Albuterol Sulfate 2.5 mg 05/06/21 11:59 Proventil Solution 2.5 Mg/0.5 Ml IH 06/05/21 11:58 Q6H PRN PRN Wheezing Albuterol/Ipratropium 3 ml 05/05/21 22:51 Duoneb 0.5-3 Mg/3 Ml Neb IH 06/04/21 22:50 Q4HPRN PRN SHORTNESS OF BREATH/WHEEZING Allopurinol 100 mg 05/06/21 10:00 05/08/21 10:06 Zyloprim 100 Mg PO 06/05/21 09:59 100 mg DAILY DRAKE Administration Apixaban 5 mg 05/06/21 18:00 05/08/21 10:04 Eliquis 2.5 Mg Tablet PO 06/05/21 17:59 5 mg BID DRAKE Administration Cholecalciferol 1,000 unit 05/06/21 22:00 05/07/21 21:00 Vitamin D PO 06/05/21 21:59 1,000 unit HS DRAKE Administration Clonazepam 0.5 mg 05/06/21 10:00 05/08/21 10:03 Clonazepam PO 06/05/21 09:59 0.5 mg BID DRAKE Administration Diltiazem HCl 10 mg 05/06/21 07:45 05/06/21 08:07 Cardizem Iv 50 Mg/10 Ml IV 05/06/21 07:46 10 mg STAT ONE Administration Furosemide 40 mg 05/05/21 21:00 05/05/21 21:13 Lasix 40 Mg/4 Ml IV 05/05/21 21:01 40 mg STAT ONE Administration Furosemide Confirm 05/05/21 21:09 Lasix 40 Mg/4 Ml Administered 05/05/21 21:10 Dose 40 mg .ROUTE .STK-MED ONE Furosemide 40 mg 05/06/21 07:39 05/06/21 08:14 Lasix 40 Mg/4 Ml IV 05/06/21 07:40 40 mg STAT ONE Administration Gabapentin 100 mg 05/06/21 10:00 05/08/21 10:05 Neurontin 100 Mg PO 06/05/21 09:59 100 mg TID DRAKE Administration Glimepiride 1 mg 05/06/21 10:00 05/08/21 10:03 Amaryl 2 Mg PO 06/05/21 09:59 1 mg DAILY DRAKE Administration Diltiazem HCl 100 mls @ 5 mls/hr 05/06/21 07:45 05/06/21 18:18 Cardizem Drip 100 Mg/100 Ml D5w IV 06/05/21 07:44 0 mg/hr .Q20H PRN 0 mls/hr HEART RATE/ A-FIB Titration Protocol 5 MG/HR Ceftriaxone Sodium/Dextrose 1 g in 50 mls @ 100 mls/hr 05/06/21 09:00 05/08/21 10:06 Rocephin 1 Gm-D5w 50 Ml Bag IV 05/10/21 08:59 100 mls/hr Q24H10 DRAKE Administration Azithromycin 500 mg in 250 mls @ 250 mls/hr 05/06/21 09:00 05/08/21 10:06 Zithromax 500 Mg/ 250 Ml Nacl Premix IV 06/05/21 08:59 250 mls/hr Q24H10 DRAKE Administration Insulin Human Lispro 0 unit 05/05/21 22:51 Humalog SQ 06/04/21 22:50 UD PRN HYPERGLYCEMIA Levothyroxine Sodium 50 mcg 05/06/21 10:00 05/08/21 10:06 Synthroid 50 Mcg PO 06/05/21 09:59 50 mcg DAILY DRAKE Administration Loperamide HCl 4 mg 05/06/21 09:58 Imodium 2 Mg PO 06/05/21 09:57 Q6H/PRN PRN DIARRHEA Losartan Potassium 50 mg 05/06/21 10:00 05/08/21 10:08 Cozaar 50 Mg PO 06/05/21 09:59 50 mg DAILY DRAKE Administration Magnesium Oxide 400 mg 05/06/21 10:00 05/08/21 10:05 Mag-Ox 400 PO 06/05/21 09:59 400 mg DAILY DRAKE Administration Metoprolol Tartrate 100 mg 05/06/21 10:15 05/06/21 10:30 Lopressor 50 Mg PO 06/05/21 10:14 50 mg BID DRAKE Administration Metoprolol Tartrate 50 mg 05/06/21 22:00 05/06/21 21:07 Lopressor 50 Mg PO 06/05/21 21:59 50 mg BID DRAKE Administration Metoprolol Tartrate 100 mg 05/07/21 07:39 05/08/21 10:05 Lopressor 50 Mg PO 06/05/21 21:59 100 mg BID DRAKE Administration Metronidazole 500 mg 05/06/21 10:00 05/08/21 10:04 Flagyl 500 Mg PO 05/10/21 22:01 500 mg TID DRAKE Administration Pantoprazole Sodium 40 mg 05/06/21 10:00 05/06/21 08:14 Protonix 40 Mg Iv IV 06/05/21 09:59 40 mg Q24H10 DRAKE Administration Pantoprazole Sodium 40 mg 05/07/21 10:00 05/08/21 10:05 Protonix 40mg Tablet PO 06/06/21 09:59 40 mg DAILY DRAKE Administration Potassium Bicarbonate 50 meq 05/05/21 21:00 05/05/21 21:13 K-Lyte 25 Meq PO 05/05/21 21:01 50 meq STAT ONE Administration Potassium Bicarbonate Confirm 05/05/21 21:09 K-Lyte 25 Meq Administered 05/05/21 21:10 Dose 50 meq .ROUTE .STK-MED ONE Potassium Chloride 40 meq 05/06/21 07:37 05/06/21 08:10 Klor Con 10 Meq PO 05/06/21 07:38 40 meq STAT ONE Administration Potassium Chloride 40 meq 05/06/21 12:00 05/06/21 11:41 Klor Con 10 Meq PO 05/06/21 12:01 40 meq STAT ONE Administration Sucralfate 1 g 05/06/21 12:00 05/08/21 12:07 Carafate 1 Gm PO 06/05/21 11:59 1 g TIDWM DRAKE Administration Tamsulosin HCl 0.4 mg 05/06/21 22:00 05/07/21 21:00 Flomax 0.4 Mg PO 06/05/21 21:59 0.4 mg QHS DRAKE Administration Intake & Output (Last 24 hours) 05/06/21 05/07/21 05/08/21 05/09/21 11:59 11:59 11:59 11:59 Intake Total 60 1740 1130 Output Total 1250 1250 2290 Balance -1190 490 -1160 Weight 82.7 kg 83.2 kg 83.2 kg Laboratory Results (Last 24 hours) 05/08/21 05/08/21 05/07/21 12:02 07:34 20:54 POC Glucometer 170 H 101 166 H Orders (Last 24 hours) Category Date Time Status Discharge Routine Discharge 05/08/21 Ordered POCT GLUCOSE Stat Lab 05/07/21 20:54 Completed POCT GLUCOSE Stat Lab 05/08/21 07:34 Completed POCT GLUCOSE Stat Lab 05/08/21 12:02 Completed - Vitals & Intake/Output Vital Signs: Vital Signs Temperature 97.9 F 05/08/21 12:00 Pulse Rate 71 05/08/21 12:00 Respiratory Rate 19 05/08/21 12:00 Blood Pressure 103/47 05/08/21 12:00 O2 Sat by Pulse Oximetry 95 05/08/21 12:00 Intake & Output: Intake & Output 05/06/21 05/07/21 05/08/21 05/09/21 11:59 11:59 11:59 11:59 Intake Total 60 1740 1130 Output Total 1250 1250 2290 Balance -1190 490 -1160 Weight 82.7 kg 83.2 kg 83.2 kg - Lab Result Diagrams: 05/07/21 05:20 05/07/21 05:20 Lab Results-Last 24 Hrs: Lab Results-Last 24 Hours 05/07/21 05/08/21 05/08/21 Range/Units 20:54 07:34 12:02 POC Glucometer 166 H 101 170 H (74 to 106) mg/dL Micro Results-Entire Visit: Accuchecks Date 05/08/21 Date 05/07/21 Time 12:07 Time 21:00 - Procedures and Test Procedures and Tests throughout Hospitalization: Therapy Orders & Screens 05/05/21 22:51 Oxygen Nasal Cannula 2 lpm Comment: 05/05/21 23:44 Respiratory Therapy Assessment DAILY Comment: Diagnosis: CHF exacerbation 05/06/21 13:27 Respiratory Therapy Assessment DAILY Comment: Diagnosis: AFIB W RVR, CP Discharge Exam General Appearance: no apparent distress, alert Neurologic Exam: alert, oriented x 3, cooperative, normal mood/affect, nml cerebellar function, sensation nml, No motor deficits Eye Exam: PERRL, EOMI, eyes nml inspection Ears, Nose, Throat Exam: normal ENT inspection, pharynx normal, moist mucous membranes Neck Exam: normal inspection, non-tender, supple, full range of motion Respiratory Exam: normal breath sounds, lungs clear, No respiratory distress Cardiovascular Exam: regular rate/rhythm, normal heart sounds Gastrointestinal/Abdomen Exam: soft, No tenderness, No mass Male Genitalia Exam: deferred Rectal Exam: deferred Back Exam: normal inspection, normal range of motion, No CVA tenderness, No vertebral tenderness Extremity Exam: normal inspection, normal range of motion Skin Exam: normal color, warm, dry Final Diagnosis/Problem List - Final Discharge Diagnosis/Problem (1) Atrial fib/flutter, transient Status: Acute Code(s): EXP2976 - (2) Acute exacerbation of CHF (congestive heart failure) Status: Resolved Code(s): I50.9 - HEART FAILURE, UNSPECIFIED (3) COPD mixed type Status: Acute Code(s): J44.9 - CHRONIC OBSTRUCTIVE PULMONARY DISEASE, UNSPECIFIED - Discharge Discharge Date: 05/08/21 Disposition: Home, Self-Care Condition: Stable Prescriptions: New Apixaban [Eliquis 2.5 mg Tablet] 5 mg PO BID #60 tablet Furosemide 20 mg [Lasix 20 mg] 20 mg PO QAM #30 tablet Continue Tamsulosin HCl 0.4 mg [Flomax 0.4 MG] 0.4 mg PO QHS Allopurinol 100 mg [Zyloprim 100 mg] 100 mg PO DAILY Sucralfate 1 gm [Carafate 1 GM] 1 gm PO TIDWM Glimepiride 1 mg PO DAILY clonazePAM [Clonazepam] 0.5 mg PO BID Gabapentin 100 mg PO TID Pantoprazole Sodium [Protonix] 40 mg PO DAILY Magnesium Oxide 400 mg [Mag-Ox 400] 400 mg PO DAILY Losartan Potassium [Cozaar] 50 mg PO DAILY Metoprolol Tartrate 100 mg PO BID Levothyroxine Sodium 50 Mcg [Synthroid 50 Mcg] 50 mcg PO DAILY Cholecalciferol (Vitamin D3) [Vitamin D] 1,000 unit PO HS Albuterol 2.5 mg/0.5 ml [PROVENTIL Solution 2.5 MG/0.5 ML] 2.5 mg IH Q 6H PRN PRN PRN Reason: Wheezing Loperamide HCl 2 mg [Imodium 2 mg] 4 mg PO Q6H/PRN PRN 30 Days PRN Reason: Diarrhea Discontinued Metronidazole 500 mg [Flagyl 500 MG] 500 mg PO TID 5 Days tablet Instructions: Atrial Fibrillation (DC) Additional Instructions: rescheduled your appt for on 05/15/21 @ 2:30p.m. in [place] office Follow up with: CHANDANA DUNNE MD [Primary Care Provider] - 05/15/21 2:30 pm Forms: Discharge Instructions
== END 2021-05-08 14:00 | disposition home or self-care (01) | DRG 310 ==
LOC: ED 19:29 → MED SURG 22:47 → OBSVTOIN 05-06 07:20 → ICU 05-06 07:50
PROVIDERS: ADMIT General Practice; ATTEND General Practice
DX: I48.91 Unspecified atrial fibrillation (principal); I48.92 Unspecified atrial flutter; I50.9 Heart failure, unspecified; R07.9 Chest pain, unspecified; I10 Essential (primary) hypertension; E86.0 Dehydration; J44.9 Chronic obstructive pulmonary disease, unspecified; E11.9 Type 2 diabetes mellitus without complications; E78.5 Hyperlipidemia, unspecified; Z79.899 Other long term (current) drug therapy; E78.00 Pure hypercholesterolemia, unspecified; I25.10 Atherosclerotic heart disease of native coronary artery without angina pectoris; I25.2 Old myocardial infarction; Z20.822 Contact with and (suspected) exposure to COVID-19
CPT/HCPCS: 36000; 36415; 71045; 80053; 82947; 83735; 83880; 84484; 85025; 93005; 93041; 93268; 94760; 96374; 99285; G0378; U0003; J0456; J0696; J1940; A9270-GY

== ENCOUNTER 2021-06-29 20:41 | Observation (INO) | payer MEDICARE ==
--- NOTE | 2021-06-29 21:23 | ERPHSYRPT ---
- History of Present Illness Time Seen by Provider: 06/29/21 20:45 Source: patient, family Exam Limitations: no limitations Patient Subjective Stated Complaint: pt's daughter states that pt was c/o headache with elevated bp at e. bp was 184/90. pt also told her that he was blind in both eyes prior to coming to er. before coming insinde. pt stated blindness had resolved. Triage Nursing Assessment: pt alert and oriented, answers questions questions approp. pt back per wheelchair, transfers to stretcher with minimal assist of 1. steady gait noted. respirations nonlabored. skin warm and dry. pupils equal. 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 He denies having any headache or visual disturbance at present. No chest pain but does have some left lower quadrant abdominal discomfort. Denies any focal numbness tingling or weakness. Timing/Duration: hour(s) (2), resolved prior to arrival, sudden, improved Severity: moderate Deficits: no difficulties Baseline/Normal Cognition: alert oriented x 3 Current Cognition: alert oriented x 3 Baseline Gait: walks w/o assistance Associated Symptoms: nausea, vomiting, vision changes, headache Allergies/Adverse Reactions: aspirin Adverse Reaction (Verified 06/29/21 21:18) bleeding Home Medications: Allopurinol 100 mg [Zyloprim 100 mg] 100 mg PO DAILY 08/11/19 [History] Glimepiride 1 mg PO DAILY 08/11/19 [History] Sucralfate 1 gm [Carafate 1 GM] 1 gm PO TIDWM 08/11/19 [History] Tamsulosin HCl 0.4 mg [Flomax 0.4 MG] 0.4 mg PO QHS 08/11/19 [History] clonazePAM [Clonazepam] 0.5 mg PO BID 08/19/19 [History] Gabapentin 100 mg PO TID 02/28/20 [History] Magnesium Oxide 400 mg [Mag-Ox 400] 400 mg PO DAILY 04/08/20 [History] Pantoprazole Sodium [Protonix] 40 mg PO DAILY 04/08/20 [History] Losartan Potassium [Cozaar] 50 mg PO DAILY 05/27/20 [History] Metoprolol Tartrate 100 mg PO BID 02/13/21 [History] Levothyroxine Sodium 50 Mcg [Synthroid 50 Mcg] 50 mcg PO DAILY 03/26/21 [History] Albuterol 2.5 mg/0.5 ml [PROVENTIL Solution 2.5 MG/0.5 ML] 2.5 mg IH Q6H PRN PRN 05/03/21 [History] Cholecalciferol (Vitamin D3) [Vitamin D] 1,000 unit PO HS 05/03/21 [History] Hx Tetanus, Diphtheria Vaccination/Date Given: Yes Hx Influenza Vaccination/Date Given: No Hx Pneumococcal Vaccination/Date Given: No Immunizations Up to Date: Yes Travel Risk - International Travel Have you traveled outside of the country in past 3 weeks: No - Coronavirus Screening Are you exhibiting any of the following symptoms?: No Close contact with a COVID-19 positive Pt in past 14-21 Days: No - Vaccine Status Have you recieved a Covid-19 vaccination: No - Review of Systems Constitutional: No Symptoms Eyes: Vision Changes Ears, Nose, & Throat: No Symptoms Respiratory: No Symptoms Cardiac: No Symptoms Abdominal/Gastrointestinal: Abdominal Pain, Nausea, Vomiting Genitourinary Symptoms: No Symptoms Musculoskeletal: Arthralgias Skin: No Symptoms Neurological: Headache, Sensory Changes Psychological: No Symptoms Endocrine: No Symptoms Hematologic/Lymphatic: No Symptoms Immunological/Allergic: No Symptoms - Past Medical History Pertinent Past Medical History: Yes Neurological History: TIA ENT History: No Pertinent History Cardiac History: Congestive Heart Failure, Coronary Artery Disease, High Cholesterol, Hypertension, Myocardial Infarction ([place]) Respiratory History: CHF, COPD, Pneumonia Endocrine Medical History: Diabetes Type II Musculoskeletal History: Arthritis GI Medical History: GERD, GI Bleed, Hemorrhoids History: No Pertinent History Psycho-Social History: Anxiety Male Reproductive Disorders: Prostate Cancer Other Medical History: Gout, 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 - Past Surgical History Past Surgical History: Yes Neuro Surgical History: No Pertinent History Cardiac: No Pertinent History Respiratory: No Pertinent History Gastrointestinal: Hemorrhoidectomy Genitourinary: No Pertinent History Musculoskeletal: Orthopedic Surgery Male Surgical History: No Pertinent History Other Surgical History: LT ARM - Social History Smoking Status: Former smoker How long have you smoked: 15 Years Exposure to second hand smoke: Yes (DAUGHTER) Drug Use: none Patient Lives Alone: No Significant Family History: no pertinent family hx - Nursing Vital Signs Nursing Vital Signs: Initial Vital Signs Temperature 98.0 F 06/29/21 20:56 Pulse Rate 65 06/29/21 20:56 Respiratory Rate 16 06/29/21 20:56 Blood Pressure 188/82 06/29/21 20:56 O2 Sat by Pulse Oximetry 98 06/29/21 20:56 Pain Scale Pain Intensity 2 - [place] Coma Scale Best Eye Response ([place]): (4) open spontaneously Best Verbal Response ([place]): (5) oriented Best Motor Response ([place]): (6) obeys commands [place] Total: 15 - Physical Exam General Appearance: no apparent distress, alert Eye Exam: bilateral eye: normal inspection, PERRL, EOMI Ears, Nose, Throat Exam: normal ENT inspection Neck Exam: normal inspection, non-tender, supple, full range of motion Respiratory: normal breath sounds, lungs clear Cardiovascular: regular rate/rhythm, normal heart sounds Gastrointestinal: soft, normal bowel sounds, tenderness (Left lower quadrant) Back Exam: normal inspection Extremity Exam: normal inspection, normal range of motion 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, oriented x 3, 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 Exam: normal hearing, normal speech, PERRL, No facial asymmetry, No facial droop Coordination/Gait: normal finger to nose Motor/Sensory: no motor deficit, no sensory deficit, no pronator drift Skin Exam: normal color SpO2 Interpretation: normal SpO2: 98 O2 Delivery: Room Air - Course EKG Interpreted by Me: RATE (63), Sinus Rhythm, NORMAL AXIS, prolonged QT interval, Non-specific ST Changes Ordered Tests: Active Orders 24 hr Category Date Time Status EKG-ER Only STAT Care 06/29/21 21:01 Active IV Insertion STAT Care 06/29/21 21:01 Active NPO (ED) STAT Care 06/29/21 21:01 Active ABDOMEN AND PELVIS W/0 CONTRAS [CT] Stat Exams 06/29/21 21:33 Taken CHEST WITHOUT CONTRAST [CT] Stat Exams 06/29/21 21:[address] ANGIOGRAPHY NECK [CT] Stat Exams 06/29/21 23:15 Ordered CTA HEAD W AND/OR WO CONTRAST [CT] Stat Exams 06/29/21 23:15 Ordered HEAD WITHOUT CONTRAST [CT] Stat Exams 06/29/21 21:01 Taken CBC W DIFF Stat Lab 06/29/21 22:04 Completed CMP Stat Lab 06/29/21 22:04 Completed LIPASE Stat Lab 06/29/21 22:04 Completed Manual Differential NC Stat Lab 06/29/21 22:04 Completed TROPONIN Q3H Lab 06/29/21 22:04 Completed TROPONIN Q3H Lab 06/30/21 00:15 Ordered TROPONIN Q3H Lab 06/30/21 03:15 Ordered TROPONIN Q3H Lab 06/30/21 06:15 Ordered TROPONIN Q3H Lab 06/30/21 09:15 Ordered UA W/RFX UR CULTURE Stat Lab 06/29/21 21:01 Ordered Transfer Order Routine Transfer 06/29/21 Ordered Lab/Rad Data: Laboratory Result Diagrams 06/29/21 22:04 06/29/21 22:04 Laboratory Results 06/29/21 06/29/21 06/29/21 Range/Units 22:04 22:04 22:04 WBC 5.0 (4.0-10.5) K/mm3 RBC 4.01 L (4.1-5.6) M/mm3 Hgb 9.8 L (12.5-18.0) gm/dl Hct 32.8 L (42-50) % MCV 81.8 (78-100) fl MCH 24.4 L (26-32) pg MCHC 29.9 L (32-36) g/dl RDW 17.4 H (11.5-14.0) % Plt Count 120 L (150-450) K/mm3 MPV 9.8 (7.5-11.0) fl Sodium 140 (137-145) mmol/L Potassium 3.8 (3.5-5.1) mmol/L Chloride 105 (98-107) mmol/L Carbon Dioxide 25 (22-30) mmol/L Anion Gap 14.6 (5-15) MEQ/L BUN 15 (9-20) mg/dL Creatinine 1.53 H (0.66-1.25) mg/dL Estimated GFR 45.8 ML/MIN Glucose 106 (74-106) mg/dL Calcium 8.4 (8.4-10.2) mg/dL Total Bilirubin 0.50 (0.2-1.3) mg/dL AST 16 L (17-59) U/L ALT 13 (0-50) U/L Alkaline Phosphatase 127 H (38-126) U/L Troponin I < 0.012 (0.000-0.034) ng/mL Serum Total Protein 6.1 L (6.3-8.2) g/dL Albumin 3.5 (3.5-5.0) g/dL Lipase 106 (23-300) U/L - Progress Progress: improved, re-examined Progress Note: 06/29/21 23:26 Patient is made stroke activated, prompt CT head is obtained without contrast which is negative. EKG showed A. fib rate controlled. Discussed with tele neurologist, reviewed history and current work-up, recommended obtaining CTA head neck and will call him back. Neurology also recommended admission to [facility] with aspirin Plavix and further stroke work-up like MRI without contrast and echo in the morning. I discussed with daughter who is the POA about starting aspirin Plavix, went over the risk and benefits as patient does have a history of GI bleed and they refused to have any antiplatelet therapy. 06/29/21 23:[address] Chinchilla. Discussed with .: Thad, Other Counseled pt/family regarding: lab results, diagnosis, rad results - Departure Departure Disposition: Observation Clinical Impression: TIA (transient ischemic attack), HTN (hypertension) Condition: Stable Critical Care Time: No Referrals: CHANDANA DUNNE MD [Primary Care Provider] - Follow up/PCP as directed
[2021-06-29 22:12] LABS: Hematocrit 32.8 % (42-50); Hemoglobin 9.8 gm/dl (12.5-18.0); Mean Cell Volume 81.8 fl (78-100); Mean Corpuscular Hemoglobin 24.4 pg (26-32); Mean Corpuscular Hgb Concent. 29.9 g/dl (32-36); Mean Platelet Volume 9.8 fl (7.5-11.0); Platelet Count 120 K/mm3 (150-450); Red Blood Count 4.01 M/mm3 (4.1-5.6); Red Cell Distribution Width 17.4 % (11.5-14.0)
[2021-06-29 22:24] LABS: ALBUMIN 3.5 g/dL (3.5-5.0); ANION GAP 14.6 MEQ/L (5-15); BILIRUBIN,TOTAL 0.5 mg/dL (0.2-1.3); Calcium 8.4 mg/dL (8.4-10.2); Creatinine 1 1.53 mg/dL (0.66-1.25); EST GLOMERULAR FILTRATION RATE 45.8 ML/MIN; Potassium 3.8 mmol/L (3.5-5.1); Total Protein 6.1 g/dL (6.3-8.2)
[2021-06-30 00:04] LABS: Eosinophil 1 % (0.00-3.0); Lymphocytes 37 % (24-44); Monocyte 11 % (0.0-12.0); Neutrophils 51 % (36.-66.); Total Cells Counted 100
[2021-06-30 00:05] LABS: ANISOCYTOSIS 2+; Platelet Estimate NORMAL (NORMAL); Poikilocytosis 2+
[2021-06-30 01:15] LABS: INFLUENZA A NEGATIVE (NEGATIVE); INFLUENZA B NEGATIVE (NEGATIVE); RESPIRATORY SYNCTIAL VIRUS NEGATIVE (Negative); SARS-CoV-2 Xpert Express NEGATIVE (NEGATIVE)
[2021-06-30 01:28] LABS: Appearance CLEAR (CLEAR); Bilirubin NEGATIVE (NEGATIVE); Blood NEGATIVE Ery/ul (0-5); Glucose NEGATIVE (NEGATIVE); Ketones NEGATIVE (NEGATIVE); Leukocyte Esterase NEGATIVE (NEGATIVE); Nitrite NEGATIVE (NEGATIVE); Protein,Urine Dip NEGATIVE (Negative); Specific Gravity 1.006 (1.005-1.025); Urobilinogen NEGATIVE mg/dL (0-1)
[2021-06-30] MEDS ORDERED: DUONEB 0.5-3 MG/3 ml Neb IH PRN (01:43)
[2021-06-30] MEDS ORDERED: TYLENOL 325 MG PO PRN (01:43)
[2021-06-30] MEDS ORDERED: HUMALOG SQ PRN (01:43)
[2021-06-30] MEDS ORDERED: Zofran 4 MG/2 ML VIAL IV PRN (01:43)
[2021-06-30 05:45] LABS: Hemoglobin 9.8 gm/dl (12.5-18.0); Mean Cell Volume 81.9 fl (78-100); Mean Corpuscular Hemoglobin 24.3 pg (26-32); Mean Corpuscular Hgb Concent. 29.7 g/dl (32-36); Mean Platelet Volume 11.1 fl (7.5-11.0); Platelet Count 119 K/mm3 (150-450); Red Blood Count 4.03 M/mm3 (4.1-5.6); Red Cell Distribution Width 17.4 % (11.5-14.0); White Blood Count 4.5 K/mm3 (4.0-10.5)
[2021-06-30 06:12] LABS: ALBUMIN 3.1 g/dL (3.5-5.0); ANION GAP 14.4 MEQ/L (5-15); BILIRUBIN,TOTAL 0.7 mg/dL (0.2-1.3); Calcium 8.5 mg/dL (8.4-10.2); Creatinine 1 1.24 mg/dL (0.66-1.25); EST GLOMERULAR FILTRATION RATE 58.3 ML/MIN; Potassium 3.4 mmol/L (3.5-5.1); Total Protein 5.6 g/dL (6.3-8.2)
[2021-06-30 06:51] LABS: ANISOCYTOSIS 1+; Eosinophil 1 % (0.00-3.0); Lymphocytes 50 % (24-44); Monocyte 8 % (0.0-12.0); Neutrophils 41 % (36.-66.); Platelet Estimate NORMAL (NORMAL); Poikilocytosis 1+; Polychromasia 1+; Total Cells Counted 100
--- NOTE | 2021-06-30 08:37 | XRAY ---
Indication: Headache, nausea, vomiting, vision loss, and stroke symptoms. High blood pressure. Multiple contiguous axial images obtained through the head without contrast. Comparison: March 26, 2021. Again age-appropriate global atrophy, mild periventricular degenerative micro-ischemia, tiny left basal ganglia remote lacunar infarct, and small right frontal calcified meningioma. No acute intracranial hemorrhage, abnormal extra-axial fluid collection, or mass effect. Fourth ventricle is midline without hydrocephalus. Bony calvarium intact. Visualized paranasal sinuses and mastoid air cells are clear. Impression: Continued nonacute CT head without contrast exam again with chronic features as detailed. Comment: Preliminary interpretation made by C. No critical discrepancy.
--- NOTE | 2021-06-30 08:44 | XRAY ---
Indication: Headache, nausea, vomiting, vision loss, and stroke symptoms. High blood pressure. Conventional contrast enhanced CTA neck performed using 80 cc Isovue 370 contrast. Two-dimensional sagittal and coronal reformatted images obtained. Additional 3-dimensional reformatted images obtained using a separate workstation. ER clinician is aware of patient's poor renal function and wanted exam be performed. Comparison: None. Visualized aortic arch is mildly atherosclerotic without aneurysm/dissection. Normal widely patent branching right brachiocephalic, left common carotid, and left subclavian arteries. Examination of the right carotid circulation demonstrates tortuous proximal common carotid artery. Carotid bulb demonstrates minimal punctate arteriosclerotic calcification. Remaining common carotid, internal carotid, and adrenal carotid arteries are normal in CTA appearance. Examination of the left ty relation also demonstrates tortuous proximal common carotid artery. Carotid bulb demonstrates very minimal punctate arteriosclerotic calcifications. Remaining common carotid, internal carotid, and external carotid arteries are normal in CT appearance. Vertebral arteries are bilaterally normal in CTA appearance. Parotid and submandibular glands are bilaterally symmetric. A few subcentimeter cervical lymph nodes bilaterally. No pathologic cervical/supraclavicular lymphadenopathy. Thyroid gland is atrophic without focal solid/cystic mass. Supra and infraglottic airway widely patent. Osseous structures demineralized with moderate/advanced multilevel cervical thoracic degenerative spondylosis. Patient is edentulous. CTA head and CT chest reported separately. Impression: 1. Very minimal bilateral carotid bulb punctate arteriosclerotic calcifications. 2. Remaining CTA neck with contrast exam is negative. 3. Incidental chronic bony findings. Comment: Preliminary interpretation made by [facility]. No critical discrepancy.
--- NOTE | 2021-06-30 09:01 | XRAY ---
Indication: Headache, nausea, vomiting, vision loss, and stroke symptoms. High blood pressure. Conventional contrast enhanced CTA head performed using 80 cc Isovue 370 contrast. Two-dimensional sagittal and coronal reformatted images obtained. Additional 3-dimensional reformatted images obtained using a separate workstation. ER clinician is aware of patient's poor renal function and wanted exam be performed. Comparison: None. CTA neck and CT head reported separately. Distal internal carotid arteries demonstrates mild parasellar scattered arteriosclerotic calcifications bilaterally. Left parasellar internal carotid artery demonstrates 70-80% stenosis (image 38, series 5). Normal carotid terminus with normal branching anterior cerebral and middle cerebral arteries. The left A1 segment is hypoplastic either developmental versus chronic stenosis. More distal anterior cerebral and middle cerebral arteries are normal in CTA appearance. Posterior circulation demonstrates normal CTA appearance to the basilar artery, left/right posterior cerebral, and left/right superior cerebellar arteries. Venous drainage/sinuses are unremarkable. No abnormal enhancing intra or extra-axial mass. Impression: 1. Bilateral distal internal carotid artery arteriosclerotic calcifications. Focal 70-80% stenosis seen left parasellar segment. 2. Hypoplastic left A1 segment. 3. Remaining CTA head with contrast exam is negative. Comment: Preliminary interpretation made by [facility] who reports mild to moderate stenosis proximal right posterior cerebral artery which I do not appreciate.
--- NOTE | 2021-06-30 09:02 | XRAY ---
Indication: Chest pain. High blood pressure. Multiple contiguous axial images obtained through the chest without contrast. Comparison: June 04, 2020. Lungs again demonstrate moderate bilateral dependent atelectasis and tiny right upper lobe calcified granuloma. Right middle lobe demonstrates new 1 cm indeterminant noncalcified nodule adjacent to the minor fissure. No infiltrate, consolidation, or effusion. Heart is not enlarged. Aorta remains mildly arteriosclerotic without aneurysm. Stable small mediastinal and bilateral hilar calcified nodes. No pathologic mediastinal lymphadenopathy. Stable hiatal hernia with partial intrathoracic stomach. Esophagus is now mildly fluid distended throughout presumed from gastroesophageal reflux. Bony thorax intact again with osteopenia and flowing osteophytes throughout the spine. CT abdomen/pelvis reported separately. Impression: 1. New 1 cm right middle lobe indeterminate noncalcified nodule. Finding possibly granulomatous as there is old granulomatous disease elsewhere. Recommend follow-up per Fleischner guidelines. 2. New fluid distended esophagus presumed from gastroesophageal reflux as there is again hiatal hernia with partial intrathoracic stomach. 3. Stable chronic bony findings. Comment: Preliminary interpretation made by C. No critical discrepancy.
--- NOTE | 2021-06-30 09:06 | XRAY ---
Indication: Chest pain, nausea, and vomiting. Multiple contiguous axial images obtained through the abdomen and pelvis without contrast. Comparison: May 02, 2021. CT chest reported separately. Noncontrast the stomach and bowel loops appear nonobstructed again with minimal scattered colonic diverticulosis. No free fluid/air. Urinary bladder normally distended with now mild circumferential wall thickening either incomplete distention versus cystitis. Gallbladder contracted without gallstones. Stable left renal scarring and enlarged prostate gland. Remaining liver, gallbladder, pancreas, spleen, adrenal glands, kidneys, ureters, and bladder are unremarkable for noncontrast exam. There remains mild aortoiliac calcifications without AAA. Osseous structures intact taken with osteopenia, mild/moderate degenerative changes throughout the spine, and mild bilateral hip degenerative arthropathy. 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 Urinary bladder wall thickening either incomplete distention versus cystitis. 2. Again incidental colonic diverticulosis, left renal scarring, enlarged prostate gland, chronic bony findings, and intramuscular lipomas. Comment: Preliminary interpretation made by [facility]. No critical discrepancy.
[2021-06-30] MEDS ORDERED: APRESOLINE 20 MG/ML INJ IV PRN (09:16)
--- NOTE | 2021-06-30 09:22 | PCM.HP ---
History of Present Illness - Chief Complaint Chief Complaint: TIA HTN History of Present Illness: is a 89 year old male who presented to ER last night c/o headache, visual changes and elevated blood pressure, symptoms came on acutely but have resolved since arrival. Patient has a history of a fib but not on anticoagulation due to GI bleed, he feels well this morning, was seen eating breakfast. He is very hard of hearing but denies any visual changes, no numbness/tingling/weakness or paresthesias, states he ambulated to the restroom with no trouble this morning. - Review of Systems Constitutional: No Fever, No Chills Eyes: Vision Changes (resolved) Respiratory: No Cough, No Short Of Breath Cardiac: No Chest Pain, No Edema, No Syncope Skin: No Rash Neurological: Headache (resolved), No Focal Weakness Medications & Allergies Home Medications: Home Medication List Allopurinol 100 mg [Zyloprim 100 mg] 100 mg PO DAILY 08/11/19 [History Confirmed 06/29/21] Glimepiride 1 mg PO DAILY 08/11/19 [History Confirmed 06/29/21] Sucralfate 1 gm [Carafate 1 GM] 1 gm PO TIDWM 08/11/19 [History Confirmed 06/29/21] Tamsulosin HCl 0.4 mg [Flomax 0.4 MG] 0.4 mg PO QHS 08/11/19 [History Confirmed 06/29/21] clonazePAM [Clonazepam] 0.5 mg PO BID 08/19/19 [History Confirmed 06/29/21] Gabapentin 100 mg PO TID 02/28/20 [History Confirmed 06/29/21] Magnesium Oxide 400 mg [Mag-Ox 400] 400 mg PO DAILY 04/08/20 [History Confirmed 06/29/21] Pantoprazole Sodium [Protonix] 40 mg PO DAILY 04/08/20 [History Confirmed 06/29/21] Losartan Potassium [Cozaar] 50 mg PO DAILY 05/27/20 [History Confirmed 06/29/21] Metoprolol Tartrate 100 mg PO BID 02/13/21 [History Confirmed 06/29/21] Levothyroxine Sodium 50 Mcg [Synthroid 50 Mcg] 50 mcg PO DAILY 03/26/21 [History Confirmed 06/29/21] Albuterol 2.5 mg/0.5 ml [PROVENTIL Solution 2.5 MG/0.5 ML] 2.5 mg IH Q6H P RN PRN 05/03/21 [History Confirmed 06/29/21] Cholecalciferol (Vitamin D3) [Vitamin D] 1,000 unit PO HS 05/03/21 [History Confirmed 06/29/21] Loperamide HCl 2 mg [Imodium 2 mg] 4 mg PO Q6H/PRN PRN 30 Days 05/04/21 [Rx Confirmed 06/29/21] Furosemide 20 mg [Lasix 20 mg] 20 mg PO QAM #30 tablet 05/08/21 [Rx Confirmed 06/29/21] Allergies/Adverse Reactions: Allergies Allergy/AdvReac Type Severity Reaction Status Date / Time aspirin AdvReac Verified 06/29/21 21:18 - Past Medical History Past Medical History: Yes Neurological History: TIA ENT History: No Pertinent History Cardiac History: Congestive Heart Failure, Coronary Artery Disease, High Cholesterol, Hypertension, Myocardial Infarction ([place]) Respiratory History: CHF, COPD, Pneumonia Endocrine Medical History: Diabetes Type II Musculoskelatal History: Arthritis GI Medical History: GERD, GI Bleed, Hemorrhoids History: No Pertinent History Pyscho-Social History: Anxiety Male Reproductive Disorders: Prostate Cancer Comment: Gout, 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, HX Prostate CX - Past Surgical History Past Surgical History: Yes Neuro Surgical History: No Pertinent History Cardiac History: No Pertinent History Respiratory Surgery: No Pertinent History GI Surgical History: Hemorrhoidectomy Genitourinary Surgical Hx: No Pertinent History Musculskeletal Surgical Hx: Orthopedic Surgery Male Surgical History: No Pertinent History Other Surgical History: LT ARM - Social History Smoking Status: Former smoker How long have you smoked: 15 Years Exposure to second hand smoke: Yes (DAUGHTER) Alcohol: None Drug Use: none Significant Family History: no pertinent family hx - Physical Exam Vital Signs: Vital Signs - 24 hr Temp Pulse Resp BP Pulse Ox 06/30/21 07:57 97.7 F 64 13 197/94 92 L 06/30/21 04:59 68 16 92 L 06/30/21 02:05 96.9 F 65 16 177/86 97 06/30/21 01:09 67 17 175/86 95 06/29/21 23:59 98 06/29/21 22:47 60 16 200/97 95 06/29/21 20:56 98.0 F 65 16 188/82 98 General Appearance: no apparent distress, other (very hard of hearing) Neurologic Exam: alert, cooperative, hip hop performers II-XII nml as tested, No motor deficits , No sensory deficit, No slurred speech Eye Exam: PERRL/EOMI, eyes nml inspection Respiratory Exam: normal breath sounds, lungs clear, No respiratory distress Cardiovascular Exam: irregular Gastrointestinal/Abdomen Exam: soft, normal bowel sounds, No tenderness, No mass Results - Labs Lab/Micro Results: Lab Results-Last 24 Hours 06/29/21 06/29/21 06/29/21 Range/Units 22:04 22:04 22:04 WBC 5.0 (4.0-10.5) K/mm3 RBC 4.01 L (4.1-5.6) M/mm3 Hgb 9.8 L (12.5-18.0) gm/dl Hct 32.8 L (42-50) % MCV 81.8 (78-100) fl MCH 24.4 L (26-32) pg MCHC 29.9 L (32-36) g/dl RDW 17.4 H (11.5-14.0) % Plt Count 120 L (150-450) K/mm3 MPV 9.8 (7.5-11.0) fl Segmented Neutrophils 51 (36.-66.) % Lymphocytes (Manual) 37 (24-44) % Monocytes (Manual) 11 (0.0-12.0) % Eosinophils (Manual) 1 (0.00-3.0) % Platelet Estimate NORMAL (NORMAL) RBC Morphology ABNORMAL Polychromasia Poikilocytosis 2+ Anisocytosis 2+ Sodium 140 (137-145) mmol/L Potassium 3.8 (3.5-5.1) mmol/L Chloride 105 (98-107) mmol/L Carbon Dioxide 25 (22-30) mmol/L Anion Gap 14.6 (5-15) MEQ/L BUN 15 (9-20) mg/dL Creatinine 1.53 H (0.66-1.25) mg/dL Estimated GFR 45.8 ML/MIN Glucose 106 (74-106) mg/dL POC Glucometer (74 to 106) mg/dL Calcium 8.4 (8.4-10.2) mg/dL Total Bilirubin 0.50 (0.2-1.3) mg/dL AST 16 L (17-59) U/L ALT 13 (0-50) U/L Alkaline Phosphatase 127 H (38-126) U/L Troponin I < 0.012 (0.000-0.034) ng/mL Serum Total Protein 6.1 L (6.3-8.2) g/dL Albumin 3.5 (3.5-5.0) g/dL Lipase 106 (23-300) U/L Urine Color (YELLOW) Urine Appearance (CLEAR) Urine pH (5-6) Ur Specific [place] (1.005-1.025) Urine Protein (Negative) Urine Ketones (NEGATIVE) Urine Blood (0-5) Srinivasan/ul Urine Nitrite (NEGATIVE) Urine Bilirubin (NEGATIVE) Urine Urobilinogen (0-1) mg/dL Ur Leukocyte Esterase (NEGATIVE) Urine WBC (Auto) (0-5) /HPF Urine RBC (Auto) (0-2) /HPF U Epithel Cells (Auto) (FEW) /HPF Urine Bacteria (Auto) (NEGATIVE) /HPF Urine Culture Reflexed (NO) Urine Glucose (NEGATIVE) mg/dL Influenza Type A Ag (NEGATIVE) Influenza Type B Ag (NEGATIVE) RSV (PCR) (Negative) SARS-CoV-2 (PCR) (NEGATIVE) 06/30/21 06/30/21 06/30/21 Range/Units 00:14 01:00 01:09 WBC (4.0-10.5) K/mm3 RBC (4.1-5.6) M/mm3 Hgb (12.5-18.0) gm/dl Hct (42-50) % MCV (78-100) fl MCH (26-32) pg MCHC (32-36) g/dl RDW (11.5-14.0) % Plt Count (150-450) K/mm3 MPV (7.5-11.0) fl Segmented Neutrophils (36.-66.) % Lymphocytes (Manual) (24-44) % Monocytes (Manual) (0.0-12.0) % Eosinophils (Manual) (0.00-3.0) % Platelet Estimate (NORMAL) RBC Morphology Polychromasia Poikilocytosis Anisocytosis Sodium (137-145) mmol/L Potassium (3.5-5.1) mmol/L Chloride (98-107) mmol/L Carbon Dioxide (22-30) mmol/L Anion Gap (5-15) MEQ/L BUN (9-20) mg/dL Creatinine (0.66-1.25) mg/dL Estimated GFR ML/MIN Glucose (74-106) mg/dL POC Glucometer (74 to 106) mg/dL Calcium (8.4-10.2) mg/dL Total Bilirubin (0.2-1.3) mg/dL AST (17-59) U/L ALT (0-50) U/L Alkaline Phosphatase (38-126) U/L Troponin I < 0.012 (0.000-0.034) ng/mL Serum Total Protein (6.3-8.2) g/dL Albumin (3.5-5.0) g/dL Lipase (23-300) U/L Urine Color STRAW (YELLOW) Urine Appearance CLEAR (CLEAR) Urine pH 7.0 (5-6) Ur Specific [place] 1.006 (1.005-1.025) Urine Protein NEGATIVE (Negative) Urine Ketones NEGATIVE (NEGATIVE) Urine Blood NEGATIVE (0-5) Srinivasan/ul Urine Nitrite NEGATIVE (NEGATIVE) Urine Bilirubin NEGATIVE (NEGATIVE) Urine Urobilinogen NEGATIVE (0-1) mg/dL Ur Leukocyte Esterase NEGATIVE (NEGATIVE) Urine WBC (Auto) NONE (0-5) /HPF Urine RBC (Auto) NONE (0-2) /HPF U Epithel Cells (Auto) NONE (FEW) /HPF Urine Bacteria (Auto) NONE (NEGATIVE) /HPF Urine Culture Reflexed NO (NO) Urine Glucose NEGATIVE (NEGATIVE) mg/dL Influenza Type A Ag NEGATIVE (NEGATIVE) Influenza Type B Ag NEGATIVE (NEGATIVE) RSV (PCR) NEGATIVE (Negative) SARS-CoV-2 (PCR) NEGATIVE (NEGATIVE) 06/30/21 06/30/21 06/30/21 Range/Units 04:50 04:50 04:50 WBC 4.5 (4.0-10.5) K/mm3 RBC 4.03 L (4.1-5.6) M/mm3 Hgb 9.8 L (12.5-18.0) gm/dl Hct 33.0 L (42-50) % MCV 81.9 (78-100) fl MCH 24.3 L (26-32) pg MCHC 29.7 L (32-36) g/dl RDW 17.4 H (11.5-14.0) % Plt Count 119 L (150-450) K/mm3 MPV 11.1 H (7.5-11.0) fl Segmented Neutrophils 41 (36.-66.) % Lymphocytes (Manual) 50 H (24-44) % Monocytes (Manual) 8 (0.0-12.0) % Eosinophils (Manual) 1 (0.00-3.0) % Platelet Estimate NORMAL (NORMAL) RBC Morphology ABNORMAL Polychromasia 1+ Poikilocytosis 1+ Anisocytosis 1+ Sodium 139 (137-145) mmol/L Potassium 3.4 L (3.5-5.1) mmol/L Chloride 106 (98-107) mmol/L Carbon Dioxide 23 (22-30) mmol/L Anion Gap 14.4 (5-15) MEQ/L BUN 14 (9-20) mg/dL Creatinine 1.24 (0.66-1.25) mg/dL Estimated GFR 58.3 ML/MIN Glucose 154 H (74-106) mg/dL POC Glucometer (74 to 106) mg/dL Calcium 8.5 (8.4-10.2) mg/dL Total Bilirubin 0.70 (0.2-1.3) mg/dL AST 15 L (17-59) U/L ALT 13 (0-50) U/L Alkaline Phosphatase 122 (38-126) U/L Troponin I < 0.012 (0.000-0.034) ng/mL Serum Total Protein 5.6 L (6.3-8.2) g/dL Albumin 3.1 L (3.5-5.0) g/dL Lipase (23-300) U/L Urine Color (YELLOW) Urine Appearance (CLEAR) Urine pH (5-6) Ur Specific [place] (1.005-1.025) Urine Protein (Negative) Urine Ketones (NEGATIVE) Urine Blood (0-5) Srinivasan/ul Urine Nitrite (NEGATIVE) Urine Bilirubin (NEGATIVE) Urine Urobilinogen (0-1) mg/dL Ur Leukocyte Esterase (NEGATIVE) Urine WBC (Auto) (0-5) /HPF Urine RBC (Auto) (0-2) /HPF U Epithel Cells (Auto) (FEW) /HPF Urine Bacteria (Auto) (NEGATIVE) /HPF Urine Culture Reflexed (NO) Urine Glucose (NEGATIVE) mg/dL Influenza Type A Ag (NEGATIVE) Influenza Type B Ag (NEGATIVE) RSV (PCR) (Negative) SARS-CoV-2 (PCR) (NEGATIVE) 06/30/21 06/30/21 Range/Units 07:10 07:50 WBC (4.0-10.5) K/mm3 RBC (4.1-5.6) M/mm3 Hgb (12.5-18.0) gm/dl Hct (42-50) % MCV (78-100) fl MCH (26-32) pg MCHC (32-36) g/dl RDW (11.5-14.0) % Plt Count (150-450) K/mm3 MPV (7.5-11.0) fl Segmented Neutrophils (36.-66.) % Lymphocytes (Manual) (24-44) % Monocytes (Manual) (0.0-12.0) % Eosinophils (Manual) (0.00-3.0) % Platelet Estimate (NORMAL) RBC Morphology Polychromasia Poikilocytosis Anisocytosis Sodium (137-145) mmol/L Potassium (3.5-5.1) mmol/L Chloride (98-107) mmol/L Carbon Dioxide (22-30) mmol/L Anion Gap (5-15) MEQ/L BUN (9-20) mg/dL Creatinine (0.66-1.25) mg/dL Estimated GFR ML/MIN Glucose (74-106) mg/dL POC Glucometer 112 H (74 to 106) mg/dL Calcium (8.4-10.2) mg/dL Total Bilirubin (0.2-1.3) mg/dL AST (17-59) U/L ALT (0-50) U/L Alkaline Phosphatase (38-126) U/L Troponin I < 0.012 (0.000-0.034) ng/mL Serum Total Protein (6.3-8.2) g/dL Albumin (3.5-5.0) g/dL Lipase (23-300) U/L Urine Color (YELLOW) Urine Appearance (CLEAR) Urine pH (5-6) Ur Specific [place] (1.005-1.025) Urine Protein (Negative) Urine Ketones (NEGATIVE) Urine Blood (0-5) Srinivasan/ul Urine Nitrite (NEGATIVE) Urine Bilirubin (NEGATIVE) Urine Urobilinogen (0-1) mg/dL Ur Leukocyte Esterase (NEGATIVE) Urine WBC (Auto) (0-5) /HPF Urine RBC (Auto) (0-2) /HPF U Epithel Cells (Auto) (FEW) /HPF Urine Bacteria (Auto) (NEGATIVE) /HPF Urine Culture Reflexed (NO) Urine Glucose (NEGATIVE) mg/dL Influenza Type A Ag (NEGATIVE) Influenza Type B Ag (NEGATIVE) RSV (PCR) (Negative) SARS-CoV-2 (PCR) (NEGATIVE) Accuchecks Date 06/30/21 Time 07:50 - Radiology Impressions Radiology Exams & Impressions: Radiology Procedures Category Date Time Status ABDOMEN AND PELVIS W/0 CONTRAS [CT] Stat Exams 06/29/21 21:33 Completed CHEST WITHOUT CONTRAST [CT] Stat Exams 06/29/21 21:[address] ANGIOGRAPHY NECK [CT] Stat Exams 06/29/21 23:15 Completed CTA HEAD W AND/OR WO CONTRAST [CT] Stat Exams 06/29/21 23:15 Completed HEAD WITHOUT CONTRAST [CT] Stat Exams 06/29/21 21:01 Completed Assessment/Plan (1) TIA (transient ischemic attack) Current Visit: Yes Status: Acute Assessment & Plan: symptoms have resolved, family refused asa/plavix recommended by teleneurology so not sure MRI will roving changer at all due to his previous history of GI bleed. plan to treat bp very conservatively, resume home meds and prn hydralazine only for bp >180/110 to permit perfusion of presumed ischemic area Code(s): G45.9 - TRANSIENT CEREBRAL ISCHEMIC ATTACK, UNSPECIFIED (2) Atrial fibrillation Current Visit: Yes Status: Acute Code(s): I48.91 - UNSPECIFIED ATRIAL FIBRILLATION (3) HTN (hypertension) Current Visit: Yes Status: Acute Code(s): I10 - ESSENTIAL (PRIMARY) HYPERTENSION
[2021-06-30] MEDS ORDERED: PROTONIX 40 MG IV IV SCH (10:00)
[2021-06-30] MEDS ORDERED: PROVENTIL Solution 2.5 MG/0.5 ML IH PRN (12:05)
[2021-06-30] MEDS: SYNTHROID 50 MCG PO SCH (12:41)
[2021-06-30] MEDS: Lopressor 50 MG PO SCH ×2 (12:41→22:11)
[2021-06-30] MEDS: MAG-OX 400 PO SCH (12:41)
[2021-06-30] MEDS: LASIX 20 MG PO SCH (12:42)
[2021-06-30] MEDS: ZYLOPRIM 100 MG PO SCH (12:42)
[2021-06-30] MEDS: Cozaar 50 MG PO SCH (12:42)
[2021-06-30] MEDS ORDERED: Carafate 1 GM PO SCH (13:00)
[2021-06-30] MEDS: Carafate SUSPENSION 1000 MG/10 ML PO SCH ×2 (16:26→17:21)
[2021-06-30] MEDS: Neurontin 100 MG PO SCH ×2 (16:31→22:11)
[2021-06-30] MEDS ORDERED: NITRO-DUR 0.2 MG/HR ONE (18:32)
[2021-06-30] MEDS ORDERED: NON-FORMULARY ITEM (Metoprolol Tartrate [Metoprolol Tartrate] 100 MG Tablet) PO SCH (22:00)
[2021-06-30] MEDS: clonazePAM PO SCH (22:11)
[2021-06-30] MEDS: Flomax 0.4 MG PO SCH (22:11)
[2021-07-01 06:43] LABS: Absolute Neutrophil Ct (ANC) 2.17 (1.4-6.9); BASOPHIL % 1.7 % (0.0-0.4); Basophil (Absolute #) 0.08 (0-0.4); Eosinophil % 2.5 % (0.00-5.0); Eosinophil (Absolute #) 0.12 (0-0.5); Hematocrit 34.2 % (42-50); Hemoglobin 10.2 gm/dl (12.5-18.0); Lymphocyte (Absolute #) 1.67 (1.0-4.6); Lymphocytes % 34.6 % (24.0-44.0); Mean Cell Volume 80.9 fl (78-100); Mean Corpuscular Hemoglobin 24.1 pg (26-32); Mean Corpuscular Hgb Concent. 29.8 g/dl (32-36); Monocyte (Absolute #) 0.79 (0.0-1.3); Monocytes % 16.4 % (0.0-12.0); Neutrophil % 44.8 % (36.0-66.0); Platelet Count 114 K/mm3 (150-450); Red Blood Count 4.23 M/mm3 (4.1-5.6); Red Cell Distribution Width 17.5 % (11.5-14.0); White Blood Count 4.8 K/mm3 (4.0-10.5)
[2021-07-01 07:58] LABS: ALBUMIN 3.5 g/dL (3.5-5.0); ALKALINE PHOSPHATASE 128 U/L (38-126); ANION GAP 10.4 MEQ/L (5-15); BLOOD UREA NITROGEN 13 mg/dL (9-20); CHLORIDE 108 mmol/L (98-107); Calcium 8.5 mg/dL (8.4-10.2); Carbon Dioxide 23 mmol/L (22-30); EST GLOMERULAR FILTRATION RATE > 60.0 ML/MIN; Glucose 114 mg/dL (74-106); Potassium 3.3 mmol/L (3.5-5.1); SGOT/AST 16 U/L (17-59); SGPT/ALT 12 U/L (0-50); SODIUM 139 mmol/L (137-145); Total Protein 6.2 g/dL (6.3-8.2)
[2021-07-01 08:33] LABS: TSH, 3RD Generation 3.4 mIU/L (0.47-4.68)
[2021-07-01] MEDS: Carafate SUSPENSION 1000 MG/10 ML PO SCH ×3 (08:45→16:40)
[2021-07-01] MEDS ORDERED: NON-FORMULARY ITEM (Losartan Potassium [Cozaar] 25 MG Tablet) PO SCH (10:00)
[2021-07-01] MEDS ORDERED: PANTOPRAZOLE SODIUM 40 MG PO SCH (10:00)
[2021-07-01] MEDS: Neurontin 100 MG PO SCH ×3 (10:13→22:29)
[2021-07-01] MEDS: LASIX 20 MG PO SCH (10:13)
[2021-07-01] MEDS: Lopressor 50 MG PO SCH ×2 (10:13→22:30)
[2021-07-01] MEDS: Cozaar 50 MG PO SCH (10:13)
[2021-07-01] MEDS: SYNTHROID 50 MCG PO SCH (10:13)
[2021-07-01] MEDS: ZYLOPRIM 100 MG PO SCH (10:14)
[2021-07-01] MEDS: MAG-OX 400 PO SCH (10:14)
[2021-07-01] MEDS: Protonix 40MG Tablet PO SCH (10:14)
[2021-07-01] MEDS: clonazePAM PO SCH ×2 (10:14→22:30)
[2021-07-01] MEDS ORDERED: K-LYTE 25 MEQ PO ONE (12:14)
--- NOTE | 2021-07-01 12:44 | PCM.NOTE ---
Date and Time: 07/01/21 1223 Subjective Assessment: Patient c/o feeling tired. Neuro checks stable through the night per nursing. His B/P remains 170s systolic. Nitropatch was added yesterday afternoon and Hydralazine dose per protocol was given at midnight for elevated B/P. BNP is elevated . Will give IV Lasix 20mg 1 x dose. Potassium low at 3.3 ,started Klyte 25 meq efferves tabs bid. I spoke to daughter re tx to hopefully prevet TIA's using low dos ASA and better B/P control. She had refused starting him on Eliquis due to a GI bleed/black stool a few months ago. She does agree to ASA tx. Objective Exam General Appearance: no apparent distress Neurologic Exam: alert, oriented x 3, cooperative (PILOT STATION) Skin Exam: warm, dry, pale Neck Exam: normal inspection Respiratory Exam: diminished breath sounds Cardiovascular Exam: bradycardia (irregular) Gastrointestinal/Abdomen Exam: soft OBJECTIVE DATA Vital Signs: Vital Signs - 24 hr Temp Pulse Resp BP Pulse Ox 07/01/21 08:00 97.5 F 55 L 14 176/84 95 07/01/21 04:00 97.8 F 67 16 165/79 95 07/01/21 00:00 97.3 F 56 L 18 185/85 95 06/30/21 20:00 97.7 F 55 L 16 168/75 96 06/30/21 16:00 97.5 F 59 L 13 176/86 95 Pain Assessment - Last Documented Pain Intensity 0 Intake and Output: Intake & Output 06/29/21 06/30/21 07/01/21 07/02/21 11:59 11:59 11:59 11:59 Intake Total 420 1320 Output Total 500 1450 Balance -80 -130 Weight 84.9 kg 83.8 kg Lab Results: Lab Results-Last 24 Hours 06/30/21 06/30/21 07/01/21 Range/Units 16:51 21:42 05:47 WBC 4.8 (4.0-10.5) K/mm3 RBC 4.23 (4.1-5.6) M/mm3 Hgb 10.2 L (12.5-18.0) gm/dl Hct 34.2 L (42-50) % MCV 80.9 (78-100) fl MCH 24.1 L (26-32) pg MCHC 29.8 L (32-36) g/dl RDW 17.5 H (11.5-14.0) % Plt Count 114 L (150-450) K/mm3 MPV 10.0 (7.5-11.0) fl Gran % 44.8 (36.0-66.0) % Eos # (Auto) 0.12 (0-0.5) Absolute Lymphs (auto) 1.67 (1.0-4.6) Absolute Monos (auto) 0.79 (0.0-1.3) Lymphocytes % 34.6 (24.0-44.0) % Monocytes % 16.4 H (0.0-12.0) % Eosinophils % 2.5 (0.00-5.0) % Basophils % 1.7 (0.0-0.4) % Absolute Granulocytes 2.17 (1.4-6.9) Basophils # 0.08 (0-0.4) Sodium (137-145) mmol/L Potassium (3.5-5.1) mmol/L Chloride (98-107) mmol/L Carbon Dioxide (22-30) mmol/L Anion Gap (5-15) MEQ/L BUN (9-20) mg/dL Creatinine (0.66-1.25) mg/dL Estimated GFR ML/MIN Glucose (74-106) mg/dL POC Glucometer 98 153 H (74 to 106) mg/dL Calcium (8.4-10.2) mg/dL Total Bilirubin (0.2-1.3) mg/dL AST (17-59) U/L ALT (0-50) U/L Alkaline Phosphatase (38-126) U/L NT-Pro-B Natriuret Pep (0-1800) pg/mL Serum Total Protein (6.3-8.2) g/dL Albumin (3.5-5.0) g/dL TSH 3rd Generation (0.47-4.68) mIU/L 07/01/21 07/01/21 07/01/21 Range/Units 05:50 05:50 11:39 WBC (4.0-10.5) K/mm3 RBC (4.1-5.6) M/mm3 Hgb (12.5-18.0) gm/dl Hct (42-50) % MCV (78-100) fl MCH (26-32) pg MCHC (32-36) g/dl RDW (11.5-14.0) % Plt Count (150-450) K/mm3 MPV (7.5-11.0) fl Gran % (36.0-66.0) % Eos # (Auto) (0-0.5) Absolute Lymphs (auto) (1.0-4.6) Absolute Monos (auto) (0.0-1.3) Lymphocytes % (24.0-44.0) % Monocytes % (0.0-12.0) % Eosinophils % (0.00-5.0) % Basophils % (0.0-0.4) % Absolute Granulocytes (1.4-6.9) Basophils # (0-0.4) Sodium 139 (137-145) mmol/L Potassium 3.3 L (3.5-5.1) mmol/L Chloride 108 H (98-107) mmol/L Carbon Dioxide 23 (22-30) mmol/L Anion Gap 10.4 (5-15) MEQ/L BUN 13 (9-20) mg/dL Creatinine 1.10 (0.66-1.25) mg/dL Estimated GFR > 60.0 ML/MIN Glucose 114 H (74-106) mg/dL POC Glucometer 191 H (74 to 106) mg/dL Calcium 8.5 (8.4-10.2) mg/dL Total Bilirubin 0.60 (0.2-1.3) mg/dL AST 16 L (17-59) U/L ALT 12 (0-50) U/L Alkaline Phosphatase 128 H (38-126) U/L NT-Pro-B Natriuret Pep 2190 H (0-1800) pg/mL Serum Total Protein 6.2 L (6.3-8.2) g/dL Albumin 3.5 (3.5-5.0) g/dL TSH 3rd Generation 3.400 (0.47-4.68) mIU/L Radiology Exams: Radiology Procedures Category Date Time Status ABDOMEN AND PELVIS W/0 CONTRAS [CT] Stat Exams 06/29/21 21:33 Completed CHEST WITHOUT CONTRAST [CT] Stat Exams 06/29/21 21:[address] ANGIOGRAPHY NECK [CT] Stat Exams 06/29/21 23:15 Completed CTA HEAD W AND/OR WO CONTRAST [CT] Stat Exams 06/29/21 23:15 Completed HEAD WITHOUT CONTRAST [CT] Stat Exams 06/29/21 21:01 Completed Assessment/Plan (1) CHF (congestive heart failure) Current Visit: Yes Status: Acute Qualifiers: Heart failure type: unspecified Heart failure chronicity: acute on chronic Qualified Code(s): I50.9 - Heart failure, unspecified Assessment & Plan: add IV lasix and monitor Code(s): I50.9 - HEART FAILURE, UNSPECIFIED (2) Hypokalemia Current Visit: No Status: Acute Assessment & Plan: started Klyte 25meq bid 1st dose now Code(s): E87.6 - HYPOKALEMIA (3) Atrial fibrillation Current Visit: Yes Status: Acute Qualifiers: Atrial fibrillation type: unspecified chronic Qualified Code(s): I48.20 - Chronic atrial fibrillation, unspecified; I48.2 - Chronic atrial fibrillation Assessment & Plan: start ASA low dose,okayed per daughter who refused restarting Eliquis due to Hx black stools months ago. Code(s): I48.91 - UNSPECIFIED ATRIAL FIBRILLATION
[2021-07-01] MEDS: K-LYTE 25 MEQ PO SCH ×2 (12:48→22:30)
[2021-07-01] MEDS: Lasix 20 MG/2 ML IV SCH (12:51)
[2021-07-01] MEDS: ECOTRIN 81 MG PO SCH (15:11)
[2021-07-01] MEDS ORDERED: NITRO-DUR 0.2 MG/HR TD ONE (18:29)
[2021-07-01] MEDS: Flomax 0.4 MG PO SCH (22:29)
[2021-07-02 06:33] LABS: Hematocrit 32.9 % (42-50); Hemoglobin 9.9 gm/dl (12.5-18.0); Mean Cell Volume 81.2 fl (78-100); Mean Corpuscular Hemoglobin 24.4 pg (26-32); Mean Corpuscular Hgb Concent. 30.1 g/dl (32-36); Mean Platelet Volume 10.7 fl (7.5-11.0); Platelet Count 100 K/mm3 (150-450); Red Blood Count 4.05 M/mm3 (4.1-5.6); Red Cell Distribution Width 17.5 % (11.5-14.0); White Blood Count 4.9 K/mm3 (4.0-10.5)
[2021-07-02 07:00] LABS: ALBUMIN 3.3 g/dL (3.5-5.0); ALKALINE PHOSPHATASE 116 U/L (38-126); ANION GAP 9.9 MEQ/L (5-15); BLOOD UREA NITROGEN 16 mg/dL (9-20); CHLORIDE 104 mmol/L (98-107); Carbon Dioxide 27 mmol/L (22-30); Creatinine 1 1.15 mg/dL (0.66-1.25); EST GLOMERULAR FILTRATION RATE > 60.0 ML/MIN; Glucose 127 mg/dL (74-106); Potassium 3.6 mmol/L (3.5-5.1); SGOT/AST 19 U/L (17-59); SGPT/ALT 14 U/L (0-50); SODIUM 138 mmol/L (137-145)
[2021-07-02 07:18] LABS: Eosinophil 4 % (0.00-3.0); Lymphocytes 28 % (24-44); Monocyte 15 % (0.0-12.0); Neutrophils 53 % (36.-66.); Platelet Estimate DECREASED (NORMAL); Total Cells Counted 100
[2021-07-02 07:19] LABS: ANISOCYTOSIS 1+
[2021-07-02 08:20] VITALS: O2SAT 93
[2021-07-02] MEDS: SYNTHROID 50 MCG PO SCH (09:38)
[2021-07-02] MEDS: clonazePAM PO SCH (09:38)
[2021-07-02] MEDS: ZYLOPRIM 100 MG PO SCH (09:38)
[2021-07-02] MEDS: ECOTRIN 81 MG PO SCH (09:38)
[2021-07-02] MEDS: Protonix 40MG Tablet PO SCH (09:38)
[2021-07-02] MEDS: Lopressor 50 MG PO SCH (09:38)
[2021-07-02] MEDS: Neurontin 100 MG PO SCH (09:38)
[2021-07-02] MEDS: MAG-OX 400 PO SCH (09:38)
[2021-07-02] MEDS: Cozaar 50 MG PO SCH (09:38)
[2021-07-02] MEDS: K-LYTE 25 MEQ PO SCH (09:39)
[2021-07-02] MEDS: Carafate SUSPENSION 1000 MG/10 ML PO SCH ×2 (09:39→12:13)
[2021-07-02] MEDS: Lasix 20 MG/2 ML IV SCH (09:45)
[2021-07-02] MEDS: LASIX 20 MG PO SCH (10:30)
[2021-07-02 12:33] VITALS: BP 128/58; PULSE 67
[2021-07-02] MEDS ORDERED: Tums EX 750 MG PO PRN (13:09)
--- NOTE | 2021-07-02 13:12 | PCM.DCORD ---
- Discharge Disposition: Home, Self-Care Condition: Stable Prescriptions: Continue Tamsulosin HCl 0.4 mg [Flomax 0.4 MG] 0.4 mg PO QHS Allopurinol 100 mg [Zyloprim 100 mg] 100 mg PO DAILY Sucralfate 1 gm [Carafate 1 GM] 1 gm PO TIDWM Glimepiride 1 mg PO DAILY clonazePAM [Clonazepam] 0.5 mg PO BID Gabapentin 100 mg PO TID Pantoprazole Sodium [Protonix] 40 mg PO DAILY Magnesium Oxide 400 mg [Mag-Ox 400] 400 mg PO DAILY Losartan Potassium [Cozaar] 50 mg PO DAILY Metoprolol Tartrate 100 mg PO BID Levothyroxine Sodium 50 Mcg [Synthroid 50 Mcg] 50 mcg PO DAILY Cholecalciferol (Vitamin D3) [Vitamin D] 1,000 unit PO HS Albuterol 2.5 mg/0.5 ml [PROVENTIL Solution 2.5 MG/0.5 ML] 2.5 mg IH Q6H PRN PRN PRN Reason: Wheezing Loperamide HCl 2 mg [Imodium 2 mg] 4 mg PO Q6H/PRN PRN 30 Days PRN Reason: Diarrhea Furosemide 20 mg [Lasix 20 mg] 20 mg PO QAM #30 tablet Instructions: High Blood Pressure (DC), Transient Ischemic Attack (DC) Follow up with: CHANDANA DUNNE MD [Primary Care Provider] - Joey Beltran MD [CONSULTING PHYSICIAN] - Forms: Discharge Instructions
== END 2021-07-02 13:35 | disposition home or self-care (01) ==
LOC: ED 20:41 → MED SURG 06-30 01:37
PROVIDERS: ADMIT General Practice; ATTEND General Practice
DX: G45.9 Transient cerebral ischemic attack, unspecified (principal); I48.20 Chronic atrial fibrillation, unspecified; I11.0 Hypertensive heart disease with heart failure; I50.9 Heart failure, unspecified; E11.9 Type 2 diabetes mellitus without complications; J44.9 Chronic obstructive pulmonary disease, unspecified; I25.10 Atherosclerotic heart disease of native coronary artery without angina pectoris; E78.00 Pure hypercholesterolemia, unspecified; E87.6 Hypokalemia; I25.2 Old myocardial infarction; R11.2 Nausea with vomiting, unspecified; R51.9 Headache, unspecified; H53.9 Unspecified visual disturbance; F03.90 Unspecified dementia, unspecified severity, without behavioral disturbance, psychotic disturbance, mood disturbance, and anxiety; Z87.891 Personal history of nicotine dependence; Z79.899 Other long term (current) drug therapy; Z20.828 Contact with and (suspected) exposure to other viral communicable diseases
CPT/HCPCS: 0241U; 36000; 36415; 70450; 70496; 70498; 71250; 74176; 80053; 81001; 82947; 83690; 83880; 84443; 84484; 85025; 93005; 93268; 97161; 99285; G0378; J0360; J1940; A9270-GY

== ENCOUNTER 2021-07-25 00:32 | Emergency (ER) | payer MEDICARE ==
[2021-07-25 02:19] LABS: INR 1.06 (0.8-3.0); PROTIME 12.5 SECONDS (9.4-12.5); PTT 29.6 SECONDS (25.1-36.5)
[2021-07-25 02:21] LABS: Hemoglobin 9.4 gm/dl (12.5-18.0); Mean Cell Volume 82.4 fl (78-100); Mean Corpuscular Hgb Concent. 30.3 g/dl (32-36); Mean Platelet Volume 10.4 fl (7.5-11.0); Platelet Count 133 K/mm3 (150-450); Red Blood Count 3.76 M/mm3 (4.1-5.6); Red Cell Distribution Width 17.5 % (11.5-14.0); White Blood Count 5.3 K/mm3 (4.0-10.5)
--- NOTE | 2021-07-25 02:49 | ERPHSYRPT ---
- History of Present Illness Historian: patient Exam Limitations: other (Very poor historian) Physician History: 89 yo wm w R sternal chest pain which has resolved upon arrival to ER. Pt stated that the pain was sharp and accompanied by N/V/dyspnea/diaphoresis. Pain was 7/10 but 0 upon ER arrival. Pt now has dana-umbilical pain which is rated 2/10. He has a h/o KS/HTN/CHF/DM. Pt denies stents or CABG. He also denies cough/coryza/fever/myalgias. Timing/Duration: other (Before arrival) Activities at Onset: rest Quality: sharpness Location: other Severity of Pain-Max: moderate Severity of Pain-Current: none Modifying Factors: Improves With: nothing Associated Symptoms: nausea, vomiting, shortness of breath, diaphoresis Prior Chest Pain/Cardiac Workup: cardiac cath Nitro Today/Relief: no nitro taken today Aspirin Treatment Today: no aspirin today Allergies/Adverse Reactions: aspirin Adverse Reaction (Verified 07/25/21 02:47) bleeding Home Medications: Allopurinol 100 mg [Zyloprim 100 mg] 100 mg PO DAILY 08/11/19 [History] Glimepiride 1 mg PO DAILY 08/11/19 [History] Sucralfate 1 gm [Carafate 1 GM] 1 gm PO TIDWM 08/11/19 [History] Tamsulosin HCl 0.4 mg [Flomax 0.4 MG] 0.4 mg PO QHS 08/11/19 [History] clonazePAM [Clonazepam] 0.5 mg PO BID 08/19/19 [History] Gabapentin 100 mg PO TID 02/28/20 [History] Magnesium Oxide 400 mg [Mag-Ox 400] 400 mg PO DAILY 04/08/20 [History] Pantoprazole Sodium [Protonix] 40 mg PO DAILY 04/08/20 [History] Losartan Potassium [Cozaar] 50 mg PO DAILY 05/27/20 [History] Metoprolol Tartrate 100 mg PO BID 02/13/21 [History] Levothyroxine Sodium 50 Mcg [Synthroid 50 Mcg] 50 mcg PO DAILY 03/26/21 [History] Albuterol 2.5 mg/0.5 ml [PROVENTIL Solution 2.5 MG/0.5 ML] 2.5 mg IH Q6H P RN PRN 05/03/21 [History] Cholecalciferol (Vitamin D3) [Vitamin D] 1,000 unit PO HS 05/03/21 [H istory] Hx Tetanus, Diphtheria Vaccination/Date Given: Yes Hx Influenza Vaccination/Date Given: No Hx Pneumococcal Vaccination/Date Given: No Travel Risk - Vaccine Status Have you recieved a Covid-19 vaccination: No - Review of Systems Constitutional: No Symptoms Eyes: No Symptoms Ears, Nose, & Throat: No Symptoms Respiratory: No Symptoms, Dyspnea Cardiac: No Symptoms, Chest Pain Abdominal/Gastrointestinal: No Symptoms, Nausea, Vomiting Genitourinary Symptoms: No Symptoms Musculoskeletal: No Symptoms Skin: No Symptoms Neurological: No Symptoms Psychological: No Symptoms Endocrine: No Symptoms Hematologic/Lymphatic: No Symptoms Immunological/Allergic: No Symptoms - Past Medical History Pertinent Past Medical History: Yes Neurological History: TIA ENT History: No Pertinent History Cardiac History: Congestive Heart Failure, Coronary Artery Disease, High Cholesterol, Hypertension, Myocardial Infarction ([place]) Respiratory History: CHF, COPD, Pneumonia Endocrine Medical History: Diabetes Type II Musculoskeletal History: Arthritis GI Medical History: GERD, GI Bleed, Hemorrhoids History: No Pertinent History Psycho-Social History: Anxiety Male Reproductive Disorders: Prostate Cancer Other Medical History: Gout, 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, HX Prostate CX - Past Surgical History Past Surgical History: Yes Neuro Surgical History: No Pertinent History Cardiac: No Pertinent History Respiratory: No Pertinent History Gastrointestinal: Hemorrhoidectomy Genitourinary: No Pertinent History Musculoskeletal: Orthopedic Surgery Male Surgical History: No Pertinent History Other Surgical History: LT ARM - Social History Smoking Status: Former smoker How long have you smoked: 15 Years Exposure to second hand smoke: Yes (DAUGHTER) Drug Use: none Patient Lives Alone: No Significant Family History: no pertinent family hx - Nursing Vital Signs Nursing Vital Signs: Initial Vital Signs Temperature 97.0 F 07/25/21 01:00 Pulse Rate 61 07/25/21 01:00 Respiratory Rate 18 07/25/21 01:00 Blood Pressure 169/73 07/25/21 01:00 O2 Sat by Pulse Oximetry 96 07/25/21 01:00 Pain Scale Pain Intensity 0 - Physical Exam General Appearance: no apparent distress Eye Exam: PERRL/EOMI, eyes nml inspection Ears, Nose, Throat Exam: normal ENT inspection, TMs normal, pharynx normal, moist mucous membranes Neck Exam: normal inspection, non-tender, supple, No meningismus, No mass, No Brudzinski, No Kernig's Respiratory Exam: normal breath sounds, lungs clear, airway intact, No respiratory distress Cardiovascular Exam: regular rate/rhythm, normal heart sounds, normal peripheral pulses, No murmur Gastrointestinal/Abdomen Exam: soft, tenderness (Mild dana-umbilical TTP wo guarding or rebound) Back Exam: normal inspection, normal range of motion, CVA tenderness, No vertebral tenderness Extremity Exam: normal inspection, normal range of motion Neurologic Exam: alert, oriented x 3, cooperative, route carrier II-XII nml as tested, normal mood/affect, nml cerebellar function, nml station & gait, sensation nml, No motor deficits, No sensory deficit Skin Exam: normal color, warm, dry Lymphatic Exam: No adenopathy SpO2 Interpretation: normal O2 Delivery: Oxymizer - Course Nursing assessment & vital signs reviewed: Yes EKG Interpreted by Me: RATE (Sinus lovely/R58/Prolonged QT-QTc/LVH/No acute ST segment changes) - Radiology Exams Chest X-ray Interpretation: Teleradiologist Report (Moderate cardiomegaly/Suspect trace effusion/Nonspecific findings) Ordered Tests: Active Orders 24 hr Category Date Time Status CHEST 1 VIEW (PORTABLE) Routine Exams 07/25/21 Taken CBC Routine Lab 07/25/21 02:00 Completed CMP Routine Lab 07/25/21 02:00 Completed MAGNESIUM Routine Lab 07/25/21 02:00 Completed NT PRO BNP Stat Lab 07/25/21 03:24 Completed PROTIME WITH INR Routine Lab 07/25/21 02:00 Completed PTT Routine Lab 07/25/21 02:00 Completed TROPONIN Routine Lab 07/25/21 02:00 Completed TROPONIN Stat Lab 07/25/21 05:00 Completed Lab/Rad Data: Laboratory Result Diagrams 07/25/21 02:00 07/25/21 02:00 Laboratory Results 07/25/21 07/25/21 07/25/21 Range/Units 05:00 03:24 02:00 WBC (4.0-10.5) K/mm3 RBC (4.1-5.6) M/mm3 Hgb (12.5-18.0) gm/dl Hct (42-50) % MCV (78-100) fl MCH (26-32) pg MCHC (32-36) g/dl RDW (11.5-14.0) % Plt Count (150-450) K/mm3 MPV (7.5-11.0) fl PT 12.5 (9.4-12.5) SECONDS INR 1.06 (0.8-3.0) APTT 29.6 (25.1-36.5) SECONDS Sodium (137-145) mmol/L Potassium (3.5-5.1) mmol/L Chloride (98-107) mmol/L Carbon Dioxide (22-30) mmol/L Anion Gap (5-15) MEQ/L BUN (9-20) mg/dL Creatinine (0.66-1.25) mg/dL Estimated GFR ML/MIN Glucose (74-106) mg/dL Calcium (8.4-10.2) mg/dL Magnesium (1.6-2.3) mg/dL Total Bilirubin (0.2-1.3) mg/dL AST (17-59) U/L ALT (0-50) U/L Alkaline Phosphatase (38-126) U/L Troponin I < 0.012 (0.000-0.034) ng/mL NT-Pro-B Natriuret Pep 1320 (0-1800) pg/mL Serum Total Protein (6.3-8.2) g/dL Albumin (3.5-5.0) g/dL 07/25/21 07/25/21 Range/Units 02:00 02:00 WBC 5.3 (4.0-10.5) K/mm3 RBC 3.76 L (4.1-5.6) M/mm3 Hgb 9.4 L (12.5-18.0) gm/dl Hct 31.0 L (42-50) % MCV 82.4 (78-100) fl MCH 25.0 L (26-32) pg MCHC 30.3 L (32-36) g/dl RDW 17.5 H (11.5-14.0) % Plt Count 133 L (150-450) K/mm3 MPV 10.4 (7.5-11.0) fl PT (9.4-12.5) SECONDS INR (0.8-3.0) APTT (25.1-36.5) SECONDS Sodium 136 L (137-145) mmol/L Potassium 3.4 L (3.5-5.1) mmol/L Chloride 106 (98-107) mmol/L Carbon Dioxide 24 (22-30) mmol/L Anion Gap 9.4 (5-15) MEQ/L BUN 14 (9-20) mg/dL Creatinine 1.18 (0.66-1.25) mg/dL Estimated GFR > 60.0 ML/MIN Glucose 136 H (74-106) mg/dL Calcium 7.9 L (8.4-10.2) mg/dL Magnesium 1.6 (1.6-2.3) mg/dL Total Bilirubin 0.40 (0.2-1.3) mg/dL AST 14 L (17-59) U/L ALT 10 (0-50) U/L Alkaline Phosphatase 127 H (38-126) U/L Troponin I < 0.012 (0.000-0.034) ng/mL NT-Pro-B Natriuret Pep (0-1800) pg/mL Serum Total Protein 5.8 L (6.3-8.2) g/dL Albumin 3.2 L (3.5-5.0) g/dL - Progress Progress: improved Progress Note: 07/25/21 05:51 Pt wo chest pain throughout stay Abdomen pain resolved Counseled pt/family regarding: lab results, diagnosis, need for follow-up, rad results - Departure Departure Disposition: Home Clinical Impression: Abdominal pain, Chest pain Condition: Stable Critical Care Time: No Referrals: CHANDANA DUNNE MD [Primary Care Provider] - Follow up/PCP as directed Instructions: Acute Abdomen (Belly Pain), Chest Pain (DC) Additional Instructions: Follow up with Dr. Dunne in 1-2 days Return to ER for chest pain or shortness of breath
[2021-07-25 02:57] LABS: ALBUMIN 3.2 g/dL (3.5-5.0); ALKALINE PHOSPHATASE 127 U/L (38-126); BLOOD UREA NITROGEN 14 mg/dL (9-20); CHLORIDE 106 mmol/L (98-107); Calcium 7.9 mg/dL (8.4-10.2); Carbon Dioxide 24 mmol/L (22-30); Creatinine 1 1.18 mg/dL (0.66-1.25); EST GLOMERULAR FILTRATION RATE > 60.0 ML/MIN; Glucose 136 mg/dL (74-106); MAGNESIUM 1.6 mg/dL (1.6-2.3); Potassium 3.4 mmol/L (3.5-5.1); SGOT/AST 14 U/L (17-59); SGPT/ALT 10 U/L (0-50); SODIUM 136 mmol/L (137-145); TROPONIN < 0.012 ng/mL (0.000-0.034); Total Protein 5.8 g/dL (6.3-8.2)
[2021-07-25 02:58] LABS: ANION GAP 9.4 MEQ/L (5-15)
[2021-07-25 06:03] VITALS: BP 172/78; PULSE 68; O2SAT 98
--- NOTE | 2021-07-25 09:52 | XRAY ---
Indication: Chest pain. Comparison: May 05, 2021. Portable chest demonstrates new cardiomegaly with small bibasilar effusions concerning for cardiac decompensation/CHF. Also new bilateral mid to lower lung infiltrates versus atelectasis, possible superimposed pneumonia. Stable osteopenia and bony degenerative changes. Comment: Preliminary interpretation made by [facility]. No critical discrepancy.
== END 2021-07-25 06:10 | disposition home or self-care (01) ==
LOC: ED 00:32
DX: R07.9 Chest pain, unspecified (principal); R10.33 Periumbilical pain; R11.2 Nausea with vomiting, unspecified; R06.00 Dyspnea, unspecified; I11.0 Hypertensive heart disease with heart failure; I50.9 Heart failure, unspecified; E78.5 Hyperlipidemia, unspecified; E11.8 Type 2 diabetes mellitus with unspecified complications; Z79.84 Long term (current) use of oral hypoglycemic drugs; Z79.899 Other long term (current) drug therapy
CPT/HCPCS: 36415; 71045; 80053; 83735; 83880; 84484; 85027; 85610; 85730; 99284

== ENCOUNTER 2021-09-05 21:51 | Emergency (ER) | payer MEDICARE ==
--- NOTE | 2021-09-05 21:56 | ERPHSYRPT ---
- History of Present Illness Time Seen by Provider: 09/05/21 21:55 Source: patient Exam Limitations: no limitations Physician History: This is an 89-year-old white male patient of Dr. Dunne who was out with his family outside the home when he suddenly had severe headache and chest discomfort anteriorly. Patient has a history of hypothyroidism, gastroesophageal reflux disease, hypertension, TIAs, CHF, coronary artery disease, elevated cholesterol, COPD, hypertension, anxiety issues and recurrent bronchitis. Patient also had bedbugs and therefore the patient was decontaminated prior to placing him in room 6 in the emergency department. Patient also states he no longer has any chest pain. Patient has not had a fever. He does not have any specific complaints other than the headache. He did not suffer any trauma to the head. Timing/Duration: today Severity: mild Associated Symptoms: chest pain, headaches, No nausea, No vomiting, No abdominal pain, No shortness of breath, No cough Allergies/Adverse Reactions: aspirin Adverse Reaction (Verified 09/05/21 23:01) bleeding Home Medications: Allopurinol 100 mg [Zyloprim 100 mg] 100 mg PO DAILY 08/11/19 [History] Glimepiride 1 mg PO DAILY 08/11/19 [History] Sucralfate 1 gm [Carafate 1 GM] 1 gm PO QID 08/11/19 [History] Tamsulosin HCl 0.4 mg [Flomax 0.4 MG] 0.4 mg PO QHS 08/11/19 [History] Gabapentin 100 mg PO TID 02/28/20 [History] Magnesium Oxide 400 mg [Mag-Ox 400] 400 mg PO DAILY 04/08/20 [History] Pantoprazole Sodium [Protonix] 40 mg PO DAILY 04/08/20 [History] Losartan Potassium [Cozaar] 50 mg PO DAILY 05/27/20 [History] Metoprolol Tartrate 100 mg PO BID 02/13/21 [History] Levothyroxine Sodium 50 Mcg [Synthroid 50 Mcg] 50 mcg PO DAILY 03/26/21 [History] Hx Tetanus, Diphtheria Vaccination/Date Given: Yes Hx Influenza Vaccination/Date Given: No Hx Pneumococcal Vaccination/Date Given: No Travel Risk - International Travel Have you traveled outside of the country in past 3 weeks: No - Coronavirus Screening Are you exhibiting any of the following symptoms?: No Close contact with a COVID-19 positive Pt in past 14-21 Days: No - Vaccine Status Have you recieved a Covid-19 vaccination: No - Review of Systems Constitutional: No Symptoms Eyes: No Symptoms Ears, Nose, & Throat: No Symptoms Respiratory: No Symptoms Cardiac: Chest Pain Abdominal/Gastrointestinal: No Symptoms Genitourinary Symptoms: No Symptoms Musculoskeletal: No Symptoms Skin: No Symptoms Neurological: Headache Psychological: No Symptoms Endocrine: No Symptoms Hematologic/Lymphatic: No Symptoms Immunological/Allergic: No Symptoms All Other Systems: Reviewed and Negative - Past Medical History Pertinent Past Medical History: Yes Neurological History: TIA ENT History: No Pertinent History Cardiac History: Congestive Heart Failure, Coronary Artery Disease, High Cholesterol, Hypertension, Myocardial Infarction ([place]) Respiratory History: CHF, COPD, Pneumonia Endocrine Medical History: Diabetes Type II Musculoskeletal History: Arthritis GI Medical History: GERD, GI Bleed, Hemorrhoids History: No Pertinent History Psycho-Social History: Anxiety Male Reproductive Disorders: Prostate Cancer Other Medical History: Gout, 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, HX Prostate CX - Past Surgical History Past Surgical History: Yes Neuro Surgical History: No Pertinent History Cardiac: No Pertinent History Respiratory: No Pertinent History Gastrointestinal: Hemorrhoidectomy Genitourinary: No Pertinent History Musculoskeletal: Orthopedic Surgery Male Surgical History: No Pertinent History Other Surgical History: LT ARM - Social History Smoking Status: Former smoker How long have you smoked: 15 Years Exposure to second hand smoke: Yes (DAUGHTER) Drug Use: none Patient Lives Alone: No Significant Family History: no pertinent family hx - Nursing Vital Signs Nursing Vital Signs: Initial Vital Signs Temperature 98 F 09/05/21 21:52 Pulse Rate 61 09/05/21 21:52 Respiratory Rate 16 09/05/21 21:52 Blood Pressure 184/78 09/05/21 21:52 O2 Sat by Pulse Oximetry 99 09/05/21 21:52 Pain Scale Pain Intensity 2 - Physical Exam General Appearance: no apparent distress, alert Eye Exam: PERRL/EOMI, eyes nml inspection Ears, Nose, Throat Exam: normal ENT inspection, moist mucous membranes Neck Exam: normal inspection, non-tender, supple, full range of motion Respiratory Exam: normal breath sounds, chest tenderness (Mild central substernal nonradiating aching), lungs clear, airway intact, No respiratory distress Cardiovascular Exam: regular rate/rhythm, normal heart sounds, normal peripheral pulses Gastrointestinal/Abdomen Exam: soft, normal bowel sounds, No tenderness Rectal Exam: not done Back Exam: normal inspection, normal range of motion, No CVA tenderness, No vertebral tenderness Extremity Exam: normal inspection, normal range of motion, pelvis stable Neurologic Exam: alert, oriented x 3, cooperative, track repairer helper II-XII nml as tested, normal mood/affect, sensation nml Skin Exam: normal color, warm, dry Lymphatic Exam: No adenopathy SpO2 Interpretation: normal O2 Delivery: Room Air - Course Nursing assessment & vital signs reviewed: Yes EKG Interpreted by Me: RATE (63), Sinus Rhythm, NORMAL AXIS, NORMAL QRS, NORMAL ST-T, Other (There are no acute ischemic changes on today's EKG. There is borderline prolonged MN interval.) Ordered Tests: Active Orders 24 hr Category Date Time Status EKG-ER Only STAT Care 09/05/21 22:41 Active IV Insertion STAT Care 09/05/21 22:41 Active Pulse Oximetry (ED) STAT Care 09/05/21 22:41 Active CHEST 1 VIEW (PORTABLE) Stat Exams 09/05/21 23:30 Taken HEAD WITHOUT CONTRAST [CT] Stat Exams 09/05/21 22:42 Taken BLOOD CULTURE Stat Lab 09/05/21 23:30 Received CBC W DIFF Stat Lab 09/05/21 22:55 Completed CMP Stat Lab 09/05/21 22:55 Completed COVID AG-BINAX NOW RAPID TEST Stat Lab 09/05/21 23:30 Completed INFLUENZA A+B LAURA Stat Lab 09/05/21 23:30 Completed Manual Differential NC Stat Lab 09/05/21 22:55 Completed [place] Screen Stat Lab 09/05/21 22:55 Completed NT PRO BNP Stat Lab 09/05/21 22:55 Completed TROPONIN Q3H Lab 09/05/21 22:55 Completed TROPONIN Q3H Lab 09/06/21 01:34 Received TROPONIN Q3H Lab 09/06/21 04:45 Ordered TROPONIN Q3H Lab 09/06/21 07:45 Ordered TROPONIN Q3H Lab 09/06/21 10:45 Ordered UA W/RFX UR CULTURE Stat Lab 09/05/21 23:38 Completed Medication Summary Discontinued Medications Generic Name Dose Route Start Last Admin Trade Name Freq PRN Reason Stop Dose Admin Sodium Chloride 500 mls @ 500 mls/hr 09/06/21 00:47 09/06/21 02:09 Sodium Chloride 0.9% 500 Ml IV 09/06/21 01:46 Infused .Q1H ONE Infusion Sodium Chloride Confirm 09/06/21 00:48 Sodium Chloride 0.9% 500 Ml Administered 09/06/21 00:49 Dose 500 mls @ ud IV .STK-MED ONE Lab/Rad Data: Laboratory Result Diagrams 09/05/21 22:55 09/05/21 22:55 Laboratory Results 09/05/21 09/05/21 09/05/21 Range/Units 23:38 23:30 23:30 WBC (4.0-10.5) K/mm3 RBC (4.1-5.6) M/mm3 Hgb (12.5-18.0) gm/dl Hct (42-50) % MCV (78-100) fl MCH (26-32) pg MCHC (32-36) g/dl RDW (11.5-14.0) % Plt Count (150-450) K/mm3 MPV (7.5-11.0) fl Segmented Neutrophils (36.-66.) % Lymphocytes (Manual) (24-44) % Monocytes (Manual) (0.0-12.0) % Eosinophils (Manual) (0.00-3.0) % Platelet Estimate (NORMAL) RBC Morphology Anisocytosis Sodium (137-145) mmol/L Potassium (3.5-5.1) mmol/L Chloride (98-107) mmol/L Carbon Dioxide (22-30) mmol/L Anion Gap (5-15) MEQ/L BUN (9-20) mg/dL Creatinine (0.66-1.25) mg/dL Estimated GFR ML/MIN Glucose (74-106) mg/dL Calcium (8.4-10.2) mg/dL Total Bilirubin (0.2-1.3) mg/dL AST (17-59) U/L ALT (0-50) U/L Alkaline Phosphatase (38-126) U/L Troponin I (0.000-0.034) ng/mL NT-Pro-B Natriuret Pep (0-1800) pg/mL Serum Total Protein (6.3-8.2) g/dL Albumin (3.5-5.0) g/dL Urine Color YELLOW (YELLOW) Urine Appearance CLEAR (CLEAR) Urine pH 6.0 (5-6) Ur Specific [place] 1.010 (1.005-1.025) Urine Protein NEGATIVE (Negative) Urine Ketones NEGATIVE (NEGATIVE) Urine Blood NEGATIVE (0-5) Srinivasan/ul Urine Nitrite NEGATIVE (NEGATIVE) Urine Bilirubin NEGATIVE (NEGATIVE) Urine Urobilinogen NEGATIVE (0-1) mg/dL Ur Leukocyte Esterase NEGATIVE (NEGATIVE) Urine WBC (Auto) NONE (0-5) /HPF Urine RBC (Auto) NONE (0-2) /HPF U Epithel Cells (Auto) NONE (FEW) /HPF Urine Bacteria (Auto) NONE (NEGATIVE) /HPF Urine Culture Reflexed NO (NO) Urine Glucose NEGATIVE (NEGATIVE) mg/dL Monoscreen (Negative) Influenza Type A Ag (NEGATIVE) Influenza Type B Ag (NEGATIVE) SARS-CoV-2 Ag (Rapid) NEGATIVE (NEGATIVE) Group A Strep Antibody NOT DETECTED (NEGATIVE) 09/05/21 09/05/21 09/05/21 Range/Units 23:30 22:55 22:55 WBC (4.0-10.5) K/mm3 RBC (4.1-5.6) M/mm3 Hgb (12.5-18.0) gm/dl Hct (42-50) % MCV (78-100) fl MCH (26-32) pg MCHC (32-36) g/dl RDW (11.5-14.0) % Plt Count (150-450) K/mm3 MPV (7.5-11.0) fl Segmented Neutrophils (36.-66.) % Lymphocytes (Manual) (24-44) % Monocytes (Manual) (0.0-12.0) % Eosinophils (Manual) (0.00-3.0) % Platelet Estimate (NORMAL) RBC Morphology Anisocytosis Sodium (137-145) mmol/L Potassium (3.5-5.1) mmol/L Chloride (98-107) mmol/L Carbon Dioxide (22-30) mmol/L Anion Gap (5-15) MEQ/L BUN (9-20) mg/dL Creatinine (0.66-1.25) mg/dL Estimated GFR ML/MIN Glucose (74-106) mg/dL Calcium (8.4-10.2) mg/dL Total Bilirubin (0.2-1.3) mg/dL AST (17-59) U/L ALT (0-50) U/L Alkaline Phosphatase (38-126) U/L Troponin I < 0.012 (0.000-0.034) ng/mL NT-Pro-B Natriuret Pep (0-1800) pg/mL Serum Total Protein (6.3-8.2) g/dL Albumin (3.5-5.0) g/dL Urine Color (YELLOW) Urine Appearance (CLEAR) Urine pH (5-6) Ur Specific [place] (1.005-1.025) Urine Protein (Negative) Urine Ketones (NEGATIVE) Urine Blood (0-5) Srinivasan/ul Urine Nitrite (NEGATIVE) Urine Bilirubin (NEGATIVE) Urine Urobilinogen (0-1) mg/dL Ur Leukocyte Esterase (NEGATIVE) Urine WBC (Auto) (0-5) /HPF Urine RBC (Auto) (0-2) /HPF U Epithel Cells (Auto) (FEW) /HPF Urine Bacteria (Auto) (NEGATIVE) /HPF Urine Culture Reflexed (NO) Urine Glucose (NEGATIVE) mg/dL Monoscreen POSITIVE (Negative) Influenza Type A Ag NEGATIVE (NEGATIVE) Influenza Type B Ag NEGATIVE (NEGATIVE) SARS-CoV-2 Ag (Rapid) (NEGATIVE) Group A Strep Antibody (NEGATIVE) 09/05/21 09/05/21 Range/Units 22:55 22:55 WBC 5.2 (4.0-10.5) K/mm3 RBC 4.15 (4.1-5.6) M/mm3 Hgb 10.2 L (12.5-18.0) gm/dl Hct 33.4 L (42-50) % MCV 80.5 (78-100) fl MCH 24.6 L (26-32) pg MCHC 30.5 L (32-36) g/dl RDW 17.6 H (11.5-14.0) % Plt Count 152 (150-450) K/mm3 MPV 10.5 (7.5-11.0) fl Segmented Neutrophils 38 (36.-66.) % Lymphocytes (Manual) 43 (24-44) % Monocytes (Manual) 15 H (0.0-12.0) % Eosinophils (Manual) 4 H (0.00-3.0) % Platelet Estimate NORMAL (NORMAL) RBC Morphology ABNORMAL Anisocytosis 1+ Sodium 139 (137-145) mmol/L Potassium 4.0 (3.5-5.1) mmol/L Chloride 105 (98-107) mmol/L Carbon Dioxide 23 (22-30) mmol/L Anion Gap 15.7 H (5-15) MEQ/L BUN 14 (9-20) mg/dL Creatinine 1.26 H (0.66-1.25) mg/dL Estimated GFR 57.3 ML/MIN Glucose 97 (74-106) mg/dL Calcium 8.7 (8.4-10.2) mg/dL Total Bilirubin 0.50 (0.2-1.3) mg/dL AST 18 (17-59) U/L ALT 12 (0-50) U/L Alkaline Phosphatase 137 H (38-126) U/L Troponin I (0.000-0.034) ng/mL NT-Pro-B Natriuret Pep 568 (0-1800) pg/mL Serum Total Protein 6.7 (6.3-8.2) g/dL Albumin 3.9 (3.5-5.0) g/dL Urine Color (YELLOW) Urine Appearance (CLEAR) Urine pH (5-6) Ur Specific [place] (1.005-1.025) Urine Protein (Negative) Urine Ketones (NEGATIVE) Urine Blood (0-5) Srinivasan/ul Urine Nitrite (NEGATIVE) Urine Bilirubin (NEGATIVE) Urine Urobilinogen (0-1) mg/dL Ur Leukocyte Esterase (NEGATIVE) Urine WBC (Auto) (0-5) /HPF Urine RBC (Auto) (0-2) /HPF U Epithel Cells (Auto) (FEW) /HPF Urine Bacteria (Auto) (NEGATIVE) /HPF Urine Culture Reflexed (NO) Urine Glucose (NEGATIVE) mg/dL Monoscreen (Negative) Influenza Type A Ag (NEGATIVE) Influenza Type B Ag (NEGATIVE) SARS-CoV-2 Ag (Rapid) (NEGATIVE) Group A Strep Antibody (NEGATIVE) - Progress Progress: improved, re-examined Progress Note: 09/06/21 00:17 Chest x-ray shows no acute cardiopulmonary process. There is cardiomegaly 09/06/21 02:11 Patient states that he is feeling much better. He does not have a headache and he does not have chest pain. Counseled pt/family regarding: lab results, diagnosis, need for follow-up, rad results - Departure Departure Disposition: Home Clinical Impression: Mononucleosis Condition: Stable Critical Care Time: No Referrals: CHANDANA DUNNE MD [Primary Care Provider] - Follow up/PCP as directed Additional Instructions: Take all your medication as prescribed. Follow-up with your primary care provider for further management
[2021-09-05 23:13] LABS: Hematocrit 33.4 % (42-50); Hemoglobin 10.2 gm/dl (12.5-18.0); Mean Cell Volume 80.5 fl (78-100); Mean Corpuscular Hemoglobin 24.6 pg (26-32); Mean Corpuscular Hgb Concent. 30.5 g/dl (32-36); Mean Platelet Volume 10.5 fl (7.5-11.0); Platelet Count 152 K/mm3 (150-450); Red Blood Count 4.15 M/mm3 (4.1-5.6); Red Cell Distribution Width 17.6 % (11.5-14.0); White Blood Count 5.2 K/mm3 (4.0-10.5)
[2021-09-05 23:44] LABS: ALBUMIN 3.9 g/dL (3.5-5.0); ANION GAP 15.7 MEQ/L (5-15); BILIRUBIN,TOTAL 0.5 mg/dL (0.2-1.3); Calcium 8.7 mg/dL (8.4-10.2); Creatinine 1 1.26 mg/dL (0.66-1.25); EST GLOMERULAR FILTRATION RATE 57.3 ML/MIN; Total Protein 6.7 g/dL (6.3-8.2)
[2021-09-06 00:04] LABS: INFLUENZA A NEGATIVE (NEGATIVE); INFLUENZA B NEGATIVE (NEGATIVE)
[2021-09-06 00:05] LABS: COVID AG -BINAX NOW RAPID TEST NEGATIVE (NEGATIVE)
[2021-09-06 00:45] LABS: Appearance CLEAR (CLEAR); Bilirubin NEGATIVE (NEGATIVE); Blood NEGATIVE Ery/ul (0-5); Glucose NEGATIVE (NEGATIVE); Ketones NEGATIVE (NEGATIVE); Leukocyte Esterase NEGATIVE (NEGATIVE); Nitrite NEGATIVE (NEGATIVE); Protein,Urine Dip NEGATIVE (Negative); Urobilinogen NEGATIVE mg/dL (0-1)
[2021-09-06] MEDS ORDERED: Sodium Chloride 0.9% 500 ML 500 ML IV ONE ×2 (00:47→00:48)
[2021-09-06 02:06] LABS: ANISOCYTOSIS 1+; Eosinophil 4 % (0.00-3.0); Lymphocytes 43 % (24-44); Monocyte 15 % (0.0-12.0); Neutrophils 38 % (36.-66.); Platelet Estimate NORMAL (NORMAL); Total Cells Counted 100
[2021-09-06 02:14] VITALS: BP 180/84; PULSE 65; O2SAT 97
--- NOTE | 2021-09-06 08:52 | XRAY ---
Indication: Headache. High blood pressure. Multiple contiguous axial images obtained through the head without contrast. Comparison: June 29, 2021. Again age-appropriate global atrophy and mild periventricular degenerative micro-ischemia bilaterally. No acute intracranial hemorrhage, abnormal extra-axial fluid collection, or mass effect. Fourth ventricle is midline without hydrocephalus. Bony calvarium intact. Visualized paranasal sinuses and mastoid air cells are clear. Impression: Continued nonacute senile brain. Comment: Preliminary interpretation made by [facility]. No critical discrepancy.
--- NOTE | 2021-09-06 08:54 | XRAY ---
Indication: Chest pain and headache. Suspect Covid 19. Comparison: July 25, 2021. Portable chest slightly underinflated again with a few incidental tiny calcified granulomas. No focal infiltrate, consolidation, or large effusion. Heart remains enlarged again with CT proven large hiatal hernia. Bony thorax intact again with mild osteopenia and degenerative changes. Impression: Nonacute chest with chronic features.
== END 2021-09-06 02:34 | disposition home or self-care (01) ==
LOC: ED 21:51
DX: B27.90 Infectious mononucleosis, unspecified without complication (principal); R51.9 Headache, unspecified; R07.89 Other chest pain; I11.0 Hypertensive heart disease with heart failure; I50.9 Heart failure, unspecified; I25.10 Atherosclerotic heart disease of native coronary artery without angina pectoris; E78.5 Hyperlipidemia, unspecified; J44.9 Chronic obstructive pulmonary disease, unspecified; K21.9 Gastro-esophageal reflux disease without esophagitis; E11.9 Type 2 diabetes mellitus without complications; Z79.84 Long term (current) use of oral hypoglycemic drugs; E03.9 Hypothyroidism, unspecified; Z86.73 Personal history of transient ischemic attack (TIA), and cerebral infarction without residual deficits; Z79.899 Other long term (current) drug therapy
CPT/HCPCS: 36000; 36415; 70450; 71045; 80053; 81001; 83880; 84484; 85025; 86308; 87040; 87400; 87651; 93005; 94760; 99000; 99284

== ENCOUNTER 2021-09-21 13:02 | Emergency (ER) | payer MEDICARE ==
--- NOTE | 2021-09-21 14:29 | ERPHSYRPT ---
- History of Present Illness Time Seen by Provider: 09/21/21 13:59 Source: patient Exam Limitations: no limitations Patient Subjective Stated Complaint: PT HERE FOR COUGH, RUNNY NOSE FOR A COUPLE DAYS AND LOWER RIGHT BACK PAIN SINCE YESTERDAY Triage Nursing Assessment: PT IS ALERT, QAGAN TAYAGUNGIN , FACE MASK IN PLACE, SKIN W.D.P,RESP EASY. DENIES ANY INJURY TO BACK Physician History: 89-year-old with multiple medical problems presented in the ER with chief complaint of flulike symptoms with cough congestion/runny nose, body aches and more right lower back pain. Does have chronic back pain but getting a little worse than usual per daughter. Denies any difficulty breathing, palpitations or chest pain. Timing/Duration: day(s) (2), gradual onset, worse Cough Quality/Degree: moderate, dry cough Possible Cause: no prior episodes Modifying Factors: Worsens With: coughing Associated Symptoms: muscle aches, nasal congestion, nasal drainage, No chest pain/soreness, No shortness of breath Allergies/Adverse Reactions: aspirin Adverse Reaction (Verified 09/21/21 13:46) bleeding Home Medications: Allopurinol 100 mg [Zyloprim 100 mg] 100 mg PO DAILY 08/11/19 [History] Glimepiride 1 mg PO DAILY 08/11/19 [History] Sucralfate 1 gm [Carafate 1 GM] 1 gm PO QID 08/11/19 [History] Tamsulosin HCl 0.4 mg [Flomax 0.4 MG] 0.4 mg PO QHS 08/11/19 [History] Gabapentin 100 mg PO TID 02/28/20 [History] Magnesium Oxide 400 mg [Mag-Ox 400] 400 mg PO DAILY 04/08/20 [History] Pantoprazole Sodium [Protonix] 40 mg PO DAILY 04/08/20 [History] Losartan Potassium [Cozaar] 50 mg PO DAILY 05/27/20 [History] Metoprolol Tartrate 100 mg PO BID 02/13/21 [History] Levothyroxine Sodium 50 Mcg [Synthroid 50 Mcg] 50 mcg PO DAILY 03/26/21 [History] Hx Tetanus, Diphtheria Vaccination/Date Given: Yes Hx Influenza Vaccination/Date Given: No Hx Pneumococcal Vaccination/Date Given: No Immunizations Up to Date: Yes Travel Risk - International Travel Have you traveled outside of the country in past 3 weeks: No - Coronavirus Screening Are you exhibiting any of the following symptoms?: Yes Symptoms: Cough: New Onset Close contact with a COVID-19 positive Pt in past 14-21 Days: No - Vaccine Status Have you recieved a Covid-19 vaccination: No - Review of Systems Constitutional: No Symptoms Eyes: No Symptoms Ears, Nose, & Throat: Nose Congestion, Nose Discharge, Sinus Drainage Respiratory: Cough Cardiac: No Symptoms Abdominal/Gastrointestinal: No Symptoms Genitourinary Symptoms: No Symptoms Musculoskeletal: Back Pain Skin: No Symptoms Neurological: No Symptoms Psychological: No Symptoms Endocrine: No Symptoms Hematologic/Lymphatic: No Symptoms Immunological/Allergic: No Symptoms - Past Medical History Pertinent Past Medical History: Yes Neurological History: TIA ENT History: No Pertinent History Cardiac History: Congestive Heart Failure, Coronary Artery Disease, High Cholesterol, Hypertension, Myocardial Infarction ([place]) Respiratory History: CHF, COPD, Pneumonia Endocrine Medical History: Diabetes Type II Musculoskeletal History: Arthritis GI Medical History: GERD, GI Bleed, Hemorrhoids History: No Pertinent History Psycho-Social History: Anxiety Male Reproductive Disorders: Prostate Cancer Other Medical History: Gout, 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, HX Prostate CX - Past Surgical History Past Surgical History: Yes Neuro Surgical History: No Pertinent History Cardiac: No Pertinent History Respiratory: No Pertinent History Gastrointestinal: Hemorrhoidectomy Genitourinary: No Pertinent History Musculoskeletal: Orthopedic Surgery Male Surgical History: No Pertinent History Other Surgical History: LT ARM - Social History Smoking Status: Former smoker How long have you smoked: 15 Years Exposure to second hand smoke: Yes (DAUGHTER) Drug Use: none Patient Lives Alone: No Significant Family History: no pertinent family hx - Nursing Vital Signs Nursing Vital Signs: Initial Vital Signs Temperature 99.2 F 09/21/21 13:42 Pulse Rate 68 09/21/21 13:42 Respiratory Rate 18 09/21/21 13:42 Blood Pressure 146/69 09/21/21 13:42 O2 Sat by Pulse Oximetry 97 09/21/21 13:42 Pain Scale Pain Intensity 4 - Physical Exam General Appearance: no apparent distress, alert Eye Exam: PERRL/EOMI, eyes nml inspection Ears, Nose, Throat Exam: normal ENT inspection Neck Exam: normal inspection, non-tender, supple, full range of motion Respiratory Exam: normal breath sounds, lungs clear Cardiovascular Exam: regular rate/rhythm, normal heart sounds Gastrointestinal/Abdomen Exam: soft, normal bowel sounds, No tenderness Back Exam: normal inspection, normal range of motion, No CVA tenderness Extremity Exam: normal inspection, normal range of motion Neurologic Exam: alert, oriented x 3, 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, 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 SpO2 Interpretation: normal SpO2: 97 O2 Delivery: Room Air Ordered Tests: Active Orders 24 hr Category Date Time Status CHEST 1 VIEW (PORTABLE) Stat Exams 09/21/21 14:26 Completed COVID AG-BINAX NOW RAPID TEST Stat Lab 09/21/21 14:26 Completed INFLUENZA A+B LAURA Stat Lab 09/21/21 14:26 Completed UA W/RFX UR CULTURE Stat Lab 09/21/21 15:15 Completed Lab/Rad Data: Laboratory Results 09/21/21 09/21/21 Range/Units 15:15 14:26 Urine Color STRAW (YELLOW) Urine Appearance CLEAR (CLEAR) Urine pH 7.0 (5-6) Ur Specific [place] 1.006 (1.005-1.025) Urine Protein NEGATIVE (Negative) Urine Ketones NEGATIVE (NEGATIVE) Urine Blood NEGATIVE (0-5) Srinivasan/ul Urine Nitrite NEGATIVE (NEGATIVE) Urine Bilirubin NEGATIVE (NEGATIVE) Urine Urobilinogen NEGATIVE (0-1) mg/dL Ur Leukocyte Esterase NEGATIVE (NEGATIVE) Urine WBC (Auto) NONE (0-5) /HPF Urine RBC (Auto) NONE (0-2) /HPF U Epithel Cells (Auto) NONE (FEW) /HPF Urine Bacteria (Auto) NONE (NEGATIVE) /HPF Urine Culture Reflexed NO (NO) Urine Glucose NEGATIVE (NEGATIVE) mg/dL Influenza Type A Ag NEGATIVE (NEGATIVE) Influenza Type B Ag NEGATIVE (NEGATIVE) SARS-CoV-2 Ag (Rapid) NEGATIVE (NEGATIVE) - Progress Progress: re-examined Air Movement: good Progress Note: 09/21/21 15:51 89-year-old is evaluated for flulike symptoms with cough congestion. Not in any distress. Lungs bilateral clear to auscultation. Afebrile. Negative flu, Covid and chest x-ray negative for any consolidation. Recommended symptomatic/supportive care and outpatient follow-up. Blood Culture(s) Obtained: No Antibiotics given: No Counseled pt/family regarding: lab results, diagnosis, need for follow-up, rad results - Departure Departure Disposition: Home Clinical Impression: URI with cough and congestion Condition: Stable Critical Care Time: No Referrals: CHANDANA DUNNE MD [Primary Care Provider] - Follow up/PCP as directed (1-2 days for reevaluation) Instructions: Cough, Adult (DC) Additional Instructions: Continue with Mucinex, Tylenol and increase hydration. Outpatient follow-up in 1 to 2 days for reevaluation. Return to ER if having worsening cough, difficulty breathing/fever chills etc.
--- NOTE | 2021-09-21 14:49 | XRAY ---
Indication: Cough. Comparison: September 05, 2021. Portable chest demonstrates new hazy interstitial alveolar opacities in both lung bases without consolidation/large effusion. Heart remains enlarged again with large hiatal hernia. Bony thorax intact again with osteopenia and degenerative changes.
[2021-09-21 15:11] LABS: COVID AG -BINAX NOW RAPID TEST NEGATIVE (NEGATIVE)
[2021-09-21 15:20] LABS: INFLUENZA A NEGATIVE (NEGATIVE); INFLUENZA B NEGATIVE (NEGATIVE)
[2021-09-21 15:28] LABS: Appearance CLEAR (CLEAR); Bilirubin NEGATIVE (NEGATIVE); Blood NEGATIVE Ery/ul (0-5); Glucose NEGATIVE (NEGATIVE); Ketones NEGATIVE (NEGATIVE); Leukocyte Esterase NEGATIVE (NEGATIVE); Nitrite NEGATIVE (NEGATIVE); Protein,Urine Dip NEGATIVE (Negative); Specific Gravity 1.006 (1.005-1.025); Urobilinogen NEGATIVE mg/dL (0-1)
[2021-09-21 15:53] VITALS: O2SAT 97
[2021-09-21 16:18] VITALS: BP 153/63; PULSE 56
== END 2021-09-21 16:17 | disposition home or self-care (01) ==
LOC: ED 13:02
DX: J06.9 Acute upper respiratory infection, unspecified (principal); R05.9 Cough, unspecified; R09.81 Nasal congestion; M79.10 Myalgia, unspecified site; I11.0 Hypertensive heart disease with heart failure; I50.9 Heart failure, unspecified; I25.10 Atherosclerotic heart disease of native coronary artery without angina pectoris; E78.5 Hyperlipidemia, unspecified; J44.9 Chronic obstructive pulmonary disease, unspecified; E11.9 Type 2 diabetes mellitus without complications; Z79.84 Long term (current) use of oral hypoglycemic drugs; Z79.899 Other long term (current) drug therapy
CPT/HCPCS: 71045; 81001; 87400; 99000; 99284

== ENCOUNTER 2021-10-17 01:59 | Emergency (ER) | payer MEDICARE ==
[2021-10-17] MEDS ORDERED: Zofran 4 MG/2 ML VIAL IV ONE (02:43)
[2021-10-17] MEDS ORDERED: PROTONIX 40 MG IV IV ONE ×2 (02:43→03:59)
[2021-10-17] MEDS ORDERED: Sodium Chloride 0.9% 1000 ML 1,000 ML IV SCH (02:45)
[2021-10-17 02:59] LABS: Hematocrit 31.4 % (42-50); Hemoglobin 9.6 gm/dl (12.5-18.0); Mean Cell Volume 79.9 fl (78-100); Mean Corpuscular Hemoglobin 24.4 pg (26-32); Mean Corpuscular Hgb Concent. 30.6 g/dl (32-36); Platelet Count 121 K/mm3 (150-450); Red Blood Count 3.93 M/mm3 (4.1-5.6); White Blood Count 4.9 K/mm3 (4.0-10.5)
[2021-10-17 03:10] LABS: INR 1.05 (0.8-3.0); PROTIME 12.4 SECONDS (9.4-12.5)
[2021-10-17 03:14] LABS: ALBUMIN 3.5 g/dL (3.5-5.0); ANION GAP 10.6 MEQ/L (5-15); BILIRUBIN,TOTAL 0.5 mg/dL (0.2-1.3); Calcium 8.2 mg/dL (8.4-10.2); Creatinine 1 1.22 mg/dL (0.66-1.25); EST GLOMERULAR FILTRATION RATE 59.4 ML/MIN; Potassium 3.4 mmol/L (3.5-5.1); Total Protein 6.3 g/dL (6.3-8.2)
[2021-10-17] MEDS ORDERED: Sodium Chloride 0.9% 1000 ML 1,000 ML ONE (03:59)
[2021-10-17] MEDS ORDERED: Zofran 4 MG/2 ML VIAL ONE (03:59)
--- NOTE | 2021-10-17 04:19 | ERPHSYRPT ---
- History of Present Illness Time Seen by Provider: 10/17/21 02:20 Historian: patient, family Exam Limitations: other (Both patient and daughter are poor historian) Patient Subjective Stated Complaint: Patient c/o "seeing black spots when standing up" and having a headache earlier. No headache or abnormal vision impairments reported by patient at this time. Patient denies any pain or concerns at this time. Daughter states that he had upper right rib pain earlier; patient confirms this complaint but denies any discomfort to this area or any area at this time. Triage Nursing Assessment: Patient brought back to ED in a wheelchair accompanied by his daughter. He is hard of hearing with impaired vision; wears glasses with a diagnosis of cataracts. Patient was able to transfer from the chair to the bed with standby to minimal assist of 1 staff. Patient transfers/ambulates with 2 canes at home per daughter. No abnormal weakness noted during transfer. MARA GUTIÉRREZ. Physician History: Patient is an 89-year-old male who presents with multiple complaints such as headache weakness right upper quadrant pain weakness in the legs he says when he stands up he has dark spots in his visual field his entire body feels numb he has had some left chest pain he denies any fever chills or sweats he has had nausea and has vomited 4 times this evening. Timing/Duration: today Activities at Onset: rest Quality: cramping Abdominal Pain Onset Location: RUQ Pain Radiation: no radiation Severity of Pain-Max: moderate Severity of Pain-Current: moderate Modifying Factors: Improves With: vomiting Associated Symptoms: headache, nausea, vomiting, weakness Previous symptoms: same symptoms as today Allergies/Adverse Reactions: aspirin Adverse Reaction (Verified 10/17/21 02:13) bleeding Home Medications: Allopurinol 100 mg [Zyloprim 100 mg] 100 mg PO DAILY 08/11/19 [History] Glimepiride 1 mg PO DAILY 08/11/19 [History] Sucralfate 1 gm [Carafate 1 GM] 1 gm PO QID 08/11/19 [History] Tamsulosin HCl 0.4 mg [Flomax 0.4 MG] 0.4 mg PO QHS 08/11/19 [History] Gabapentin 100 mg PO TID 02/28/20 [History] Magnesium Oxide 400 mg [Mag-Ox 400] 400 mg PO DAILY 04/08/20 [History] Pantoprazole Sodium [Protonix] 40 mg PO DAILY 04/08/20 [History] Losartan Potassium [Cozaar] 50 mg PO DAILY 05/27/20 [History] Metoprolol Tartrate 100 mg PO BID 02/13/21 [History] Levothyroxine Sodium 50 Mcg [Synthroid 50 Mcg] 50 mcg PO DAILY 03/26/21 [History] Hx Tetanus, Diphtheria Vaccination/Date Given: Yes Hx Influenza Vaccination/Date Given: No Hx Pneumococcal Vaccination/Date Given: No Immunizations Up to Date: Yes Travel Risk - International Travel Have you traveled outside of the country in past 3 weeks: No - Coronavirus Screening Are you exhibiting any of the following symptoms?: Yes Symptoms: Headaches/Body Aches/Fatigue Close contact with a COVID-19 positive Pt in past 14-21 Days: No - Vaccine Status Have you recieved a Covid-19 vaccination: No - Review of Systems Constitutional: Malaise, Weakness, No Fever, No Chills Eyes: No Symptoms Ears, Nose, & Throat: No Symptoms Respiratory: No Cough, No Dyspnea Cardiac: Chest Pain, No Edema, No Syncope Abdominal/Gastrointestinal: Abdominal Pain (Right upper quadrant), Nausea, Vomiting (4 times), No Diarrhea Genitourinary Symptoms: No Dysuria Musculoskeletal: No Back Pain, No Neck Pain Skin: No Rash Neurological: Headache, No Dizziness, No Focal Weakness, No Sensory Changes Psychological: No Symptoms Endocrine: No Symptoms All Other Systems: Reviewed and Negative - Past Medical History Pertinent Past Medical History: Yes Neurological History: TIA ENT History: Cataracts Cardiac History: Congestive Heart Failure, Coronary Artery Disease, High Cholesterol, Hypertension, Myocardial Infarction ([place]) Respiratory History: CHF, COPD, Pneumonia Endocrine Medical History: Diabetes Type II, Hypothyroidism Musculoskeletal History: Arthritis GI Medical History: GERD, GI Bleed, Hemorrhoids, Hernia History: No Pertinent History Psycho-Social History: Anxiety Male Reproductive Disorders: Prostate Cancer, Prostate Problems Other Medical History: Gout, 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, HX Prostate CX, [place] - Past Surgical History Past Surgical History: Yes Neuro Surgical History: No Pertinent History Cardiac: No Pertinent History Respiratory: No Pertinent History Gastrointestinal: Hemorrhoidectomy Genitourinary: No Pertinent History Musculoskeletal: Orthopedic Surgery Male Surgical History: No Pertinent History Other Surgical History: LT ARM - Social History Smoking Status: Former smoker How long have you smoked: 25 years Exposure to second hand smoke: Yes (DAUGHTER) Drug Use: none Patient Lives Alone: No (With Daughter) Significant Family History: no pertinent family hx - Nursing Vital Signs Nursing Vital Signs: Initial Vital Signs Temperature 98.5 F 10/17/21 02:13 Pulse Rate 69 10/17/21 02:13 Respiratory Rate 18 10/17/21 02:13 Blood Pressure 151/71 10/17/21 02:13 O2 Sat by Pulse Oximetry 96 10/17/21 02:13 Pain Scale Pain Intensity 0 - Physical Exam General Appearance: mild distress Eye Exam: PERRL/EOMI, eyes nml inspection Ears, Nose, Throat Exam: normal ENT inspection, pharynx normal, moist mucous membranes Neck Exam: normal inspection, non-tender, supple, full range of motion Respiratory Exam: normal breath sounds, lungs clear, airway intact, No respiratory distress Cardiovascular Exam: regular rate/rhythm, normal heart sounds Gastrointestinal/Abdomen Exam: tenderness (Right upper quadrant) Back Exam: normal inspection, normal range of motion Extremity Exam: normal inspection, normal range of motion Neurologic Exam: alert, oriented x 3, cooperative Skin Exam: normal color SpO2 Interpretation: normal SpO2: 96 O2 Delivery: Room Air - Course Nursing assessment & vital signs reviewed: Yes EKG Interpreted by Me: RATE (60), Sinus Rhythm, NORMAL AXIS, prolonged QT interval, NORMAL QRS, Other (Prolonged MD interval) - Radiology Exams Chest X-ray Interpretation: Interpreted by me, Other (Chronic changes no acute process identified) - CT Exams Abdomen/Pelvis CT Interpretation: Tele-radiologist Report (CT of the abdomen and pelvis was essentially negative other than questionable foci of infection in the lung bases versus atelectasis bladder wall thickening) Ordered Tests: Active Orders 24 hr Category Date Time Status EKG-ER Only STAT Care 10/17/21 02:43 Active IV Insertion STAT Care 10/17/21 02:43 Active ABDOMEN AND PELVIS W CONTRAST [CT] Stat Exams 10/17/21 02:43 Taken CHEST 1 VIEW (PORTABLE) Stat Exams 10/17/21 02:43 Taken AMYLASE Stat Lab 10/17/21 02:50 Completed CBC W DIFF Stat Lab 10/17/21 02:50 Completed CMP Stat Lab 10/17/21 02:50 Completed LIPASE Stat Lab 10/17/21 02:50 Completed Lactic Acid Stat Lab 10/17/21 02:50 Completed Manual Differential NC Stat Lab 10/17/21 02:50 Completed PROTIME WITH INR Stat Lab 10/17/21 02:50 Completed TROPONIN Q3H Lab 10/17/21 02:50 Completed TROPONIN Q3H Lab 10/17/21 05:45 Ordered TROPONIN Q3H Lab 10/17/21 08:45 Ordered TROPONIN Q3H Lab 10/17/21 11:45 Ordered TROPONIN Q3H Lab 10/17/21 14:45 Ordered UA W/RFX UR CULTURE Stat Lab 10/17/21 02:43 Ordered Medication Summary Generic Name Dose Route Start Last Admin Trade Name Freq PRN Reason Stop Dose Admin Sodium Chloride 1,000 mls @ 100 mls/hr 10/17/21 02:45 10/17/21 05:46 Sodium Chloride 0.9% 1000 Ml IV 11/16/21 02:44 999 mls/hr .Q10H DRAKE Infusion Discontinued Medications Generic Name Dose Route Start Last Admin Trade Name Freq PRN Reason Stop Dose Admin Ondansetron HCl 4 mg 10/17/21 02:43 10/17/21 04:03 Ondansetron Hcl 4 Mg/2 Ml Vial IV 10/17/21 02:44 4 mg STAT ONE Administration Ondansetron HCl Confirm 10/17/21 03:59 Ondansetron Hcl 4 Mg/2 Ml Vial Administered 10/17/21 04:00 Dose 4 mg .ROUTE .STK-MED ONE Pantoprazole Sodium 40 mg 10/17/21 02:43 10/17/21 04:01 Pantoprazole 40 Mg Vial IV 10/17/21 02:44 40 mg STAT ONE Administration Pantoprazole Sodium Confirm 10/17/21 03:59 Pantoprazole 40 Mg Vial Administered 10/17/21 04:00 Dose 40 mg IV .STK-MED ONE Lab/Rad Data: Laboratory Result Diagrams 10/17/21 02:50 10/17/21 02:50 Laboratory Results 10/17/21 10/17/21 10/17/21 Range/Units 02:50 02:50 02:50 WBC (4.0-10.5) K/mm3 RBC (4.1-5.6) M/mm3 Hgb (12.5-18.0) gm/dl Hct (42-50) % MCV (78-100) fl MCH (26-32) pg MCHC (32-36) g/dl RDW (11.5-14.0) % Plt Count (150-450) K/mm3 MPV (7.5-11.0) fl Segmented Neutrophils (36.-66.) % Lymphocytes (Manual) (24-44) % Monocytes (Manual) (0.0-12.0) % Eosinophils (Manual) (0.00-3.0) % Platelet Estimate (NORMAL) RBC Morphology Microcytosis PT 12.4 (9.4-12.5) SECONDS INR 1.05 (0.8-3.0) Sodium 136 L (137-145) mmol/L Potassium 3.4 L (3.5-5.1) mmol/L Chloride 106 (98-107) mmol/L Carbon Dioxide 23 (22-30) mmol/L Anion Gap 10.6 (5-15) MEQ/L BUN 12 (9-20) mg/dL Creatinine 1.22 (0.66-1.25) mg/dL Estimated GFR 59.4 ML/MIN Glucose 139 H (74-106) mg/dL Lactic Acid (0.4-2.0) Calcium 8.2 L (8.4-10.2) mg/dL Total Bilirubin 0.50 (0.2-1.3) mg/dL AST 17 (17-59) U/L ALT 11 (0-50) U/L Alkaline Phosphatase 123 (38-126) U/L Troponin I 0.027 (0.000-0.034) ng/mL Serum Total Protein 6.3 (6.3-8.2) g/dL Albumin 3.5 (3.5-5.0) g/dL Amylase 41 (30-110) U/L Lipase 86 (23-300) U/L 10/17/21 10/17/21 Range/Units 02:50 02:50 WBC 4.9 (4.0-10.5) K/mm3 RBC 3.93 L (4.1-5.6) M/mm3 Hgb 9.6 L (12.5-18.0) gm/dl Hct 31.4 L (42-50) % MCV 79.9 (78-100) fl MCH 24.4 L (26-32) pg MCHC 30.6 L (32-36) g/dl RDW 18.0 H (11.5-14.0) % Plt Count 121 L (150-450) K/mm3 MPV 11.0 (7.5-11.0) fl Segmented Neutrophils 61 (36.-66.) % Lymphocytes (Manual) 30 (24-44) % Monocytes (Manual) 5 (0.0-12.0) % Eosinophils (Manual) 4 H (0.00-3.0) % Platelet Estimate DECREASED (NORMAL) RBC Morphology ABNORMAL Microcytosis 1+ PT (9.4-12.5) SECONDS INR (0.8-3.0) Sodium (137-145) mmol/L Potassium (3.5-5.1) mmol/L Chloride (98-107) mmol/L Carbon Dioxide (22-30) mmol/L Anion Gap (5-15) MEQ/L BUN (9-20) mg/dL Creatinine (0.66-1.25) mg/dL Estimated GFR ML/MIN Glucose (74-106) mg/dL Lactic Acid 1.5 (0.4-2.0) Calcium (8.4-10.2) mg/dL Total Bilirubin (0.2-1.3) mg/dL AST (17-59) U/L ALT (0-50) U/L Alkaline Phosphatase (38-126) U/L Troponin I (0.000-0.034) ng/mL Serum Total Protein (6.3-8.2) g/dL Albumin (3.5-5.0) g/dL Amylase (30-110) U/L Lipase (23-300) U/L - Progress Progress: improved - Departure Departure Disposition: Home Clinical Impression: Pneumonia Condition: Stable Critical Care Time: No Referrals: CHANDANA DUNNE MD [Primary Care Provider] - Follow up/PCP as directed Instructions: Pneumonia, Adult (DC) Prescriptions: Cephalexin Mh 500 mg [Keflex 500 mg] 500 mg PO Q6H 10 Days #40 cap
[2021-10-17 05:57] LABS: Eosinophil 4 % (0.00-3.0); Lymphocytes 30 % (24-44); Microcytosis 1+; Monocyte 5 % (0.0-12.0); Neutrophils 61 % (36.-66.); Platelet Estimate DECREASED (NORMAL); Total Cells Counted 100
[2021-10-17 06:46] VITALS: BP 184/68; PULSE 60; O2SAT 96
--- NOTE | 2021-10-17 08:54 | XRAY ---
Indication: Pain, nausea, and vomiting. Poor historian. Multiple contiguous images obtained through the abdomen and pelvis using 80 cc Isovue 370 contrast. Comparison: June 29, 2021. Lung bases again demonstrates mild bibasilar dependent atelectasis. Heart is now borderline enlarged. Stable small hiatal hernia. Noncontrasted stomach and bowel loops nonobstructed. No free fluid/air. Urinary bladder normally distended again with mild circumferential wall thickening either incomplete distention versus cystitis. Stable enlarged prostate gland and anteriorly rotated right kidney. Gallbladder remains contracted without gallstones or biliary distention. Remaining liver, gallbladder, pancreas, spleen, adrenal glands, kidneys, ureters, and bladder are unremarkable. Again mild scattered aortoiliac calcifications. No AAA or pathologic retroperitoneal lymphadenopathy. Osseous structures intact again with osteopenia, degenerative changes throughout the spine, and mild bilateral hip degenerative arthropathy. 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 Impression: 1. Again circumferential urinary bladder wall thickening either incomplete distention versus cystitis. 2. New borderline cardiomegaly without CHF. 3. Stable small hiatal hernia, enlarged prostate gland, intramuscular lipomas, and chronic bony findings. Comment: Preliminary interpretation made by [facility]. No critical discrepancy.
--- NOTE | 2021-10-17 08:56 | XRAY ---
Indication: Nausea, vomiting, and weakness. Comparison: 2021. Portable chest is now clear again with incidental tiny left apical calcified granuloma. Heart not enlarged again with tortuous descending aorta. No new/acute findings.
== END 2021-10-17 06:47 | disposition home or self-care (01) ==
LOC: ED 01:59
DX: J18.9 Pneumonia, unspecified organism (principal); J44.0 Chronic obstructive pulmonary disease with (acute) lower respiratory infection; R51.9 Headache, unspecified; R53.1 Weakness; R10.11 Right upper quadrant pain; R11.2 Nausea with vomiting, unspecified; I11.0 Hypertensive heart disease with heart failure; I50.9 Heart failure, unspecified; E78.5 Hyperlipidemia, unspecified; E11.9 Type 2 diabetes mellitus without complications; Z79.84 Long term (current) use of oral hypoglycemic drugs; K21.9 Gastro-esophageal reflux disease without esophagitis; Z79.899 Other long term (current) drug therapy
CPT/HCPCS: 36000; 36415; 71045; 74177; 80053; 82150; 83605; 83690; 84484; 85025; 85610; 93005; 96360; 96374; 96375; 99284; J2405

== ENCOUNTER 2021-10-21 19:59 | Observation (INO) | payer MEDICARE ==
[2021-10-21] MEDS ORDERED: Sodium Chloride 0.9% 1000 ML 1,000 ML IV STA (20:21)
--- NOTE | 2021-10-21 20:26 | ERPHSYRPT ---
- History of Present Illness Time Seen by Provider: 10/21/21 20:24 Source: patient, family Exam Limitations: no limitations Patient Subjective Stated Complaint: daughter states "He had a commode full of blood." Triage Nursing Assessment: pt came into the er via wheelchair; pt is axo x4; c/o bloody stool; daughter states pt had a lot of blood in the past stool at 1730; pt denies N/V/D; abd round, soft; tenderness present LUQ; hypoactive bowel so unds in quads; pt states 1/10 pain to abd; pink, moist mucus membranes; skin warm, pink, dry; hypertension Physician History: Patient is 89-year-old male with significant past medical history of coronary artery disease history of prostate cancer hypertension COPD vascular dementia CHF went to the bathroom and has large amount of blood in his toilet so the daughter and noticed it and she brought him to the emergency room patient denies any syncopal episode chest pain nausea vomiting or diarrhea. Timing/Duration: today Severity: moderate Associated Symptoms: denies symptoms Allergies/Adverse Reactions: aspirin Adverse Reaction (Verified 10/21/21 20:09) bleeding Home Medications: Allopurinol 100 mg [Zyloprim 100 mg] 100 mg PO DAILY 08/11/19 [History] Glimepiride 1 mg PO DAILY 08/11/19 [History] Sucralfate 1 gm [Carafate 1 GM] 1 gm PO QID 08/11/19 [History] Tamsulosin HCl 0.4 mg [Flomax 0.4 MG] 0.4 mg PO QHS 08/11/19 [History] Gabapentin 100 mg PO TID 02/28/20 [History] Magnesium Oxide 400 mg [Mag-Ox 400] 400 mg PO DAILY 04/08/20 [History] Pantoprazole Sodium [Protonix] 40 mg PO DAILY 04/08/20 [History] Losartan Potassium [Cozaar] 50 mg PO DAILY 05/27/20 [History] Metoprolol Tartrate 100 mg PO BID 02/13/21 [History] Levothyroxine Sodium 50 Mcg [Synthroid 50 Mcg] 50 mcg PO DAILY 03/26/21 [History] clonazePAM [Clonazepam] 0.5 mg PO BID 10/21/21 [History] Hx Tetanus, Diphtheria Vaccination/Date Given: Yes Hx Influenza Vaccination/Date Given: No Hx Pneumococcal Vaccination/Date Given: No Travel Risk - International Travel Have you traveled outside of the country in past 3 weeks: No - Coronavirus Screening Are you exhibiting any of the following symptoms?: No Close contact with a COVID-19 positive Pt in past 14-21 Days: No - Vaccine Status Have you recieved a Covid-19 vaccination: No - Review of Systems Constitutional: No Fever, No Chills Eyes: No Symptoms Ears, Nose, & Throat: No Symptoms Respiratory: No Cough, No Dyspnea Cardiac: No Chest Pain, No Edema, No Syncope Abdominal/Gastrointestinal: Hematochezia, No Abdominal Pain, No Nausea, No Vomiting, No Diarrhea Genitourinary Symptoms: No Dysuria Musculoskeletal: No Back Pain, No Neck Pain Skin: No Rash Neurological: No Dizziness, No Focal Weakness, No Sensory Changes Psychological: No Symptoms Endocrine: No Symptoms All Other Systems: Reviewed and Negative - Past Medical History Pertinent Past Medical History: Yes Neurological History: TIA ENT History: Cataracts Cardiac History: Congestive Heart Failure, Coronary Artery Disease, High Cholesterol, Hypertension, Myocardial Infarction ([place]) Respiratory History: CHF, COPD, Pneumonia Endocrine Medical History: Diabetes Type II, Hypothyroidism Musculoskeletal History: Arthritis GI Medical History: GERD, GI Bleed, Hemorrhoids, Hernia History: No Pertinent History Psycho-Social History: Anxiety Male Reproductive Disorders: Prostate Cancer, Prostate Problems Other Medical History: Gout, 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, HX Prostate CX, [place] - Past Surgical History Past Surgical History: Yes Neuro Surgical History: No Pertinent History Cardiac: No Pertinent History Respiratory: No Pertinent History Gastrointestinal: Hemorrhoidectomy Genitourinary: No Pertinent History Musculoskeletal: Orthopedic Surgery Male Surgical History: No Pertinent History Other Surgical History: LT ARM - Social History Smoking Status: Former smoker How long have you smoked: 25 years Exposure to second hand smoke: Yes (DAUGHTER) Drug Use: none Patient Lives Alone: No (With Daughter) Significant Family History: no pertinent family hx - Nursing Vital Signs Nursing Vital Signs: Initial Vital Signs Temperature 97.9 F 10/21/21 20:09 Pulse Rate 65 10/21/21 20:09 Respiratory Rate 18 10/21/21 20:09 Blood Pressure 194/102 10/21/21 20:09 O2 Sat by Pulse Oximetry 99 10/21/21 20:09 Pain Scale Pain Intensity 1 - Physical Exam General Appearance: no apparent distress, alert Eye Exam: PERRL/EOMI, eyes nml inspection Ears, Nose, Throat Exam: normal ENT inspection, TMs normal, pharynx normal, moist mucous membranes Neck Exam: normal inspection, non-tender, supple, full range of motion Respiratory Exam: normal breath sounds, lungs clear, No respiratory distress Cardiovascular Exam: regular rate/rhythm, normal heart sounds, normal peripheral pulses Gastrointestinal/Abdomen Exam: soft, normal bowel sounds, No tenderness, No mass Back Exam: normal inspection, normal range of motion, No CVA tenderness, No vertebral tenderness Extremity Exam: normal inspection, normal range of motion, pelvis stable Neurologic Exam: alert, oriented x 3, cooperative, normal mood/affect, nml cerebellar function, nml station & gait, sensation nml, No motor deficits Skin Exam: normal color, warm, dry, No rash Lymphatic Exam: No adenopathy SpO2: 99 - Course Nursing assessment & vital signs reviewed: Yes Ordered Tests: Active Orders 24 hr Category Date Time Status Quarry Supervisor Open Pit STAT Care 10/21/21 20:21 Active IV Insertion STAT Care 10/21/21 20:21 Active IV Insertion-2nd Peripheral STAT Care 10/21/21 20:21 Active CBC W DIFF Stat Lab 10/21/21 20:21 Completed CMP Stat Lab 10/21/21 20:21 Completed FECAL OCCULT BLOOD - SCREENING Stat Lab 10/21/21 20:21 Ordered Manual Differential NC Stat Lab 10/21/21 20:21 Completed Medication Summary Generic Name Dose Route Start Last Admin Trade Name Johnq PRN Reason Stop Dose Admin Sodium Chloride 1,000 mls @ 999 mls/hr 10/21/21 20:21 Sodium Chloride 0.9% 1000 Ml IV 10/21/21 21:21 .Q1H1M STA Lab/Rad Data: Laboratory Result Diagrams 10/21/21 20:21 10/21/21 20:21 Laboratory Results 10/21/21 10/21/21 Range/Units 20:21 20:21 WBC 4.2 (4.0-10.5) K/mm3 RBC 4.27 (4.1-5.6) M/mm3 Hgb 10.4 L (12.5-18.0) gm/dl Hct 34.1 L (42-50) % MCV 79.9 (78-100) fl MCH 24.4 L (26-32) pg MCHC 30.5 L (32-36) g/dl RDW 18.0 H (11.5-14.0) % Plt Count 111 L (150-450) K/mm3 MPV 10.5 (7.5-11.0) fl Sodium 140 (137-145) mmol/L Potassium 3.5 (3.5-5.1) mmol/L Chloride 106 (98-107) mmol/L Carbon Dioxide 25 (22-30) mmol/L Anion Gap 12.4 (5-15) MEQ/L BUN 12 (9-20) mg/dL Creatinine 1.07 (0.66-1.25) mg/dL Estimated GFR > 60.0 ML/MIN Glucose 110 H (74-106) mg/dL Calcium 8.8 (8.4-10.2) mg/dL Total Bilirubin 0.70 (0.2-1.3) mg/dL AST 21 (17-59) U/L ALT 13 (0-50) U/L Alkaline Phosphatase 119 (38-126) U/L Serum Total Protein 6.7 (6.3-8.2) g/dL Albumin 3.9 (3.5-5.0) g/dL - Progress Progress: unchanged Discussed with Dr.: Nighat Alaniz Counseled pt/family regarding: lab results, diagnosis, need for follow-up - Departure Departure Disposition: Observation Clinical Impression: GI (gastrointestinal bleed) Qualifiers: GI bleed type/associated pathology: unspecified gastrointestinal hemorrhage type Qualified Code(s): K92.2 - Gastrointestinal hemorrhage, unspecified Condition: Fair Critical Care Time: Yes Critical Care Time(excluding separately billable procedures): Critical 30-74 mins Referrals: CHANDANA DUNNE MD [Primary Care Provider] - Follow up/PCP as directed Instructions: Gastrointestinal Bleeding (DC)
[2021-10-21 20:30] LABS: Hematocrit 34.1 % (42-50); Hemoglobin 10.4 gm/dl (12.5-18.0); Mean Cell Volume 79.9 fl (78-100); Mean Corpuscular Hemoglobin 24.4 pg (26-32); Mean Corpuscular Hgb Concent. 30.5 g/dl (32-36); Mean Platelet Volume 10.5 fl (7.5-11.0); Platelet Count 111 K/mm3 (150-450); Red Blood Count 4.27 M/mm3 (4.1-5.6); White Blood Count 4.2 K/mm3 (4.0-10.5)
[2021-10-21 20:34] LABS: ALBUMIN 3.9 g/dL (3.5-5.0); ALKALINE PHOSPHATASE 119 U/L (38-126); ANION GAP 12.4 MEQ/L (5-15); BLOOD UREA NITROGEN 12 mg/dL (9-20); CHLORIDE 106 mmol/L (98-107); Calcium 8.8 mg/dL (8.4-10.2); Carbon Dioxide 25 mmol/L (22-30); Creatinine 1 1.07 mg/dL (0.66-1.25); EST GLOMERULAR FILTRATION RATE > 60.0 ML/MIN; Glucose 110 mg/dL (74-106); Potassium 3.5 mmol/L (3.5-5.1); SGOT/AST 21 U/L (17-59); SGPT/ALT 13 U/L (0-50); SODIUM 140 mmol/L (137-145); Total Protein 6.7 g/dL (6.3-8.2)
[2021-10-21] MEDS ORDERED: Sodium Chloride 0.9% 1000 ML 1,000 ML ONE (20:36)
[2021-10-21] MEDS: Sodium Chloride 0.9% 1000 ML 1,000 ML IV SCH (21:28)
[2021-10-21 21:34] LABS: INFLUENZA A NEGATIVE (NEGATIVE); INFLUENZA B NEGATIVE (NEGATIVE); RESPIRATORY SYNCTIAL VIRUS NEGATIVE (Negative); SARS-CoV-2 Xpert Express NEGATIVE (NEGATIVE)
[2021-10-21 22:05] LABS: Basophil 1 % (0.0-1.0); Eosinophil 3 % (0.00-3.0); Lymphocytes 50 % (24-44); Monocyte 5 % (0.0-12.0); Neutrophils 41 % (36.-66.); Total Cells Counted 100
[2021-10-21 22:06] LABS: Microcytosis 1+; Platelet Estimate NORMAL (NORMAL)
--- NOTE | 2021-10-21 22:20 | PCM.HP ---
History of Present Illness - Chief Complaint Chief Complaint: c/o bloody stool for 1 day History of Present Illness: is a 89 year old male.with significant past medical history of coronary artery disease history of prostate cancer hypertension COPD vascular dementia CHF went to the bathroom and has large amount of blood in his toilet so the daughter and noticed it and she brought him to the emergency room patient denies any syncopal episode chest pain nausea vomiting or diarrhea. Timing/Duration: today Severity: moderate Associated Symptoms: denies symptoms - Review of Systems Constitutional: No Fever, No Chills Eyes: No Symptoms Ears, Nose, & Throat: No Symptoms Respiratory: No Cough, No Short Of Breath Cardiac: No Chest Pain, No Edema, No Syncope Abdominal/Gastrointestinal: Hematochezia, No Abdominal Pain, No Nausea, No Vomiting, No Diarrhea Genitourinary Symptoms: No Dysuria Musculoskeletal: No Back Pain, No Neck Pain Skin: No Rash Neurological: No Dizziness, No Focal Weakness, No Sensory Changes Psychological: No Symptoms Endocrine: No Symptoms Hematologic/Lymphatic: No Symptoms Immunological/Allergic: No Symptoms Medications & Allergies Home Medications: Home Medication List Allopurinol 100 mg [Zyloprim 100 mg] 100 mg PO DAILY 08/11/19 [History Confirmed 10/21/21] Glimepiride 1 mg PO DAILY 08/11/19 [History Confirmed 10/21/21] Sucralfate 1 gm [Carafate 1 GM] 1 gm PO QID 08/11/19 [History Confirmed 10/21/21] Tamsulosin HCl 0.4 mg [Flomax 0.4 MG] 0.4 mg PO QHS 08/11/19 [History Confirmed 10/21/21] Gabapentin 100 mg PO TID 02/28/20 [History Confirmed 10/21/21] Magnesium Oxide 400 mg [Mag-Ox 400] 400 mg PO DAILY 04/08/20 [History Confirmed 10/21/21] Pantoprazole Sodium [Protonix] 40 mg PO DAILY 04/08/20 [History Confirmed 10/21/21] Losartan Potassium [Cozaar] 50 mg PO DAILY 05/27/20 [History Confirmed 10/21/21] Metoprolol Tartrate 100 mg PO BID 02/13/21 [History Confirmed 10/21/21] Levothyroxine Sodium 50 Mcg [Synthroid 50 Mcg] 50 mcg PO DAILY 03/26/21 [History Confirmed 10/21/21] Furosemide 20 mg [Lasix 20 mg] 20 mg PO QAM #30 tablet 05/08/21 [Rx Confirmed 10/21/21] Cephalexin Mh 500 mg [Keflex 500 mg] 500 mg PO Q6H 10 Days #40 cap 10/17/21 [Rx Confirmed 10/21/21] clonazePAM [Clonazepam] 0.5 mg PO BID 10/21/21 [History Confirmed 10/21/21] Allergies/Adverse Reactions: Allergies Allergy/AdvReac Type Severity Reaction Status Date / Time aspirin AdvReac Verified 10/21/21 20:09 - Past Medical History Past Medical History: Yes Neurological History: TIA ENT History: Cataracts Cardiac History: Congestive Heart Failure, Coronary Artery Disease, High Cholesterol, Hypertension, Myocardial Infarction ([place]) Respiratory History: CHF, COPD, Pneumonia Endocrine Medical History: Diabetes Type II, Hypothyroidism Musculoskelatal History: Arthritis GI Medical History: GERD, GI Bleed, Hemorrhoids, Hernia History: No Pertinent History Pyscho-Social History: Anxiety Male Reproductive Disorders: Prostate Cancer, Prostate Problems Comment: Gout, 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, HX Prostate CX, [place] - Past Surgical History Past Surgical History: Yes Neuro Surgical History: No Pertinent History Cardiac History: No Pertinent History Respiratory Surgery: No Pertinent History GI Surgical History: Hemorrhoidectomy Genitourinary Surgical Hx: No Pertinent History Musculskeletal Surgical Hx: Orthopedic Surgery Male Surgical History: No Pertinent History Other Surgical History: LT ARM - Social History Smoking Status: Former smoker How long have you smoked: 25 years Exposure to second hand smoke: Yes (DAUGHTER) Alcohol: None Drug Use: none Significant Family History: no pertinent family hx - Physical Exam Vital Signs: Vital Signs - 24 hr Temp Pulse Resp BP Pulse Ox 10/21/21 21:05 60 181/79 95 10/21/21 20:38 99 10/21/21 20:09 97.9 F 65 18 194/102 99 General Appearance: no apparent distress, alert Neurologic Exam: alert, oriented x 3, cooperative, normal mood/affect, nml cerebellar function, nml station & gait, sensation nml, No motor deficits Eye Exam: PERRL/EOMI, eyes nml inspection Ears, Nose, Throat Exam: normal ENT inspection, TMs normal, pharynx normal, moist mucous membranes Neck Exam: normal inspection, non-tender, supple, full range of motion Respiratory Exam: diminished breath sounds, No respiratory distress Cardiovascular Exam: regular rate/rhythm, normal heart sounds, normal peripheral pulses Gastrointestinal/Abdomen Exam: soft, normal bowel sounds, No tenderness, No mass Back Exam: normal inspection, normal range of motion, No CVA tenderness, No vertebral tenderness Extremity Exam: normal inspection, normal range of motion, pelvis stable Skin Exam: normal color, warm, dry, No rash Lymphatic Exam: No adenopathy Results - Labs Lab/Micro Results: Lab Results-Last 24 Hours 10/21/21 10/21/21 10/21/21 Range/Units 20:21 20:21 20:50 WBC 4.2 (4.0-10.5) K/mm3 RBC 4.27 (4.1-5.6) M/mm3 Hgb 10.4 L (12.5-18.0) gm/dl Hct 34.1 L (42-50) % MCV 79.9 (78-100) fl MCH 24.4 L (26-32) pg MCHC 30.5 L (32-36) g/dl RDW 18.0 H (11.5-14.0) % Plt Count 111 L (150-450) K/mm3 MPV 10.5 (7.5-11.0) fl Segmented Neutrophils 41 (36.-66.) % Lymphocytes (Manual) 50 H (24-44) % Monocytes (Manual) 5 (0.0-12.0) % Eosinophils (Manual) 3 (0.00-3.0) % Basophils (Manual) 1 (0.0-1.0) % Platelet Estimate NORMAL (NORMAL) RBC Morphology ABNORMAL Microcytosis 1+ Sodium 140 (137-145) mmol/L Potassium 3.5 (3.5-5.1) mmol/L Chloride 106 (98-107) mmol/L Carbon Dioxide 25 (22-30) mmol/L Anion Gap 12.4 (5-15) MEQ/L BUN 12 (9-20) mg/dL Creatinine 1.07 (0.66-1.25) mg/dL Estimated GFR > 60.0 ML/MIN Glucose 110 H (74-106) mg/dL Calcium 8.8 (8.4-10.2) mg/dL Total Bilirubin 0.70 (0.2-1.3) mg/dL AST 21 (17-59) U/L ALT 13 (0-50) U/L Alkaline Phosphatase 119 (38-126) U/L Serum Total Protein 6.7 (6.3-8.2) g/dL Albumin 3.9 (3.5-5.0) g/dL Influenza Type A Ag NEGATIVE (NEGATIVE) Influenza Type B Ag NEGATIVE (NEGATIVE) RSV (PCR) NEGATIVE (Negative) SARS-CoV-2 (PCR) NEGATIVE (NEGATIVE) Assessment/Plan (1) GI (gastrointestinal bleed) Current Visit: Yes Status: Acute Qualifiers: GI bleed type/associated pathology: unspecified gastrointestinal hemorrhage type Qualified Code(s): K92.2 - Gastrointestinal hemorrhage, unspecified Assessment & Plan: Chief Complaint Diagnosis GI Bleed Allergies Allergy/AdvReac Type Severity Reaction Status Date / Time aspirin AdvReac Verified 10/21/21 20:09 Vital Signs (Last 24 hours) Temp Pulse Resp BP Pulse Ox 10/21/21 21:05 60 181/79 95 10/21/21 20:38 99 10/21/21 20:09 97.9 F 65 18 194/102 99 Home Medications Medication Instructions Recorded Confirmed Last Taken Type clonazePAM [Clonazepam] 0.5 mg PO BID 10/21/21 10/21/21 10/21/21 History Current Medications Generic Name Dose Route Start Last Admin Trade Name Freq PRN Reason Stop Dose Admin Famotidine 20 mg 10/21/21 22:00 Famotidine 20 Mg/1 Vial IV 11/20/21 21:59 Q12HT DRAKE Sodium Chloride 1,000 mls @ 100 mls/hr 10/21/21 20:45 10/21/21 21:28 Sodium Chloride 0.9% 1000 Ml IV 11/20/21 20:44 100 mls/hr .Q10H DRAKE Administration Pantoprazole Sodium 40 mg 10/22/21 10:00 Pantoprazole 40 Mg Vial IV 11/21/21 09:59 Q24H10 DRAKE Discontinued Medications Generic Name Dose Route Start Last Admin Trade Name Freq PRN Reason Stop Dose Admin Sodium Chloride 1,000 mls @ 999 mls/hr 10/21/21 20:21 10/21/21 22:00 Sodium Chloride 0.9% 1000 Ml IV 10/21/21 21:21 Infused .Q1H1M STA Infusion Sodium Chloride Confirm 10/21/21 20:36 Sodium Chloride 0.9% 1000 Ml Administered 10/21/21 20:37 Dose 1,000 mls @ ud .ROUTE .STK-MED ONE Intake & Output (Last 24 hours) 10/19/21 10/20/21 10/21/21 10/22/21 11:59 11:59 11:59 11:59 Weight 85.1 kg Laboratory Results (Last 24 hours) 10/21/21 10/21/21 10/21/21 20:50 20:21 20:21 WBC 4.2 RBC 4.27 Hgb 10.4 L Hct 34.1 L MCV 79.9 MCH 24.4 L MCHC 30.5 L RDW 18.0 H Plt Count 111 L MPV 10.5 Segmented Neutrophils 41 Lymphocytes (Manual) 50 H Monocytes (Manual) 5 Eosinophils (Manual) 3 Basophils (Manual) 1 Platelet Estimate NORMAL RBC Morphology ABNORMAL Microcytosis 1+ Sodium 140 Potassium 3.5 Chloride 106 Carbon Dioxide 25 Anion Gap 12.4 BUN 12 Creatinine 1.07 Estimated GFR > 60.0 Glucose 110 H Calcium 8.8 Total Bilirubin 0.70 AST 21 ALT 13 Alkaline Phosphatase 119 Serum Total Protein 6.7 Albumin 3.9 Influenza Type A Ag NEGATIVE Influenza Type B Ag NEGATIVE RSV (PCR) NEGATIVE SARS-CoV-2 (PCR) NEGATIVE Orders (Last 24 hours) Category Date Time Status Up Ad Sarah ROUTINE Activity 10/21/21 20:39 Active Physician Compensation Analyst STAT Care 10/21/21 20:21 Active Code Status Order ROUTINE Care 10/21/21 20:39 Active Fall Protocol ROUTINE Care 10/21/21 20:39 Active IV Care Q6H Care 10/21/21 20:39 Active IV Insertion STAT Care 10/21/21 20:21 Active IV Insertion-2nd Peripheral STAT Care 10/21/21 20:[address] in Observation ROUTINE Care 10/21/21 20:39 Active NPO Diet 10/21/21 20:39 Active CBC W DIFF AM.LAB Lab 10/22/21 04:00 Ordered CBC W DIFF Stat Lab 10/21/21 20:21 Completed CMP AM.LAB Lab 10/22/21 04:00 Ordered CMP Stat Lab 10/21/21 20:21 Completed FECAL OCCULT BLOOD - SCREENING Stat Lab 10/21/21 20:21 Ordered Manual Differential NC Stat Lab 10/21/21 20:21 Completed Famotidine 20 mg Vial [Pepcid 20 MG VIAL] Med 10/21/21 22:00 Ordered 20 mg IV Q12HT NaCl 0.9% 1000 ml [Sodium Chloride 0.9% 1000 ML] 1,000 Med 10/21/21 20:36 Discontinued ml .ROUTE UD NaCl 0.9% 1000 ml [Sodium Chloride 0.9% 1000 ML] 1,000 Med 10/21/21 20:45 Ordered ml IV 100 mls/hr NaCl 0.9% 1000 ml [Sodium Chloride 0.9% 1000 ML] 1,000 Med 10/21/21 20:21 Discontinued ml IV 999 mls/hr Pantoprazole 40 mg [Protonix 40 mg IV] Med 10/22/21 10:00 Ordered 40 mg IV Q24H10 Code(s): K92.2 - GASTROINTESTINAL HEMORRHAGE, UNSPECIFIED
[2021-10-21] MEDS: Pepcid 20 MG VIAL IV SCH (23:12)
[2021-10-22 06:24] LABS: Absolute Neutrophil Ct (ANC) 1.37 (1.4-6.9); Eosinophil % 3.8 % (0.00-5.0); Eosinophil (Absolute #) 0.14 (0-0.5); Hematocrit 29.3 % (42-50); Hemoglobin 8.9 gm/dl (12.5-18.0); Lymphocyte (Absolute #) 1.33 (1.0-4.6); Lymphocytes % 35.8 % (24.0-44.0); Mean Cell Volume 79.2 fl (78-100); Mean Corpuscular Hemoglobin 24.1 pg (26-32); Mean Corpuscular Hgb Concent. 30.4 g/dl (32-36); Mean Platelet Volume 10.4 fl (7.5-11.0); Monocyte (Absolute #) 0.77 (0.0-1.3); Monocytes % 20.8 % (0.0-12.0); Neutrophil % 36.9 % (36.0-66.0); Platelet Count 94 K/mm3 (150-450); Red Cell Distribution Width 17.8 % (11.5-14.0); White Blood Count 3.7 K/mm3 (4.0-10.5)
[2021-10-22 06:29] LABS: ALBUMIN 2.9 g/dL (3.5-5.0); ALKALINE PHOSPHATASE 98 U/L (38-126); BLOOD UREA NITROGEN 9 mg/dL (9-20); CHLORIDE 115 mmol/L (98-107); Calcium 7.2 mg/dL (8.4-10.2); Carbon Dioxide 21 mmol/L (22-30); Creatinine 1 0.88 mg/dL (0.66-1.25); EST GLOMERULAR FILTRATION RATE > 60.0 ML/MIN; Glucose 90 mg/dL (74-106); SGOT/AST 17 U/L (17-59); SGPT/ALT 10 U/L (0-50); SODIUM 142 mmol/L (137-145); Total Protein 5.4 g/dL (6.3-8.2)
[2021-10-22 06:39] LABS: ANION GAP 8.9 MEQ/L (5-15); Potassium 2.9 mmol/L (3.5-5.1)
[2021-10-22] MEDS ORDERED: Sodium Chloride 0.9% 1000 ML 1,000 ML ONE (07:05)
[2021-10-22] MEDS: Sodium Chloride 0.9% 1000 ML 1,000 ML IV SCH ×2 (07:08→15:42)
[2021-10-22] MEDS: POTASSIUM CHLORIDE 20 mEq IN WATER 100ML 20 MEQ/100 ML BAG IV SCH ×2 (07:53→09:25)
--- NOTE | 2021-10-22 08:31 | PCM.NOTE ---
Date and Time: 10/22/21826 Subjective Assessment: doing better. no bloody stool - Review of Systems Constitutional: No Fever, No Chills Eyes: No Symptoms Ears, Nose, & Throat: No Symptoms Respiratory: No Cough, No Short Of Breath Cardiac: No Chest Pain, No Edema, No Syncope Abdominal/Gastrointestinal: No Abdominal Pain, No Nausea, No Vomiting, No Diarrhea Genitourinary Symptoms: No Dysuria Musculoskeletal: No Back Pain, No Neck Pain Skin: No Rash Neurological: No Dizziness, No Focal Weakness, No Sensory Changes Psychological: No Symptoms Endocrine: No Symptoms Hematologic/Lymphatic: No Symptoms Immunological/Allergic: No Symptoms Objective Exam General Appearance: no apparent distress, alert Neurologic Exam: alert, oriented x 3, cooperative, normal mood/affect, nml cerebellar function, sensation nml, No motor deficits Skin Exam: normal color, warm, dry Wound Assessment: Skin/Wound Assessment Wound/Incision Assessment Start: 10/21/21 22:50 Text: Status: Active Freq: Q6H Protocol: Document 10/22/21 04:50 AB (Rec: 10/22/21 05:01 AB [id number]) Wound/Incision Assessment Right Lower Other Wound Assessment Shift Assessment Wound Type Scratch Drainage Amount None General Appearance Open to air Comment Scattered scrates to left lower leg Medial Back Wound Assessment Shift Assessment Wound Type Dry scaly skin Wound Stage Non Pressure Wound Drainage Amount None Comment Dry scaly area on back Eye Exam: PERRL, EOMI, eyes nml inspection Ears, Nose, Throat Exam: normal ENT inspection, pharynx normal, moist mucous membranes Neck Exam: normal inspection, non-tender, supple, full range of motion Respiratory Exam: normal breath sounds, lungs clear, No respiratory distress Cardiovascular Exam: regular rate/rhythm, normal heart sounds Gastrointestinal/Abdomen Exam: soft, No tenderness, No mass Extremity Exam: normal inspection, normal range of motion Back Exam: normal inspection, normal range of motion, No CVA tenderness, No vertebral tenderness Male Genitalia Exam: deferred Rectal Exam: deferred OBJECTIVE DATA Vital Signs: Vital Signs - 24 hr Temp Pulse Resp BP BP Pulse Ox 10/22/21 07:32 98 F 60 18 207/92 93 L 10/22/21 03:39 97.8 F 60 17 196/87 95 10/22/21 00:00 18 10/21/21 22:20 97.5 F 57 L 18 196/86 98 10/21/21 21:05 60 181/79 95 10/21/21 20:38 99 10/21/21 20:09 97.9 F 65 18 194/102 99 Pain Assessment - Last Documented Pain Intensity 1 Intake and Output: Intake & Output 10/19/21 10/20/21 10/21/21 10/22/21 11:59 11:59 11:59 11:59 Intake Total 538 Output Total 1850 Balance -1312 Weight 86 kg Lab Results: Lab Results-Last 24 Hours 10/21/21 10/21/21 10/21/21 Range/Units 20:21 20:21 20:50 WBC 4.2 (4.0-10.5) K/mm3 RBC 4.27 (4.1-5.6) M/mm3 Hgb 10.4 L (12.5-18.0) gm/dl Hct 34.1 L (42-50) % MCV 79.9 (78-100) fl MCH 24.4 L (26-32) pg MCHC 30.5 L (32-36) g/dl RDW 18.0 H (11.5-14.0) % Plt Count 111 L (150-450) K/mm3 MPV 10.5 (7.5-11.0) fl Gran % (36.0-66.0) % Eos # (Auto) (0-0.5) Absolute Lymphs (auto) (1.0-4.6) Absolute Monos (auto) (0.0-1.3) Lymphocytes % (24.0-44.0) % Monocytes % (0.0-12.0) % Eosinophils % (0.00-5.0) % Basophils % (0.0-0.4) % Absolute Granulocytes (1.4-6.9) Segmented Neutrophils 41 (36.-66.) % Lymphocytes (Manual) 50 H (24-44) % Monocytes (Manual) 5 (0.0-12.0) % Eosinophils (Manual) 3 (0.00-3.0) % Basophils (Manual) 1 (0.0-1.0) % Basophils # (0-0.4) Platelet Estimate NORMAL (NORMAL) RBC Morphology ABNORMAL Microcytosis 1+ Sodium 140 (137-145) mmol/L Potassium 3.5 (3.5-5.1) mmol/L Chloride 106 (98-107) mmol/L Carbon Dioxide 25 (22-30) mmol/L Anion Gap 12.4 (5-15) MEQ/L BUN 12 (9-20) mg/dL Creatinine 1.07 (0.66-1.25) mg/dL Estimated GFR > 60.0 ML/MIN Glucose 110 H (74-106) mg/dL Calcium 8.8 (8.4-10.2) mg/dL Total Bilirubin 0.70 (0.2-1.3) mg/dL AST 21 (17-59) U/L ALT 13 (0-50) U/L Alkaline Phosphatase 119 (38-126) U/L Serum Total Protein 6.7 (6.3-8.2) g/dL Albumin 3.9 (3.5-5.0) g/dL Influenza Type A Ag NEGATIVE (NEGATIVE) Influenza Type B Ag NEGATIVE (NEGATIVE) RSV (PCR) NEGATIVE (Negative) SARS-CoV-2 (PCR) NEGATIVE (NEGATIVE) 10/22/21 10/22/21 Range/Units 05:12 05:12 WBC 3.7 L (4.0-10.5) K/mm3 RBC 3.70 L (4.1-5.6) M/mm3 Hgb 8.9 L (12.5-18.0) gm/dl Hct 29.3 L (42-50) % MCV 79.2 (78-100) fl MCH 24.1 L (26-32) pg MCHC 30.4 L (32-36) g/dl RDW 17.8 H (11.5-14.0) % Plt Count 94 L (150-450) K/mm3 MPV 10.4 (7.5-11.0) fl Gran % 36.9 (36.0-66.0) % Eos # (Auto) 0.14 (0-0.5) Absolute Lymphs (auto) 1.33 (1.0-4.6) Absolute Monos (auto) 0.77 (0.0-1.3) Lymphocytes % 35.8 (24.0-44.0) % Monocytes % 20.8 H (0.0-12.0) % Eosinophils % 3.8 (0.00-5.0) % Basophils % 2.7 (0.0-0.4) % Absolute Granulocytes 1.37 L (1.4-6.9) Segmented Neutrophils (36.-66.) % Lymphocytes (Manual) (24-44) % Monocytes (Manual) (0.0-12.0) % Eosinophils (Manual) (0.00-3.0) % Basophils (Manual) (0.0-1.0) % Basophils # 0.10 (0-0.4) Platelet Estimate (NORMAL) RBC Morphology Microcytosis Sodium 142 (137-145) mmol/L Potassium 2.9 L* (3.5-5.1) mmol/L Chloride 115 H (98-107) mmol/L Carbon Dioxide 21 L (22-30) mmol/L Anion Gap 8.9 (5-15) MEQ/L BUN 9 (9-20) mg/dL Creatinine 0.88 (0.66-1.25) mg/dL Estimated GFR > 60.0 ML/MIN Glucose 90 (74-106) mg/dL Calcium 7.2 L D (8.4-10.2) mg/dL Total Bilirubin 0.60 (0.2-1.3) mg/dL AST 17 (17-59) U/L ALT 10 (0-50) U/L Alkaline Phosphatase 98 (38-126) U/L Serum Total Protein 5.4 L (6.3-8.2) g/dL Albumin 2.9 L (3.5-5.0) g/dL Influenza Type A Ag (NEGATIVE) Influenza Type B Ag (NEGATIVE) RSV (PCR) (Negative) SARS-CoV-2 (PCR) (NEGATIVE) Assessment/Plan (1) Hypokalemia due to excessive gastrointestinal loss of potassium Current Visit: Yes Status: Acute Code(s): E87.6 - HYPOKALEMIA (2) GI (gastrointestinal bleed) Current Visit: Yes Status: Acute Qualifiers: GI bleed type/associated pathology: unspecified gastrointestinal hemorrhage type Qualified Code(s): K92.2 - Gastrointestinal hemorrhage, unspecified Assessment & Plan: will follow H/H surgery consult Code(s): K92.2 - GASTROINTESTINAL HEMORRHAGE, UNSPECIFIED (3) Anemia Current Visit: No Status: Acute Qualifiers: Iron deficiency anemia type: chronic blood loss Code(s): D64.9 - ANEMIA, UNSPECIFIED (4) Atrial fibrillation Current Visit: Yes Status: Chronic Qualifiers: Atrial fibrillation type: unspecified chronic Qualified Code(s): I48.20 - Chronic atrial fibrillation, unspecified; I48.2 - Chronic atrial fibrillation Code(s): I48.91 - UNSPECIFIED ATRIAL FIBRILLATION (5) CHF (congestive heart failure) Current Visit: Yes Status: Chronic Qualifiers: Heart failure type: unspecified Heart failure chronicity: acute on chronic Qualified Code(s): I50.9 - Heart failure, unspecified Code(s): I50.9 - HEART FAILURE, UNSPECIFIED
[2021-10-22] MEDS: Neurontin 100 MG PO SCH ×3 (09:26→22:33)
[2021-10-22] MEDS: ZYLOPRIM 100 MG PO SCH (09:26)
[2021-10-22] MEDS: Lopressor 50 MG PO SCH ×2 (09:26→22:34)
[2021-10-22] MEDS: clonazePAM PO SCH ×2 (09:26→22:34)
[2021-10-22] MEDS: Cozaar 50 MG PO SCH (09:26)
[2021-10-22] MEDS: PROTONIX 40 MG IV IV SCH (09:26)
[2021-10-22] MEDS: Pepcid 20 MG VIAL IV SCH ×2 (09:26→22:35)
[2021-10-22] MEDS: SYNTHROID 50 MCG PO SCH (09:45)
[2021-10-22] MEDS ORDERED: NON-FORMULARY ITEM (Losartan Potassium [Cozaar] 25 MG Tablet) PO SCH (10:00)
[2021-10-22] MEDS ORDERED: NON-FORMULARY ITEM (Metoprolol Tartrate [Metoprolol Tartrate] 100 MG Tablet) PO SCH (10:00)
[2021-10-22] MEDS ORDERED: Golytely Solution 4000 ML PO ONE (14:00)
[2021-10-22 14:16] LABS: Hematocrit 32.2 % (42-50); Hemoglobin 9.8 gm/dl (12.5-18.0)
[2021-10-22 16:03] LABS: Appearance CLEAR (CLEAR); Bilirubin NEGATIVE (NEGATIVE); Dipstick done @ ? MAIN LAB; Glucose NEGATIVE (NEGATIVE); Ketones NEGATIVE (NEGATIVE); Nitrite NEGATIVE (NEGATIVE); Protein,Urine Dip NEGATIVE (Negative); RBC TRACE NON-HEM Ery/ul (0-5); Urobilinogen 0.2 mg/dL (0-1)
[2021-10-22 16:08] LABS: Slide Review 1 YES
[2021-10-22] MEDS: Flomax 0.4 MG PO SCH (22:34)
[2021-10-23] MEDS: Sodium Chloride 0.9% 1000 ML 1,000 ML IV SCH ×2 (01:29→20:48)
[2021-10-23] MEDS: clonazePAM PO SCH ×2 (10:36→20:58)
[2021-10-23] MEDS: SYNTHROID 50 MCG PO SCH (10:36)
[2021-10-23] MEDS: Cozaar 50 MG PO SCH (10:36)
[2021-10-23] MEDS: Lopressor 50 MG PO SCH ×2 (10:37→19:25)
[2021-10-23] MEDS: ZYLOPRIM 100 MG PO SCH (10:37)
[2021-10-23] MEDS: Neurontin 100 MG PO SCH ×3 (10:37→20:59)
--- NOTE | 2021-10-23 12:34 | PCM.NOTE ---
Date and Time: 10/23/21 1233 Subjective Assessment: doing ok, awaiting colonoscopy, EGD - Review of Systems Constitutional: No Fever, No Chills Eyes: No Symptoms Ears, Nose, & Throat: No Symptoms Respiratory: No Cough, No Short Of Breath Cardiac: No Chest Pain, No Edema, No Syncope Abdominal/Gastrointestinal: No Abdominal Pain, No Nausea, No Vomiting, No Diarrhea Genitourinary Symptoms: No Dysuria Musculoskeletal: No Back Pain, No Neck Pain Skin: No Rash Neurological: No Dizziness, No Focal Weakness, No Sensory Changes Psychological: No Symptoms Endocrine: No Symptoms Hematologic/Lymphatic: No Symptoms Immunological/Allergic: No Symptoms Objective Exam General Appearance: no apparent distress, alert Neurologic Exam: alert, oriented x 3, cooperative, normal mood/affect, nml cerebellar function, sensation nml, No motor deficits Skin Exam: normal color, warm, dry Wound Assessment: Skin/Wound Assessment Wound/Incision Assessment Start: 10/21/21 22:50 Text: Status: Active Freq: Q6H Protocol: Document 10/23/21 10:00 [facility] (Rec: 10/23/21 11:07 [facility] [id number]) Wound/Incision Assessment Right Lower Other Wound Assessment Shift Assessment Wound Type Scratch Drainage Amount None General Appearance Open to air Comment small scratches on leg Medial Back Wound Assessment Shift Assessment Wound Type Dry scaly skin Wound Stage Non Pressure Wound Drainage Amount None Comment Scaly patches on back Wound Photo Photo Taken No Eye Exam: PERRL, EOMI, eyes nml inspection Ears, Nose, Throat Exam: normal ENT inspection, pharynx normal, moist mucous membranes Neck Exam: normal inspection, non-tender, supple, full range of motion Respiratory Exam: normal breath sounds, lungs clear, No respiratory distress Cardiovascular Exam: regular rate/rhythm, normal heart sounds Gastrointestinal/Abdomen Exam: soft, No tenderness, No mass Extremity Exam: normal inspection, normal range of motion Back Exam: normal inspection, normal range of motion, No CVA tenderness, No vertebral tenderness Male Genitalia Exam: deferred Rectal Exam: deferred OBJECTIVE DATA Vital Signs: Vital Signs - 24 hr Temp Pulse Resp BP Pulse Ox 10/23/21 12:00 97.7 F 66 16 167/73 96 10/23/21 07:44 97.7 F 61 12 171/82 96 10/23/21 03:57 97.5 F 66 15 167/88 96 10/22/21 23:47 18 10/22/21 19:52 97.5 F 58 L 14 190/84 98 10/22/21 16:00 97.3 F 58 L 18 199/83 96 Pain Assessment - Last Documented Pain Intensity 0 Intake and Output: Intake & Output 10/21/21 10/22/21 10/23/21 10/24/21 11:59 11:59 11:59 11:59 Intake Total 1018 6944 Output Total 1850 8920 Balance -832 7121 Weight 86 kg Lab Results: Lab Results-Last 24 Hours 10/21/21 10/21/21 10/22/21 Range/Units 16:02 16:02 05:12 Hgb (12.5-18.0) gm/dl Hct (42-50) % Potassium (3.5-5.1) mmol/L POC Glucometer (74 to 106) mg/dL Urinalys Dipstick Clnc MAIN LAB Urine Color YELLOW (YELLOW) Urine Appearance CLEAR (CLEAR) Urine pH 7.0 (5-6) Ur Specific [place] 1.020 (1.005-1.025) POC Urine Protein Conf NEGATIVE (Negative) Urine Ketones NEGATIVE (NEGATIVE) Urine Nitrite NEGATIVE (NEGATIVE) Urine Bilirubin NEGATIVE (NEGATIVE) Urine Urobilinogen 0.2 (0-1) mg/dL Urine Leukocytes NEGATIVE (NEGATIVE) Urine WBC (Auto) NONE (0-5) /HPF Urine RBC (Auto) NONE (0-2) /HPF U Epithel Cells (Auto) NONE (FEW) /HPF Urine Bacteria (Auto) NONE (NEGATIVE) /HPF Urine RBC TRACE NON-HEM (0-5) Srinivasan/ul Urine Glucose NEGATIVE (NEGATIVE) mg/dL Stool Occult Blood NEGATIVE (NEGATIVE) Slides for Path Review YES 10/22/21 10/22/21 10/23/21 Range/Units 14:02 14:02 11:05 Hgb 9.8 L (12.5-18.0) gm/dl Hct 32.2 L (42-50) % Potassium 3.8 D (3.5-5.1) mmol/L POC Glucometer 115 H (74 to 106) mg/dL Urinalys Dipstick Clnc Urine Color (YELLOW) Urine Appearance (CLEAR) Urine pH (5-6) Ur Specific [place] (1.005-1.025) POC Urine Protein Conf (Negative) Urine Ketones (NEGATIVE) Urine Nitrite (NEGATIVE) Urine Bilirubin (NEGATIVE) Urine Urobilinogen (0-1) mg/dL Urine Leukocytes (NEGATIVE) Urine WBC (Auto) (0-5) /HPF Urine RBC (Auto) (0-2) /HPF U Epithel Cells (Auto) (FEW) /HPF Urine Bacteria (Auto) (NEGATIVE) /HPF Urine RBC (0-5) Srinivasan/ul Urine Glucose (NEGATIVE) mg/dL Stool Occult Blood (NEGATIVE) Slides for Path Review 10/23/21 Range/Units 11:58 Hgb (12.5-18.0) gm/dl Hct (42-50) % Potassium (3.5-5.1) mmol/L POC Glucometer 123 H (74 to 106) mg/dL Urinalys Dipstick Clnc Urine Color (YELLOW) Urine Appearance (CLEAR) Urine pH (5-6) Ur Specific [place] (1.005-1.025) POC Urine Protein Conf (Negative) Urine Ketones (NEGATIVE) Urine Nitrite (NEGATIVE) Urine Bilirubin (NEGATIVE) Urine Urobilinogen (0-1) mg/dL Urine Leukocytes (NEGATIVE) Urine WBC (Auto) (0-5) /HPF Urine RBC (Auto) (0-2) /HPF U Epithel Cells (Auto) (FEW) /HPF Urine Bacteria (Auto) (NEGATIVE) /HPF Urine RBC (0-5) Srinivasan/ul Urine Glucose (NEGATIVE) mg/dL Stool Occult Blood (NEGATIVE) Slides for Path Review Multi-Disciplinary Progress Notes: Multi-Disciplinary Progress Notes 10/23/21 12:29 Case Management Note by Sol Roberto DR. ROUNDED- WOULD LIKE PATIENT TO GO TO REHAB. FAMILY AGREEABLE. WOULD LIKE ENVIVE FOR PLACEMENT. SENT REFERRAL AT THIS TIME. ALSO CALLED REFERRAL TO ADMISSION DIRECTOR OLIVER Initialized on 10/23/21 12:29 - END OF NOTE Assessment/Plan (1) Hypokalemia due to excessive gastrointestinal loss of potassium Current Visit: Yes Status: Acute Code(s): E87.6 - HYPOKALEMIA (2) GI (gastrointestinal bleed) Current Visit: Yes Status: Acute Qualifiers: GI bleed type/associated pathology: angiodysplasia of stomach and duodenum Qualified Code(s): K31.811 - Angiodysplasia of stomach and duodenum with bleeding Code(s): K92.2 - GASTROINTESTINAL HEMORRHAGE, UNSPECIFIED (3) Anemia Current Visit: No Status: Acute Qualifiers: Iron deficiency anemia type: chronic blood loss Code(s): D64.9 - ANEMIA, UNSPECIFIED (4) Atrial fibrillation Current Visit: Yes Status: Chronic Qualifiers: Atrial fibrillation type: unspecified chronic Qualified Code(s): I48.20 - Chronic atrial fibrillation, unspecified; I48.2 - Chronic atrial fibrillation Code(s): I48.91 - UNSPECIFIED ATRIAL FIBRILLATION (5) CHF (congestive heart failure) Current Visit: Yes Status: Chronic Qualifiers: Heart failure type: unspecified Heart failure chronicity: acute on chronic Qualified Code(s): I50.9 - Heart failure, unspecified Code(s): I50.9 - HEART FAILURE, UNSPECIFIED
[2021-10-23] MEDS ORDERED: Xylocaine-Mpf 2% 5 Ml Vial ONE (13:23)
[2021-10-23] MEDS ORDERED: DIPRIVAN 200 MG/20 ML IV ONE (13:23)
[2021-10-23] MEDS ORDERED: Ketamine HCl 50 MG/ML ONE (13:25)
[2021-10-23] MEDS: PROTONIX 40 MG IV IV SCH (14:39)
[2021-10-23] MEDS: Pepcid 20 MG VIAL IV SCH ×2 (14:39→20:49)
[2021-10-23] MEDS: Flomax 0.4 MG PO SCH (20:59)
[2021-10-23] MEDS ORDERED: Catapres 0.1 MG PO ONE (23:50)
--- NOTE | 2021-10-24 08:36 | CONS ---
CONSULT DATE: 10/23/2021 HISTORY: This patient was seen apparently for Dr. Pascual Angel who was called over the weekend for GI bleed. The patient's history is taken from the family Power Of Plating Inspector as he is a poor historian apparently. He has had multiple medical problems. He had prostate cancer with radiation therapy. He has hypertension, chronic obstructive pulmonary disease and dementia. He had a large amount of blood when he had a bowel movement a couple of days ago. She said he has not had any bloody stools since he has been here. He reportedly had a hemoglobin of 8.9 at one point. No chest pain or palpitation. No abdominal pain. PAST MEDICAL HISTORY: As mentioned above. Again, history is taken from the old chart as he is a poor historian. He has had transient ischemic attack, congestive heart failure, coronary artery disease, hyperlipidemia and hypertension. History of myocardial infarction in the past. History of pneumonia in the past. Hypothyroidism, diabetes mellitus type II. He has reflux, GI bleed in the past. He had prostate cancer in the past. Anxiety. PAST SURGICAL HISTORY: Cataracts in the past. Arm surgery. Knee surgery. Hemorrhoid procedure in the past. History of skin cancer on his face in the past. HOME MEDICATIONS: Gout medication. Allopurinol, glimepiride, sucralfate, tamsulosin, gabapentin, magnesium oxide, pantoprazole, losartan, metoprolol, levothyroxine, furosemide, cephalexin, Clonazepam. ALLERGIES: ASPIRIN. FAMILY HISTORY: Heart disease. SOCIAL HISTORY: Former smoker. REVIEW OF SYSTEMS: Fourteen systems reviewed. History of hematochezia although he has not had some since he has been in the hospital according to the family member/POA. No abdominal pain. Denies chest pain. Other systems negative or noncontributory as above and per preadmission questionnaire. He had not been on any blood thinners prior to this. LAB DATA AND TESTS: His platelets are on the low side and been 94,000 apparently yesterday. PHYSICAL EXAMINATION: GENERAL: Chronically ill. No acute distress. HEENT: Sclera nonicteric. NECK: No JVD. CHEST: Equal excursion, nonlabored breathing. CVS: Regular rate and rhythm. ABDOMEN: Soft, nondistended. EXTREMITIES: He pulled his IV's out. They are working on establishing peripheral IV. No cyanosis. NEURO: He is alert but history of dementia, poor historian, hard of hearing. PSYCH: Appropriate mood. RECTAL: Deferred timed to endoscopy exam. IMPRESSION: History of GI bleed, rectal bleeding unclear etiology. He has been admitted for EGD and colonoscopy to rule out upper or lower source per the request of Dr. Wolf and Dr. 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 I discussed with a family member/POA the general risk of bleeding or infection, risk of bowel injury or perforation possibly requiring open procedure, risk of missed or nondiagnosis or inability to diagnose the etiology of his rectal bleeding. General risk of anesthesia or sedation but not limited to. They understand if unable to find an etiology and had continued anemia, he may need further work up and/or bleeding scan and/or transfer to tertiary GI for small bowel enteroscopy. PLAN: Will proceed with EGD and colonoscopy once anesthesia gets IV working.
[2021-10-24] MEDS: Sodium Chloride 0.9% 1000 ML 1,000 ML IV SCH ×2 (09:15→09:23)
[2021-10-24] MEDS: SYNTHROID 50 MCG PO SCH (09:16)
[2021-10-24] MEDS: Cozaar 50 MG PO SCH (09:16)
[2021-10-24] MEDS: Lopressor 50 MG PO SCH (09:16)
[2021-10-24] MEDS: clonazePAM PO SCH (09:16)
[2021-10-24] MEDS: ZYLOPRIM 100 MG PO SCH (09:16)
[2021-10-24] MEDS: PROTONIX 40 MG IV IV SCH ×2 (09:16→09:23)
[2021-10-24] MEDS: Pepcid 20 MG VIAL IV SCH ×2 (09:16→09:23)
[2021-10-24] MEDS: Neurontin 100 MG PO SCH ×2 (09:17→14:32)
--- NOTE | 2021-10-24 09:26 | OP ---
SURGERY DATE/TIME: 10/23/2021 1328 PREOPERATIVE DIAGNOSIS: History of GI bleed of unclear etiology, need for upper and lower endoscopy. POSTOPERATIVE DIAGNOSES: 1) ASA Class III. 2) Minimal gastritis. 3) Short segment of questionable Foss's esophagus, path pending. 4) No active upper GI bleeding. 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 6) No active visible colon bleeding. 7) Small polyps cecum and ascending colon. 8) Patchy area of inflammation sigmoid colon versus prep irritation. PROCEDURES: 1) EGD with cold biopsy of antrum for Helicobacter pylori. 2) Cold biopsy distal esophagus to evaluate for Foss's esophagus. 3) Colonoscopy to cecum. 4) Hot biopsy of small early polyp versus hyperplasia in the cecum at the area of the appendiceal orifice. 5) Hot snare polypectomy proximal ascending colon polyp. 6) Cold biopsy patchy area of possible early inflammation versus prep irritation sigmoid colon. SURGEON: Dr. Jericho Alexandre. ANESTHESIA: MAC. ESTIMATED BLOOD LOSS: Minimal. INDICATIONS: As noted above. Risks and benefits explained in detail and not limited to and consent obtained. DESCRIPTION OF PROCEDURE AND FINDINGS: The patient was taken to the operating room. MAC anesthesia introduced. After official time out and no disagreement with planned procedure, bite block positioned. Video gastroscope easily passed down the esophagus to the third portion of duodenum. The third, second and first portion of the duodenum grossly unremarkable. No signs of any fresh or old blood. The stomach had some minimal early gastritis versus gastropathy. Cold biopsy taken to evaluate for Helicobacter pylori. Good hemostasis noted. On retroflex a very slight weakness, a very slight tiny hiatal hernia. The scope straightened. The gastroesophageal junction about 40 cm. She had some salmon-pink fingerlettes extending up the esophagus, question Foss's esophagus. There are no signs of any active bleeding or masses. Cold biopsy taken. Good hemostasis noted. The remainder of the esophagus grossly unremarkable. Attention was then turned to colonoscopy. Digital rectal exam did not reveal any rectal masses. Video colonoscope inserted and passed up through the tortuous sigmoid, descending, transverse, ascending colon around to the cecum eventually. Appendiceal orifice and valve were photo documented. There were no signs of any fresh or old blood in the colon. No signs of any active bleeding. There was a small question of early polyp on the edge of the appendiceal orifice and cecum. Whether this was just hyperplasia versus early polyp was removed with hot biopsy forceps with brief bursts of cautery. Good hemostasis noted. There was a pedunculated polyp in the proximal ascending colon removed with hot snare polypectomy with brief bursts of cautery. Good hemostasis noted. Otherwise, the scope was carefully withdrawn. Prep overall was fair. The scope is carefully withdrawn over the next nine minutes. No signs of any large polyps, masses or obstructing lesions. There was just some patchy area questionable inflammation versus prep irritation sigmoid colon. Cold biopsy taken to evaluate for microscopic colitis. Good hemostasis noted. Otherwise, the scope pulled in the rectum. There were some chronic changes; question of some proctitis likely related to his radiation treatments for his prostate cancer. No active current bleeding. Question whether this is the etiology of his bleeding recently. Again, no signs of any active bleeding. The patient tolerated the procedure well. There were no immediate complications. I will discuss the findings with the family.
--- NOTE | 2021-10-24 11:15 | PCM.NOTE ---
Date and Time: 10/24/21 1114 Subjective Assessment: doing ok - Review of Systems Constitutional: No Fever, No Chills Eyes: No Symptoms Ears, Nose, & Throat: No Symptoms Respiratory: No Cough, No Short Of Breath Cardiac: No Chest Pain, No Edema, No Syncope Abdominal/Gastrointestinal: No Abdominal Pain, No Nausea, No Vomiting, No Diarrhea Genitourinary Symptoms: No Dysuria Musculoskeletal: No Back Pain, No Neck Pain Skin: No Rash Neurological: No Dizziness, No Focal Weakness, No Sensory Changes Psychological: No Symptoms Endocrine: No Symptoms Hematologic/Lymphatic: No Symptoms Immunological/Allergic: No Symptoms Objective Exam General Appearance: no apparent distress, alert Neurologic Exam: alert, oriented x 3, cooperative, normal mood/affect, nml cerebellar function, sensation nml, No motor deficits Skin Exam: normal color, warm, dry Wound Assessment: Skin/Wound Assessment Wound/Incision Assessment Start: 10/21/21 22:50 Text: Status: Active Freq: Q6H Protocol: Document 10/24/21 10:00 RN (Rec: 10/24/21 10:48 RN [id number]) Wound/Incision Assessment Right Lower Other Wound Assessment Shift Assessment Wound Type Scratch Drainage Amount None General Appearance Open to air Comment small scratches on leg Medial Back Wound Assessment Shift Assessment Wound Type Dry scaly skin Wound Stage Non Pressure Wound Drainage Amount None Comment Scaley patches on back Wound Photo Photo Taken No Eye Exam: PERRL, EOMI, eyes nml inspection Ears, Nose, Throat Exam: normal ENT inspection, pharynx normal, moist mucous membranes Neck Exam: normal inspection, non-tender, supple, full range of motion Respiratory Exam: normal breath sounds, lungs clear, No respiratory distress Cardiovascular Exam: regular rate/rhythm, normal heart sounds Gastrointestinal/Abdomen Exam: soft, No tenderness, No mass Extremity Exam: normal inspection, normal range of motion Back Exam: normal inspection, normal range of motion, No CVA tenderness, No vertebral tenderness Male Genitalia Exam: deferred Rectal Exam: deferred OBJECTIVE DATA Vital Signs: Vital Signs - 24 hr Temp Pulse Resp BP Pulse Ox 10/24/21 07:00 97.7 F 60 14 197/88 93 L 10/24/21 03:00 97.5 F 60 16 150/68 93 L 10/23/21 23:00 97.7 F 64 16 208/92 97 10/23/21 19:06 97.3 F 74 16 185/75 96 10/23/21 18:22 75 195/88 10/23/21 16:00 97.3 F 59 L 17 97 10/23/21 13:54 97.7 F 66 16 167/73 96 10/23/21 12:00 97.7 F 66 16 167/73 96 Pain Assessment - Last Documented Pain Intensity 0 Intake and Output: Intake & Output 10/21/21 10/22/21 10/23/21 10/24/21 11:59 11:59 11:59 11:59 Intake Total 1018 6944 1891 Output Total 1850 2150 1100 Balance -832 4794 791 Weight 86 kg 86 kg Lab Results: Lab Results-Last 24 Hours 10/23/21 10/23/21 10/23/21 Range/Units 11:58 16:30 21:47 POC Glucometer 123 H 92 145 H (74 to 106) mg/dL 10/24/21 Range/Units 06:57 POC Glucometer 145 H (74 to 106) mg/dL Multi-Disciplinary Progress Notes: Multi-Disciplinary Progress Notes 10/24/21 11:07 Case Management Note by Sol Rboerto S/W [facility] FROM [facility]- STILL WAITING ON FINAL OKAY AT THIS TIME Initialized on 10/24/21 11:07 - END OF NOTE 10/23/21 12:29 Case Management Note by Sol Roberto DR.OHIT ROUNDED- WOULD LIKE PATIENT TO GO TO REHAB. FAMILY AGREEABLE. WOULD LIKE [facility] FOR PLACEMENT. SENT REFERRAL AT THIS TIME. 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 Assessment & Plan: Chief Complaint Diagnosis c/o bloody stool for 1 day Allergies Allergy/AdvReac Type Severity Reaction Status Date / Time aspirin AdvReac Verified 10/21/21 20:09 Vital Signs (Last 24 hours) Temp Pulse Resp BP Pulse Ox 10/24/21 07:00 97.7 F 60 14 197/88 93 L 10/24/21 03:00 97.5 F 60 16 150/68 93 L 10/23/21 23:00 97.7 F 64 16 208/92 97 10/23/21 19:06 97.3 F 74 16 185/75 96 10/23/21 18:22 75 195/88 10/23/21 16:00 97.3 F 59 L 17 97 10/23/21 13:54 97.7 F 66 16 167/73 96 10/23/21 12:00 97.7 F 66 16 167/73 96 Home Medications Medication Instructions Recorded Confirmed Last Taken Type clonazePAM [Clonazepam] 0.5 mg PO BID 10/21/21 10/21/21 10/21/21 History Current Medications Generic Name Dose Route Start Last Admin Trade Name Jeri PRN Reason Stop Dose Admin Allopurinol 100 mg 10/22/21 10:00 10/24/21 09:16 Allopurinol 100 Mg Tablet PO 11/21/21 09:59 100 mg DAILY DRAKE Administration Clonazepam 0.5 mg 10/22/21 10:00 10/24/21 09:16 Clonazepam 0.5 Mg Tablet PO 11/21/21 09:59 0.5 mg BID DRAKE Administration Famotidine 20 mg 10/21/21 22:00 10/24/21 09:23 Famotidine 20 Mg/1 Vial IV 11/20/21 21:59 Not Given Q12HT DRAKE Gabapentin 100 mg 10/22/21 10:00 10/24/21 09:17 Gabapentin 100 Mg Capsule PO 11/21/21 09:59 100 mg TID DRAKE Administration Sodium Chloride 1,000 mls @ 100 mls/hr 10/21/21 20:45 10/24/21 09:23 Sodium Chloride 0.9% 1000 Ml IV 11/20/21 20:44 Not Given .Q10H DRAKE Levothyroxine Sodium 50 mcg 10/22/21 10:00 10/24/21 09:16 Levothyroxine Sodium 50 Mcg Tablet PO 11/21/21 09:59 50 mcg DAILY DRAKE Administration Losartan Potassium 50 mg 10/22/21 10:00 10/24/21 09:16 Losartan Potassium 50 Mg Tablet PO 11/21/21 09:59 50 mg DAILY DRAKE Administration Metoprolol Tartrate 100 mg 10/22/21 10:00 10/24/21 09:16 Metoprolol Tartrate 50 Mg Tablet PO 11/21/21 09:59 100 mg BID DRAKE Administration Pantoprazole Sodium 40 mg 10/22/21 10:00 10/24/21 09:23 Pantoprazole 40 Mg Vial IV 11/21/21 09:59 Not Given Q24H10 DRAKE Tamsulosin HCl 0.4 mg 10/22/21 22:00 10/23/21 20:59 Tamsulosin Hcl 0.4 Mg Cap PO 11/21/21 21:59 0.4 mg QHS DRAKE Administration Discontinued Medications Generic Name Dose Route Start Last Admin Trade Name Freq PRN Reason Stop Dose Admin Clonidine 0.1 mg 10/23/21 23:50 10/23/21 23:55 Clonidine Hcl 0.1 Mg Tablet PO 10/23/21 23:51 0.1 mg STAT ONE Administration Sodium Chloride 1,000 mls @ 999 mls/hr 10/21/21 20:21 10/21/21 22:00 Sodium Chloride 0.9% 1000 Ml IV 10/21/21 21:21 Infused .Q1H1M STA Infusion Sodium Chloride Confirm 10/21/21 20:36 Sodium Chloride 0.9% 1000 Ml Administered 10/21/21 20:37 Dose 1,000 mls @ ud .ROUTE .STK-MED ONE Potassium Chloride 20 meq in 100 mls @ 50 mls/hr 10/22/21 07:00 10/22/21 09:25 Potassium Chloride 20 Meq In Water 100ml IV 10/22/21 10:59 50 mls/hr Q2H DRAKE Administration Sodium Chloride Confirm 10/22/21 07:05 Sodium Chloride 0.9% 1000 Ml Administered 10/22/21 07:06 Dose 1,000 mls @ ud .ROUTE .STK-MED ONE Ketamine HCl Confirm 10/23/21 13:25 Ketamine Hcl 50 Mg/Ml Administered 10/23/21 13:26 Dose 20 mg .ROUTE .STK-MED ONE Lidocaine HCl Confirm 10/23/21 13:23 Lidocaine - Mpf 2% 5 Ml Vial Administered 10/23/21 13:24 Dose 5 ml .ROUTE .STK-MED ONE Polyethylene Glycol/Electrolytes 4,000 ml 10/22/21 14:00 10/22/21 14:36 Sod Sulf/Sod/Nahco3/Kcl/Peg's 4000 Ml Bottle PO 10/22/21 14:01 4,000 ml ONCE@1400 ONE Administration Propofol Confirm 10/23/21 13:23 Propofol 10 Mg/Ml 20ml Vial Administered 10/23/21 13:24 Dose 200 mg IV .STK-MED ONE Intake & Output (Last 24 hours) 10/21/21 10/22/21 10/23/21 10/24/21 11:59 11:59 11:59 11:59 Intake Total 1018 6905 1891 Output Total 1850 2150 1100 Balance -832 4794 791 Weight 86 kg 86 kg Laboratory Results (Last 24 hours) 10/24/21 10/23/21 10/23/21 06:57 21:47 16:30 POC Glucometer 145 H 145 H 92 10/23/21 11:58 POC Glucometer 123 H Orders (Last 24 hours) Category Date Time Status POCT Glucose Check ACHS Care 10/23/21 11:07 Active House Regular Diet Diet 10/23/21 Dinner Active POCT GLUCOSE Stat Lab 10/23/21 11:05 Completed POCT GLUCOSE Stat Lab 10/23/21 11:58 Completed POCT GLUCOSE Stat Lab 10/23/21 16:30 Completed POCT GLUCOSE Stat Lab 10/23/21 21:47 Completed POCT GLUCOSE Stat Lab 10/24/21 06:57 Completed Surgical Pathology Routine Lab 10/23/21 13:45 Received Clonidine HCl 0.1 mg [Catapres 0.1 MG] Med 10/23/21 23:50 Discontinued 0.1 mg PO STAT ONE Ketamine HCl 50 mg/ml [Ketamine HCl 50 MG/ML] Med 10/23/21 13:25 Discontinued 20 mg .ROUTE .STK-MED ONE Lidocaine HCl 2% Mpf 5 ml [Xylocaine-Mpf 2% 5 Ml Med 10/23/21 13:23 Discontinued Vial] 5 ml .ROUTE .STK-MED ONE Propofol 200 mg/20 ml [Diprivan 200 mg/20 ml] Med 10/23/21 13:23 Discontinued 200 mg IV .STK-MED ONE Patient Care Notes (Last 24 hours) 10/24/21 11:07 Case Management Note by Sol Roberto S/W [facility] FROM [facility]- STILL WAITING ON FINAL OKAY AT THIS TIME Initialized on 10/24/21 11:07 - END OF NOTE 10/24/21 08:44 Nursing Note by Ning Roman Received call from Dr. Wolf about patient status and discharge plan. Awaiting notification from case management if patient was accepted. Initialized on 10/24/21 08:44 - END OF NOTE 10/24/21 00:39 SBAR Note by Elodia Gandhi SITUATION I am calling about ZEKE LIRA the patient's code status is Full Code The problem I am calling about is: PT BP AT THIS TIME OF ASSESSMENT RECOMMENDATION Physician notified at 2348 New Orders received: NEW ORDER RECEIVED, INPUT AND ADMINISTERED Vital Signs (Last 4 hours) Temp Pulse Resp BP Pulse Ox 10/23/21 23:00 97.7 F 64 16 97 Diagnois, Code Status Date of Arrival on Unit 10/21/21 Diagnosis c/o bloody stool for 1 day Resucitation Status Full Code Intake and Output 12 Hours 10/23/21 10/24/21 18:59 06:59 Intake Total 360 740 Output Total 1250 Balance -890 740 Weight 86 kg Intake: Intake, Oral Amount 360 740 Output: Output, Urine Amount 1250 Other: Number of Voids 2 Physical Assessment Anxiety Level None,at ease,Awake,Calm,Sleeping Mental Status Confused Patient Orientation Person Coma Scale Total 14 Breath Sounds [Anterior Clear,Diminished Bilateral Throughout] Breath Sounds [Anterior/ Diminished Posterior Bilateral] Cardiac Rhythm-[facility] Sinus Rhythm Change from Baseline: No Bowel Sounds [All Quadrants] Present Abdomen Description Soft,Non-Tender Date Y[place]y Cath Inserted 02/13/2021 Urine Appearance Not Assessed Urine Color Yellow,Not assessed at this time Skin Color Normal for Race Skin Temperature Warm Pain Scale (Last 12 Hours) Pain Intensity 0 Pain Intensity 0 PAST MEDICAL HISTORY Neurological History TIA ENT History Cataracts Endocrine Medical History No Pertinent History,Diabetes Type II, Hypothyroidism Respiratory History COPD,Pneumonia Cardiac History Coronary Artery Disease,High Cholesterol, Hypertension,Myocardial Infarction (CT GI Medical History GERD,GI Bleed,Hemorrhoids,Hernia History No Pertinent History Pyscho-Social History Anxiety Communicable Disease No Pertinent History Comment Gout, 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, HX Prostate CX, [place] Diabetic (Last 12 Hours) Time 22:01 POCT Glucose (LAST VALUE) 145 mg/dL (74 to 106) H POCT Glucose (LAST VALUE) 92 mg/dL (74 to 106) Diet Order (Last 12 Hours) 10/23/21 Dinner House Regular Diet Lab Results (Last 12 Hours) 10/23/21 10/23/21 Range/Units 21:47 16:30 POC Glucometer 145 H 92 (74 to 106) mg/dL Orders (Last 12 Hours) Category Date Time Status House Regular Diet Diet 10/23/21 Dinner Active Surgical Pathology Routine Lab 10/23/21 13:45 Received Clonidine HCl 0.1 mg [Catapres 0.1 MG] Med 10/23/21 23:50 Once 0.1 mg PO STAT ONE Nursing Notes (Last 12 hours) 10/23/21 19:04 Nursing Note by Horace Mendes Dr called back and stated to give pt his normal scheduled evening meds and to just watch the elevated B/P for now. Initialized on 10/23/21 19:04 - END OF NOTE 10/23/21 18:23 Nursing Note by Horace Mendes Dr called about pt's high B/P. Message left on his voicemail to return a call. Initialized on 10/23/21 18:23 - END OF NOTE Active Visit Medications Generic Name Dose Route Start Last Admin Trade Name Jeri PRN Reason Stop Dose Admin Allopurinol 100 mg 10/22/21 10:00 10/23/21 10:37 Allopurinol 100 Mg Tablet PO 11/21/21 09:59 Not Given DAILY DRAKE Clonazepam 0.5 mg 10/22/21 10:00 10/23/21 20:58 Clonazepam 0.5 Mg Tablet PO 11/21/21 09:59 0.5 mg BID DRAKE Administration Clonidine 0.1 mg 10/23/21 23:50 10/23/21 23:55 Clonidine Hcl 0.1 Mg Tablet PO 10/23/21 23:51 0.1 mg STAT ONE Administration Famotidine 20 mg 10/21/21 22:00 10/23/21 20:49 Famotidine 20 Mg/1 Vial IV 11/20/21 21:59 Not Given Q12HT DRAKE Gabapentin 100 mg 10/22/21 10:00 10/23/21 20:59 Gabapentin 100 Mg Capsule PO 11/21/21 09:59 100 mg TID DRAKE Administration Sodium Chloride 1,000 mls @ 100 mls/hr 10/21/21 20:45 10/23/21 20:48 Sodium Chloride 0.9% 1000 Ml IV 11/20/21 20:44 Not Given .Q10H DRAKE Levothyroxine Sodium 50 mcg 10/22/21 10:00 10/23/21 10:36 Levothyroxine Sodium 50 Mcg Tablet PO 11/21/21 09:59 50 mcg DAILY DRAKE Administration Losartan Potassium 50 mg 10/22/21 10:00 10/23/21 10:36 Losartan Potassium 50 Mg Tablet PO 11/21/21 09:59 50 mg DAILY DRAKE Administration Metoprolol Tartrate 100 mg 10/22/21 10:00 10/23/21 19:25 Metoprolol Tartrate 50 Mg Tablet PO 11/21/21 09:59 100 mg BID DRAKE Administration Pantoprazole Sodium 40 mg 10/22/21 10:00 10/23/21 14:39 Pantoprazole 40 Mg Vial IV 11/21/21 09:59 40 mg Q24H10 DRAKE Administration Tamsulosin HCl 0.4 mg 10/22/21 22:00 10/23/21 20:59 Tamsulosin Hcl 0.4 Mg Cap PO 11/21/21 21:59 0.4 mg QHS DRAKE Administration Home Medications Medication Instructions Recorded Confirmed Last Taken Type clonazePAM [Clonazepam] 0.5 mg PO BID 10/21/21 10/21/21 10/21/21 History Initialized on 10/24/21 00:39 - END OF NOTE 10/23/21 19:04 Nursing Note by Horace Mendes Dr called back and stated to give pt his normal scheduled evening meds and to just watch the elevated B/P for now. Initialized on 10/23/21 19:04 - END OF NOTE 10/23/21 18:23 Nursing Note by Horace Mendes Dr called about pt's high B/P. Message left on his voicemail to return a call. Initialized on 10/23/21 18:23 - END OF NOTE 10/23/21 17:42 EKG MANAGER Note by Aniya Dasilva reported blood pressure to the attending nurse. blood pressure was taken 3X's 15 minutes apart. Initialized on 10/23/21 17:42 - END OF NOTE 10/23/21 12:29 Case Management Note by Sol Roberto DR. ROUNDED- WOULD LIKE PATIENT TO GO TO REHAB. FAMILY AGREEABLE. WOULD LIKE [facility] FOR PLACEMENT. SENT REFERRAL AT THIS TIME. ALSO CALLED REFERRAL TO ADMISSION DIRECTOR OLIVER Initialized on 10/23/21 12:29 - END OF NOTE Code(s): K92.2 - GASTROINTESTINAL HEMORRHAGE, UNSPECIFIED (2) Hypokalemia due to excessive gastrointestinal loss of potassium Current Visit: Yes Status: Acute Code(s): E87.6 - HYPOKALEMIA (3) Anemia Current Visit: No Status: Acute Qualifiers: Iron deficiency anemia type: chronic blood loss Code(s): D64.9 - ANEMIA, UNSPECIFIED (4) Atrial fibrillation Current Visit: Yes Status: Chronic Qualifiers: Atrial fibrillation type: unspecified chronic Qualified Code(s): I48.20 - Chronic atrial fibrillation, unspecified; I48.2 - Chronic atrial fibrillation Code(s): I48.91 - UNSPECIFIED ATRIAL FIBRILLATION (5) CHF (congestive heart failure) Current Visit: Yes Status: Chronic Qualifiers: Heart failure type: unspecified Heart failure chronicity: acute on chronic Qualified Code(s): I50.9 - Heart failure, unspecified Code(s): I50.9 - HEART FAILURE, UNSPECIFIED
[2021-10-24 15:53] VITALS: BP 91/60; PULSE 70; O2SAT 96
--- NOTE | 2021-10-24 17:49 | PCM.DS ---
Discharge Summary Date of Admission: 10/21/21 21:56 Admitting Physician: CHANDANA DUNNE Consults: Consults on Case 10/22/21 07:03 Consult Surgery ROUTINE Primary Care Provider: CHANDANA DUNNE Allergies Allergies aspirin Adverse Reaction (Verified 10/21/21 20:09) bleeding Hospital Summary - Hospital Course Hospital Course: Chief Complaint Diagnosis c/o bloody stool for 1 day Allergies Allergy/AdvReac Type Severity Reaction Status Date / Time aspirin AdvReac Verified 10/21/21 20:09 Vital Signs (Last 24 hours) Temp Pulse Resp BP Pulse Ox 10/24/21 15:52 97.9 F 70 16 91/60 96 10/24/21 11:00 96.9 F 101 H 23 170/96 91 L 10/24/21 07:00 97.7 F 60 14 197/88 93 L 10/24/21 03:00 97.5 F 60 16 150/68 93 L 10/23/21 23:00 97.7 F 64 16 208/92 97 10/23/21 19:06 97.3 F 74 16 185/75 96 10/23/21 18:22 75 195/88 Home Medications Medication Instructions Recorded Confirmed Last Taken Type clonazePAM [Clonazepam] 0.5 mg PO BID 10/21/21 10/21/21 10/21/21 History Current Medications Generic Name Dose Route Start Last Admin Trade Name Jeri PRN Reason Stop Dose Admin Allopurinol 100 mg 10/22/21 10:00 10/24/21 09:16 Allopurinol 100 Mg Tablet PO 11/21/21 09:59 100 mg DAILY DRAKE Administration Clonazepam 0.5 mg 10/22/21 10:00 10/24/21 09:16 Clonazepam 0.5 Mg Tablet PO 11/21/21 09:59 0.5 mg BID DRAKE Administration Gabapentin 100 mg 10/22/21 10:00 10/24/21 14:32 Gabapentin 100 Mg Capsule PO 11/21/21 09:59 Not Given TID DRAKE Levothyroxine Sodium 50 mcg 10/22/21 10:00 10/24/21 09:16 Levothyroxine Sodium 50 Mcg Tablet PO 11/21/21 09:59 50 mcg DAILY DRAKE Administration Losartan Potassium 50 mg 10/22/21 10:00 10/24/21 09:16 Losartan Potassium 50 Mg Tablet PO 11/21/21 09:59 50 mg DAILY DRAKE Administration Metoprolol Tartrate 100 mg 10/22/21 10:00 10/24/21 09:16 Metoprolol Tartrate 50 Mg Tablet PO 11/21/21 09:59 100 mg BID DRAKE Administration Tamsulosin HCl 0.4 mg 10/22/21 22:00 10/23/21 20:59 Tamsulosin Hcl 0.4 Mg Cap PO 11/21/21 21:59 0.4 mg QHS DRAKE Administration Discontinued Medications Generic Name Dose Route Start Last Admin Trade Name Johnq PRN Reason Stop Dose Admin Clonidine 0.1 mg 10/23/21 23:50 10/23/21 23:55 Clonidine Hcl 0.1 Mg Tablet PO 10/23/21 23:51 0.1 mg STAT ONE Administration Famotidine 20 mg 10/21/21 22:00 10/24/21 09:23 Famotidine 20 Mg/1 Vial IV 11/20/21 21:59 Not Given Q12HT DRAKE Sodium Chloride 1,000 mls @ 999 mls/hr 10/21/21 20:21 10/21/21 22:00 Sodium Chloride 0.9% 1000 Ml IV 10/21/21 21:21 Infused .Q1H1M STA Infusion Sodium Chloride Confirm 10/21/21 20:36 Sodium Chloride 0.9% 1000 Ml Administered 10/21/21 20:37 Dose 1,000 mls @ ud .ROUTE .STK-MED ONE Sodium Chloride 1,000 mls @ 100 mls/hr 10/21/21 20:45 10/24/21 09:23 Sodium Chloride 0.9% 1000 Ml IV 11/20/21 20:44 Not Given .Q10H DRAKE Potassium Chloride 20 meq in 100 mls @ 50 mls/hr 10/22/21 07:00 10/22/21 09:25 Potassium Chloride 20 Meq In Water 100ml IV 10/22/21 10:59 50 mls/hr Q2H DRAKE Administration Sodium Chloride Confirm 10/22/21 07:05 Sodium Chloride 0.9% 1000 Ml Administered 10/22/21 07:06 Dose 1,000 mls @ ud .ROUTE .STK-MED ONE Ketamine HCl Confirm 10/23/21 13:25 Ketamine Hcl 50 Mg/Ml Administered 10/23/21 13:26 Dose 20 mg .ROUTE .STK-MED ONE Lidocaine HCl Confirm 10/23/21 13:23 Lidocaine - Mpf 2% 5 Ml Vial Administered 10/23/21 13:24 Dose 5 ml .ROUTE .STK-MED ONE Pantoprazole Sodium 40 mg 10/22/21 10:00 10/24/21 09:23 Pantoprazole 40 Mg Vial IV 11/21/21 09:59 Not Given Q24H10 DRAKE Polyethylene Glycol/Electrolytes 4,000 ml 10/22/21 14:00 10/22/21 14:36 Sod Sulf/Sod/Nahco3/Kcl/Peg's 4000 Ml Bottle PO 10/22/21 14:01 4,000 ml ONCE@1400 ONE Administration Propofol Confirm 10/23/21 13:23 Propofol 10 Mg/Ml 20ml Vial Administered 10/23/21 13:24 Dose 200 mg IV .STK-MED ONE Intake & Output (Last 24 hours) 10/22/21 10/23/21 10/24/21 10/25/21 11:59 11:59 11:59 11:59 Intake Total 1018 6944 1891 240 Output Total 1850 2150 1100 Balance -832 4794 791 240 Weight 86 kg 86 kg Laboratory Results (Last 24 hours) 10/24/21 10/24/21 10/24/21 16:24 11:52 06:57 POC Glucometer 196 H 216 H 145 H 10/23/21 21:47 POC Glucometer 145 H Orders (Last 24 hours) Category Date Time Status Discharge Routine Discharge 10/24/21 Ordered POCT GLUCOSE Stat Lab 10/23/21 21:47 Completed POCT GLUCOSE Stat Lab 10/24/21 06:57 Completed POCT GLUCOSE Stat Lab 10/24/21 11:52 Completed POCT GLUCOSE Stat Lab 10/24/21 16:24 Completed Clonidine HCl 0.1 mg [Catapres 0.1 MG] Med 10/23/21 23:50 Discontinued 0.1 mg PO STAT ONE Patient Care Notes (Last 24 hours) 10/24/21 11:59 Case Management Note by Sol Roberto S/W DAUGHTER PIPE- SHE REPORTS PATIENT HAS HAD SOME DISCREPANCIES IN IT IS LISTED 13 IN SOME PLACES AND /14 IN OTHERS. THEY ARE UNABLE TO FIND PATIENT'S CERTIFICATE. DAUGHTER DINAH HAS BEEN TRYING TO WORK TO GET IT STRAIGHTED OUT. INSURANCE CARD FAXED TO [employer]- NOTIFIED OF BIRTHDAY DISCREPANCY Initialized on 10/24/21 11:59 - END OF NOTE 10/24/21 11:07 Case Management Note by Sol Roberto S/W OLIVER FROM [employer]- STILL WAITING ON FINAL OKAY AT THIS TIME Initialized on 10/24/21 11:07 - END OF NOTE 10/24/21 08:44 Nursing Note by Ning Roman Received call from Dr. Dunne about patient status and discharge plan. Awaiting notification from case management if patient was accepted. Initialized on 10/24/21 08:44 - END OF NOTE 10/24/21 00:39 SBAR Note by Elodia Gandhi SITUATION I am calling about ZEKE LIRA the patient's code status is Full Code The problem I am calling about is: PT BP AT THIS TIME OF ASSESSMENT RECOMMENDATION Physician notified at 2348 New Orders received: NEW ORDER RECEIVED, INPUT AND A DMINISTERED Vital Signs (Last 4 hours) Temp Pulse Resp BP Pulse Ox 10/23/21 23:00 97.7 F 64 16 97 Diagnois, Code Status Date of Arrival on Unit 10/21/21 Diagnosis c/o bloody stool for 1 day Resucitation Status Full Code Intake and Output 12 Hours 10/23/21 10/24/21 18:59 06:59 Intake Total 360 740 Output Total 1250 Balance -890 740 Weight 86 kg Intake: Intake, Oral Amount 360 740 Output: Output, Urine Amount 1250 Other: Number of Voids 2 Physical Assessment Anxiety Level None,at ease,Awake,Calm,Sleeping Mental Status Confused Patient Orientation Person Coma Scale Total 14 Breath Sounds [Anterior Clear,Diminished Bilateral Throughout] Breath Sounds [Anterior/ Diminished Posterior Bilateral] Cardiac Rhythm-[facility] Sinus Rhythm Change from Baseline: No Bowel Sounds [All Quadrants] Present Abdomen Description Soft,Non-Tender Date [place] Cath Inserted 02/13/2021 Urine Appearance Not Assessed Urine Color Yellow,Not assessed at this time Skin Color Normal for Race Skin Temperature Warm Pain Scale (Last 12 Hours) Pain Intensity 0 Pain Intensity 0 PAST MEDICAL HISTORY Neurological History TIA ENT History Cataracts Endocrine Medical History No Pertinent History,Diabetes Type II, Hypothyroidism Respiratory History COPD,Pneumonia Cardiac History Coronary Artery Disease,High Cholesterol, Hypertension,Myocardial Infarction ([place] GI Medical History GERD,GI Bleed,Hemorrhoids,Hernia History No Pertinent History Pyscho-Social History Anxiety Communicable Disease No Pertinent History Comment Gout, 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, HX Prostate CX, [place] Diabetic (Last 12 Hours) Time 22:01 POCT Glucose (LAST VALUE) 145 mg/dL (74 to 106) H POCT Glucose (LAST VALUE) 92 mg/dL (74 to 106) Diet Order (Last 12 Hours) 10/23/21 Dinner House Regular Diet Lab Results (Last 12 Hours) 10/23/21 10/23/21 Range/Units 21:47 16:30 POC Glucometer 145 H 92 (74 to 106) mg/dL Orders (Last 12 Hours) Category Date Time Status House Regular Diet Diet 10/23/21 Dinner Active Surgical Pathology Routine Lab 10/23/21 13:45 Received Clonidine HCl 0.1 mg [Catapres 0.1 MG] Med 10/23/21 23:50 Once 0.1 mg PO STAT ONE Nursing Notes (Last 12 hours) 10/23/21 19:04 Nursing Note by Horace Mendes Dr called back and stated to give pt his normal scheduled evening meds and to just watch the elevated B/P for now. Initialized on 10/23/21 19:04 - END OF NOTE 10/23/21 18:23 Nursing Note by Horace Mendes Dr called about pt's high B/P. Message left on his voicemail to return a call. Initialized on 10/23/21 18:23 - END OF NOTE Active Visit Medications Generic Name Dose Route Start Last Admin Trade Name Jeri PRN Reason Stop Dose Admin Allopurinol 100 mg 10/22/21 10:00 10/23/21 10:37 Allopurinol 100 Mg Tablet PO 11/21/21 09:59 Not Given DAILY DRAKE Clonazepam 0.5 mg 10/22/21 10:00 10/23/21 20:58 Clonazepam 0.5 Mg Tablet PO 11/21/21 09:59 0.5 mg BID DRAEK Administration Clonidine 0.1 mg 10/23/21 23:50 10/23/21 23:55 Clonidine Hcl 0.1 Mg Tablet PO 10/23/21 23:51 0.1 mg STAT ONE Administration Famotidine 20 mg 10/21/21 22:00 10/23/21 20:49 Famotidine 20 Mg/1 Vial IV 11/20/21 21:59 Not Given Q12HT DRAKE Gabapentin 100 mg 10/22/21 10:00 10/23/21 20:59 Gabapentin 100 Mg Capsule PO 11/21/21 09:59 100 mg TID DRAKE Administration Sodium Chloride 1,000 mls @ 100 mls/hr 10/21/21 20:45 10/23/21 20:48 Sodium Chloride 0.9% 1000 Ml IV 11/20/21 20:44 Not Given .Q10H DRAKE Levothyroxine Sodium 50 mcg 10/22/21 10:00 10/23/21 10:36 Levothyroxine Sodium 50 Mcg Tablet PO 11/21/21 09:59 50 mcg DAILY DRAKE Administration Losartan Potassium 50 mg 10/22/21 10:00 10/23/21 10:36 Losartan Potassium 50 Mg Tablet PO 11/21/21 09:59 50 mg DAILY DRAKE Administration Metoprolol Tartrate 100 mg 10/22/21 10:00 10/23/21 19:25 Metoprolol Tartrate 50 Mg Tablet PO 11/21/21 09:59 100 mg BID DRAKE Administration Pantoprazole Sodium 40 mg 10/22/21 10:00 10/23/21 14:39 Pantoprazole 40 Mg Vial IV 11/21/21 09:59 40 mg Q24H10 DRAKE Administration Tamsulosin HCl 0.4 mg 10/22/21 22:00 10/23/21 20:59 Tamsulosin Hcl 0.4 Mg Cap PO 11/21/21 21:59 0.4 mg QHS DRAKE Administration Home Medications Medication Instructions Recorded Confirmed Last Taken Type clonazePAM [Clonazepam] 0.5 mg PO BID 10/21/21 10/21/21 10/21/21 History Initialized on 10/24/21 00:39 - END OF NOTE 10/23/21 19:04 Nursing Note by Horace Mendes Dr called back and stated to give pt his normal scheduled evening meds and to just watch the elevated B/P for now. Initialized on 10/23/21 19:04 - END OF NOTE 10/23/21 18:23 Nursing Note by Horace Mendes Dr called about pt's high B/P. Message left on his voicemail to return a call. Initialized on 10/23/21 18:23 - END OF NOTE - Vitals & Intake/Output Vital Signs: Vital Signs Temperature 97.9 F 10/24/21 15:52 Pulse Rate 70 10/24/21 15:52 Respiratory Rate 16 10/24/21 15:52 Blood Pressure 91/60 10/24/21 15:52 O2 Sat by Pulse Oximetry 96 10/24/21 15:52 Intake & Output: Intake & Output 10/22/21 10/23/21 10/24/21 10/25/21 11:59 11:59 11:59 11:59 Intake Total 1018 6953 1891 240 Output Total 1850 2150 1100 Balance -832 3411 791 240 Weight 86 kg 86 kg - Lab Result Diagrams: 10/22/21 14:02 10/22/21 14:02 Lab Results-Last 24 Hrs: Lab Results-Last 24 Hours 10/23/21 10/24/21 10/24/21 Range/Units 21:47 06:57 11:52 POC Glucometer 145 H 145 H 216 H (74 to 106) mg/dL 10/24/21 Range/Units 16:24 POC Glucometer 196 H (74 to 106) mg/dL Micro Results-Entire Visit: Accuchecks Date 10/24/21 Date 10/24/21 Date 10/23/21 Time 11:50 Time 06:55 Time 22:01 Discharge Exam General Appearance: no apparent distress, alert Neurologic Exam: alert, oriented x 3, cooperative, normal mood/affect, nml cerebellar function, sensation nml, No motor deficits Eye Exam: PERRL, EOMI, eyes nml inspection Ears, Nose, Throat Exam: normal ENT inspection, pharynx normal, moist mucous membranes Neck Exam: normal inspection, non-tender, supple, full range of motion Respiratory Exam: normal breath sounds, lungs clear, No respiratory distress Cardiovascular Exam: regular rate/rhythm, normal heart sounds Gastrointestinal/Abdomen Exam: soft, No tenderness, No mass Male Genitalia Exam: deferred Rectal Exam: deferred Back Exam: normal inspection, normal range of motion, No CVA tenderness, No vertebral tenderness Extremity Exam: normal inspection, normal range of motion Skin Exam: normal color, warm, dry Wound Assessment: Skin/Wound Assessment Wound/Incision Assessment Start: 10/21/21 22:50 Text: Status: Active Freq: Q6H Protocol: Document 10/24/21 16:00 WESLEY (Rec: 10/24/21 16:18 WESLEY [id number]) Wound/Incision Assessment Right Lower Other Wound Assessment Shift Assessment Wound Type Scratch Drainage Amount None General Appearance Open to air Comment small scratches on leg Medial Back Wound Assessment Shift Assessment Wound Type Dry scaly skin Wound Stage Non Pressure Wound Drainage Amount None Comment Scaley patches on back Wound Photo Photo Taken No Final Diagnosis/Problem List - Final Discharge Diagnosis/Problem (1) GI (gastrointestinal bleed) Current Visit: Yes Status: Resolved Code(s): K92.2 - GASTROINTESTINAL HEMORRHAGE, UNSPECIFIED (2) Hypokalemia due to excessive gastrointestinal loss of potassium Current Visit: Yes Status: Resolved Code(s): E87.6 - HYPOKALEMIA (3) Anemia Current Visit: No Status: Acute Code(s): D64.9 - ANEMIA, UNSPECIFIED (4) Atrial fibrillation Current Visit: Yes Status: Chronic Code(s): I48.91 - UNSPECIFIED ATRIAL F IBRILLATION (5) CHF (congestive heart failure) Current Visit: Yes Status: Chronic Priority: High Code(s): I50.9 - HEART FAILURE, UNSPECIFIED - Discharge Discharge Date: 10/24/21 Disposition: DC TO ANY "OTHER" [facility]ENT[facility] Condition: Stable Prescriptions: Continue Tamsulosin HCl 0.4 mg [Flomax 0.4 MG] 0.4 mg PO QHS Allopurinol 100 mg [Zyloprim 100 mg] 100 mg PO DAILY Sucralfate 1 gm [Carafate 1 GM] 1 gm PO QID Glimepiride 1 mg PO DAILY Gabapentin 100 mg PO TID Pantoprazole Sodium [Protonix] 40 mg PO DAILY Magnesium Oxide 400 mg [Mag-Ox 400] 400 mg PO DAILY Losartan Potassium [Cozaar] 50 mg PO DAILY Metoprolol Tartrate 100 mg PO BID Levothyroxine Sodium 50 Mcg [Synthroid 50 Mcg] 50 mcg PO DAILY Furosemide 20 mg [Lasix 20 mg] 20 mg PO QAM #30 tablet Cephalexin Mh 500 mg [Keflex 500 mg] 500 mg PO Q6H 10 Days #40 cap clonazePAM [Clonazepam] 0.5 mg PO BID Additional Instructions: ADMIT TO LONGTERM FACILITY: REGULAR DIET [facility] ACCU CHECKS PT/OT EVAL AND TREAT SEE ATTACHED MED LIST Follow up with: YONIS JORGE [COURTESY STAFF] - 10/30/21 10:00 am () CHANDANA DUNNE MD [Primary Care Provider] -
== END 2021-10-24 17:53 ==
LOC: ED 19:59 → MED SURG 21:56
PROVIDERS: ADMIT General Practice; ATTEND General Practice
DX: K92.2 Gastrointestinal hemorrhage, unspecified (principal); E87.6 Hypokalemia; D64.9 Anemia, unspecified; I11.0 Hypertensive heart disease with heart failure; I50.9 Heart failure, unspecified; I25.10 Atherosclerotic heart disease of native coronary artery without angina pectoris; J44.9 Chronic obstructive pulmonary disease, unspecified; E78.00 Pure hypercholesterolemia, unspecified; E11.9 Type 2 diabetes mellitus without complications; I48.91 Unspecified atrial fibrillation; E03.9 Hypothyroidism, unspecified; F03.90 Unspecified dementia, unspecified severity, without behavioral disturbance, psychotic disturbance, mood disturbance, and anxiety; I25.2 Old myocardial infarction; K62.89 Other specified diseases of anus and rectum; S80.811A Abrasion, right lower leg, initial encounter; L85.3 Xerosis cutis; D12.2 Benign neoplasm of ascending colon; Z79.899 Other long term (current) drug therapy; Z85.46 Personal history of malignant neoplasm of prostate; Z85.828 Personal history of other malignant neoplasm of skin; Z20.828 Contact with and (suspected) exposure to other viral communicable diseases
CPT/HCPCS: 0241U; 36000; 36415; 43239; 45380; 45384; 45385; 80053; 81001; 82947; 84132; 85014; 85018; 85025; 93041; 93268; 96360; 99285; 99291; G0328; G0378; 82274; 99100; J2704; J3480; A9270-GY

== ENCOUNTER 2021-11-14 18:36 | Observation (INO) | payer MEDICARE ==
[2021-11-14] MEDS ORDERED: BABY ASPIRIN 81 MG CHEW PO ONE (19:12)
--- NOTE | 2021-11-14 19:18 | ERPHSYRPT ---
- History of Present Illness Time Seen by Provider: 11/14/21 18:38 Historian: patient, family Exam Limitations: no limitations Patient Subjective Stated Complaint: left chest pain Triage Nursing Assessment: Pt brought to the ER by his daugher, hypertensive, rates chest pain as 5/10, states that he was numb all over earlier, did vomit earlier, pt can't tell me when the pain began, stephanie lower ext edema, pulses bounding, skin n/w/d, resting comfortably in the bed Physician History: 89-year-old male with a history of hypertension, hyperlipidemia presented in the ER with chief complaint of sudden onset left-sided chest pain almost an hour prior to arrival, dull aching to sharp, nonradiating, without associated palpita tions or shortness of breath but does have nausea and one episode of vomiting without any abdominal pain. Patient is given 1 nitro prior to arrival and pain started to ease up. No fever chills or cough reported. Timing/Duration: hour(s) (1), constant, sudden, improved Activities at Onset: activity Quality: sharpness Severity of Pain-Max: severe Severity of Pain-Current: moderate Modifying Factors: Improves With: nitroglycerin Associated Symptoms: nausea, vomiting Prior Chest Pain/Cardiac Workup: angina Nitro Today/Relief: 0.4 mg x 1 Aspirin Treatment Today: no aspirin today Allergies/Adverse Reactions: aspirin Adverse Reaction (Verified 11/14/21 18:44) bleeding Home Medications: Allopurinol 100 mg [Zyloprim 100 mg] 100 mg PO DAILY 08/11/19 [History] Glimepiride 1 mg PO DAILY 08/11/19 [History] Sucralfate 1 gm [Carafate 1 GM] 1 gm PO QID 08/11/19 [History] Tamsulosin HCl 0.4 mg [Flomax 0.4 MG] 0.4 mg PO QHS 08/11/19 [History] Gabapentin 100 mg PO TID 02/28/20 [History] Magnesium Oxide 400 mg [Mag-Ox 400] 400 mg PO DAILY 04/08/20 [History] Pantoprazole Sodium [Protonix] 40 mg PO DAILY 04/08/20 [History] Losartan Potassium [Cozaar] 50 mg PO DAILY 05/27/20 [History] Metoprolol Tartrate 100 mg PO BID 02/13/21 [History] Levothyroxine Sodium 50 Mcg [Synthroid 50 Mcg] 50 mcg PO DAILY 03/26/21 [History] clonazePAM [Clonazepam] 0.5 mg PO BID 10/21/21 [History] Hx Tetanus, Diphtheria Vaccination/Date Given: Yes Hx Influenza Vaccination/Date Given: No Hx Pneumococcal Vaccination/Date Given: No Travel Risk - International Travel Have you traveled outside of the country in past 3 weeks: No - Coronavirus Screening Are you exhibiting any of the following symptoms?: No Close contact with a COVID-19 positive Pt in past 14-21 Days: No - Vaccine Status Have you recieved a Covid-19 vaccination: No - Review of Systems Constitutional: No Symptoms Eyes: No Symptoms Ears, Nose, & Throat: Hearing Changes Respiratory: No Symptoms Cardiac: Chest Pain Abdominal/Gastrointestinal: Nausea, Vomiting Genitourinary Symptoms: No Symptoms Musculoskeletal: Arthralgias Skin: No Symptoms Neurological: No Symptoms Endocrine: No Symptoms Hematologic/Lymphatic: No Symptoms Immunological/Allergic: No Symptoms - Past Medical History Pertinent Past Medical History: Yes Neurological History: TIA ENT History: Cataracts Cardiac History: Coronary Artery Disease, High Cholesterol, Hypertension, Myocardial Infarction ([place]) Respiratory History: COPD, Pneumonia Endocrine Medical History: Diabetes Type II, Hypothyroidism Musculoskeletal History: Arthritis GI Medical History: GERD, GI Bleed, Hemorrhoids, Hernia History: No Pertinent History Psycho-Social History: Anxiety Male Reproductive Disorders: Prostate Cancer, Prostate Problems Other Medical History: Gout, 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, HX Prostate CX, [place] - Past Surgical History Past Surgical History: Yes Neuro Surgical History: No Pertinent History Cardiac: No Pertinent History Respiratory: No Pertinent History Gastrointestinal: Hemorrhoidectomy Genitourinary: No Pertinent History Musculoskeletal: Orthopedic Surgery Male Surgical History: No Pertinent History Other Surgical History: LT ARM - Social History Smoking Status: Former smoker How long have you smoked: 25 years Exposure to second hand smoke: Yes (DAUGHTER) Drug Use: none Patient Lives Alone: No Significant Family History: no pertinent family hx - Nursing Vital Signs Nursing Vital Signs: Initial Vital Signs Pulse Rate 68 11/14/21 18:37 Respiratory Rate 17 11/14/21 18:37 Blood Pressure 150/87 11/14/21 18:37 O2 Sat by Pulse Oximetry 98 11/14/21 18:37 Pain Scale Pain Intensity 6 - Physical Exam General Appearance: no apparent distress, alert Eye Exam: PERRL/EOMI, eyes nml inspection, EOM palsy/anisocoria Ears, Nose, Throat Exam: TMs normal, pharynx normal, moist mucous membranes Neck Exam: normal inspection, non-tender, supple, full range of motion Respiratory Exam: normal breath sounds, lungs clear Cardiovascular Exam: regular rate/rhythm, normal heart sounds Gastrointestinal/Abdomen Exam: soft, normal bowel sounds, No tenderness Back Exam: normal inspection Extremity Exam: normal inspection, normal range of motion Neurologic Exam: alert, oriented x 3, cooperative Skin Exam: normal color SpO2 Interpretation: normal SpO2: 98 O2 Delivery: Room Air - Course EKG Interpreted by Me: RATE (68), Sinus Rhythm, NORMAL AXIS, NORMAL QRS, Other (LVH) Ordered Tests: Active Orders 24 hr Category Date Time Status Commercial Technician STAT Care 11/14/21 19:13 Active EKG-ER Only STAT Care 11/14/21 19:12 Active IV Insertion STAT Care 11/14/21 19:12 Active CHEST 1 VIEW (PORTABLE) Stat Exams 11/14/21 19:13 Taken CBC W DIFF Stat Lab 11/14/21 19:15 Completed CMP Stat Lab 11/14/21 19:15 Completed LIPASE Stat Lab 11/14/21 19:38 Completed Manual Differential NC Stat Lab 11/14/21 19:15 Completed NT PRO BNP Stat Lab 11/14/21 19:15 Completed TROPONIN Q3H Lab 11/14/21 19:15 Completed TROPONIN Q3H Lab 11/14/21 22:25 Received TROPONIN Q3H Lab 11/15/21 01:15 Ordered TROPONIN Q3H Lab 11/15/21 04:15 Ordered TROPONIN Q3H Lab 11/15/21 07:15 Ordered Transfer Order Routine Transfer 11/14/21 Ordered Medication Summary Discontinued Medications Generic Name Dose Route Start Last Admin Trade Name Freq PRN Reason Stop Dose Admin Aspirin 324 mg 11/14/21 19:12 11/14/21 19:29 Aspirin 81 Mg Tab.Chew PO 11/14/21 19:13 324 mg STAT ONE Administration Aspirin Confirm 11/14/21 19:24 Aspirin 81 Mg Tab.Chew Administered 11/14/21 19:25 Dose 324 mg .ROUTE .ST-MED ONE Lab/Rad Data: Laboratory Result Diagrams 11/14/21 19:15 11/14/21 19:15 Laboratory Results 11/14/21 11/14/21 11/14/21 Range/Units 21:30 19:38 19:15 WBC (4.0-10.5) K/mm3 RBC (4.1-5.6) M/mm3 Hgb (12.5-18.0) gm/dl Hct (42-50) % MCV (78-100) fl MCH (26-32) pg MCHC (32-36) g/dl RDW (11.5-14.0) % Plt Count (150-450) K/mm3 MPV (7.5-11.0) fl Sodium (137-145) mmol/L Potassium (3.5-5.1) mmol/L Chloride (98-107) mmol/L Carbon Dioxide (22-30) mmol/L Anion Gap (5-15) MEQ/L BUN (9-20) mg/dL Creatinine (0.66-1.25) mg/dL Estimated GFR ML/MIN Glucose (74-106) mg/dL Calcium (8.4-10.2) mg/dL Total Bilirubin (0.2-1.3) mg/dL AST (17-59) U/L ALT (0-50) U/L Alkaline Phosphatase (38-126) U/L Troponin I < 0.012 (0.000-0.034) ng/mL NT-Pro-B Natriuret Pep (0-1800) pg/mL Serum Total Protein (6.3-8.2) g/dL Albumin (3.5-5.0) g/dL Lipase 61 (23-300) U/L Influenza Type A Ag NEGATIVE (NEGATIVE) Influenza Type B Ag NEGATIVE (NEGATIVE) RSV (PCR) NEGATIVE (Negative) SARS-CoV-2 (PCR) NEGATIVE (NEGATIVE) 11/14/21 11/14/21 Range/Units 19:15 19:15 WBC 5.2 (4.0-10.5) K/mm3 RBC 4.30 (4.1-5.6) M/mm3 Hgb 10.2 L (12.5-18.0) gm/dl Hct 34.0 L (42-50) % MCV 79.1 (78-100) fl MCH 23.7 L (26-32) pg MCHC 30.0 L (32-36) g/dl RDW 18.0 H (11.5-14.0) % Plt Count 133 L (150-450) K/mm3 MPV 11.0 (7.5-11.0) fl Sodium 139 (137-145) mmol/L Potassium 3.7 (3.5-5.1) mmol/L Chloride 107 (98-107) mmol/L Carbon Dioxide 24 (22-30) mmol/L Anion Gap 11.9 (5-15) MEQ/L BUN 10 (9-20) mg/dL Creatinine 0.95 (0.66-1.25) mg/dL Estimated GFR > 60.0 ML/MIN Glucose 129 H (74-106) mg/dL Calcium 8.4 (8.4-10.2) mg/dL Total Bilirubin 0.50 (0.2-1.3) mg/dL AST 17 (17-59) U/L ALT 13 (0-50) U/L Alkaline Phosphatase 112 (38-126) U/L Troponin I (0.000-0.034) ng/mL NT-Pro-B Natriuret Pep 1460 (0-1800) pg/mL Serum Total Protein 6.6 (6.3-8.2) g/dL Albumin 3.8 (3.5-5.0) g/dL Lipase (23-300) U/L Influenza Type A Ag (NEGATIVE) Influenza Type B Ag (NEGATIVE) RSV (PCR) (Negative) SARS-CoV-2 (PCR) (NEGATIVE) - Progress Progress: improved Air Movement: good Progress Note: 11/14/21 20:47 Negative initial chest pain work-up. Patient pain is better after receiving nitro at home and does not want any more pain medication. Discussed with and patient is admitted for observation. Blood Culture(s) Obtained: No Antibiotics given: No Discussed with : Nighat Counseled pt/family regarding: lab results, diagnosis, need for follow-up, rad results - Departure Departure Disposition: Home Clinical Impression: Precordial chest pain Condition: Stable Critical Care Time: No Referrals: CHANDANA DUNNE MD [Primary Care Provider] - Follow up/PCP as directed
[2021-11-14 19:19] LABS: Hemoglobin 10.2 gm/dl (12.5-18.0); Mean Cell Volume 79.1 fl (78-100); Mean Corpuscular Hemoglobin 23.7 pg (26-32); Platelet Count 133 K/mm3 (150-450); White Blood Count 5.2 K/mm3 (4.0-10.5)
[2021-11-14] MEDS ORDERED: BABY ASPIRIN 81 MG CHEW ONE (19:24)
[2021-11-14 19:40] LABS: ALBUMIN 3.8 g/dL (3.5-5.0); ALKALINE PHOSPHATASE 112 U/L (38-126); ANION GAP 11.9 MEQ/L (5-15); BLOOD UREA NITROGEN 10 mg/dL (9-20); CHLORIDE 107 mmol/L (98-107); Calcium 8.4 mg/dL (8.4-10.2); Carbon Dioxide 24 mmol/L (22-30); Creatinine 1 0.95 mg/dL (0.66-1.25); EST GLOMERULAR FILTRATION RATE > 60.0 ML/MIN; Glucose 129 mg/dL (74-106); NT PRO BNP 1460 pg/mL (0-1800); Potassium 3.7 mmol/L (3.5-5.1); SGOT/AST 17 U/L (17-59); SGPT/ALT 13 U/L (0-50); SODIUM 139 mmol/L (137-145); Total Protein 6.6 g/dL (6.3-8.2)
[2021-11-14 22:22] LABS: INFLUENZA A NEGATIVE (NEGATIVE); INFLUENZA B NEGATIVE (NEGATIVE); RESPIRATORY SYNCTIAL VIRUS NEGATIVE (Negative); SARS-CoV-2 Xpert Express NEGATIVE (NEGATIVE)
[2021-11-14 23:10] LABS: Eosinophil 7 % (0.00-3.0); Lymphocytes 25 % (24-44); Monocyte 10 % (0.0-12.0); Neutrophils 58 % (36.-66.); Total Cells Counted 100
[2021-11-14 23:11] LABS: ANISOCYTOSIS 2+; Platelet Estimate DECREASED (NORMAL)
[2021-11-14] MEDS ORDERED: APRESOLINE 20 MG/ML INJ ONE (23:48)
[2021-11-14] MEDS ORDERED: APRESOLINE 20 MG/ML INJ IV ONE (23:49)
[2021-11-15] MEDS ORDERED: Zofran 4 MG/2 ML VIAL IV PRN (00:25)
[2021-11-15] MEDS ORDERED: MORPHINE SULFATE 2 MG INJ IV PRN (00:25)
[2021-11-15] MEDS ORDERED: TYLENOL 325 MG PO PRN (00:25)
[2021-11-15] MEDS ORDERED: DUONEB 0.5-3 MG/3 ml Neb IH PRN (00:25)
[2021-11-15] MEDS ORDERED: HUMULIN R SQ PRN (00:25)
[2021-11-15 05:43] LABS: Hematocrit 32.7 % (42-50); Hemoglobin 9.9 gm/dl (12.5-18.0); Mean Cell Volume 78.2 fl (78-100); Mean Corpuscular Hemoglobin 23.7 pg (26-32); Mean Corpuscular Hgb Concent. 30.3 g/dl (32-36); Mean Platelet Volume 10.6 fl (7.5-11.0); Platelet Count 113 K/mm3 (150-450); Red Blood Count 4.18 M/mm3 (4.1-5.6); White Blood Count 4.8 K/mm3 (4.0-10.5)
[2021-11-15 06:25] LABS: Eosinophil 2 % (0.00-3.0); Lymphocytes 29 % (24-44); Monocyte 6 % (0.0-12.0); Neutrophils 63 % (36.-66.); Total Cells Counted 100
[2021-11-15 06:26] LABS: ANISOCYTOSIS 1+; Platelet Estimate NORMAL (NORMAL); Poikilocytosis 1+
[2021-11-15 07:24] LABS: ALBUMIN 3.4 g/dL (3.5-5.0); ALKALINE PHOSPHATASE 112 U/L (38-126); ANION GAP 13.7 MEQ/L (5-15); BLOOD UREA NITROGEN 9 mg/dL (9-20); CHLORIDE 106 mmol/L (98-107); Calcium 8.2 mg/dL (8.4-10.2); Carbon Dioxide 23 mmol/L (22-30); Creatinine 1 0.81 mg/dL (0.66-1.25); EST GLOMERULAR FILTRATION RATE > 60.0 ML/MIN; Glucose 96 mg/dL (74-106); Potassium 3.4 mmol/L (3.5-5.1); SGOT/AST 16 U/L (17-59); SGPT/ALT 11 U/L (0-50); SODIUM 139 mmol/L (137-145); Total Protein 6.3 g/dL (6.3-8.2)
[2021-11-15] MEDS: Carafate 1 GM PO SCH ×4 (07:51→20:58)
[2021-11-15] MEDS: Amaryl 2 MG PO SCH (08:22)
--- NOTE | 2021-11-15 08:49 | XRAY ---
Indication: Chest pain. Comparison: October 17, 2021. Portable chest less inflated with minimal left base subsegmental atelectasis/scarring. There remains a few tiny calcified granulomas. No focal infiltrate, consolidation, or large effusion. Heart not enlarged. Bony thorax intact again with mild osteopenia and degenerative changes. Impression: Continued nonacute chest with chronic features.
[2021-11-15] MEDS: ZYLOPRIM 100 MG PO SCH (09:37)
[2021-11-15] MEDS: Lopressor 50 MG PO SCH ×2 (09:38→20:59)
[2021-11-15] MEDS: Cozaar 50 MG PO SCH (09:38)
[2021-11-15] MEDS: MAG-OX 400 PO SCH (09:38)
[2021-11-15] MEDS: Protonix 40MG Tablet PO SCH (09:38)
[2021-11-15] MEDS: SYNTHROID 50 MCG PO SCH (09:38)
[2021-11-15] MEDS: LASIX 20 MG PO SCH (09:38)
[2021-11-15] MEDS: Neurontin 100 MG PO SCH ×3 (09:38→20:59)
[2021-11-15] MEDS ORDERED: PROTONIX 40 MG IV IV SCH (10:00)
[2021-11-15] MEDS ORDERED: NON-FORMULARY ITEM (Glimepiride [Glimepiride] 1 MG Tablet) PO SCH (10:00)
[2021-11-15] MEDS ORDERED: NON-FORMULARY ITEM (Metoprolol Tartrate [Metoprolol Tartrate] 100 MG Tablet) PO SCH (10:00)
[2021-11-15] MEDS ORDERED: PANTOPRAZOLE SODIUM 40 MG PO SCH (10:00)
[2021-11-15] MEDS ORDERED: NON-FORMULARY ITEM (Losartan Potassium [Cozaar] 25 MG Tablet) PO SCH (10:00)
[2021-11-15] MEDS: Klor Con 10 MEQ PO SCH (13:33)
--- NOTE | 2021-11-15 14:17 | PCM.HP ---
History of Present Illness - Chief Complaint Chief Complaint: Precordial chest pain History of Present Illness: is a 89 year old male with a history of hypertension, hyperlipidemia presented in the ER with chief complaint of sudden onset left-sided chest pain almost an hour prior to arrival, dull aching to sharp, nonradiating, without associated palpitations or shortness of breath but does have nausea and one episode of vomiting without any abdominal pain. Patient is given 1 nitro prior to arrival and pain started to ease up. No fever chills or cough reported. Timing/Duration: hour(s) (1), constant, sudden, improved Activities at Onset: activity Quality: sharpness Severity of Pain-Max: severe Severity of Pain-Current: moderate Modifying Factors: Improves With: nitroglycerin Associated Symptoms: nausea, vomiting Prior Chest Pain/Cardiac Workup: angina Nitro Today/Relief: 0.4 mg x 1 Aspirin Treatment Today: no aspirin today. - Review of Systems Constitutional: No Fever, No Chills Eyes: No Symptoms Ears, Nose, & Throat: No Symptoms Respiratory: No Cough, No Short Of Breath Cardiac: Chest Pain, No Edema, No Syncope Abdominal/Gastrointestinal: No Abdominal Pain, No Nausea, No Vomiting, No Diarrhea Genitourinary Symptoms: No Dysuria Musculoskeletal: No Back Pain, No Neck Pain Skin: No Rash Neurological: No Dizziness, No Focal Weakness, No Sensory Changes Psychological: No Symptoms Endocrine: No Symptoms Hematologic/Lymphatic: No Symptoms Immunological/Allergic: No Symptoms Medications & Allergies Home Medications: Home Medication List Allopurinol 100 mg [Zyloprim 100 mg] 100 mg PO DAILY 08/11/19 [History Confirmed 11/14/21] Glimepiride 1 mg PO DAILY 08/11/19 [History Confirmed 11/14/21] Sucralfate 1 gm [Carafate 1 GM] 1 gm PO QID 08/11/19 [History Confirmed 11/14/21] Tamsulosin HCl 0.4 mg [Flomax 0.4 MG] 0.4 mg PO QHS 08/11/19 [History Confirmed 11/14/21] Gabapentin 100 mg PO TID 02/28/20 [History Confirmed 11/14/21] Magnesium Oxide 400 mg [Mag-Ox 400] 400 mg PO DAILY 04/08/20 [History Confirmed 11/14/21] Pantoprazole Sodium [Protonix] 40 mg PO DAILY 04/08/20 [History Confirmed 11/14/21] Losartan Potassium [Cozaar] 50 mg PO DAILY 05/27/20 [History Confirmed 11/14/21] Metoprolol Tartrate 100 mg PO BID 02/13/21 [History Confirmed 11/14/21] Levothyroxine Sodium 50 Mcg [Synthroid 50 Mcg] 50 mcg PO DAILY 03/26/21 [History Confirmed 11/14/21] Furosemide 20 mg [Lasix 20 mg] 20 mg PO QAM #30 tablet 05/08/21 [Rx Confirmed 11/14/21] Potassium Chloride [Klor-Con 10] 10 meq PO DAILY 11/15/21 [History Confirmed 11/15/21] Allergies/Adverse Reactions: Allergies Allergy/AdvReac Type Severity Reaction Status Date / Time aspirin AdvReac Verified 11/14/21 18:44 - Past Medical History Past Medical History: Yes Neurological History: TIA ENT History: Cataracts Cardiac History: Coronary Artery Disease, High Cholesterol, Hypertension, Myocardial Infarction ([place]) Respiratory History: COPD, Pneumonia Endocrine Medical History: Diabetes Type II, Hypothyroidism Musculoskelatal History: Arthritis GI Medical History: GERD, GI Bleed, Hemorrhoids, Hernia History: No Pertinent History Pyscho-Social History: Anxiety Male Reproductive Disorders: Prostate Cancer, Prostate Problems Comment: Gout, 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, HX Prostate CX, [place] - Past Surgical History Past Surgical History: Yes Neuro Surgical History: No Pertinent History Cardiac History: No Pertinent History Respiratory Surgery: No Pertinent History GI Surgical History: Hemorrhoidectomy Genitourinary Surgical Hx: No Pertinent History Musculskeletal Surgical Hx: Orthopedic Surgery Male Surgical History: No Pertinent History Other Surgical History: LT ARM - Social History Smoking Status: Former smoker How long have you smoked: 25 years Exposure to second hand smoke: No Alcohol: None Drug Use: none Significant Family History: no pertinent family hx - Physical Exam Vital Signs: Vital Signs - 24 hr Temp Pulse Resp BP Pulse Ox 11/15/21 11:44 97.3 F 84 15 181/79 89 L 11/15/21 07:31 97.3 F 70 16 177/79 95 11/15/21 03:55 63 16 96 11/15/21 03:42 98.0 F 61 17 165/72 96 11/15/21 00:30 97.8 F 62 20 196/81 98 11/14/21 23:55 95 H 20 187/104 98 11/14/21 23:00 57 L 11 L 193/91 98 11/14/21 22:59 98 11/14/21 22:00 55 L 12 176/74 100 11/14/21 21:00 53 L 12 184/72 98 11/14/21 20:00 61 13 172/72 99 11/14/21 19:36 61 12 150/66 97 11/14/21 18:37 68 17 150/87 98 General Appearance: no apparent distress, alert Neurologic Exam: alert, oriented x 3, cooperative, normal mood/affect, nml cerebellar function, nml station & gait, sensation nml, No motor deficits Eye Exam: PERRL/EOMI, eyes nml inspection Ears, Nose, Throat Exam: normal ENT inspection, TMs normal, pharynx normal, moist mucous membranes Neck Exam: normal inspection, non-tender, supple, full range of motion Respiratory Exam: normal breath sounds, lungs clear, No respiratory distress Cardiovascular Exam: regular rate/rhythm, normal heart sounds, normal peripheral pulses Gastrointestinal/Abdomen Exam: soft, normal bowel sounds, No tenderness, No mass Back Exam: normal inspection, normal range of motion, No CVA tenderness, No vertebral tenderness Extremity Exam: normal inspection, normal range of motion, pelvis stable Skin Exam: normal color, warm, dry, No rash Wound Assessment: Skin/Wound Assessment Wound/Incision Assessment Start: 11/15/21 01:06 Text: Status: Active Freq: Q6H Protocol: Document 11/15/21 07:06 JAMIE (Rec: 11/15/21 07:54 [email or web address] [id number]) Wound/Incision Assessment Upper Posterior Coccyx Wound Assessment Shift Assessment Wound Type Pressure Ulcer Wound Stage Stage II Drainage Amount None Drainage Odor None/Absent Wound Bed Greatest Portion Red (Granulation) Wound Bed Lesser Portion Pale [facility] Comment bilateral buttocks Wound Photo Photo Taken Yes Date: 11/15/21 Time: 01:20 Lymphatic Exam: No adenopathy Results - Labs Lab/Micro Results: Lab Results-Last 24 Hours 11/14/21 11/14/21 11/14/21 Range/Units 19:15 19:15 19:15 WBC 5.2 (4.0-10.5) K/mm3 RBC 4.30 (4.1-5.6) M/mm3 Hgb 10.2 L (12.5-18.0) gm/dl Hct 34.0 L (42-50) % MCV 79.1 (78-100) fl MCH 23.7 L (26-32) pg MCHC 30.0 L (32-36) g/dl RDW 18.0 H (11.5-14.0) % Plt Count 133 L (150-450) K/mm3 MPV 11.0 (7.5-11.0) fl Segmented Neutrophils 58 (36.-66.) % Lymphocytes (Manual) 25 (24-44) % Monocytes (Manual) 10 (0.0-12.0) % Eosinophils (Manual) 7 H (0.00-3.0) % Platelet Estimate DECREASED (NORMAL) RBC Morphology ABNORMAL Poikilocytosis Anisocytosis 2+ Sodium 139 (137-145) mmol/L Potassium 3.7 (3.5-5.1) mmol/L Chloride 107 (98-107) mmol/L Carbon Dioxide 24 (22-30) mmol/L Anion Gap 11.9 (5-15) MEQ/L BUN 10 (9-20) mg/dL Creatinine 0.95 (0.66-1.25) mg/dL Estimated GFR > 60.0 ML/MIN Glucose 129 H (74-106) mg/dL POC Glucometer (74 to 106) mg/dL Calcium 8.4 (8.4-10.2) mg/dL Total Bilirubin 0.50 (0.2-1.3) mg/dL AST 17 (17-59) U/L ALT 13 (0-50) U/L Alkaline Phosphatase 112 (38-126) U/L Troponin I < 0.012 (0.000-0.034) ng/mL NT-Pro-B Natriuret Pep 1460 (0-1800) pg/mL Serum Total Protein 6.6 (6.3-8.2) g/dL Albumin 3.8 (3.5-5.0) g/dL Lipase (23-300) U/L Influenza Type A Ag (NEGATIVE) Influenza Type B Ag (NEGATIVE) RSV (PCR) (Negative) SARS-CoV-2 (PCR) (NEGATIVE) 11/14/21 11/14/21 11/14/21 Range/Units 19:38 21:30 22:25 WBC (4.0-10.5) K/mm3 RBC (4.1-5.6) M/mm3 Hgb (12.5-18.0) gm/dl Hct (42-50) % MCV (78-100) fl MCH (26-32) pg MCHC (32-36) g/dl RDW (11.5-14.0) % Plt Count (150-450) K/mm3 MPV (7.5-11.0) fl Segmented Neutrophils (36.-66.) % Lymphocytes (Manual) (24-44) % Monocytes (Manual) (0.0-12.0) % Eosinophils (Manual) (0.00-3.0) % Platelet Estimate (NORMAL) RBC Morphology Poikilocytosis Anisocytosis Sodium (137-145) mmol/L Potassium (3.5-5.1) mmol/L Chloride (98-107) mmol/L Carbon Dioxide (22-30) mmol/L Anion Gap (5-15) MEQ/L BUN (9-20) mg/dL Creatinine (0.66-1.25) mg/dL Estimated GFR ML/MIN Glucose (74-106) mg/dL POC Glucometer (74 to 106) mg/dL Calcium (8.4-10.2) mg/dL Total Bilirubin (0.2-1.3) mg/dL AST (17-59) U/L ALT (0-50) U/L Alkaline Phosphatase (38-126) U/L Troponin I < 0.012 (0.000-0.034) ng/mL NT-Pro-B Natriuret Pep (0-1800) pg/mL Serum Total Protein (6.3-8.2) g/dL Albumin (3.5-5.0) g/dL Lipase 61 (23-300) U/L Influenza Type A Ag NEGATIVE (NEGATIVE) Influenza Type B Ag NEGATIVE (NEGATIVE) RSV (PCR) NEGATIVE (Negative) SARS-CoV-2 (PCR) NEGATIVE (NEGATIVE) 11/15/21 11/15/21 11/15/21 Range/Units 01:30 04:30 04:30 WBC 4.8 (4.0-10.5) K/mm3 RBC 4.18 (4.1-5.6) M/mm3 Hgb 9.9 L (12.5-18.0) gm/dl Hct 32.7 L (42-50) % MCV 78.2 (78-100) fl MCH 23.7 L (26-32) pg MCHC 30.3 L (32-36) g/dl RDW 18.0 H (11.5-14.0) % Plt Count 113 L (150-450) K/mm3 MPV 10.6 (7.5-11.0) fl Segmented Neutrophils 63 (36.-66.) % Lymphocytes (Manual) 29 (24-44) % Monocytes (Manual) 6 (0.0-12.0) % Eosinophils (Manual) 2 (0.00-3.0) % Platelet Estimate NORMAL (NORMAL) RBC Morphology ABNORMAL Poikilocytosis 1+ Anisocytosis 1+ Sodium (137-145) mmol/L Potassium (3.5-5.1) mmol/L Chloride (98-107) mmol/L Carbon Dioxide (22-30) mmol/L Anion Gap (5-15) MEQ/L BUN (9-20) mg/dL Creatinine (0.66-1.25) mg/dL Estimated GFR ML/MIN Glucose (74-106) mg/dL POC Glucometer (74 to 106) mg/dL Calcium (8.4-10.2) mg/dL Total Bilirubin (0.2-1.3) mg/dL AST (17-59) U/L ALT (0-50) U/L Alkaline Phosphatase (38-126) U/L Troponin I < 0.012 < 0.012 (0.000-0.034) ng/mL NT-Pro-B Natriuret Pep (0-1800) pg/mL Serum Total Protein (6.3-8.2) g/dL Albumin (3.5-5.0) g/dL Lipase (23-300) U/L Influenza Type A Ag (NEGATIVE) Influenza Type B Ag (NEGATIVE) RSV (PCR) (Negative) SARS-CoV-2 (PCR) (NEGATIVE) 11/15/21 11/15/21 11/15/21 Range/Units 04:30 07:12 07:40 WBC (4.0-10.5) K/mm3 RBC (4.1-5.6) M/mm3 Hgb (12.5-18.0) gm/dl Hct (42-50) % MCV (78-100) fl MCH (26-32) pg MCHC (32-36) g/dl RDW (11.5-14.0) % Plt Count (150-450) K/mm3 MPV (7.5-11.0) fl Segmented Neutrophils (36.-66.) % Lymphocytes (Manual) (24-44) % Monocytes (Manual) (0.0-12.0) % Eosinophils (Manual) (0.00-3.0) % Platelet Estimate (NORMAL) RBC Morphology Poikilocytosis Anisocytosis Sodium 139 (137-145) mmol/L Potassium 3.4 L (3.5-5.1) mmol/L Chloride 106 (98-107) mmol/L Carbon Dioxide 23 (22-30) mmol/L Anion Gap 13.7 (5-15) MEQ/L BUN 9 (9-20) mg/dL Creatinine 0.81 (0.66-1.25) mg/dL Estimated GFR > 60.0 ML/MIN Glucose 96 (74-106) mg/dL POC Glucometer 99 (74 to 106) mg/dL Calcium 8.2 L (8.4-10.2) mg/dL Total Bilirubin 0.50 (0.2-1.3) mg/dL AST 16 L (17-59) U/L ALT 11 (0-50) U/L Alkaline Phosphatase 112 (38-126) U/L Troponin I < 0.012 (0.000-0.034) ng/mL NT-Pro-B Natriuret Pep (0-1800) pg/mL Serum Total Protein 6.3 (6.3-8.2) g/dL Albumin 3.4 L (3.5-5.0) g/dL Lipase (23-300) U/L Influenza Type A Ag (NEGATIVE) Influenza Type B Ag (NEGATIVE) RSV (PCR) (Negative) SARS-CoV-2 (PCR) (NEGATIVE) 11/15/21 Range/Units 11:20 WBC (4.0-10.5) K/mm3 RBC (4.1-5.6) M/mm3 Hgb (12.5-18.0) gm/dl Hct (42-50) % MCV (78-100) fl MCH (26-32) pg MCHC (32-36) g/dl RDW (11.5-14.0) % Plt Count (150-450) K/mm3 MPV (7.5-11.0) fl Segmented Neutrophils (36.-66.) % Lymphocytes (Manual) (24-44) % Monocytes (Manual) (0.0-12.0) % Eosinophils (Manual) (0.00-3.0) % Platelet Estimate (NORMAL) RBC Morphology Poikilocytosis Anisocytosis Sodium (137-145) mmol/L Potassium (3.5-5.1) mmol/L Chloride (98-107) mmol/L Carbon Dioxide (22-30) mmol/L Anion Gap (5-15) MEQ/L BUN (9-20) mg/dL Creatinine (0.66-1.25) mg/dL Estimated GFR ML/MIN Glucose (74-106) mg/dL POC Glucometer 172 H (74 to 106) mg/dL Calcium (8.4-10.2) mg/dL Total Bilirubin (0.2-1.3) mg/dL AST (17-59) U/L ALT (0-50) U/L Alkaline Phosphatase (38-126) U/L Troponin I (0.000-0.034) ng/mL NT-Pro-B Natriuret Pep (0-1800) pg/mL Serum Total Protein (6.3-8.2) g/dL Albumin (3.5-5.0) g/dL Lipase (23-300) U/L Influenza Type A Ag (NEGATIVE) Influenza Type B Ag (NEGATIVE) RSV (PCR) (Negative) SARS-CoV-2 (PCR) (NEGATIVE) Accuchecks Date 11/15/21 Date 11/15/21 Time 11:39 Time 07:40 - Radiology Impressions Radiology Exams & Impressions: Radiology Procedures Category Date Time Status CHEST 1 VIEW (PORTABLE) Stat Exams 11/14/21 19:13 Completed Assessment/Plan (1) Precordial chest pain Current Visit: Yes Status: Acute Assessment & Plan: Chief Complaint Diagnosis Precordial chest pain Allergies Allergy/AdvReac Type Severity Reaction Status Date / Time aspirin AdvReac Verified 11/14/21 18:44 Vital Signs (Last 24 hours) Temp Pulse Resp BP Pulse Ox 11/15/21 11:44 97.3 F 84 15 181/79 89 L 11/15/21 07:31 97.3 F 70 16 177/79 95 11/15/21 03:55 63 16 96 11/15/21 03:42 98.0 F 61 17 165/72 96 11/15/21 00:30 97.8 F 62 20 196/81 98 11/14/21 23:55 95 H 20 187/104 98 11/14/21 23:00 57 L 11 L 193/91 98 11/14/21 22:59 98 11/14/21 22:00 55 L 12 176/74 100 11/14/21 21:00 53 L 12 184/72 98 11/14/21 20:00 61 13 172/72 99 11/14/21 19:36 61 12 150/66 97 11/14/21 18:37 68 17 150/87 98 Home Medications Medication Instructions Recorded Confirmed Last Taken Type Potassium Chloride [Klor-Con 10] 10 meq PO DAILY 11/15/21 11/15/21 Unknown History Current Medications Generic Name Dose Route Start Last Admin Trade Name Freq PRN Reason Stop Dose Admin Acetaminophen 650 mg 11/15/21 00:25 Acetaminophen 325 Mg Tablet PO 12/15/21 00:24 Q4H PRN PRN PAIN AND/OR FEVER Albuterol/Ipratropium 3 ml 11/15/21 00:25 Ipratropium/Albuterol Sulfate 3 Ml Ampul.Neb IH 12/15/21 00:24 Q4HPRN PRN SHORTNESS OF BREATH/WHEEZING Allopurinol 100 mg 11/15/21 10:00 11/15/21 09:37 Allopurinol 100 Mg Tablet PO 12/15/21 09:59 100 mg DAILY DRAKE Administration Furosemide 20 mg 11/15/21 10:00 11/15/21 09:38 Furosemide 20 Mg Tablet PO 12/15/21 09:59 20 mg QAM DRAKE Administration Gabapentin 100 mg 11/15/21 10:00 11/15/21 09:38 Gabapentin 100 Mg Capsule PO 12/15/21 09:59 100 mg TID DRAKE Administration Glimepiride 1 mg 11/15/21 08:00 11/15/21 08:22 Glimepiride 2 Mg Tablet PO 12/15/21 07:59 1 mg BREAKFAST DRAKE Administration Insulin Human Regular 0 unit 11/15/21 00:25 11/15/21 11:51 Insulin Regular, Human 1 Unit SQ 12/15/21 00:24 3 unit UD PRN Administration HYPERGLYCEMIA Levothyroxine Sodium 50 mcg 11/15/21 10:00 11/15/21 09:38 Levothyroxine Sodium 50 Mcg Tablet PO 12/15/21 09:59 50 mcg DAILY DRAKE Administration Losartan Potassium 50 mg 11/15/21 10:00 11/15/21 09:38 Losartan Potassium 50 Mg Tablet PO 12/15/21 09:59 50 mg DAILY DRAKE Administration Magnesium Oxide 400 mg 11/15/21 10:00 11/15/21 09:38 Magnesium Oxide 400 Mg Tablet PO 12/15/21 09:59 400 mg DAILY DRAKE Administration Metoprolol Tartrate 100 mg 11/15/21 10:00 11/15/21 09:38 Metoprolol Tartrate 50 Mg Tablet PO 12/15/21 09:59 100 mg BID DRAKE Administration Morphine Sulfate 2 mg 11/15/21 00:25 Morphine Sulfate 2 Mg/Ml Inj IV 11/20/21 00:24 Q4H PRN PRN PAIN Ondansetron HCl 4 mg 11/15/21 00:25 Ondansetron Hcl 4 Mg/2 Ml Vial IV 12/15/21 00:24 Q6H PRN PRN NAUSEA/VOMITING Pantoprazole Sodium 40 mg 11/15/21 10:00 11/15/21 09:38 Protonix (Pantoprazole) 40 Mg Tablet PO 12/15/21 09:59 40 mg DAILY DRAKE Administration Potassium Chloride 10 meq 11/15/21 13:19 11/15/21 13:33 Potassium Chloride 10 Meq Tablet PO 12/15/21 13:18 10 meq DAILY DRAKE Administration Sucralfate 1 g 11/15/21 07:30 11/15/21 11:50 Sucralfate 1 G Tablet PO 12/15/21 07:29 1 g ACHS DRAKE Administration Tamsulosin HCl 0.4 mg 11/15/21 22:00 Tamsulosin Hcl 0.4 Mg Cap PO 12/15/21 21:59 QHS DRAKE Discontinued Medications Generic Name Dose Route Start Last Admin Trade Name Freq PRN Reason Stop Dose Admin Aspirin 324 mg 11/14/21 19:12 11/14/21 19:29 Aspirin 81 Mg Tab.Chew PO 11/14/21 19:13 324 mg STAT ONE Administration Aspirin Confirm 11/14/21 19:24 Aspirin 81 Mg Tab.Chew Administered 11/14/21 19:25 Dose 324 mg .ROUTE .STK-MED ONE Hydralazine HCl 10 mg 11/14/21 23:49 11/14/21 23:50 Hydralazine Hcl 20 Mg/Ml Vial IV 11/14/21 23:50 10 mg ONCE ONE Administration Hydralazine HCl Confirm 11/14/21 23:48 Hydralazine Hcl 20 Mg/Ml Vial Administered 11/14/21 23:49 Dose 20 mg .ROUTE .STK-MED ONE Pantoprazole Sodium 40 mg 11/15/21 10:00 Pantoprazole 40 Mg Vial IV 12/15/21 09:59 Q24H10 DRAKE Intake & Output (Last 24 hours) 11/13/21 11/14/21 11/15/21 11/16/21 11:59 11:59 11:59 11:59 Intake Total 120 240 Output Total 700 600 Balance -580 -360 Weight 88.1 kg Laboratory Results (Last 24 hours) 11/15/21 11/15/21 11/15/21 11:20 07:40 07:12 WBC RBC Hgb Hct MCV MCH MCHC RDW Plt Count MPV Segmented Neutrophils Lymphocytes (Manual) Monocytes (Manual) Eosinophils (Manual) Platelet Estimate RBC Morphology Poikilocytosis Anisocytosis Sodium Potassium Chloride Carbon Dioxide Anion Gap BUN Creatinine Estimated GFR Glucose POC Glucometer 172 H 99 Calcium Total Bilirubin AST ALT Alkaline Phosphatase Troponin I < 0.012 NT-Pro-B Natriuret Pep Serum Total Protein Albumin Lipase Influenza Type A Ag Influenza Type B Ag RSV (PCR) SARS-CoV-2 (PCR) 11/15/21 11/15/21 11/15/21 04:30 04:30 04:30 WBC 4.8 RBC 4.18 Hgb 9.9 L Hct 32.7 L MCV 78.2 MCH 23.7 L MCHC 30.3 L RDW 18.0 H Plt Count 113 L MPV 10.6 Segmented Neutrophils 63 Lymphocytes (Manual) 29 Monocytes (Manual) 6 Eosinophils (Manual) 2 Platelet Estimate NORMAL RBC Morphology ABNORMAL Poikilocytosis 1+ Anisocytosis 1+ Sodium 139 Potassium 3.4 L Chloride 106 Carbon Dioxide 23 Anion Gap 13.7 BUN 9 Creatinine 0.81 Estimated GFR > 60.0 Glucose 96 POC Glucometer Calcium 8.2 L Total Bilirubin 0.50 AST 16 L ALT 11 Alkaline Phosphatase 112 Troponin I < 0.012 NT-Pro-B Natriuret Pep Serum Total Protein 6.3 Albumin 3.4 L Lipase Influenza Type A Ag Influenza Type B Ag RSV (PCR) SARS-CoV-2 (PCR) 11/15/21 11/14/21 11/14/21 01:30 22:25 21:30 WBC RBC Hgb Hct MCV MCH MCHC RDW Plt Count MPV Segmented Neutrophils Lymphocytes (Manual) Monocytes (Manual) Eosinophils (Manual) Platelet Estimate RBC Morphology Poikilocytosis Anisocytosis Sodium Potassium Chloride Carbon Dioxide Anion Gap BUN Creatinine Estimated GFR Glucose POC Glucometer Calcium Total Bilirubin AST ALT Alkaline Phosphatase Troponin I < 0.012 < 0.012 NT-Pro-B Natriuret Pep Serum Total Protein Albumin Lipase Influenza Type A Ag NEGATIVE Influenza Type B Ag NEGATIVE RSV (PCR) NEGATIVE SARS-CoV-2 (PCR) NEGATIVE 11/14/21 11/14/21 11/14/21 19:38 19:15 19:15 WBC RBC Hgb Hct MCV MCH MCHC RDW Plt Count MPV Segmented Neutrophils Lymphocytes (Manual) Monocytes (Manual) Eosinophils (Manual) Platelet Estimate RBC Morphology Poikilocytosis Anisocytosis Sodium 139 Potassium 3.7 Chloride 107 Carbon Dioxide 24 Anion Gap 11.9 BUN 10 Creatinine 0.95 Estimated GFR > 60.0 Glucose 129 H POC Glucometer Calcium 8.4 Total Bilirubin 0.50 AST 17 ALT 13 Alkaline Phosphatase 112 Troponin I < 0.012 NT-Pro-B Natriuret Pep 1460 Serum Total Protein 6.6 Albumin 3.8 Lipase 61 Influenza Type A Ag Influenza Type B Ag RSV (PCR) SARS-CoV-2 (PCR) 11/14/21 19:15 WBC 5.2 RBC 4.30 Hgb 10.2 L Hct 34.0 L MCV 79.1 MCH 23.7 L MCHC 30.0 L RDW 18.0 H Plt Count 133 L MPV 11.0 Segmented Neutrophils 58 Lymphocytes (Manual) 25 Monocytes (Manual) 10 Eosinophils (Manual) 7 H Platelet Estimate DECREASED RBC Morphology ABNORMAL Poikilocytosis Anisocytosis 2+ Sodium Potassium Chloride Carbon Dioxide Anion Gap BUN Creatinine Estimated GFR Glucose POC Glucometer Calcium Total Bilirubin AST ALT Alkaline Phosphatase Troponin I NT-Pro-B Natriuret Pep Serum Total Protein Albumin Lipase Influenza Type A Ag Influenza Type B Ag RSV (PCR) SARS-CoV-2 (PCR) Orders (Last 24 hours) Category Date Time Status Bedrest ROUTINE Activity 11/15/21 00:25 Active Up With Assistance ROUTINE Activity 11/15/21 00:25 Active Radiological Defense Officer STAT Care 11/14/21 19:13 Completed Code Status Order ROUTINE Care 11/15/21 00:25 Active EKG-ER Only STAT Care 11/14/21 19:12 Completed Fall Protocol Q1H Care 11/15/21 00:25 Active IV Care Q6H Care 11/15/21 00:25 Active IV Insertion STAT Care 11/14/21 19:12 Completed POCT Glucose Check ACHS Care 11/15/21 00:[address] in Observation ROUTINE Care 11/15/21 00:25 Active Arnav Barrios, Apply ROUTINE Care 11/15/21 00:25 Active Weight,Daily 0600 Care 11/15/21 00:25 Active Consistent Carbohydrate Diet 1800 Calorie Diet 11/15/21 Breakfast Active CHEST 1 VIEW (PORTABLE) Stat Exams 11/14/21 19:13 Completed CBC W DIFF AM.LAB Lab 11/15/21 04:30 Completed CBC W DIFF Stat Lab 11/14/21 19:15 Completed CMP AM.LAB Lab 11/15/21 04:30 Completed CMP Stat Lab 11/14/21 19:15 Completed COVID/FLU/RSV Panel Stat Lab 11/14/21 21:30 Completed LIPASE Stat Lab 11/14/21 19:38 Completed Manual Differential NC Routine Lab 11/15/21 04:30 Completed Manual Differential NC Stat Lab 11/14/21 19:15 Completed NT PRO BNP Stat Lab 11/14/21 19:15 Completed POCT GLUCOSE Stat Lab 11/15/21 07:12 Completed POCT GLUCOSE Stat Lab 11/15/21 11:20 Completed TROPONIN Q3H Lab 11/14/21 19:15 Completed TROPONIN Q3H Lab 11/14/21 22:25 Completed TROPONIN Q3H Lab 11/15/21 01:30 Completed TROPONIN Q3H Lab 11/15/21 04:30 Completed TROPONIN Q3H Lab 11/15/21 07:40 Completed Acetaminophen 325 mg [Tylenol 325 mg] Med 11/15/21 00:25 Active 650 mg PO Q4H PRN PRN Albuterol/Ipratropium 3ml Neb* [DUONEB 0.5-3 MG/3 ml Med 11/15/21 00:25 Active Neb] 3 ml IH Q4HPRN PRN Allopurinol 100 mg [Zyloprim 100 mg] Med 11/15/21 10:00 Active 100 mg PO DAILY Aspirin 81 gm Chew [Baby Aspirin 81 mg Chew] Med 11/14/21 19:24 Discon tinued 324 mg .ROUTE .STK-MED ONE Aspirin 81 gm Chew [Baby Aspirin 81 mg Chew] Med 11/14/21 19:12 Discontinued 324 mg PO STAT ONE Furosemide 20 mg [Lasix 20 mg] Med 11/15/21 10:00 Active 20 mg PO QAM Gabapentin 100 mg [Neurontin 100 MG] Med 11/15/21 10:00 Active 100 mg PO TID Glimepiride 2 mg [Amaryl 2 MG] Med 11/15/21 08:00 Active 1 mg PO BREAKFAST HydrALAzine HCL 20 MG INJ [Apresoline 20 mg/ml Inj Med 11/14/21 23:49 Discontinued *] 10 mg IV ONCE ONE HydrALAzine HCL 20 MG INJ [Apresoline 20 mg/ml Inj Med 11/14/21 23:48 Discontinued *] 20 mg .ROUTE .STK-MED ONE Insulin Regular, Human [Humulin R] Med 11/15/21 00:25 Active See Dose Instructions SQ UD PRN Levothyroxine Sodium 50 Mcg [Synthroid 50 Mcg] Med 11/15/21 10:00 Active 50 mcg PO DAILY Losartan Potassium 50 mg [Cozaar 50 MG] Med 11/15/21 10:00 Active 50 mg PO DAILY Magnesium Oxide 400 mg [Mag-Ox 400] Med 11/15/21 10:00 Active 400 mg PO DAILY Metoprolol Tartrate 50 mg [Lopressor 50 MG] Med 11/15/21 10:00 Active 100 mg PO BID Morphine Sulfate 2 mg Inj Med 11/15/21 00:25 Active 2 mg IV Q4H PRN PRN Ondansetron HCl 4 mg/2 ml [Zofran 4 MG/2 ML VIAL] Med 11/15/21 00:25 Active 4 mg IV Q6H PRN PRN PANTOPRAZOLE 40 mg Tablet [Protonix 40MG Tablet] Med 11/15/21 10:00 Active 40 mg PO DAILY Pantoprazole 40 mg [Protonix 40 mg IV] Med 11/15/21 10:00 Discontinued 40 mg IV Q24H10 Potassium Chloride 10 Meq Tab* [Klor Con 10 MEQ] Med 11/15/21 13:19 Active 10 meq PO DAILY Sucralfate 1 gm [Carafate 1 GM] Med 11/15/21 07:30 Active 1 g PO ACHS Tamsulosin HCl 0.4 mg [Flomax 0.4 MG] Med 11/15/21 22:00 Active 0.4 mg PO QHS Oxygen Nasal Cannula 2 lpm RT 11/15/21 00:25 Completed Pulse Oximetry .spot check RT 11/15/21 04:23 Completed Respiratory Therapy Assessment DAILY RT 11/15/21 04:23 Completed Patient Care Notes (Last 24 hours) 11/15/21 12:59 Case Management Note by FelisaSol DAUGHTER STATED THAT SHE HAD BEDBUGS IN THE PAST AND THOUGHT THEY WERE GONE- SHE REPORTS SHE DID SEE 1 AGAIN FOR THE FIRST TIME YESTERDAY AND WILL TREAT THE HOUSE AGAIN. Initialized on 11/15/21 12:59 - END OF NOTE Code(s): R07.2 - PRECORDIAL PAIN (2) ACS (acute coronary syndrome) Current Visit: No Status: Acute Code(s): I24.9 - ACUTE ISCHEMIC HEART DISEASE, UNSPECIFIED (3) Atrial fib/flutter, transient Current Visit: No Status: Acute Code(s): [id number] - (4) Generalized weakness Current Visit: No Status: Acute Code(s): R53.1 - WEAKNESS (5) HTN (hypertension) Current Visit: No Status: Acute Code(s): I10 - ESSENTIAL (PRIMARY) HYPERTENSION
[2021-11-15] MEDS ORDERED: Flomax 0.4 MG PO SCH (22:00)
[2021-11-15] MEDS ORDERED: APRESOLINE 20 MG/ML INJ IV ONE (23:52)
[2021-11-16 07:12] VITALS: BP 144/63; PULSE 63; O2SAT 94
[2021-11-16] MEDS: Carafate 1 GM PO SCH (07:58)
[2021-11-16] MEDS: Amaryl 2 MG PO SCH (07:58)
[2021-11-16] MEDS: Protonix 40MG Tablet PO SCH (08:00)
[2021-11-16] MEDS: Lopressor 50 MG PO SCH (08:00)
[2021-11-16] MEDS: MAG-OX 400 PO SCH (08:00)
[2021-11-16] MEDS: ZYLOPRIM 100 MG PO SCH (08:01)
[2021-11-16] MEDS: Neurontin 100 MG PO SCH (08:01)
[2021-11-16] MEDS: SYNTHROID 50 MCG PO SCH (08:01)
[2021-11-16] MEDS: Cozaar 50 MG PO SCH (08:01)
[2021-11-16] MEDS: Klor Con 10 MEQ PO SCH (08:02)
[2021-11-16] MEDS: LASIX 20 MG PO SCH (08:02)
--- NOTE | 2021-11-16 19:15 | PCM.DS ---
Discharge Summary Date of Admission: 11/15/21 00:20 Admitting Physician: CHANDANA DUNNE Primary Care Provider: CHANDANA DUNNE Allergies Allergies aspirin Adverse Reaction (Verified 11/14/21 18:44) bleeding Hospital Summary - Hospital Course Hospital Course: Chief Complaint Diagnosis Precordial chest pain Allergies Allergy/AdvReac Type Severity Reaction Status Date / Time aspirin AdvReac Verified 11/14/21 18:44 Vital Signs (Last 24 hours) Temp Pulse Resp BP Pulse Ox 11/16/21 07:11 96.9 F 63 16 144/63 94 L 11/16/21 03:13 97.5 F 59 L 18 184/76 96 11/15/21 23:30 98.0 F 61 20 189/79 97 11/15/21 19:45 97.8 F 64 19 173/76 96 Home Medications Medication Instructions Recorded Confirmed Last Taken Type Potassium Chloride [Klor-Con 10] 10 meq PO DAILY 11/15/21 11/15/21 Unknown History Current Medications Discontinued Medications Generic Name Dose Route Start Last Admin Trade Name Freq PRN Reason Stop Dose Admin Acetaminophen 650 mg 11/15/21 00:25 Acetaminophen 325 Mg Tablet PO 12/15/21 00:24 Q4H PRN PRN PAIN AND/OR FEVER Albuterol/Ipratropium 3 ml 11/15/21 00:25 Ipratropium/Albuterol Sulfate 3 Ml Ampul.Neb IH 12/15/21 00:24 Q4HPRN PRN SHORTNESS OF BREATH/WHEEZING Allopurinol 100 mg 11/15/21 10:00 11/16/21 08:01 Allopurinol 100 Mg Tablet PO 12/15/21 09:59 100 mg DAILY DRAKE Administration Aspirin 324 mg 11/14/21 19:12 11/14/21 19:29 Aspirin 81 Mg Tab.Chew PO 11/14/21 19:13 324 mg STAT ONE Administration Aspirin Confirm 11/14/21 19:24 Aspirin 81 Mg Tab.Chew Administered 11/14/21 19:25 Dose 324 mg .ROUTE .STK-MED ONE Furosemide 20 mg 11/15/21 10:00 11/16/21 08:02 Furosemide 20 Mg Tablet PO 12/15/21 09:59 20 mg QAM DRAKE Administration Gabapentin 100 mg 11/15/21 10:00 11/16/21 08:01 Gabapentin 100 Mg Capsule PO 12/15/21 09:59 100 mg TID DRAKE Administration Glimepiride 1 mg 11/15/21 08:00 11/16/21 07:58 Glimepiride 2 Mg Tablet PO 12/15/21 07:59 1 mg BREAKFAST DRAKE Administration Hydralazine HCl 10 mg 11/14/21 23:49 11/14/21 23:50 Hydralazine Hcl 20 Mg/Ml Vial IV 11/14/21 23:50 10 mg ONCE ONE Administration Hydralazine HCl Confirm 11/14/21 23:48 Hydralazine Hcl 20 Mg/Ml Vial Administered 11/14/21 23:49 Dose 20 mg .ROUTE .STK-MED ONE Hydralazine HCl 10 mg 11/15/21 23:52 11/15/21 23:58 Hydralazine Hcl 20 Mg/Ml Vial IV 11/15/21 23:53 10 mg ONCE ONE Administration Insulin Human Regular 0 unit 11/15/21 00:25 11/15/21 11:51 Insulin Regular, Human 1 Unit SQ 12/15/21 00:24 3 unit UD PRN Administration HYPERGLYCEMIA Levothyroxine Sodium 50 mcg 11/15/21 10:00 11/16/21 08:01 Levothyroxine Sodium 50 Mcg Tablet PO 12/15/21 09:59 50 mcg DAILY DRAKE Administration Losartan Potassium 50 mg 11/15/21 10:00 11/16/21 08:01 Losartan Potassium 50 Mg Tablet PO 12/15/21 09:59 50 mg DAILY DRAKE Administration Magnesium Oxide 400 mg 11/15/21 10:00 11/16/21 08:00 Magnesium Oxide 400 Mg Tablet PO 12/15/21 09:59 400 mg DAILY DRAKE Administration Metoprolol Tartrate 100 mg 11/15/21 10:00 11/16/21 08:00 Metoprolol Tartrate 50 Mg Tablet PO 12/15/21 09:59 100 mg BID DRAKE Administration Morphine Sulfate 2 mg 11/15/21 00:25 Morphine Sulfate 2 Mg/Ml Inj IV 11/20/21 00:24 Q4H PRN PRN PAIN Ondansetron HCl 4 mg 11/15/21 00:25 Ondansetron Hcl 4 Mg/2 Ml Vial IV 12/15/21 00:24 Q6H PRN PRN NAUSEA/VOMITING Pantoprazole Sodium 40 mg 11/15/21 10:00 Pantoprazole 40 Mg Vial IV 12/15/21 09:59 Q24H10 DRAKE Pantoprazole Sodium 40 mg 11/15/21 10:00 11/16/21 08:00 Protonix (Pantoprazole) 40 Mg Tablet PO 12/15/21 09:59 40 mg DAILY DRAKE Administration Potassium Chloride 10 meq 11/15/21 13:19 11/16/21 08:02 Potassium Chloride 10 Meq Tablet PO 12/15/21 13:18 10 meq DAILY DRAKE Administration Sucralfate 1 g 11/15/21 07:30 11/16/21 07:58 Sucralfate 1 G Tablet PO 12/15/21 07:29 1 g ACHS DRAKE Administration Tamsulosin HCl 0.4 mg 11/15/21 22:00 11/15/21 20:59 Tamsulosin Hcl 0.4 Mg Cap PO 12/15/21 21:59 0.4 mg QHS DRAKE Administration Intake & Output (Last 24 hours) 11/14/21 11/15/21 11/16/21 11/17/21 11:59 11:59 11:59 11:59 Intake Total 120 1940 Output Total 700 1600 Balance -580 340 Weight 88.1 kg 85.9 kg Laboratory Results (Last 24 hours) 11/16/21 11/15/21 07:03 20:41 POC Glucometer 121 H 176 H Orders (Last 24 hours) Category Date Time Status Discharge Routine Discharge 11/16/21 Ordered POCT GLUCOSE Stat Lab 11/15/21 20:41 Completed POCT GLUCOSE Stat Lab 11/16/21 07:03 Completed HydrALAzine HCL 20 MG INJ [Apresoline 20 mg/ml Inj Med 11/15/21 23:52 Discontinued *] 10 mg IV ONCE ONE Tamsulosin HCl 0.4 mg [Flomax 0.4 MG] Med 11/15/21 22:00 Discontinued 0.4 mg PO QHS Patient Care Notes (Last 24 hours) 11/16/21 09:48 Case Management Note by Sol Roberto S/W DAUGHTER PIPE- SHE CONTINUES TO DENY ANY NEW NEEDS FOR PATIENT AT TIME OF DC. SHE PLANS FOR HIM TO RETURN HOME TO HIS PRIOR LEVEL OF FUNCTIONING AT TIME OF DC. PATIENT'S DAUGHTER PROVIDES 24 HR CARE FOR HIM. SHE HAS DECLINED ANY HHC PATIENT IS NOT RECEPTIVE TO THEIR ASSISTANCE Initialized on 11/16/21 09:48 - END OF NOTE 11/15/21 23:51 Nursing Note by Bambi Coto This nurse contacted Dr. Dunne and reported patient's BP 189/79 HR 61. Order received for IV hydralazine. Initialized on 11/15/21 23:51 - END OF NOTE 11/15/21 21:11 Nursing Note by Leydi Whittaker states no questions for MD. I don't know what it would be unless it's if I can go home. Initialized on 11/15/21 21:11 - END OF NOTE - Vitals & Intake/Output Vital Signs: Vital Signs Temperature 96.9 F 11/16/21 07:11 Pulse Rate 63 11/16/21 07:11 Respiratory Rate 16 11/16/21 07:11 Blood Pressure 144/63 11/16/21 07:11 O2 Sat by Pulse Oximetry 94 L 11/16/21 07:11 Intake & Output: Intake & Output 11/14/21 11/15/21 11/16/21 11/17/21 11:59 11:59 11:59 11:59 Intake Total 120 1940 Output Total 700 1600 Balance -580 340 Weight 88.1 kg 85.9 kg - Lab Result Diagrams: 11/15/21 04:30 11/15/21 04:30 Lab Results-Last 24 Hrs: Lab Results-Last 24 Hours 11/15/21 11/16/21 Range/Units 20:41 07:03 POC Glucometer 176 H 121 H (74 to 106) mg/dL Micro Results-Entire Visit: Accuchecks Date 11/16/21 Date 11/15/21 Time 07:11 Time 21:10 - Radiology Exams Ordered Rad Exams-Entire Visit: Radiology Procedures Category Date Time Status CHEST 1 VIEW (PORTABLE) Stat Exams 11/14/21 19:13 Completed - Procedures and Test Procedures and Tests throughout Hospitalization: Therapy Orders & Screens 11/15/21 00:25 Oxygen Nasal Cannula 2 lpm Comment: 11/15/21 04:23 Respiratory Therapy Assessment DAILY Comment: Diagnosis: Precordial chest pain Discharge Exam General Appearance: no apparent distress, alert Neurologic Exam: alert, oriented x 3, cooperative, normal mood/affect, nml cerebellar function, sensation nml, No motor deficits Eye Exam: PERRL, EOMI, eyes nml inspection Ears, Nose, Throat Exam: normal ENT inspection, pharynx normal, moist mucous membranes Neck Exam: normal inspection, non-tender, supple, full range of motion Respiratory Exam: normal breath sounds, lungs clear, No respiratory distress Cardiovascular Exam: regular rate/rhythm, normal heart sounds Gastrointestinal/Abdomen Exam: soft, No tenderness, No mass Male Genitalia Exam: deferred Rectal Exam: deferred Back Exam: normal inspection, normal range of motion, No CVA tenderness, No vertebral tenderness Extremity Exam: normal inspection, normal range of motion Skin Exam: normal color, warm, dry Final Diagnosis/Problem List - Final Discharge Diagnosis/Problem (1) Precordial chest pain Status: Resolved Code(s): R07.2 - PRECORDIAL PAIN (2) ACS (acute coronary syndrome) Status: Resolved Code(s): I24.9 - ACUTE ISCHEMIC HEART DISEASE, UNSPECIFIED (3) Atrial fib/flutter, transient Status: Chronic Code(s): IMK8007 - (4) Generalized weakness Status: Resolved Code(s): R53.1 - WEAKNESS (5) HTN (hypertension) Status: Acute Code(s): I10 - ESSENTIAL (PRIMARY) HYPERTENSION - Discharge Discharge Date: 11/16/21 Disposition: Home, Self-Care Condition: Stable Prescriptions: Continue Tamsulosin HCl 0.4 mg [Flomax 0.4 MG] 0.4 mg PO QHS Allopurinol 100 mg [Zyloprim 100 mg] 100 mg PO DAILY Sucralfate 1 gm [Carafate 1 GM] 1 gm PO QID Glimepiride 1 mg PO DAILY Gabapentin 100 mg PO TID Pantoprazole Sodium [Protonix] 40 mg PO DAILY Magnesium Oxide 400 mg [Mag-Ox 400] 400 mg PO DAILY Losartan Potassium [Cozaar] 50 mg PO DAILY Metoprolol Tartrate 100 mg PO BID Levothyroxine Sodium 50 Mcg [Synthroid 50 Mcg] 50 mcg PO DAILY Furosemide 20 mg [Lasix 20 mg] 20 mg PO QAM #30 tablet Potassium Chloride [Klor-Con 10] 10 meq PO DAILY Instructions: Chest Pain (DC) Follow up with: CHANDANA DUNNE MD [Primary Care Provider] - 11/24/21 2:30 pm ([facility]) Forms: Discharge Instructions
== END 2021-11-16 10:58 | disposition home or self-care (01) ==
LOC: ED 18:36 → MED SURG 11-15 00:20
PROVIDERS: ADMIT General Practice; ATTEND General Practice
DX: R07.2 Precordial pain (principal); I24.9 Acute ischemic heart disease, unspecified; I48.91 Unspecified atrial fibrillation; R53.1 Weakness; I10 Essential (primary) hypertension; E78.5 Hyperlipidemia, unspecified; I25.2 Old myocardial infarction; J44.9 Chronic obstructive pulmonary disease, unspecified; E11.9 Type 2 diabetes mellitus without complications; C61 Malignant neoplasm of prostate; Z20.828 Contact with and (suspected) exposure to other viral communicable diseases; I48.92 Unspecified atrial flutter; L89.152 Pressure ulcer of sacral region, stage 2; Z79.899 Other long term (current) drug therapy
CPT/HCPCS: 0241U; 36415; 71045; 80053; 82947; 83690; 83880; 84484; 85025; 93005; 93041; 93268; 94760; 96374; 99284; G0378; J0360; J1815; A9270-GY

== ENCOUNTER 2021-11-29 17:33 | Emergency (ER) | payer MEDICARE ==
[2021-11-29] MEDS ORDERED: TYLENOL 325 MG PO ONE (18:11)
[2021-11-29] MEDS ORDERED: Zofran 4 MG/2 ML VIAL IV ONE (18:11)
[2021-11-29] MEDS ORDERED: PROTONIX 40 MG IV IV ONE ×2 (18:11→18:45)
[2021-11-29] MEDS ORDERED: Sodium Chloride 0.9% 1000 ML 1,000 ML IV SCH (18:15)
--- NOTE | 2021-11-29 18:24 | ERPHSYRPT ---
- History of Present Illness Time Seen by Provider: 11/29/21 17:37 Source: patient, family Exam Limitations: clinical condition Patient Subjective Stated Complaint: patient states "I have had chest pain since after lunch and i feel sick in my stomach." Triage Nursing Assessment: patient is laying in bed, states his chest pain is now a 2, alert and oriented though he is very [place]. Physician History: 89 years old male with history of hypertension, hyperlipidemia, diabetes mellitus, GERD presented in the ER with chief complaint of right lower chest pain and upper abdominal pain with associated nausea and dry heaving since this afternoon. Patient reports dull aching chest pain without difficulty breathing. Daughter reports he has decreased oral intake. No fever or chills reported. Patient has recently been admitted to the ER with chest pain with negative work- up. Timing/Duration: today, gradual onset, worse Severity: moderate Modifying Factors: Improves With: nothing Associated Symptoms: nausea, vomiting, abdominal pain, chest pain, loss of appetite, malaise, No shortness of breath Allergies/Adverse Reactions: aspirin Adverse Reaction (Verified 11/14/21 18:44) bleeding Home Medications: Allopurinol 100 mg [Zyloprim 100 mg] 100 mg PO DAILY 08/11/19 [History] Glimepiride 1 mg PO DAILY 08/11/19 [History] Sucralfate 1 gm [Carafate 1 GM] 1 gm PO QID 08/11/19 [History] Tamsulosin HCl 0.4 mg [Flomax 0.4 MG] 0.4 mg PO QHS 08/11/19 [History] Gabapentin 100 mg PO TID 02/28/20 [History] Magnesium Oxide 400 mg [Mag-Ox 400] 400 mg PO DAILY 04/08/20 [History] Pantoprazole Sodium [Protonix] 40 mg PO DAILY 04/08/20 [History] Losartan Potassium [Cozaar] 50 mg PO DAILY 05/27/20 [History] Metoprolol Tartrate 100 mg PO BID 02/13/21 [History] Levothyroxine Sodium 50 Mcg [Synthroid 50 Mcg] 50 mcg PO DAILY 03/26/21 [History] Potassium Chloride [Klor-Con 10] 10 meq PO DAILY 11/15/21 [History] Hx Tetanus, Diphtheria Vaccination/Date Given: No Hx Influenza Vaccination/Date Given: No Hx Pneumococcal Vaccination/Date Given: No Travel Risk - International Travel Have you traveled outside of the country in past 3 weeks: No - Coronavirus Screening Are you exhibiting any of the following symptoms?: No Close contact with a COVID-19 positive Pt in past 14-21 Days: No - Vaccine Status Have you recieved a Covid-19 vaccination: No - Review of Systems Constitutional: Fatigue, Weakness Eyes: No Symptoms Ears, Nose, & Throat: No Symptoms Respiratory: No Symptoms Cardiac: Chest Pain Abdominal/Gastrointestinal: Abdominal Pain, Nausea, Vomiting Genitourinary Symptoms: No Symptoms Musculoskeletal: Arthralgias Skin: No Symptoms Neurological: Headache Hematologic/Lymphatic: No Symptoms Immunological/Allergic: No Symptoms - Past Medical History Pertinent Past Medical History: Yes Neurological History: TIA ENT History: Cataracts Cardiac History: Coronary Artery Disease, High Cholesterol, Hypertension, Myocardial Infarction ([place]) Respiratory History: COPD, Pneumonia Endocrine Medical History: Diabetes Type II, Hypothyroidism Musculoskeletal History: Arthritis GI Medical History: GERD, GI Bleed, Hemorrhoids, Hernia History: No Pertinent History Psycho-Social History: Anxiety Male Reproductive Disorders: Prostate Cancer, Prostate Problems Other Medical History: Gout, 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, HX Prostate CX, [place] - Past Surgical History Past Surgical History: Yes Neuro Surgical History: No Pertinent History Cardiac: No Pertinent History Respiratory: No Pertinent History Gastrointestinal: Hemorrhoidectomy Genitourinary: No Pertinent History Musculoskeletal: Orthopedic Surgery Male Surgical History: No Pertinent History Other Surgical History: LT ARM - Social History Smoking Status: Former smoker How long have you smoked: 25 years Exposure to second hand smoke: No Drug Use: none Patient Lives Alone: No Significant Family History: no pertinent family hx - Nursing Vital Signs Nursing Vital Signs: Initial Vital Signs Temperature 97.8 F 11/29/21 17:40 Pulse Rate 67 11/29/21 17:40 Respiratory Rate 18 11/29/21 17:40 Blood Pressure 153/71 11/29/21 17:40 O2 Sat by Pulse Oximetry 97 11/29/21 17:40 Pain Scale Pain Intensity 0 - Physical Exam General Appearance: no apparent distress, alert Eye Exam: PERRL/EOMI, eyes nml inspection Ears, Nose, Throat Exam: normal ENT inspection, TMs normal, pharynx normal, moist mucous membranes Neck Exam: normal inspection, non-tender, supple, carotid bruit Respiratory Exam: normal breath sounds, lungs clear Cardiovascular Exam: regular rate/rhythm, normal heart sounds Gastrointestinal/Abdomen Exam: soft, normal bowel sounds, No tenderness Back Exam: normal inspection Extremity Exam: normal inspection, normal range of motion, pelvis stable Neurologic Exam: alert, oriented x 3, cooperative, esc[place] closer II-XII nml as tested, sensation nml, No normal mood/affect, No motor deficits Skin Exam: normal color SpO2 Interpretation: normal SpO2: 97 O2 Delivery: Room Air - Course EKG Interpreted by Me: RATE ([id number]), Sinus Rhythm, NORMAL AXIS, NORMAL QRS Ordered Tests: Active Orders 24 hr Category Date Time Status EKG-ER Only STAT Care 11/29/21 18:11 Completed IV Insertion STAT Care 11/29/21 18:11 Completed NPO (ED) STAT Care 11/29/21 18:11 Completed ABDOMEN AND PELVIS W/0 CONTRAS [CT] Stat Exams 11/29/21 18:10 Taken CHEST WITHOUT CONTRAST [CT] Stat Exams 11/29/21 18:11 Taken BNP [NT PRO BNP] Stat Lab 11/29/21 19:08 Completed CBC W DIFF Stat Lab 11/29/21 18:15 Completed CMP Stat Lab 11/29/21 18:15 Completed LIPASE Stat Lab 11/29/21 18:15 Completed MAG [MAGNESIUM] Stat Lab 11/29/21 19:08 Completed TROPONIN Q3H Lab 11/29/21 18:15 Completed TROPONIN Q3H Lab 11/29/21 20:40 Completed UA W/RFX CULTURE Stat Lab 11/29/21 19:49 Completed Medication Summary Discontinued Medications Generic Name Dose Route Start Last Admin Trade Name Johnq PRN Reason Stop Dose Admin Acetaminophen 975 mg 11/29/21 18:11 11/29/21 18:48 Acetaminophen 325 Mg Tablet PO 11/29/21 18:12 975 mg STAT ONE Administration Acetaminophen Confirm 11/29/21 18:45 Acetaminophen 325 Mg Tablet Administered 11/29/21 18:46 Dose 975 mg .ROUTE .STK-MED ONE Sodium Chloride 1,000 mls @ 100 mls/hr 11/29/21 18:15 11/29/21 18:49 Sodium Chloride 0.9% 1000 Ml IV 12/29/21 18:14 100 mls/hr .Q10H DRAKE Administration Sodium Chloride Confirm 11/29/21 18:45 Sodium Chloride 0.9% 1000 Ml Administered 11/29/21 18:46 Dose 1,000 mls @ ud .ROUTE .STK-MED ONE Ondansetron HCl 4 mg 11/29/21 18:11 11/29/21 18:48 Ondansetron Hcl 4 Mg/2 Ml Vial IV 11/29/21 18:12 4 mg STAT ONE Administration Ondansetron HCl Confirm 11/29/21 18:45 Ondansetron Hcl 4 Mg/2 Ml Vial Administered 11/29/21 18:46 Dose 4 mg .ROUTE .STK-MED ONE Pantoprazole Sodium 40 mg 11/29/21 18:11 11/29/21 18:48 Pantoprazole 40 Mg Vial IV 11/29/21 18:12 40 mg STAT ONE Administration Pantoprazole Sodium Confirm 11/29/21 18:45 Pantoprazole 40 Mg Vial Administered 11/29/21 18:46 Dose 40 mg IV .STK-MED ONE Lab/Rad Data: Laboratory Result Diagrams 11/29/21 18:15 11/29/21 18:15 Laboratory Results 11/29/21 11/29/21 11/29/21 Range/Units 20:40 19:49 19:08 WBC (4.0-10.5) K/mm3 RBC (4.1-5.6) M/mm3 Hgb (12.5-18.0) gm/dl Hct (42-50) % MCV (78-100) fl MCH (26-32) pg MCHC (32-36) g/dl RDW (11.5-14.0) % Plt Count (150-450) K/mm3 MPV (7.5-11.0) fl Gran % (36.0-66.0) % Eos # (Auto) (0-0.5) Absolute Lymphs (auto) (1.0-4.6) Absolute Monos (auto) (0.0-1.3) Lymphocytes % (24.0-44.0) % Monocytes % (0.0-12.0) % Eosinophils % (0.00-5.0) % Basophils % (0.0-0.4) % Absolute Granulocytes (1.4-6.9) Basophils # (0-0.4) Sodium (137-145) mmol/L Potassium (3.5-5.1) mmol/L Chloride (98-107) mmol/L Carbon Dioxide (22-30) mmol/L Anion Gap (5-15) MEQ/L BUN (9-20) mg/dL Creatinine (0.66-1.25) mg/dL Estimated GFR ML/MIN Glucose (74-106) mg/dL Calcium (8.4-10.2) mg/dL Magnesium 1.8 (1.6-2.3) mg/dL Total Bilirubin (0.2-1.3) mg/dL AST (17-59) U/L ALT (0-50) U/L Alkaline Phosphatase (38-126) U/L Troponin I < 0.012 (0.000-0.034) ng/mL NT-Pro-B Natriuret Pep 342 (0-1800) pg/mL Serum Total Protein (6.3-8.2) g/dL Albumin (3.5-5.0) g/dL Lipase (23-300) U/L Urinalys Dipstick Clnc MAIN LAB Urine Color YELLOW (YELLOW) Urine Appearance CLEAR (CLEAR) Urine pH 6.5 (5-6) Ur Specific [place] <=1.005 (1.005-1.025) POC Urine Protein Conf NEGATIVE (Negative) Urine Ketones NEGATIVE (NEGATIVE) Urine Nitrite NEGATIVE (NEGATIVE) Urine Bilirubin NEGATIVE (NEGATIVE) Urine Urobilinogen 0.2 (0-1) mg/dL Urine Leukocytes NEGATIVE (NEGATIVE) Urine WBC (Auto) 0-2 (0-5) /HPF Urine RBC (Auto) NONE (0-2) /HPF U Epithel Cells (Auto) RARE (FEW) /HPF Urine Bacteria (Auto) RARE (NEGATIVE) /HPF Urine RBC NEGATIVE (0-5) Srinivasan/ul Ur Culture Indicated? NO Urine Glucose NEGATIVE (NEGATIVE) mg/dL 11/29/21 11/29/21 11/29/21 Range/Units 18:15 18:15 18:15 WBC 4.7 (4.0-10.5) K/mm3 RBC 4.38 (4.1-5.6) M/mm3 Hgb 10.5 L (12.5-18.0) gm/dl Hct 33.8 L (42-50) % MCV 77.2 L (78-100) fl MCH 24.0 L (26-32) pg MCHC 31.1 L (32-36) g/dl RDW 18.7 H (11.5-14.0) % Plt Count 149 L (150-450) K/mm3 MPV 10.7 (7.5-11.0) fl Gran % 46.3 (36.0-66.0) % Eos # (Auto) 0.11 (0-0.5) Absolute Lymphs (auto) 1.49 (1.0-4.6) Absolute Monos (auto) 0.84 (0.0-1.3) Lymphocytes % 31.5 (24.0-44.0) % Monocytes % 17.8 H (0.0-12.0) % Eosinophils % 2.3 (0.00-5.0) % Basophils % 2.1 (0.0-0.4) % Absolute Granulocytes 2.19 (1.4-6.9) Basophils # 0.10 (0-0.4) Sodium 135 L (137-145) mmol/L Potassium 4.0 (3.5-5.1) mmol/L Chloride 102 (98-107) mmol/L Carbon Dioxide 21 L (22-30) mmol/L Anion Gap 16.0 H (5-15) MEQ/L BUN 12 (9-20) mg/dL Creatinine 1.07 (0.66-1.25) mg/dL Estimated GFR > 60.0 ML/MIN Glucose 128 H (74-106) mg/dL Calcium 8.7 (8.4-10.2) mg/dL Magnesium (1.6-2.3) mg/dL Total Bilirubin 0.40 (0.2-1.3) mg/dL AST 17 (17-59) U/L ALT 12 (0-50) U/L Alkaline Phosphatase 117 (38-126) U/L Troponin I < 0.012 (0.000-0.034) ng/mL NT-Pro-B Natriuret Pep (0-1800) pg/mL Serum Total Protein 6.4 (6.3-8.2) g/dL Albumin 3.7 (3.5-5.0) g/dL Lipase 58 (23-300) U/L Urinalys Dipstick Clnc Urine Color (YELLOW) Urine Appearance (CLEAR) Urine pH (5-6) Ur Specific [place] (1.005-1.025) POC Urine Protein Conf (Negative) Urine Ketones (NEGATIVE) Urine Nitrite (NEGATIVE) Urine Bilirubin (NEGATIVE) Urine Urobilinogen (0-1) mg/dL Urine Leukocytes (NEGATIVE) Urine WBC (Auto) (0-5) /HPF Urine RBC (Auto) (0-2) /HPF U Epithel Cells (Auto) (FEW) /HPF Urine Bacteria (Auto) (NEGATIVE) /HPF Urine RBC (0-5) Srinivasan/ul Ur Culture Indicated? Urine Glucose (NEGATIVE) mg/dL - Progress Progress: improved Progress Note: 11/29/21 22:04 89 years old is evaluated for upper abdominal pain with nausea and dry heaving. Given symptomatic treatment along with fluids, on reevaluation feeling better. EKG sinus rhythm without any ST elevation and negative troponins x2. I have obtained CT chest and abdomen pelvis with no acute findings. Symptoms could be related to GERD and is advised to continue with PPI. I have discussed with , patient's PCP who know him very well, reviewed history, work-up, recommended discharge with outpatient follow-up in the morning. Discussed signs symptoms of worsening needing return to ER which patient/daughter who takes care of him seem understanding and is agreeable with taking him back home. Discussed with : Nighat Counseled pt/family regarding: lab results, diagnosis, need for follow-up, rad results - Departure Departure Disposition: Home Clinical Impression: Atypical chest pain Condition: Stable Critical Care Time: No Referrals: CHANDANA DUNNE MD [Primary Care Provider] - Follow up/PCP as directed ( Tomorrow for reevaluation) Instructions: Angina (DC) Additional Instructions: Follow-up with primary care and cardiology for reevaluation. Return to ER if having persistent/worsening chest pain, difficulty breathing, abdominal pain/vomiting etc. Tylenol as needed for pain.
[2021-11-29 18:41] LABS: ALBUMIN 3.7 g/dL (3.5-5.0); ALKALINE PHOSPHATASE 117 U/L (38-126); BLOOD UREA NITROGEN 12 mg/dL (9-20); CHLORIDE 102 mmol/L (98-107); Calcium 8.7 mg/dL (8.4-10.2); Carbon Dioxide 21 mmol/L (22-30); Creatinine 1 1.07 mg/dL (0.66-1.25); EST GLOMERULAR FILTRATION RATE > 60.0 ML/MIN; Glucose 128 mg/dL (74-106); LIPASE 58 U/L (23-300); SGOT/AST 17 U/L (17-59); SGPT/ALT 12 U/L (0-50); SODIUM 135 mmol/L (137-145); Total Protein 6.4 g/dL (6.3-8.2)
[2021-11-29] MEDS ORDERED: Sodium Chloride 0.9% 1000 ML 1,000 ML ONE (18:45)
[2021-11-29] MEDS ORDERED: TYLENOL 325 MG ONE (18:45)
[2021-11-29] MEDS ORDERED: Zofran 4 MG/2 ML VIAL ONE (18:45)
[2021-11-29 19:25] LABS: Absolute Neutrophil Ct (ANC) 2.19 (1.4-6.9); Eosinophil % 2.3 % (0.00-5.0); Eosinophil (Absolute #) 0.11 (0-0.5); Hematocrit 33.8 % (42-50); Hemoglobin 10.5 gm/dl (12.5-18.0); Lymphocyte (Absolute #) 1.49 (1.0-4.6); Lymphocytes % 31.5 % (24.0-44.0); Mean Cell Volume 77.2 fl (78-100); Mean Corpuscular Hgb Concent. 31.1 g/dl (32-36); Mean Platelet Volume 10.7 fl (7.5-11.0); Monocyte (Absolute #) 0.84 (0.0-1.3); Monocytes % 17.8 % (0.0-12.0); Neutrophil % 46.3 % (36.0-66.0); Platelet Count 149 K/mm3 (150-450); Red Blood Count 4.38 M/mm3 (4.1-5.6); Red Cell Distribution Width 18.7 % (11.5-14.0); White Blood Count 4.7 K/mm3 (4.0-10.5)
[2021-11-29 19:33] LABS: MAGNESIUM 1.8 mg/dL (1.6-2.3)
[2021-11-29 20:34] LABS: Bacteria RARE /HPF (NEGATIVE); Epithelial Cells RARE /HPF (FEW); WBC 0-2 /HPF (0-5)
[2021-11-29 20:35] LABS: Appearance CLEAR (CLEAR); Bilirubin NEGATIVE (NEGATIVE); Glucose NEGATIVE (NEGATIVE); Ketones NEGATIVE (NEGATIVE); Nitrite NEGATIVE (NEGATIVE); Ph 6.5 (5-6); Protein,Urine Dip NEGATIVE (Negative); RBC NEGATIVE Ery/ul (0-5); Specific Gravity <=1.005 (1.005-1.025); Urine Cultured Indicated? NO; Urobilinogen 0.2 mg/dL (0-1)
[2021-11-29 20:42] LABS: Dipstick done @ ? MAIN LAB
[2021-11-29 21:04] VITALS: PULSE 52
[2021-11-29 22:05] VITALS: O2SAT 97
[2021-11-29 22:06] VITALS: BP 180/85
--- NOTE | 2021-11-30 08:31 | XRAY ---
Indication: Chest pain. Multiple contiguous axial images obtained through the chest without contrast. Comparison: June 29, 2021. Lungs again hyperinflated with mild bilateral dependent atelectasis and tiny bilateral calcified granulomas. Right middle lobe demonstrates grossly stable 1 cm indeterminate noncalcified nodule. No new pulmonary mass/nodule, infiltrate, consolidation, or effusion. Heart not enlarged. Aorta again mildly etcher sclerotic without aneurysm. Stable small mediastinal and bilateral hilar calcified nodes. No pathologic mediastinal lymphadenopathy. Stable moderate size hiatal hernia with partial intrathoracic stomach. Bony thorax again with osteopenia and flowing osteophytes throughout the spine. CT abdomen/pelvis reported separately. Impression: 1. Stable 1 cm indeterminant right middle lobe noncalcified nodule. Finding possibly granulomatous as there is again old granulomatous disease elsewhere. Recommend follow-up per Fleischner guidelines. 2. Stable hiatal hernia with intrathoracic stomach. 3. Stable osteopenia and flowing osteophytes. 4. No new/acute cardiopulmonary abnormalities on this noncontrast exam.
--- NOTE | 2021-11-30 08:34 | XRAY ---
Indication: Abdomen pain. Multiple contiguous axial images obtained through the abdomen and pelvis without contrast. Comparison: October 17, 2021. CT chest reported separately. Stomach is mildly fluid distended. Noncontrasted stomach and bowel loops are nonobstructed again with normal appendix. Gallbladder partially contracted without gallstones. No free fluid/air. Stable enlarged prostate gland and anteriorly rotated right kidney. Remaining liver, gallbladder, pancreas, spleen, adrenal glands, kidneys, ureters, and bladder are unremarkable for noncontrast exam. Stable mild scattered aortoiliac calcifications without AAA. Osseous structures intact again with osteopenia, mild degenerative changes throughout the spine, and mild bilateral hip degenerative arthropathy. Stable incidental small right sartorius and left rectus femoris intramuscular lipomas. Impression: 1. Stable enlarged prostate gland, arteriosclerotic disease, intramuscular lipomas, and chronic bony findings. 2. Remaining CT abdomen/pelvis without contrast exam is negative.
== END 2021-11-29 22:12 | disposition home or self-care (01) ==
LOC: ED 17:33
DX: R07.89 Other chest pain (principal); R10.10 Upper abdominal pain, unspecified; R11.0 Nausea; E78.5 Hyperlipidemia, unspecified; I10 Essential (primary) hypertension; E11.9 Type 2 diabetes mellitus without complications; J44.9 Chronic obstructive pulmonary disease, unspecified; Z79.84 Long term (current) use of oral hypoglycemic drugs; Z79.899 Other long term (current) drug therapy
CPT/HCPCS: 36000; 36415; 71250; 74176; 80053; 81015; 83690; 83735; 83880; 84484; 85025; 93005; 96374; 96375; 99284; J2405; A9270-GY

== ENCOUNTER 2021-12-31 20:56 | Emergency (ER) | payer MEDICARE ==
--- NOTE | 2021-12-31 22:37 | ERPHSYRPT ---
- History of Present Illness Time Seen by Provider: 12/31/21 22:33 Source: patient, family Exam Limitations: no limitations Patient Subjective Stated Complaint: pt daughter states "he was working out in the woodshed and I found him sweating and passed out on the floor, when i found him i yelled his name and he woke up, he leila his eyes hurt and he has pain all over his body". Triage Nursing Assessment: pt is pale and states he has pain all over his body, he is hard of hearing and states that his eyes hurt and he doesnt know why he passed out.no fever, vitals WNL Physician History: Pt passed out in heat in shed but temp loss of vision which has now resolved. had also CP which resolved. Chest clear . no focal neuro now, abd soft nontender. PERRl fundi benign and visual fileds intact. Timing/Duration: today, worse Associated Symptoms: denies symptoms Allergies/Adverse Reactions: aspirin Adverse Reaction (Verified 11/14/21 18:44) bleeding Home Medications: Allopurinol 100 mg [Zyloprim 100 mg] 100 mg PO DAILY 08/11/19 [History] Glimepiride 1 mg PO DAILY 08/11/19 [History] Sucralfate 1 gm [Carafate 1 GM] 1 gm PO QID 08/11/19 [History] Tamsulosin HCl 0.4 mg [Flomax 0.4 MG] 0.4 mg PO QHS 08/11/19 [History] Gabapentin 100 mg PO TID 02/28/20 [History] Magnesium Oxide 400 mg [Mag-Ox 400] 400 mg PO DAILY 04/08/20 [History] Pantoprazole Sodium [Protonix] 40 mg PO DAILY 04/08/20 [History] Losartan Potassium [Cozaar] 50 mg PO DAILY 05/27/20 [History] Metoprolol Tartrate 100 mg PO BID 02/13/21 [History] Levothyroxine Sodium 50 Mcg [Synthroid 50 Mcg] 50 mcg PO DAILY 03/26/21 [History] Potassium Chloride [Klor-Con 10] 10 meq PO DAILY 11/15/21 [History] Hx Tetanus, Diphtheria Vaccination/Date Given: No Hx Influenza Vaccination/Date Given: No Hx Pneumococcal Vaccination/Date Given: No Immunizations Up to Date: No Travel Risk - International Travel Have you traveled outside of the country in past 3 weeks: No - Coronavirus Screening Are you exhibiting any of the following symptoms?: No Close contact with a COVID-19 positive Pt in past 14-21 Days: No - Vaccine Status Have you recieved a Covid-19 vaccination: No - Review of Systems Constitutional: No Fever, No Chills Eyes: No Symptoms Ears, Nose, & Throat: No Symptoms Respiratory: No Cough, No Dyspnea Cardiac: No Chest Pain, No Edema, No Syncope Abdominal/Gastrointestinal: No Abdominal Pain, No Nausea, No Vomiting, No Diarrhea Genitourinary Symptoms: No Dysuria Musculoskeletal: No Back Pain, No Neck Pain Skin: No Rash Neurological: No Dizziness, No Focal Weakness, No Sensory Changes Psychological: No Symptoms Endocrine: No Symptoms Hematologic/Lymphatic: No Symptoms Immunological/Allergic: No Symptoms All Other Systems: Reviewed and Negative - Past Medical History Pertinent Past Medical History: Yes Neurological History: TIA ENT History: Cataracts Cardiac History: Coronary Artery Disease, High Cholesterol, Hypertension, 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[place]) Respiratory History: COPD, Pneumonia Endocrine Medical History: Diabetes Type II, Hypothyroidism Musculoskeletal History: Arthritis GI Medical History: GERD, GI Bleed, Hemorrhoids, Hernia History: No Pertinent History Psycho-Social History: Anxiety Male Reproductive Disorders: Prostate Cancer, Prostate Problems Other Medical History: Gout, 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, HX Prostate CX, [place] - Past Surgical History Past Surgical History: Yes Neuro Surgical History: No Pertinent History Cardiac: No Pertinent History Respiratory: No Pertinent History Gastrointestinal: Hemorrhoidectomy Genitourinary: No Pertinent History Musculoskeletal: Orthopedic Surgery Male Surgical History: No Pertinent History Other Surgical History: LT ARM - Social History Smoking Status: Former smoker How long have you smoked: 25 years Exposure to second hand smoke: No Drug Use: none Patient Lives Alone: No Significant Family History: no pertinent family hx - Nursing Vital Signs Nursing Vital Signs: Initial Vital Signs Temperature 98.6 F 12/31/21 21:18 Pulse Rate 68 12/31/21 21:18 Respiratory Rate 18 12/31/21 21:18 Blood Pressure 146/65 12/31/21 21:18 O2 Sat by Pulse Oximetry 94 L 12/31/21 21:18 Pain Scale Pain Intensity 0 - Physical Exam General Appearance: no apparent distress, alert Eye Exam: PERRL/EOMI, eyes nml inspection Ears, Nose, Throat Exam: normal ENT inspection, TMs normal, pharynx normal, moist mucous membranes Neck Exam: normal inspection, non-tender, supple, full range of motion Respiratory Exam: normal breath sounds, lungs clear, No respiratory distress Cardiovascular Exam: regular rate/rhythm, normal heart sounds, normal peripheral pulses Gastrointestinal/Abdomen Exam: soft, normal bowel sounds, No tenderness, No mass Rectal Exam: deferred Back Exam: normal inspection, normal range of motion, No CVA tenderness, No vertebral tenderness Extremity Exam: normal inspection, normal range of motion, pelvis stable Neurologic Exam: alert, oriented x 3, cooperative, normal mood/affect, nml cerebellar function, nml station & gait, sensation nml, No motor deficits Skin Exam: normal color, warm, dry, No rash Lymphatic Exam: No adenopathy SpO2: 94 - Course Nursing assessment & vital signs reviewed: Yes EKG Interpreted by Me: Sinus Rhythm, prolonged QT interval, Non-specific ST Changes - CT Exams Head CT Interpretation: Tele-radiologist Report, No/Intracranial Hemorrhag, Other (old lacunar infarcts) Chest CT Interpretation: Tele-radiologist Report, No PE, Other (pulm nodules and nodes) Ordered Tests: Active Orders 24 hr Category Date Time Status EKG-ER Only STAT Care 12/31/21 22:38 Active IV Insertion STAT Care 12/31/21 22:38 Active Tele-Health Consult ROUTINE Cons 12/31/21 22:37 Active CHEST WITH CONTRAST [CT] Stat Exams 12/31/21 23:48 Taken HEAD WITHOUT CONTRAST [CT] Stat Exams 12/31/21 22:37 Taken CBC W DIFF Stat Lab 12/31/21 22:41 Completed CMP Stat Lab 12/31/21 22:41 Completed D-DIMER QUANTITATIVE Stat Lab 12/31/21 22:41 Completed TROPONIN Q3H Lab 12/31/21 22:41 Completed TROPONIN Q3H Lab 01/01/22 01:45 Ordered TROPONIN Q3H Lab 01/01/22 04:45 Ordered TROPONIN Q3H Lab 01/01/22 07:45 Ordered TROPONIN Q3H Lab 01/01/22 10:45 Ordered Medication Summary Discontinued Medications Generic Name Dose Route Start Last Admin Trade Name Freq PRN Reason Stop Dose Admin Sodium Chloride 1,000 mls @ 999 mls/hr 12/31/21 22:38 01/01/22 00:08 Sodium Chloride 0.9% 1000 Ml IV 12/31/21 23:38 Infused .Q1H1M STA Infusion Sodium Chloride Confirm 12/31/21 22:47 Sodium Chloride 0.9% 1000 Ml Administered 12/31/21 22:48 Dose 1,000 mls @ ud .ROUTE .STK-MED ONE Lab/Rad Data: Laboratory Result Diagrams 12/31/21 22:41 12/31/21 22:41 Laboratory Results 12/31/21 12/31/21 12/31/21 Range/Units 22:41 22:41 22:41 WBC (4.0-10.5) x10^3/uL RBC (4.1-5.6) x10^6/uL Hgb (12.5-18.0) g/dL Hct (42-50) % MCV (78-100) fL MCH (26-32) pg MCHC (32-36) g/dL RDW (11.5-14.0) % Plt Count (150-450) x10^3/uL MPV (7.5-11.0) fL Gran % (36.0-66.0) % Immature Gran % (Auto) (0.00-0.4) % Nucleat RBC Rel Count (0.00-0.1) % Eos # (Auto) (0-0.5) x10^3/uL Immature Gran # (Auto) (0.00-0.03) x10^3u/L Absolute Lymphs (auto) (1.0-4.6) x10^3/uL Absolute Monos (auto) (0.0-1.3) x10^3/uL Absolute Nucleated RBC (0.00-0.01) x10^3u/L Lymphocytes % (24.0-44.0) % Monocytes % (0.0-12.0) % Eosinophils % (0.00-5.0) % Basophils % (0.0-0.4) % Absolute Granulocytes (1.4-6.9) x10^3/uL Basophils # (0-0.4) x10^3/uL D-Dimer 2.67 H* (0.0-0.50) ng/mL Sodium 138 (137-145) mmol/L Potassium 4.2 (3.5-5.1) mmol/L Chloride 105 (98-107) mmol/L Carbon Dioxide 21 L (22-30) mmol/L Anion Gap 17.2 H (5-15) MEQ/L BUN 16 (9-20) mg/dL Creatinine 1.20 (0.66-1.25) mg/dL Estimated GFR > 60.0 ML/MIN Glucose 135 H (74-106) mg/dL Calcium 8.9 (8.4-10.2) mg/dL Total Bilirubin 0.70 (0.2-1.3) mg/dL AST 26 (17-59) U/L ALT 15 (0-50) U/L Alkaline Phosphatase 119 (38-126) U/L Troponin I < 0.012 (0.000-0.034) ng/mL Serum Total Protein 6.8 (6.3-8.2) g/dL Albumin 3.8 (3.5-5.0) g/dL 12/31/21 Range/Units 22:41 WBC 5.1 (4.0-10.5) x10^3/uL RBC 4.18 (4.1-5.6) x10^6/uL Hgb 10.2 L (12.5-18.0) g/dL Hct 33.3 L (42-50) % MCV 79.7 (78-100) fL MCH 24.4 L (26-32) pg MCHC 30.6 L (32-36) g/dL RDW 19.0 H (11.5-14.0) % Plt Count 171 (150-450) x10^3/uL MPV 10.8 (7.5-11.0) fL Gran % 55.1 (36.0-66.0) % Immature Gran % (Auto) 0.8 H (0.00-0.4) % Nucleat RBC Rel Count 0.0 (0.00-0.1) % Eos # (Auto) 0.17 (0-0.5) x10^3/uL Immature Gran # (Auto) 0.04 H (0.00-0.03) x10^3u/L Absolute Lymphs (auto) 1.24 (1.0-4.6) x10^3/uL Absolute Monos (auto) 0.83 (0.0-1.3) x10^3/uL Absolute Nucleated RBC 0.00 (0.00-0.01) x10^3u/L Lymphocytes % 24.3 (24.0-44.0) % Monocytes % 16.3 H (0.0-12.0) % Eosinophils % 3.3 (0.00-5.0) % Basophils % 0.2 (0.0-0.4) % Absolute Granulocytes 2.81 (1.4-6.9) x10^3/uL Basophils # 0.01 (0-0.4) x10^3/uL D-Dimer (0.0-0.50) ng/mL Sodium (137-145) mmol/L Potassium (3.5-5.1) mmol/L Chloride (98-107) mmol/L Carbon Dioxide (22-30) mmol/L Anion Gap (5-15) MEQ/L BUN (9-20) mg/dL Creatinine (0.66-1.25) mg/dL Estimated GFR ML/MIN Glucose (74-106) mg/dL Calcium (8.4-10.2) mg/dL Total Bilirubin (0.2-1.3) mg/dL AST (17-59) U/L ALT (0-50) U/L Alkaline Phosphatase (38-126) U/L Troponin I (0.000-0.034) ng/mL Serum Total Protein (6.3-8.2) g/dL Albumin (3.5-5.0) g/dL - Progress Progress: improved, re-examined Progress Note: 01/01/22 00:58 teleneuro concluded most likely just orthostatic syncopal episode which has now resolved without sequelae. 01/01/22 01:40 discussed findings with pt and family and that additional pathology including cardiac, vascular or other could still be evolving undetected. They understand and wish to choose DC with outpt f/u rather than admit/obs or further w/u in ER. they have the capacity to make this choice. Counseled pt/family regarding: lab results, diagnosis, need for follow-up, rad results - Departure Departure Disposition: Home Clinical Impression: resolved syncopal episode non neurologic Condition: Good Critical Care Time: No Referrals: CHANDANA DUNNE MD [Primary Care Provider] - Follow up/PCP as directed Instructions: Heat Exhaustion and Heat Stroke (DC), Syncope (Fainting) (DC) Additional Instructions: we have not determined a precise cause for your spell and therefore follow-up with your DrClaudia for further evaluation is a good idea. also for the lung nodules and nodes . return meantime if any symptoms of concern.
[2021-12-31] MEDS ORDERED: Sodium Chloride 0.9% 1000 ML 1,000 ML IV STA (22:38)
[2021-12-31 22:44] LABS: Absolute Neutrophil Ct (ANC) 2.81 x10^3/uL (1.4-6.9); Basophil (Absolute #) 0.01 x10^3/uL (0-0.4); Eosinophil % 3.3 % (0.00-5.0); Eosinophil (Absolute #) 0.17 x10^3/uL (0-0.5); Hematocrit 33.3 % (42-50); Hemoglobin 10.2 g/dL (12.5-18.0); Lymphocyte (Absolute #) 1.24 x10^3/uL (1.0-4.6); Lymphocytes % 24.3 % (24.0-44.0); Mean Cell Volume 79.7 fL (78-100); Mean Corpuscular Hemoglobin 24.4 pg (26-32); Mean Corpuscular Hgb Concent. 30.6 g/dL (32-36); Mean Platelet Volume 10.8 fL (7.5-11.0); Monocyte (Absolute #) 0.83 x10^3/uL (0.0-1.3); Monocytes % 16.3 % (0.0-12.0); Neutrophil % 55.1 % (36.0-66.0); Platelet Count 171 x10^3/uL (150-450); Red Blood Count 4.18 x10^6/uL (4.1-5.6); White Blood Count 5.1 x10^3/uL (4.0-10.5)
[2021-12-31] MEDS ORDERED: Sodium Chloride 0.9% 1000 ML 1,000 ML ONE (22:47)
[2021-12-31 23:14] LABS: ALBUMIN 3.8 g/dL (3.5-5.0); ALKALINE PHOSPHATASE 119 U/L (38-126); ANION GAP 17.2 MEQ/L (5-15); BLOOD UREA NITROGEN 16 mg/dL (9-20); CHLORIDE 105 mmol/L (98-107); Calcium 8.9 mg/dL (8.4-10.2); Carbon Dioxide 21 mmol/L (22-30); EST GLOMERULAR FILTRATION RATE > 60.0 ML/MIN; Glucose 135 mg/dL (74-106); Potassium 4.2 mmol/L (3.5-5.1); SGOT/AST 26 U/L (17-59); SGPT/ALT 15 U/L (0-50); SODIUM 138 mmol/L (137-145); Total Protein 6.8 g/dL (6.3-8.2)
[2022-01-01 01:16] VITALS: PULSE 65
[2022-01-01 01:59] VITALS: BP 181/80; O2SAT 96
[2022-01-01 02:01] LABS: INFLUENZA A NEGATIVE (NEGATIVE); INFLUENZA B NEGATIVE (NEGATIVE); RESPIRATORY SYNCTIAL VIRUS NEGATIVE (Negative); SARS-CoV-2 Xpert Express NEGATIVE (NEGATIVE)
--- NOTE | 2022-01-01 07:56 | XRAY ---
Indication: Syncope. Status post fall. Multiple contiguous axial images obtained through the head without contrast. Comparison: September 05, 2021. Again age-appropriate global atrophy and mild periventricular degenerative micro-ischemia. No acute intracranial hemorrhage, abnormal extra-axial fluid collection, or mass effect. Fourth ventricle is midline without hydrocephalus. Bony calvarium intact. Visualized paranasal sinuses and mastoid air cells are clear. Impression: Continued nonacute senile brain. Comment: Preliminary interpretation made by [facility]. No critical discrepancy.
--- NOTE | 2022-01-01 08:02 | XRAY ---
Indication: Left shoulder pain and short of breath. Elevated d-dimer. Multiple contiguous axial images obtained through the chest using 80 cc of Isovue-370 contrast and PE protocol. Comparison: March 31, 2022. There is good opacification of the pulmonary arteries to include the lobar and segmental branches. Mild respiration artifact limits evaluation of the more distal lobar and segmental branches. No central pulmonary embolus. Heart is borderline enlarged. Aorta remains mildly outer scrotum without aneurysm/dissection. Stable tiny bilateral hilar calcified nodes. No pathologic mediastinal/hilar lymphadenopathy. Again small hiatal hernia. Lungs are again hyperinflated with mild bilateral dependent atelectasis and tiny bilateral calcified granulomas. Right middle lobe demonstrates stable 1 cm indeterminate noncalcified nodule. Bony thorax intact again with osteopenia and flowing osteophytes throughout the spine. Limited upper abdomen unremarkable. Impression: 1. Respiration artifact limits pulmonary embolus evaluation. No central pulmonary embolus. 2. Stable 1 cm indeterminate right middle lobe noncalcified nodule. Again recommend follow-up per Fleischner guidelines. 3. Again chronic findings including small hiatal hernia, chronic bony findings, and old granulomatous disease. 4. No new/acute findings. Comment: Preliminary interpretation made by [facility]. No critical discrepancy.
== END 2022-01-01 02:01 | disposition home or self-care (01) ==
LOC: ED 20:56
DX: R55 Syncope and collapse (principal); R07.9 Chest pain, unspecified; H53.123 Transient visual loss, bilateral; E78.5 Hyperlipidemia, unspecified; I10 Essential (primary) hypertension; J44.9 Chronic obstructive pulmonary disease, unspecified; E11.9 Type 2 diabetes mellitus without complications; Z79.84 Long term (current) use of oral hypoglycemic drugs; Z79.899 Other long term (current) drug therapy; Z20.828 Contact with and (suspected) exposure to other viral communicable diseases
CPT/HCPCS: 0241U; 36000; 36415; 70450; 71260; 80053; 84484; 85025; 85379; 93005; 96374; 99284

== ENCOUNTER 2022-01-23 12:42 | Observation (INO) | payer MEDICARE ==
--- NOTE | 2022-01-23 12:59 | ERPHSYRPT ---
- History of Present Illness Time Seen by Provider: 01/23/22 12:50 Historian: patient Exam Limitations: no limitations Patient Subjective Stated Complaint: PT states "My stomach hurts and I had bloody diarrhea." Triage Nursing Assessment: Pt presented alert and oriented X 3, skin pwd. pt ambulates with a slow shuffling gait. pt able to sepak in full sentences. Pt abdomen tender in all quadrants Physician History: Patient 81-year-old male presents to our ED with his daughter for evaluation of abdominal pain and bloody stools. Patient states that symptoms started yesterday and progressed into today. Pain described as an ache that is generalized. No focal tenderness. No associated trauma. No fever. No nausea or vomiting. Patient denies a history of the same. Symptoms are mild to moderate in intensity. Palpation of the abdomen reproduces symptoms. Patient voices no other complaints or concerns at this time. Timing/Duration: yesterday Activities at Onset: none Quality: aching Abdominal Pain Onset Location: generalized abdomen Pain Radiation: no radiation Severity of Pain-Max: moderate Severity of Pain-Current: mild Modifying Factors: Improves With: nothing Associated Symptoms: No chest pain (Bloody stools), No nausea, No neck pain, No shortness of breath, No syncope, No vomiting, No other Previous symptoms: no prior history Allergies/Adverse Reactions: aspirin Adverse Reaction (Verified 11/14/21 18:44) bleeding Home Medications: Allopurinol 100 mg [Zyloprim 100 mg] 100 mg PO DAILY 08/11/19 [History] Glimepiride 1 mg PO DAILY 08/11/19 [History] Sucralfate 1 gm [Carafate 1 GM] 1 gm PO QID 08/11/19 [History] Tamsulosin HCl 0.4 mg [Flomax 0.4 MG] 0.4 mg PO QHS 08/11/19 [History] Gabapentin 100 mg PO TID 02/28/20 [History] Magnesium Oxide 400 mg [Mag-Ox 400] 400 mg PO DAILY 04/08/20 [History] Pantoprazole Sodium [Protonix] 40 mg PO DAILY 04/08/20 [History] Losartan Potassium [Cozaar] 50 mg PO DAILY 05/27/20 [History] Metoprolol Tartrate 100 mg PO BID 02/13/21 [History] Levothyroxine Sodium 50 Mcg [Synthroid 50 Mcg] 50 mcg PO DAILY 03/26/21 [History] Potassium Chloride [Klor-Con 10] 10 meq PO DAILY 11/15/21 [History] Hx Tetanus, Diphtheria Vaccination/Date Given: No Hx Influenza Vaccination/Date Given: No Hx Pneumococcal Vaccination/Date Given: No Immunizations Up to Date: Yes Travel Risk - International Travel Have you traveled outside of the country in past 3 weeks: No - Coronavirus Screening Are you exhibiting any of the following symptoms?: No Close contact with a COVID-19 positive Pt in past 14-21 Days: No - Vaccine Status Have you recieved a Covid-19 vaccination: No - Review of Systems Constitutional: No Symptoms, No Fever, No Chills Eyes: No Symptoms Ears, Nose, & Throat: No Symptoms Respiratory: No Symptoms, No Cough, No Dyspnea Cardiac: No Symptoms, No Chest Pain, No Edema, No Syncope Abdominal/Gastrointestinal: No Symptoms, No Abdominal Pain, No Nausea, No Vomiting, No Diarrhea Genitourinary Symptoms: No Symptoms, No Dysuria Musculoskeletal: No Symptoms, No Back Pain, No Neck Pain Skin: No Symptoms, No Rash Neurological: No Symptoms, No Dizziness, No Focal Weakness, No Sensory Changes Psychological: No Symptoms Endocrine: No Symptoms Hematologic/Lymphatic: No Symptoms Immunological/Allergic: No Symptoms All Other Systems: Reviewed and Negative - Past Medical History Pertinent Past Medical History: Yes Neurological History: TIA ENT History: Cataracts Cardiac History: Coronary Artery Disease, High Cholesterol, Hypertension, Myocardial Infarction (OK) Respiratory History: COPD, Pneumonia Endocrine Medical History: Diabetes Type II, Hypothyroidism Musculoskeletal History: Arthritis GI Medical History: GERD, GI Bleed, Hemorrhoids, Hernia History: No Pertinent History Psycho-Social History: Anxiety Male Reproductive Disorders: Prostate Cancer, Prostate Problems Other Medical History: Gout, 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, HX Prostate CX, [place] - Past Surgical History Past Surgical History: Yes Neuro Surgical History: No Pertinent History Cardiac: No Pertinent History Respiratory: No Pertinent History Gastrointestinal: Hemorrhoidectomy Genitourinary: No Pertinent History Musculoskeletal: Orthopedic Surgery Male Surgical History: No Pertinent History Other Surgical History: LT ARM - Social History Smoking Status: Former smoker How long have you smoked: 25 years Exposure to second hand smoke: No Drug Use: none Patient Lives Alone: No Significant Family History: no pertinent family hx - Nursing Vital Signs Nursing Vital Signs: Initial Vital Signs Temperature 97.3 F 01/23/22 12:46 Pulse Rate 60 01/23/22 12:46 Respiratory Rate 20 01/23/22 12:46 Blood Pressure 145/76 01/23/22 12:46 O2 Sat by Pulse Oximetry 98 01/23/22 12:46 Pain Scale Pain Intensity 0 - Physical Exam General Appearance: no apparent distress, alert, other (Patient appears somewhat pale) Eye Exam: PERRL/EOMI, eyes nml inspection Ears, Nose, Throat Exam: normal ENT inspection, TMs normal, pharynx normal, moist mucous membranes Neck Exam: normal inspection, non-tender, supple, full range of motion Respiratory Exam: normal breath sounds, lungs clear, airway intact, No respiratory distress Cardiovascular Exam: regular rate/rhythm, normal heart sounds, normal peripheral pulses Gastrointestinal/Abdomen Exam: soft, normal bowel sounds, tenderness, other (Generalized abdominal pain), No mass, No guarding Back Exam: normal inspection, normal range of motion, No CVA tenderness, No vertebral tenderness Extremity Exam: normal inspection, normal range of motion, pelvis stable Neurologic Exam: alert, oriented x 3, cooperative, sensation nml, No motor deficits Skin Exam: normal color, warm, dry Lymphatic Exam: No adenopathy SpO2 Interpretation: normal SpO2: 98 O2 Delivery: Room Air - Course Nursing assessment & vital signs reviewed: Yes - CT Exams Abdomen/Pelvis CT Interpretation: Tele-radiologist Report (Distended urinary bladder possibly due to bladder outlet obstruction, enlarged prostate, hiatal hernia lipoma chronic bony findings) Ordered Tests: Active Orders 24 hr Category Date Time Status IV Insertion STAT Care 01/23/22 12:56 Active ABDOMEN AND PELVIS W/0 CONTRAS [CT] Stat Exams 01/23/22 12:57 Completed CBC W DIFF Stat Lab 01/23/22 13:10 Completed CMP Stat Lab 01/23/22 13:10 Completed CULTURE,URINE Stat Lab 01/23/22 16:11 Ordered LIPASE Stat Lab 01/23/22 13:10 Completed TROPONIN Q3H Lab 01/23/22 13:10 Completed TROPONIN Q3H Lab 01/23/22 16:20 Completed TROPONIN Q3H Lab 01/23/22 19:00 Ordered TROPONIN Q3H Lab 01/23/22 22:00 Ordered TROPONIN Q3H Lab 01/24/22 01:00 Ordered UA W/RFX CULTURE Stat Lab 01/23/22 16:03 Completed Medication Summary Generic Name Dose Route Start Last Admin Trade Name Jeri PRN Reason Stop Dose Admin Sodium Chloride 1,000 mls @ 100 mls/hr 01/23/22 13:00 01/23/22 13:37 Sodium Chloride 0.9% 1000 Ml IV 02/22/22 12:59 100 mls/hr .Q10H DRAKE Administration Lab/Rad Data: Laboratory Result Diagrams 01/23/22 13:10 01/23/22 13:10 Laboratory Results 01/23/22 01/23/22 01/23/22 Range/Units 16:30 16:20 16:03 WBC (4.0-10.5) x10^3/uL RBC (4.1-5.6) x10^6/uL Hgb (12.5-18.0) g/dL Hct (42-50) % MCV (78-100) fL MCH (26-32) pg MCHC (32-36) g/dL RDW (11.5-14.0) % Plt Count (150-450) x10^3/uL MPV (7.5-11.0) fL Gran % (36.0-66.0) % Immature Gran % (Auto) (0.00-0.4) % Nucleat RBC Rel Count (0.00-0.1) % Eos # (Auto) (0-0.5) x10^3/uL Immature Gran # (Auto) (0.00-0.03) x10^3u/L Absolute Lymphs (auto) (1.0-4.6) x10^3/uL Absolute Monos (auto) (0.0-1.3) x10^3/uL Absolute Nucleated RBC (0.00-0.01) x10^3u/L Lymphocytes % (24.0-44.0) % Monocytes % (0.0-12.0) % Eosinophils % (0.00-5.0) % Basophils % (0.0-0.4) % Absolute Granulocytes (1.4-6.9) x10^3/uL Basophils # (0-0.4) x10^3/uL Sodium (137-145) mmol/L Potassium (3.5-5.1) mmol/L Chloride (98-107) mmol/L Carbon Dioxide (22-30) mmol/L Anion Gap (5-15) MEQ/L BUN (9-20) mg/dL Creatinine (0.66-1.25) mg/dL Estimated GFR ML/MIN Glucose (74-106) mg/dL Calcium (8.4-10.2) mg/dL Total Bilirubin (0.2-1.3) mg/dL AST (17-59) U/L ALT (0-50) U/L Alkaline Phosphatase (38-126) U/L Troponin I < 0.012 (0.000-0.034) ng/mL Serum Total Protein (6.3-8.2) g/dL Albumin (3.5-5.0) g/dL Lipase (23-300) U/L Urinalys Dipstick Clnc MAIN LAB Urine Color YELLOW (YELLOW) Urine Appearance CLEAR (CLEAR) Urine pH 6.0 (5-6) Ur Specific [place] <=1.005 (1.005-1.025) POC Urine Protein Conf NEGATIVE (Negative) Urine Ketones NEGATIVE (NEGATIVE) Urine Nitrite NEGATIVE (NEGATIVE) Urine Bilirubin NEGATIVE (NEGATIVE) Urine Urobilinogen 0.2 (0-1) mg/dL Urine Leukocytes NEGATIVE (NEGATIVE) Urine WBC (Auto) NONE (0-5) /HPF Urine RBC (Auto) NONE (0-2) /HPF U Epithel Cells (Auto) NONE (FEW) /HPF Urine Bacteria (Auto) NONE (NEGATIVE) /HPF Urine RBC TRACE-INTACT (0-5) Srinivasan/ul Ur Culture Indicated? NO Urine Glucose NEGATIVE (NEGATIVE) mg/dL Influenza Type A Ag NEGATIVE (NEGATIVE) Influenza Type B Ag NEGATIVE (NEGATIVE) RSV (PCR) NEGATIVE (Negative) SARS-CoV-2 (PCR) NEGATIVE (NEGATIVE) 01/23/22 01/23/22 01/23/22 Range/Units 13:10 13:10 13:10 WBC 6.8 (4.0-10.5) x10^3/uL RBC 4.26 (4.1-5.6) x10^6/uL Hgb 10.0 L (12.5-18.0) g/dL Hct 33.7 L (42-50) % MCV 79.1 (78-100) fL MCH 23.5 L (26-32) pg MCHC 29.7 L (32-36) g/dL RDW 18.6 H (11.5-14.0) % Plt Count 113 L (150-450) x10^3/uL MPV 10.4 (7.5-11.0) fL Gran % 56.0 (36.0-66.0) % Immature Gran % (Auto) 0.7 H (0.00-0.4) % Nucleat RBC Rel Count 0.0 (0.00-0.1) % Eos # (Auto) 0.16 (0-0.5) x10^3/uL Immature Gran # (Auto) 0.05 H (0.00-0.03) x10^3u/L Absolute Lymphs (auto) 1.57 (1.0-4.6) x10^3/uL Absolute Monos (auto) 1.18 (0.0-1.3) x10^3/uL Absolute Nucleated RBC 0.00 (0.00-0.01) x10^3u/L Lymphocytes % 23.2 L (24.0-44.0) % Monocytes % 17.4 H (0.0-12.0) % Eosinophils % 2.4 (0.00-5.0) % Basophils % 0.3 (0.0-0.4) % Absolute Granulocytes 3.79 (1.4-6.9) x10^3/uL Basophils # 0.02 (0-0.4) x10^3/uL Sodium 132 L (137-145) mmol/L Potassium 3.6 (3.5-5.1) mmol/L Chloride 101 (98-107) mmol/L Carbon Dioxide 24 (22-30) mmol/L Anion Gap 11.1 (5-15) MEQ/L BUN 15 (9-20) mg/dL Creatinine 0.96 (0.66-1.25) mg/dL Estimated GFR > 60.0 ML/MIN Glucose 131 H (74-106) mg/dL Calcium 8.1 L (8.4-10.2) mg/dL Total Bilirubin 0.50 (0.2-1.3) mg/dL AST 22 (17-59) U/L ALT 14 (0-50) U/L Alkaline Phosphatase 128 H (38-126) U/L Troponin I < 0.012 (0.000-0.034) ng/mL Serum Total Protein 6.9 (6.3-8.2) g/dL Albumin 3.7 (3.5-5.0) g/dL Lipase 67 (23-300) U/L Urinalys Dipstick Clnc Urine Color (YELLOW) Urine Appearance (CLEAR) Urine pH (5-6) Ur Specific [place] (1.005-1.025) POC Urine Protein Conf (Negative) Urine Ketones (NEGATIVE) Urine Nitrite (NEGATIVE) Urine Bilirubin (NEGATIVE) Urine Urobilinogen (0-1) mg/dL Urine Leukocytes (NEGATIVE) Urine WBC (Auto) (0-5) /HPF Urine RBC (Auto) (0-2) /HPF U Epithel Cells (Auto) (FEW) /HPF Urine Bacteria (Auto) (NEGATIVE) /HPF Urine RBC (0-5) Sriinvasan/ul Ur Culture Indicated? Urine Glucose (NEGATIVE) mg/dL Influenza Type A Ag (NEGATIVE) Influenza Type B Ag (NEGATIVE) RSV (PCR) (Negative) SARS-CoV-2 (PCR) (NEGATIVE) - Progress Progress: improved Progress Note: Case discussed with Dr. Dunne who excepts admission to observation. Patient will be admitted for bright red blood per rectum and abdominal pain. Plan of care discussed with patient. He agrees to admission [facility] for further evaluation and treatment. Portions of this note were created with voice recognition technology. There may be grammatical, spelling, punctuation or sound alike errors 01/23/22 18:22 Protonix IV daily to be initiated today. COVID test negative 01/23/22 18:27 Counseled pt/family regarding: lab results, diagnosis, rad results - Departure Departure Disposition: Home Clinical Impression: Normocytic anemia, Hyponatremia, Hypocalcemia, Bright red blood per rectum, Urinary retention, Enlarged prostate, Hiatal hernia, Aortoiliac calcifications, Osteopenia, Degenerative arthritis, Lipoma Condition: Stable Critical Care Time: No Referrals: CHANDANA DUNNE MD [Primary Care Provider] - Follow up/PCP as directed
[2022-01-23 13:22] LABS: Absolute Neutrophil Ct (ANC) 3.79 x10^3/uL (1.4-6.9); Basophil (Absolute #) 0.02 x10^3/uL (0-0.4); Eosinophil % 2.4 % (0.00-5.0); Eosinophil (Absolute #) 0.16 x10^3/uL (0-0.5); Hematocrit 33.7 % (42-50); Lymphocyte (Absolute #) 1.57 x10^3/uL (1.0-4.6); Lymphocytes % 23.2 % (24.0-44.0); Mean Cell Volume 79.1 fL (78-100); Mean Corpuscular Hemoglobin 23.5 pg (26-32); Mean Corpuscular Hgb Concent. 29.7 g/dL (32-36); Mean Platelet Volume 10.4 fL (7.5-11.0); Monocyte (Absolute #) 1.18 x10^3/uL (0.0-1.3); Monocytes % 17.4 % (0.0-12.0); Platelet Count 113 x10^3/uL (150-450); Red Blood Count 4.26 x10^6/uL (4.1-5.6); Red Cell Distribution Width 18.6 % (11.5-14.0); White Blood Count 6.8 x10^3/uL (4.0-10.5)
--- NOTE | 2022-01-23 13:36 | XRAY ---
Indication: Abdomen pain, bloating, and blood in stools. Multiple contiguous axial images obtained through the abdomen and pelvis without contrast. Comparison: November 29, 2021 Lung bases demonstrates bibasilar subsegmental atelectasis/scarring. Heart is not enlarged. Enlarging moderate-sized hiatal hernia with partial intrathoracic stomach. Noncontrasted stomach and bowel loops nonobstructed. Gallbladder again partially contracted without gallstones. Urinary bladder is now moderately distended concerning for outlet obstruction versus neurogenic bladder. Again enlarged prostate gland and anterior rotated right kidney. No free fluid/air. Remaining liver, gallbladder, pancreas, spleen, adrenal glands, kidneys, ureters, and bladder are unremarkable for noncontrast exam. Stable moderate scattered aortoiliac calcifications without AAA. Osseous structures intact again with osteopenia, mild degenerative changes throughout the spine, and mild bilateral hip degenerative arthropathy. Stable incidental small right cetrorelix and left rectus for Jose intramuscular lipomas. Impression: 1. New moderately distended urinary bladder. Rule out outlet obstruction versus neurogenic bladder. 2. Enlarging moderate-sized hiatal hernia with partial intrathoracic stomach. 3. Again chronic findings including enlarged prostate gland, arteriosclerotic disease, intramuscular lipomas, and chronic bony findings.
[2022-01-23] MEDS: Sodium Chloride 0.9% 1000 ML 1,000 ML IV SCH (13:37)
[2022-01-23 13:57] LABS: ALBUMIN 3.7 g/dL (3.5-5.0); ALKALINE PHOSPHATASE 128 U/L (38-126); ANION GAP 11.1 MEQ/L (5-15); BLOOD UREA NITROGEN 15 mg/dL (9-20); CHLORIDE 101 mmol/L (98-107); Calcium 8.1 mg/dL (8.4-10.2); Carbon Dioxide 24 mmol/L (22-30); Creatinine 1 0.96 mg/dL (0.66-1.25); EST GLOMERULAR FILTRATION RATE > 60.0 ML/MIN; Glucose 131 mg/dL (74-106); LIPASE 67 U/L (23-300); Potassium 3.6 mmol/L (3.5-5.1); SGOT/AST 22 U/L (17-59); SGPT/ALT 14 U/L (0-50); SODIUM 132 mmol/L (137-145); Total Protein 6.9 g/dL (6.3-8.2)
[2022-01-23 16:18] LABS: Appearance CLEAR (CLEAR); Bilirubin NEGATIVE (NEGATIVE); Dipstick done @ ? MAIN LAB; Glucose NEGATIVE (NEGATIVE); Ketones NEGATIVE (NEGATIVE); Nitrite NEGATIVE (NEGATIVE); Protein,Urine Dip NEGATIVE (Negative); RBC TRACE-INTACT Ery/ul (0-5); Specific Gravity <=1.005 (1.005-1.025); Urobilinogen 0.2 mg/dL (0-1)
[2022-01-23 16:20] LABS: Urine Cultured Indicated? NO
[2022-01-23 17:13] LABS: INFLUENZA A NEGATIVE (NEGATIVE); INFLUENZA B NEGATIVE (NEGATIVE); RESPIRATORY SYNCTIAL VIRUS NEGATIVE (Negative); SARS-CoV-2 Xpert Express NEGATIVE (NEGATIVE)
[2022-01-23] MEDS: Flomax 0.4 MG PO SCH (21:11)
[2022-01-23] MEDS: Carafate 1 GM PO SCH (21:11)
[2022-01-23] MEDS: clonazePAM PO SCH (21:11)
[2022-01-23] MEDS: Neurontin PO SCH (21:12)
[2022-01-23] MEDS: Lopressor 50 MG PO SCH (21:12)
[2022-01-24] MEDS ORDERED: PROTONIX 40 MG IV IV SCH (00:15)
[2022-01-24] MEDS: Sodium Chloride 0.9% 1000 ML 1,000 ML IV SCH ×2 (00:20→10:23)
[2022-01-24] MEDS: SYNTHROID 50 MCG PO SCH (06:25)
[2022-01-24] MEDS: Carafate 1 GM PO SCH ×4 (06:25→21:07)
[2022-01-24] MEDS: Amaryl 2 MG PO SCH (09:08)
[2022-01-24] MEDS ORDERED: Protonix 20MG Tablet PO SCH (10:00)
[2022-01-24] MEDS: clonazePAM PO SCH ×2 (10:20→21:07)
[2022-01-24] MEDS: ZYLOPRIM 100 MG PO SCH (10:21)
[2022-01-24] MEDS: Cozaar 50 MG PO SCH (10:21)
[2022-01-24] MEDS: Lopressor 50 MG PO SCH ×2 (10:21→21:07)
[2022-01-24] MEDS: LASIX 20 MG PO SCH (10:21)
[2022-01-24] MEDS: Neurontin PO SCH ×3 (10:21→21:07)
[2022-01-24] MEDS: MAG-OX 400 PO SCH (10:21)
[2022-01-24] MEDS: BENADRYL 25 MG CAPSULE PO SCH ×2 (10:22→21:07)
[2022-01-24] MEDS: PROTONIX 40 MG IV IV SCH (10:22)
[2022-01-24] MEDS: Klor Con PO SCH (10:22)
[2022-01-24 11:03] LABS: Hematocrit 32.3 % (42-50); Hemoglobin 9.7 g/dL (12.5-18.0); Mean Cell Volume 78.6 fL (78-100); Mean Corpuscular Hemoglobin 23.6 pg (26-32); Mean Platelet Volume 10.2 fL (7.5-11.0); Platelet Count 102 x10^3/uL (150-450); Red Blood Count 4.11 x10^6/uL (4.1-5.6); Red Cell Distribution Width 18.6 % (11.5-14.0); White Blood Count 5.1 x10^3/uL (4.0-10.5)
[2022-01-24 11:10] LABS: ANION GAP 9.6 MEQ/L (5-15); BLOOD UREA NITROGEN 11 mg/dL (9-20); CHLORIDE 107 mmol/L (98-107); Carbon Dioxide 24 mmol/L (22-30); Creatinine 1 0.93 mg/dL (0.66-1.25); EST GLOMERULAR FILTRATION RATE > 60.0 ML/MIN; Glucose 147 mg/dL (74-106); SODIUM 137 mmol/L (137-145)
[2022-01-24] MEDS ORDERED: Cozaar 50 MG PO ONE (16:30)
--- NOTE | 2022-01-24 18:56 | PCM.HP ---
History of Present Illness - Chief Complaint Chief Complaint: GI BLEED, ABD PAIN, URINARY RETENTION for 1 day History of Present Illness: is a 89 year old male.for evaluation of abdominal pain and bloody stools. Patient states that symptoms started yesterday and progressed into today. Pain described as an ache that is generalized. No focal tenderness. No associated trauma. No fever. No nausea or vomiting. Patient denies a history of the same. Symptoms are mild to moderate in intensity. Palpation of the abdomen reproduces symptoms. Patient voices no other complaints or concerns at this time. Timing/Duration: yesterday Activities at Onset: none Quality: aching Abdominal Pain Onset Location: generalized abdomen Pain Radiation: no radiation Severity of Pain-Max: moderate Severity of Pain-Current: mild Modifying Factors: Improves With: nothing Associated Symptoms: No chest pain (Bloody stools), No nausea, No neck pain, No shortness of breath, No syncope, No vomiting, No other Previous symptoms: no prior history - Review of Systems Constitutional: No Fever, No Chills Eyes: No Symptoms Ears, Nose, & Throat: No Symptoms Respiratory: No Cough, No Short Of Breath Cardiac: No Chest Pain, No Edema, No Syncope Abdominal/Gastrointestinal: Hematochezia, No Abdominal Pain, No Nausea, No Vomiting, No Diarrhea Genitourinary Symptoms: Urinary Retention Musculoskeletal: No Back Pain, No Neck Pain Skin: No Rash Neurological: No Dizziness, No Focal Weakness, No Sensory Changes Psychological: No Symptoms Endocrine: No Symptoms Hematologic/Lymphatic: No Symptoms Immunological/Allergic: No Symptoms Medications & Allergies Home Medications: Home Medication List Allopurinol 100 mg [Zyloprim 100 mg] 100 mg PO DAILY 08/11/19 [History Confirmed 01/23/22] Glimepiride 1 mg PO DAILY 08/11/19 [History Confirmed 01/23/22] Sucralfate 1 gm [Carafate 1 GM] 1 gm PO QID 08/11/19 [History Confirmed 01/23/22] Tamsulosin HCl 0.4 mg [Flomax 0.4 MG] 0.4 mg PO QHS 08/11/19 [History Confirmed 01/23/22] Gabapentin 100 mg PO TID 02/28/20 [History Confirmed 01/23/22] Magnesium Oxide 400 mg [Mag-Ox 400] 400 mg PO DAILY 04/08/20 [History Confirmed 01/23/22] Pantoprazole Sodium [Protonix] 40 mg PO DAILY 04/08/20 [History Confirmed 01/23/22] Losartan Potassium [Cozaar] 50 mg PO DAILY 05/27/20 [History Confirmed 01/23/22] Metoprolol Tartrate 100 mg PO BID 02/13/21 [History Confirmed 01/23/22] Levothyroxine Sodium 50 Mcg [Synthroid 50 Mcg] 50 mcg PO DAILY 03/26/21 [History Confirmed 01/23/22] Furosemide 20 mg [Lasix 20 mg] 20 mg PO QAM #30 tablet 05/08/21 [Rx Confirmed 01/23/22] Potassium Chloride [Klor-Con 10] 10 meq PO DAILY 11/15/21 [History Confirmed 01/23/22] Diphenhydramine HCl 25 mg [Benadryl 25 mg Capsule] 25 mg PO BID 01/23/22 [History Confirmed 01/23/22] clonazePAM [Clonazepam] 0.5 mg PO BID 01/23/22 [History Confirmed 01/23/22] Allergies/Adverse Reactions: Allergies Allergy/AdvReac Type Severity Reaction Status Date / Time aspirin AdvReac Verified 01/23/22 18:54 - Past Medical History Past Medical History: Yes Neurological History: TIA ENT History: Cataracts Cardiac History: Coronary Artery Disease, High Cholesterol, Hypertension, Myocardial Infarction ([place]) Respiratory History: COPD, Pneumonia Endocrine Medical History: Diabetes Type II, Hypothyroidism Musculoskelatal History: Arthritis GI Medical History: GERD, GI Bleed, Hemorrhoids, Hernia History: No Pertinent History Pyscho-Social History: Anxiety Male Reproductive Disorders: Prostate Cancer, Prostate Problems Comment: Gout, 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, HX Prostate CX, [place] - Past Surgical History Past Surgical History: Yes Neuro Surgical History: No Pertinent History Cardiac History: No Pertinent History Respiratory Surgery: No Pertinent History GI Surgical History: Hemorrhoidectomy Genitourinary Surgical Hx: No Pertinent History Musculskeletal Surgical Hx: Orthopedic Surgery Male Surgical History: No Pertinent History Other Surgical History: LT ARM - Social History Smoking Status: Former smoker How long have you smoked: 25 years Exposure to second hand smoke: No Alcohol: None Drug Use: none Significant Family History: no pertinent family hx - Physical Exam Vital Signs: Vital Signs - 24 hr Temp Pulse Resp BP Pulse Ox 01/24/22 16:00 97.3 F 62 16 193/77 98 01/24/22 12:00 97.3 F 59 L 17 190/77 96 01/24/22 07:37 97.1 F 60 19 186/77 97 01/24/22 03:58 97.3 F 60 16 130/60 97 01/23/22 23:32 97.3 F 60 18 128/63 99 01/23/22 20:08 97.9 F 66 20 184/79 100 General Appearance: no apparent distress, alert Neurologic Exam: alert, oriented x 3, cooperative, normal mood/affect, nml cerebellar function, nml station & gait, sensation nml, No motor deficits Eye Exam: PERRL/EOMI, eyes nml inspection Ears, Nose, Throat Exam: normal ENT inspection, TMs normal, pharynx normal, moist mucous membranes Neck Exam: normal inspection, non-tender, supple, full range of motion Respiratory Exam: normal breath sounds, lungs clear, No respiratory distress Cardiovascular Exam: regular rate/rhythm, normal heart sounds, normal peripheral pulses Gastrointestinal/Abdomen Exam: soft, normal bowel sounds, No tenderness, No mass Back Exam: normal inspection, normal range of motion, No CVA tenderness, No vertebral tenderness Extremity Exam: normal inspection, normal range of motion, pelvis stable Skin Exam: normal color, warm, dry, No rash Lymphatic Exam: No adenopathy Results - Labs Lab/Micro Results: Lab Results-Last 24 Hours 01/23/22 01/23/22 01/24/22 Range/Units 19:00 21:10 07:08 WBC (4.0-10.5) x10^3/uL RBC (4.1-5.6) x10^6/uL Hgb (12.5-18.0) g/dL Hct (42-50) % MCV (78-100) fL MCH (26-32) pg MCHC (32-36) g/dL RDW (11.5-14.0) % Plt Count (150-450) x10^3/uL MPV (7.5-11.0) fL Sodium (137-145) mmol/L Potassium (3.5-5.1) mmol/L Chloride (98-107) mmol/L Carbon Dioxide (22-30) mmol/L Anion Gap (5-15) MEQ/L BUN (9-20) mg/dL Creatinine (0.66-1.25) mg/dL Estimated GFR ML/MIN Glucose (74-106) mg/dL POC Glucometer 121 H 118 H (74 to 106) mg/dL Calcium (8.4-10.2) mg/dL Troponin I < 0.012 (0.000-0.034) ng/mL 01/24/22 01/24/22 01/24/22 Range/Units 10:50 10:50 11:53 WBC 5.1 (4.0-10.5) x10^3/uL RBC 4.11 (4.1-5.6) x10^6/uL Hgb 9.7 L (12.5-18.0) g/dL Hct 32.3 L (42-50) % MCV 78.6 (78-100) fL MCH 23.6 L (26-32) pg MCHC 30.0 L (32-36) g/dL RDW 18.6 H (11.5-14.0) % Plt Count 102 L (150-450) x10^3/uL MPV 10.2 (7.5-11.0) fL Sodium 137 (137-145) mmol/L Potassium 4.0 (3.5-5.1) mmol/L Chloride 107 (98-107) mmol/L Carbon Dioxide 24 (22-30) mmol/L Anion Gap 9.6 (5-15) MEQ/L BUN 11 (9-20) mg/dL Creatinine 0.93 (0.66-1.25) mg/dL Estimated GFR > 60.0 ML/MIN Glucose 147 H (74-106) mg/dL POC Glucometer 130 H (74 to 106) mg/dL Calcium 8.0 L (8.4-10.2) mg/dL Troponin I (0.000-0.034) ng/mL 01/24/22 Range/Units 16:00 WBC (4.0-10.5) x10^3/uL RBC (4.1-5.6) x10^6/uL Hgb (12.5-18.0) g/dL Hct (42-50) % MCV (78-100) fL MCH (26-32) pg MCHC (32-36) g/dL RDW (11.5-14.0) % Plt Count (150-450) x10^3/uL MPV (7.5-11.0) fL Sodium (137-145) mmol/L Potassium (3.5-5.1) mmol/L Chloride (98-107) mmol/L Carbon Dioxide (22-30) mmol/L Anion Gap (5-15) MEQ/L BUN (9-20) mg/dL Creatinine (0.66-1.25) mg/dL Estimated GFR ML/MIN Glucose (74-106) mg/dL POC Glucometer 155 H (74 to 106) mg/dL Calcium (8.4-10.2) mg/dL Troponin I (0.000-0.034) ng/mL Microbiology 01/23/22 16:35 Urine Culture - Preliminary Catherized NO GROWTH TO DATE Accuchecks Date 01/24/22 Date 01/24/22 Time 16:08 Time 07:05 - Radiology Impressions Radiology Exams & Impressions: Radiology Procedures Category Date Time Status ABDOMEN AND PELVIS W/0 CONTRAS [CT] Stat Exams 01/23/22 12:57 Completed Assessment/Plan (1) Bright red blood per rectum Current Visit: Yes Status: Acute Assessment & Plan: Chief Complaint Diagnosis GI BLEED, ABD PAIN, URINARY RETENTION Allergies Allergy/AdvReac Type Severity Reaction Status Date / Time aspirin AdvReac Verified 01/23/22 18:54 Vital Signs (Last 24 hours) Temp Pulse Resp BP Pulse Ox 01/24/22 16:00 97.3 F 62 16 193/77 98 01/24/22 12:00 97.3 F 59 L 17 190/77 96 01/24/22 07:37 97.1 F 60 19 186/77 97 01/24/22 03:58 97.3 F 60 16 130/60 97 01/23/22 23:32 97.3 F 60 18 128/63 99 01/23/22 20:08 97.9 F 66 20 184/79 100 Home Medications Medication Instructions Recorded Confirmed Last Taken Type Diphenhydramine HCl 25 mg 25 mg PO BID 01/23/22 01/23/22 01/23/22 History [Benadryl 25 mg Capsule] clonazePAM [Clonazepam] 0.5 mg PO BID 01/23/22 01/23/22 01/23/22 History Current Medications Generic Name Dose Route Start Last Admin Trade Name Jeri PRN Reason Stop Dose Admin Allopurinol 100 mg 01/24/22 10:00 01/24/22 10:21 Allopurinol 100 Mg Tablet PO 02/23/22 09:59 100 mg DAILY DRAKE Administration Clonazepam 0.5 mg 01/23/22 22:00 01/24/22 10:20 Clonazepam 0.5 Mg Tablet PO 02/22/22 21:59 0.5 mg BID DRAKE Administration Diphenhydramine HCl 25 mg 01/24/22 10:00 01/24/22 10:22 Diphenhydramine Hcl 25 Mg Capsule PO 02/23/22 09:59 25 mg BID DRAKE Administration Furosemide 20 mg 01/24/22 10:00 01/24/22 10:21 Furosemide 20 Mg Tablet PO 02/23/22 09:59 20 mg DAILY DRAKE Administration Gabapentin 100 mg 01/23/22 22:00 01/24/22 14:36 Gabapentin 100 Mg Capsule PO 02/22/22 21:59 100 mg TID DRAKE Administration Glimepiride 1 mg 01/24/22 08:00 01/24/22 09:08 Glimepiride 2 Mg Tablet PO 02/23/22 07:59 1 mg BREAKFAST DRAKE Administration Sodium Chloride 1,000 mls @ 30 mls/hr 01/23/22 13:00 01/24/22 10:23 Sodium Chloride 0.9% 1000 Ml IV 02/22/22 12:59 100 mls/hr .Q24H DRAKE Administration Levothyroxine Sodium 50 mcg 01/24/22 07:00 01/24/22 06:25 Levothyroxine Sodium 50 Mcg Tablet PO 02/23/22 06:59 50 mcg DAILY@0700 DRAKE Administration Losartan Potassium 50 mg 01/24/22 10:00 01/24/22 10:21 Losartan Potassium 50 Mg Tablet PO 02/23/22 09:59 50 mg DAILY DRAKE Administration Magnesium Oxide 400 mg 01/24/22 10:00 01/24/22 10:21 Magnesium Oxide 400 Mg Tablet PO 02/23/22 09:59 400 mg DAILY DRAKE Administration Metoprolol Tartrate 100 mg 01/23/22 22:00 01/24/22 10:21 Metoprolol Tartrate 50 Mg Tablet PO 02/22/22 21:59 100 mg BID DRAKE Administration Pantoprazole Sodium 40 mg 01/24/22 10:00 01/24/22 10:22 Pantoprazole 40 Mg Vial IV 02/23/22 09:59 40 mg DAILY DRAKE Administration Potassium Chloride 10 meq 01/24/22 10:00 01/24/22 10:22 Potassium Chloride Tab 10 Meq Tab PO 02/23/22 09:59 10 meq DAILY DRAKE Administration Sucralfate 1 g 01/23/22 22:00 01/24/22 16:49 Sucralfate 1 G Tablet PO 02/22/22 21:59 1 g ACHS DRAKE Administration Tamsulosin HCl 0.4 mg 01/23/22 22:00 01/23/22 21:11 Tamsulosin Hcl 0.4 Mg Cap PO 02/22/22 21:59 0.4 mg HS DRAKE Administration Discontinued Medications Generic Name Dose Route Start Last Admin Trade Name Freq PRN Reason Stop Dose Admin Losartan Potassium 50 mg 01/24/22 16:30 01/24/22 16:49 Losartan Potassium 50 Mg Tablet PO 01/24/22 16:31 50 mg ONCE ONE Administration Pantoprazole Sodium 40 mg 01/24/22 10:00 Pantoprazole 20 Mg Tab PO 02/23/22 09:59 DAILY DRAKE Pantoprazole Sodium 40 mg 01/24/22 00:15 01/24/22 00:25 Pantoprazole 40 Mg Vial IV 02/23/22 00:14 40 mg Q24H DRAKE Administration Intake & Output (Last 24 hours) 01/22/22 01/23/22 01/24/22 01/25/22 11:59 11:59 11:59 11:59 Intake Total 1642 1160 Output Total 3500 400 Balance -1858 760 Weight 85.4 kg Microbiology Results (Last 24 hours) 01/23/22 16:35 Catherized Urine Culture - Preliminary NO GROWTH TO DATE Laboratory Results (Last 24 hours) 01/24/22 01/24/22 01/24/22 16:00 11:53 10:50 WBC RBC Hgb Hct MCV MCH MCHC RDW Plt Count MPV Sodium 137 Potassium 4.0 Chloride 107 Carbon Dioxide 24 Anion Gap 9.6 BUN 11 Creatinine 0.93 Estimated GFR > 60.0 Glucose 147 H POC Glucometer 155 H 130 H Calcium 8.0 L Troponin I 01/24/22 01/24/22 01/23/22 10:50 07:08 21:10 WBC 5.1 RBC 4.11 Hgb 9.7 L Hct 32.3 L MCV 78.6 MCH 23.6 L MCHC 30.0 L RDW 18.6 H Plt Count 102 L MPV 10.2 Sodium Potassium Chloride Carbon Dioxide Anion Gap BUN Creatinine Estimated GFR Glucose POC Glucometer 118 H 121 H Calcium Troponin I 01/23/22 19:00 WBC RBC Hgb Hct MCV MCH MCHC RDW Plt Count MPV Sodium Potassium Chloride Carbon Dioxide Anion Gap BUN Creatinine Estimated GFR Glucose POC Glucometer Calcium Troponin I < 0.012 Orders (Last 24 hours) Category Date Time Status DC [Discontinue Yancey Cath] ROUTINE Care 01/24/22 14:04 Active POCT Glucose Check ACHS Care 01/23/22 19:[address] in Observation ROUTINE Care 01/23/22 18:21 Active Clear Liquid Diet 01/24/22 Breakfast Completed House Regular Diet Diet 01/24/22 Lunch Active BMP Urgent Lab 01/24/22 10:50 Completed CBC AM.LAB Lab 01/25/22 04:00 Ordered CBC Urgent Lab 01/24/22 10:50 Completed POCT GLUCOSE Stat Lab 01/23/22 21:10 Completed POCT GLUCOSE Stat Lab 01/24/22 07:08 Completed POCT GLUCOSE Stat Lab 01/24/22 11:53 Completed POCT GLUCOSE Stat Lab 01/24/22 16:00 Completed TROPONIN Q3H Lab 01/23/22 19:00 Completed Allopurinol 100 mg [Zyloprim 100 mg] Med 01/24/22 10:00 Active 100 mg PO DAILY Diphenhydramine HCl 25 mg [Benadryl 25 mg Capsule Med 01/24/22 10:00 Active ] 25 mg PO BID Furosemide 20 mg [Lasix 20 mg] Med 01/24/22 10:00 Active 20 mg PO DAILY Gabapentin [Neurontin ] Med 01/23/22 22:00 Active 100 mg PO TID Glimepiride 2 mg [Amaryl 2 MG] Med 01/24/22 08:00 Active 1 mg PO BREAKFAST Levothyroxine Sodium 50 Mcg [Synthroid 50 Mcg] Med 01/24/22 07:00 Active 50 mcg PO DAILY@0700 Losartan Potassium 50 mg [Cozaar 50 MG] Med 01/24/22 10:00 Active 50 mg PO DAILY Losartan Potassium 50 mg [Cozaar 50 MG] Med 01/24/22 16:30 Discontinued 50 mg PO ONCE ONE Magnesium Oxide 400 mg [Mag-Ox 400] Med 01/24/22 10:00 Active 400 mg PO DAILY Metoprolol Tartrate 50 mg [Lopressor 50 MG] Med 01/23/22 22:00 Active 100 mg PO BID Pantoprazole 20 mg [Protonix 20MG Tablet] Med 01/24/22 10:00 Discontinued 40 mg PO DAILY Pantoprazole 40 mg [Protonix 40 mg IV] Med 01/24/22 10:00 Active 40 mg IV DAILY Pantoprazole 40 mg [Protonix 40 mg IV] Med 01/24/22 00:15 Discontinued 40 mg IV Q24H Potassium Chloride Tab* [Klor Con] Med 01/24/22 10:00 Active 10 meq PO DAILY Sucralfate 1 gm [Carafate 1 GM] Med 01/23/22 22:00 Active 1 g PO ACHS Tamsulosin HCl 0.4 mg [Flomax 0.4 MG] Med 01/23/22 22:00 Active 0.4 mg PO HS clonazePAM Med 01/23/22 22:00 Active 0.5 mg PO BID Code(s): K62.5 - HEMORRHAGE OF ANUS AND RECTUM (2) Enlarged prostate Current Visit: Yes Status: Acute Code(s): N40.0 - BENIGN PROSTATIC HYPERPLASIA WITHOUT LOWER URINRY TRACT SYMP (3) Atrial fibrillation Current Visit: No Status: Chronic Qualifiers: Code(s): I48.91 - UNSPECIFIED ATRIAL FIBRILLATION (4) CHF (congestive heart failure), NYHA class IV Current Visit: No Status: Chronic Qualifiers: Code(s): I50.9 - HEART FAILURE, UNSPECIFIED
[2022-01-24] MEDS: Flomax 0.4 MG PO SCH (21:07)
[2022-01-25 04:55] LABS: Hematocrit 33.4 % (42-50); Hemoglobin 9.8 g/dL (12.5-18.0); Mean Cell Volume 79.7 fL (78-100); Mean Corpuscular Hemoglobin 23.4 pg (26-32); Mean Corpuscular Hgb Concent. 29.3 g/dL (32-36); Mean Platelet Volume 10.2 fL (7.5-11.0); Platelet Count 110 x10^3/uL (150-450); Red Blood Count 4.19 x10^6/uL (4.1-5.6); Red Cell Distribution Width 18.7 % (11.5-14.0); White Blood Count 5.4 x10^3/uL (4.0-10.5)
[2022-01-25] MEDS: SYNTHROID 50 MCG PO SCH (06:48)
[2022-01-25] MEDS: Carafate 1 GM PO SCH ×3 (06:48→11:17)
[2022-01-25] MEDS: MAG-OX 400 PO SCH (08:23)
[2022-01-25] MEDS: Neurontin PO SCH (08:23)
[2022-01-25] MEDS: Klor Con PO SCH (08:23)
[2022-01-25] MEDS: BENADRYL 25 MG CAPSULE PO SCH (08:23)
[2022-01-25] MEDS: ZYLOPRIM 100 MG PO SCH (08:23)
[2022-01-25] MEDS: Amaryl 2 MG PO SCH (08:23)
[2022-01-25] MEDS: clonazePAM PO SCH (08:23)
[2022-01-25] MEDS: PROTONIX 40 MG IV IV SCH (08:24)
[2022-01-25] MEDS: LASIX 20 MG PO SCH (08:24)
[2022-01-25] MEDS: Lopressor 50 MG PO SCH (08:24)
[2022-01-25] MEDS: Cozaar 50 MG PO SCH (08:24)
[2022-01-25] MEDS ORDERED: Cozaar 50 MG PO SCH (10:00)
[2022-01-25 11:52] VITALS: BP 142/69; PULSE 74; O2SAT 98
--- NOTE | 2022-01-25 12:19 | PCM.DS ---
Discharge Summary Date of Admission: 01/23/22 18:21 Admitting Physician: CHANDANA DUNNE Primary Care Provider: CHANDANA DUNNE Allergies Allergies aspirin Adverse Reaction (Verified 01/23/22 18:54) bleeding Hospital Summary - Hospital Course Hospital Course: Chief Complaint Diagnosis GI BLEED, ABD PAIN, URINARY RETENTION for 1 day Allergies Allergy/AdvReac Type Severity Reaction Status Date / Time aspirin AdvReac Verified 01/23/22 18:54 Vital Signs (Last 24 hours) Temp Pulse Resp BP Pulse Ox 01/25/22 11:51 97.1 F 74 16 142/69 98 01/25/22 07:59 97.1 F 71 16 174/79 99 01/25/22 04:00 97.1 F 84 16 182/78 95 01/25/22 00:00 98.1 F 72 16 188/84 95 01/24/22 20:00 97.5 F 64 16 178/77 95 01/24/22 16:00 97.3 F 62 16 193/77 98 Home Medications Medication Instructions Recorded Confirmed Last Taken Type Diphenhydramine HCl 25 mg 25 mg PO BID 01/23/22 01/23/22 01/23/22 History [Benadryl 25 mg Capsule] clonazePAM [Clonazepam] 0.5 mg PO BID 01/23/22 01/23/22 01/23/22 History Losartan Potassium 50 mg 100 mg PO DAILY 30 Days tablet 01/25/22 Unknown Rx [Cozaar 50 MG] Current Medications Generic Name Dose Route Start Last Admin Trade Name Johnq PRN Reason Stop Dose Admin Allopurinol 100 mg 01/24/22 10:00 01/25/22 08:23 Allopurinol 100 Mg Tablet PO 02/23/22 09:59 100 mg DAILY DRAKE Administration Clonazepam 0.5 mg 01/23/22 22:00 01/25/22 08:23 Clonazepam 0.5 Mg Tablet PO 02/22/22 21:59 0.5 mg BID DRAKE Administration Diphenhydramine HCl 25 mg 01/24/22 10:00 01/25/22 08:23 Diphenhydramine Hcl 25 Mg Capsule PO 02/23/22 09:59 25 mg BID DRAKE Administration Furosemide 20 mg 01/24/22 10:00 01/25/22 08:24 Furosemide 20 Mg Tablet PO 02/23/22 09:59 20 mg DAILY DRAKE Administration Gabapentin 100 mg 01/23/22 22:00 01/25/22 08:23 Gabapentin 100 Mg Capsule PO 02/22/22 21:59 100 mg TID DRAKE Administration Glimepiride 1 mg 01/24/22 08:00 01/25/22 08:23 Glimepiride 2 Mg Tablet PO 02/23/22 07:59 1 mg BREAKFAST DRAKE Administration Sodium Chloride 1,000 mls @ 30 mls/hr 01/23/22 13:00 01/24/22 10:23 Sodium Chloride 0.9% 1000 Ml IV 02/22/22 12:59 100 mls/hr .Q24H DRAKE Administration Levothyroxine Sodium 50 mcg 01/24/22 07:00 01/25/22 06:48 Levothyroxine Sodium 50 Mcg Tablet PO 02/23/22 06:59 50 mcg DAILY@0700 DRAKE Administration Losartan Potassium 100 mg 01/25/22 10:00 01/25/22 09:17 Losartan Potassium 50 Mg Tablet PO 02/24/22 09:59 50 mg DAILY DRAKE Administration Magnesium Oxide 400 mg 01/24/22 10:00 01/25/22 08:23 Magnesium Oxide 400 Mg Tablet PO 02/23/22 09:59 400 mg DAILY DRAKE Administration Metoprolol Tartrate 100 mg 01/23/22 22:00 01/25/22 08:24 Metoprolol Tartrate 50 Mg Tablet PO 02/22/22 21:59 100 mg BID DRAKE Administration Pantoprazole Sodium 40 mg 01/24/22 10:00 01/25/22 08:24 Pantoprazole 40 Mg Vial IV 02/23/22 09:59 40 mg DAILY DRAKE Administration Potassium Chloride 10 meq 01/24/22 10:00 01/25/22 08:23 Potassium Chloride Tab 10 Meq Tab PO 02/23/22 09:59 10 meq DAILY DRAKE Administration Sucralfate 1 g 01/23/22 22:00 01/25/22 11:17 Sucralfate 1 G Tablet PO 02/22/22 21:59 1 g ACHS DRAKE Administration Tamsulosin HCl 0.4 mg 01/23/22 22:00 01/24/22 21:07 Tamsulosin Hcl 0.4 Mg Cap PO 02/22/22 21:59 0.4 mg HS DRAKE Administration Discontinued Medications Generic Name Dose Route Start Last Admin Trade Name Jeri PRN Reason Stop Dose Admin Losartan Potassium 50 mg 01/24/22 10:00 01/25/22 08:24 Losartan Potassium 50 Mg Tablet PO 02/23/22 09:59 50 mg DAILY DRAKE Administration Losartan Potassium 50 mg 01/24/22 16:30 01/24/22 16:49 Losartan Potassium 50 Mg Tablet PO 01/24/22 16:31 50 mg ONCE ONE Administration Pantoprazole Sodium 40 mg 01/24/22 10:00 Pantoprazole 20 Mg Tab PO 02/23/22 09:59 DAILY DRAKE Pantoprazole Sodium 40 mg 01/24/22 00:15 01/24/22 00:25 Pantoprazole 40 Mg Vial IV 02/23/22 00:14 40 mg Q24H DRAKE Administration Intake & Output (Last 24 hours) 01/23/22 01/24/22 01/25/22 01/26/22 11:59 11:59 11:59 11:59 Intake Total 1642 2480 Output Total 3500 3225 Balance -1858 -745 Weight 85.4 kg Microbiology Results (Last 24 hours) 01/23/22 16:35 Catherized Urine Culture - Final NO GROWTH Laboratory Results (Last 24 hours) 01/25/22 01/25/22 01/25/22 11:22 06:50 04:38 WBC 5.4 RBC 4.19 Hgb 9.8 L Hct 33.4 L MCV 79.7 MCH 23.4 L MCHC 29.3 L RDW 18.7 H Plt Count 110 L MPV 10.2 POC Glucometer 186 H 121 H 01/24/22 01/24/22 21:08 16:00 WBC RBC Hgb Hct MCV MCH MCHC RDW Plt Count MPV POC Glucometer 93 155 H Orders (Last 24 hours) Category Date Time Status DC [Discontinue Yancey Cath] ROUTINE Care 01/24/22 14:04 Completed Discharge Routine Discharge 01/25/22 09:14 Ordered CBC AM.LAB Lab 01/25/22 04:38 Completed POCT GLUCOSE Stat Lab 01/24/22 11:53 Completed POCT GLUCOSE Stat Lab 01/24/22 16:00 Completed POCT GLUCOSE Stat Lab 01/24/22 21:08 Completed POCT GLUCOSE Stat Lab 01/25/22 06:50 Completed POCT GLUCOSE Stat Lab 01/25/22 11:22 Completed Losartan Potassium 50 mg [Cozaar 50 MG] Med 01/25/22 10:00 Active 100 mg PO DAILY Losartan Potassium 50 mg [Cozaar 50 MG] Med 01/24/22 16:30 Discontinued 50 mg PO ONCE ONE Patient Care Notes (Last 24 hours) 01/25/22 09:37 Case Management Note by Sol Roberto S/W DAUGHTER PIPE- SHE IS AWARE OF ORDERS FOR DC TODAY. SHE CONTINUES TO PLAN FOR PATIENT TO RETURN HOME TO HER CARE. SHE DENIES ANY NEW NEEDS AT TIME OF DC Initialized on 01/25/22 09:37 - END OF NOTE 01/25/22 09:01 Nursing Note by Shahrzad Lyn ON PT WITH DR. DUNNE. REVIEWED HIGH BLOOD PRESSURES. RECEIVED THE FOLLOWING ORDERS: INCREASE LOSARTAN TO 100MG PO DAILY AND ORDER TO DISCHARGE HOME TODAY 01/25/22. Initialized on 01/25/22 09:01 - END OF NOTE 01/24/22 23:44 Nursing Note by Mónica Hidalgo Pt's BP is 188/84. Received bedtime dose of metoprolol tartrate 100 mg at 21:07. Called and notified Dr. Dunne. No new orders received. Initialized on 01/24/22 23:44 - END OF NOTE Patient losartan increased to 100 mg for better blood pressure control. - Vitals & Intake/Output Vital Signs: Vital Signs Temperature 97.1 F 01/25/22 11:51 Pulse Rate 74 01/25/22 11:51 Respiratory Rate 16 01/25/22 11:51 Blood Pressure 142/69 01/25/22 11:51 O2 Sat by Pulse Oximetry 98 01/25/22 11:51 Intake & Output: Intake & Output 01/23/22 01/24/22 01/25/22 01/26/22 11:59 11:59 11:59 11:59 Intake Total 1642 2480 Output Total 3500 3225 Balance -8498 -423 Weight 85.4 kg - Lab Result Diagrams: 01/25/22 04:38 01/24/22 10:50 Lab Results-Last 24 Hrs: Lab Results-Last 24 Hours 06/22/22 06/22/22 06/23/22 Range/Units 16:00 21:08 04:38 WBC 5.4 (4.0-10.5) x10^3/uL RBC 4.19 (4.1-5.6) x10^6/uL Hgb 9.8 L (12.5-18.0) g/dL Hct 33.4 L (42-50) % MCV 79.7 (78-100) fL MCH 23.4 L (26-32) pg MCHC 29.3 L (32-36) g/dL RDW 18.7 H (11.5-14.0) % Plt Count 110 L (150-450) x10^3/uL MPV 10.2 (7.5-11.0) fL POC Glucometer 155 H 93 (74 to 106) mg/dL 01/25/22 01/25/22 Range/Units 06:50 11:22 WBC (4.0-10.5) x10^3/uL RBC (4.1-5.6) x10^6/uL Hgb (12.5-18.0) g/dL Hct (42-50) % MCV (78-100) fL MCH (26-32) pg MCHC (32-36) g/dL RDW (11.5-14.0) % Plt Count (150-450) x10^3/uL MPV (7.5-11.0) fL POC Glucometer 121 H 186 H (74 to 106) mg/dL Micro Results-Entire Visit: Microbiology 01/23/22 16:35 Urine Culture - Final Catherized NO GROWTH Accuchecks Date 01/24/22 Date 01/24/22 Time 16:08 - Radiology Exams Ordered Rad Exams-Entire Visit: Radiology Procedures Category Date Time Status ABDOMEN AND PELVIS W/0 CONTRAS [CT] Stat Exams 01/23/22 12:57 Completed Discharge Exam General Appearance: no apparent distress, alert Neurologic Exam: alert, oriented x 3, cooperative, normal mood/affect, nml cerebellar function, sensation nml, No motor deficits Eye Exam: PERRL, EOMI, eyes nml inspection Ears, Nose, Throat Exam: normal ENT inspection, pharynx normal, moist mucous membranes Neck Exam: normal inspection, non-tender, supple, full range of motion Respiratory Exam: normal breath sounds, lungs clear, No respiratory distress Cardiovascular Exam: regular rate/rhythm, normal heart sounds Gastrointestinal/Abdomen Exam: soft, No tenderness, No mass Male Genitalia Exam: deferred Rectal Exam: deferred Back Exam: normal inspection, normal range of motion, No CVA tenderness, No vertebral tenderness Extremity Exam: normal inspection, normal range of motion Skin Exam: normal color, warm, dry Final Diagnosis/Problem List - Final Discharge Diagnosis/Problem (1) Bright red blood per rectum Current Visit: Yes Status: Resolved Code(s): K62.5 - HEMORRHAGE OF ANUS AND RECTUM (2) Enlarged prostate Current Visit: Yes Status: Chronic Code(s): N40.0 - BENIGN PROSTATIC HYPERPLASIA WITHOUT LOWER URINRY TRACT SYMP (3) Atrial fibrillation Current Visit: No Status: Chronic Code(s): I48.91 - UNSPECIFIED ATRIAL FIBRILLATION (4) CHF (congestive heart failure), NYHA class IV Current Visit: No Status: Chronic Code(s): I50.9 - HEART FAILURE, UNSPECIFIED (5) Urinary retention due to benign prostatic hyperplasia Current Visit: Yes Status: Resolved Code(s): N40.1 - BENIGN PROSTATIC HYPERPLASIA WITH LOWER URINARY TRACT SYMP; R33.8 - OTHER RETENTION OF URINE (6) Benign prostatic hyperplasia Current Visit: Yes Status: Chronic Code(s): N40.0 - BENIGN PROSTATIC HYPERPLASIA WITHOUT LOWER URINRY TRACT SYMP (7) HTN (hypertension) Current Visit: Yes Status: Chronic Code(s): I10 - ESSENTIAL (PRIMARY) HYPERTENSION - Discharge Discharge Date: 01/25/22 Disposition: Home, Self-Care Condition: Stable Prescriptions: New Losartan Potassium 50 mg [Cozaar 50 MG] 100 mg PO DAILY 30 Days tablet Continue Tamsulosin HCl 0.4 mg [Flomax 0.4 MG] 0.4 mg PO QHS Allopurinol 100 mg [Zyloprim 100 mg] 100 mg PO DAILY Sucralfate 1 gm [Carafate 1 GM] 1 gm PO QID Glimepiride 1 mg PO DAILY Gabapentin 100 mg PO TID Pantoprazole Sodium [Protonix] 40 mg PO DAILY Magnesium Oxide 400 mg [Mag-Ox 400] 400 mg PO DAILY Metoprolol Tartrate 100 mg PO BID Levothyroxine Sodium 50 Mcg [Synthroid 50 Mcg] 50 mcg PO DAILY Furosemide 20 mg [Lasix 20 mg] 20 mg PO QAM #30 tablet Potassium Chloride [Klor-Con 10] 10 meq PO DAILY clonazePAM [Clonazepam] 0.5 mg PO BID Diphenhydramine HCl 25 mg [Benadryl 25 mg Capsule] 25 mg PO BID Discontinued Losartan Potassium [Cozaar] 50 mg PO DAILY Instructions: Severe Abdominal Pain, Adult (DC), Urinary Retention (DC) Follow up with: CHANDANA DUNNE MD [Primary Care Provider] - 02/06/22 2:45 pm ([facility]) Forms: Discharge Instructions
== END 2022-01-25 12:35 | disposition home or self-care (01) ==
LOC: ED 12:42 → MED SURG 18:21
PROVIDERS: ADMIT General Practice; ATTEND General Practice
DX: K62.5 Hemorrhage of anus and rectum (principal); N40.0 Benign prostatic hyperplasia without lower urinary tract symptoms; I48.91 Unspecified atrial fibrillation; I11.0 Hypertensive heart disease with heart failure; I50.9 Heart failure, unspecified; R33.8 Other retention of urine; I25.10 Atherosclerotic heart disease of native coronary artery without angina pectoris; E11.9 Type 2 diabetes mellitus without complications; E03.9 Hypothyroidism, unspecified; E78.00 Pure hypercholesterolemia, unspecified; Z79.899 Other long term (current) drug therapy; Z20.828 Contact with and (suspected) exposure to other viral communicable diseases; Z85.46 Personal history of malignant neoplasm of prostate; Z85.820 Personal history of malignant melanoma of skin
CPT/HCPCS: 0241U; 36000; 36415; 51702; 74176; 80048; 80053; 81015; 82947; 83690; 84484; 85025; 85027; 87086; 99285; G0378; A9270-GY